=== PATIENT | male | born 1945 | race Caucasian/White ===

== ENCOUNTER 2022-03-22 15:12 | Inpatient (IN) ==
--- NOTE | 2022-03-22 16:50 | XRay Report ---
XR chest 2V PA/lateral CLINICAL HISTORY: Weakness, hypotension COMPARISON STUDY: No previous studies for comparison. FINDINGS: Right sided [id number] is in place. There are median sternotomy. Mild cardiomegaly is no walter. There is no evidence for pulmonary edema. No consolidation to suggest pneumonia. No pneumothorax or pleural effusion. IMPRESSION: No acute cardiopulmonary findings. ACT 112: Negative or not required by law. Electronically signed by: Jason Melendez M.D. 03/22/2022 4:48 PM
[2022-03-22 17:22] LABS: Basophils # (auto) 0.03 K/uL (0-0.2); Basophils % (auto) 0.4 %; Eosinophils # (auto) 0.11 K/uL (0-0.50); Eosinophils % (auto) 1.5 %; Hematocrit (blood only) 32.2 % (42.0-52.0); Hemoglobin 11.2 g/dl (14.0-18.0); Immature Granulocytes # (auto) 0.02 K/uL (0.01-0.20); Immature Granulocytes % (auto) 0.3 %; Lymphocytes # (auto) 0.99 K/uL (1.2-3.4); Lymphocytes % (auto) 13.7 %; Mean Corpuscular Hemoglobin 29.8 pg (25.0-34.0); Mean Corpuscular Hgb Conc 34.8 g/dL (32.0-36.0); Mean Corpuscular Volume 85.6 fL (80.0-100.0); Mean Platelet Volume 11.8 fL (9.4-12.4); Monocytes # (auto) 0.46 K/uL (0.11-0.59); Monocytes % (auto) 6.4 %; Neutrophils # (auto) 5.62 K/uL (1.40-6.50); Neutrophils % (auto) 77.7 %; Platelet Count 118 K/uL (130-400); RDW Coefficient of Variation 13.7 % (11.5-14.5); RDW Standard Deviation 42.7 fL (36.4-46.3); Red Blood Count 3.76 M/uL (4.70-6.10); White Blood Count 7.23 K/ul (4.8-10.8)
[2022-03-22 17:39] LABS: Alanine Aminotransferase 14 U/L (7-52); Albumin Level 4.4 gm/dl (3.4-5.0); Anion Gap 16 (3-11); Aspartate Aminotransferase 22 U/L (13-39); BUN Creatinine Ratio 14.8 (10-20); Bilirubin,Total 0.4 mg/dl (0.2-1.0); Blood Urea Nitrogen 126 mg/dl (6-23); Calcium 7.1 mg/dl (8.5-10.1); Carbon Dioxide 12 mmol/L (21-32); Chloride 108 mmol/L (98-107); Est GFR (African American) 6.3 ml/min; Est GFR (Non-African American) 5.4 ml/min; Glucose 165 mg/dl (70-99(Fasting)); Magnesium 1.6 mg/dl (1.7-2.4); Potassium 3.6 mmol/L (3.5-5.1); Sodium 136 mmol/L (136-145); Total Protein 7.4 gm/dl (6.0-8.3)
[2022-03-22 17:40] LABS: Albumin Globulin Ratio 1.5 (0.9-2); Alkaline Phosphatase 76 U/L (34-104); C Reactive Protein 3.25 mg/dl (0-0.5)
[2022-03-22 17:47] LABS: Prothrombin Time 80.9 Seconds (9.0-12.0)
[2022-03-22 17:49] LABS: INR 8.5 (0.9-1.1)
[2022-03-22 17:52] LABS: Lipase 2988 U/L (11-82)
[2022-03-22] MEDS ORDERED: SODIUM CHLORIDE 0.9% 1000ML 2,000 ML IV ONE (18:20)
--- NOTE | 2022-03-22 18:31 | History & Physical Report ---
Date of Service March 22, 2022 History of Present Illness Primary Care Provider: Doug Franklin MD Messi Londono is a 77 year old male who presents to the ER with Allergies Allergy/AdvReac Type Severity Reaction Status Date / Time ASHLEY Inhibitors AdvReac Intermediate COUGH Verified 02/23/22 14:56 Home Medications Medication Instructions Recorded Confirmed Type simvastatin 20 mg tablet 20 mg PO DAILY #90 tabs 08/11/21 02/23/22 Rx metoprolol tartrate 50 mg tablet 50 mg PO BID #60 tabs 09/08/21 02/23/22 Rx hydrochlorothiazide 12.5 mg tablet 12.5 mg PO .COMPLEX #45 tabs 10/06/21 02/23/22 Rx warfarin 5 mg tablet 5 mg PO .COMPLEX #90 tabs 03/16/22 Rx Past Med/Surg History Medical History Anemia Atrial fibrillation Dyslipidemia Elevated prostate specific antigen (PSA) Hypertension Multiple myeloma Surgical History H/O stem cell transplant S/P AVR (aortic valve replacement) Family History Mother Alzheimer disease Sister Breast cancer Father Myocardial infarction Denies family history of Ovarian cancer Prostate cancer Colorectal cancer Social History Smoking Status: Never smoker Hx Alcohol Use: No Hx Substance Use: No Preferred Language: Welsh Communication Ability: Effective marital status: Current Living Situation: Spouse current occupational status: employed 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 Feels Safe at Home: Yes Childhood Exposure to Second-Hand Smoke: No Dental Care, Regularly: Yes Physical Activity Frequency: 1-2 Times per Week Physical Activity Frequency Comment: walk Seatbelt Use: always Sunscreen Use: Yes Results & Data Results & Data ([facility]) Vital Signs (Past 12 Hours) Vital Signs Temp Pulse Resp BP Pulse Ox 03/22/22 17:10 62 12 122/57 L 100 03/22/22 17:17 36.6 C 03/22/22 15:17 36.5 C 74 14 123/66 100 PG Care Time/CCT Total # of Minutes Spent Total Time Spent with Patient: Total time spent is greater than 50% in coordination of care (as documented) at patient's floor/unit and/or counseling patient: Coding
[2022-03-22] MEDS ORDERED: LACTATED RINGER'S 2,000 ML IV ONE (18:42)
[2022-03-22] MEDS ORDERED: LACTATED RINGER'S 1,000 ML IV SCH (19:00)
[2022-03-22] MEDS ORDERED: MAGNESIUM SULFATE / D5W 1 GM/100 ML BAG IV SCH (19:00)
--- NOTE | 2022-03-22 19:01 | History & Physical Report ---
Date of Service March 22, 2022 Assessment & Plan (1) Diarrhea: Plan: This is a 77-year-old male with a history of atrial fibrillation, mechanical aortic valve replacement, chronic Warfarin use, dyslipidemia, hypertension, multiple myeloma, history of stem cell transplant who presented to [facility] for evaluation of profuse diarrhea, subsequently found to have an appreciable ANDREA on admission labs. [id number] Watery Diarrhea - In context of >6 months of intermittent, non voluminous watery diarrhea -- 2 weeks of worsening high-volume watery diarrhea with associated anorexia - ESR 47, CRP 3.25 on arrival; no leukocytosis; lytes largely stable in setting of profound ANDREA - Check nCT-A/P - Check BioFire and C diff -- if negative, consider fecal calprotectin and (if relevant) possibly fecal fat studies - Ample hydration will be provided as outlined below - Given length of time this has been ongoing, will likely need colonoscopy (last >10 years ago per patient) while here or as outpatient (can consider GI consult once studies return) (2) Acute kidney injury: Plan: ANDREA No reported history of prior CKD; however, per [facility] notes, 10/2021 labs with Cr 1.7 In the history of worsening watery diarrhea x2 weeks, suspect that ANDREA is secondary to intravascular depletion/dehydration with possible ATN component, likely compounded further by ongoing hydrochlorothiazide therapy Obtain urine studies including microscopy, sodium, creatinine Lactated Ringer's at 125 cc an hour following additional boluses No evidence of appreciable electrolyte derangement or findings that would necessitate dialysis at this time Trend labs, gentle electrolyte repletion as necessary Hold on nephrology consult right now -- consider if worsening / signs of dysfunction, impending needs for dialysis (3) Atrial fibrillation: Plan: Paroxysmal AFib In sinus rhythm on arrival, rate controlled with metoprolol Hold warfarin in the setting of supratherapeutic INR INR goal: 2.53.0 (4) Dyslipidemia: Plan: Hyperlipidemia Continue statin (5) Hypertension: Plan: Hypertension Hold hydrochlorothiazide in setting of profound ANDREA as above Pressures have been stable since arrival; will reduce metoprolol dose to 25 mg twice daily for now, increase back to home dose of 50 mg twice daily once acute needs have stabilized (6) S/P AVR (aortic valve replacement): Plan: AoV Replacement - Stable. On Warfarin. (7) H/O stem cell transplant: Plan: MM s/p Stem Cell Transplant in 2014 - Follows with [facility] -- completed chemotherapy in 2016 - Stable and in-remission. (8) Increased anion gap metabolic acidosis: Plan: Anion gap metabolic acidosis -- gap acidemia with AG 16 / HCO3 12 In the context of ongoing diarrhea and findings consistent with dehydration Likely more subacute at this point. Lactate 0.7 on admission but this was taken after several bags of fluid had been administered -- suspect this was a component prior, as is uremia. Continue fluid therapy as above, recheck in AM -- consider secondary work-up for AGMA if no improvement on serial labs over next several days (9) Supratherapeutic INR: Plan: Supratherapeutic INR - INR 8.5 on arrival - Suspect largely d/t poor PO intake over past several weeks - Hold home warfarin - Will defer vitamin K therapy for now -- if increasing/not changing on day-to-day labs, can consider 5-10mg IM (10) Elevated lipase: Plan: Elevated Lipase - at 3000 on admission - Clinically does not appear c/w pancreatitis. Likely contributory from renal insufficiency, ?possibly intestinal inflammation, acidemia - CT-A/P as above, ample hydration Plan Code: Full Diet: regualr Prophylaxis: Warfarin therapy, supratherapeutic INR, hold for now Dispo: MS Admission and Anticipated Discharge Date Admission Date: Mar 22, 2022 History of Present Illness Primary Care Provider: Doug Franklin MD This is a 77-year-old male with a history of atrial fibrillation, mechanical aortic valve replacement, chronic Warfarin use, dyslipidemia, hypertension, multiple myeloma, history of stem cell transplant who presented to [facility] for evaluation of weakness. Over the past 6 months, patient endorses intermittent episodes of diarrhea. He says they were relatively lower volume and did not contain blood/mucus. He says that over the past two weeks, they have increased in volume and frequency. Several times a day, very watery in appearance. No melena or hematochezia. He denies abdominal pain. He says his appetite has been lousy. He is not drinking much water or eating much each day -- really just toast and coffee, per his . No nausea, vomiting. Denies recent CP/palpitations/SOB/cough. Apparently he was notably hypothermic at home to 91.9F in the day prior to admission. He has not been confused, but has been extremely weak, "spending all day in bed, 24/" over the past week or so. His last colonoscopy was >10 years ago. He endorses a long-term history of loose stools. He denies EtOH, tobacco, or drug use. No herbal remedies or supplements. In the ER, patient was found to have normal vital signs. Admission weight at 73.9 kg from 77.6 kg in July 2021. Admission labs reveal WBC 7.2, hemoglobin 11.2, platelet 118, relative lymphopenia, ESR 47, CRP 3.25, supratherapeutic INR 8.5. Metabolic panel revealing BUN 126/creatinine 8.5, gap acidemia with AG 16 / HCO3 12, potassium 3.6, magnesium 1.6, calcium 7.1. Lipase notably elevated at 3000. TSH 1.7. CXR normal. He was given 2 L of normal saline. Allergies Allergy/AdvReac Type Severity Reaction Status Date / Time ASHLEY Inhibitors AdvReac Intermediate COUGH Verified 03/22/22 19:14 Home Medications Medication Instructions Recorded Confirmed Type simvastatin 20 mg tablet 20 mg PO DAILY #90 tabs 08/11/21 03/22/22 Rx metoprolol tartrate 50 mg tablet 50 mg PO BID #60 tabs 09/08/21 03/22/22 Rx hydrochlorothiazide 12.5 mg tablet 12.5 mg PO .COMPLEX #45 tabs 10/06/21 03/22/22 Rx warfarin 5 mg tablet 5 mg PO .COMPLEX #90 tabs 03/16/22 03/22/22 Rx Past Med/Surg History Medical History Anemia Atrial fibrillation Dyslipidemia Elevated prostate specific antigen (PSA) Hypertension Multiple myeloma Surgical History H/O stem cell transplant S/P AVR (aortic valve replacement) Family History Mother Alzheimer disease Sister Breast cancer Father Myocardial infarction Denies family history of Ovarian cancer Prostate cancer Colorectal cancer Social History Smoking Status: Never smoker Hx Alcohol Use: No Hx Substance Use: No Preferred Language: Haitian Communication Ability: Effective Felt Hanger Required: No Beliefs That Will Affect Care: None marital status: Current Living Situation: Spouse current occupational status: employed 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 HEENT: NCAT. - Eyes - Sclera are white, anicteric, and without injection. - Mouth - MMM - Neck - supple, no appreciable JVD Cardiac: Normal rate and regular rhythm; S1 and S2 present with grade 2/6 ESTUARDO at the RUSB radiating toward the apex. Pulmonary: Good respiratory effort with symmetric expansion of the chest. No use of accessory muscles. Lungs were clear to auscultation bilaterally with no crackles or wheezes. Abdominal: Normoactive bowel sounds. Abdomen was soft, nondistended, and non- tender to palpation. Extremities: Upper and lower extremities are warm and well perfused. No peripheral edema in the lower extremities bilaterally Psych: Well-developed, well-nourished, appropriately dressed for occasion. Behavior is cooperative and appropriate. Affect is WNL. Insight is appropriate. Results & Data Results & Data ([facility]) Vital Signs (Past 12 Hours) Vital Signs Temp Pulse Resp BP Pulse Ox 03/22/22 17:10 62 12 122/57 L 100 03/22/22 17:17 36.6 C 03/22/22 15:17 36.5 C 74 14 123/66 100 Laboratory Results Abnormal lab results 03/22/22 03/22/22 03/22/22 Range/Units 16:42 16:42 16:42 RBC 3.76 L (4.70-6.10) M/uL Hgb 11.2 L (14.0-18.0) g/dl Hct 32.2 L (42.0-52.0) % Plt Count 118 L (130-400) K/uL Lymph # (Auto) 0.99 L (1.2-3.4) K/uL ESR 47 H (0-20) mm/hr PT (9.0-12.0) Seconds INR (0.9-1.1) Chloride 108 H (98-107) mmol/L Carbon Dioxide 12 L (21-32) mmol/L Anion Gap 16 H (3-11) BUN 126 H (6-23) mg/dl Creatinine 8.50 H* (0.6-1.4) mg/dl Glucose 165 H (70-99(Fasting)) mg/dl Calcium 7.1 L (8.5-10.1) mg/dl Magnesium 1.6 L (1.7-2.4) mg/dl C-Reactive Protein 3.25 H (0-0.5) mg/dl Lipase 2988 H (11-82) U/L 03/22/22 Range/Units 16:42 RBC (4.70-6.10) M/uL Hgb (14.0-18.0) g/dl Hct (42.0-52.0) % Plt Count (130-400) K/uL Lymph # (Auto) (1.2-3.4) K/uL ESR (0-20) mm/hr PT 80.9 H (9.0-12.0) Seconds INR 8.5 H* (0.9-1.1) Chloride (98-107) mmol/L Carbon Dioxide (21-32) mmol/L Anion Gap (3-11) BUN (6-23) mg/dl Creatinine (0.6-1.4) mg/dl Glucose (70-99(Fasting)) mg/dl Calcium (8.5-10.1) mg/dl Magnesium (1.7-2.4) mg/dl C-Reactive Protein (0-0.5) mg/dl Lipase (11-82) U/L Supervising Physician Co-Signing Physician Notes I personally saw and examined the patient. I verified all taylor points and agree with Resident Physician PGY 3 Dylon Jang, with the following exceptions and/or additions: 77-year-old male presents to the ER with multiple months of diarrhea but acute worsening in the last 2 weeks. Significant renal failure in the emergency room with creatinine 8.5 and BUN 126. O/E A&Ox3, in no acute distress, HS1+2, no murmurs, Chest CTAB, Abdo SNT, no CVA tenderness A/P Acute kidney injury - suspect secondary to diarrhea and fluid loss over a long period of time in the setting of hydrochlorothiazide use. No obstructive cause on CT. No acute need for dialysis with no pulmonary edema, hyperkalemia or significant uremic symptoms. Strict I&Os, daily weights. Mixed Anion gap and non-anion gap metabolic acidosis - we will initially rehydrate with 2L LR bolus, lactate normal following this therefore unclear if this represented the anion gap although most likely due to uremia and no need for further work this up. Will repeat labs following the fluid resuscitation to decide on sodium bicarb drip Pancreatic mass - seen on CT, will need to perform with contrast once renal function improved, will get CA19-9 with AM labs Renal mass - seen on CT, will need to repeat CT with contrast once renal function improved Diarrhea/enteritis - stool PCR and c. diff testing pending. CT with non-specific enteritis ?related to pancreatic lesion. Consider Imodium once infectious etiology ruled out. Elevated INR - no current bleeding from history. Not significantly anemic. We will hold warfarin but given mechanical heart valve will avoid reversal agent at this time. Resident Activity Tracking Resident Involvement: Resident Care Provided Care Provided: Adult Hospital Medicine
[2022-03-22] MEDS: POTASSIUM CHLORIDE / WTR 10 MEQ/100 ML PLCT IV SCH (19:16)
--- NOTE | 2022-03-22 20:57 | CT Scan Report ---
CT SCAN OF THE ABDOMEN AND PELVIS WITHOUT IV CONTRAST CLINICAL HISTORY: Acute renal insufficiency. Diarrhea. COMPARISON STUDY: No priors. TECHNIQUE: CT scan of the abdomen and pelvis is performed from the lung bases to the proximal femora. Images are reviewed in the axial, sagittal, and coronal planes. IV contrast was not administered for this examination due to poor renal function. Note that the examination is suboptimal without oral an d IV contrast. A dose lowering technique was utilized adhering to the principles of ALARA. CT DOSE: 383.50 mGy.cm FINDINGS: Lung bases: The heart is enlarged and without pericardial effusion. There is bibasilar scarring/atele ctasis. Traction bronchiectasis is seen at both lung bases. Visualized upper septal thickening indica olga fluid overload/congestive failure. No airspace consolidation or pleural effusion is identified. T here is a small hiatal hernia. Liver: The unenhanced liver is normal in size, contour, and attenuation. There is no intrahepatic elizabeth iary ductal dilatation. Gallbladder: There are calcified gallstones without CT evidence of acute cholecystitis. Spleen: Normal in size and attenuation. Pancreas: Question a 1.8 cm low-attenuation lesion within the uncinate process of the pancreas. The u nenhanced pancreas is otherwise grossly unremarkable but not well evaluated without IV contrast. Adrenal glands: Unremarkable. Kidneys: The unenhanced kidneys are normal in size and without hydronephrosis. There are no renal derrek culi identified. Simple and complex/hyperdense renal cyst measure up to 2.9 cm. A 1.2 cm lesion arisi ng from the right lower pole on image #168 distended criteria for a cyst. Abdominal vasculature: The abdominal aorta is normal in course and caliber noting advanced atheroscle rotic calcification. Bowel: There is no bowel obstruction. There are fluid-filled loops of small bowel. The appendix is w ell-visualized and normal. Peritoneum: There is no intraperitoneal free air or abdominal ascites. There is a fat-containing umbi lical hernia. Lymphadenopathy: None. Pelvic viscera: The bladder is significantly distended but otherwise normal appearance. The prostate gland is enlarged and heterogeneous. Skeletal structures: The skeletal structures are osteopenic. The skeletal structures are heterogeneou sly osteopenic. There is mild lumbosacral spondylosis. There is a chronic superior endplate compressi on deformity of T12. No lytic or blastic lesions are seen. IMPRESSION: 1. There are nonspecific fluid-filled loops of small bowel. No bowel wall thickening or inflammation is seen. Correlate clinically for evidence of a nonspecific enteritis. 2. There is no bowel obstruction. 3. Question a 1.8 cm low-attenuation lesion within the uncinate process of the pancreas. This is not well assessed without IV contrast and may be artifactual. Correlation with a contrast enhanced pancre as protocol CT scan is recommended for further assessment and to exclude underlying pancreatic lesion . 4. There is a 12 mm indeterminant lesion arising from the right kidney. This can also be further asse ssed on the contrast-enhanced CT scan. 5. Cholelithiasis. 6. Cardiomegaly. 7. Bladder distention. 8. Additional findings as above. ACT 112: Negative or not required by law. Electronically signed by: Cuauhtemoc Fuchs M.D. 03/22/2022 8:55 PM
[2022-03-22 21:18] LABS: Appearance Urine Clear (Clear); Bacteria Urine Automated Negative (Negative); Bilirubin Urine Negative (Negative); Blood Urine Trace (Negative); Color Urine Yellow; Glucose Urine UA Negative (Negative); Ketones Urine Negative (Negative); Leukocyte Esterase Urine Negative (Negative); Nitrite Urine Negative (Negative); Protein Urine 1+ (Negative); RBC Urine Automated 0-4 /hpf (0-4); Urobilinogen Urine Negative (Negative)
[2022-03-22 21:31] LABS: Base Excess VBG -16.7 mEq/L; HCO3 VBG 11 mmol/L; Oxygen Saturation VBG < 60.0 %; PCO2 VBG 30 mmHg (38-50); PO2 VBG 34 mmHg; pH VBG 7.16 (7.36-7.41)
[2022-03-22] MEDS: METOPROLOL TARTRATE 25 MG TAB PO SCH (21:46)
[2022-03-22 22:18] LABS: Anion Gap 16 (3-11); Calcium 6.9 mg/dl (8.5-10.1); Carbon Dioxide 10 mmol/L (21-32); Chloride 113 mmol/L (98-107); Potassium 3.3 mmol/L (3.5-5.1); Sodium 139 mmol/L (136-145)
[2022-03-22 22:29] LABS: Blood Urea Nitrogen 118 mg/dl (6-23); Est GFR (African American) 6.8 ml/min; Est GFR (Non-African American) 5.9 ml/min; Glucose 124 mg/dl (70-99(Fasting))
[2022-03-23] MEDS ORDERED: SODIUM BICARBONATE 8.4% 100 MEQ in DEXTROSE 5% 1,000 ML IV SCH
[2022-03-23] MEDS ORDERED: STAT IV STA ×2 (00:03)
--- NOTE | 2022-03-23 00:22 | Emergency Department Note ---
Impression & Plan Acute renal failure, Supratherapeutic INR, Acute pancreatitis Admit to the [facility] for aggressive crystalloid therapy ED Provider Note NAME: HIRAM BEAL AGE: 77 SEX: M ARRIVES VIA: Walk-In INFORMANT: Patient and his ED PROVIDER(S): Miriam Lucia DO CHIEF COMPLAINT: Diarrhea and weakness PLAN: Disposition: Admit to the [facility] Condition: Guarded MEDICAL DECISION MAKING: This is a 77-year-old male patient who presents to the emergency department with diarrhea and weakness over the last 2 weeks. Laboratory studies reveal acute renal failure with a creatinine of 8.5. The patient's baseline is 1.2. The patient has had severe diarrhea for more than 2 weeks. The source of the diarrhea is unknown at this time. He denies being on antibiotics in the past couple of weeks. He does have routine colonoscopies according to the patient and his . He has had not had weight loss in the past 6 months. Patient is mildly anemic with a hemoglobin of 11.2. He does have a supratherapeutic INR at 8.5. Of note, the patient also has a lipase of 2988. On physical exam, he has no significant appreciable abdominal pain in the epigastrium. He does have some generalized abdominal pain in the right and left lower quadrants of the abdomen. The patient is receiving aggressive IV crystalloid therapy through to IV lines. He appears significantly dehydrated on physical exam. I have discussed the case with the [facility] and they will admit the patient to the hospital for aggressive management of acute renal failure. Triage Nursing notes reviewed and agree with them. Additional history obtained from the patient's is at the bedside Vital Signs: reviewed and remarkable for hypotension Differential diagnosis: Dehydration, renal insufficiency, infectious diarrhea, pancreatitis, UTI ER treatment provided: IV normal saline bolus Diagnostics interpreted by me: ECG: Normal sinus rhythm at a rate of 67 with PACs. There is no ST segment elevation or signs of ischemia. There is no ectopy Cardiac Monitoring: Normal sinus rhythm at 68 Laboratory studies: See below Imaging studies: As per my interpretation Portable chest x-ray: No acute pulmonary infiltrates or consolidation HPI: 77/M arrives for evaluation of diarrhea and weakness. According to the patient's , the patient has had persistent diarrhea and weakness over the past 2 weeks. He has had significant decreased appetite. They became more concerned today when the patient was noted to be hypothermic and hypotensive. Patient has been trying to drink clear liquids but had signs of dehydration. PAST MEDICAL HISTORY:Multiple myeloma, hypertension, [facility] aortic valve replacement 1997 PAST SURGICAL HISTORY:See Below FAMILY HISTORY:See Below SOCIAL HISTORY:Patient lives with his ; he does not drink alcohol or smoke. HOME MEDICATIONS:See ALLERGIES:See list VITALS:See Below PHYSICAL EXAMINATION: HEENT: Head - normocephalic and atraumatic Pupils are equal, round, and reactive to light. Extraocular eye muscles are intact, and sclera are anicteric. Nose -extremely dry nasal mucosa without discharge. Mouth - extremely dry buccal mucosa. Oropharynx is nonerythematous and there is no tonsillar exudate or edema noted. Neck: Supple; no cervical lymphadenopathy Heart: Regular rate and rhythm. There is a normal S1 and S2 with no murmurs, clicks, or gallops appreciated. Lungs: Clear to auscultation bilaterally with no wheezes, rales, or rhonchi. Abdomen: Soft, completely nontender, nondistended, with good bowel sounds. There are no palpable pulsatile masses or hepatosplenomegaly. There is no guarding, rigidity, or rebound noted. Extremities: No evidence of cyanosis, clubbing, or edema. There are easily palpable peripheral pulses. Skin: Extremely dry with poor turgor and no rashes. ED COURSE: Times/Reassessments: 1755 patient was evaluated in room C6. A complete history and physical was performed. A twelve-lead EKG was obtained as described above. An IV lock was initiated and labs were drawn as above. An order was placed for continuous cardiac monitoring. The patient was in a normal sinus rhythm at a rate of 68. Patient was bolused with IV normal saline solution. A second IV lock was initiated and a second liter of IV normal saline was initiated. Portable chest x-ray was performed as described above. I have personally spent greater than 30 minutes of critical care time in the direct management of this patient. This includes bedside care, interpretation of diagnostic studies, and testing, discussion with consultants, patient, and family members, and other required patient management activities. This 30 minutes is in excess of all separately billable procedures. Miriam Lucia DO Past Med/Surg History Medical History Anemia Atrial fibrillation Dyslipidemia Elevated prostate specific antigen (PSA) Hypertension Multiple myeloma Surgical History H/O stem cell transplant S/P AVR (aortic valve replacement) Family History Mother Alzheimer disease Sister Breast cancer Father Myocardial infarction Denies family history of Ovarian cancer Prostate cancer Colorectal cancer Social History Smoking Status: Never smoker Hx Alcohol Use: No Hx Substance Use: No Preferred Language: Moroccan Communication Ability: Effective Sprinkling System Installer Required: No Beliefs That Will Affect Care: None marital status: Current Living Situation: Spouse current occupational status: employed current occupation: [employer] Feels Safe at Home: Yes Childhood Exposure to Second-Hand Smoke: No Dental Care, Regularly: Yes Physical Activity Frequency: 1-2 Times per Week Physical Activity Frequency Comment: walk Seatbelt Use: always Sunscreen Use: Yes Assistive Devices: None Allergies Allergies Allergy/AdvReac Type Severity Reaction Status Date / Time ASHLEY Inhibitors AdvReac Intermediate COUGH Verified 03/22/22 19:14 Home Meds Previous Rx's Medication Instructions Recorded simvastatin 20 mg tablet 20 mg PO DAILY #90 tabs 08/11/21 metoprolol tartrate 50 mg tablet 50 mg PO BID #60 tabs 09/08/21 hydrochlorothiazide 12.5 mg tablet 12.5 mg PO .COMPLEX #45 tabs 10/06/21 warfarin 5 mg tablet 5 mg PO .COMPLEX #90 tabs 03/16/22 Results & Data (ED) Vital Signs Vital Signs - 24 hr 03/22/22 17:17 03/22/22 17:10 03/22/22 17:20 Temperature 36.6 C Temperature Source Oral Pulse Rate 62 62 Pulse Rate from SpO2 Sensor 62 62 Respiratory Rate 12 16 Blood Pressure 122/57 L Blood Pressure Mean 78 Pulse Oximetry 100 100 03/22/22 17:30 03/22/22 17:30 03/22/22 17:40 Temperature Temperature Source Pulse Rate Pulse Rate from SpO2 Sensor 65 62 Respiratory Rate Blood Pressure 111/57 L Blood Pressure Mean 75 Pulse Oximetry 100 100 03/22/22 17:50 03/22/22 18:00 03/22/22 18:00 Temperature Temperature Source Pulse Rate Pulse Rate from SpO2 Sensor 64 66 Respiratory Rate Blood Pressure 125/60 Blood Pressure Mean 81 Pulse Oximetry 100 100 03/22/22 18:10 03/22/22 18:20 03/22/22 18:30 Temperature Temperature Source Pulse Rate Pulse Rate from SpO2 Sensor 67 63 Respiratory Rate Blood Pressure 119/58 L Blood Pressure Mean 78 Pulse Oximetry 100 98 03/22/22 18:30 03/22/22 18:40 03/22/22 18:50 Temperature Temperature Source Pulse Rate 66 Pulse Rate from SpO2 Sensor 64 64 67 Respiratory Rate 17 Blood Pressure Blood Pressure Mean Pulse Oximetry 100 100 100 03/22/22 19:00 03/22/22 19:00 Temperature Temperature Source Pulse Rate 69 Pulse Rate from SpO2 Sensor 68 Respiratory Rate 17 Blood Pressure 119/58 L Blood Pressure Mean 78 Pulse Oximetry 100 Laboratory Data 03/22/22 16:42 03/22/22 21:02 Lab Results 03/22/22 03/22/22 03/22/22 Range/Units 16:42 16:42 16:42 WBC 7.23 (4.8-10.8) K/ul RBC 3.76 L (4.70-6.10) M/uL Hgb 11.2 L (14.0-18.0) g/dl Hct 32.2 L (42.0-52.0) % MCV 85.6 (80.0-100.0) fL MCH 29.8 (25.0-34.0) pg MCHC 34.8 (32.0-36.0) g/dL RDW Std Deviation 42.7 (36.4-46.3) fL RDW Coeff of Berto 13.7 (11.5-14.5) % Plt Count 118 L (130-400) K/uL MPV 11.8 (9.4-12.4) fL Immature Gran % (Auto) 0.3 % Neut % (Auto) 77.7 % Lymph % (Auto) 13.7 % [place] % (Auto) 6.4 % Eos % (Auto) 1.5 % Baso % (Auto) 0.4 % Neut # (Auto) 5.62 (1.40-6.50) K/uL Lymph # (Auto) 0.99 L (1.2-3.4) K/uL [place] # (Auto) 0.46 (0.11-0.59) K/uL Eos # (Auto) 0.11 (0-0.50) K/uL Baso # (Auto) 0.03 (0-0.2) K/uL Immature Gran # (Auto) 0.02 (0.01-0.20) K/uL ESR 47 H (0-20) mm/hr PT (9.0-12.0) Seconds INR (0.9-1.1) Sodium 136 (136-145) mmol/L Potassium 3.6 (3.5-5.1) mmol/L Chloride 108 H (98-107) mmol/L Carbon Dioxide 12 L (21-32) mmol/L Anion Gap 16 H (3-11) BUN 126 H (6-23) mg/dl Creatinine 8.50 H* (0.6-1.4) mg/dl Est Cr Clr Drug Dosing Not Reportable Est GFR ( Amer) 6.3 ml/min Est GFR (Non-Af Amer) 5.4 ml/min BUN/Creatinine Ratio 14.8 (10-20) Glucose 165 H (70-99(Fasting)) mg/dl Calcium 7.1 L (8.5-10.1) mg/dl Magnesium 1.6 L (1.7-2.4) mg/dl Total Bilirubin 0.4 (0.2-1.0) mg/dl AST 22 (13-39) U/L ALT 14 (7-52) U/L Alkaline Phosphatase 76 (34-104) U/L Troponin I High Sens 18.0 (0-20) pg/ml C-Reactive Protein 3.25 H (0-0.5) mg/dl Total Protein 7.4 (6.0-8.3) gm/dl Albumin 4.4 (3.4-5.0) gm/dl Globulin 3.0 (2.5-4.0) gm/dl Albumin/Globulin Ratio 1.5 (0.9-2) Lipase 2988 H (11-82) U/L TSH (0.300-4.500) uIu/ml SARS-CoV-2, RNA, NAAT (NEGATIVE) 03/22/22 03/22/2223 Range/Units 16:42 16:42 18:35 WBC (4.8-10.8) K/ul RBC (4.70-6.10) M/uL Hgb (14.0-18.0) g/dl Hct (42.0-52.0) % MCV (80.0-100.0) fL MCH (25.0-34.0) pg MCHC (32.0-36.0) g/dL RDW Std Deviation (36.4-46.3) fL RDW Coeff of Berto (11.5-14.5) % Plt Count (130-400) K/uL MPV (9.4-12.4) fL Immature Gran % (Auto) % Neut % (Auto) % Lymph % (Auto) % [place] % (Auto) % Eos % (Auto) % Baso % (Auto) % Neut # (Auto) (1.40-6.50) K/uL Lymph # (Auto) (1.2-3.4) K/uL [place] # (Auto) (0.11-0.59) K/uL Eos # (Auto) (0-0.50) K/uL Baso # (Auto) (0-0.2) K/uL Immature Gran # (Auto) (0.01-0.20) K/uL ESR (0-20) mm/hr PT 80.9 H (9.0-12.0) Seconds INR 8.5 H* (0.9-1.1) Sodium (136-145) mmol/L Potassium (3.5-5.1) mmol/L Chloride (98-107) mmol/L Carbon Dioxide (21-32) mmol/L Anion Gap (3-11) BUN (6-23) mg/dl Creatinine (0.6-1.4) mg/dl Est Cr Clr Drug Dosing Est GFR ( Amer) ml/min Est GFR (Non-Af Amer) ml/min BUN/Creatinine Ratio (10-20) Glucose (70-99(Fasting)) mg/dl Calcium (8.5-10.1) mg/dl Magnesium (1.7-2.4) mg/dl Total Bilirubin (0.2-1.0) mg/dl AST (13-39) U/L ALT (7-52) U/L Alkaline Phosphatase (34-104) U/L Troponin I High Sens (0-20) pg/ml C-Reactive Protein (0-0.5) mg/dl Total Protein (6.0-8.3) gm/dl Albumin (3.4-5.0) gm/dl Globulin (2.5-4.0) gm/dl Albumin/Globulin Ratio (0.9-2) Lipase (11-82) U/L TSH 1.734 (0.300-4.500) uIu/ml SARS-CoV-2, RNA, NAAT NEGATIVE (NEGATIVE) Administered Medications Sodium Bicarbonate 150 meq/ (Dextrose) 1,150 mls @ 125 mls/hr IV .Q9H12M SYLVIA Stop: 04/22/22 00:14 Last Admin: 03/23/22 09:18 Dose: 125 mls/hr Documented By: Infusion: 03/23/22 09:18 Dose: 125 mls/hr Documented By: Admin: 03/23/22 00:47 Dose: 125 mls/hr Documented By: JASIEL Metoprolol Tartrate (Metoprolol Tartrate 25 Mg Tab) 25 mg PO BID [facility] Stop: 04/21/22 20:59 Last Admin: 03/23/22 07:46 Dose: 25 mg Documented By: Admin: 03/22/22 21:46 Dose: 25 mg Documented By: JASIEL Simvastatin (Simvastatin 20 Mg Tab) 20 mg PO DAILY SYLVIA Stop: 04/22/22 08:59 Last Admin: 03/23/22 07:46 Dose: 20 mg Documented By: YUE Discontinued Medications Sodium Chloride (Nss 1000ml) 2,000 mls @ 999 mls/hr IV .Q2H1M ONE Stop: 03/22/22 20:20 Last Infusion: 03/22/22 18:51 Dose: 0 mls/hr Documented By: Admin: 03/22/22 18:36 Dose: 999 mls/hr Documented By: GRACIELA Lactated Ringer's (Lr) 2,000 mls @ 999 mls/hr IV .Q2H1M ONE Stop: 03/22/22 20:42 Last Infusion: 03/22/22 21:00 Dose: 0 mls/hr Documented By: Admin: 03/22/22 19:16 Dose: 999 mls/hr Documented By: ENRIQUE Magnesium Sulfate/Dextrose (Magnesium Sulfate / D5w) 1 gm in 100 mls @ 50 mls/hr IV Q2H SYLVIA Stop: 03/22/22 22:59 Last Infusion: 03/22/22 20:58 Dose: 0 mls/hr Documented By: Admin: 03/22/22 19:15 Dose: 50 mls/hr Documented By: ENRIQUE Potassium Chloride (K Fidencio / Wtr) 10 meq in 100 mls @ 100 mls/hr IV Q1H SYLVIA Stop: 03/22/22 20:59 Last Admin: 03/23/22 07:00 Dose: Not Given Documented By: Infusion: 03/22/22 20:17 Dose: 0 mls/hr Documented By: [facility] Admin: 03/22/22 19:16 Dose: 100 mls/hr Documented By: ENRIQUE Lactated Ringer's (Lr) 1,000 mls @ 125 mls/hr IV .Q8H SYLVIA Stop: 03/23/22 10:59 Last Infusion: 03/23/22 07:01 Dose: 0 mls/hr Documented By: Admin: 03/22/22 21:45 Dose: 125 mls/hr Documented By: JASIEL Sodium Bicarbonate 100 meq/ (Dextrose) 1,100 mls @ 125 mls/hr IV .Q8H48M SYLVIA Stop: 04/22/22 00:00 Last Admin: 03/23/22 07:00 Dose: Not Given Documented By: Potassium Chloride (K Fidencio / Wtr) 10 meq in 100 mls @ 100 mls/hr IV Q1H SYLVIA Stop: 03/23/22 10:29 Last Infusion: 03/23/22 10:59 Dose: 0 mls/hr Documented By: Admin: 03/23/22 09:44 Dose: 100 mls/hr Documented By: Infusion: 03/23/22 09:44 Dose: 100 mls/hr Documented By: Admin: 03/23/22 08:46 Dose: 100 mls/hr Documented By: Infusion: 03/23/22 08:46 Dose: 100 mls/hr Documented By: Admin: 03/23/22 07:56 Dose: 100 mls/hr Documented By: Magnesium Sulfate/Dextrose (Magnesium Sulfate / D5w) 1 gm in 100 mls @ 50 mls/hr IV Q2H SYLVIA Stop: 03/23/22 11:29 Last Infusion: 03/23/22 11:41 Dose: 0 mls/hr Documented By: Admin: 03/23/22 09:43 Dose: 50 mls/hr Documented By: Infusion: 03/23/22 09:43 Dose: 50 mls/hr Documented By: Admin: 03/23/22 07:56 Dose: 50 mls/hr Documented By: YUE Phytonadione (Phytonadione 5 Mg Tab) 5 mg PO NOW STA Stop: 03/23/22 07:29 Last Admin: 03/23/22 07:46 Dose: 5 mg Documented By: YUE Imaging Data Radiologist's Impression: Chest X-Ray 03/22/22 15:29 XR chest 2V PA/lateral CLINICAL HISTORY: Weakness, hypotension COMPARISON STUDY: No previous studies for comparison. FINDINGS: Right sided [id number] is in place. There are median sternotomy. Mild cardiomegaly is noted. There is no evidence for pulmonary edema. No consolidation to suggest pneumonia. No pneumothorax or pleural effusion. IMPRESSION: No acute cardiopulmonary findings. ACT 112: Negative or not required by law. Electronically signed by: Jason Melendez M.D. 03/22/2022 4:48 PM Abdomen/Pelvis CT 03/22/22 18:43 CT SCAN OF THE ABDOMEN AND PELVIS WITHOUT IV CONTRAST CLINICAL HISTORY: Acute renal insufficiency. Diarrhea. COMPARISON STUDY: No priors. TECHNIQUE: CT scan of the abdomen and pelvis is performed from the lung bases to the proximal femora. Images are reviewed in the axial, sagittal, and coronal planes. IV contrast was not administered for this examination due to poor renal function. Note that the examination is suboptimal without oral and IV contrast. A dose lowering technique was utilized adhering to the principles of ALARA. CT DOSE: 383.50 mGy.cm FINDINGS: Lung bases: The heart is enlarged and without pericardial effusion. There is bibasilar scarring/atelectasis. Traction bronchiectasis is seen at both lung bases. Visualized upper septal thickening indicates fluid overload/congestive failure. No airspace consolidation or pleural effusion is identified. There is a small hiatal hernia. Liver: The unenhanced liver is normal in size, contour, and attenuation. There is no intrahepatic biliary ductal dilatation. Gallbladder: There are calcified gallstones without CT evidence of acute cholecystitis. Spleen: Normal in size and attenuation. Pancreas: Question a 1.8 cm low-attenuation lesion within the uncinate process of the pancreas. The unenhanced pancreas is otherwise grossly unremarkable but not well evaluated without IV contrast. Adrenal glands: Unremarkable. Kidneys: The unenhanced kidneys are normal in size and without hydronephrosis. There are no renal calculi identified. Simple and complex/hyperdense renal cyst measure up to 2.9 cm. A 1.2 cm lesion arising from the right lower pole on image #168 distended criteria for a cyst. Abdominal vasculature: The abdominal aorta is normal in course and caliber noting advanced atherosclerotic calcification. Bowel: There is no bowel obstruction. There are fluid-filled loops of small bowel. The appendix is well-visualized and normal. Peritoneum: There is no intraperitoneal free air or abdominal ascites. There is a fat-containing umbilical hernia. Lymphadenopathy: None. Pelvic viscera: The bladder is significantly distended but otherwise normal appearance. The prostate gland is enlarged and heterogeneous. Skeletal structures: The skeletal structures are osteopenic. The skeletal structures are heterogeneously osteopenic. There is mild lumbosacral spondylosis. There is a chronic superior endplate compression deformity of T12. No lytic or blastic lesions are seen. IMPRESSION: 1. There are nonspecific fluid-filled loops of small bowel. No bowel wall thickening or inflammation is seen. Correlate clinically for evidence of a nonspecific enteritis. 2. There is no bowel obstruction. 3. Question a 1.8 cm low-attenuation lesion within the uncinate process of the pancreas. This is not well assessed without IV contrast and may be artifactual. Correlation with a contrast enhanced pancreas protocol CT scan is recommended for further assessment and to exclude underlying pancreatic lesion. 4. There is a 12 mm indeterminant lesion arising from the right kidney. This can also be further assessed on the contrast-enhanced CT scan. 5. Cholelithiasis. 6. Cardiomegaly. 7. Bladder distention. 8. Additional findings as above. ACT 112: Negative or not required by law. Electronically signed by: Cuauhtemoc Fuchs M.D. 03/22/2022 8:55 PM Discharge Plan Visit Data Chief Complaint: Lethargic Stated Complaint: DIARRHEA, WEAKNESS, NO APPETITE, LOW BP ED Provider: Miriam Lucia Discharge Problem: Acute renal failure, Supratherapeutic INR, Acute pancreatitis Patient Disposition: Admitted As Inpatient Discharge Instructions Interventions: ED Discharge Assessment Last Done: 03/22/22 20:26 : Acute renal failure Qualifiers: Acute renal failure type: unspecified Qualified Code(s): N17.9 - Acute kidney failure, unspecified Acute pancreatitis Qualifiers: Pancreatitis type: unspecified pancreatitis type
--- NOTE | 2022-03-23 00:25 | Billing Data ---
Date of Service March 22, 2022 Coding Level of Care Code 76864 INT INP/OBS CARE
[2022-03-23] MEDS: SODIUM BICARBONATE 8.4% 150 MEQ in DEXTROSE 5% 1,000 ML IV SCH ×3 (00:47→17:33)
[2022-03-23 02:07] LABS: Adenovirus F 40/41 PCR Not Detected (NotDetected); Astrovirus PCR Not Detected (NotDetected); Campylobacter PCR Not Detected (NotDetected); Cryptosporidium PCR Not Detected (NotDetected); Cyclospora cayetanensis PCR Not Detected (NotDetected); Entamoeba histolytica PCR Not Detected (NotDetected); Enteroaggregative E.coli(EAEC) Not Detected (NotDetected); Enteropathogenic E.coli (EPEC) Not Detected (NotDetected); Enterotoxigenic E.coli (ETEC) Not Detected (NotDetected); Giardia lamblia PCR Not Detected (NotDetected); Norovirus GI/GII PCR Not Detected (NotDetected); Plesiomonas shigelloides PCR Not Detected (NotDetected); Rotavirus A PCR Not Detected (NotDetected); Salmonella PCR Not Detected (NotDetected); Sapovirus PCR Not Detected (NotDetected); Shiga-like Toxin E.coli (STEC) Not Detected (NotDetected); Shigella/Enteroinvasive E.coli Not Detected (NotDetected); Vibrio cholerae PCR Not Detected (NotDetected); Vibrio species PCR Not Detected (NotDetected); Yersinia enterocolitica PCR Not Detected (NotDetected)
--- NOTE | 2022-03-23 06:55 | Hospitalist Progress Note ---
Date of Service March 23, 2022 Assessment & Plan (1) Diarrhea: (2) Acute kidney injury: (3) Atrial fibrillation: (4) Dyslipidemia: (5) Hypertension: (6) S/P AVR (aortic valve replacement): (7) H/O stem cell transplant: (8) Increased anion gap metabolic acidosis: (9) Supratherapeutic INR: (10) Elevated lipase: Plan Messi is a 77 year old male with history of Multiple Myeloma (s/p Stem Cell Transplant), A Fib, mechanical aortic valve, HTN, dyslipidemia, and BPH. Who presented to the hospital with a 6 month history of worsening diarrhea. Patient was admitted to the hospital for acute kidney injury in association with anion gap metabolic acidosis. Pancreatic and renal masses were noted on non-contrast CT scan. Gkhaj-en-Vepcyqz Watery Diarrhea - In context of >6 months of intermittent, high volume, frequent stools - Not associated with meals, no hematochezia or black tarry stools - 2 weeks of worsening high-volume watery diarrhea with associated anorexia - ESR 47, CRP 3.25 on arrival; no leukocytosis; lytes largely stable in setting of profound ANDREA - CT-A/P: Evidence of kidney and pancreatic mass requiring further evaluation w/ contrast - Given length of time this has been ongoing, will likely need colonoscopy (last >10 years ago per patient) while here or as outpatient (can consider GI consult once studies return) - Biofire and C Diff negative --- Continue IV Hydration --- Patient tolerating PO intake well --- Continue to evaluate for functional vs. anatomic vs infectious origins --- Further evaluation of kidney and pancreatic masses warranted pending improvement of ANDREA ANDREA No reported history of prior CKD; however, per [facility] notes, 10/2021 labs with Cr 1.7 In the history of worsening watery diarrhea x2 weeks, suspect that ANDREA is secondary to intravascular depletion/dehydration with possible ATN component, likely compounded further by ongoing hydrochlorothiazide therapy No evidence of appreciable electrolyte derangement or findings that would necessitate dialysis at this time Trend labs, gentle electrolyte repletion as necessary - Urine studies including microscopy, sodium, creatinine --- Nephrology recommending strict I&O, IVF, and repeat metabolic profile in AM, suspected component of ATN and intravascular volume depletion --- Continue LR @ 125 cc/hr Paroxysmal AFib In sinus rhythm on arrival, rate controlled with metoprolol Hold warfarin in the setting of supratherapeutic INR INR goal: 2.53.0 Hyperlipidemia Continue statin Hypertension Hold hydrochlorothiazide in setting of profound ANDREA as above Pressures have been stable since arrival - Reduced metoprolol dose to 25 mg twice daily for now, increase back to home dose of 50 mg twice daily once acute needs have stabilized AoV Replacement - Stable. On Warfarin. --- Warfarin held at this time d/t INR MM s/p Stem Cell Transplant in 2013 - Follows with [facility] -- completed chemotherapy in 2016 - Stable and in-remission. Anion gap metabolic acidosis-- gap acidemia with AG 16 / HCO3 12 In the context of ongoing diarrhea and findings consistent with dehydration Likely more subacute at this point. Lactate 0.7 on admission but this was taken after several bags of fluid had been administered -- suspect this was a component prior, as is uremia. Continue fluid therapy as above, recheck in AM -- consider secondary work-up for AGMA if no improvement on serial labs over next several days Supratherapeutic INR - INR 8.5 on arrival - Hold home warfarin - INR 9.5 Mar 23, administered 5 mg of Vitamin K Oral --- Suspect largely d/t poor PO intake over past several weeks --- Administered 5 mg PO Vitamin K Elevated Lipase-at 3000 on admission - Clinically does not appear c/w pancreatitis. Likely contributory from renal insufficiency, ?possibly intestinal inflammation, acidemia - CT-A/P as above, ample hydration Code: Full Diet: regular Prophylaxis: Warfarin therapy, supratherapeutic INR, hold for now Dispo: [facility] Admission and Anticipated Discharge Date Admission Date: March 22, 2022 Kimberly Swenson is a 77 year old male with history of Multiple Myeloma (s/p Stem Cell Transplant), A Fib, mechanical aortic valve, HTN, dyslipidemia, and BPH. Who presented to the hospital with a 6 month history of worsening diarrhea. Patient was admitted to the hospital for acute kidney injury in association with anion gap metabolic acidosis. Pancreatic and renal masses were noted on non-contrast CT scan. Patient notes that his diarrhea has been worsening more notably over the last 6- 8 weeks, such that his physician recommended cutting out dairy, which provided no benefit. He notes that the last 2 weeks have been so significant that it has caused increasing fatigue, inability to get out of bed, hypotension, and low temperatures. Patient states that he has not had any associated abdominal pain or urinary changes. He has not had any increased or decreased thirst and he has continued to eat a regular diet. Despite lack of dietary changes, he notes that he has lost 10 lbs in the last month. Patient has had no hematochezia or hematemesis. Episodes of diarrhea are not in relation to eating. His last colonoscopy was > 12 years ago, he has never had an EGD. Patient notes that his father passed from an unknown metastatic cancer and his sister of breast cancer and that he has received chemotherapy and stem cell transplantation (2014) for multiple myeloma. Patient denies additional symptoms on top of his diarrhea and was resting comfortably in bed upon arrival after having eaten breakfast. He denies any ongoing chest pain, dyspnea, headaches, abdominal discomfort, or dysuria. Patient requests that we communicate his care with his An[place]ell. Review of Systems Review of Systems: As per HPI Physical Exam Physical Exam: Gen: NAD, alert, interactive, generally pale HEENT: Supple, no JVD, MMM Resp:Non-labored, no wheezing/rhonchi/rales, CTAB CV:RRR, normal S1/S2, no M/R/G, mitral click Abd: Soft, non-distended, no TTP, hyperactive bowels, no masses Extr: 2+ dp bilaterally, no edema Skin: No rashes lesions or erythema, no jaundice or scleral icterus Results & Data Results & Data ([facility]) Vital Signs (Past 12 Hours) Vital Signs Temp Pulse Pulse Pulse Pulse Resp BP 03/22/22 22:03 36.3 C L 68 16 03/22/22 21:58 36.5 C 81 18 03/22/22 19:40 92 H 18 03/22/22 19:30 70 17 03/22/22 19:30 127/63 03/22/22 19:20 73 18 03/22/22 19:10 69 19 03/22/22 19:00 69 17 03/22/22 19:00 119/58 L 03/22/22 19:15 82 20 BP Pulse Ox O2 Del Method 03/22/22 22:03 151/72 H 100 Room Air 03/22/22 21:58 144/73 H 100 Room Air 03/22/22 19:40 94 Room Air 03/22/22 19:30 100 03/22/22 19:30 03/22/22 19:20 100 03/22/22 19:10 100 03/22/22 19:00 100 03/22/22 19:00 03/22/22 19:15 119/58 L 100 Room Air Resident Activity Tracking Resident Involvement: Resident Care Provided Care Provided: Adult Hospital Medicine
[2022-03-23] MEDS: POTASSIUM CHLORIDE / WTR 10 MEQ/100 ML PLCT IV SCH ×4 (07:00→09:44)
[2022-03-23 07:02] LABS: Alanine Aminotransferase 12 U/L (7-52); Albumin Globulin Ratio 1.3 (0.9-2); Albumin Level 3.3 gm/dl (3.4-5.0); Alkaline Phosphatase 54 U/L (34-104); Anion Gap 15 (3-11); Aspartate Aminotransferase 16 U/L (13-39); BUN Creatinine Ratio 15.1 (10-20); Basophils # (auto) 0.03 K/uL (0-0.2); Basophils % (auto) 0.5 %; Bilirubin,Total 0.4 mg/dl (0.2-1.0); Blood Urea Nitrogen 113 mg/dl (6-23); Calcium 6.8 mg/dl (8.5-10.1); Carbon Dioxide 11 mmol/L (21-32); Chloride 114 mmol/L (98-107); Echinocytes 1+; Eosinophils # (auto) 0.12 K/uL (0-0.50); Eosinophils % (auto) 2.2 %; Est GFR (African American) 7.3 ml/min; Est GFR (Non-African American) 6.3 ml/min; Globulin 2.6 gm/dl (2.5-4.0); Glucose 139 mg/dl (70-99(Fasting)); Immature Granulocytes # (auto) 0.02 K/uL (0.01-0.20); Immature Granulocytes % (auto) 0.4 %; Lymphocytes # (auto) 0.83 K/uL (1.2-3.4); Lymphocytes % (auto) 15.1 %; Magnesium 1.6 mg/dl (1.7-2.4); Mean Corpuscular Hemoglobin 30.2 pg (25.0-34.0); Mean Corpuscular Volume 83.9 fL (80.0-100.0); Monocytes % (auto) 9.1 %; Neutrophils % (auto) 72.7 %; Phosphorus 7.3 mg/dl (2.5-4.9); Platelet Count 87 K/uL (130-400); Potassium 3.1 mmol/L (3.5-5.1); RDW Coefficient of Variation 13.6 % (11.5-14.5); Red Blood Count 2.98 M/uL (4.70-6.10); Sodium 140 mmol/L (136-145); Total Protein 5.9 gm/dl (6.0-8.3)
[2022-03-23 07:14] LABS: Prothrombin Time 89.3 Seconds (9.0-12.0)
[2022-03-23 07:21] LABS: INR 9.5 (0.9-1.1)
[2022-03-23] MEDS ORDERED: PHYTONADIONE 5 MG TAB PO STA (07:28)
[2022-03-23] MEDS: METOPROLOL TARTRATE 25 MG TAB PO SCH ×2 (07:46→20:26)
[2022-03-23] MEDS: SIMVASTATIN 20 MG TAB PO SCH (07:46)
[2022-03-23] MEDS: MAGNESIUM SULFATE / D5W 1 GM/100 ML BAG IV SCH ×2 (07:56→09:43)
--- NOTE | 2022-03-23 09:41 | Nephrology Consultation ---
Date of Consultation March 23, 2022 Assessment & Plan (1) Acute kidney injury: Prerenal with suspected component of ATN in the setting of intravascular volume depletion due to dehydration. Tolerating IVF replacement well. Non-oliguric. Electrolytes acceptable. No emergent indication for dialysis. Document strict I/O's. Repeat metabolic profile tomorrow AM. Medications appropriately dosed for kidney dysfunction. (2) Increased anion gap metabolic acidosis: Continue IVF. Combination of renal insufficiency and diarrhea. NaHCO3 replacement IV ordered. (3) Diarrhea: IV KCl 30 mEq and MgSO4 2 gram replacement ordered. Evaluation per hospitalist team. History of Present Illness Reason for Consultation: "ARF" Requesting Physician: Toñito Nguyen Attending Physician: Dylon Contreras DO History of Present Illness Mr. Messi khan is a 77 year-old male with a history of multiple myeloma treated with stem cell transplant in 2014, paroxysmal atrial fibrillation, mechanical aortic valve replacement, hypertension, dyslipidemia, and BPH. He presented to the ER at [facility] yesterday for evaluation of diarrhea and weakness. Messi reported several months of intermittent watery diarrhea and poor appetite. Over the past couple of weeks, diarrhea increased in volume and frequency. Symptoms were associated with increasing profound weakness that promoted him to come to the hospital for evaluation. Messi was admitted with non-oliguric ANDREA and volume depletion. IVF and electrolytes provided. Creatinine at baseline reported to be 1.3-1.7 mg/dL. Creatinine on presentation 8.5 mg/dL. Creatinine this AM 7.46 mg/dL. Laboratory studies notable for a sodium of 140 moml/L, potassium 3.1 mmol/L, HCO3 11 mmol/L. Serum albumin 3.3. PO4 7.3 and magnesium 1.6 mg/dL. CT demonstrates the kidneys to be unobstructed. Urine microscopy is acellular. HCTZ has been held. Allergies Allergy/AdvReac Type Severity Reaction Status Date / Time ASHLEY Inhibitors AdvReac Intermediate COUGH Verified 03/22/22 19:14 Home Medications Medication Instructions Recorded Confirmed Type simvastatin 20 mg tablet 20 mg PO DAILY #90 tabs 08/11/21 03/22/22 Rx metoprolol tartrate 50 mg tablet 50 mg PO BID #60 tabs 09/08/21 03/22/22 Rx hydrochlorothiazide 12.5 mg tablet 12.5 mg PO .COMPLEX #45 tabs 10/06/21 03/22/22 Rx warfarin 5 mg tablet 5 mg PO .COMPLEX #90 tabs 03/16/22 03/22/22 Rx Patient History Medical History Anemia Atrial fibrillation Dyslipidemia Elevated prostate specific antigen (PSA) Hypertension Multiple myeloma Surgical History H/O stem cell transplant S/P AVR (aortic valve replacement) Family History Mother Alzheimer disease Sister Breast cancer Father Myocardial infarction Denies family history of Ovarian cancer Prostate cancer Colorectal cancer Social History Smoking Status: Never smoker Hx Alcohol Use: No Hx Substance Use: No Preferred Language: Egyptian Communication Ability: Effective Flight Mechanic Required: No Beliefs That Will Affect Care: None marital status: Current Living Situation: Spouse current occupational status: employed 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 Feels Safe at Home: Yes Childhood Exposure to Second-Hand Smoke: No Dental Care, Regularly: Yes Physical Activity Frequency: 1-2 Times per Week Physical Activity Frequency Comment: walk Seatbelt Use: always Sunscreen Use: Yes Assistive Devices: None Review of Systems Review of Systems: All systems reviewed & are unremarkable except as noted in HPI & below Physical Exam Constitutional: well developed and + thin; no acute distress Eyes: + anicteric sclerae; no corneal abnormality ENMT: Mouth: + dry oral mucous membranes; no oral mucosal abnormality Neck: normal visual inspection and trachea midline Respiratory: normal respiratory effort Auscultation: lungs clear to auscultation bilaterally Cardiovascular: Rate/Rhythm: regular rate Heart Sounds: normal S1 and normal S2 Extremities: no edema Musculoskeletal: Extremities: no cyanosis and no clubbing Skin: + turgor decreased; no jaundice Neurologic: Motor/Sensory: no tremor and no asterixis Psychiatric: Orientation: alert and oriented x 3 Results & Data ([facility]) Vital Signs (Past 12 Hours) Vital Signs Temp Pulse Pulse Resp BP Pulse Ox O2 Del Method 03/23/22 07:21 36.6 C 73 16 107/54 L 99 Room Air 03/22/22 22:03 36.3 C L 68 16 151/72 H 100 Room Air 03/22/22 21:58 36.5 C 81 18 144/73 H 100 Room Air Laboratory Results Laboratory Results - last 24 hr 03/22/22 03/22/22 03/22/22 16:42 16:42 16:42 WBC 7.23 RBC 3.76 L Hgb 11.2 L Hct 32.2 L MCV 85.6 MCH 29.8 MCHC 34.8 RDW Std Deviation 42.7 RDW Coeff of Berto 13.7 Plt Count 118 L MPV 11.8 Immature Gran % (Auto) 0.3 Neut % (Auto) 77.7 Lymph % (Auto) 13.7 [place] % (Auto) 6.4 Eos % (Auto) 1.5 Baso % (Auto) 0.4 Neut # (Auto) 5.62 Lymph # (Auto) 0.99 L [place] # (Auto) 0.46 Eos # (Auto) 0.11 Baso # (Auto) 0.03 Immature Gran # (Auto) 0.02 Echinocytes ESR 47 H PT INR ABG pH VBG pH VBG pCO2 VBG pO2 VBG HCO3 VBG O2 Saturation VBG Base Excess Sodium 136 Potassium 3.6 Chloride 108 H Carbon Dioxide 12 L Anion Gap 16 H BUN 126 H Creatinine 8.50 H* Est Cr Clr Drug Dosing Not Reportable Est GFR ( Amer) 6.3 Est GFR (Non-Af Amer) 5.4 BUN/Creatinine Ratio 14.8 Glucose 165 H Lactate Calcium 7.1 L Phosphorus Magnesium 1.6 L Total Bilirubin 0.4 AST 22 ALT 14 Alkaline Phosphatase 76 Troponin I High Sens 18.0 C-Reactive Protein 3.25 H Total Protein 7.4 Albumin 4.4 Globulin 3.0 Albumin/Globulin Ratio 1.5 Lipase 2988 H CA 19-9 Antigen TSH Urine Color Urine Appearance Urine pH Ur Specific [place] Urine Protein Urine Glucose (UA) Urine Ketones Urine Blood Urine Nitrite Urine Bilirubin Urine Urobilinogen Ur Leukocyte Esterase Urine WBC (Auto) Urine RBC (Auto) U Hyaline Cast (Auto) U Epithel Cells (Auto) Urine Bacteria (Auto) Urine Yeast Ur Random Creatinine Ur Random Sodium Stl C. cayetanensis PCR Stool Rotavirus A PCR Stl Adenov F 40/41 PCR Stool Astrovirus (PCR) Stool Campylobacter PCR Stl C. diff Tox B Gene Stool Cryptosporidium PCR Stl E.coli Shiga Tox PCR Stl Enterotoxigenic E PCR Stool EPEC (PCR) Stool EAEC (PCR) Stl E. histolytica PCR Stool Giardia Lamblia PCR Stool Salmonella PCR Stool Sapovirus (PCR) Stl P. shigelloides PCR Stl Shigella/EIEC PCR St Y.enterocolitica PCR Stool Vibrio (PCR) Stl Vibrio cholerae PCR Stl Norovirus GI/GII PCR SARS-CoV-2, RNA, NAAT 03/22/22 03/22/22 03/22/22 16:42 16:42 18:35 WBC RBC Hgb Hct MCV MCH MCHC RDW Std Deviation RDW Coeff of Berto Plt Count MPV Immature Gran % (Auto) Neut % (Auto) Lymph % (Auto) [place] % (Auto) Eos % (Auto) Baso % (Auto) Neut # (Auto) Lymph # (Auto) [place] # (Auto) Eos # (Auto) Baso # (Auto) Immature Gran # (Auto) Echinocytes ESR PT 80.9 H INR 8.5 H* ABG pH VBG pH VBG pCO2 VBG pO2 VBG HCO3 VBG O2 Saturation VBG Base Excess Sodium Potassium Chloride Carbon Dioxide Anion Gap BUN Creatinine Est Cr Clr Drug Dosing Est GFR ( Amer) Est GFR (Non-Af Amer) BUN/Creatinine Ratio Glucose Lactate Calcium Phosphorus Magnesium Total Bilirubin AST ALT Alkaline Phosphatase Troponin I High Sens C-Reactive Protein Total Protein Albumin Globulin Albumin/Globulin Ratio Lipase CA 19-9 Antigen TSH 1.734 Urine Color Urine Appearance Urine pH Ur Specific [place] Urine Protein Urine Glucose (UA) Urine Ketones Urine Blood Urine Nitrite Urine Bilirubin Urine Urobilinogen Ur Leukocyte Esterase Urine WBC (Auto) Urine RBC (Auto) U Hyaline Cast (Auto) U Epithel Cells (Auto) Urine Bacteria (Auto) Urine Yeast Ur Random Creatinine Ur Random Sodium Stl C. cayetanensis PCR Stool Rotavirus A PCR Stl Adenov F 40/41 PCR Stool Astrovirus (PCR) Stool Campylobacter PCR Stl C. diff Tox B Gene Stool Cryptosporidium PCR Stl E.coli Shiga Tox PCR Stl Enterotoxigenic E PCR Stool EPEC (PCR) Stool EAEC (PCR) Stl E. histolytica PCR Stool Giardia Lamblia PCR Stool Salmonella PCR Stool Sapovirus (PCR) Stl P. shigelloides PCR Stl Shigella/EIEC PCR St Y.enterocolitica PCR Stool Vibrio (PCR) Stl Vibrio cholerae PCR Stl Norovirus GI/GII PCR SARS-CoV-2, RNA, NAAT NEGATIVE 03/22/22 03/22/22 03/22/22 19:22 20:50 20:50 WBC RBC Hgb Hct MCV MCH MCHC RDW Std Deviation RDW Coeff of Berto Plt Count MPV Immature Gran % (Auto) Neut % (Auto) Lymph % (Auto) [place] % (Auto) Eos % (Auto) Baso % (Auto) Neut # (Auto) Lymph # (Auto) [place] # (Auto) Eos # (Auto) Baso # (Auto) Immature Gran # (Auto) Echinocytes ESR PT INR ABG pH VBG pH VBG pCO2 VBG pO2 VBG HCO3 VBG O2 Saturation VBG Base Excess Sodium Potassium Chloride Carbon Dioxide Anion Gap BUN Creatinine Est Cr Clr Drug Dosing Est GFR ( Amer) Est GFR (Non-Af Amer) BUN/Creatinine Ratio Glucose Lactate 1.0 Calcium Phosphorus Magnesium Total Bilirubin AST ALT Alkaline Phosphatase Troponin I High Sens C-Reactive Protein Total Protein Albumin Globulin Albumin/Globulin Ratio Lipase CA 19-9 Antigen TSH Urine Color Yellow Urine Appearance Clear Urine pH 5.0 Ur Specific [place] 1.010 Urine Protein 1+ H Urine Glucose (UA) Negative Urine Ketones Negative Urine Blood Trace H Urine Nitrite Negative Urine Bilirubin Negative Urine Urobilinogen Negative Ur Leukocyte Esterase Negative Urine WBC (Auto) 1-5 Urine RBC (Auto) 0-4 U Hyaline Cast (Auto) 1-5 U Epithel Cells (Auto) 10-20 H Urine Bacteria (Auto) Negative Urine Yeast Not Reportable Ur Random Creatinine Ur Random Sodium 61 Stl C. cayetanensis PCR Stool Rotavirus A PCR Stl Adenov F 40/ PCR Stool Astrovirus (PCR) Stool Campylobacter PCR Stl C. diff Tox B Gene Stool Cryptosporidium PCR Stl E.coli Shiga Tox PCR Stl Enterotoxigenic E PCR Stool EPEC (PCR) Stool EAEC (PCR) Stl E. histolytica PCR Stool Giardia Lamblia PCR Stool Salmonella PCR Stool Sapovirus (PCR) Stl P. shigelloides PCR Stl Shigella/EIEC PCR St Y.enterocolitica PCR Stool Vibrio (PCR) Stl Vibrio cholerae PCR Stl Norovirus GI/GII PCR SARS-CoV-2, RNA, NAAT 03/22/22 03/22/22 03/22/22 20:50 21:02 21:02 WBC RBC Hgb Hct MCV MCH MCHC RDW Std Deviation RDW Coeff of Berto Plt Count MPV Immature Gran % (Auto) Neut % (Auto) Lymph % (Auto) [place] % (Auto) Eos % (Auto) Baso % (Auto) Neut # (Auto) Lymph # (Auto) [place] # (Auto) Eos # (Auto) Baso # (Auto) Immature Gran # (Auto) Echinocytes ESR PT INR ABG pH VBG pH 7.16 L VBG pCO2 30 L VBG pO2 34 VBG HCO3 11 VBG O2 Saturation < 60.0 VBG Base Excess -16.7 Sodium 139 Potassium 3.3 L Chloride 113 H Carbon Dioxide 10 L Anion Gap 16 H BUN 118 H Creatinine 7.89 H* D Est Cr Clr Drug Dosing Not Reportable Est GFR ( Amer) 6.8 Est GFR (Non-Af Amer) 5.9 BUN/Creatinine Ratio 15.0 Glucose 124 H Lactate Calcium 6.9 L Phosphorus Magnesium Total Bilirubin AST ALT Alkaline Phosphatase Troponin I High Sens C-Reactive Protein Total Protein Albumin Globulin Albumin/Globulin Ratio Lipase CA 19-9 Antigen TSH Urine Color Urine Appearance Urine pH Ur Specific [place] Urine Protein Urine Glucose (UA) Urine Ketones Urine Blood Urine Nitrite Urine Bilirubin Urine Urobilinogen Ur Leukocyte Esterase Urine WBC (Auto) Urine RBC (Auto) U Hyaline Cast (Auto) U Epithel Cells (Auto) Urine Bacteria (Auto) Urine Yeast Ur Random Creatinine 71.4 Ur Random Sodium Stl C. cayetanensis PCR Stool Rotavirus A PCR Stl Adenov F 40/41 PCR Stool Astrovirus (PCR) Stool Campylobacter PCR Stl C. diff Tox B Gene Stool Cryptosporidium PCR Stl E.coli Shiga Tox PCR Stl Enterotoxigenic E PCR Stool EPEC (PCR) Stool EAEC (PCR) Stl E. histolytica PCR Stool Giardia Lamblia PCR Stool Salmonella PCR Stool Sapovirus (PCR) Stl P. shigelloides PCR Stl Shigella/EIEC PCR St Y.enterocolitica PCR Stool Vibrio (PCR) Stl Vibrio cholerae PCR Stl Norovirus GI/GII PCR SARS-CoV-2, RNA, NAAT 03/23/22 03/23/22 03/23/22 00:24 00:24 06:17 WBC RBC Hgb Hct MCV MCH MCHC RDW Std Deviation RDW Coeff of Berto Plt Count MPV Immature Gran % (Auto) Neut % (Auto) Lymph % (Auto) [place] % (Auto) Eos % (Auto) Baso % (Auto) Neut # (Auto) Lymph # (Auto) [place] # (Auto) Eos # (Auto) Baso # (Auto) Immature Gran # (Auto) Echinocytes ESR PT 89.3 H INR 9.5 H* ABG pH VBG pH VBG pCO2 VBG pO2 VBG HCO3 VBG O2 Saturation VBG Base Excess Sodium Potassium Chloride Carbon Dioxide Anion Gap BUN Creatinine Est Cr Clr Drug Dosing Est GFR ( Amer) Est GFR (Non-Af Amer) BUN/Creatinine Ratio Glucose Lactate Calcium Phosphorus Magnesium Total Bilirubin AST ALT Alkaline Phosphatase Troponin I High Sens C-Reactive Protein Total Protein Albumin Globulin Albumin/Globulin Ratio Lipase CA 19-9 Antigen TSH Urine Color Urine Appearance Urine pH Ur Specific [place] Urine Protein Urine Glucose (UA) Urine Ketones Urine Blood Urine Nitrite Urine Bilirubin Urine Urobilinogen Ur Leukocyte Esterase Urine WBC (Auto) Urine RBC (Auto) U Hyaline Cast (Auto) U Epithel Cells (Auto) Urine Bacteria (Auto) Urine Yeast Ur Random Creatinine Ur Random Sodium Stl C. cayetanensis PCR Not Detected Stool Rotavirus A PCR Not Detected Stl Adenov F 40/41 PCR Not Detected Stool Astrovirus (PCR) Not Detected Stool Campylobacter PCR Not Detected Stl C. diff Tox B Gene Negative Cdiff Gene Stool Cryptosporidium PCR Not Detected Stl E.coli Shiga Tox PCR Not Detected Stl Enterotoxigenic E PCR Not Detected Stool EPEC (PCR) Not Detected Stool EAEC (PCR) Not Detected Stl E. histolytica PCR Not Detected Stool Giardia Lamblia PCR Not Detected Stool Salmonella PCR Not Detected Stool Sapovirus (PCR) Not Detected Stl P. shigelloides PCR Not Detected Stl Shigella/EIEC PCR Not Detected St Y.enterocolitica PCR Not Detected Stool Vibrio (PCR) Not Detected Stl Vibrio cholerae PCR Not Detected Stl Norovirus GI/GII PCR Not Detected SARS-CoV-2, RNA, NAAT 03/23/22 03/23/22 03/23/22 06:17 06:17 06:17 WBC 5.50 RBC 2.98 L Hgb 9.0 L Hct 25.0 L MCV 83.9 MCH 30.2 MCHC 36.0 RDW Std Deviation 42.0 RDW Coeff of Berto 13.6 Plt Count 87 L MPV 11.0 Immature Gran % (Auto) 0.4 Neut % (Auto) 72.7 Lymph % (Auto) 15.1 [place] % (Auto) 9.1 Eos % (Auto) 2.2 Baso % (Auto) 0.5 Neut # (Auto) 4.00 Lymph # (Auto) 0.83 L [place] # (Auto) 0.50 Eos # (Auto) 0.12 Baso # (Auto) 0.03 Immature Gran # (Auto) 0.02 Echinocytes 1+ ESR PT INR ABG pH 7.31 L VBG pH VBG pCO2 VBG pO2 VBG HCO3 VBG O2 Saturation VBG Base Excess Sodium 140 Potassium 3.1 L Chloride 114 H Carbon Dioxide 11 L Anion Gap 15 H BUN 113 H Creatinine 7.46 H* D Est Cr Clr Drug Dosing Not Reportable Est GFR ( Amer) 7.3 Est GFR (Non-Af Amer) 6.3 BUN/Creatinine Ratio 15.1 Glucose 139 H Lactate Calcium 6.8 L Phosphorus 7.3 H Magnesium 1.6 L Total Bilirubin 0.4 AST 16 ALT 12 Alkaline Phosphatase 54 Troponin I High Sens C-Reactive Protein Total Protein 5.9 L D Albumin 3.3 L Globulin 2.6 Albumin/Globulin Ratio 1.3 Lipase CA 19-9 Antigen TSH Urine Color Urine Appearance Urine pH Ur Specific [place] Urine Protein Urine Glucose (UA) Urine Ketones Urine Blood Urine Nitrite Urine Bilirubin Urine Urobilinogen Ur Leukocyte Esterase Urine WBC (Auto) Urine RBC (Auto) U Hyaline Cast (Auto) U Epithel Cells (Auto) Urine Bacteria (Auto) Urine Yeast Ur Random Creatinine Ur Random Sodium Stl C. cayetanensis PCR Stool Rotavirus A PCR Stl Adenov F PCR Stool Astrovirus (PCR) Stool Campylobacter PCR Stl C. diff Tox B Gene Stool Cryptosporidium PCR Stl E.coli Shiga Tox PCR Stl Enterotoxigenic E PCR Stool EPEC (PCR) Stool EAEC (PCR) Stl E. histolytica PCR Stool Giardia Lamblia PCR Stool Salmonella PCR Stool Sapovirus (PCR) Stl P. shigelloides PCR Stl Shigella/EIEC PCR St Y.enterocolitica PCR Stool Vibrio (PCR) Stl Vibrio cholerae PCR Stl Norovirus GI/GII PCR SARS-CoV-2, RNA, NAAT 03/23/22 06:17 WBC RBC Hgb Hct MCV MCH MCHC RDW Std Deviation RDW Coeff of Berto Plt Count MPV Immature Gran % (Auto) Neut % (Auto) Lymph % (Auto) [place] % (Auto) Eos % (Auto) Baso % (Auto) Neut # (Auto) Lymph # (Auto) [place] # (Auto) Eos # (Auto) Baso # (Auto) Immature Gran # (Auto) Echinocytes ESR PT INR ABG pH VBG pH VBG pCO2 VBG pO2 VBG HCO3 VBG O2 Saturation VBG Base Excess Sodium Potassium Chloride Carbon Dioxide Anion Gap BUN Creatinine Est Cr Clr Drug Dosing Est GFR ( Amer) Est GFR (Non-Af Amer) BUN/Creatinine Ratio Glucose Lactate Calcium Phosphorus Magnesium Total Bilirubin AST ALT Alkaline Phosphatase Troponin I High Sens C-Reactive Protein Total Protein Albumin Globulin Albumin/Globulin Ratio Lipase CA 19-9 Antigen Pending TSH Urine Color Urine Appearance Urine pH Ur Specific [place] Urine Protein Urine Glucose (UA) Urine Ketones Urine Blood Urine Nitrite Urine Bilirubin Urine Urobilinogen Ur Leukocyte Esterase Urine WBC (Auto) Urine RBC (Auto) U Hyaline Cast (Auto) U Epithel Cells (Auto) Urine Bacteria (Auto) Urine Yeast Ur Random Creatinine Ur Random Sodium Stl C. cayetanensis PCR Stool Rotavirus A PCR Stl Adenov F 40/41 PCR Stool Astrovirus (PCR) Stool Campylobacter PCR Stl C. diff Tox B Gene Stool Cryptosporidium PCR Stl E.coli Shiga Tox PCR Stl Enterotoxigenic E PCR Stool EPEC (PCR) Stool EAEC (PCR) Stl E. histolytica PCR Stool Giardia Lamblia PCR Stool Salmonella PCR Stool Sapovirus (PCR) Stl P. shigelloides PCR Stl Shigella/EIEC PCR St Y.enterocolitica PCR Stool Vibrio (PCR) Stl Vibrio cholerae PCR Stl Norovirus GI/GII PCR SARS-CoV-2, RNA, NAAT Diagnostic Findings CT SCAN OF THE ABDOMEN AND PELVIS WITHOUT IV CONTRAST: Lung bases: The heart is enlarged and without pericardial effusion. There is bibasilar scarring/atelectasis. Traction bronchiectasis is seen at both lung bases. Visualized upper septal thickening indicates fluid overload/congestive failure. No airspace consolidation or pleural effusion is identified. There is a small hiatal hernia. Liver: The unenhanced liver is normal in size, contour, and attenuation. There is no intrahepatic biliary ductal dilatation. Gallbladder: There are calcified gallstones without CT evidence of acute cholecystitis. Spleen: Normal in size and attenuation. Pancreas: Question a 1.8 cm low-attenuation lesion within the uncinate process of the pancreas. The unenhanced pancreas is otherwise grossly unremarkable but not well evaluated without IV contrast. Adrenal glands: Unremarkable. Kidneys: The unenhanced kidneys are normal in size and without hydronephrosis. There are no renal calculi identified. Simple and complex/hyperdense renal cyst measure up to 2.9 cm. A 1.2 cm lesion arising from the right lower pole on image #168 distended criteria for a cyst. Abdominal vasculature: The abdominal aorta is normal in course and caliber noting advanced atherosclerotic calcification. Bowel: There is no bowel obstruction. There are fluid-filled loops of small bowel. The appendix is well-visualized and normal. Peritoneum: There is no intraperitoneal free air or abdominal ascites. There is a fat-containing umbilical hernia. Lymphadenopathy: None. Pelvic viscera: The bladder is significantly distended but otherwise normal appearance. The prostate gland is enlarged and heterogeneous. Skeletal structures: The skeletal structures are osteopenic. The skeletal stru ctures are heterogeneously osteopenic. There is mild lumbosacral spondylosis. There is a chronic superior endplate compression deformity of T12. No lytic or blastic lesions are seen. IMPRESSION: 1. There are nonspecific fluid-filled loops of small bowel. No bowel wall thickening or inflammation is seen. Correlate clinically for evidence of a nonspecific enteritis. 2. There is no bowel obstruction. 3. Question a 1.8 cm low-attenuation lesion within the uncinate process of the pancreas. This is not well assessed without IV contrast and may be artifactual. Correlation with a contrast enhanced pancreas protocol CT scan is recommended for further assessment and to exclude underlying pancreatic lesion. 4. There is a 12 mm indeterminant lesion arising from the right kidney. This can also be further assessed on the contrast-enhanced CT scan. 5. Cholelithiasis. 6. Cardiomegaly. 7. Bladder distention. PG Care Time/CCT Total # of Minutes Spent Total Time Spent with Patient: Total time spent is greater than 50% in coordination of care (as documented) at patient's floor/unit and/or counseling patient: Coding Level of Care Code INP/OBS CONSULT LVL 4, 60 MIN Diagnoses Acute kidney injury N17.9 Increased anion gap metabolic acidosis E87.29 Diarrhea R19.7
--- NOTE | 2022-03-23 15:18 | Electrocardiogram Report ---
Test Reason : Blood Pressure : / mmHG Vent. Rate : 067 BPM Atrial Rate : 067 BPM P-R Int : 152 ms QRS Dur : 106 ms QT Int : 470 ms P-R-T Axes : -23 -31 046 degrees QTc Int : 496 ms Poor data quality, interpretation may be adversely affected Sinus rhythm with Premature atrial complexes Left axis deviation Incomplete left bundle block Nonspecific ST and T wave abnormality Abnormal ECG No previous ECGs available Confirmed by Doug Butler ([id number]) on 03/23/2022 3:18:37 PM Referred By: Doug Franklin Confirmed By:Doug Butler
[2022-03-23] MEDS: PANCREAZE (LIPASE 10,500U) CAP PO SCH (16:57)
--- NOTE | 2022-03-23 18:43 | Billing Data ---
Date of Service March 23, 2022 Coding Level of Care Code 37823 SUB INP/OBS CARE
--- NOTE | 2022-03-23 18:44 | Billing Data ---
Date of Service March 23, 2022 Coding Level of Care Code 18732 SUB INP/OBS CARE
[2022-03-23 20:15] LABS: Albumin Level 3.6 gm/dl (3.4-5.0); BUN Creatinine Ratio 14.9 (10-20); Calcium 7.1 mg/dl (8.5-10.1); Creatinine Clr Calc Pharmacy 8.3 ml/min; Est GFR (African American) 7.4 ml/min; Est GFR (Non-African American) 6.4 ml/min; Phosphorus 5.1 mg/dl (2.5-4.9); Potassium 2.8 mmol/L (3.5-5.1)
[2022-03-24] MEDS: ACETAMINOPHEN 325 MG TAB PO PRN ×2 (01:27→05:53)
[2022-03-24] MEDS: SODIUM BICARBONATE 8.4% 150 MEQ in DEXTROSE 5% 1,000 ML IV SCH (02:32)
[2022-03-24 07:03] LABS: Hematocrit (blood only) 22.5 % (42.0-52.0); Hemoglobin 8.4 g/dl (14.0-18.0); Mean Corpuscular Hemoglobin 30.3 pg (25.0-34.0); Mean Corpuscular Hgb Conc 37.3 g/dL (32.0-36.0); Mean Corpuscular Volume 81.2 fL (80.0-100.0); Mean Platelet Volume 11.6 fL (9.4-12.4); Platelet Count 86 K/uL (130-400); RDW Coefficient of Variation 13.3 % (11.5-14.5); RDW Standard Deviation 39.5 fL (36.4-46.3); Red Blood Count 2.77 M/uL (4.70-6.10); White Blood Count 6.08 K/ul (4.8-10.8)
[2022-03-24 07:17] LABS: INR 2.1 (0.9-1.1); Prothrombin Time 21.6 Seconds (9.0-12.0)
[2022-03-24 07:35] LABS: Albumin Globulin Ratio 1.3 (0.9-2); Albumin Level 3.3 gm/dl (3.4-5.0); BUN Creatinine Ratio 14.3 (10-20); Bilirubin,Total 0.8 mg/dl (0.2-1.0); Calcium 6.9 mg/dl (8.5-10.1); Creatinine Clr Calc Pharmacy 8.4 ml/min; Est GFR (African American) 7.5 ml/min; Est GFR (Non-African American) 6.5 ml/min; Globulin 2.5 gm/dl (2.5-4.0); Phosphorus 4.8 mg/dl (2.5-4.9); Potassium 2.5 mmol/L (3.5-5.1); Total Protein 5.8 gm/dl (6.0-8.3)
[2022-03-24] MEDS: METOPROLOL TARTRATE 25 MG TAB PO SCH ×2 (07:35→20:11)
[2022-03-24] MEDS: PANCREAZE (LIPASE 10,500U) CAP PO SCH ×3 (07:35→16:39)
[2022-03-24] MEDS: SIMVASTATIN 20 MG TAB PO SCH (07:35)
[2022-03-24] MEDS: LACTATED RINGER'S 1,000 ML IV SCH ×2 (08:19→16:05)
[2022-03-24] MEDS: POTASSIUM CHLORIDE / WTR 10 MEQ/100 ML PLCT IV SCH ×8 (08:20→19:57)
[2022-03-24] MEDS ORDERED: POTASSIUM CHLORIDE CRTAB 20 MEQ TABCR PO STA (09:09)
--- NOTE | 2022-03-24 09:14 | Hospitalist Progress Note ---
Date of Service March 24, 2022 Assessment & Plan (1) Diarrhea: (2) Acute kidney injury: (3) Atrial fibrillation: (4) Dyslipidemia: (5) Hypertension: (6) S/P AVR (aortic valve replacement): (7) H/O stem cell transplant: (8) Increased anion gap metabolic acidosis: (9) Supratherapeutic INR: (10) Elevated lipase: (11) Knee pain: Plan Messi is a 77 year old male with history of Multiple Myeloma (s/p Stem Cell Transplant), A Fib, mechanical aortic valve, HTN, dyslipidemia, and BPH. Who presented to the hospital with a 6 month history of worsening diarrhea. Patient was admitted to the hospital for acute kidney injury in association with anion gap metabolic acidosis. Pancreatic and renal masses were noted on non-contrast CT scan. [id number] Watery Diarrhea - In context of >6 months of intermittent, non voluminous watery diarrhea - 2 weeks of worsening high-volume watery diarrhea with associated anorexia - ESR 47, CRP 3.25 on arrival; no leukocytosis; lytes largely stable in setting of profound ANDREA - CT-A/P: Evidence of kidney and pancreatic mass requiring further evaluation w/ contrast - Ample hydration will be provided as outlined below, continue Pancreatic Enzymes after meals - Given length of time this has been ongoing, will likely need colonoscopy (last >10 years ago per patient) while here or as outpatient (can consider GI consult once studies return) - Biofire and C Diff negative, symptoms not improved on pancreatic enzymes and unrelated to food, less likely malabsorption - Ordered: Stool calproectin, Fecal Fat, FOBT, Gastrin, IgG, A, and M, Tissue transglutaminase, 24 Urinary 5-HIAA, VIP level ANDREA No reported history of prior CKD; however, per [facility] notes, 10/2021 labs with Cr 1.7 In the history of worsening watery diarrhea x2 weeks, suspect that ANDREA is secondary to intravascular depletion/dehydration with possible ATN component, likely compounded further by ongoing hydrochlorothiazide therapy No evidence of appreciable electrolyte derangement or findings that would necessitate dialysis at this time Trend labs, gentle electrolyte repletion as necessary --- Continue LR @ 125 cc/hr Paroxysmal AFib In sinus rhythm on arrival, rate controlled with metoprolol Hold warfarin in the setting of supratherapeutic INR INR goal: 2.53.0 Hyperlipidemia Continue statin Hypertension Hold hydrochlorothiazide in setting of profound ANDREA as above Pressures have been stable since arrival; will reduce metoprolol dose to 25 mg twice daily for now, increase back to home dose of 50 mg twice daily once acute needs have stabilized AoV Replacement - Stable. On Warfarin. MM s/p Stem Cell Transplant in 2013 - Follows with [facility] -- completed chemotherapy in 2016 - Stable and in-remission. Anion gap metabolic acidosis-- gap acidemia with AG 16 / HCO3 12 In the context of ongoing diarrhea and findings consistent with dehydration Likely more subacute at this point. Lactate 0.7 on admission but this was taken after several bags of fluid had been administered -- suspect this was a component prior, as is uremia. Continue fluid therapy as above, recheck in AM -- consider secondary work-up for AGMA if no improvement on serial labs over next several days Supratherapeutic INR - INR 8.5 on arrival - Suspect largely d/t poor PO intake over past several weeks - Hold home warfarin - INR 9.5 Mar 23, administered 5 mg of Vitamin K Oral - Mar 24, INR 2.1, Warfarin 5mg Elevated Lipase-at 3000 on admission - Clinically does not appear c/w pancreatitis. Likely contributory from renal insufficiency, ?possibly intestinal inflammation, acidemia - CT-A/P as above, ample hydration Knee pain ddx - patellar tenosynovitis eDandre Code: Full Diet: regular Prophylaxis: Warfarin therapy, supratherapeutic INR, hold for now Dispo: MS Admission and Anticipated Discharge Date Admission Date: March 22, 2022 Supervising Physician Co-Signing Physician Notes I personally examined the patient and verified all taylor points of history and exam, discussed case, and agree with decision making with Garry Borrero MS4 and Dr Lao Has had some large-volume diarrhea again today. No abdominal pain or nausea, but having hard time eating just from poor appetite. Vitals noted, in general he is awake and alert pleasant no distress. HEENT normocephalic atraumatic mucous membranes moist. Breathing unlabored no accessory muscle use good effort. Skin shows no rashes no pallor or icterus. Acute renal failure in the context of acute on what sounds to be chronic diarrheathe most obvious course of events would be diarrhea leading to dehydration leading to ATN. At the same time, his diarrhea history does not make this a completely obvious answer. Continue to follow for any other diagnostic clues. As far as the root cause of his diarrheaalso not entirely clear. Does not sound to be infectious or inflammatory, no postprandial component to make it easy to define as a malabsorption. Continue to follow closely. Broad work-up underway. No need for urgent dialysis. Appreciate GI and nephrology input. Risk overall high given his severe acute renal failure, and diarrhea that persists with large volume of fairly elusive etiology. otherwise as above Subjective Messi is a 77 year old male with history of Multiple Myeloma (s/p Stem Cell Transplant), A Fib, mechanical aortic valve, HTN, dyslipidemia, and BPH. Who presented to the hospital with a 6 month history of worsening diarrhea. Patient was admitted to the hospital for acute kidney injury in association with anion gap metabolic acidosis. Pancreatic and renal masses were noted on non-contrast CT scan. Patient notes that he has had 2-3 loose stools for most of his life, but his diarrhea has been worsening more notably over the last 6-8 weeks, such that his physician recommended cutting out dairy, which provided no benefit. He notes that the last 2 weeks have been so significant that it has caused increasing fatigue, inability to get out of bed, hypotension, and low temperatures. Patient states that he has not had any associated abdominal pain or urinary changes. He has not had any increased or decreased thirst and he has continued to eat a regular diet. Despite lack of dietary changes, he notes that he has lost 10 lbs in the last month. He drinks 1 cup of water and 1 cup of coffee a day, but has had poor PO intake over the past 2 weeks. Patient has had no hematochezia or hematemesis. Episodes of diarrhea are not in relation to eating. His last colonoscopy was > 12 years ago, he has never had an EGD. Patient notes that his father passed from an unknown metastatic cancer and his sister of breast cancer and that he has received chemotherapy and stem cell transplantation (2014) for multiple myeloma. He had two episodes of diarrhea yesterday evening following dinner and pancreatic enzymes. He also had one episode of diarrhea this morning. He also desai s knee pain today. He notes his knee began bothering him about 2-2.5 weeks ago due to laying with it twisted in bed for a prolonged period of time. The pain is constant, but worse when putting weight on it and getting in and out of bed. He took Tylenol last night which provided significant relief. Review of Systems Review of Systems: See HPI Physical Exam Constitutional: well developed and + thin; no acute distress Eyes: + anicteric sclerae; no corneal abnormality ENMT: Mouth: + dry oral mucous membranes; no oral mucosal abnormality Neck: normal visual inspection and trachea midline Respiratory: normal respiratory effort Auscultation: lungs clear to auscultation bilaterally Cardiovascular: Rate/Rhythm: regular rate Heart Sounds: normal S1 and normal S2 Extremities: no edema Click noted Musculoskeletal: Extremities: no cyanosis (Small effusion of the left anterior knee, tender to palpation superior) and no clubbing Skin: + turgor decreased; no jaundice Neurologic: Motor/Sensory: no tremor and no asterixis Psychiatric: Orientation: alert and oriented x 3 Results & Data Results & Data ([facility]) Vital Signs (Past 12 Hours) Vital Signs Temp Pulse Resp BP Pulse Ox O2 Del Method 03/24/22 07:43 36.6 C 77 17 126/59 L 96 Room Air
[2022-03-24] MEDS ORDERED: WARFARIN SOD 5 MG TAB PO ONE (09:15)
[2022-03-24 09:23] LABS: C Reactive Protein 4.66 mg/dl (0-0.5); Magnesium 1.7 mg/dl (1.7-2.4)
[2022-03-24 10:04] LABS: Cortisol AM 18.06 mcg/dl (6.2-22.6)
[2022-03-24] MEDS ORDERED: STAT IV STA (10:05)
[2022-03-24] MEDS ORDERED: CALCIUM GLUCONATE 10% 1,000 MG in DEXTROSE 5% 50 ML IV ONE (10:30)
[2022-03-24] MEDS ORDERED: ERGOCALCIFEROL 50,000 UNITS 1250 MCG CAP PO STA (10:32)
--- NOTE | 2022-03-24 10:46 | Nephrology Progress Note ---
Date of Service March 24, 2022 Assessment & Plan (1) Acute kidney injury: Plan: Prerenal with suspected component of ATN in the setting of intravascular volume depletion due to dehydration. Tolerating IVF replacement well. Non-oliguric. Electrolytes notable for hypokalemia. No emergent indication for dialysis. sPTH and anemia concerning for more advanced CKD. Messi and I discussed this briefly this AM. No additional evaluation at this time. Will monitor. Document strict I/O's. Repeat metabolic profile this afternoon. Medications appropriately dosed for kidney dysfunction. (2) Increased anion gap metabolic acidosis: Plan: Continue IVF. Combination of renal insufficiency and diarrhea. NaHCO3 replacement PO ordered. (3) Secondary hyperparathyroidism: Plan: With 25OH D insufficiency. Start ergocalciferol 56703 units weekly today. Calcitriol 0.25 mcg QMWF. (4) Anemia: Plan: Tsat 33. No signs of bleeding. (5) Hypokalemia: Plan: GI losses. Metabolic acidosis improving. Additional IV replacement ordered. Monitor magnesium daily. (6) Diarrhea: Plan: Evaluation per hospitalist team. Admission and Anticipated Discharge Date Admission Date: March 22, 2022 Subjective No acute events overnight. Messi reports persistent watery diarrhea. 3 bowel movements this AM. Did not sleep well last night. Increased anxiety. Appetite remains poor. No nausea or vomiting. Denies abdominal pain. No chest pain or palpitations. Weakness persists. Dry mouth. Review of Systems Review of Systems: All systems reviewed & are unremarkable except as noted in HPI & below Physical Exam Constitutional: well developed and + thin; no acute distress Eyes: + anicteric sclerae; no corneal abnormality ENMT: Mouth: + dry oral mucous membranes; no oral mucosal abnormality Neck: normal visual inspection and trachea midline Respiratory: normal respiratory effort Auscultation: lungs clear to auscultation bilaterally Cardiovascular: Rate/Rhythm: regular rate Heart Sounds: normal S1, normal S2 and + murmur Extremities: no edema Musculoskeletal: Extremities: no cyanosis and no clubbing Skin: + turgor decreased; no jaundice Neurologic: Motor/Sensory: no tremor and no asterixis Psychiatric: Orientation: alert and oriented x 3 Results & Data ([facility]) Vital Signs (Past 12 Hours) Vital Signs Temp Pulse Resp BP Pulse Ox O2 Del Method 03/24/22 07:43 36.6 C 77 17 126/59 L 96 Room Air Laboratory Results Laboratory Results - last 24 hr 03/23/22 03/23/22 03/24/22 06:17 18:53 06:26 WBC RBC Hgb Hct MCV MCH MCHC RDW Std Deviation RDW Coeff of Berto Plt Count MPV PT 21.6 H INR 2.1 H ABG pH Sodium 139 Potassium 2.8 L Chloride 108 H Carbon Dioxide 16 L Anion Gap 15 H BUN 110 H Creatinine 7.36 H* Est Cr Clr Drug Dosing 8.3 Est GFR ( Amer) 7.4 Est GFR (Non-Af Amer) 6.4 BUN/Creatinine Ratio 14.9 Glucose 193 H Calcium 7.1 L Ionized Calcium Phosphorus 5.1 H Magnesium Iron TIBC Unsaturated IBC Transferrin % Sat Ferritin Total Bilirubin AST ALT Alkaline Phosphatase C-Reactive Protein Total Protein Albumin 3.6 Globulin Albumin/Globulin Ratio CA 19-9 Antigen 62 H 25-OH Vitamin D Total PTH Intact Cortisol AM Sample 03/24/22 03/24/22 03/24/22 06:26 06:26 06:26 WBC 6.08 RBC 2.77 L Hgb 8.4 L Hct 22.5 L MCV 81.2 MCH 30.3 MCHC 37.3 H RDW Std Deviation 39.5 RDW Coeff of Berto 13.3 Plt Count 86 L MPV 11.6 PT INR ABG pH 7.49 H Sodium 141 Potassium 2.5 L* Chloride 104 Carbon Dioxide 21 Anion Gap 16 H BUN 104 H Creatinine 7.29 H* Est Cr Clr Drug Dosing 8.4 Est GFR ( Amer) 7.5 Est GFR (Non-Af Amer) 6.5 BUN/Creatinine Ratio 14.3 Glucose 165 H Calcium 6.9 L Ionized Calcium Phosphorus 4.8 Magnesium 1.7 Iron TIBC Unsaturated IBC Transferrin % Sat Ferritin Total Bilirubin 0.8 AST 16 ALT 10 Alkaline Phosphatase 57 C-Reactive Protein 4.66 H Total Protein 5.8 L Albumin 3.3 L Globulin 2.5 Albumin/Globulin Ratio 1.3 CA 19-9 Antigen 25-OH Vitamin D Total PTH Intact Cortisol AM Sample 03/24/22 03/24/22 03/24/22 09:10 09:10 09:10 WBC RBC Hgb Hct MCV MCH MCHC RDW Std Deviation RDW Coeff of Berto Plt Count MPV PT INR ABG pH Sodium Potassium Chloride Carbon Dioxide Anion Gap BUN Creatinine Est Cr Clr Drug Dosing Est GFR ( Amer) Est GFR (Non-Af Amer) BUN/Creatinine Ratio Glucose Calcium Ionized Calcium 0.80 L Phosphorus Magnesium Cancelled Iron 60 TIBC 181 L Unsaturated IBC 121 L Transferrin % Sat 33 Ferritin Pending Total Bilirubin AST ALT Alkaline Phosphatase C-Reactive Protein Cancelled Total Protein Albumin Globulin Albumin/Globulin Ratio CA 19-9 Antigen 25-OH Vitamin D Total 10.0 L PTH Intact Cortisol AM Sample 18.06 03/24/22 03/24/22 09:10 09:10 WBC RBC Hgb Hct MCV MCH MCHC RDW Std Deviation RDW Coeff of Berto Plt Count MPV PT INR ABG pH Sodium Potassium Chloride Carbon Dioxide Anion Gap BUN Creatinine Est Cr Clr Drug Dosing Est GFR ( Amer) Est GFR (Non-Af Amer) BUN/Creatinine Ratio Glucose Calcium Ionized Calcium Phosphorus Magnesium Iron TIBC Unsaturated IBC Transferrin % Sat Ferritin Cancelled Total Bilirubin AST ALT Alkaline Phosphatase C-Reactive Protein Total Protein Albumin Globulin Albumin/Globulin Ratio CA 19-9 Antigen 25-OH Vitamin D Total PTH Intact 894.6 H Cortisol AM Sample PG Care Time/CCT Total # of Minutes Spent Total Time Spent with Patient: Total time spent is greater than 50% in coordination of care (as documented) at patient's floor/unit and/or counseling patient: Coding Level of Care Code 77884 SUB INP/OBS CARE 3/50MIN Diagnoses Acute kidney injury N17.9 Increased anion gap metabolic acidosis E87.29 Secondary hyperparathyroidism N25.81 Anemia D64.9 Hypokalemia E87.6 Diarrhea R19.7
[2022-03-24] MEDS ORDERED: ERGOCALCIFEROL 50,000 UNITS 1250 MCG CAP PO ONE (11:00)
[2022-03-24] MEDS: SODIUM BICARBONATE 650 MG TAB PO SCH ×3 (11:17→20:19)
[2022-03-24] MEDS: CALCITRIOL 0.25 MCG CAPSULE PO SCH (11:17)
--- NOTE | 2022-03-24 12:08 | Gastrointestinal Consultation ---
Date of Consultation March 24, 2022 Assessment & Plan (1) Diarrhea: 1. Await Celiac panel, fecal elastase and calprotectin. 2. Continue digestive enzymes prior to meals as prescribed. 3. Replete lytes. 4. Consider adding Imodium. 5. Outpatient colonoscopy to be scheduled. (2) Pancreatic lesion: 1. Recommend outpt follow up with pancreatic MRI +/-EUS. Plan Thank you for allowing us to participate in the care of this patient. If you have any questions or concerns, please do not hesitate to contact us. History of Present Illness Reason for Consultation: Acute on chronic diarrhea Requesting Physician: Dr. Nguyen Attending Physician: Dylon Contreras DO History of Present Illness Patient is a very pleasant 77 y.o. male with a history of atrial fibrillation, multiple myeloma, AVR, stem cell transplant, and ANDREA being evaluated for diarrhea which he reports began approximately 4 weeks ago. At the onset, he was having 6-7 bms per day, at times nocturnal, with urgency. No FI. There was associated mild lower abdominal cramping which was alleviated by the bm. No fevers or chills, melena, or hematochezia. +weight loss. No new medications or diet change. No family history of IBS or IBD. Last colonoscopy was performed by Dr. Colindres in 2009. Has a history of polyps and acute pancreatitis. Pancreatic lesion noted on CT measuring 1.8 cm. Stool Biofire was negative. Fecal fat, fecal calprotectin, Celiac panel have been ordered and are pending. Has been started on digestive enzymes. Allergies Allergy/AdvReac Type Severity Reaction Status Date / Time ASHLEY Inhibitors AdvReac Intermediate COUGH Verified 03/22/22 19:14 Home Medications Medication Instructions Recorded Confirmed Type simvastatin 20 mg tablet 20 mg PO DAILY #90 tabs 08/11/21 03/22/22 Rx metoprolol tartrate 50 mg tablet 50 mg PO BID #60 tabs 09/08/21 03/22/22 Rx hydrochlorothiazide 12.5 mg tablet 12.5 mg PO .COMPLEX #45 tabs 10/06/21 03/22/22 Rx warfarin 5 mg tablet 5 mg PO .COMPLEX #90 tabs 03/16/22 03/22/22 Rx Patient History Medical History Anemia Atrial fibrillation Dyslipidemia Elevated prostate specific antigen (PSA) Hypertension Multiple myeloma Surgical History H/O stem cell transplant S/P AVR (aortic valve replacement) Family History Mother Alzheimer disease Sister Breast cancer Father Myocardial infarction Denies family history of Ovarian cancer Prostate cancer Colorectal cancer Social History Smoking Status: Never smoker Hx Alcohol Use: No Hx Substance Use: No Preferred Language: [place] Communication Ability: Effective Telecommunicator Required: No Beliefs That Will Affect Care: None marital status: Current Living Situation: Spouse current occupational status: employed 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 Feels Safe at Home: Yes Childhood Exposure to Second-Hand Smoke: No Dental Care, Regularly: Yes Physical Activity Frequency: 1-2 Times per Week Physical Activity Frequency Comment: walk Seatbelt Use: always Sunscreen Use: Yes Assistive Devices: None Review of Systems Constitutional: as per Subjective / HPI Respiratory: no problem reported Cardiovascular: no problem reported Gastrointestinal: as per Subjective / HPI Musculoskeletal: + swelling (left knee) Physical Exam Constitutional: WD/WN, vitals as above Respiratory: normal respiratory effort, lungs clear to auscultation Cardiovascular: Rate/Rhythm: regular rate and regular rhythm Gastrointestinal (Abdomen): normal bowel sounds, soft, nontender, no hepatosplenomegaly Psychiatric: A+Ox3, euthymic affect Results & Data ([facility]) Vital Signs (Past 12 Hours) Vital Signs Temp Pulse Resp BP Pulse Ox O2 Del Method 03/24/22 07:43 36.6 C 77 17 126/59 L 96 Room Air Diagnostic Findings Laboratory Results WBC 6.08 K/ul (4.8-10.8) 03/24/22 06:26 RBC 2.77 M/uL (4.70-6.10) L 03/24/22 06:26 Hgb 8.4 g/dl (14.0-18.0) L 03/24/22 06:26 Hct 22.5 % (42.0-52.0) L 03/24/22 06:26 MCV 81.2 fL (80.0-100.0) 03/24/22 06:26 MCH 30.3 pg (25.0-34.0) 03/24/22 06:26 MCHC 37.3 g/dL (32.0-36.0) H 03/24/22 06:26 RDW Std Deviation 39.5 fL (36.4-46.3) 03/24/22 06:26 RDW Coeff of Berto 13.3 % (11.5-14.5) 03/24/22 06:26 Plt Count 86 K/uL (130-400) L 03/24/22 06:26 MPV 11.6 fL (9.4-12.4) 03/24/22 06:26 Immature Gran % (Auto) 0.4 % 03/23/22 06:17 Neut % (Auto) 72.7 % 03/23/22 06:17 Lymph % (Auto) 15.1 % 03/23/22 06:17 [place] % (Auto) 9.1 % 03/23/22 06:17 Eos % (Auto) 2.2 % 03/23/22 06:17 Baso % (Auto) 0.5 % 03/23/22 06:17 Neut # (Auto) 4.00 K/uL (1.40-6.50) 03/23/22 06:17 Lymph # (Auto) 0.83 K/uL (1.2-3.4) L 03/23/22 06:17 [place] # (Auto) 0.50 K/uL (0.11-0.59) 03/23/22 06:17 Eos # (Auto) 0.12 K/uL (0-0.50) 03/23/22 06:17 Baso # (Auto) 0.03 K/uL (0-0.2) 03/23/22 06:17 Immature Gran # (Auto) 0.02 K/uL (0.01-0.20) 03/23/22 06:17 Echinocytes 1+ 03/23/22 06:17 ESR 47 mm/hr (0-20) H 03/22/22 16:42 PT 21.6 Seconds (9.0-12.0) H 03/24/22 06:26 INR 2.1 (0.9-1.1) H 03/24/22 06:26 ABG pH 7.49 (7.35-7.45) H 03/24/22 06:26 VBG pH 7.16 (7.36-7.41) L 03/22/22 21:02 VBG pCO2 30 mmHg (38-50) L 03/22/22 21:02 VBG pO2 34 mmHg 03/22/22 21:02 VBG HCO3 11 mmol/L 03/22/22 21:02 VBG O2 Saturation < 60.0 % 03/22/22 21:02 VBG Base Excess -16.7 mEq/L 03/22/22 21:02 Sodium 141 mmol/L (136-145) 03/24/22 06:26 Potassium 2.5 mmol/L (3.5-5.1) L* 03/24/22 06:26 Chloride 104 mmol/L (98-107) 03/24/22 06:26 Carbon Dioxide 21 mmol/L (21-32) 03/24/22 06:26 Anion Gap 16 (3-11) H 03/24/22 06:26 BUN 104 mg/dl (6-23) H 03/24/22 06:26 Creatinine 7.29 mg/dl (0.6-1.4) H* 03/24/22 06:26 Est Cr Clr Drug Dosing 8.4 ml/min 03/24/22 06:26 Est GFR ( Amer) 7.5 ml/min 03/24/22 06:26 Est GFR (Non-Af Amer) 6.5 ml/min 03/24/22 06:26 BUN/Creatinine Ratio 14.3 (10-20) 03/24/22 06:26 Glucose 165 mg/dl (70-99(Fasting)) H 03/24/22 06:26 Lactate 1.0 mmol/L (0.4-2.0) 03/22/22 19:22 Calcium 6.9 mg/dl (8.5-10.1) L 03/24/22 06:26 Ionized Calcium 0.80 mmol/L (1.12-1.32) L 03/24/22 09:10 Phosphorus 4.8 mg/dl (2.5-4.9) 03/24/22 06:26 Magnesium Cancelled 03/24/22 09:10 Iron 60 mcg/dl (35-175) 03/24/22 09:10 TIBC 181 mcg/dl (250-450) L 03/24/22 09:10 Unsaturated IBC 121 mcg/dl (155-355) L 03/24/22 09:10 Transferrin % Sat 33 % (20-50) 03/24/22 09:10 Ferritin Cancelled 03/24/22 09:10 Total Bilirubin 0.8 mg/dl (0.2-1.0) 03/24/22 06:26 AST 16 U/L (13-39) 03/24/22 06:26 ALT 10 U/L (7-52) 03/24/22 06:26 Alkaline Phosphatase 57 U/L (34-104) 03/24/22 06:26 Troponin I High Sens 18.0 pg/ml (0-20) 03/22/22 16:42 C-Reactive Protein Cancelled 03/24/22 09:10 Total Protein 5.8 gm/dl (6.0-8.3) L 03/24/22 06:26 Albumin 3.3 gm/dl (3.4-5.0) L 03/24/22 06:26 Globulin 2.5 gm/dl (2.5-4.0) 03/24/22 06:26 Albumin/Globulin Ratio 1.3 (0.9-2) 03/24/22 06:26 Lipase 2988 U/L (11-82) H 03/22/22 16:42 CA 19-9 Antigen 62 U/mL (<34) H 03/23/22 06:17 25-OH Vitamin D Total 10.0 ng/ml (30-100) L 03/24/22 09:10 TSH 1.734 uIu/ml (0.300-4.500) 03/22/22 16:42 PTH Intact 894.6 pg/ml (12.0-88.0) H 03/24/22 09:10 Cortisol AM Sample 18.06 mcg/dl (6.2-22.6) 03/24/22 09:10 Urine Color Yellow 03/22/22 20:50 Urine Appearance Clear (Clear) 03/22/22 20:50 Urine pH 5.0 (4.5-7.5) 03/22/22 20:50 Ur Specific [place] 1.010 (1.000-1.030) 03/22/22 20:50 Urine Protein 1+ (Negative) H 03/22/22 20:50 Urine Glucose (UA) Negative (Negative) 03/22/22 20:50 Urine Ketones Negative (Negative) 03/22/22 20:50 Urine Blood Trace (Negative) H 03/22/22 20:50 Urine Nitrite Negative (Negative) 03/22/22 20:50 Urine Bilirubin Negative (Negative) 03/22/22 20:50 Urine Urobilinogen Negative (Negative) 03/22/22 20:50 Ur Leukocyte Esterase Negative (Negative) 03/22/22 20:50 Urine WBC (Auto) 1-5 /hpf (0-5) 03/22/22 20:50 Urine RBC (Auto) 0-4 /hpf (0-4) 03/22/22 20:50 U Hyaline Cast (Auto) 1-5 /lpf (0-5) 03/22/22 20:50 U Epithel Cells (Auto) 10-20 /lpf (0-5) H 03/22/22 20:50 Urine Bacteria (Auto) Negative (Negative) 03/22/22 20:50 Urine Yeast Not Reportable 03/22/22 20:50 Ur Random Creatinine 71.4 mg/dl 03/22/22 20:50 Ur Random Sodium 61 mmol/L 03/22/22 20:50 Stl C. cayetanensis PCR Not Detected (NotDetected) 03/23/22 00:24 Stool Rotavirus A PCR Not Detected (NotDetected) 03/23/22 00:24 Stl Adenov F 40/41 PCR Not Detected (NotDetected) 03/23/22 00:24 Stool Astrovirus (PCR) Not Detected (NotDetected) 03/23/22 00:24 Stool Campylobacter PCR Not Detected (NotDetected) 03/23/22 00:24 Stl C. diff Tox B Gene Negative Cdiff Gene (Neg) 03/23/22 00:24 Stool Cryptosporidium PCR Not Detected (NotDetected) 03/23/22 00:24 Stl E.coli Shiga Tox PCR Not Detected (NotDetected) 03/23/22 00:24 Stl Enterotoxigenic E PCR Not Detected (NotDetected) 03/23/22 00:24 Stool EPEC (PCR) Not Detected (NotDetected) 03/23/22 00:24 Stool EAEC (PCR) Not Detected (NotDetected) 03/23/22 00:24 Stl E. histolytica PCR Not Detected (NotDetected) 03/23/22 00:24 Stool Giardia Lamblia PCR Not Detected (NotDetected) 03/23/22 00:24 Stool Salmonella PCR Not Detected (NotDetected) 03/23/22 00:24 Stool Sapovirus (PCR) Not Detected (NotDetected) 03/23/22 00:24 Stl P. shigelloides PCR Not Detected (NotDetected) 03/23/22 00:24 Stl Shigella/EIEC PCR Not Detected (NotDetected) 03/23/22 00:24 St Y.enterocolitica PCR Not Detected (NotDetected) 03/23/22 00:24 Stool Vibrio (PCR) Not Detected (NotDetected) 03/23/22 00:24 Stl Vibrio cholerae PCR Not Detected (NotDetected) 03/23/22 00:24 Stl Norovirus GI/GII PCR Not Detected (NotDetected) 03/23/22 00:24 SARS-CoV-2, RNA, NAAT NEGATIVE (NEGATIVE) 03/22/22 18:35 Impressions Chest X-Ray 03/22/22 15:29 XR chest 2V PA/lateral CLINICAL HISTORY: Weakness, hypotension COMPARISON STUDY: No previous studies for comparison. FINDINGS: Right sided [id number] is in place. There are median sternotomy. Mild cardiomegaly is noted. There is no evidence for pulmonary edema. No consolidation to suggest pneumonia. No pneumothorax or pleural effusion. IMPRESSION: No acute cardiopulmonary findings. ACT 112: Negative or not required by law. Electronically signed by: Jason Melendez M.D. 03/22/2022 4:48 PM Abdomen/Pelvis CT 03/22/22 18:43 CT SCAN OF THE ABDOMEN AND PELVIS WITHOUT IV CONTRAST CLINICAL HISTORY: Acute renal insufficiency. Diarrhea. COMPARISON STUDY: No priors. TECHNIQUE: CT scan of the abdomen and pelvis is performed from the lung bases to the proximal femora. Images are reviewed in the axial, sagittal, and coronal planes. IV contrast was not administered for this examination due to poor renal function. Note that the examination is suboptimal without oral and IV contrast. A dose lowering technique was utilized adhering to the principles of ALARA. CT DOSE: 383.50 mGy.cm FINDINGS: Lung bases: The heart is enlarged and without pericardial effusion. There is bibasilar scarring/atelectasis. Traction bronchiectasis is seen at both lung bases. Visualized upper septal thickening indicates fluid overload/congestive failure. No airspace consolidation or pleural effusion is identified. There is a small hiatal hernia. Liver: The unenhanced liver is normal in size, contour, and attenuation. There is no intrahepatic biliary ductal dilatation. Gallbladder: There are calcified gallstones without CT evidence of acute cholecystitis. Spleen: Normal in size and attenuation. Pancreas: Question a 1.8 cm low-attenuation lesion within the uncinate process of the pancreas. The unenhanced pancreas is otherwise grossly unremarkable but not well evaluated without IV contrast. Adrenal glands: Unremarkable. Kidneys: The unenhanced kidneys are normal in size and without hydronephrosis. There are no renal calculi identified. Simple and complex/hyperdense renal cyst measure up to 2.9 cm. A 1.2 cm lesion arising from the right lower pole on image #168 distended criteria for a cyst. Abdominal vasculature: The abdominal aorta is normal in course and caliber noting advanced atherosclerotic calcification. Bowel: There is no bowel obstruction. There are fluid-filled loops of small bowel. The appendix is well-visualized and normal. Peritoneum: There is no intraperitoneal free air or abdominal ascites. There is a fat-containing umbilical hernia. Lymphadenopathy: None. Pelvic viscera: The bladder is significantly distended but otherwise normal appearance. The prostate gland is enlarged and heterogeneous. Skeletal structures: The skeletal structures are osteopenic. The skeletal structures are heterogeneously osteopenic. There is mild lumbosacral spondylosis. There is a chronic superior endplate compression deformity of T12. No lytic or blastic lesions are seen. IMPRESSION: 1. There are nonspecific fluid-filled loops of small bowel. No bowel wall thickening or inflammation is seen. Correlate clinically for evidence of a nonspecific enteritis. 2. There is no bowel obstruction. 3. Question a 1.8 cm low-attenuation lesion within the uncinate process of the pancreas. This is not well assessed without IV contrast and may be artifactual. Correlation with a contrast enhanced pancreas protocol CT scan is recommended for further assessment and to exclude underlying pancreatic lesion. 4. There is a 12 mm indeterminant lesion arising from the right kidney. This can also be further assessed on the contrast-enhanced CT scan. 5. Cholelithiasis. 6. Cardiomegaly. 7. Bladder distention. 8. Additional findings as above. ACT 112: Negative or not required by law. Electronically signed by: Cuauhtemoc Fuchs M.D. 03/22/2022 8:55 PM PG Care Time/CCT Total # of Minutes Spent Total Time Spent with Patient: Total time spent is greater than 50% in coordination of care (as documented) at patient's floor/unit and/or counseling patient: Coding Level of Care Code 40417 INT INP/OBS CARE 75MIN Diagnoses Diarrhea R19.7 Pancreatic lesion K86.9
[2022-03-24 12:49] LABS: Ferritin 525.6 ng/ml (8-388)
[2022-03-24] MEDS: MAGNESIUM SULFATE / D5W 1 GM/100 ML BAG IV SCH ×2 (14:24→16:39)
[2022-03-24 15:20] LABS: BUN Creatinine Ratio 14.4 (10-20); Calcium 7.4 mg/dl (8.5-10.1); Creatinine Clr Calc Pharmacy 8.3 ml/min; Est GFR (African American) 7.4 ml/min; Est GFR (Non-African American) 6.4 ml/min; Immunoglobulin A 217.4 mg/dl (70-400); Immunoglobulin G 942.1 mg/dl (635-1741); Immunoglobulin M 24.4 mg/dl (45-281); Potassium 2.9 mmol/L (3.5-5.1)
--- NOTE | 2022-03-24 15:38 | Electrocardiogram Report ---
Test Reason : Blood Pressure : / mmHG Vent. Rate : 068 BPM Atrial Rate : 068 BPM P-R Int : 148 ms QRS Dur : 106 ms QT Int : 472 ms P-R-T Axes : 000 -31 017 degrees QTc Int : 501 ms Poor data quality, interpretation may be adversely affected Sinus rhythm with Premature supraventricular complexes Left axis deviation Nonspecific ST and T wave abnormality Prolonged QT Abnormal ECG When compared with ECG of 22-MAR-2022 16:39, No significant change Confirmed by Doug Butler ([id number]) on 03/24/2022 3:38:01 PM Referred By: Doug Franklin Confirmed By:Doug Butler
--- NOTE | 2022-03-24 18:46 | Billing Data ---
Date of Service March 24, 2022 Coding Level of Care Code 00497 SUB INP/OBS CARE MIN
[2022-03-24] MEDS ORDERED: MELATONIN 3 MG TAB PO PRN (19:07)
[2022-03-25] MEDS: LACTATED RINGER'S 1,000 ML IV SCH ×3 (00:05→16:29)
[2022-03-25 06:24] LABS: Basophils # (auto) 0.04 K/uL (0-0.2); Basophils % (auto) 0.5 %; Eosinophils # (auto) 0.09 K/uL (0-0.50); Eosinophils % (auto) 1.1 %; Hematocrit (blood only) 28.9 % (42.0-52.0); Hemoglobin 10.1 g/dl (14.0-18.0); Immature Granulocytes # (auto) 0.07 K/uL (0.01-0.20); Immature Granulocytes % (auto) 0.8 %; Lymphocytes # (auto) 0.91 K/uL (1.2-3.4); Lymphocytes % (auto) 10.9 %; Mean Corpuscular Hemoglobin 29.5 pg (25.0-34.0); Mean Corpuscular Hgb Conc 34.9 g/dL (32.0-36.0); Mean Corpuscular Volume 84.5 fL (80.0-100.0); Mean Platelet Volume 12.1 fL (9.4-12.4); Monocytes # (auto) 0.61 K/uL (0.11-0.59); Monocytes % (auto) 7.3 %; Neutrophils % (auto) 79.4 %; Platelet Count 102 K/uL (130-400); RDW Coefficient of Variation 13.8 % (11.5-14.5); RDW Standard Deviation 42.6 fL (36.4-46.3); Red Blood Count 3.42 M/uL (4.70-6.10); White Blood Count 8.32 K/ul (4.8-10.8)
[2022-03-25 06:43] LABS: Albumin Globulin Ratio 1.3 (0.9-2); Albumin Level 3.8 gm/dl (3.4-5.0); BUN Creatinine Ratio 14.7 (10-20); Bilirubin,Total 0.8 mg/dl (0.2-1.0); Creatinine Clr Calc Pharmacy 8.8 ml/min; Est GFR (Non-African American) 6.9 ml/min; Potassium 3.2 mmol/L (3.5-5.1); Total Protein 6.8 gm/dl (6.0-8.3)
[2022-03-25 06:46] LABS: INR 1.7 (0.9-1.1); Prothrombin Time 17.6 Seconds (9.0-12.0)
[2022-03-25] MEDS: PANCREAZE (LIPASE 10,500U) CAP PO SCH ×2 (08:36→11:24)
[2022-03-25] MEDS: METOPROLOL TARTRATE 25 MG TAB PO SCH ×2 (08:36→20:27)
[2022-03-25] MEDS: POTASSIUM CHLORIDE / WTR 10 MEQ/100 ML PLCT IV SCH ×3 (08:36→11:10)
[2022-03-25] MEDS: SIMVASTATIN 20 MG TAB PO SCH (08:36)
[2022-03-25] MEDS: SODIUM BICARBONATE 650 MG TAB PO SCH ×2 (08:37→20:26)
[2022-03-25] MEDS ORDERED: POTASSIUM CHLORIDE CRTAB 20 MEQ TABCR PO SCH (09:00)
--- NOTE | 2022-03-25 10:25 | Nephrology Progress Note ---
Date of Service March 25, 2022 Assessment & Plan (1) Acute kidney injury: Plan: Prerenal with suspected component of ATN in the setting of intravascular volume depletion due to dehydration. Tolerating IVF replacement well. Non-oliguric. Electrolytes notable for hypokalemia. No emergent indication for dialysis. sPTH and anemia concerning for more advanced CKD. Messi and I discussed this yesterday. Thankfully, creatinine slightly improved overnight and no indication for [employer] currently. Will require close prospective monitoring. Document strict I/O's. Repeat metabolic profile this afternoon. Medications appropriately dosed for kidney dysfunction. (2) Increased anion gap metabolic acidosis: Plan: Continue IVF. Combination of renal insufficiency and diarrhea. NaHCO3 replacement PO ordered. (3) Secondary hyperparathyroidism: Plan: With 25OH D insufficiency. Start ergocalciferol 62830 units weekly yesterday. Calcitriol 0.25 mcg QMWF. (4) Anemia: Plan: Tsat 33. Stable. CHRISTIANA therapy held. GI consultation appreciated. (5) Hypokalemia: Plan: GI losses. Additional IV replacement ordered. Monitor magnesium daily. (6) Diarrhea: Plan: Evaluation per hospitalist team and GI. Admission and Anticipated Discharge Date Admission Date: March 22, 2022 Subjective No acute events overnight. Continues to describe large volume of frequent watery diarrhea. Messi states that he moved his bowels a few times this AM. No fevers or chills. No abdominal pain. Review of Systems Review of Systems: All systems reviewed & are unremarkable except as noted in HPI & below Physical Exam Constitutional: well developed and + thin; no acute distress Eyes: + anicteric sclerae; no corneal abnormality ENMT: Mouth: + dry oral mucous membranes; no oral mucosal abnormality Neck: normal visual inspection and trachea midline Respiratory: normal respiratory effort Auscultation: lungs clear to auscultation bilaterally Cardiovascular: Rate/Rhythm: regular rate Heart Sounds: normal S1, normal S2 and + murmur Extremities: no edema Musculoskeletal: Extremities: no cyanosis and no clubbing Skin: + turgor decreased; no jaundice Neurologic: Motor/Sensory: no tremor and no asterixis Psychiatric: Orientation: alert and oriented x 3 Results & Data ([facility]) Vital Signs (Past 12 Hours) Vital Signs Temp Pulse Pulse Pulse Resp BP Pulse Ox 03/25/22 10:00 83 03/25/22 08:02 36.7 C 74 18 141/56 H 100 03/25/22 03:17 36.5 C 80 20 137/56 L 99 03/25/22 00:10 36.6 C 73 19 154/69 H 100 O2 Del Method 03/25/22 10:00 03/25/22 08:02 Room Air 03/25/22 03:17 Room Air 03/25/22 00:10 Room Air Laboratory Results Laboratory Results - last 24 hr 03/24/22 03/24/22 03/24/22 09:10 09:10 14:18 WBC RBC Hgb Hct MCV MCH MCHC RDW Std Deviation RDW Coeff of Berto Plt Count MPV Immature Gran % (Auto) Neut % (Auto) Lymph % (Auto) [place] % (Auto) Eos % (Auto) Baso % (Auto) Neut # (Auto) Lymph # (Auto) [place] # (Auto) Eos # (Auto) Baso # (Auto) Immature Gran # (Auto) PT INR Sodium 141 Potassium 2.9 L Chloride 105 Carbon Dioxide 21 Anion Gap 15 H BUN 106 H Creatinine 7.37 H* Est Cr Clr Drug Dosing 8.3 Est GFR ( Amer) 7.4 Est GFR (Non-Af Amer) 6.4 BUN/Creatinine Ratio 14.4 Glucose 125 H Calcium 7.4 L Magnesium Cancelled Iron 60 TIBC 181 L Unsaturated IBC 121 L Transferrin % Sat 33 Ferritin 525.6 H Cancelled Total Bilirubin AST ALT Alkaline Phosphatase C-Reactive Protein Cancelled Total Protein Albumin Globulin Albumin/Globulin Ratio Gastrin Stool Fat Screen Stool Occult Bld Scrn Stool Calprotectin IgG 942.1 IgA 217.4 IgM 24.4 L Tiss Transglutamin IgA Miscellaneous Test Miscellaneous Test 2 03/24/22 03/24/22 03/24/22 14:18 15:20 15:20 WBC RBC Hgb Hct MCV MCH MCHC RDW Std Deviation RDW Coeff of Berto Plt Count MPV Immature Gran % (Auto) Neut % (Auto) Lymph % (Auto) [place] % (Auto) Eos % (Auto) Baso % (Auto) Neut # (Auto) Lymph # (Auto) [place] # (Auto) Eos # (Auto) Baso # (Auto) Immature Gran # (Auto) PT INR Sodium Potassium Chloride Carbon Dioxide Anion Gap BUN Creatinine Est Cr Clr Drug Dosing Est GFR ( Amer) Est GFR (Non-Af Amer) BUN/Creatinine Ratio Glucose Calcium Magnesium Iron TIBC Unsaturated IBC Transferrin % Sat Ferritin Total Bilirubin AST ALT Alkaline Phosphatase C-Reactive Protein Total Protein Albumin Globulin Albumin/Globulin Ratio Gastrin Cancelled Stool Fat Screen Pending Stool Occult Bld Scrn Stool Calprotectin Pending IgG IgA IgM Tiss Transglutamin IgA Pending Miscellaneous Test Miscellaneous Test 2 03/24/22 03/25/22 03/25/22 22:25 05:57 05:57 WBC RBC Hgb Hct MCV MCH MCHC RDW Std Deviation RDW Coeff of Berto Plt Count MPV Immature Gran % (Auto) Neut % (Auto) Lymph % (Auto) [place] % (Auto) Eos % (Auto) Baso % (Auto) Neut # (Auto) Lymph # (Auto) [place] # (Auto) Eos # (Auto) Baso # (Auto) Immature Gran # (Auto) PT 17.6 H INR 1.7 H Sodium Potassium Chloride Carbon Dioxide Anion Gap BUN Creatinine Est Cr Clr Drug Dosing Est GFR ( Amer) Est GFR (Non-Af Amer) BUN/Creatinine Ratio Glucose Calcium Magnesium Iron TIBC Unsaturated IBC Transferrin % Sat Ferritin Total Bilirubin AST ALT Alkaline Phosphatase C-Reactive Protein Total Protein Albumin Globulin Albumin/Globulin Ratio Gastrin Stool Fat Screen Stool Occult Bld Scrn Positive A Stool Calprotectin IgG IgA IgM Tiss Transglutamin IgA Miscellaneous Test Cancelled Miscellaneous Test 2 Pending 03/25/22 03/25/22 03/25/22 05:57 05:57 05:57 WBC 8.32 RBC 3.42 L Hgb 10.1 L Hct 28.9 L MCV 84.5 MCH 29.5 MCHC 34.9 RDW Std Deviation 42.6 RDW Coeff of Berto 13.8 Plt Count 102 L MPV 12.1 Immature Gran % (Auto) 0.8 Neut % (Auto) 79.4 Lymph % (Auto) 10.9 [place] % (Auto) 7.3 Eos % (Auto) 1.1 Baso % (Auto) 0.5 Neut # (Auto) 6.60 H Lymph # (Auto) 0.91 L [place] # (Auto) 0.61 H Eos # (Auto) 0.09 Baso # (Auto) 0.04 Immature Gran # (Auto) 0.07 PT INR Sodium 141 Potassium 3.2 L Chloride 105 Carbon Dioxide 21 Anion Gap 15 H BUN 102 H Creatinine 6.92 H* D Est Cr Clr Drug Dosing 8.8 Est GFR ( Amer) 8.0 Est GFR (Non-Af Amer) 6.9 BUN/Creatinine Ratio 14.7 Glucose 118 H Calcium 8.0 L Magnesium Iron TIBC Unsaturated IBC Transferrin % Sat Ferritin Total Bilirubin 0.8 AST 29 ALT 14 Alkaline Phosphatase 66 C-Reactive Protein Total Protein 6.8 Albumin 3.8 Globulin 3.0 Albumin/Globulin Ratio 1.3 Gastrin Pending Stool Fat Screen Stool Occult Bld Scrn Stool Calprotectin IgG IgA IgM Tiss Transglutamin IgA Miscellaneous Test Miscellaneous Test 2 PG Care Time/CCT Total # of Minutes Spent Total Time Spent with Patient: Total time spent is greater than 50% in coordination of care (as documented) at patient's floor/unit and/or counseling patient: Coding Level of Care Code 11465 SUB INP/OBS CARE 3/50MIN Diagnoses Acute kidney injury N17.9 Increased anion gap metabolic acidosis E87.29 Secondary hyperparathyroidism N25.81 Anemia D64.9 Hypokalemia E87.6 Diarrhea R19.7
--- NOTE | 2022-03-25 10:38 | Hospitalist Progress Note ---
Date of Service March 25, 2022 Assessment & Plan (1) Diarrhea: (2) Acute kidney injury: (3) Atrial fibrillation: (4) Dyslipidemia: (5) Hypertension: (6) S/P AVR (aortic valve replacement): (7) H/O stem cell transplant: (8) Increased anion gap metabolic acidosis: (9) Supratherapeutic INR: (10) Elevated lipase: (11) Knee pain: Plan Messi is a 77 year old male with history of Multiple Myeloma (s/p Stem Cell Transplant), A Fib, mechanical aortic valve, HTN, dyslipidemia, and BPH. Who presented to the hospital with a 6 month history of worsening diarrhea. Patient was admitted to the hospital for acute kidney injury in association with anion gap metabolic acidosis. Pancreatic and renal masses were noted on non-contrast CT scan. [id number] Watery Diarrhea - In context of >6 months of intermittent, non voluminous watery diarrhea - 2 weeks of worsening high-volume watery diarrhea with associated anorexia - ESR 47, CRP 3.25 on arrival; no leukocytosis; lytes largely stable in setting of profound ANDREA - CT-A/P: Evidence of kidney and pancreatic mass requiring further evaluation w/ contrast - Ample hydration will be provided as outlined below - Discontinue Pancreatic Enzymes after meals - Started cholestyramine 4mg - Given length of time this has been ongoing, will likely need colonoscopy (last >10 years ago per patient) while here or as outpatient (can consider GI consult once studies return) - Biofire and C Diff negative, symptoms not improved on pancreatic enzymes and unrelated to food, less likely malabsorption - Pending: Stool calproectin, Fecal Fat, Gastrin, Tissue transglutaminase, 24 Urinary 5-HIAA, VIP level - Positive Fecal Occult, we appreciate GI's expertise ANDREA - 2/2 Creatinine 6.99 No reported history of prior CKD; however, [place] [facility] [place] labs with Cr 1.7 In the history of worsening watery diarrhea x2 weeks, suspect that ANDREA is secondary to intravascular depletion/dehydration with possible ATN component, likely compounded further by ongoing hydrochlorothiazide therapy No evidence of appreciable electrolyte derangement or findings that would necessitate dialysis at this time Trend labs, gentle electrolyte repletion as necessary --- Continue LR @ 125 cc/hr Paroxysmal AFib In sinus rhythm on arrival, rate controlled with metoprolol - 03/24, INR stable at 2.1 Restarted Warfarin 5mg INR goal: 2.53.0 Hyperlipidemia Continue statin Hypertension Hold hydrochlorothiazide in setting of profound ANDREA as above Pressures have been stable since arrival;reduced metoprolol dose to 25 mg twice daily for now, increase back to home dose of 50 mg twice daily once acute needs have stabilized AoV Replacement - Stable. On Warfarin. MM s/p Stem Cell Transplant in 2013 - Follows with [facility] -- completed chemotherapy in 2016 - Stable and in-remission. Anion gap metabolic acidosis-- gap acidemia with AG 16 / HCO3 12 In the context of ongoing diarrhea and findings consistent with dehydration Likely more subacute at this point. Lactate 0.7 on admission but this was taken after several bags of fluid had been administered -- suspect this was a component prior, as is uremia. Continue fluid therapy as above, recheck in AM -- consider secondary work-up for AGMA if no improvement on serial labs over next several days Supratherapeutic INR - INR 8.5 on arrival - Suspect largely d/t poor PO intake over past several weeks - Hold home warfarin - INR 9.5 Mar 23, administered 5 mg of Vitamin K Oral - Mar 24, INR 2.1, Warfarin 5mg restarted Elevated Lipase-at 3000 on admission - Clinically does not appear c/w pancreatitis. Likely contributory from renal insufficiency, ?possibly intestinal inflammation, acidemia - CT-A/P as above, ample hydration Knee pain ddx - patellar tenosynovitis RICE and brace, pain improved Insomnia - Mirtazapine 15 mg at bedtime for sleep, with the goal of a side benefit of improved appetite Code: Full Diet: regular Prophylaxis: Warfarin therapy, supratherapeutic INR, hold for now Dispo: MS Admission and Anticipated Discharge Date Admission Date: March 22, 2022 Supervising Physician Co-Signing Physician Notes I personally examined the patient and verified all taylor points of history and exam, discussed case, and agree with decision making with Garry Borrero MS4 and Dr Lao feeling about the same. Still about the same diarrhea. Still about the same poor appetite. Reviewed plan. Vitals noted, in general he is awake and alert pleasant no distress. HEENT normocephalic atraumatic mucous membranes moist. Breathing unlabored no accessory muscle use good effort. Skin shows no rashes no pallor or icterus. CBC, basic metabolic panel reviewed. Acute renal failure in the context of acute on what sounds to be chronic diarrheathe most obvious course of events would be diarrhea leading to dehydration leading to ATN. Continue extensive work-up for the etiology of diarrhea. In the meantime, try to slow bowel throughput some with cholestyramine. Continue to follow closely. Broad work-up underway. No need for urgent dialysis. Appreciate GI and nephrology input. Risk overall high given his severe acute renal failure, and diarrhea that persists with large volume of fairly elusive etiology. Add Remeron at bedtime both for insomnia, and to try to help stimulate his appetite. High risk due to dense slow to improve renal failure driven by ongoing refractory diarrhea and ongoing need for IV management otherwise as above Kimberly Londono is a 77 year old male with a PMH of multiple myeloma (s/p chemotherapy 2015), aortic valve replacement 1997, HTN, dyslipidemia admitted for prerenal ANDREA/ATN following a 6-8 history of diarrhea that worsened in severity and frequency over the last 2 weeks with decreased PO intake. He had 2 episodes of diarrhea last night and 3 episodes this morning. Knee pain is significantly improved. Review of Systems Review of Systems: See HPI Physical Exam Constitutional: well developed and + thin; no acute distress Eyes: + anicteric sclerae; no corneal abnormality ENMT: Mouth: + dry oral mucous membranes; no oral mucosal abnormality Neck: normal visual inspection and trachea midline Respiratory: normal respiratory effort Auscultation: lungs clear to auscultation bilaterally Cardiovascular: Rate/Rhythm: regular rate Heart Sounds: normal S1 and normal S2 Extremities: no edema Musculoskeletal: Extremities: no cyanosis (Small effusion of the left anterior knee, tender to palpation superior) and no clubbing Skin: + turgor decreased; no jaundice Neurologic: Motor/Sensory: no tremor and no asterixis Psychiatric: Orientation: alert and oriented x 3 Results & Data Results & Data ([facility]) Vital Signs (Past 12 Hours) Vital Signs Temp Pulse Pulse Pulse Resp BP Pulse Ox 03/25/22 10:00 83 03/25/22 08:02 36.7 C 74 18 141/56 H 100 03/25/22 03:17 36.5 C 80 20 137/56 L 99 03/25/22 00:10 36.6 C 73 19 154/69 H 100 O2 Del Method 03/25/22 10:00 03/25/22 08:02 Room Air 03/25/22 03:17 Room Air 03/25/22 00:10 Room Air
[2022-03-25] MEDS: CHOLECALCIFEROL 1,000 UNITS 25 MCG TAB PO SCH (12:03)
[2022-03-25 16:16] LABS: BUN Creatinine Ratio 13.9 (10-20); Calcium 7.6 mg/dl (8.5-10.1); Creatinine Clr Calc Pharmacy 8.7 ml/min; Est GFR (African American) 7.9 ml/min; Est GFR (Non-African American) 6.8 ml/min; Potassium 3.2 mmol/L (3.5-5.1)
[2022-03-25] MEDS: WARFARIN SOD 5 MG TAB PO SCH (16:36)
--- NOTE | 2022-03-25 18:41 | Billing Data ---
Date of Service March 25, 2022 Coding Level of Care Code 18278 SUB INP/OBS CARE MIN
[2022-03-25 20:15] LABS: Albumin Level 3.5 gm/dl (3.4-5.0); Phosphorus 4.8 mg/dl (2.5-4.9)
[2022-03-25] MEDS: MIRTAZAPINE TAB 15 MG TAB PO SCH (20:27)
[2022-03-25] MEDS: CHOLESTYRAMINE LIGHT 4 GM PKT PO SCH (20:27)
[2022-03-26] MEDS: LACTATED RINGER'S 1,000 ML IV SCH ×3 (01:20→18:22)
[2022-03-26 06:31] LABS: INR 2.3 (0.9-1.1); Prothrombin Time 23.6 Seconds (9.0-12.0)
[2022-03-26 06:53] LABS: Albumin Globulin Ratio 1.2 (0.9-2); Albumin Level 3.6 gm/dl (3.4-5.0); BUN Creatinine Ratio 13.6 (10-20); Bilirubin,Total 0.6 mg/dl (0.2-1.0); Calcium 8.3 mg/dl (8.5-10.1); Creatinine Clr Calc Pharmacy 8.8 ml/min; Est GFR (African American) 8.1 ml/min; Magnesium 1.8 mg/dl (1.7-2.4); Potassium 3.3 mmol/L (3.5-5.1); Total Protein 6.6 gm/dl (6.0-8.3)
[2022-03-26] MEDS: CHOLESTYRAMINE LIGHT 4 GM PKT PO SCH ×2 (09:17→20:39)
[2022-03-26] MEDS: SODIUM BICARBONATE 650 MG TAB PO SCH ×2 (09:17→20:39)
[2022-03-26] MEDS: POTASSIUM CHLORIDE / WTR 10 MEQ/100 ML PLCT IV SCH ×3 (09:22→12:12)
--- NOTE | 2022-03-26 09:46 | Hospitalist Progress Note ---
Date of Service March 26, 2022 Assessment & Plan (1) Diarrhea: (2) Acute kidney injury: (3) Atrial fibrillation: (4) Dyslipidemia: (5) Hypertension: (6) S/P AVR (aortic valve replacement): (7) H/O stem cell transplant: (8) Increased anion gap metabolic acidosis: (9) Supratherapeutic INR: (10) Elevated lipase: (11) Knee pain: Plan Messi is a 77 year old male with history of Multiple Myeloma (s/p Stem Cell Transplant), A Fib, mechanical aortic valve, HTN, dyslipidemia, and BPH. Who presented to the hospital with a 6 month history of worsening diarrhea. Patient was admitted to the hospital for acute kidney injury in association with anion gap metabolic acidosis. Pancreatic and renal masses were noted on non-contrast CT scan. [id number] Watery Diarrhea - In context of >6 months of intermittent, non voluminous watery diarrhea - 2 weeks of worsening high-volume watery diarrhea with associated anorexia - ESR 47, CRP 3.25 on arrival; no leukocytosis; lytes largely stable in setting of profound ANDREA - CT-A/P: Evidence of kidney and pancreatic mass requiring further evaluation w/ contrast - Ample hydration will be provided as outlined below - Discontinue Pancreatic Enzymes after meals - Continue cholestyramine 4mg, addition of Imodium 2/3 - Given length of time this has been ongoing, will likely need colonoscopy (last >10 years ago per patient) while here or as outpatient (can consider GI consult once studies return) - Biofire and C Diff negative, symptoms not improved on pancreatic enzymes and unrelated to food, less likely malabsorption - Pending: Stool calproectin, Fecal Fat, Gastrin, Tissue transglutaminase, 24 Urinary 5-HIAA, VIP level - Positive Fecal Occult, we appreciate GI's expertise ANDREA - 2/2 Creatinine 6.99 No reported history of prior CKD; however, [place] [facility] [place] labs with Cr 1.7 In the history of worsening watery diarrhea x2 weeks, suspect that ANDREA is secondary to intravascular depletion/dehydration with possible ATN component, likely compounded further by ongoing hydrochlorothiazide therapy No evidence of appreciable electrolyte derangement or findings that would necessitate dialysis at this time Trend labs, gentle electrolyte repletion as necessary --- Continue LR @ 125 cc/hr Paroxysmal AFib In sinus rhythm on arrival, rate controlled with metoprolol - 2/1, INR stable at 2.1 Restarted Warfarin 5mg INR goal: 2.53.0 Hyperlipidemia Continue statin Hypertension Hold hydrochlorothiazide in setting of profound ANDREA as above Pressures have been stable since arrival;reduced metoprolol dose to 25 mg twice daily for now, increase back to home dose of 50 mg twice daily once acute needs have stabilized AoV Replacement - Stable. On Warfarin. MM s/p Stem Cell Transplant in 2013 - Follows with [facility] -- completed chemotherapy in 2016 - Stable and in-remission. Anion gap metabolic acidosis-- gap acidemia with AG 16 / HCO3 12 In the context of ongoing diarrhea and findings consistent with dehydration Likely more subacute at this point. Lactate 0.7 on admission but this was taken after several bags of fluid had been administered -- suspect this was a component prior, as is uremia. Continue fluid therapy as above, recheck in AM -- consider secondary work-up for AGMA if no improvement on serial labs over next several days Supratherapeutic INR - INR 8.5 on arrival - Suspect largely d/t poor PO intake over past several weeks - Hold home warfarin - INR 9.5 Mar 23, administered 5 mg of Vitamin K Oral - Mar 24, INR 2.1, Warfarin 5mg restarted - Mar 26 INR 2.3 Elevated Lipase-at 3000 on admission - Clinically does not appear c/w pancreatitis. Likely contributory from renal insufficiency, ?possibly intestinal inflammation, acidemia - CT-A/P as above, ample hydration Knee pain ddx - patellar tenosynovitis RICE and brace, pain improved Insomnia - Mirtazapine 15 mg at bedtime for sleep, with the goal of a side benefit of improved appetite - addition of 5mg Melatonin 2/3 Code: Full Diet: renal Prophylaxis: Warfarin therapy Dispo: MS Consults: Nephro, GI Admission and Anticipated Discharge Date Admission Date: March 22, 2022 Supervising Physician Co-Signing Physician Notes I personally examined the patient and verified all taylor points of history and exam, discussed case, and agree with decision making with Garry Borrero MS4 and Dr Lao Trying to get out of bed more. Appetite may be a little bit better. Does note some degree of less diarrhea now that he is on cholestyramine and Imodiumis aware that this is really mostly masking diarrhea and making things more tolerable, not necessarily changing the underlying physiology. Discussed with GI who at this point is largely awaiting the pending studies. Appreciate ne phrology input. Vitals noted, in general he is awake and alert pleasant no distress. HEENT normocephalic atraumatic mucous membranes moist. Breathing unlabored no accessory muscle use good effort. Skin shows no rashes no pallor or icterus. CBC, basic metabolic panel reviewed. Acute renal failure in the context of acute on what sounds to be chronic diarrheathe most obvious course of events would be diarrhea leading to dehydration leading to ATN. Continue extensive work-up for the etiology of diarrhea. In the meantime, try to slow bowel throughput some with cholestyramine. Continue to follow closely. Broad work-up underway. No need for urgent dialysis. Appreciate GI and nephrology input. Risk overall high given his severe acute renal failure, and diarrhea that persists with large volume of fairly elusive etiology. Continue trial of cholestyramine and Imodium. Continue trial of Remeron at bedtime both for insomnia, and to try to help stimulate his appetite. High risk due to dense slow to improve renal failure driven by ongoing refractory diarrhea and ongoing need for IV management otherwise as above Kimberly Londono is a 77 year old male with a PMH of multiple myeloma (s/p chemotherapy 2015), aortic valve replacement 1997, HTN, dyslipidemia admitted for prerenal ANDREA/ATN following a 6-8 history of diarrhea that worsened in severity and frequency over the last 2 weeks with decreased PO intake. He had 7 episodes of diarrhea last night. He did not sleep last night. Knee pain is significantly improved. Has a moderate appetite. Prefers IV medication if PO meds are larger pills. Otherwise can swallow smaller pills. Review of Systems Review of Systems: See HPI Physical Exam Constitutional: well developed and + thin; no acute distress Eyes: + anicteric sclerae; no corneal abnormality ENMT: Mouth: + dry oral mucous membranes; no oral mucosal abnormality Neck: normal visual inspection and trachea midline Respiratory: normal respiratory effort Auscultation: lungs clear to auscultation bilaterally Cardiovascular: Rate/Rhythm: regular rate Heart Sounds: normal S1 and normal S2 Extremities: no edema Musculoskeletal: Extremities: no cyanosis (Left knee wrapped) and no clubbing Skin: + turgor decreased; no jaundice Neurologic: Motor/Sensory: no tremor and no asterixis Psychiatric: Orientation: alert and oriented x 3 Results & Data Results & Data ([facility]) Vital Signs (Past 12 Hours) Vital Signs Temp Pulse Pulse Pulse Resp BP Pulse Ox 03/26/22 07:00 76 03/26/22 07:48 37.2 C 78 18 137/55 L 99 03/26/22 03:16 37.1 C 77 18 160/80 H 100 03/25/22 23:00 37.1 C 72 18 161/84 H 99 03/25/22 23:28 86 O2 Del Method 03/26/22 07:00 03/26/22 07:48 Room Air 03/26/22 03:16 Room Air 03/25/22 23:00 Room Air 03/25/22 23:28
[2022-03-26] MEDS: SIMVASTATIN 20 MG TAB PO SCH (10:21)
[2022-03-26] MEDS: CALCITRIOL 0.25 MCG CAPSULE PO SCH (10:21)
[2022-03-26] MEDS: METOPROLOL TARTRATE 25 MG TAB PO SCH ×2 (10:22→20:32)
[2022-03-26] MEDS: CHOLECALCIFEROL 1,000 UNITS 25 MCG TAB PO SCH (10:22)
[2022-03-26] MEDS ORDERED: LOPERAMIDE HCL 2 MG CAP PO STA (10:47)
--- NOTE | 2022-03-26 14:37 | Nephrology Progress Note ---
Date of Service March 26, 2022 Assessment & Plan (1) Acute kidney injury: Plan: Prerenal with suspected component of ATN in the setting of intravascular volume depletion due to dehydration. Tolerating IVF replacement well. Non-oliguric. Electrolytes notable for hypokalemia. No emergent indication for dialysis. sPTH and anemia concerning for more advanced CKD. Messi and I discussed this. Thankfully, creatinine slightly improved overnight and no immediate indication for [employer] currently. Will require close prospective monitoring. Document strict I/O's. Repeat metabolic profile this afternoon. Medications appropriately dosed for kidney dysfunction. (2) Increased anion gap metabolic acidosis: Plan: Continue IVF. Combination of renal insufficiency and diarrhea. NaHCO3 replacement PO ordered. (3) Secondary hyperparathyroidism: Plan: With 25OH D insufficiency. Start ergocalciferol 76034 units weekly. Calcitriol 0.25 mcg QMWF. (4) Anemia: Plan: Tsat 33. Stable. CHRISTIANA therapy held. GI planning outpatient colonoscopy. (5) Hypokalemia: Plan: GI losses. Additional IV replacement ordered. Monitor magnesium daily. (6) Diarrhea: Plan: Evaluation per hospitalist team and GI. Admission and Anticipated Discharge Date Admission Date: March 22, 2022 Subjective Persistent watery diarrhea and poor appetite persist. Messi reports 7 loose/watery bowel movements yesterday evening and 5 this morning. He denies abdominal pain. He he urgency to move his bowel each time he drinks or eats. No nausea or vomiting. No fluid retention or edema. Review of Systems Review of Systems: All systems reviewed & are unremarkable except as noted in HPI & below Physical Exam Constitutional: well developed and + thin; no acute distress Eyes: + anicteric sclerae; no corneal abnormality ENMT: Mouth: + dry oral mucous membranes; no oral mucosal abnormality Neck: normal visual inspection and trachea midline Respiratory: normal respiratory effort Auscultation: lungs clear to auscultation bilaterally Cardiovascular: Rate/Rhythm: regular rate Heart Sounds: normal S1, normal S2 and + murmur Extremities: no edema Musculoskeletal: Extremities: no cyanosis and no clubbing Skin: + turgor decreased; no jaundice Neurologic: Motor/Sensory: no tremor and no asterixis Psychiatric: Orientation: alert and oriented x 3 Results & Data ([facility]) Vital Signs (Past 12 Hours) Vital Signs Temp Pulse Pulse Pulse Resp BP Pulse Ox 03/26/22 11:30 36.9 C 98 H 17 160/71 H 99 03/26/22 07:00 76 03/26/22 07:48 37.2 C 78 18 137/55 L 99 03/26/22 03:16 37.1 C 77 18 160/80 H 100 O2 Del Method 03/26/22 11:30 Room Air 03/26/22 07:00 03/26/22 07:48 Room Air 03/26/22 03:16 Room Air Laboratory Results Laboratory Results - last 24 hr 03/24/22 03/25/22 03/26/22 15:20 14:12 05:39 PT 23.6 H INR 2.3 H Sodium 141 Potassium 3.2 L Chloride 108 H Carbon Dioxide 21 Anion Gap 12 H BUN 97 H Creatinine 6.99 H* Est Cr Clr Drug Dosing 8.7 Est GFR ( Amer) 7.9 Est GFR (Non-Af Amer) 6.8 BUN/Creatinine Ratio 13.9 Glucose 153 H Calcium 7.6 L Phosphorus 4.8 Magnesium Total Bilirubin AST ALT Alkaline Phosphatase Total Protein Albumin 3.5 Globulin Albumin/Globulin Ratio Stool Fat Screen SEE NOTE 03/26/22 05:39 PT INR Sodium 143 Potassium 3.3 L Chloride 108 H Carbon Dioxide 20 L Anion Gap 15 H BUN 94 H Creatinine 6.89 H* Est Cr Clr Drug Dosing 8.8 Est GFR ( Amer) 8.1 Est GFR (Non-Af Amer) 7.0 BUN/Creatinine Ratio 13.6 Glucose 100 H Calcium 8.3 L Phosphorus Magnesium 1.8 Total Bilirubin 0.6 AST 27 ALT 14 Alkaline Phosphatase 62 Total Protein 6.6 Albumin 3.6 Globulin 3.0 Albumin/Globulin Ratio 1.2 Stool Fat Screen PG Care Time/CCT Total # of Minutes Spent Total Time Spent with Patient: Total time spent is greater than 50% in coordination of care (as documented) at patient's floor/unit and/or counseling patient: Coding Level of Care Code 10675 SUB INP/OBS CARE 3/50MIN Diagnoses Acute kidney injury N17.9 Increased anion gap metabolic acidosis E87.29 Secondary hyperparathyroidism N25.81 Anemia D64.9 Hypokalemia E87.6 Diarrhea R19.7
[2022-03-26] MEDS: LOPERAMIDE HCL 2 MG CAP PO PRN ×2 (15:02→23:37)
[2022-03-26 15:22] LABS: BUN Creatinine Ratio 13.7 (10-20); Calcium 8.2 mg/dl (8.5-10.1); Est GFR (African American) 8.2 ml/min; Est GFR (Non-African American) 7.1 ml/min; Potassium 3.4 mmol/L (3.5-5.1)
[2022-03-26] MEDS: WARFARIN SOD 5 MG TAB PO SCH (15:30)
--- NOTE | 2022-03-26 18:38 | Billing Data ---
Date of Service March 26, 2022 Coding Level of Care Code 73663 SUB INP/OBS CARE
[2022-03-26] MEDS: MIRTAZAPINE TAB 15 MG TAB PO SCH (20:33)
[2022-03-26] MEDS: MELATONIN 3 MG TAB PO SCH (23:37)
[2022-03-27] MEDS: LACTATED RINGER'S 1,000 ML IV SCH ×3 (01:35→17:59)
[2022-03-27 06:38] LABS: Hematocrit (blood only) 23.8 % (42.0-52.0); Hemoglobin 8.3 g/dl (14.0-18.0); Mean Corpuscular Hemoglobin 30.1 pg (25.0-34.0); Mean Corpuscular Hgb Conc 34.9 g/dL (32.0-36.0); Mean Corpuscular Volume 86.2 fL (80.0-100.0); Mean Platelet Volume 11.4 fL (9.4-12.4); Platelet Count 104 K/uL (130-400); RDW Standard Deviation 43.8 fL (36.4-46.3); Red Blood Count 2.76 M/uL (4.70-6.10); White Blood Count 6.62 K/ul (4.8-10.8)
[2022-03-27 06:56] LABS: Albumin Level 3.4 gm/dl (3.4-5.0); Bilirubin,Total 0.5 mg/dl (0.2-1.0); Calcium 8.6 mg/dl (8.5-10.1); Potassium 3.3 mmol/L (3.5-5.1)
[2022-03-27 07:04] LABS: Albumin Globulin Ratio 1.3 (0.9-2); BUN Creatinine Ratio 13.1 (10-20); Creatinine Clr Calc Pharmacy 8.8 ml/min; Est GFR (Non-African American) 6.9 ml/min; Globulin 2.7 gm/dl (2.5-4.0); Total Protein 6.1 gm/dl (6.0-8.3)
--- NOTE | 2022-03-27 07:22 | Hospitalist Progress Note ---
Date of Service March 27, 2022 Assessment & Plan (1) Diarrhea: (2) Acute kidney injury: (3) Atrial fibrillation: (4) Dyslipidemia: (5) Hypertension: (6) S/P AVR (aortic valve replacement): (7) H/O stem cell transplant: (8) Increased anion gap metabolic acidosis: (9) Supratherapeutic INR: (10) Elevated lipase: (11) Knee pain: Plan Messi is a 77 year old male with history of Multiple Myeloma (s/p Stem Cell Transplant), A Fib, mechanical aortic valve, HTN, dyslipidemia, and BPH. Who presented to the hospital with a 6 month history of worsening diarrhea. Patient was admitted to the hospital for acute kidney injury in association with anion gap metabolic acidosis. Pancreatic and renal masses were noted on non-contrast CT scan. Lrsjf-le-[id number] Watery Diarrhea - In context of >6 months of intermittent, non voluminous watery diarrhea - 2 weeks of worsening high-volume watery diarrhea with associated anorexia - ESR 47, CRP 3.25 on arrival; no leukocytosis; lytes largely stable in setting of profound ANDREA - CT-A/P: Evidence of kidney and pancreatic mass requiring further evaluation w/ contrast - Ample hydration will be provided as outlined below - Discontinue Pancreatic Enzymes after meals - Positive Fecal Occult on 03/24. No significant change in hemoglobin. - Continue cholestyramine 4mg, addition of Imodium 2/3 - Given length of time this has been ongoing, will likely need colonoscopy (last >10 years ago per patient) while here or as outpatient (can consider GI consult once studies return) - Biofire and C Diff negative, symptoms not improved on pancreatic enzymes and unrelated to food, less likely malabsorption - Tissue transglutaminase negative - Pending: Stool calproectin, Fecal Fat, Gastrin, 24 Urinary 5-HIAA, VIP level -Diarrhea has improved since yesterday. Reports only 2 episodes of diarrhea over the past 24 hours. ANDREA / Creatinine 6.99. 6.93 on 03/27. No reported history of prior CKD; however, per [facility] notes, 10/2021 labs with Cr 1.7 In the history of worsening watery diarrhea x2 weeks, suspect that ANDREA is secondary to intravascular depletion/dehydration with possible ATN component, likely compounded further by ongoing hydrochlorothiazide therapy No evidence of appreciable electrolyte derangement or findings that would necessitate dialysis at this time Trend labs, gentle electrolyte repletion as necessary Continue LR @ 125 cc/hr Paroxysmal AFib In sinus rhythm on arrival, rate controlled with metoprolol - 03/24, INR stable at 2.1 We will hold warfarin 5 mg given positive fecal occult. INR goal: 2.53.0 Hyperlipidemia Continue statin Hypertension Hold hydrochlorothiazide in setting of profound ANDREA as above Pressures have been stable since arrival;reduced metoprolol dose to 25 mg twice daily for now, increase back to home dose of 50 mg twice daily once acute needs have stabilized AoV Replacement - Stable. On Warfarin. MM s/p Stem Cell Transplant in 2013 - Follows with [facility] -- completed chemotherapy in 2016 - Stable and in-remission. Anion gap metabolic acidosis-- gap acidemia with AG 16 / HCO3 12 In the context of ongoing diarrhea and findings consistent with dehydration Likely more subacute at this point. Lactate 0.7 on admission but this was taken after several bags of fluid had been administered -- suspect this was a component prior, as is uremia. Continue fluid therapy as above, recheck in AM - consider secondary work-up for AGMA if no improvement on serial labs over next several days Supratherapeutic INR - INR 8.5 on arrival - Suspect largely d/t poor PO intake over past several weeks - Hold home warfarin - INR 9.5 Mar 23, administered 5 mg of Vitamin K Oral - Mar 24, INR 2.1, Warfarin 5mg restarted - Mar 26 INR 2.3 Elevated Lipase-at 3000 on admission - Clinically does not appear c/w pancreatitis. Likely contributory from renal insufficiency, ?possibly intestinal inflammation, acidemia - CT-A/P as above, ample hydration Knee pain ddx - patellar tenosynovitis RICE and brace, pain improved Insomnia - Mirtazapine 15 mg at bedtime for sleep, with the goal of a side benefit of improved appetite - addition of 5mg Melatonin 2/3 Code: Full Diet: renal Prophylaxis: Holding warfarin Dispo: MS Consults: Nephro, GI Admission and Anticipated Discharge Date Admission Date: March 22, 2022 Supervising Physician Co-Signing Physician Notes I personally examined the patient and verified all taylor points of history and exam, discussed case, and agree with decision making with Dr Obrien d/w nephro and GI. diarrhea has slowed some. Vitals noted, in general he is awake and alert pleasant no distress. HEENT normocephalic atraumatic mucous membranes moist. Breathing unlabored no accessory muscle use good effort. Skin shows no rashes no pallor or icterus. CBC, basic metabolic panel reviewed. Acute renal failure in the context of acute on what sounds to be chronic diarrheathe most obvious course of events would be diarrhea leading to dehydration leading to ATN. Continue extensive work-up for the etiology of diarrhea. In the meantime, imodium and cholestyramine helping slow bowel throughput some. continue mirtazipine for insomnia and appetite. high risk due to dense slow to improve renal failure driven by ongoing refractory diarrhea and ongoing need for IV management otherwise as above Subjective Patient states that he has doing well today. States that he had 1 bout of di arrhea this morning. He denies any diarrhea overnight. States his last episode of diarrhea was sometime yesterday afternoon. He notes no blood in the stool, says that it is brown and watery. He states that his appetite is good at this time and has no other issues. Review of Systems Review of Systems: All systems reviewed & are unremarkable except as noted in HPI & below Physical Exam Physical Exam: Constitutional: well-appearing, no acute distress HEENT: NCAT, no conjunctival injection CV: regular rhythm, no murmur appreciated, extremities well-perfused, no LE edema Resp: CTABL, no wheezes/rales/rhonchi appreciated, no increased work of breathing GI: soft, nondistended, nontender, BS normoactive MSK: no gross deformities appreciated Skin: warm, dry, no rash appreciated Neuro: alert, oriented, no focal neurologic deficit appreciated Results & Data Results & Data ([facility]) Vital Signs (Past 12 Hours) Vital Signs Temp Pulse Pulse Resp BP Pulse Ox O2 Del Method 03/27/22 07:08 36.7 C 65 18 153/70 H 97 Room Air 03/27/22 03:34 36.6 C 81 17 169/66 H 99 Room Air 03/26/22 23:57 36.5 C 83 16 165/69 H 96 Room Air 03/26/22 22:51 70 03/26/22 20:01 36.6 C 82 17 158/67 H 100 Room Air Resident Activity Tracking Resident Involvement: Resident Care Provided Care Provided: Adult [facility]
[2022-03-27 07:56] LABS: INR 4.6 (0.9-1.1); Prothrombin Time 45.1 Seconds (9.0-12.0)
[2022-03-27] MEDS: METOPROLOL TARTRATE 25 MG TAB PO SCH ×2 (07:59→21:43)
[2022-03-27] MEDS: CHOLECALCIFEROL 1,000 UNITS 25 MCG TAB PO SCH (07:59)
[2022-03-27] MEDS: SIMVASTATIN 20 MG TAB PO SCH (08:00)
[2022-03-27] MEDS: SODIUM BICARBONATE 650 MG TAB PO SCH ×2 (08:57→21:42)
--- NOTE | 2022-03-27 09:15 | Nephrology Progress Note ---
Date of Service March 27, 2022 Assessment & Plan (1) Acute kidney injury: Plan: * Nonoliguric ANDREA due to dehydration/ATN * Remains clinically volume contracted * Continue IV hydration * Monitor PRP * No acute indication for HD today (2) Chronic kidney disease: Plan: * Baseline Cr 1.7 (11/12 [facility] records) (3) Secondary hyperparathyroidism: Plan: * Vitamin D 10, PTH > 800 * Calcitriol 0.25 mcg QMWF has been started (4) Anemia: Plan: * Tsat 33. CHRISTIANA therapy held (5) Diarrhea: Plan: * GI planning outpatient colonoscopy Admission and Anticipated Discharge Date Admission Date: March 22, 2022 Subjective Mr. Londono was evaluated in his hospital room this morning. He reports that his diarrhea is mildly improved. He denies fever, abdominal pain or uremic symptoms Review of Systems Constitutional: no fever Eyes: no problem reported Ear, Nose, Mouth, Throat: no problem reported Respiratory: no dyspnea Cardiovascular: no chest pain Gastrointestinal: + diarrhea/loose stools; no abdominal pain Genitourinary: no dysuria or no difficulty urinating Neurologic: no confusion Physical Exam Constitutional: not in distress Eyes: PERRL, conjunctivae normal, anicteric sclerae ENMT: external ear and nose normal, oropharynx normal Neck: trachea midline, no thyromegaly Respiratory: normal respiratory effort, lungs clear to auscultation Cardiovascular: RRR, no murmur, no edema Gastrointestinal (Abdomen): normal bowel sounds, soft, nontender, no hepatosplenomegaly Neurologic: Speech / Cognition: normal speech and normal cognition Results & Data ([facility]) Vital Signs (Past 12 Hours) Vital Signs Temp Pulse Pulse Resp BP Pulse Ox O2 Del Method 03/27/22 07:08 36.7 C 65 18 153/70 H 97 Room Air 03/27/22 03:34 36.6 C 81 17 169/66 H 99 Room Air 03/26/22 23:57 36.5 C 83 16 165/69 H 96 Room Air 03/26/22 22:51 70 Laboratory Results Laboratory Tests 03/27/22 03/27/22 05:21 05:21 WBC 6.62 Hgb 8.3 L Hct 23.8 L Plt Count 104 L Sodium 143 Potassium 3.3 L Chloride 111 H Carbon Dioxide 21 BUN 91 H Creatinine 6.93 H* Glucose 115 H Total Bilirubin 0.5 AST 25 ALT 13 Alkaline Phosphatase 56 Albumin 3.4 Laboratory Tests 03/22/22 03/22/22 03/22/22 20:50 20:50 20:50 Ur Specific [place] 1.010 Urine Protein 1+ H Urine Glucose (UA) Negative Urine Ketones Negative Urine Blood Trace H Urine Nitrite Negative Ur Leukocyte Esterase Negative Urine RBC (Auto) 0-4 Ur Random Creatinine 71.4 Ur Random Sodium 61 Diagnostic Findings 03/22/[address]: Kidneys: The unenhanced kidneys are normal in size and without hydronephrosis. There are no renal calculi identified. Simple and complex/hyperdense renal cyst measure up to 2.9 cm. A 1.2 cm lesion arising from the right lower pole on image #168 distended criteria for a cyst. PG Care Time/CCT Total # of Minutes Spent Total Time Spent with Patient: Total time spent is greater than 50% in coordination of care (as documented) at patient's floor/unit and/or counseling patient: Coding Level of Care Code 07624 SUB INP/OBS CARE 3/50MIN Diagnoses Acute kidney injury N17.9 Chronic kidney disease N18.9 Secondary hyperparathyroidism N25.81 Anemia D64.9 Diarrhea R19.7
[2022-03-27] MEDS: CHOLESTYRAMINE LIGHT 4 GM PKT PO SCH ×2 (09:50→21:41)
--- NOTE | 2022-03-27 17:10 | Billing Data ---
Date of Service March 27, 2022 Coding Level of Care Code 92377 SUB INP/OBS CARE MIN
--- NOTE | 2022-03-27 20:19 | Ultrasound Report ---
RENAL ULTRASOUND HISTORY: Acute kidney injury ANDREA COMPARISON: CT 03/22/2019 FINDINGS: Right kidney: 9.9 No hydronephrosis. Increased echogenicity of the parenchyma. Right renal cysts miguel ure up to 3.2 cm. Normal corticomedullary differentiation and cortical thickness. Left kidney: 10.4 No hydronephrosis. Increased echogenicity of the parenchyma. Left renal cysts measu re up to 1.4 cm. Normal corticomedullary differentiation and cortical thickness. Bladder: No bladder wall thickening. The bilateral ureteral jets were identified. Prostamegaly. IMPRESSION: 1. No renal calculi or hydronephrosis. 2. Chronic medical renal disease. 3. Simple renal cysts. 4. Prostamegaly. ACT 112: Negative or not required by law. Electronically signed by: Archie Moore M.D. 03/27/2022 8:18 PM
[2022-03-27] MEDS: MELATONIN 3 MG TAB PO SCH (21:41)
[2022-03-27] MEDS: MIRTAZAPINE TAB 15 MG TAB PO SCH (21:42)
[2022-03-28] MEDS: LACTATED RINGER'S 1,000 ML IV SCH ×4 (02:07→22:48)
[2022-03-28 06:53] LABS: Hematocrit (blood only) 26.2 % (42.0-52.0); Hemoglobin 8.9 g/dl (14.0-18.0); Mean Corpuscular Hemoglobin 30.2 pg (25.0-34.0); Mean Corpuscular Volume 88.8 fL (80.0-100.0); Mean Platelet Volume 11.4 fL (9.4-12.4); Platelet Count 127 K/uL (130-400); RDW Standard Deviation 45.2 fL (36.4-46.3); Red Blood Count 2.95 M/uL (4.70-6.10); White Blood Count 6.98 K/ul (4.8-10.8)
--- NOTE | 2022-03-28 06:55 | Hospitalist Progress Note ---
Date of Service March 28, 2022 Assessment & Plan (1) Diarrhea: (2) Acute kidney injury: (3) Atrial fibrillation: (4) Dyslipidemia: (5) Hypertension: (6) S/P AVR (aortic valve replacement): (7) H/O stem cell transplant: (8) Increased anion gap metabolic acidosis: (9) Supratherapeutic INR: (10) Elevated lipase: (11) Knee pain: Plan Messi is a 77 year old male with history of Multiple Myeloma (s/p Stem Cell Transplant), A Fib, mechanical aortic valve, HTN, dyslipidemia, and BPH. Who presented to the hospital with a 6 month history of worsening diarrhea. Patient was admitted to the hospital for acute kidney injury in association with anion gap metabolic acidosis. Pancreatic and renal masses were noted on non-contrast CT scan. [id number]-Yqdyijb Watery Diarrhea - In context of >6 months of intermittent, non voluminous watery diarrhea - 2 weeks of worsening high-volume watery diarrhea with associated anorexia - ESR 47, CRP 3.25 on arrival; no leukocytosis; lytes largely stable in setting of profound ANDREA - CT-A/P: Evidence of kidney and pancreatic mass requiring further evaluation w/ contrast - Ample hydration will be provided as outlined below - Discontinue Pancreatic Enzymes after meals - Positive Fecal Occult on 03/24. No significant change in hemoglobin. - Continue cholestyramine 4mg, addition of Imodium 2/3 - Given length of time this has been ongoing, will likely need colonoscopy (last >10 years ago per patient) while here or as outpatient (can consider GI consult once studies return) - Biofire and C Diff negative, symptoms not improved on pancreatic enzymes and unrelated to food, less likely malabsorption - Tissue transglutaminase negative - Pending: Stool calproectin, Fecal Fat, Gastrin, 24 Urinary 5-HIAA, VIP level -Diarrhea has improved since yesterday. Reports only 2 episodes of diarrhea over the past 24 hours. Anemia Epogen 10,000 units given once on 03/28. ANDREA 03/25 Creatinine 6.99. 6.93 on 03/27. No reported history of prior CKD; however, per [facility] [place], 10/20[place] labs with Cr 1.7 In the history of worsening watery diarrhea x2 weeks, suspect that ANDREA is secondary to intravascular depletion/dehydration with possible ATN component, likely compounded further by ongoing hydrochlorothiazide therapy No evidence of appreciable electrolyte derangement or findings that would necessitate dialysis at this time Trend labs, gentle electrolyte repletion as necessary Continue LR @ 125 cc/hr Paroxysmal AFib In sinus rhythm on arrival, rate controlled with metoprolol - 03/24, INR stable at 2.1 Patient was restarted on warfarin 5 mg once a day on 03/25. And received 2 days of warfarin. INR was 6.8 on 03/28. We will hold warfarin at this time. Of note looked at patient's meds. And special instructions states that he takes 5 mg on Tuesday, Tuesday, Tuesday, and Tuesday. He takes 2.5 mg on Tuesday, , and Tuesday. Takes nightly. Patient's increase in INR on 03/28 most likely due to restarting warfarin and patient having poor p.o. intake of vitamin K. Patient is able to tolerate eating at this time though was having poor p.o. intake for a while due to having diarrhea for a month time. INR goal: 2.53.0 Hyperlipidemia Continue statin Hypertension Hold hydrochlorothiazide in setting of profound ANDRAE as above Pressures have been stable since arrival;reduced metoprolol dose to 25 mg twice daily for now, increase back to home dose of 50 mg twice daily once acute needs have stabilized AoV Replacement - Stable. Holding warfarin due to elevated INR on 03/28. MM s/p Stem Cell Transplant in 2013 - Follows with [facility] -- completed chemotherapy in 2015 - Stable and in-remission. Anion gap metabolic acidosis-- gap acidemia with AG 16 / HCO3 12 In the context of ongoing diarrhea and findings consistent with dehydration Likely more subacute at this point. Lactate 0.7 on admission but this was taken after several bags of fluid had been administered -- suspect this was a component prior, as is uremia. Continue fluid therapy as above, recheck in AM - consider secondary work-up for AGMA if no improvement on serial labs over next several days Supratherapeutic INR - INR 8.5 on arrival - Suspect largely d/t poor PO intake over past several weeks - Hold home warfarin - INR 9.5 Mar 23, administered 5 mg of Vitamin K Oral - Mar 24, INR 2.1, Warfarin 5mg restarted - Mar 26 INR 2.3 March 28 INR of 6.8. See above. Holding warfarin at this time. Elevated Lipase-at 3000 on admission - Clinically does not appear c/w pancreatitis. Likely contributory from renal insufficiency, ?possibly intestinal inflammation, acidemia - CT-A/P as above, ample hydration Knee pain ddx - patellar tenosynovitis RICE and brace, pain improved Insomnia - Mirtazapine 15 mg at bedtime for sleep, with the goal of a side benefit of improved appetite - addition of 5mg Melatonin 2/3 Code: Full Diet: renal Prophylaxis: Holding warfarin Dispo: MS Consults: Nephro, GI Admission and Anticipated Discharge Date Admission Date: March 22, 2022 Supervising Physician Co-Signing Physician Notes I personally examined the patient and verified all taylor points of history and exam, discussed case, and agree with decision making with Dr Obrien diarrhea slowed some. eating better. Vitals noted, in general he is awake and alert pleasant no distress. HEENT normocephalic atraumatic mucous membranes moist. Breathing unlabored no accessory muscle use good effort. Skin shows no rashes no pallor or icterus. CBC, basic metabolic panel reviewed. Acute renal failure in the context of acute on what sounds to be chronic diarrheathe most obvious course of events would be diarrhea leading to dehydration leading to ATN. Continue extensive work-up for the etiology of diarrhea. GI input appreciated. In the meantime, imodium and cholestyramine helping slow bowel throughput some. continue mirtazipine for insomnia and appetite. high risk due to dense slow to improve renal failure driven by ongoing refractory diarrhea and ongoing need for IV management, fortunately showing some renal improvement otherwise as above Subjective Patient was seen bedside this AM. States that he had 1-2 episodes of diarrhea this morning and about 3-4 episodes of diarrhea over the past 24 hours. He denies any fever, chills, abdominal pain. Does state that he is urinating a lot. Overall he states that he is feeling better than yesterday and feeling well. He is able to tolerate food well and has been eating more. Review of Systems Review of Systems: All systems reviewed & are unremarkable except as noted in HPI & below Physical Exam Physical Exam: Constitutional: well-appearing, no acute distress HEENT: NCAT, no conjunctival injection CV: regular rhythm, no murmur appreciated, extremities well-perfused, no LE edema Resp: CTABL, no wheezes/rales/rhonchi appreciated, no increased work of breathing GI: soft, nondistended, nontender, BS normoactive MSK: no gross deformities appreciated Skin: warm, dry, no rash appreciated Neuro: alert, oriented, no focal neurologic deficit appreciated Results & Data Results & Data ([facility]) Vital Signs (Past 12 Hours) Vital Signs Temp Pulse Resp BP Pulse Ox O2 Del Method 03/27/22 21:34 36.5 C 83 16 168/78 H 97 Room Air Resident Activity Tracking Resident Involvement: Resident Care Provided Care Provided: Adult Hospital Medicine
[2022-03-28 07:20] LABS: Prothrombin Time 65.1 Seconds (9.0-12.0)
[2022-03-28 07:26] LABS: Albumin Globulin Ratio 1.2 (0.9-2); Albumin Level 3.6 gm/dl (3.4-5.0); BUN Creatinine Ratio 12.8 (10-20); Bilirubin,Total 0.5 mg/dl (0.2-1.0); Calcium 9.1 mg/dl (8.5-10.1); Creatinine Clr Calc Pharmacy 9.5 ml/min; Est GFR (African American) 8.8 ml/min; Est GFR (Non-African American) 7.6 ml/min; Globulin 3.1 gm/dl (2.5-4.0); Potassium 3.6 mmol/L (3.5-5.1); Total Protein 6.7 gm/dl (6.0-8.3)
[2022-03-28 07:42] LABS: INR 6.8 (0.9-1.1)
[2022-03-28] MEDS: METOPROLOL TARTRATE 25 MG TAB PO SCH ×2 (08:12→20:37)
[2022-03-28] MEDS: SIMVASTATIN 20 MG TAB PO SCH (08:12)
[2022-03-28] MEDS: CHOLECALCIFEROL 1,000 UNITS 25 MCG TAB PO SCH (08:12)
[2022-03-28] MEDS: SODIUM BICARBONATE 650 MG TAB PO SCH ×2 (08:13→20:37)
--- NOTE | 2022-03-28 09:01 | Nephrology Progress Note ---
Date of Service March 28, 2022 Assessment & Plan (1) Acute kidney injury: Plan: * Nonoliguric ANDREA due to dehydration/ATN * Cr has improved from 6.9-->6.3 * Volume status and electrolyte balance remain acceptable. No acute indication for HD today * Continue IV hydration * Monitor PRP, UO (2) Chronic kidney disease: Plan: * Baseline Cr 1.7 (11/12 [facility] records) (3) Secondary hyperparathyroidism: Plan: * Vitamin D 10, PTH > 800 * Calcitriol 0.25 mcg QMWF has been started (4) Anemia: Plan: * Tsat 33 * Will provide Epogen 10,000 units SQ x 1 today (5) Diarrhea: Plan: * GI planning outpatient colonoscopy Admission and Anticipated Discharge Date Admission Date: March 22, 2022 Subjective Mr. Londono was evaluated in his hospital room this morning. He reports one episode of watery diarrhea this morning. He denied fever, abdominal pain or uremic symptoms. Mr. Londono reports that he is tolerating IV hydration without dyspnea or leg swelling Review of Systems Constitutional: no fever Eyes: no problem reported Ear, Nose, Mouth, Throat: no problem reported Respiratory: no dyspnea Cardiovascular: no chest pain Gastrointestinal: + diarrhea/loose stools; no abdominal pain Genitourinary: no dysuria or no difficulty urinating Neurologic: no confusion Physical Exam Constitutional: not in distress Eyes: PERRL, conjunctivae normal, anicteric sclerae ENMT: external ear and nose normal, oropharynx normal Neck: trachea midline, no thyromegaly Respiratory: normal respiratory effort, lungs clear to auscultation Cardiovascular: RRR, no murmur, no edema Gastrointestinal (Abdomen): normal bowel sounds, soft, nontender, no hepatosplenomegaly Neurologic: Speech / Cognition: normal speech and normal cognition Results & Data ([facility]) Vital Signs (Past 12 Hours) Vital Signs Temp Pulse Resp BP Pulse Ox O2 Del Method 03/28/22 07:11 36.6 C 76 16 167/77 H 99 Room Air 03/27/22 21:34 36.5 C 83 16 168/78 H 97 Room Air Laboratory Results Laboratory Tests 03/28/22 03/28/22 05:36 05:36 WBC 6.98 Hgb 8.9 L Hct 26.2 L Plt Count 127 L Sodium 145 Potassium 3.6 Chloride 112 H Carbon Dioxide 22 BUN 82 H Creatinine 6.39 H* D Glucose 126 H PG Care Time/CCT Total # of Minutes Spent Total Time Spent with Patient: Total time spent is greater than 50% in coordination of care (as documented) at patient's floor/unit and/or counseling patient: Coding Level of Care Code 36036 SUB INP/OBS CARE 3/50MIN Diagnoses Acute kidney injury N17.9 Chronic kidney disease N18.9 Secondary hyperparathyroidism N25.81 Anemia D64.9 Diarrhea R19.7
[2022-03-28] MEDS: CHOLESTYRAMINE LIGHT 4 GM PKT PO SCH ×2 (10:17→22:47)
[2022-03-28] MEDS: ACETAMINOPHEN 325 MG TAB PO PRN (10:18)
[2022-03-28] MEDS ORDERED: EPOETIN ALFA 10,000 UNITS/ML VIAL SQ ONE (12:00)
--- NOTE | 2022-03-28 12:51 | Communication Note ---
Date of Service: March 28, 2022 GI brief note TTG igA negative, await fecal calprotectin, CRP was elevated but most stool testing has been normal as well as TSH, gastrin. His diarrhea has improved with cholestyramine, only 2-3 episodes yesterday was 5 before, none today. enteritis on previous CT recs: continue current tx including cholestyramine BID should symptoms worsen or persist consider CT enterography if possible Buddy Wilde MD Gastroenterology
--- NOTE | 2022-03-28 14:42 | Billing Data ---
Date of Service March 28, 2022 Coding Level of Care Code 79906 SUB INP/OBS CARE MIN
[2022-03-28] MEDS: MELATONIN 3 MG TAB PO SCH (20:37)
[2022-03-28] MEDS: MIRTAZAPINE TAB 15 MG TAB PO SCH (20:38)
[2022-03-28] MEDS ORDERED: COUGH DROP (SUGAR FREE) LOZ 24 LOZ/1 BOX BUCCAL PRN (22:52)
[2022-03-29] MEDS: LACTATED RINGER'S 1,000 ML IV SCH ×3 (05:47→22:49)
--- NOTE | 2022-03-29 07:21 | Hospitalist Progress Note ---
Date of Service March 29, 2022 Assessment & Plan (1) Diarrhea: (2) Acute kidney injury: (3) Atrial fibrillation: (4) Dyslipidemia: (5) Hypertension: (6) S/P AVR (aortic valve replacement): (7) H/O stem cell transplant: (8) Increased anion gap metabolic acidosis: (9) Supratherapeutic INR: (10) Elevated lipase: (11) Knee pain: Plan Messi is a 77 year old male with history of Multiple Myeloma (s/p Stem Cell Transplant), A Fib, mechanical aortic valve, HTN, dyslipidemia, and BPH. Who presented to the hospital with a 6 month history of worsening diarrhea. Patient was admitted to the hospital for acute kidney injury in association with anion gap metabolic acidosis. Pancreatic and renal masses were noted on non-contrast CT scan. [id number] Watery Diarrhea - In context of >6 months of intermittent, non voluminous watery diarrhea - 2 weeks of worsening high-volume watery diarrhea with associated anorexia - ESR 47, CRP 3.25 on arrival; no leukocytosis; lytes largely stable in setting of profound ANDREA - CT-A/P: Evidence of kidney and pancreatic mass requiring further evaluation w/ contrast - Ample hydration will be provided as outlined below - Discontinue Pancreatic Enzymes after meals - Positive Fecal Occult on 03/24. No significant change in hemoglobin. - Continue cholestyramine 4mg, addition of Imodium 2/3 - Given length of time this has been ongoing, will likely need colonoscopy (last >10 years ago per patient) while here or as outpatient (can consider GI consult once studies return) - Biofire and C Diff negative, symptoms not improved on pancreatic enzymes and unrelated to food, less likely malabsorption - Tissue transglutaminase negative - Pending: Stool calproectin, Fecal Fat, Gastrin, 24 Urinary 5-HIAA, VIP level -Diarrhea has improved since yesterday. Reports only 2 episodes of diarrhea over the past 24 hours. Anemia Epogen 10,000 units given once on 03/28. ANDREA 03/25 Creatinine 6.99. 6.93 on 03/27. No reported history of prior CKD; however, [place] [facility] [place] labs with Cr 1.7 In the history of worsening watery diarrhea x2 weeks, suspect that ANDREA is secondary to intravascular depletion/dehydration with possible ATN component, likely compounded further by ongoing hydrochlorothiazide therapy No evidence of appreciable electrolyte derangement or findings that would necessitate dialysis at this time Trend labs, gentle electrolyte repletion as necessary Continue LR @ 125 cc/hr Paroxysmal AFib In sinus rhythm on arrival, rate controlled with metoprolol - 03/24, INR stable at 2.1 Patient was restarted on warfarin 5 mg once a day on 03/25. And received 2 days of warfarin. INR was 6.8 on 03/28. We will hold warfarin at this time. Of note looked at patient's meds. And special instructions states that he takes 5 mg on Tuesday, Tuesday, Tuesday, and Tuesday. He takes 2.5 mg on Tuesday, , and Tuesday. Takes nightly. Patient's increase in INR on 03/28 most likely due to restarting warfarin and patient having poor p.o. intake of vitamin K. Patient is able to tolerate eating at this time though was having poor p.o. intake for a while due to having diarrhea for a month time. INR goal: 2.53.0 Hyperlipidemia Continue statin Hypertension Hold hydrochlorothiazide in setting of profound ANDREA as above Pressures have been stable since arrival;reduced metoprolol dose to 25 mg twice daily for now, increase back to home dose of 50 mg twice daily once acute needs have stabilized AoV Replacement - Stable. Holding warfarin due to elevated INR on 03/28. MM s/p Stem Cell Transplant in 2013 - Follows with [facility] -- completed chemotherapy in 2015 - Stable and in-remission. Anion gap metabolic acidosis-- gap acidemia with AG 16 / HCO3 12 In the context of ongoing diarrhea and findings consistent with dehydration Likely more subacute at this point. Lactate 0.7 on admission but this was taken after several bags of fluid had been administered -- suspect this was a component prior, as is uremia. Continue fluid therapy as above, recheck in AM - consider secondary work-up for AGMA if no improvement on serial labs over next several days Supratherapeutic INR - INR 8.5 on arrival - Suspect largely d/t poor PO intake over past several weeks - Hold home warfarin - INR 9.5 Mar 23, administered 5 mg of Vitamin K Oral - Mar 24, INR 2.1, Warfarin 5mg restarted - Mar 26 INR 2.3 March 28 INR of 6.8. See above. Holding warfarin at this time. Elevated Lipase-at 3000 on admission - Clinically does not appear c/w pancreatitis. Likely contributory from renal insufficiency, ?possibly intestinal inflammation, acidemia - CT-A/P as above, ample hydration Knee pain ddx - patellar tenosynovitis RICE and brace, pain improved Insomnia - Mirtazapine 15 mg at bedtime for sleep, with the goal of a side benefit of improved appetite - addition of 5mg Melatonin 2/3 Code: Full Diet: renal Prophylaxis: Holding warfarin Dispo: MS Consults: Nephro, GI Admission and Anticipated Discharge Date Admission Date: March 22, 2022 Results & Data Results & [facility] ([facility]) Vital Signs (Past 12 Hours) Vital Signs Temp Pulse Pulse Resp BP Pulse Ox O2 Del Method 03/28/22 21:28 36.5 C 71 18 163/67 H 97 Room Air 03/28/22 20:36 82 179/88 H
[2022-03-29] MEDS: CHOLECALCIFEROL 1,000 UNITS 25 MCG TAB PO SCH (08:04)
[2022-03-29] MEDS: METOPROLOL TARTRATE 25 MG TAB PO SCH ×2 (08:04→20:02)
[2022-03-29] MEDS: SIMVASTATIN 20 MG TAB PO SCH (08:04)
[2022-03-29] MEDS: SODIUM BICARBONATE 650 MG TAB PO SCH ×2 (08:07→20:02)
[2022-03-29 08:49] LABS: Hematocrit (blood only) 24.5 % (42.0-52.0); Hemoglobin 8.3 g/dl (14.0-18.0); Mean Corpuscular Hgb Conc 33.9 g/dL (32.0-36.0); Mean Corpuscular Volume 88.4 fL (80.0-100.0); Mean Platelet Volume 11.2 fL (9.4-12.4); Platelet Count 116 K/uL (130-400); RDW Coefficient of Variation 13.8 % (11.5-14.5); RDW Standard Deviation 45.1 fL (36.4-46.3); Red Blood Count 2.77 M/uL (4.70-6.10); White Blood Count 6.06 K/ul (4.8-10.8)
--- NOTE | 2022-03-29 09:02 | Nephrology Progress Note ---
Date of Service March 29, 2022 Assessment & Plan (1) Acute kidney injury: Plan: * Presented w/ 2 week h/o diarrhea (5-6 liquid BM/day), ANDREA (Cr 8.5), elevated lipase and supratherapeutic INR. Has h/o multiple myeloma s/p autologous SCT. 03/23/22 enteric biofire was negative, C. Difficile testing was negative. 03/27/22 renal US was negative for hydronephrosis * Nonoliguric ANDREA due to dehydration/ATN. Was on HCTZ at the time of admission * Kidney function has worsened overnight * Although I&O record shows net + 21 L, patient continues to have voluminous diarrhea and free water loss. Volume status and electrolyte balance remain acceptable. No acute indication for HD today * Continue IV hydration * Supplementation of Mg, KCl as per primary service * Monitor PRP, UO (2) Chronic kidney disease: Plan: * Baseline Cr 1.7 (11/12 [facility] [place] (3) Secondary hyperparathyroidism: Plan: * Vitamin D 10, PTH > 800 * Calcitriol 0.25 mcg QMWF has been started (4) Anemia: Plan: * Tsat 33 * Epogen 10,000 units SQ administered 03/28/22 (5) Diarrhea: Plan: * On Cholestyramine. Await further GI evaluation. May need CT enterography Admission and Anticipated Discharge Date Admission Date: March 22, 2022 Subjective Mr. Londono was evaluated in his hospital room this morning. He reports continued watery diarrhea with two bowel movements daily. He denied fever, abdominal pain or uremic symptoms. Mr. Londono reports that he is tolerating IV hydration without dyspnea or leg swelling Review of Systems Constitutional: no fever Eyes: no problem reported Ear, Nose, Mouth, Throat: no problem reported Respiratory: no dyspnea Cardiovascular: no chest pain Gastrointestinal: + diarrhea/loose stools; no abdominal pain Genitourinary: no dysuria or no difficulty urinating Neurologic: no confusion Physical Exam Constitutional: not in distress Eyes: PERRL, conjunctivae normal, anicteric sclerae ENMT: external ear and nose normal, oropharynx normal Neck: trachea midline, no thyromegaly Respiratory: normal respiratory effort, lungs clear to auscultation Cardiovascular: RRR, no murmur, no edema Gastrointestinal (Abdomen): normal bowel sounds, soft, nontender, no hepatosplenomegaly Neurologic: Speech / Cognition: normal speech and normal cognition Results & Data ([facility]) Vital Signs (Past 12 Hours) Vital Signs Temp Pulse Pulse Resp BP BP Pulse Ox 03/29/22 08:02 36.7 C 75 16 165/65 H 97 03/28/22 21:28 36.5 C 71 18 163/67 H 97 O2 Del Method 03/29/22 08:02 Room Air 03/28/22 21:28 Room Air Laboratory Results Laboratory Tests 03/29/22 03/29/22 03/29/22 08:15 08:15 08:15 WBC 6.06 Hgb 8.3 L Hct 24.5 L Plt Count 116 L Sodium 146 H Potassium 3.3 L Chloride 113 H Carbon Dioxide 21 BUN 83 H Creatinine 6.90 H* D Glucose 108 H Magnesium 1.4 L PG Care Time/CCT Total # of Minutes Spent Total Time Spent with Patient: Total time spent is greater than 50% in coordination of care (as documented) at patient's floor/unit and/or counseling patient: Coding Level of Care Code 30419 SUB INP/OBS CARE 3/50MIN Diagnoses Acute kidney injury N17.9 Chronic kidney disease N18.9 Secondary hyperparathyroidism N25.81 Anemia D64.9 Diarrhea R19.7
--- NOTE | 2022-03-29 09:48 | Hospitalist Progress Note ---
Date of Service March 29, 2022 Assessment & Plan (1) Diarrhea: (2) Acute kidney injury: (3) Atrial fibrillation: (4) Dyslipidemia: (5) Hypertension: (6) S/P AVR (aortic valve replacement): (7) H/O stem cell transplant: (8) Increased anion gap metabolic acidosis: (9) Supratherapeutic INR: (10) Elevated lipase: (11) Knee pain: Plan Messi is a 77 year old male with history of Multiple Myeloma (s/p Stem Cell Transplant), A Fib, mechanical aortic valve, HTN, dyslipidemia, and BPH. Who presented to the hospital with a 6 month history of worsening diarrhea. Patient was admitted to the hospital for acute kidney injury in association with anion gap metabolic acidosis. Pancreatic and renal masses were noted on non-contrast CT scan. [id number] Watery Diarrhea - Diarrhea improving off of anti-diarrheals. Etiology still unknown. Outpatient colonoscopy anticipated. - In context of >6 months of intermittent, non voluminous watery diarrhea - 2 weeks of worsening high-volume watery diarrhea with associated anorexia - ESR 47, CRP 3.25 on arrival; no leukocytosis; lytes largely stable in setting of profound ANDREA - CT-A/P: Evidence of kidney and pancreatic mass requiring further evaluation w/ contrast - Ample hydration will be provided as outlined below - Discontinue Pancreatic Enzymes after meals - Continue cholestyramine 4mg, addition of Imodium 2/3 - Given length of time this has been ongoing, will likely need colonoscopy (last >10 years ago per patient) while here or as outpatient (can consider GI consult once studies return) - Biofire and C Diff negative, symptoms not improved on pancreatic enzymes and unrelated to food, less likely malabsorption - Pending: Stool calproectin, Fecal Fat, Gastrin, Tissue transglutaminase, 24 Urinary 5-HIAA, VIP level - Positive Fecal Occult, we appreciate GI's expertise ANDREA - Etiology includes poor oral fluid intake exacerbated by acute on chronic diarrhea. - 2/6 Creatinine 6.90, sodium elevated at 146 No reported history of prior CKD; however, per [facility] [place], 10/2021 labs with Cr 1.7 In the history of worsening watery diarrhea x2 weeks, suspect that ANDREA is secondary to intravascular depletion/dehydration with possible ATN component, likely compounded further by ongoing hydrochlorothiazide therapy No evidence of appreciable electrolyte derangement or findings that would necessitate dialysis at this time Trend labs, gentle electrolyte repletion as necessary --- Continue LR @ 125 cc/hr Paroxysmal AFib In sinus rhythm on arrival, rate controlled with metoprolol - 03/24, INR stable at 2.1 Restarted Warfarin 5mg INR goal: 2.53.0 Hyperlipidemia Continue statin Hypertension Hold hydrochlorothiazide in setting of profound ANDREA as above Pressures have been stable since arrival;reduced metoprolol dose to 25 mg twice daily for now, increase back to home dose of 50 mg twice daily once acute needs have stabilized AoV Replacement - Stable. On Warfarin. MM s/p Stem Cell Transplant in 2013 - Follows with [facility] -- completed chemotherapy in 2016 - Stable and in-remission. Anion gap metabolic acidosis-- gap acidemia with AG 16 / HCO3 12 In the context of ongoing diarrhea and findings consistent with dehydration Likely more subacute at this point. Lactate 0.7 on admission but this was taken after several bags of fluid had been administered -- suspect this was a component prior, as is uremia. Continue fluid therapy as above, recheck in AM -- consider secondary work-up for AGMA if no improvement on serial labs over next several days Supratherapeutic INR - INR 8.5 on arrival - Suspect largely d/t poor PO intake over past several weeks - Hold home warfarin - INR 9.5 Mar 23, administered 5 mg of Vitamin K Oral - Mar 24, INR 2.1, Warfarin 5mg restarted - Mar 26 INR 2.3 - Mar 29 INR 6.9, Warfarin held Elevated Lipase-at 3000 on admission - Clinically does not appear c/w pancreatitis. Likely contributory from renal insufficiency, ?possibly intestinal inflammation, acidemia - CT-A/P as above, ample hydration Knee pain ddx - patellar tenosynovitis Deandre, pain improved Insomnia - Mirtazapine 15 mg at bedtime for sleep, with the goal of a side benefit of improved appetite - addition of 5mg Melatonin 03/26 Anemia - Epogen 10,000 units SQ x 1 on 03/28 - 03/29: Hgb 8.3, HCT 24.5 Code: Full Diet: renal Prophylaxis: Warfarin therapy Dispo: MS Consults: Nephro, GI Admission and Anticipated Discharge Date Admission Date: March 22, 2022 Supervising Physician Co-Signing Physician Notes Medical Student Supervision Note: I was personally present during medical student patient encounter and independently interviewed and examined the patient and verified the taylor history and physical, reviewed labs and image studies, discussed the case with Nadia Borrero and agree with the findings and care plan. continues to have diarrhea but also at times has the urge with no BM today. o/e - comfortable. abd - soft, NT/ND ANDREA - secondary to profuse watery diarrhea. continue IV fluid repletion. nephro following Profuse diarrhea - negative work up so far. more lab tests pending. cholestyramine and imodium. plan for outpatient colonoscopy supratherapeutic INR - hold warfarin. follow. Kimberly Bry is a 77 year old male with a PMH of multiple myeloma (s/p chemotherapy 2015), aortic valve replacement 1997, HTN, dyslipidemia admitted for prerenal ANDREA/ATN following a 6-8 history of diarrhea that worsened in severity and frequency over the last 2 weeks with decreased PO intake. He had 2 episodes of diarrhea yesterday and one this morning but feels stools are beginning to solidify without medications. Frequency has decreased since starting Choles tyramine + Immodium. He has been eating more, and we discussed introducing some outside foods his can bring. He did not sleep well last night. Knee pain is significantly improved. Has a moderate appetite. In the afternoon he had concerns of urinary retention and increased episodes of diarrhea. Review of Systems Review of Systems: See HPI Physical Exam Constitutional: well developed and + thin; no acute distress Eyes: + anicteric sclerae; no corneal abnormality ENMT: Mouth: + dry oral mucous membranes; no oral mucosal abnormality Neck: normal visual inspection and trachea midline Respiratory: normal respiratory effort Auscultation: lungs clear to auscultation bilaterally Cardiovascular: Rate/Rhythm: regular rate Heart Sounds: normal S1 and normal S2 Extremities: no edema Gastrointestinal (Abdomen): normal bowel sounds, soft, nontender, no hepatosplenomegaly Musculoskeletal: Extremities: no cyanosis (Left knee wrapped) and no clubbing Skin: + turgor decreased; no jaundice Neurologic: Motor/Sensory: no tremor and no asterixis Psychiatric: Orientation: alert and oriented x 3 Results & Data Results & Data ([facility]) Vital Signs (Past 12 Hours) Vital Signs Temp Pulse Resp BP Pulse Ox O2 Del Method 03/29/22 08:02 36.7 C 75 16 165/65 H 97 Room Air
[2022-03-29 09:58] LABS: Calcium 8.9 mg/dl (8.5-10.1); Creatinine Clr Calc Pharmacy 8.8 ml/min; Est GFR (African American) 8.1 ml/min; Est GFR (Non-African American) 6.9 ml/min; Potassium 3.3 mmol/L (3.5-5.1)
[2022-03-29] MEDS ORDERED: POTASSIUM CHLORIDE CRTAB 20 MEQ TABCR PO STA (10:09)
[2022-03-29 10:10] LABS: INR 6.8 (0.9-1.1)
[2022-03-29] MEDS: CALCITRIOL 0.25 MCG CAPSULE PO SCH (11:10)
[2022-03-29] MEDS: MAGNESIUM SULFATE / D5W 1 GM/100 ML BAG IV SCH ×4 (11:12→18:35)
[2022-03-29] MEDS: CHOLESTYRAMINE LIGHT 4 GM PKT PO SCH ×2 (11:16→21:57)
[2022-03-29] MEDS: LOPERAMIDE HCL 2 MG CAP PO PRN (15:02)
[2022-03-29 19:44] LABS: Appearance Urine Clear (Clear); Bacteria Urine Automated Negative (Negative); Bilirubin Urine Negative (Negative); Blood Urine 3+ (Negative); Cast Urine Automated 0 /lpf (0-5); Color Urine Yellow; Epithelial Cell Urine Auto 0-5 /lpf (0-5); Glucose Urine UA Trace (Negative); Ketones Urine Negative (Negative); Leukocyte Esterase Urine Negative (Negative); Nitrite Urine Negative (Negative); Protein Urine 1+ (Negative); Urobilinogen Urine Negative (Negative); pH Urine 5.5 (4.5-7.5)
[2022-03-29] MEDS: MIRTAZAPINE TAB 15 MG TAB PO SCH (20:02)
[2022-03-29] MEDS: MELATONIN 3 MG TAB PO SCH (20:02)
[2022-03-29] MEDS: ACETAMINOPHEN 325 MG TAB PO PRN (20:20)
[2022-03-30] MEDS: LACTATED RINGER'S 1,000 ML IV SCH (05:54)
[2022-03-30 08:48] LABS: Hematocrit (blood only) 24.3 % (42.0-52.0); Hemoglobin 8.1 g/dl (14.0-18.0); Mean Corpuscular Hemoglobin 30.1 pg (25.0-34.0); Mean Corpuscular Hgb Conc 33.3 g/dL (32.0-36.0); Mean Corpuscular Volume 90.3 fL (80.0-100.0); Mean Platelet Volume 11.4 fL (9.4-12.4); Platelet Count 119 K/uL (130-400); RDW Standard Deviation 45.3 fL (36.4-46.3); Red Blood Count 2.69 M/uL (4.70-6.10); White Blood Count 6.98 K/ul (4.8-10.8)
--- NOTE | 2022-03-30 08:59 | Nephrology Progress Note ---
Date of Service March 30, 2022 Assessment & Plan (1) Acute kidney injury: Plan: * Presented w/ 2 week h/o diarrhea (5-6 liquid BM/day), ANDREA (Cr 8.5), elevated lipase and supratherapeutic INR. Has h/o multiple myeloma s/p autologous SCT. 03/23/22 enteric biofire was negative, C. Difficile testing was negative. 03/27/22 renal US was negative for hydronephrosis * Nonoliguric ANDREA due to dehydration/ATN. Was on HCTZ at the time of admission * Renal recovery stalled. However, patient has had difficulty voiding and underwent Chandler catheter insertion * Volume status remains acceptable. No acute indication for HD today * Will change IVF to 0.45 NS to help correct mild hypernatremia * Monitor PRP, UO (2) Chronic kidney disease: Plan: * Baseline Cr 1.7 (11/12 [facility] [place] (3) Secondary hyperparathyroidism: Plan: * Vitamin D 10, PTH > 800 * Calcitriol 0.25 mcg QMWF has been started (4) Anemia: Plan: * Tsat 33 * Epogen 10,000 units SQ administered 03/28/22 (5) Diarrhea: Plan: * On Cholestyramine. Await further GI evaluation. May need CT enterography Admission and Anticipated Discharge Date Admission Date: March 22, 2022 Subjective Mr. Londono was evaluated in his hospital room this morning. He reports that his diarrhea has improved but he developed difficulty voiding last night. He then underwent Chandler catheter insertion and is now subjectively improved Review of Systems Constitutional: no fever Eyes: no problem reported Ear, Nose, Mouth, Throat: no problem reported Respiratory: no dyspnea Cardiovascular: no chest pain Gastrointestinal: + diarrhea/loose stools; no abdominal pain Genitourinary: no dysuria or no difficulty urinating Neurologic: no confusion Physical Exam Constitutional: not in distress Eyes: PERRL, conjunctivae normal, anicteric sclerae ENMT: external ear and nose normal, oropharynx normal Neck: trachea midline, no thyromegaly Respiratory: normal respiratory effort, lungs clear to auscultation Cardiovascular: RRR, no murmur, no edema Gastrointestinal (Abdomen): normal bowel sounds, soft, nontender, no hepatosplenomegaly Neurologic: Speech / Cognition: normal speech and normal cognition Results & Data ([facility]) Vital Signs (Past 12 Hours) Vital Signs Temp Pulse Pulse Resp BP Pulse Ox O2 Del Method 03/30/22 08:04 37.3 C 85 18 147/61 H 96 Room Air 03/29/22 21:16 36.4 C L 82 18 156/63 H 98 Room Air Laboratory Results Laboratory Tests 03/30/22 03/30/22 08:11 08:11 WBC 6.98 Hgb 8.1 L Hct 24.3 L Plt Count 119 L Sodium 148 H Potassium 3.5 Chloride 115 H Carbon Dioxide 23 BUN 73 H Creatinine 6.63 H* Glucose 120 H PG Care Time/CCT Total # of Minutes Spent Total Time Spent with Patient: Total time spent is greater than 50% in coordination of care (as documented) at patient's floor/unit and/or counseling patient: Coding Level of Care Code 04262 SUB INP/OBS CARE 3/50MIN Diagnoses Acute kidney injury N17.9 Chronic kidney disease N18.9 Secondary hyperparathyroidism N25.81 Anemia D64.9 Diarrhea R19.7
[2022-03-30] MEDS: CHOLESTYRAMINE LIGHT 4 GM PKT PO SCH ×2 (09:04→22:56)
[2022-03-30] MEDS: CHOLECALCIFEROL 1,000 UNITS 25 MCG TAB PO SCH (09:05)
[2022-03-30] MEDS: SIMVASTATIN 20 MG TAB PO SCH (09:05)
[2022-03-30] MEDS: METOPROLOL TARTRATE 25 MG TAB PO SCH ×2 (09:06→21:20)
[2022-03-30] MEDS: SODIUM BICARBONATE 650 MG TAB PO SCH ×2 (09:07→21:16)
--- NOTE | 2022-03-30 09:10 | Hospitalist Progress Note ---
Date of Service March 30, 2022 Assessment & Plan (1) Diarrhea: (2) Acute kidney injury: (3) Atrial fibrillation: (4) Dyslipidemia: (5) Hypertension: (6) S/P AVR (aortic valve replacement): (7) H/O stem cell transplant: (8) Increased anion gap metabolic acidosis: (9) Supratherapeutic INR: (10) Elevated lipase: (11) Knee pain: (12) Urinary retention: Plan Messi is a 77 year old male with history of Multiple Myeloma (s/p Stem Cell Transplant), A Fib, mechanical aortic valve, HTN, dyslipidemia, and BPH. Who presented to the hospital with a 6 month history of worsening diarrhea. Patient was admitted to the hospital for acute kidney injury in association with anion gap metabolic acidosis. Pancreatic and renal masses were noted on non-contrast CT scan. [id number] Watery Diarrhea - Diarrhea improving. Etiology still unknown. Outpatient colonoscopy anticipated. - In context of >6 months of intermittent, non voluminous watery diarrhea - 2 weeks of worsening high-volume watery diarrhea with associated anorexia - ESR 47, CRP 3.25 on arrival; no leukocytosis; lytes largely stable in setting of profound ANDREA - CT-A/P: Evidence of kidney and pancreatic mass requiring further evaluation w/ contrast - Ample hydration will be provided as outlined below - Discontinue Pancreatic Enzymes after meals - Continue cholestyramine 4mg, addition of Imodium PRN - Given length of time this has been ongoing, will likely need colonoscopy (last >10 years ago per patient) while here or as outpatient (can consider GI consult once studies return) - Biofire and C Diff negative, symptoms not improved on pancreatic enzymes and unrelated to food, less likely malabsorption - Pending: Stool calproectin, Fecal Fat, Gastrin, Tissue transglutaminase, 24 Urinary 5-HIAA, VIP level - Positive Fecal Occult, we appreciate GI's expertise ANDREA - Etiology includes poor oral fluid intake exacerbated by acute on chronic diarrhea. - 2/6 Creatinine 6.90, sodium elevated at 146 - 2/7 Cr 6.63 BUN 73 sodium 148 No reported history of prior CKD; however, per [facility] [place], 10/2021 labs with Cr 1.7 In the history of worsening watery diarrhea x2 weeks, suspect that ANDREA is secondary to intravascular depletion/dehydration with possible ATN component, likely compounded further by ongoing hydrochlorothiazide therapy No evidence of appreciable electrolyte derangement or findings that would necessitate dialysis at this time Trend labs, gentle electrolyte repletion as necessary --- LR @ 125 cc/hr changed to 0.45 NS 80 ml/hr to account for mild hypernatremia Urinary Retention - 03/29, bladder scanning showing 800 ml urine, cordero placed - no previous history Paroxysmal AFib In sinus rhythm on arrival, rate controlled with metoprolol - 03/30, INR supratherapeutic at 5.4 Hold Warfarin 5mg INR goal: 2.53.0 Hyperlipidemia Continue statin Hypertension Hold hydrochlorothiazide in setting of profound ANDREA as above Pressures have been stable since arrival;reduced metoprolol dose to 25 mg twice daily for now, increase back to home dose of 50 mg twice daily once acute needs have stabilized AoV Replacement - Stable. On Warfarin. MM s/p Stem Cell Transplant in 2013 - Follows with [facility] -- completed chemotherapy in 2015 - Stable and in-remission. Anion gap metabolic acidosis-- gap acidemia with AG 16 / HCO3 12 In the context of ongoing diarrhea and findings consistent with dehydration Likely more subacute at this point. Lactate 0.7 on admission but this was taken after several bags of fluid had been administered -- suspect this was a component prior, as is uremia. Continue fluid therapy as above - following serial labs, acidosis resolved Supratherapeutic INR - INR 8.5 on arrival - Suspect largely d/t poor PO intake over past several weeks - Hold home warfarin - INR 9.5 Mar 23, administered 5 mg of Vitamin K Oral - Mar 24, INR 2.1, Warfarin 5mg restarted - Mar 26 INR 2.3 - Mar 29 INR 6.9, Warfarin held - Mar 30 INR 5.4 Elevated Lipase-at 3000 on admission - Clinically does not appear c/w pancreatitis. Likely contributory from renal insufficiency, ?possibly intestinal inflammation, acidemia - CT-A/P as above, ample hydration Knee pain ddx - patellar tenosynovitis DURAN and [place], pain improved Insomnia - Mirtazapine 15 mg at bedtime for sleep, with the goal of a side benefit of improved appetite - addition of 5mg Melatonin 03/26 Anemia - Epogen 10,000 units SQ x 1 on 03/28 - 03/29: Hgb 8.3, HCT 24.5 - 03/30 Hgb 8.1 HCT 24.5 - monitor serial CBCs Code: Full Diet: renal Prophylaxis: Warfarin therapy, held in the setting of supratherapeutic INR Dispo: MS Consults: Nephro, GI Admission and Anticipated Discharge Date Admission Date: March 22, 2022 Supervising Physician Co-Signing Physician Notes Medical Student Supervision Note: I was personally present during medical student patient encounter and independently interviewed and examined the patient and verified the taylor history and physical, reviewed labs and image studies, discussed the case with Nadia Borrero and agree with the findings and care plan. No BM today so far. for difficulty urinating - had cordero placed. o/e - comfortable. abd - soft, NT/ND ANDREA - secondary to profuse watery diarrhea. continue IV fluid repletion. nephro following Profuse diarrhea - negative work up so far. more lab tests pending. Diarrhea improving with cholestyramine and imodium. plan for outpatient colonoscopy supratherapeutic INR - holding warfarin. follow. Sec Hyperparathyroid - replacing vitamin d3. calcitriol per nephro Kimberly Bry is a 77 year old male on hospital day 7 with a PMH of multiple myeloma (s/p chemotherapy 2015), aortic valve replacement 1997, HTN, dyslipidemia admitted for prerenal ANDREA/ATN following a 6-8 history of diarrhea that worsened in severity and frequency over the last 2 weeks with decreased PO intake. He has had reduced frequency of diarrhea, currently being managed with Cholestyramine + Immodium. He has been eating more, and we discussed introducing some outside foods and increase PO fluid intake. Currently has a catheter in place. He slept well last night. Has a moderate appetite. Review of Systems Review of Systems: See HPI Physical Exam Constitutional: well developed and + thin; no acute distress Eyes: + anicteric sclerae; no corneal abnormality ENMT: Mouth: + dry oral mucous membranes; no oral mucosal abnormality Neck: normal visual inspection and trachea midline Respiratory: normal respiratory effort Auscultation: lungs clear to auscu ltation bilaterally Cardiovascular: Rate/Rhythm: regular rate Heart Sounds: normal S1 and normal S2 Extremities: no edema Gastrointestinal (Abdomen): normal bowel sounds, soft, nontender, no hepatosplenomegaly Musculoskeletal: Extremities: no cyanosis (Left knee wrapped) and no clubbing Skin: + turgor decreased; no jaundice Neurologic: Motor/Sensory: no tremor and no asterixis Psychiatric: Orientation: alert and oriented x 3 Results & Data Results & Data ([facility]) Vital Signs (Past 12 Hours) Vital Signs Temp Pulse Pulse Resp BP Pulse Ox O2 Del Method 03/30/22 08:04 37.3 C 85 18 147/61 H 96 Room Air 03/29/22 21:16 36.4 C L 82 18 156/63 H 98 Room Air
[2022-03-30 09:18] LABS: INR 5.4 (0.9-1.1); Prothrombin Time 52.3 Seconds (9.0-12.0)
[2022-03-30 09:33] LABS: Calcium 8.9 mg/dl (8.5-10.1); Creatinine Clr Calc Pharmacy 9.2 ml/min; Est GFR (African American) 8.4 ml/min; Est GFR (Non-African American) 7.3 ml/min; Potassium 3.5 mmol/L (3.5-5.1)
[2022-03-30] MEDS: SODIUM CHLORIDE 0.45 % 1,000 ML IV SCH (12:26)
[2022-03-30] MEDS: MELATONIN 3 MG TAB PO SCH (21:15)
[2022-03-30] MEDS: MIRTAZAPINE TAB 15 MG TAB PO SCH (21:16)
[2022-03-31] MEDS: SODIUM CHLORIDE 0.45 % 1,000 ML IV SCH (01:03)
[2022-03-31 08:09] LABS: Hematocrit (blood only) 23.2 % (42.0-52.0); Hemoglobin 7.8 g/dl (14.0-18.0); Mean Corpuscular Hemoglobin 30.1 pg (25.0-34.0); Mean Corpuscular Hgb Conc 33.6 g/dL (32.0-36.0); Mean Corpuscular Volume 89.6 fL (80.0-100.0); Mean Platelet Volume 11.2 fL (9.4-12.4); Platelet Count 118 K/uL (130-400); RDW Coefficient of Variation 13.9 % (11.5-14.5); RDW Standard Deviation 45.4 fL (36.4-46.3); Red Blood Count 2.59 M/uL (4.70-6.10); White Blood Count 5.71 K/ul (4.8-10.8)
[2022-03-31 08:27] LABS: BUN Creatinine Ratio 10.4 (10-20); Creatinine Clr Calc Pharmacy 10.3 ml/min; Est GFR (African American) 9.7 ml/min; Est GFR (Non-African American) 8.4 ml/min; Potassium 3.2 mmol/L (3.5-5.1)
[2022-03-31] MEDS ORDERED: POTASSIUM CHLORIDE CRTAB 20 MEQ TABCR PO STA (08:42)
--- NOTE | 2022-03-31 08:46 | Nephrology Progress Note ---
Date of Service March 31, 2022 Assessment & Plan (1) Acute kidney injury: Plan: * Presented w/ 2 week h/o diarrhea (5-6 liquid BM/day), ANDREA (Cr 8.5), elevated lipase and supratherapeutic INR. Has h/o multiple myeloma s/p autologous SCT. 03/23/22 enteric biofire was negative, C. Difficile testing was negative. 03/27/22 renal US was negative for hydronephrosis * Nonoliguric ANDREA due to dehydration/ATN. Was on HCTZ at the time of admission * Cr improving following IV hydration and Chandler catheter insertion * Will stop IVF and encourage oral hydration * Monitor PRP, UO (2) Chronic kidney disease: Plan: * Baseline Cr 1.7 (11/12 [facility] [place] records) (3) Secondary hyperparathyroidism: Plan: * Vitamin D 10, PTH > 800 * Calcitriol 0.25 mcg QMWF has been started (4) Anemia: Plan: * Tsat 33 * Epogen 10,000 units SQ administered 03/28/22 (5) Diarrhea: Plan: * On Cholestyramine. Await further GI evaluation. May need CT enterography Admission and Anticipated Discharge Date Admission Date: March 22, 2022 Subjective Mr. Londono was evaluated in his hospital room this morning. He reports that his diarrhea has resolved. He has had brisk UO since Chandler catheter was placed yesterday Review of Systems Constitutional: no fever Eyes: no problem reported Ear, Nose, Mouth, Throat: no problem reported Respiratory: no dyspnea Cardiovascular: no chest pain Gastrointestinal: no abdominal pain Genitourinary: no dysuria or no difficulty urinating Neurologic: no confusion Physical Exam Constitutional: not in distress Eyes: PERRL, conjunctivae normal, anicteric sclerae ENMT: external ear and nose normal, oropharynx normal Neck: trachea midline, no thyromegaly Respiratory: normal respiratory effort, lungs clear to auscultation Cardiovascular: RRR, no murmur, no edema Gastrointestinal (Abdomen): normal bowel sounds, soft, nontender, no hepatosplenomegaly Neurologic: Speech / Cognition: normal speech and normal cognition Results & Data ([facility]) Vital Signs (Past 12 Hours) Vital Signs Temp Pulse Resp BP BP Pulse Ox O2 Del Method 03/31/22 07:16 37.0 C 74 18 151/69 H 96 Room Air 03/30/22 21:21 36.7 C 80 18 137/62 95 Room Air Laboratory Results Laboratory Tests 03/31/22 03/31/22 07:45 07:45 WBC 5.71 Hgb 7.8 L Hct 23.2 L Plt Count 118 L Sodium 143 Potassium 3.2 L Chloride 112 H Carbon Dioxide 22 BUN 61 H Creatinine 5.89 H* D Glucose 103 H PG Care Time/CCT Total # of Minutes Spent Total Time Spent with Patient: Total time spent is greater than 50% in coordination of care (as documented) at patient's floor/unit and/or counseling patient: Coding Level of Care Code 84019 SUB INP/OBS CARE 3/50MIN Diagnoses Acute kidney injury N17.9 Chronic kidney disease N18.9 Secondary hyperparathyroidism N25.81 Anemia D64.9 Diarrhea R19.7
[2022-03-31 08:51] LABS: INR 5.8 (0.9-1.1)
[2022-03-31] MEDS ORDERED: ERGOCALCIFEROL 50,000 UNITS 1250 MCG CAP PO SCH (09:00)
[2022-03-31] MEDS: CHOLECALCIFEROL 1,000 UNITS 25 MCG TAB PO SCH (09:38)
[2022-03-31] MEDS: METOPROLOL TARTRATE 25 MG TAB PO SCH ×2 (09:38→20:55)
[2022-03-31] MEDS: ERGOCALCIFEROL 50,000 UNITS 1250 MCG CAP PO SCH (09:38)
[2022-03-31] MEDS: SODIUM BICARBONATE 650 MG TAB PO SCH ×3 (09:39→20:55)
[2022-03-31] MEDS: SIMVASTATIN 20 MG TAB PO SCH (09:40)
[2022-03-31] MEDS: CHOLESTYRAMINE LIGHT 4 GM PKT PO SCH ×2 (10:14→20:51)
--- NOTE | 2022-03-31 10:44 | Hospitalist Progress Note ---
Date of Service March 31, 2022 Assessment & Plan (1) Diarrhea: (2) Acute kidney injury: (3) Atrial fibrillation: (4) Dyslipidemia: (5) Hypertension: (6) S/P AVR (aortic valve replacement): (7) H/O stem cell transplant: (8) Increased anion gap metabolic acidosis: (9) Supratherapeutic INR: (10) Elevated lipase: (11) Knee pain: (12) Urinary retention: Plan Messi is a 77 year old male with history of Multiple Myeloma (s/p Stem Cell Transplant), A Fib, mechanical aortic valve, HTN, dyslipidemia, and BPH. Who presented to the hospital with a 6 month history of worsening diarrhea. Patient was admitted to the hospital for acute kidney injury in association with anion gap metabolic acidosis. Pancreatic and renal masses were noted on non-contrast CT scan. [id number] Watery Diarrhea - Diarrhea improving. Etiology still unknown. Outpatient colonoscopy anticipated. - In context of >6 months of intermittent, non voluminous watery diarrhea - 2 weeks of worsening high-volume watery diarrhea with associated anorexia - ESR 47, CRP 3.25 on arrival; no leukocytosis; lytes largely stable in setting of profound ANDREA - CT-A/P: Evidence of kidney and pancreatic mass requiring further evaluation w/ contrast - Ample hydration will be provided as outlined below - Discontinue Pancreatic Enzymes after meals - Continue cholestyramine 4mg, addition of Imodium PRN - Given length of time this has been ongoing, will likely need colonoscopy (last >10 years ago per patient) while here or as outpatient (can consider GI consult once studies return) - Biofire and C Diff negative, symptoms not improved on pancreatic enzymes and unrelated to food, less likely malabsorption - Pending: Stool calproectin, Fecal Fat, Gastrin, Tissue transglutaminase, 24 Urinary 5-HIAA, VIP level - Positive Fecal Occult, we appreciate GI's expertise ANDREA - Etiology includes poor oral fluid intake exacerbated by acute on chronic diarrhea. - 2/6 Creatinine 6.90, sodium elevated at 146 - 2/7 Cr 6.63 BUN 73 sodium 148 No reported history of prior CKD; however, per [facility] [place] notes, 10/2021 labs with Cr 1.7 In the history of worsening watery diarrhea x2 weeks, suspect that ANDREA is secondary to intravascular depletion/dehydration with possible ATN component, likely compounded further by ongoing hydrochlorothiazide therapy No evidence of appreciable electrolyte derangement or findings that would necessitate dialysis at this time Trend labs, gentle electrolyte repletion as necessary --- LR @ 125 cc/hr changed to 0.45 NS 80 ml/hr to account for mild hypernatremia - 03/31 Holding IV fluids in the setting of improved creatinine 5.8, continue to monitor serial labs with encouraged PO intake Urinary Retention - 03/29, bladder scanning showing 800 ml urine, cordero placed - no previous history, enlarge prostate on CT without hydronephrosis Paroxysmal AFib In sinus rhythm on arrival, rate controlled with metoprolol - 03/31, INR supratherapeutic at 5.8 Hold Warfarin 5mg INR goal: 2.53.0 Hyperlipidemia Continue statin Hypertension Hold hydrochlorothiazide in setting of profound ANDREA as above Pressures have been stable since arrival;reduced metoprolol dose to 25 mg twice daily for now, increase back to home dose of 50 mg twice daily once acute needs have stabilized AoV Replacement - Stable. On Warfarin. MM s/p Stem Cell Transplant in 2013 - Follows with [facility] -- completed chemotherapy in 2015 - Stable and in-remission. Anion gap metabolic acidosis-- gap acidemia with AG 16 / HCO3 12 In the context of ongoing diarrhea and findings consistent with dehydration Likely more subacute at this point. Lactate 0.7 on admission but this was taken after several bags of fluid had been administered -- suspect this was a component prior, as is uremia. Continue fluid therapy as above - following serial labs, acidosis resolved Supratherapeutic INR - INR 8.5 on arrival - Suspect largely d/t poor PO intake over past several weeks - Hold home warfarin - INR 9.5 Mar 23, administered 5 mg of Vitamin K Oral - Mar 1, INR 2.1, Warfarin 5mg restarted - Mar 26 INR 2.3 - Mar 6 INR 6.9, Warfarin held - Mar 30 INR 5.4 - Mar 8 INR 5.8 Elevated Lipase-at 3000 on admission - Clinically does not appear c/w pancreatitis. Likely contributory from renal insufficiency, ?possibly intestinal inflammation, acidemia - CT-A/P as above, ample hydration Knee pain ddx - patellar tenosynovitis RICE and brace, pain improved Insomnia - Mirtazapine 15 mg at bedtime for sleep, with the goal of a side benefit of improved appetite - addition of 5mg Melatonin 03/26 Anemia - Epogen 10,000 units SQ x 1 on 03/28 - 03/29: Hgb 8.3, HCT 24.5 - 03/30 Hgb 8.1 HCT 24.5 - monitor serial CBCs Code: Full Diet: renal Prophylaxis: Warfarin therapy, held in the setting of supratherapeutic INR Dispo: MS Consults: Nephro, GI Admission and Anticipated Discharge Date Admission Date: March 22, 2022 Supervising Physician Co-Signing Physician Notes Medical Student Supervision Note: I was personally present during medical student patient encounter and independently interviewed and examined the patient and verified the taylor history and physical, reviewed labs and image studies, discussed the case with Nadia Borrero and agree with the findings and care plan. No diarrhea since yesterday. eating well. tolerating cordero cath. o/e - comfortable. no respiratory distress. heart - regular rate/rhythm. ANDREA - secondary to profuse watery diarrhea. diarrhea improved. IVF stopped. nephro following Urinary retention - cordero in place. Improvement in Creatinine since then. will add flomax Profuse diarrhea - negative work up so far. more lab tests pending. Diarrhea improvedwith cholestyramine and imodium. plan for outpatient colonoscopy supratherapeutic INR - holding warfarin. follow. HTN - continue metoprolol. hctz on hold. Sec Hyperparathyroid - replacing vitamin d3. calcitriol per nephro Kimberly Bry is a 77 yo male on hospital day 8 for acute on chronic diarrhea with an ANDREA. Today he feels well. He has not had a bowel movement since 03/29. He is taking cholestyramine and Imodium. Urinary catheter still in place. Encouraged oral fluid intake. Review of Systems Review of Systems: See HPI Physical Exam Constitutional: not in distress Eyes: PERRL, conjunctivae normal, anicteric sclerae ENMT: external ear and nose normal, oropharynx normal Neck: trachea midline, no thyromegaly Respiratory: normal respiratory effort, lungs clear to auscultation Cardiovascular: RRR, no murmur, no edema Gastrointestinal (Abdomen): normal bowel sounds, soft, nontender, no hepatosplenomegaly Neurologic: Speech / Cognition: normal speech and normal cognition Results & Data Results & Data ([facility]) Vital Signs (Past 12 Hours) Vital Signs Temp Pulse Resp BP Pulse Ox O2 Del Method 03/31/22 07:16 37.0 C 74 18 151/69 H 96 Room Air
[2022-03-31] MEDS: CALCITRIOL 0.25 MCG CAPSULE PO SCH (11:23)
[2022-03-31] MEDS: MIRTAZAPINE TAB 15 MG TAB PO SCH (20:54)
[2022-03-31] MEDS: TAMSULOSIN HCL 0.4 MG CAP PO SCH (20:54)
[2022-03-31] MEDS: MELATONIN 3 MG TAB PO SCH (20:55)
[2022-04-01] MEDS: ACETAMINOPHEN 325 MG TAB PO PRN ×3 (07:59→23:29)
[2022-04-01 08:41] LABS: Hematocrit (blood only) 23.2 % (42.0-52.0); Mean Corpuscular Hemoglobin 30.4 pg (25.0-34.0); Mean Corpuscular Hgb Conc 34.5 g/dL (32.0-36.0); Mean Corpuscular Volume 88.2 fL (80.0-100.0); Mean Platelet Volume 11.4 fL (9.4-12.4); Platelet Count 126 K/uL (130-400); RDW Coefficient of Variation 13.6 % (11.5-14.5); RDW Standard Deviation 43.8 fL (36.4-46.3); Red Blood Count 2.63 M/uL (4.70-6.10); White Blood Count 6.94 K/ul (4.8-10.8)
--- NOTE | 2022-04-01 08:47 | Nephrology Progress Note ---
Date of Service April 01, 2022 Assessment & Plan (1) Acute kidney injury: Plan: * Presented w/ 2 week h/o diarrhea (5-6 liquid BM/day), ANDREA (Cr 8.5), elevated lipase and supratherapeutic INR. Has h/o multiple myeloma s/p autologous SCT. 03/23/22 enteric biofire was negative, C. Difficile testing was negative. 03/27/22 renal US was negative for hydronephrosis * Nonoliguric ANDREA due to dehydration/ATN. Was on HCTZ at the time of admission * Renal recovery has stalled. Patient appears euvolemic. Will provide 1 L NS IV * Monitor PRP, UO (2) Chronic kidney disease: Plan: * Baseline Cr 1.7 (11/12 [facility] [place] records) (3) Secondary hyperparathyroidism: Plan: * Vitamin D 10, PTH > 800 * Calcitriol 0.25 mcg QMWF has been started (4) Anemia: Plan: * Tsat 33 * Epogen 10,000 units SQ administered 03/28/22 (5) Diarrhea: Plan: * On Cholestyramine. Await further GI evaluation. May need CT enterography Admission and Anticipated Discharge Date Admission Date: March 22, 2022 Subjective Mr. Londono was evaluated in his hospital room this morning. He denies any further diarrhea. Chandler catheter remains in place draining clear, yellow urine. Mr. Londono voices no new concerns Review of Systems Constitutional: no fever Eyes: no problem reported Ear, Nose, Mouth, Throat: no problem reported Respiratory: no dyspnea Cardiovascular: no chest pain Gastrointestinal: no abdominal pain Genitourinary: no dysuria or no difficulty urinating Neurologic: no confusion Physical Exam Constitutional: not in distress Eyes: PERRL, conjunctivae normal, anicteric sclerae ENMT: external ear and nose normal, oropharynx normal Neck: trachea midline, no thyromegaly Respiratory: normal respiratory effort, lungs clear to auscultation Cardiovascular: RRR, no murmur, no edema Gastrointestinal (Abdomen): normal bowel sounds, soft, nontender, no hepatosplenomegaly Neurologic: Speech / Cognition: normal speech and normal cognition Results & Data ([facility]) Vital Signs (Past 12 Hours) Vital Signs Temp Pulse Pulse Resp BP BP Pulse Ox 04/01/22 07:19 36.8 C 88 18 159/73 H 97 03/31/22 22:28 36.5 C 79 18 156/69 H 95 03/31/22 20:53 83 156/70 H O2 Del Method 04/01/22 07:19 Room Air 03/31/22 22:28 Room Air 03/31/22 20:53 Laboratory Results Laboratory Tests 04/01/22 04/01/22 07:35 07:35 WBC 6.94 Hgb 8.0 L Hct 23.2 L Plt Count 126 L Sodium 143 Potassium 3.3 L Chloride 111 H BUN 63 H Creatinine 6.14 H* Glucose 127 H PG Care Time/CCT Total # of Minutes Spent Total Time Spent with Patient: Total time spent is greater than 50% in coordination of care (as documented) at patient's floor/unit and/or counseling patient: Coding Level of Care Code 86088 SUB INP/OBS CARE 3/50MIN Diagnoses Acute kidney injury N17.9 Chronic kidney disease N18.9 Secondary hyperparathyroidism N25.81 Anemia D64.9 Diarrhea R19.7
[2022-04-01 08:55] LABS: BUN Creatinine Ratio 10.3 (10-20); Calcium 8.1 mg/dl (8.5-10.1); Creatinine Clr Calc Pharmacy 9.9 ml/min; Est GFR (African American) 9.3 ml/min; Potassium 3.3 mmol/L (3.5-5.1)
[2022-04-01] MEDS: CHOLECALCIFEROL 1,000 UNITS 25 MCG TAB PO SCH (09:05)
[2022-04-01] MEDS: METOPROLOL TARTRATE 25 MG TAB PO SCH ×2 (09:05→20:34)
[2022-04-01] MEDS: SIMVASTATIN 20 MG TAB PO SCH (09:05)
[2022-04-01] MEDS: CHOLESTYRAMINE LIGHT 4 GM PKT PO SCH ×2 (09:06→22:42)
[2022-04-01] MEDS: SODIUM BICARBONATE 650 MG TAB PO SCH ×3 (09:06→20:45)
[2022-04-01 09:11] LABS: INR 4.1 (0.9-1.1); Prothrombin Time 40.5 Seconds (9.0-12.0)
--- NOTE | 2022-04-01 09:28 | Hospitalist Progress Note ---
Date of Service April 01, 2022 Assessment & Plan (1) Diarrhea: (2) Acute kidney injury: (3) Atrial fibrillation: (4) Dyslipidemia: (5) Hypertension: (6) S/P AVR (aortic valve replacement): (7) H/O stem cell transplant: (8) Increased anion gap metabolic acidosis: (9) Supratherapeutic INR: (10) Elevated lipase: (11) Knee pain: (12) Urinary retention: Plan Messi is a 77 year old male with history of Multiple Myeloma (s/p Stem Cell Transplant), A Fib, mechanical aortic valve, HTN, dyslipidemia, and BPH. Who presented to the hospital with a 6 month history of worsening diarrhea. Patient was admitted to the hospital for acute kidney injury in association with anion gap metabolic acidosis. Pancreatic and renal masses were noted on non-contrast CT scan. [id number] Watery Diarrhea - Diarrhea improving. Etiology still unknown. Outpatient colonoscopy anticipated. - In context of >6 months of intermittent, non voluminous watery diarrhea - 2 weeks of worsening high-volume watery diarrhea with associated anorexia - ESR 47, CRP 3.25 on arrival; no leukocytosis; lytes largely stable in setting of profound ANDREA - CT-A/P: Evidence of kidney and pancreatic mass requiring further evaluation w/ contrast - Ample hydration will be provided as outlined below - Discontinue Pancreatic Enzymes after meals - Continue cholestyramine 4mg, addition of Imodium PRN - Given length of time this has been ongoing, will likely need colonoscopy (last >10 years ago per patient) while here or as outpatient (can consider GI consult once studies return) - Biofire and C Diff negative, symptoms not improved on pancreatic enzymes and unrelated to food, less likely malabsorption - Pending: Stool calproectin, Fecal Fat, Gastrin, Tissue transglutaminase, 24 Urinary 5-HIAA, VIP level - Positive Fecal Occult, we appreciate GI's expertise ANDREA - Etiology includes poor oral fluid intake exacerbated by acute on chronic diarrhea. - 2/6 Creatinine 6.90, sodium elevated at 146 - 2/7 Cr 6.63 BUN 73 sodium 148 No reported history of prior CKD; however, per [facility] notes, 10/2021 labs with Cr 1.7 In the history of worsening watery diarrhea x2 weeks, suspect that ANDREA is secondary to intravascular depletion/dehydration with possible ATN component, likely compounded further by ongoing hydrochlorothiazide therapy No evidence of appreciable electrolyte derangement or findings that would necessitate dialysis at this time Trend labs, gentle electrolyte repletion as necessary --- LR @ 125 cc/hr changed to 0.45 NS 80 ml/hr to account for mild hypernatremia - 03/31 Holding IV fluids in the setting of improved creatinine 5.8, continue to monitor serial labs with encouraged PO intake - 04/01 Restarted NSS 1L 80 ml/hr in the setting of worsened creatine at 6.1, continue to monitor Urinary Retention - 03/29, bladder scanning showing 800 ml urine, cordero placed - no previous history, enlarge prostate on CT without hydronephrosis - 04/01: Flomax 0.4 mg Paroxysmal AFib In sinus rhythm on arrival, rate controlled with metoprolol - 04/01, INR supratherapeutic at 4.1 Hold Warfarin 5mg INR goal: 2.53.0 Hyperlipidemia Continue statin Hypertension Hold hydrochlorothiazide in setting of profound ANDREA as above Pressures have been stable since arrival;reduced metoprolol dose to 25 mg twice daily for now, increase back to home dose of 50 mg twice daily once acute needs have stabilized AoV Replacement - Stable. On Warfarin. MM s/p Stem Cell Transplant in 2013 - Follows with [facility] -- completed chemotherapy in 2016 - Stable and in-remission. Anion gap metabolic acidosis-- gap acidemia with AG 16 / HCO3 12 In the context of ongoing diarrhea and findings consistent with dehydration Likely more subacute at this point. Lactate 0.7 on admission but this was taken after several bags of fluid had been administered -- suspect this was a component prior, as is uremia. Continue fluid therapy as above - following serial labs, acidosis resolved Supratherapeutic INR - INR 8.5 on arrival - Suspect largely d/t poor PO intake over past several weeks - Hold home warfarin - INR 9.5 Mar 23, administered 5 mg of Vitamin K Oral - Mar 1, INR 2.1, Warfarin 5mg restarted - Mar 26 INR 2.3 - Mar 6 INR 6.9, Warfarin held - Mar 30 INR 5.4 - Mar 31 INR 5.8 - Apr 01 INR 4.1 Elevated Lipase-at 3000 on admission - Clinically does not appear c/w pancreatitis. Likely contributory from renal insufficiency, ?possibly intestinal inflammation, acidemia - CT-A/P as above, ample hydration Knee pain ddx - patellar tenosynovitis DURAN and [place], pain improved Insomnia - Mirtazapine 15 mg at bedtime for sleep, with the goal of a side benefit of improved appetite - addition of 5mg Melatonin / Anemia - Epogen 10,000 units SQ x 1 on 03/28 - 03/29: Hgb 8.3, HCT 24.5 - /7 Hgb 8.1 HCT 24.5 - 04/01 Hgb 8.0 HCT 23.2 - monitor serial CBCs Left dorsal foot blister - wrapped - Pain managed with Tylenol PO - recommended elevation to reduce swelling Code: Full Diet: renal Prophylaxis: Warfarin therapy, held in the setting of supratherapeutic INR Dispo: MS Consults: Nephro, GI Admission and Anticipated Discharge Date Admission Date: March 22, 2022 Supervising Physician Co-Signing Physician Notes Medical Student Supervision Note: I was personally present during medical student patient encounter and independently interviewed and examined the patient and verified the taylor history and physical, reviewed labs and image studies, discussed the case with Nadia Borrero and agree with the findings and care plan. Continuing to have no diarrhea. eating well. tolerating cordero cath. o/e - comfortable. no respiratory distress. heart - regular rate/rhythm. ANDREA - secondary to profuse watery diarrhea. diarrhea resolved. Creatinine still elevated 6.1. IVF resumed. nephro following Urinary retention - cordero in place. Added flomax - tolerating well Profuse diarrhea - negative work up so far. more lab tests pending. Diarrhea improved with cholestyramine and imodium. plan for outpatient colonoscopy supratherapeutic INR - holding warfarin. follow. HTN - continue metoprolol. hctz on hold. Sec Hyperparathyroid - replacing vitamin d3. calcitriol per nephro Kimberly Bry is a 77 yo male with a PMH multiple myeloma (s/p chemo 2019 in remission), aortic valve replacement (1997 om chronic warfarin therapy), HTN, atrial fibrillation. On hospital day 8 for acute on chronic diarrhea for the past 6-8 weeks worsening in severity 2 weeks prior to admission. Today he feels about the same. Noticed blister on left foot that has been draining. Pain controlled with Tylenol. No bowel movement since 03/29. Did not take imodium or cholestyramine on 03/31. No abd pain, n/v, REYES, dizziness. Catheter still in place. Encouraging PO intake. Review of Systems Review of Systems: See HPI Physical Exam Constitutional: well developed and + thin; no acute distress and not in distress Eyes: PERRL, conjunctivae normal, anicteric sclerae + anicteric sclerae; no corneal abnormality ENMT: external ear and nose normal, oropharynx normal Mouth: + dry oral mucous membranes; no oral mucosal abnormality Neck: trachea midline, no thyromegaly normal visual inspection and trachea midline Respiratory: normal respiratory effort, lungs clear to auscultation normal respiratory effort Auscultation: lungs clear to auscultation bilaterally Cardiovascular: RRR, no murmur, no edema Rate/Rhythm: regular rate Heart Sounds: normal S1 and normal S2 Extremities: no edema Gastrointestinal (Abdomen): normal bowel sounds, soft, nontender, no hepatosplenomegaly Musculoskeletal: Extremities: no cyanosis (Left knee wrapped) and no clubbing Skin: normal turgor, + lesion (left dorsal foot) and + erythema; no jaundice Neurologic: Speech / Cognition: normal speech and normal cognition Motor/Sensory: no tremor and no asterixis Psychiatric: Orientation: alert and oriented x 3 Results & Data Results & Data ([facility]) Vital Signs (Past 12 Hours) Vital Signs Temp Pulse Pulse Resp BP Pulse Ox O2 Del Method 04/01/22 07:19 36.8 C 88 18 159/73 H 97 Room Air 03/31/22 22:28 36.5 C 79 18 156/69 H 95 Room Air
[2022-04-01] MEDS ORDERED: SODIUM CHLORIDE 0.9% 1000ML 1,000 ML IV SCH (10:45)
[2022-04-01] MEDS: TAMSULOSIN HCL 0.4 MG CAP PO SCH (20:34)
[2022-04-01] MEDS: MIRTAZAPINE TAB 15 MG TAB PO SCH (20:35)
[2022-04-01] MEDS: MELATONIN 3 MG TAB PO SCH (20:37)
[2022-04-02] MEDS: ACETAMINOPHEN 325 MG TAB PO PRN (08:25)
[2022-04-02] MEDS: SIMVASTATIN 20 MG TAB PO SCH (08:26)
[2022-04-02] MEDS: METOPROLOL TARTRATE 25 MG TAB PO SCH ×2 (08:26→20:31)
[2022-04-02] MEDS: SODIUM BICARBONATE 650 MG TAB PO SCH ×2 (08:26→20:31)
[2022-04-02] MEDS: CHOLECALCIFEROL 1,000 UNITS 25 MCG TAB PO SCH (08:27)
[2022-04-02] MEDS: CHOLESTYRAMINE LIGHT 4 GM PKT PO SCH ×2 (08:29→22:37)
[2022-04-02 08:30] LABS: Calcium 7.6 mg/dl (8.5-10.1); Creatinine Clr Calc Pharmacy 10.5 ml/min; Est GFR (Non-African American) 8.6 ml/min; Potassium 3.2 mmol/L (3.5-5.1)
[2022-04-02 08:48] LABS: Hematocrit (blood only) 21.3 % (42.0-52.0); Hemoglobin 7.2 g/dl (14.0-18.0); Mean Corpuscular Hemoglobin 29.8 pg (25.0-34.0); Mean Corpuscular Hgb Conc 33.8 g/dL (32.0-36.0); Mean Platelet Volume 11.3 fL (9.4-12.4); Platelet Count 125 K/uL (130-400); RDW Coefficient of Variation 13.5 % (11.5-14.5); RDW Standard Deviation 43.4 fL (36.4-46.3); Red Blood Count 2.42 M/uL (4.70-6.10); White Blood Count 5.97 K/ul (4.8-10.8)
[2022-04-02 08:50] LABS: INR 2.3 (0.9-1.1); Prothrombin Time 23.9 Seconds (9.0-12.0)
--- NOTE | 2022-04-02 09:13 | Nephrology Progress Note ---
Date of Service April 02, 2022 Assessment & Plan (1) Acute kidney injury: Plan: * Presented w/ 2 week h/o diarrhea (5-6 liquid BM/day), ANDREA (Cr 8.5), elevated lipase and supratherapeutic INR. Has h/o multiple myeloma s/p autologous SCT. 03/23/22 enteric biofire was negative, C. Difficile testing was negative. 03/27/22 renal US was negative for hydronephrosis * Nonoliguric ANDREA due to dehydration/ATN. Was on HCTZ at the time of admission * Hold diuretics * Encourage oral hydration * Monitor PRP, UO (2) Chronic kidney disease: Plan: * Baseline Cr 1.7 (11/12 [facility] records) (3) Secondary hyperparathyroidism: Plan: * Vitamin D 10, PTH > 800 * Calcitriol 0.25 mcg QMWF has been started (4) Anemia: Plan: * Tsat 33 * Will administer Epogen 10,000 units SQ today (5) Diarrhea: Plan: * On Cholestyramine. Await further GI evaluation. May need CT enterography Admission and Anticipated Discharge Date Admission Date: March 22, 2022 Subjective Mr. Londono was evaluated in his hospital room this morning. Diarrhea has resolved. Chandler catheter remains in place draining clear, yellow urine. Mr. Londono voices no new concerns Review of Systems Constitutional: no fever Eyes: no problem reported Ear, Nose, Mouth, Throat: no problem reported Respiratory: no dyspnea Cardiovascular: no chest pain Gastrointestinal: no abdominal pain Genitourinary: no dysuria or no difficulty urinating Neurologic: no confusion Physical Exam Constitutional: not in distress Eyes: PERRL, conjunctivae normal, anicteric sclerae ENMT: external ear and nose normal, oropharynx normal Neck: trachea midline, no thyromegaly Respiratory: normal respiratory effort, lungs clear to auscultation Cardiovascular: RRR, no murmur, no edema Gastrointestinal (Abdomen): normal bowel sounds, soft, nontender, no hepatosplenomegaly Neurologic: Speech / Cognition: normal speech and normal cognition Results & Data ([facility]) Vital Signs (Past 12 Hours) Vital Signs Temp Pulse Resp BP Pulse Ox O2 Del Method 04/02/22 07:58 36.9 C 93 H 18 146/63 H 96 Room Air Laboratory Results Laboratory Tests 03/24/22 04/02/22 04/02/22 09:10 07:21 07:21 WBC 5.97 Hgb 7.2 L Hct 21.3 L Sodium 139 Potassium 3.2 L Chloride 109 H Carbon Dioxide 21 BUN 58 H Creatinine 5.78 H* D Glucose 113 H Calcium 7.6 L Transferrin % Sat 33 Ferritin 525.6 H PG Care Time/CCT Total # of Minutes Spent Total Time Spent with Patient: Total time spent is greater than 50% in coordination of care (as documented) at patient's floor/unit and/or counseling patient: Coding Level of Care Code 75185 SUB INP/OBS CARE 3/50MIN Diagnoses Acute kidney injury N17.9 Chronic kidney disease N18.9 Secondary hyperparathyroidism N25.81 Anemia D64.9 Diarrhea R19.7
[2022-04-02] MEDS ORDERED: EPOETIN ALFA 10,000 UNITS/ML VIAL SQ ONE (10:15)
[2022-04-02] MEDS: POTASSIUM CHLORIDE / WTR 10 MEQ/100 ML PLCT IV SCH ×6 (10:24→17:41)
[2022-04-02] MEDS: CALCITRIOL 0.25 MCG CAPSULE PO SCH (10:31)
--- NOTE | 2022-04-02 10:43 | Hospitalist Progress Note ---
Date of Service April 02, 2022 Assessment & Plan (1) Diarrhea: (2) Acute kidney injury: (3) Atrial fibrillation: (4) Dyslipidemia: (5) Hypertension: (6) S/P AVR (aortic valve replacement): (7) H/O stem cell transplant: (8) Increased anion gap metabolic acidosis: (9) Supratherapeutic INR: (10) Elevated lipase: (11) Knee pain: (12) Urinary retention: Plan Messi is a 77 year old male with history of Multiple Myeloma (s/p Stem Cell Transplant), A Fib, mechanical aortic valve, HTN, dyslipidemia, and BPH. Who presented to the hospital with a 6 month history of worsening diarrhea. Patient was admitted to the hospital for acute kidney injury in association with anion gap metabolic acidosis. Pancreatic and renal masses were noted on non-contrast CT scan. [id number] Watery Diarrhea - Diarrhea improving. Etiology still unknown. Outpatient colonoscopy anticipated. - In context of >6 months of intermittent, non voluminous watery diarrhea - 2 weeks of worsening high-volume watery diarrhea with associated anorexia - ESR 47, CRP 3.25 on arrival; no leukocytosis; lytes largely stable in setting of profound ANDREA - CT-A/P: Evidence of kidney and pancreatic mass requiring further evaluation w/ contrast - Ample hydration will be provided as outlined below - Discontinue Pancreatic Enzymes after meals - Continue cholestyramine 4mg, addition of Imodium PRN - Given length of time this has been ongoing, will likely need colonoscopy (last >10 years ago per patient) while here or as outpatient (can consider GI consult once studies return) - Biofire and C Diff negative, symptoms not improved on pancreatic enzymes and unrelated to food, less likely malabsorption - Pending: Stool calproectin, Fecal Fat, Gastrin, Tissue transglutaminase, 24 Urinary 5-HIAA, VIP level - Positive Fecal Occult, we appreciate GI's expertise ANDREA - Etiology includes poor oral fluid intake exacerbated by acute on chronic diarrhea. - 2/6 Creatinine 6.90, sodium elevated at 146 - 2/7 Cr 6.63 BUN 73 sodium 148 No reported history of prior CKD; however, per [facility] notes, 10/2021 labs with Cr 1.7 In the history of worsening watery diarrhea x2 weeks, suspect that ANDREA is secondary to intravascular depletion/dehydration with possible ATN component, likely compounded further by ongoing hydrochlorothiazide therapy No evidence of appreciable electrolyte derangement or findings that would necessitate dialysis at this time Trend labs, gentle electrolyte repletion as necessary --- LR @ 125 cc/hr changed to 0.45 NS 80 ml/hr to account for mild hypernatremia - 03/31 Holding IV fluids in the setting of improved creatinine 5.8, continue to monitor serial labs with encouraged PO intake - 04/01 Restarted NSS 1L 80 ml/hr in the setting of worsened creatine at 6.1, continue to monitor - 04/02 Holding IV fluids and encouraging PO intake, Incentive spirometry to address any degree of lower lobe atelectasis Urinary Retention - 03/29, bladder scanning showing 800 ml urine, cordero placed - no previous history, enlarge prostate on CT without hydronephrosis - 04/01: Flomax 0.4 mg Paroxysmal AFib In sinus rhythm on arrival, rate controlled with metoprolol - 04/01, INR supratherapeutic at 4.1 - 04/02: INR 2/3, restart Warfarin 5mg INR goal: 2.53.0 Hyperlipidemia Continue statin Hypertension Hold hydrochlorothiazide in setting of profound ANDREA as above Pressures have been stable since arrival;reduced metoprolol dose to 25 mg twice daily for now, increase back to home dose of 50 mg twice daily once acute needs have stabilized AoV Replacement - Stable. On Warfarin. MM s/p Stem Cell Transplant in 2013 - Follows with [facility] -- completed chemotherapy in 2015 - Stable and in-remission. Anion gap metabolic acidosis-- gap acidemia with AG 16 / HCO3 12 In the context of ongoing diarrhea and findings consistent with dehydration Likely more subacute at this point. Lactate 0.7 on admission but this was taken after several bags of fluid had been administered -- suspect this was a component prior, as is uremia. Continue fluid therapy as above - following serial labs, acidosis resolved Supratherapeutic INR - INR 8.5 on arrival - Suspect largely d/t poor PO intake over past several weeks - Hold home warfarin - INR 9.5 Mar 23, administered 5 mg of Vitamin K Oral - Mar 1, INR 2.1, Warfarin 5mg restarted - Mar 3 INR 2.3 - Mar 6 INR 6.9, Warfarin held - Mar 30 INR 5.4 - Mar 8 INR 5.8 - Mar 9 INR 4.1 - Feb 10 INR 2.3, restart Warfarin Elevated Lipase-at 3000 on admission - Clinically does not appear c/w pancreatitis. Likely contributory from renal insufficiency, ?possibly intestinal inflammation, acidemia - CT-A/P as above, ample hydration Knee pain ddx - patellar tenosynovitis RICE and brace, pain improved Insomnia - Mirtazapine 15 mg at bedtime for sleep, with the goal of a side benefit of improved appetite - addition of 5mg Melatonin 03/26 Anemia - Epogen 10,000 units SQ x 1 on 03/28 - 03/29: Hgb 8.3, HCT 24.5 - 03/30 Hgb 8.1 HCT 24.5 - 04/01 Hgb 8.0 HCT 23.2 - 04/02 Hgb 7.2 HCT 21.3, Epogen 10,000 units SQ x 1 administered - monitor serial CBCs Left dorsal foot blister - wrapped - Pain managed with Tylenol PO - recommended elevation to reduce swelling Code: Full Diet: renal Prophylaxis: Warfarin 5 mg Dispo: MS Consults: Nephro, GI Admission and Anticipated Discharge Date Admission Date: March 22, 2022 Supervising Physician Co-Signing Physician Notes Medical Student Supervision Note: I was personally present during medical student patient encounter and independently interviewed and examined the patient and verified the taylor history and physical, reviewed labs and image studies, discussed the case with Nadia Borrero and agree with the findings and care plan. Continuing to have no diarrhea. eating well. no chest pain, shortness of breath o/e - comfortable. no respiratory distress, lungs - CTA heart - regular rate/rhythm. Feet - with edema bilaterally. left anterior foot with clear blister ANDREA - secondary to profuse watery diarrhea. diarrhea resolved. Creatinine still elevated. No improvement. Monitor per nephro Urinary retention - cordero in place. Added flomax - tolerating well. voiding trial in am. Profuse diarrhea - negative work up so far. more lab tests pending. Diarrhea improved with cholestyramine and imodium. plan for outpatient colonoscopy HTN - continue metoprolol. hctz on hold. Sec Hyperparathyroid - replacing vitamin d3. calcitriol per nephro Foot blister- likely from edema. dressing, keep legs propped. follow. Subjective Messi Londono is a 77 year old male with a PMH of Multiple myeloma (remission since 2015, in remission), aortic valve replacement (1997), HTN, atrial fibrillation, and dyslipidemia. On hospital day 9 for acute on chronic diarrhea, ANDREA and supratherapeutic INR. Today Mr. Londono feels well with no concerns. He has had no episodes of diarrhea since 03/29. Cordero in place for urinary retention. Blister on foot is improving with elevation and acetaminophen for pain control. Encouraged PO hydration. Review of Systems Review of Systems: See HPI Physical Exam Constitutional: well developed and + thin; no acute distress and not in distress Eyes: PERRL, conjunctivae normal, anicteric sclerae + anicteric sclerae; no corneal abnormality ENMT: external ear and nose normal, oropharynx normal Mouth: + dry oral mucous membranes; no oral mucosal abnormality Neck: trachea midline, no thyromegaly normal visual inspection and trachea midline Respiratory: normal respiratory effort Auscultation: + crackles Cardiovascular: RRR, no murmur, no edema Rate/Rhythm: regular rate Heart Sounds: normal S1 and normal S2 Extremities: no edema Gastrointestinal (Abdomen): normal bowel sounds, soft, nontender, no hepatosplenomegaly Musculoskeletal: Extremities: no cyanosis (Left knee wrapped) and no clubbing Skin: normal turgor, + turgor decreased, + lesion (left dorsal foot) and + erythema; no jaundice Neurologic: Speech / Cognition: normal speech and normal cognition Motor/Sensory: no tremor and no asterixis Psychiatric: Orientation: alert and oriented x 3 Results & Data Results & Data ([facility]) Vital Signs (Past 12 Hours) Vital Signs Temp Pulse Resp BP Pulse Ox O2 Del Method 04/02/22 07:58 36.9 C 93 H 18 146/63 H 96 Room Air
[2022-04-02] MEDS: WARFARIN SOD 5 MG TAB PO SCH (16:10)
[2022-04-02] MEDS: MIRTAZAPINE TAB 15 MG TAB PO SCH (20:30)
[2022-04-02] MEDS: TAMSULOSIN HCL 0.4 MG CAP PO SCH (20:30)
[2022-04-02] MEDS: MELATONIN 3 MG TAB PO SCH (20:31)
[2022-04-03] MEDS: SIMVASTATIN 20 MG TAB PO SCH (09:31)
[2022-04-03] MEDS: METOPROLOL TARTRATE 25 MG TAB PO SCH ×2 (09:31→20:02)
[2022-04-03] MEDS: CHOLECALCIFEROL 1,000 UNITS 25 MCG TAB PO SCH (09:31)
[2022-04-03] MEDS: SODIUM BICARBONATE 650 MG TAB PO SCH ×3 (09:31→19:40)
[2022-04-03] MEDS: ACETAMINOPHEN 325 MG TAB PO PRN (09:37)
[2022-04-03 09:43] LABS: BUN Creatinine Ratio 10.7 (10-20); Calcium 7.8 mg/dl (8.5-10.1); Creatinine Clr Calc Pharmacy 10.9 ml/min; Est GFR (African American) 10.4 ml/min; Potassium 3.9 mmol/L (3.5-5.1)
[2022-04-03 09:46] LABS: Hematocrit (blood only) 20.9 % (42.0-52.0); Hemoglobin 7.1 g/dl (14.0-18.0); Mean Corpuscular Hemoglobin 29.7 pg (25.0-34.0); Mean Corpuscular Volume 87.4 fL (80.0-100.0); Platelet Count 133 K/uL (130-400); RDW Coefficient of Variation 13.2 % (11.5-14.5); RDW Standard Deviation 42.4 fL (36.4-46.3); Red Blood Count 2.39 M/uL (4.70-6.10); White Blood Count 6.17 K/ul (4.8-10.8)
[2022-04-03 10:08] LABS: INR 1.8 (0.9-1.1); Prothrombin Time 18.1 Seconds (9.0-12.0)
--- NOTE | 2022-04-03 10:44 | Hospitalist Progress Note ---
Date of Service April 03, 2022 Assessment & Plan (1) Diarrhea: (2) Acute kidney injury: (3) Atrial fibrillation: (4) Dyslipidemia: (5) Hypertension: (6) S/P AVR (aortic valve replacement): (7) H/O stem cell transplant: (8) Increased anion gap metabolic acidosis: (9) Supratherapeutic INR: (10) Elevated lipase: (11) Knee pain: (12) Urinary retention: Plan Pt is a 77 yo male with PMH of multiple myeloma (s/p stem cell transplant), afib, mechanical aortic valve, HTN, dyslipidemia, and BPH who presented to the hospital with a 6 month history of worsening diarrhea. Patient was admitted to the hospital for acute kidney injury in association with anion gap metabolic aci dosis. Acute on chronic watery diarrhea- resolved - etiology unknown; plan for outpatient colonoscopy - ESR 47, CRP 3.25 on arrival; no leukocytosis; lytes largely stable in setting of profound ANDREA - CTAP showed evidence of kidney and pancreatic mass requiring further evaluation w/ contrast scans - GI biofire neg, c diff neg, stool calprotectin neg, stool fat neg, VIP WNL, anti TTG neg, gastrin neg - FOBT pos - 24 Urinary 5-HIAA pending - trial of pancreatic enzymes discontinued d/t lack of improvement - continue cholestyramine 4mg, imodium PRN - recommend outpatient colonoscopy (last one >10 yrs ago) - diarrhea now improved and stable ANDREA d/t poor oral fluid intake and diarrhea - Cr upon admission 8.50 - no hx of CKD; however, [place] [facility] [facility] [place] labs with Cr 1.7 - ANDREA sec to intravascular depletion/dehydration with possible ATN component, likely compounded further by ongoing hydrochlorothiazide therapy in the setting of GI losses - Cr improved w/ IVF; continuing to encourage adequate oral intake - per nephro, continue sodium bicarb Urinary retention - 03/29, bladder scanning showing 800 ml urine- cordero placed - no previous history; enlarged prostate on CT without hydronephrosis - began flomax 0.4 mg 04/01 Chronic anticoagulation - On admission Mar 22 INR 8.5, suspect largely d/t poor PO intake - Apr 02 INR 2.3, restarted warfarin - Apr 03 INR 1.8, give additional 5 mg dose today for total 7.5mgs Paroxysmal afib In sinus rhythm on arrival, rate controlled with metoprolol INR goal: 2.53.0 due to mechanical valve - warfarin/INR management as above Anemia - Hgb stable, mostly 7-9 this admission - epogen given 03/28, 04/02 - continue to monitor Undifferentiated pancreatic and kidney masses - GI recommended pancreatic MRI w/ or w/o EUS - further differentiation necessary by CT w/ contrast Hyperlipidemia Continue statin Hypertension Hold hydrochlorothiazide in setting of profound ANDREA as above Pressures have been stable since arrival; reduced metoprolol dose to 25 mg twice daily for now, increase back to home dose of 50 mg twice daily once acute needs have stabilized Mechanical aortic valve replacement - warfarin management as above MM s/p stem cell transplant in 2013 - follows with [facility]; completed chemotherapy in 2016 - stable and in remission Anion gap metabolic acidosis- resolved In the context of ongoing diarrhea and findings consistent with dehydration lactate 0.7 on admission but this was taken after several bags of fluid had been administered - suspect lactate was a component prior in addition to uremia Elevated Lipase-at 3000 on admission - Clinically does not appear c/w pancreatitis. Likely contributory from renal insufficiency, ?possibly intestinal inflammation, acidemia - CT-A/P as above, ample hydration Knee pain - ddx - patellar tenosynovitis - DURAN and jann; pain improved Insomnia - Mirtazapine 15 mg at bedtime for sleep, with the goal of a side benefit of improved appetite - addition of 5mg Melatonin 03/26 Left dorsal foot blister - wrapped - Pain managed with Tylenol PO - recommended elevation to reduce swelling Code: Full Diet: renal Prophylaxis: warfarin as prescribed Dispo: med/surg Admission and Anticipated Discharge Date Admission Date: March 22, 2022 Supervising Physician Co-Signing Physician Notes Resident Physician Supervision Note: I independently interviewed and examined the patient and verified the taylor history and physical, reviewed labs and image studies and agree with resident findings and care plan. Subjective Pt is a 77 yo male with PMH of multiple myeloma (s/p stem cell transplant), afib, mechanical aortic valve, HTN, dyslipidemia, and BPH who presented to the hospital with a 6 month history of worsening diarrhea. Patient was admitted to the hospital for acute kidney injury in association with anion gap metabolic acidosis. Pt seen at bedside this AM. He does not want his catheter removed until it is sure that he can be discharged because he doesn't want to be going to the bathroom "every 10 minutes." He is no longer having issues with diarrhea. Overall, he is feeling well. He denies chest pain, SOB, abdominal pains, or leg pains. Review of Systems Review of Systems: All systems reviewed & are unremarkable except as noted in HPI & below Physical Exam Constitutional: NAD. Vitals WNL. Eyes: Anicteric sclerae. Respiratory: CTA bilaterally. No rhonchi, wheezing, or crackles. Non labored breathing. Cardiovascular: Mechanical valve heard. No murmur. RRR. No LE edema. Psychiatric: Alert. Mood and affect congruent. Results & Data Results & Data ([facility]) Vital Signs (Past 12 Hours) Vital Signs Temp Pulse Resp BP Pulse Ox O2 Del Method 04/03/22 07:54 37 C 98 H 18 147/70 H 97 Room Air Resident Activity Tracking Resident Involvement: Resident Care Provided Care Provided: Adult Hospital Medicine
[2022-04-03] MEDS: CHOLESTYRAMINE LIGHT 4 GM PKT PO SCH ×2 (11:44→21:47)
--- NOTE | 2022-04-03 12:32 | Nephrology Progress Note ---
Date of Service April 03, 2022 Assessment & Plan (1) Acute kidney injury: (2) Hypertension: (3) Hypokalemia: (4) Anemia: (5) Metabolic acidosis: Plan 77 yo male with PMH Significant for multiple myeloma status post stem cell transplant, hypertension, BPH admitted to the hospital with ANDREA in the setting of 6 months history of diarrhea which worsen for 2 weeks prior to admission. On admission creatinine was 8.5 with multiple electrolyte abnormality including metabolic acidosis and hypokalemia. Renal function has been slowly improving with improvement in electrolyte. Has Chandler catheter and has been having decent urine output with overall net negative. -- Continue to monitor for recovery of renal function, encouraged to increase p.o. intake and aim for net even. -- continue the sodium bicarb current dose for now -- dose medications for EGFR less than 10 Admission and Anticipated Discharge Date Admission Date: March 22, 2022 Kimberly Swenson was seen and evaluated this morning. Overall he has been feeling well, denies shortness of breath, nausea or vomiting. Diarrhea has improved. Renal function continues to improve slowly, creatinine down to 5.6, electrolyte acceptable. Decent urine output with net negative more than 1 L over last 24 hours. Review of Systems Review of Systems: Detailed review of system was otherwise unremarkable except mentioned above. Physical Exam Constitutional: WD/WN, vitals as above no acute distress Neck: normal visual inspection Respiratory: Auscultation: lungs clear to auscultation bilaterally Cardiovascular: RRR, no murmur, no edema Skin: no rashes Neurologic: no focal motor deficits Psychiatric: Orientation: alert and oriented x 3 Results & Data ([facility]) Vital Signs (Past 12 Hours) Vital Signs Temp Pulse Resp BP Pulse Ox O2 Del Method 04/03/22 07:54 37 C 98 H 18 147/70 H 97 Room Air PG Care Time/CCT Total # of Minutes Spent Total Time Spent with Patient: Total time spent is greater than 50% in coordination of care (as documented) at patient's floor/unit and/or counseling patient: Coding Level of Care Code 92228 SUB INP/OBS CARE 3/50MIN Diagnoses Acute kidney injury N17.9 Hypertension I10 Hypokalemia E87.6 Anemia D64.9 Metabolic acidosis E87.20
[2022-04-03] MEDS ORDERED: WARFARIN SOD 2.5 MG TAB PO SCH (16:00)
[2022-04-03] MEDS ORDERED: WARFARIN SOD 5 MG TAB PO ONE (16:00)
[2022-04-03] MEDS ORDERED: WARFARIN SOD 2.5 MG TAB PO ONE (16:00)
[2022-04-03] MEDS: MELATONIN 3 MG TAB PO SCH (19:40)
[2022-04-03] MEDS: TAMSULOSIN HCL 0.4 MG CAP PO SCH (20:02)
[2022-04-03] MEDS: MIRTAZAPINE TAB 15 MG TAB PO SCH (20:02)
--- NOTE | 2022-04-04 07:42 | Hospitalist Progress Note ---
Date of Service April 04, 2022 Assessment & Plan (1) Diarrhea: (2) Acute kidney injury: (3) Atrial fibrillation: (4) Dyslipidemia: (5) Hypertension: (6) S/P AVR (aortic valve replacement): (7) H/O stem cell transplant: (8) Increased anion gap metabolic acidosis: (9) Supratherapeutic INR: (10) Elevated lipase: (11) Knee pain: (12) Urinary retention: Plan Pt is a 77 yo male with PMH of multiple myeloma (s/p stem cell transplant), afib, mechanical aortic valve, HTN, dyslipidemia, and BPH who presented to the hospital with a 6 month history of worsening diarrhea. Patient was admitted to the hospital for acute kidney injury in association with anion gap metabolic aci dosis. Acute on chronic watery diarrhea- resolved - etiology unknown; plan for outpatient colonoscopy - ESR 47, CRP 3.25 on arrival; no leukocytosis; lytes largely stable in setting of profound ANDREA - CTAP showed evidence of kidney and pancreatic mass requiring further evaluation w/ contrast scans - GI biofire neg, c diff neg, stool calprotectin neg, stool fat neg, VIP WNL, anti TTG neg, gastrin neg - FOBT pos - 24 Urinary 5-HIAA pending - recommend outpatient colonoscopy (last one >10 yrs ago) - Diarrhea improved with cholestyramine 4mg, imodium PRN. could consider weaning cholestyramine if continues to have no bowel movement ANDREA d/t poor oral fluid intake and diarrhea - Cr upon admission 8.50 - no hx of CKD; however, per [facility] [place], 10/2021 labs with Cr 1.7 - ANDREA secondary to intravascular depletion/dehydration with possible ATN component, likely compounded further by ongoing hydrochlorothiazide therapy in the setting of GI losses - Cr slowly improving; continuing to encourage adequate oral intake - per nephro, continue sodium bicarb (although pt refusing) Urinary retention - 03/29, bladder scanning showing 800 ml urine- cordero placed - no previous history; enlarged prostate on CT without hydronephrosis - began flomax 0.4 mg 04/01 Chronic anticoagulation on warfarin - On admission Mar 22 INR 8.5, suspect largely d/t poor PO intake - Apr 02 INR 2.3, restarted warfarin - Apr 03 INR 1.8, give additional 5 mg dose today for total 7.5 mg - Apr 04 INR 2.0, give additional 2.5 mg dose today for total 7.5 mg Paroxysmal afib - In sinus rhythm on arrival, rate controlled with metoprolol - INR goal: 2.53.0 due to mechanical valve - warfarin/INR management as above Anemia - Hgb stable, mostly 7-9 this admission - epogen given 03/28, 04/02 - continue to monitor Undifferentiated pancreatic and kidney masses - GI recommended pancreatic MRI w/ or w/o EUS - further differentiation necessary by CT w/ contrast Hyperlipidemia Continue statin Hypertension - Hold hydrochlorothiazide in setting of profound ANDREA as above - Pressures have been stable since arrival; reduced metoprolol dose to 25 mg twice daily for now, increase back to home dose of 50 mg twice daily once acute needs have stabilized Mechanical aortic valve replacement - warfarin management as above MM s/p stem cell transplant in 2013 - follows with [facility]; completed chemotherapy in 2015 - stable and in remission Anion gap metabolic acidosis- resolved In the context of ongoing diarrhea and findings consistent with dehydration lactate 0.7 on admission but this was taken after several bags of fluid had been administered - suspect lactate was a component prior in addition to uremia Elevated Lipase-at 3000 on admission - Clinically does not appear c/w pancreatitis. Likely contributory from renal insufficiency, ?possibly intestinal inflammation, acidemia - CTAP as above, ample hydration Knee pain - ddx - patellar tenosynovitis - DURAN and brace; pain improved Insomnia - Mirtazapine 15 mg at bedtime for sleep, with the goal of a side benefit of improved appetite - addition of 5mg Melatonin 03/26 Left dorsal foot blister - wrapped - pain managed with Tylenol PO - recommended elevation to reduce swelling Code: Full Diet: renal Prophylaxis: warfarin as prescribed Dispo: med/surg Admission and Anticipated Discharge Date Admission Date: March 22, 2022 Supervising Physician Co-Signing Physician Notes Resident Physician Supervision Note: I independently interviewed and examined the patient and verified the taylor history and physical, reviewed labs and image studies and agree with resident findings and care plan. Subjective Pt is a 77 yo male with PMH of multiple myeloma (s/p stem cell transplant), afib, mechanical aortic valve, HTN, dyslipidemia, and BPH who presented to the hospital with a 6 month history of worsening diarrhea. Patient was admitted to the hospital for acute kidney injury in association with anion gap metabolic acidosis. Pt was seen at bedside this AM. Feeling the same as previous days. No recurrence of diarrhea. Appetite is good. He denies chest pain, SOB, abdominal pains, and leg pains. Review of Systems Review of Systems: All systems reviewed & are unremarkable except as noted in HPI & below Physical Exam Constitutional: NAD. Vitals WNL. Eyes: no conjunctival abnormality Respiratory: CTA bilaterally. No rhonchi, wheezing, or crackles. Non labored breathing. Cardiovascular: Mechanical valve present. RRR. No murmur noted. No LL edema. Gastrointestinal (Abdomen): Nontender, +BS. No masses noted. Skin: Left foot dorsal blister wrapped. Dry w/o blister or pus on bandage. Psychiatric: Alert. Mood and affect congruent. Results & Data Results & Data ([facility]) Vital Signs (Past 12 Hours) Vital Signs Temp Pulse Resp BP Pulse Ox O2 Del Method 04/03/22 20:01 36.3 C L 83 17 165/72 H 100 Room Air Resident Activity Tracking Resident Involvement: Resident Care Provided Care Provided: Adult Hospital Medicine
[2022-04-04 08:13] LABS: Hematocrit (blood only) 21.7 % (42.0-52.0); Hemoglobin 7.3 g/dl (14.0-18.0); Mean Corpuscular Hemoglobin 29.9 pg (25.0-34.0); Mean Corpuscular Hgb Conc 33.6 g/dL (32.0-36.0); Mean Corpuscular Volume 88.9 fL (80.0-100.0); Mean Platelet Volume 11.3 fL (9.4-12.4); Platelet Count 146 K/uL (130-400); RDW Coefficient of Variation 13.2 % (11.5-14.5); RDW Standard Deviation 42.4 fL (36.4-46.3); Red Blood Count 2.44 M/uL (4.70-6.10); White Blood Count 5.64 K/ul (4.8-10.8)
[2022-04-04 08:37] LABS: Prothrombin Time 20.5 Seconds (9.0-12.0)
[2022-04-04 08:46] LABS: BUN Creatinine Ratio 11.9 (10-20); Calcium 7.6 mg/dl (8.5-10.1); Creatinine Clr Calc Pharmacy 11.3 ml/min; Est GFR (African American) 10.9 ml/min; Est GFR (Non-African American) 9.4 ml/min; Potassium 3.9 mmol/L (3.5-5.1)
[2022-04-04] MEDS: CHOLECALCIFEROL 1,000 UNITS 25 MCG TAB PO SCH (09:31)
[2022-04-04] MEDS: METOPROLOL TARTRATE 25 MG TAB PO SCH ×2 (09:31→21:45)
[2022-04-04] MEDS: SIMVASTATIN 20 MG TAB PO SCH (09:31)
[2022-04-04] MEDS: SODIUM BICARBONATE 650 MG TAB PO SCH ×3 (09:53→21:54)
[2022-04-04] MEDS: CHOLESTYRAMINE LIGHT 4 GM PKT PO SCH ×2 (09:53→21:46)
--- NOTE | 2022-04-04 10:43 | Nephrology Progress Note ---
Date of Service April 04, 2022 Assessment & Plan (1) Acute kidney injury: (2) Hypertension: (3) Hypokalemia: (4) Anemia: (5) Metabolic acidosis: Plan 77 yo male with PMH Significant for multiple myeloma status post stem cell transplant, hypertension, BPH admitted to the hospital with ANDREA in the setting of 6 months history of diarrhea which worsen for 2 weeks prior to admission. On admission creatinine was 8.5 with multiple electrolyte abnormality including metabolic acidosis and hypokalemia. Renal function has been slowly improving with improvement in electrolyte. Has Chandler catheter and has been having decent urine output with overall net negative. -- slow recovery of renal function, encouraged to increase p.o. intake and aim for net even. -- continue the sodium bicarb current dose for now -- dose medications for EGFR less than 10 Admission and Anticipated Discharge Date Admission Date: March 22, 2022 Kimberly Swenson was seen and evaluated this morning. Overall he has been feeling well, denies shortness of breath, nausea or vomiting. Diarrhea resolved. Renal function continues to improve slowly, creatinine down to 5.4, electrolyte acceptable. Decent urine output. BP acceptable. Review of Systems Review of Systems: Detailed review of system was otherwise unremarkable except mentioned above. Physical Exam Constitutional: WD/WN, vitals as above no acute distress Neck: normal visual inspection Respiratory: Auscultation: lungs clear to auscultation bilaterally Cardiovascular: RRR, no murmur, no edema Skin: no rashes Neurologic: no focal motor deficits Psychiatric: Orientation: alert and oriented x 3 Results & Data ([facility]) Vital Signs (Past 12 Hours) Vital Signs Temp Pulse Resp BP Pulse Ox O2 Del Method 04/04/22 08:08 37.0 C 96 H 18 158/69 H 98 Room Air PG Care Time/CCT Total # of Minutes Spent Total Time Spent with Patient: Total time spent is greater than 50% in coordination of care (as documented) at patient's floor/unit and/or counseling patient: Coding Level of Care Code 38588 SUB INP/OBS CARE 2/35MIN Diagnoses Acute kidney injury N17.9 Hypertension I10 Hypokalemia E87.6 Anemia D64.9 Metabolic acidosis E87.20
[2022-04-04] MEDS: CALCITRIOL 0.25 MCG CAPSULE PO SCH (11:44)
[2022-04-04] MEDS ORDERED: WARFARIN SOD 2.5 MG TAB PO ONE (16:00)
[2022-04-04] MEDS: WARFARIN SOD 5 MG TAB PO SCH (17:01)
[2022-04-04] MEDS: MIRTAZAPINE TAB 15 MG TAB PO SCH (21:44)
[2022-04-04] MEDS: TAMSULOSIN HCL 0.4 MG CAP PO SCH (21:44)
[2022-04-04] MEDS: MELATONIN 3 MG TAB PO SCH ×2 (21:47→21:54)
--- NOTE | 2022-04-05 08:26 | Hospitalist Progress Note ---
Date of Service April 05, 2022 Assessment & Plan (1) Diarrhea: (2) Acute kidney injury: (3) Atrial fibrillation: (4) Dyslipidemia: (5) Hypertension: (6) S/P AVR (aortic valve replacement): (7) H/O stem cell transplant: (8) Increased anion gap metabolic acidosis: (9) Supratherapeutic INR: (10) Elevated lipase: (11) Knee pain: (12) Urinary retention: Plan Pt is a 77 yo male with PMH of multiple myeloma (s/p stem cell transplant), afib, mechanical aortic valve, HTN, dyslipidemia, and BPH who presented to the hospital with a 6 month history of worsening diarrhea. Patient was admitted to the hospital for acute kidney injury in association with anion gap metabolic aci dosis. Acute on chronic watery diarrhea- resolved - etiology unknown; plan for outpatient colonoscopy - ESR 47, CRP 3.25 on arrival; no leukocytosis; lytes largely stable in setting of profound ANDREA - CTAP showed evidence of kidney and pancreatic mass requiring further evaluation w/ contrast scans - GI biofire neg, c diff neg, stool calprotectin neg, stool fat neg, VIP WNL, anti TTG neg, gastrin neg - FOBT pos - 24 Urinary 5-HIAA pending - recommend outpatient colonoscopy (last one >10 yrs ago) - Diarrhea improved with cholestyramine 4mg, imodium PRN. Held cholestyramine 04/05 no bowel movement ANDREA d/t poor oral fluid intake and diarrhea - Cr upon admission 8.50 - no hx of CKD; however, per [facility] [place] notes, 10/2021 labs with Cr 1.7 - ANDREA secondary to intravascular depletion/dehydration with possible ATN component, likely compounded further by ongoing hydrochlorothiazide therapy in the setting of GI losses - Cr slowly improving; continuing to encourage adequate oral intake - per nephro, continue sodium bicarb (although pt refusing) - 04/05 Cr 5.28 Urinary retention - 03/29, bladder scanning showing 800 ml urine- cordero placed - no previous history; enlarged prostate on CT without hydronephrosis - began flomax 0.4 mg 04/01, consider voiding trial Chronic anticoagulation on warfarin - On admission Mar 22 INR 8.5, suspect largely d/t poor PO intake - Apr 02 INR 2.3, restarted warfarin - Apr 03 INR 1.8, give additional 5 mg dose today for total 7.5 mg - Mar 12 INR 2.0, give additional 2.5 mg dose today for total 7.5 mg - Apr 05 INR 3.6 Hold warfarin Paroxysmal afib - In sinus rhythm on arrival, rate controlled with metoprolol - INR goal: 2.53.0 due to mechanical valve - warfarin/INR management as above Anemia - Hgb stable, mostly 7-9 this admission - epogen given 03/28, 04/02, 04/05 - Hgb 6.8, 1u pRBC 04/05 - continue to monitor Undifferentiated pancreatic and kidney masses - GI recommended pancreatic MRI w/ or w/o EUS - further differentiation necessary by CT w/ contrast Hyperlipidemia Continue statin Hypertension - Hold hydrochlorothiazide in setting of profound ANDREA as above - Pressures have been stable since arrival; reduced metoprolol dose to 25 mg twice daily for now, increase back to home dose of 50 mg twice daily once acute needs have stabilized Mechanical aortic valve replacement - warfarin management as above MM s/p stem cell transplant in 2013 - follows with [facility]; completed chemotherapy in 2015 - stable and in remission Anion gap metabolic acidosis- resolved In the context of ongoing diarrhea and findings consistent with dehydration lactate 0.7 on admission but this was taken after several bags of fluid had been administered - suspect lactate was a component prior in addition to uremia Elevated Lipase-at 3000 on admission - Clinically does not appear c/w pancreatitis. Likely contributory from renal insufficiency, ?possibly intestinal inflammation, acidemia - CTAP as above, ample hydration Knee pain - ddx - patellar tenosynovitis - RICE and brace; pain improved Insomnia - Mirtazapine 15 mg at bedtime for sleep, with the goal of a side benefit of improved appetite - addition of 5mg Melatonin 03/26 Left dorsal foot blister - wrapped - pain managed with Tylenol PO - recommended elevation to reduce swelling Code: Full Diet: renal Prophylaxis: warfarin as prescribed Dispo: med/surg Admission and Anticipated Discharge Date Admission Date: March 22, 2022 Supervising Physician Co-Signing Physician Notes I personally examined the patient and verified all taylor points of history and exam, discussed case, and agree with decision making with Garry Borrero MS4 no BM for a week, some bloating and abdominal distention vitals noted nad heent nc at mmm breathing unlabored no accessory muscles good effort skin no rashes no pallor or icterus neuro no focal deficits ARF - due most likely to prolonged prerenal insult from dehydration from diarrhea. no indications for acute HD. continue to follow - showing slow improvement diarrhea - w/u still underway, but diarrhea not only resolved - faded to constipation. otherwise as above Subjective Pt is a 77 yo male on hospital day 14 with PMH of multiple myeloma (s/p stem cell transplant), afib, mechanical aortic valve, HTN, dyslipidemia, and BPH who presented to the hospital with a 6 month history of worsening diarrhea. Patient was admitted to the hospital for acute kidney injury in association with anion gap metabolic acidosis. Pt was seen at bedside this AM. Feeling the same as previous days. No recurrence of diarrhea since 03/29. Passing gas. Appetite is good. He denies chest pain, SOB, abdominal pains, and leg pains. Review of Systems Review of Systems: See HPI Physical Exam Constitutional: well developed and + thin; no acute distress and not in distress Eyes: PERRL, conjunctivae normal, anicteric sclerae + anicteric sclerae; no corneal abnormality ENMT: external ear and nose normal, oropharynx normal Mouth: + dry oral mucous membranes; no oral mucosal abnormality Neck: trachea midline, no thyromegaly normal visual inspection and trachea midline Respiratory: normal respiratory effort, lungs clear to auscultation normal respiratory effort Auscultation: lungs clear to auscultation bilaterally and + crackles Cardiovascular: RRR, no murmur, no edema Rate/Rhythm: regular rate Heart Sounds: normal S1 and normal S2 Extremities: no edema Gastrointestinal (Abdomen): normal bowel sounds, soft, nontender, no hepatosplenomegaly Musculoskeletal: Extremities: no cyanosis (Left knee wrapped) and no clubbing Skin: normal turgor, + turgor decreased, + lesion (left dorsal foot) and + erythema; no jaundice Neurologic: Speech / Cognition: normal speech and normal cognition Motor /Sensory: no tremor and no asterixis Psychiatric: Orientation: alert and oriented x 3 Results & Data Results & Data ([facility]) Vital Signs (Past 12 Hours) Vital Signs Temp Pulse Resp BP Pulse Ox O2 Del Method 04/05/22 07:27 36.9 C 90 18 152/70 H 97 Room Air 04/04/22 20:30 Room Air 04/04/22 21:56 36.6 C 85 18 142/69 H 97 Room Air
[2022-04-05 08:43] LABS: Hematocrit (blood only) 20.5 % (42.0-52.0); Hemoglobin 6.8 g/dl (14.0-18.0); Mean Corpuscular Hemoglobin 29.7 pg (25.0-34.0); Mean Corpuscular Hgb Conc 33.2 g/dL (32.0-36.0); Mean Corpuscular Volume 89.5 fL (80.0-100.0); Mean Platelet Volume 11.1 fL (9.4-12.4); Platelet Count 149 K/uL (130-400); RDW Coefficient of Variation 13.5 % (11.5-14.5); RDW Standard Deviation 44.1 fL (36.4-46.3); Red Blood Count 2.29 M/uL (4.70-6.10); White Blood Count 4.97 K/ul (4.8-10.8)
[2022-04-05 08:47] LABS: BUN Creatinine Ratio 12.7 (10-20); Calcium 7.5 mg/dl (8.5-10.1); Creatinine Clr Calc Pharmacy 11.5 ml/min; Est GFR (African American) 11.1 ml/min; Est GFR (Non-African American) 9.6 ml/min; Potassium 3.7 mmol/L (3.5-5.1)
[2022-04-05 09:07] LABS: INR 3.6 (0.9-1.1); Prothrombin Time 35.4 Seconds (9.0-12.0)
[2022-04-05] MEDS: CALCITRIOL 0.25 MCG CAPSULE PO SCH (09:39)
[2022-04-05] MEDS: SODIUM BICARBONATE 650 MG TAB PO SCH ×2 (09:39→20:56)
[2022-04-05] MEDS: METOPROLOL TARTRATE 25 MG TAB PO SCH ×2 (09:39→20:55)
[2022-04-05] MEDS: CHOLECALCIFEROL 1,000 UNITS 25 MCG TAB PO SCH (09:40)
[2022-04-05] MEDS: SIMVASTATIN 20 MG TAB PO SCH (09:40)
[2022-04-05] MEDS ORDERED: SODIUM CHLORIDE 0.9% 250 ML IV PRN ×2 (09:58→10:54)
--- NOTE | 2022-04-05 10:26 | Nephrology Progress Note ---
Date of Service April 05, 2022 Assessment & Plan (1) Acute kidney injury: (2) Hypertension: (3) Hypokalemia: (4) Anemia: (5) Metabolic acidosis: Plan 77 yo male with PMH significant for multiple myeloma status post stem cell transplant, hypertension, BPH admitted to the hospital with ANDREA in the setting of 6 months history of diarrhea which worsen for 2 weeks prior to admission. On admission creatinine was 8.5 with multiple electrolyte abnormality including metabolic acidosis and hypokalemia. Renal function has been slowly improving with improvement in electrolyte. Has Chandler catheter and has been having decent urine output with overall net negative. Renal function continues to recover but very slowly, hb dropped to 6.8, adequate iron store, getting CHRISTIANA. -- encouraged to increase p.o. intake and aim for net even. -- continue the sodium bicarb current dose for now --CHRISTIANA 94630 units today, may need PRBC --dose medications for eGFR less than 10 Admission and Anticipated Discharge Date Admission Date: March 22, 2022 Kimberly Swenson was seen and evaluated this morning. Overall he has been feeling well except discomfort with constipation, denies shortness of breath, nausea or vomiting. Renal function continues to improve slowly, creatinine down to 5.3, electrolyte acceptable. Hb dropped to 6.8. Decent urine output. BP acceptable. Review of Systems Review of Systems: Detailed review of system was otherwise unremarkable except mentioned above. Physical Exam Constitutional: WD/WN, vitals as above no acute distress Neck: normal visual inspection Respiratory: Auscultation: lungs clear to auscultation bilaterally Cardiovascular: RRR, no murmur, no edema Skin: no rashes Neurologic: no focal motor deficits Psychiatric: Orientation: alert and oriented x 3 Results & Data ([facility]) Vital Signs (Past 12 Hours) Vital Signs Temp Pulse Resp BP Pulse Ox O2 Del Method 04/05/22 09:37 99 H 132/62 04/05/22 07:27 36.9 C 90 18 152/70 H 97 Room Air PG Care Time/CCT Total # of Minutes Spent Total Time Spent with Patient: Total time spent is greater than 50% in coordination of care (as documented) at patient's floor/unit and/or counseling patient: Coding Level of Care Code 26473 SUB INP/OBS CARE 2/35MIN Diagnoses Acute kidney injury N17.9 Hypertension I10 Hypokalemia E87.6 Anemia D64.9 Metabolic acidosis E87.20
[2022-04-05] MEDS ORDERED: EPOETIN ALFA 20,000 UNITS/ML VIAL SQ STA (10:34)
[2022-04-05] MEDS ORDERED: POLYETHYLENE (MIRALAX) 17 GM PACK PO PRN (12:15)
[2022-04-05] MEDS ORDERED: DOCUSATE SODIUM/SENNA 50/8.6MG TAB PO ONE (12:16)
--- NOTE | 2022-04-05 18:37 | Billing Data ---
Date of Service April 05, 2022 Coding Level of Care Code 08671 SUB INP/OBS CARE
[2022-04-05] MEDS: ACETAMINOPHEN 325 MG TAB PO PRN (19:00)
[2022-04-05] MEDS: TAMSULOSIN HCL 0.4 MG CAP PO SCH (20:55)
[2022-04-05] MEDS: MIRTAZAPINE TAB 15 MG TAB PO SCH (20:56)
[2022-04-05] MEDS: MELATONIN 3 MG TAB PO SCH (20:56)
[2022-04-06 08:14] LABS: Hematocrit (blood only) 25.5 % (42.0-52.0); Hemoglobin 8.6 g/dl (14.0-18.0); Mean Corpuscular Hemoglobin 30.1 pg (25.0-34.0); Mean Corpuscular Hgb Conc 33.7 g/dL (32.0-36.0); Mean Corpuscular Volume 89.2 fL (80.0-100.0); Platelet Count 166 K/uL (130-400); RDW Coefficient of Variation 13.6 % (11.5-14.5); RDW Standard Deviation 44.4 fL (36.4-46.3); Red Blood Count 2.86 M/uL (4.70-6.10); White Blood Count 5.51 K/ul (4.8-10.8)
[2022-04-06] MEDS: CALCITRIOL 0.25 MCG CAPSULE PO SCH (08:38)
[2022-04-06] MEDS: CHOLECALCIFEROL 1,000 UNITS 25 MCG TAB PO SCH (08:38)
[2022-04-06] MEDS: SODIUM BICARBONATE 650 MG TAB PO SCH ×2 (08:39→20:43)
[2022-04-06 08:40] LABS: Albumin Level 2.9 gm/dl (3.4-5.0); BUN Creatinine Ratio 11.9 (10-20); Calcium 7.9 mg/dl (8.5-10.1); Creatinine Clr Calc Pharmacy 11.6 ml/min; Est GFR (African American) 11.3 ml/min; Est GFR (Non-African American) 9.7 ml/min; Phosphorus 5.1 mg/dl (2.5-4.9)
[2022-04-06] MEDS: SIMVASTATIN 20 MG TAB PO SCH (08:40)
[2022-04-06] MEDS: METOPROLOL TARTRATE 25 MG TAB PO SCH ×2 (08:40→20:43)
[2022-04-06 08:49] LABS: INR 5.1 (0.9-1.1)
[2022-04-06] MEDS: ACETAMINOPHEN 325 MG TAB PO PRN ×2 (08:53→20:41)
[2022-04-06] MEDS ORDERED: SODIUM CHLORIDE 0.9% 500 ML IV SCH (09:45)
--- NOTE | 2022-04-06 10:16 | Nephrology Progress Note ---
Date of Service April 06, 2022 Assessment & Plan (1) Acute kidney injury: (2) Hypertension: (3) Hypokalemia: (4) Anemia: (5) Metabolic acidosis: Plan 77 yo male with PMH significant for multiple myeloma status post stem cell transplant, hypertension, BPH admitted to the hospital with ANDREA in the setting of 6 months history of diarrhea which worsen for 2 weeks prior to admission. On admission creatinine was 8.5 with multiple electrolyte abnormality including metabolic acidosis and hypokalemia. Renal function has been slowly improving with improvement in electrolyte. Has Chandler catheter and has been having decent urine output with overall net negative. Renal function recover somewhat stalled, creatinine staying around 5.2-5.3, electrolyte acceptable. Clinically looks volume depleted. --start on normal saline at 80 mL/hour, encouraged to increase p.o. intake and aim for net even. -- continue the sodium bicarb current dose for now --CHRISTIANA 95794 units today, may need PRBC --dose medications for eGFR less than 10 Admission and Anticipated Discharge Date Admission Date: March 22, 2022 Kimberly Swenson was seen and evaluated this morning. Overall he has been feeling about the same but has discomfort with constipation, no shortness of breath, nausea or vomiting. Renal function staying somewhat stable over last few days, creatin ine staying around 5.3-5.4, has metabolic acidosis. Potassium normal. creatinine down to 5.3, electrolyte acceptable. Decent urine output, net negative more than 1.5 L. BP acceptable. Review of Systems Review of Systems: Detailed review of system was otherwise unremarkable except mentioned above. Physical Exam Constitutional: WD/WN, vitals as above no acute distress Neck: normal visual inspection Respiratory: Auscultation: lungs clear to auscultation bilaterally Cardiovascular: RRR, no murmur, no edema Skin: no rashes Neurologic: no focal motor deficits Psychiatric: Orientation: alert and oriented x 3 Results & Data ([facility]) Vital Signs (Past 12 Hours) Vital Signs Temp Pulse Resp BP Pulse Ox O2 Del Method 04/06/22 07:40 36.7 C 89 16 132/69 98 Room Air PG Care Time/CCT Total # of Minutes Spent Total Time Spent with Patient: Total time spent is greater than 50% in coordination of care (as documented) at patient's floor/unit and/or counseling patient: Coding Level of Care Code 62964 SUB INP/OBS CARE 350MIN Diagnoses Acute kidney injury N17.9 Hypertension I10 Hypokalemia E87.6 Anemia D64.9 Metabolic acidosis E87.20
[2022-04-06] MEDS: SODIUM CHLORIDE 0.9% 1000ML 1,000 ML IV SCH (12:23)
--- NOTE | 2022-04-06 12:42 | Hospitalist Progress Note ---
Date of Service April 06, 2022 Assessment & Plan (1) Diarrhea: (2) Acute kidney injury: (3) Atrial fibrillation: (4) Dyslipidemia: (5) Hypertension: (6) S/P AVR (aortic valve replacement): (7) H/O stem cell transplant: (8) Increased anion gap metabolic acidosis: (9) Supratherapeutic INR: (10) Elevated lipase: (11) Knee pain: (12) Urinary retention: Plan Pt is a 77 yo male with PMH of multiple myeloma (s/p stem cell transplant), afib, mechanical aortic valve, HTN, dyslipidemia, and BPH who presented to the hospital with a 6 month history of worsening diarrhea. Patient was admitted to the hospital for acute kidney injury in association with anion gap metabolic a cidosis. Constipation - In the setting of resolved diarrhea, last bowel movement 03/29 - Scheduled Senna, Miralax PRN Acute on chronic watery diarrhea- resolved - etiology unknown; plan for outpatient colonoscopy - ESR 47, CRP 3.25 on arrival; no leukocytosis; lytes largely stable in setting of profound ANDREA - CTAP showed evidence of kidney and pancreatic mass requiring further evaluation w/ contrast scans - GI biofire neg, c diff neg, stool calprotectin neg, stool fat neg, VIP WNL, anti TTG neg, gastrin neg - FOBT pos - 24 Urinary 5-HIAA pending - recommend outpatient colonoscopy (last one >10 yrs ago) - Diarrhea improved with cholestyramine 4mg, imodium PRN. Held cholestyramine 04/05 ANDREA d/t poor oral fluid intake and diarrhea - Cr upon admission 8.50 - no hx of CKD; however, per [facility] notes, 10/2021 labs with Cr 1.7 - ANDREA secondary to intravascular depletion/dehydration with possible ATN component, likely compounded further by ongoing hydrochlorothiazide therapy in the setting of GI losses - Cr slowly improving; continuing to encourage adequate oral intake - per nephro, continue sodium bicarb (although pt refusing) - 04/05 Cr 5.23, fluids restarted NS 80 mL/hr 1L Urinary retention - 03/29, bladder scanning showing 800 ml urine- cordero placed - no previous history; enlarged prostate on CT without hydronephrosis - began flomax 0.4 mg 04/01, consider voiding, patient prefers to keep cordero until constipation resolves Chronic anticoagulation on warfarin - On admission Mar 22 INR 8.5, suspect largely d/t poor PO intake - Apr 02 INR 2.3, restarted warfarin - Apr 03 INR 1.8, give additional 5 mg dose today for total 7.5 mg - Mar 12 INR 2.0, give additional 2.5 mg dose today for total 7.5 mg - Mar 13 INR 3.6 Hold warfarin - Mar 14 INR 5.1 Hold warfarin Paroxysmal afib - In sinus rhythm on arrival, rate controlled with metoprolol - INR goal: 2.53.0 due to mechanical valve - warfarin/INR management as above Anemia - Hgb stable, mostly 7-9 this admission - epogen given 03/28, 04/02, 04/05, 04/06 - Hgb 6.8, 1u pRBC 04/05 - Hgb 8.6 - continue to monitor Undifferentiated pancreatic and kidney masses - GI recommended pancreatic MRI w/ or w/o EUS - further differentiation necessary by CT w/ contrast Hyperlipidemia Continue statin Hypertension - Hold hydrochlorothiazide in setting of profound ANDREA as above - Pressures have been stable since arrival; reduced metoprolol dose to 25 mg twice daily for now, increase back to home dose of 50 mg twice daily once acute needs have stabilized Mechanical aortic valve replacement - warfarin management as above MM s/p stem cell transplant in 2013 - follows with [facility]; completed chemotherapy in 2016 - stable and in remission Anion gap metabolic acidosis- resolved In the context of ongoing diarrhea and findings consistent with dehydration lactate 0.7 on admission but this was taken after several bags of fluid had been administered - suspect lactate was a component prior in addition to uremia Elevated Lipase-at 3000 on admission - Clinically does not appear c/w pancreatitis. Likely contributory from renal insufficiency, ?possibly intestinal inflammation, acidemia - CTAP as above, ample hydration Knee pain - ddx - patellar tenosynovitis - RICE and brace; pain improved at rest Insomnia - Mirtazapine 15 mg at bedtime for sleep, with the goal of a side benefit of improved appetite - addition of 5mg Melatonin 03/26, patient refusing Left dorsal foot, Right martinez blister - wrapped - pain managed with Tylenol PO - recommended elevation to reduce swelling Code: Full Diet: renal Prophylaxis: INR supratherapeutic, Warfarin held Dispo: med/surg Admission and Anticipated Discharge Date Admission Date: March 22, 2022 Supervising Physician Co-Signing Physician Notes I personally examined the patient and verified all taylor points of history and exam, discussed case, and agree with decision making with S Gissell MS4 Still no bowel movement. Had been refusing MiraLAX because he thought it was the same thing as cholestyramine. Discussed the difference. present. Answered all questions the best my ability. vitals noted nad heent nc at mmm breathing unlabored no accessory muscles good effort skin no rashes no pallor or icterus neuro no focal deficits ARF - due most likely to prolonged prerenal insult from dehydration from diarrhea. no indications for acute HD. continue to follow -plateaued once again, but no acute indications for dialysis at this time. diarrhea - w/u still underway, but diarrhea not only resolved - faded to constipation. Given that it essentially has abated in spite of it being fairly severe and chronic at [place] enough that it was almost certainly the nidus leading to the dehydration that led to his renal failureI discussed with patient and that it is possible he could have had some sort of exposure and life outside the hospital leading to the diarrhea. At this point, extensive/broad work-up negative, colonoscopy pending as outpatient in the near future, but will also want to pay close attention to his home and work environments after discharge as well as bowel habits once he is no longer in the hospital. otherwise as above Subjective 77 yo male hospital day 15 for chronic diarrhea and prerenal ANDREA. Feels well. No diarrhea since 03/29 but now has constipation. 2 tabs Senna on 04/05. Miralax PRN available. Patient preference keep cordero until constipation resolves and diarrhea does not return. New blister on right martinez. Left knee pain improved. Left foot blister wrapped, not painful or draining. No nausea/vomiting, abdominal pain, dizziness, or shortness of breath. Review of Systems Review of Systems: See HPI Physical Exam Constitutional: well developed and + thin; no acute distress and not in distre ss Eyes: PERRL, conjunctivae normal, anicteric sclerae + anicteric sclerae; no corneal abnormality ENMT: external ear and nose normal, oropharynx normal Mouth: + dry oral mucous membranes; no oral mucosal abnormality Neck: trachea midline, no thyromegaly normal visual inspection and trachea midline Respiratory: normal respiratory effort, lungs clear to auscultation normal respiratory effort Auscultation: lungs clear to auscultation bilaterally Cardiovascular: RRR, no murmur, no edema Rate/Rhythm: regular rate Heart Sounds: normal S1 and normal S2 Extremities: no edema Gastrointestinal (Abdomen): normal bowel sounds, soft, nontender, no hepatosplenomegaly Musculoskeletal: Extremities: no cyanosis (Left knee wrapped) and no clubbing Skin: normal turgor, + turgor decreased, + lesion (left dorsal foot) and + erythema; no jaundice Neurologic: Speech / Cognition: normal speech and normal cognition Motor/Sensory: no tremor and no asterixis Psychiatric: Orientation: alert and oriented x 3 Results & Data Results & Data ([facility]) Vital Signs (Past 12 Hours) Vital Signs Temp Pulse Resp BP Pulse Ox O2 Del Method 04/06/22 07:40 36.7 C 89 16 132/69 98 Room Air Laboratory Results 04/06/22 07:57 04/06/22 07:57
--- NOTE | 2022-04-06 19:52 | Billing Data ---
Date of Service April 06, 2022 Coding Level of Care Code 25447 SUB INP/OBS CARE 3MIN
[2022-04-06] MEDS: TAMSULOSIN HCL 0.4 MG CAP PO SCH (20:43)
[2022-04-06] MEDS: MIRTAZAPINE TAB 15 MG TAB PO SCH (20:43)
[2022-04-06] MEDS: MELATONIN 3 MG TAB PO SCH (20:43)
[2022-04-07] MEDS: SODIUM CHLORIDE 0.9% 1000ML 1,000 ML IV SCH ×3 (04:28→22:41)
--- NOTE | 2022-04-07 08:11 | Hospitalist Progress Note ---
Date of Service April 07, 2022 Assessment & Plan (1) Diarrhea: (2) Acute kidney injury: (3) Atrial fibrillation: (4) Dyslipidemia: (5) Hypertension: (6) S/P AVR (aortic valve replacement): (7) H/O stem cell transplant: (8) Increased anion gap metabolic acidosis: (9) Supratherapeutic INR: (10) Elevated lipase: (11) Knee pain: (12) Urinary retention: Plan Pt is a 77 yo male with PMH of multiple myeloma (s/p stem cell transplant), afib, mechanical aortic valve, HTN, dyslipidemia, and BPH who presented to the hospital with a 6 month history of worsening diarrhea. Patient was admitted to the hospital for acute kidney injury in association with anion gap metabolic a cidosis. Constipation - In the setting of resolved diarrhea, last bowel movement 03/29 - Scheduled Senna, Miralax PRN Acute on chronic watery diarrhea- resolved - etiology unknown; plan for outpatient colonoscopy - ESR 47, CRP 3.25 on arrival; no leukocytosis; lytes largely stable in setting of profound ANDREA - CTAP showed evidence of kidney and pancreatic mass requiring further evaluation w/ contrast scans - GI biofire neg, c diff neg, stool calprotectin neg, stool fat neg, VIP WNL, anti TTG neg, gastrin neg - FOBT pos - 24 Urinary 5-HIAA pending - recommend outpatient colonoscopy (last one >10 yrs ago) - Diarrhea improved with cholestyramine 4mg, imodium PRN. Held cholestyramine 04/05 ANDREA d/t poor oral fluid intake and diarrhea - Cr upon admission 8.50 - no hx of CKD; however, per [facility] notes, 10/2021 labs with Cr 1.7 - ANDREA secondary to intravascular depletion/dehydration with possible ATN component, likely compounded further by ongoing hydrochlorothiazide therapy in the setting of GI losses - Cr slowly improving; continuing to encourage adequate oral intake - per nephro, continue sodium bicarb (although pt refusing) - 04/05 Cr 5.23, fluids restarted NS 80 mL/hr 1L - 04/06 Cr 5.02 Urinary retention - 03/29, bladder scanning showing 800 ml urine- cordero placed - no previous history; enlarged prostate on CT without hydronephrosis - began flomax 0.4 mg 04/01, consider voiding, patient prefers to keep cordero until constipation resolves Chronic anticoagulation on warfarin - On admission Mar 22 INR 8.5, suspect largely d/t poor PO intake - Apr 02 INR 2.3, restarted warfarin - Apr 03 INR 1.8, give additional 5 mg dose today for total 7.5 mg - Mar 12 INR 2.0, give additional 2.5 mg dose today for total 7.5 mg - Apr 05 INR 3.6 Hold warfarin - b 14 INR 5.1 Hold warfarin - Mar 15 INR 5.5 Hold warfarin Paroxysmal afib - In sinus rhythm on arrival, rate controlled with metoprolol - INR goal: 2.53.0 due to mechanical valve - warfarin/INR management as above Anemia - Hgb stable, mostly 7-9 this admission - epogen given 03/28, 04/02, 04/05, 04/06, - Hgb 6.8, 1u pRBC 04/05 - Hgb 8.2 today 04/07 - continue to monitor Undifferentiated pancreatic and kidney masses - GI recommended pancreatic MRI w/ or w/o EUS - further differentiation necessary by CT w/ contrast Hyperlipidemia Continue statin Hypertension - Hold hydrochlorothiazide in setting of profound ANDREA as above - Pressures have been stable since arrival; reduced metoprolol dose to 25 mg twice daily for now, increase back to home dose of 50 mg twice daily once acute needs have stabilized Mechanical aortic valve replacement - warfarin management as above MM s/p stem cell transplant in 2013 - follows with [facility]; completed chemotherapy in 2016 - stable and in remission Anion gap metabolic acidosis- resolved In the context of ongoing diarrhea and findings consistent with dehydration lactate 0.7 on admission but this was taken after several bags of fluid had been administered - suspect lactate was a component prior in addition to uremia Elevated Lipase-at 3000 on admission - Clinically does not appear c/w pancreatitis. Likely contributory from renal insufficiency, ?possibly intestinal inflammation, acidemia - CTAP as above, ample hydration Knee pain - ddx - patellar tenosynovitis - RICE and brace; pain improved at rest Insomnia - Mirtazapine 15 mg at bedtime for sleep, with the goal of a side benefit of improved appetite - addition of 5mg Melatonin 03/26, patient refusing Left dorsal foot, Right martinez blister - wrapped - pain managed with Tylenol PO - recommended elevation to reduce swelling Code: Full Diet: renal Prophylaxis: INR supratherapeutic, Warfarin held Dispo: med/surg Admission and Anticipated Discharge Date Admission Date: March 22, 2022 Supervising Physician Co-Signing Physician Notes I personally examined the patient and verified all taylor points of history and exam, discussed case, and agree with decision making with S Gissell MS4 only small BM at most belly feels about the same but also only has taken one dose of miralax vitals noted nad heent nc at mmm breathing unlabored no accessory muscles good effort skin no rashes no pallor or icterus neuro no focal deficits ARF - due most likely to prolonged prerenal insult from dehydration from diarrhea. no indications for acute HD. continue to follow -plateaued once again, but no acute indications for dialysis at this time. diarrhea - w/u still underway, but diarrhea not only resolved - faded to c onstipation. Given that it essentially has abated in spite of it being fairly severe and chronic at [place] enough that it was almost certainly the nidus leading to the dehydration that led to his renal failure on 04/06, I discussed with patient and that it is possible he could have had some sort of exposure and life outside the hospital leading to the diarrhea. At this point, extensive/broad work-up negative, colonoscopy pending as outpatient in the near future, but will also want to pay close attention to his home and work environments after discharge as well as bowel habits once he is no longer in the hospital. miralax for constipation otherwise as above Subjective 77 yo male hospital day 15 for chronic diarrhea and prerenal ANDREA. Feels well. No diarrhea since 03/29 but now has constipation. 2 tabs Senna on 04/05. Miralax PRN available, will try today as belly feels full/uncomfortable. Patient preference keep cordero until constipation resolves and diarrhea does not return. New blister on right martinez. Left knee pain improved. Left foot blister wrapped, not painful or draining. No nausea/vomiting, abdominal pain, dizziness, or shortness of breath. Received IV fluids yesterday. Review of Systems Review of Systems: See HPI Physical Exam Constitutional: well developed and + thin; no acute distress and not in distress Eyes: PERRL, conjunctivae normal, anicteric sclerae + anicteric sclerae; no corneal abnormality ENMT: external ear and nose normal, oropharynx normal Mouth: + dry oral mucous membranes; no oral mucosal abnormality Neck: trachea midline, no thyromegaly normal visual inspection and trachea midline Respiratory: normal respiratory effort, lungs clear to auscultation normal respiratory effort Auscultation: lungs clear to auscultation bilaterally and + crackles Cardiovascular: RRR, no murmur, no edema Rate/Rhythm: regular rate Heart Sounds: normal S1 and normal S2 Extremities: no edema Gastrointestinal (Abdomen): normal bowel sounds, soft, nontender, no hepatosplenomegaly Musculoskeletal: Extremities: no cyanosis (Left knee wrapped) and no clubbing Skin: normal turgor, + turgor decreased, + lesion (left dorsal foot) and + erythema; no jaundice Neurologic: Speech / Cognition: normal speech and normal cognition Motor/Sensory: no tremor and no asterixis Psychiatric: Orientation: alert and oriented x 3 Results & Data Results & Data ([facility]) Vital Signs (Past 12 Hours) Vital Signs Temp Pulse Resp BP Pulse Ox O2 Del Method 04/06/22 20:30 Room Air 04/06/22 20:44 36.6 C 83 18 157/71 H 94 Room Air Laboratory Results 04/07/22 07:53 04/07/22 07:53
[2022-04-07 08:17] LABS: Hematocrit (blood only) 24.9 % (42.0-52.0); Hemoglobin 8.2 g/dl (14.0-18.0); Mean Corpuscular Hemoglobin 29.6 pg (25.0-34.0); Mean Corpuscular Hgb Conc 32.9 g/dL (32.0-36.0); Mean Corpuscular Volume 89.9 fL (80.0-100.0); Mean Platelet Volume 10.4 fL (9.4-12.4); Platelet Count 173 K/uL (130-400); RDW Coefficient of Variation 13.8 % (11.5-14.5); Red Blood Count 2.77 M/uL (4.70-6.10); White Blood Count 5.75 K/ul (4.8-10.8)
[2022-04-07 08:49] LABS: Albumin Level 3.2 gm/dl (3.4-5.0); Calcium 7.7 mg/dl (8.5-10.1); Creatinine Clr Calc Pharmacy 12.1 ml/min; Est GFR (African American) 11.8 ml/min; Est GFR (Non-African American) 10.2 ml/min; Phosphorus 4.6 mg/dl (2.5-4.9); Potassium 3.8 mmol/L (3.5-5.1); Prothrombin Time 53.5 Seconds (9.0-12.0)
[2022-04-07] MEDS: METOPROLOL TARTRATE 25 MG TAB PO SCH ×2 (08:49→21:39)
[2022-04-07] MEDS: CALCITRIOL 0.25 MCG CAPSULE PO SCH (08:49)
[2022-04-07 08:50] LABS: INR 5.5 (0.9-1.1)
[2022-04-07] MEDS: CHOLECALCIFEROL 1,000 UNITS 25 MCG TAB PO SCH (08:50)
[2022-04-07] MEDS: ERGOCALCIFEROL 50,000 UNITS 1250 MCG CAP PO SCH (08:50)
[2022-04-07] MEDS: SODIUM BICARBONATE 650 MG TAB PO SCH ×3 (08:50→21:43)
[2022-04-07] MEDS: SIMVASTATIN 20 MG TAB PO SCH (08:50)
[2022-04-07] MEDS: ACETAMINOPHEN 325 MG TAB PO PRN (08:55)
[2022-04-07] MEDS ORDERED: SODIUM CHLORIDE 0.9% 500 ML IV SCH (09:30)
--- NOTE | 2022-04-07 09:48 | Nephrology Progress Note ---
Date of Service April 07, 2022 Assessment & Plan (1) Acute kidney injury: (2) Hypertension: (3) Hypokalemia: (4) Anemia: (5) Metabolic acidosis: Plan 77 yo male with PMH significant for multiple myeloma status post stem cell transplant, hypertension, BPH admitted to the hospital with ANDREA in the setting of 6 months history of diarrhea which worsen for 2 weeks prior to admission. On admission creatinine was 8.5 with multiple electrolyte abnormality including metabolic acidosis and hypokalemia. Renal function has been slowly improving with improvement in electrolyte. Has Chandler catheter and has been having decent urine output with overall net negative. Renal function recovering slowly, creatinine down to 5.0, electrolyte acceptable. Clinically looks volume depleted. --resume normal saline at 80 mL/hour, encouraged to increase p.o. intake and aim for net even. -- continue the sodium bicarb current dose for now --CHRISTIANA 77553 units given on 04/05/22 --dose medications for eGFR less than 10 Admission and Anticipated Discharge Date Admission Date: March 22, 2022 Kimberly Swenson was seen and evaluated this morning. Overall he has been feeling about the same but continues to have discomfort with constipation, no shortness of breath, nausea or vomiting. Renal function slightly improved creatinine down to 5.0, potassium normal. Decent urine output. BP variable. Review of Systems Review of Systems: Detailed review of system was otherwise unremarkable except mentioned above. Physical Exam Constitutional: WD/WN, vitals as above no acute distress Neck: normal visual inspection Respiratory: Auscultation: lungs clear to auscultation bilaterally Cardiovascular: RRR, no murmur, no edema Skin: + wound (left foot opened blister) Neurologic: no focal motor deficits Psychiatric: Orientation: alert and oriented x 3 Results & Data ([facility]) Vital Signs (Past 12 Hours) Vital Signs Temp Pulse Resp BP Pulse Ox O2 Del Method 04/07/22 09:26 36.8 C 92 H 17 161/79 H 95 Room Air PG Care Time/CCT Total # of Minutes Spent Total Time Spent with Patient: Total time spent is greater than 50% in coordination of care (as documented) at patient's floor/unit and/or counseling patient: Coding Level of Care Code 35828 SUB INP/OBS CARE 3/50MIN Diagnoses Acute kidney injury N17.9 Hypertension I10 Hypokalemia E87.6 Anemia D64.9 Metabolic acidosis E87.20
[2022-04-07] MEDS ORDERED: POLYETHYLENE (MIRALAX) 17 GM PACK PO PRN (18:11)
--- NOTE | 2022-04-07 18:16 | Billing Data ---
Date of Service April 07, 2022 Coding Level of Care Code 43881 SUB INP/OBS CARE
[2022-04-07] MEDS: MIRTAZAPINE TAB 15 MG TAB PO SCH (21:39)
[2022-04-07] MEDS: TAMSULOSIN HCL 0.4 MG CAP PO SCH (21:39)
[2022-04-07] MEDS: MELATONIN 3 MG TAB PO SCH (21:41)
[2022-04-08 06:21] LABS: Hematocrit (blood only) 25.4 % (42.0-52.0); Hemoglobin 8.3 g/dl (14.0-18.0); Mean Corpuscular Hemoglobin 29.7 pg (25.0-34.0); Mean Corpuscular Hgb Conc 32.7 g/dL (32.0-36.0); Mean Platelet Volume 10.9 fL (9.4-12.4); Platelet Count 177 K/uL (130-400); RDW Coefficient of Variation 13.8 % (11.5-14.5); RDW Standard Deviation 45.3 fL (36.4-46.3); Red Blood Count 2.79 M/uL (4.70-6.10); White Blood Count 5.03 K/ul (4.8-10.8)
[2022-04-08 06:40] LABS: Albumin Level 2.9 gm/dl (3.4-5.0); BUN Creatinine Ratio 12.2 (10-20); Calcium 7.7 mg/dl (8.5-10.1); Creatinine Clr Calc Pharmacy 12.1 ml/min; Est GFR (African American) 11.8 ml/min; Est GFR (Non-African American) 10.2 ml/min; Phosphorus 5.3 mg/dl (2.5-4.9); Potassium 4.2 mmol/L (3.5-5.1)
[2022-04-08 06:50] LABS: Prothrombin Time 57.6 Seconds (9.0-12.0)
[2022-04-08] MEDS ORDERED: POLYETHYLENE (MIRALAX) 17 GM PACK PO PRN (07:10)
[2022-04-08] MEDS: CALCITRIOL 0.25 MCG CAPSULE PO SCH (08:48)
[2022-04-08] MEDS: METOPROLOL TARTRATE 25 MG TAB PO SCH ×2 (08:48→20:57)
[2022-04-08] MEDS: CHOLECALCIFEROL 1,000 UNITS 25 MCG TAB PO SCH (08:48)
[2022-04-08] MEDS: SODIUM BICARBONATE 650 MG TAB PO SCH ×2 (08:48→20:57)
[2022-04-08] MEDS: SIMVASTATIN 20 MG TAB PO SCH (08:48)
[2022-04-08] MEDS: SODIUM CHLORIDE 0.9% 1000ML 1,000 ML IV SCH ×2 (11:43→23:20)
--- NOTE | 2022-04-08 11:43 | Nephrology Progress Note ---
Date of Service April 08, 2022 Assessment & Plan (1) Acute kidney injury: (2) Hypertension: (3) Hypokalemia: (4) Anemia: (5) Metabolic acidosis: Plan 77 yo male with PMH significant for multiple myeloma status post stem cell transplant, hypertension, BPH admitted to the hospital with ANDREA in the setting of 6 months history of diarrhea which worsen for 2 weeks prior to admission. On admission creatinine was 8.5 with multiple electrolyte abnormality including metabolic acidosis and hypokalemia. Renal function has been slowly improving with improvement in electrolyte. Has Chandler catheter and has been having decent urine output with overall net negative. No significant improvement in renal function after getting IV fluid for 2 days, creatinine continued to stay stable around 5 for last few days, electrolyte acceptable. Decent urine output, stable volume status and respiratory status. -- Continue to monitor renal function for recovery as it is taking time and recovery has been pretty slow and in fact staying relatively stable over last few days despite getting IV fluid. Electrolyte acceptable. No uremic symptoms. Will plan to discharge home with close outpatient lab monitoring, advised to increase fluid intake and keep well hydrated, limit high potassium food and avoid all NSAIDs. If discharged this afternoon, recommend having lab tomorrow and then Tuesday. Will set up a outpatient follow-up with Dr. Zhang in 1-2 weeks. -- continue the sodium bicarb current dose for now --dose medications for eGFR less than 10 Admission and Anticipated Discharge Date Admission Date: March 22, 2022 Kimberly Swenson was seen and evaluated this morning. He has been feeling better after he had multiple bowel movements since yesterday. Denies shortness of breath, nausea or vomiting. appetite decent. Renal function staying relatively stable with creatinine around 5.0, potassium normal. Decent urine output. BP variable. Review of Systems Review of Systems: Detailed review of system was otherwise unremarkable except mentioned above. Physical Exam Constitutional: WD/WN, vitals as above no acute distress Neck: normal visual inspection Respiratory: Auscultation: lungs clear to auscultation bilaterally Cardiovascular: RRR, no murmur, no edema Skin: + wound (left foot opened blister); no rashes Neurologic: no focal motor deficits Psychiatric: Orientation: alert and oriented x 3 Results & Data ([facility]) Vital Signs (Past 12 Hours) Vital Signs Temp Pulse Resp BP Pulse Ox O2 Del Method 04/08/22 07:50 36.8 C 84 18 156/70 H 96 Room Air PG Care Time/CCT Total # of Minutes Spent Total Time Spent with Patient: Total time spent is greater than 50% in coordination of care (as documented) at patient's floor/unit and/or counseling patient: Coding Level of Care Code 53672 SUB INP/OBS CARE 3/50MIN Diagnoses Acute kidney injury N17.9 Hypertension I10 Hypokalemia E87.6 Anemia D64.9 Metabolic acidosis E87.20
--- NOTE | 2022-04-08 13:17 | Discharge Summary ---
Date of Service April 08, 2022 Admission HPI Per Admitting Provider This is a 77-year-old male with a history of atrial fibrillation, mechanical aortic valve replacement, chronic Warfarin use, dyslipidemia, hypertension, multiple myeloma, history of stem cell transplant who presented to [facility] for evaluation of weakness. Over the past 6 months, patient endorses intermittent episodes of diarrhea. He says they were relatively lower volume and did not contain blood/mucus. He says that over the past two weeks, they have increased in volume and frequency. Several times a day, very watery in appearance. No melena or hematochezia. He denies abdominal pain. He says his appetite has been lousy. He is not drinking much water or eating much each day -- really just toast and coffee, per his . No nausea, vomiting. Denies recent CP/palpitations/SOB/cough. Apparently he was notably hypothermic at home to 91.9F in the day prior to admission. He has not been confused, but has been extremely weak, "spending all day in bed, 24/" over the past week or so. His last colonoscopy was >10 years ago. He endorses a long-term history of loose stools. He denies EtOH, tobacco, or drug use. No herbal remedies or supplements. In the ER, patient was found to have normal vital signs. Admission weight at 73.9 kg from 77.6 kg in July 2021. Admission labs reveal WBC 7.2, hemoglobin 11.2, platelet 118, relative lymphopenia, ESR 47, CRP 3.25, supratherapeutic INR 8.5. Metabolic panel revealing BUN 126/creatinine 8.5, gap acidemia with AG 16 / HCO3 12, potassium 3.6, magnesium 1.6, calcium 7.1. Lipase notably elevated at 3000. TSH 1.7. CXR normal. He was given 2 L of normal saline. Admission Exam Per Admitting Provider General: tired appearing 77-year old male who is alert, oriented, and appears in no acute distress. HEENT: NCAT. - Eyes - Sclera are white, anicteric, and without injection. - Mouth - MMM - Neck - supple, no appreciable JVD Cardiac: Normal rate and regular rhythm; S1 and S2 present with grade 2/6 ESTUARDO at the RUSB radiating toward the apex. Pulmonary: Good respiratory effort with symmetric expansion of the chest. No use of accessory muscles. Lungs were clear to auscultation bilaterally with no crackles or wheezes. Abdominal: Normoactive bowel sounds. Abdomen was soft, nondistended, and non- tender to palpation. Extremities: Upper and lower extremities are warm and well perfused. No peripheral edema in the lower extremities bilaterally Psych: Well-developed, well-nourished, appropriately dressed for occasion. Behavior is cooperative and appropriate. Affect is WNL. Insight is appropriate. Principal Diagnosis acute on chronic diarrhea of unknown cause, profound ANDREA Discharge Exam Constitutional NAD. Vitals WNL. Eyes no conjunctival abnormalities Neck Trachea midline Respiratory CTA bilaterally. No rhonchi, wheezing, or crackles. Non labored breathing. Cardiovascular Mechnical valve noted. RRR. No murmur noted. Trace pitting edema of left lower extremity. Gastrointestinal (Abdomen) +BS, soft. Nontender, nondistended. No masses noted. Psychiatric Alert. Mood and affect congruent. Discharge Data Allergies Allergy/AdvReac Type Severity Reaction Status Date / Time ASHLEY Inhibitors AdvReac Intermediate COUGH Verified 03/22/22 19:14 acetic acid AdvReac Intermediate Swelling Verified 03/30/22 18:17 of Lip/Tongue/Throat Consultations 03/22/22 18:44 ED Decision to Admit Stat 03/23/22 07:16 Consult Nephrology Routine 03/24/22 11:10 Consult Gastroenterology Routine Ordered Studies 03/22/22 18:43 CT Abd and Pelvis [CT abd pelvis wo con] Stat 03/27/22 13:33 US renal/blad retro comp Routine Chest X-Ray 03/22/22 15:29 XR chest 2V PA/lateral CLINICAL HISTORY: Weakness, hypotension COMPARISON STUDY: No previous studies for comparison. FINDINGS: Right sided Frprri-n-Golc is in place. There are median sternotomy. Mild cardiomegaly is noted. There is no evidence for pulmonary edema. No consolidation to suggest pneumonia. No pneumothorax or pleural effusion. IMPRESSION: No acute cardiopulmonary findings. ACT 112: Negative or not required by law. Electronically signed by: Jason Melendez M.D. 03/22/2022 4:48 PM Abdomen/Pelvis CT 03/22/22 18:43 CT SCAN OF THE ABDOMEN AND PELVIS WITHOUT IV CONTRAST CLINICAL HISTORY: Acute renal insufficiency. Diarrhea. COMPARISON STUDY: No priors. TECHNIQUE: CT scan of the abdomen and pelvis is performed from the lung bases to the proximal femora. Images are reviewed in the axial, sagittal, and coronal planes. IV contrast was not administered for this examination due to poor renal function. Note that the examination is suboptimal without oral and IV contrast. A dose lowering technique was utilized adhering to the principles of ALARA. CT DOSE: 383.50 mGy.cm FINDINGS: Lung bases: The heart is enlarged and without pericardial effusion. There is bibasilar scarring/atelectasis. Traction bronchiectasis is seen at both lung bases. Visualized upper septal thickening indicates fluid overload/congestive failure. No airspace consolidation or pleural effusion is identified. There is a small hiatal hernia. Liver: The unenhanced liver is normal in size, contour, and attenuation. There is no intrahepatic biliary ductal dilatation. Gallbladder: There are calcified gallstones without CT evidence of acute cholecystitis. Spleen: Normal in size and attenuation. Pancreas: Question a 1.8 cm low-attenuation lesion within the uncinate process of the pancreas. The unenhanced pancreas is otherwise grossly unremarkable but not well evaluated without IV contrast. Adrenal glands: Unremarkable. Kidneys: The unenhanced kidneys are normal in size and without hydronephrosis. There are no renal calculi identified. Simple and complex/hyperdense renal cyst measure up to 2.9 cm. A 1.2 cm lesion arising from the right lower pole on image #168 distended criteria for a cyst. Abdominal vasculature: The abdominal aorta is normal in course and caliber noting advanced atherosclerotic calcification. Bowel: There is no bowel obstruction. There are fluid-filled loops of small bowel. The appendix is well-visualized and normal. Peritoneum: There is no intraperitoneal free air or abdominal ascites. There is a fat-containing umbilical hernia. Lymphadenopathy: None. Pelvic viscera: The bladder is significantly distended but otherwise normal appearance. The prostate gland is enlarged and heterogeneous. Skeletal structures: The skeletal structures are osteopenic. The skeletal structures are heterogeneously osteopenic. There is mild lumbosacral spondylosis. There is a chronic superior endplate compression deformity of T12. No lytic or blastic lesions are seen. IMPRESSION: 1. There are nonspecific fluid-filled loops of small bowel. No bowel wall thickening or inflammation is seen. Correlate clinically for evidence of a nonspecific enteritis. 2. There is no bowel obstruction. 3. Question a 1.8 cm low-attenuation lesion within the uncinate process of the pancreas. This is not well assessed without IV contrast and may be artifactual. Correlation with a contrast enhanced pancreas protocol CT scan is recommended for further assessment and to exclude underlying pancreatic lesion. 4. There is a 12 mm indeterminant lesion arising from the right kidney. This can also be further assessed on the contrast-enhanced CT scan. 5. Cholelithiasis. 6. Cardiomegaly. 7. Bladder distention. 8. Additional findings as above. ACT 112: Negative or not required by law. Electronically signed by: Cuauhtemoc Fuchs M.D. 03/22/2022 8:55 PM Renal Ultrasound 03/27/22 13:33 RENAL ULTRASOUND HISTORY: Acute kidney injury ANDREA COMPARISON: CT 03/22/2019 FINDINGS: Right kidney: 9.9 No hydronephrosis. Increased echogenicity of the parenchyma. Right renal cysts measure up to 3.2 cm. Normal corticomedullary differentiation and cortical thickness. Left kidney: 10.4 No hydronephrosis. Increased echogenicity of the parenchyma. Left renal cysts measure up to 1.4 cm. Normal corticomedullary differentiation and cortical thickness. Bladder: No bladder wall thickening. The bilateral ureteral jets were identified. Prostamegaly. IMPRESSION: 1. No renal calculi or hydronephrosis. 2. Chronic medical renal disease. 3. Simple renal cysts. 4. Prostamegaly. ACT 112: Negative or not required by law. Electronically signed by: Archie Moore M.D. 03/27/2022 8:18 PM Hospital Course (1) Diarrhea: (2) Acute renal failure: (3) Chronic kidney disease: (4) Hypertension: (5) Elevated prostate specific antigen (PSA): (6) Dyslipidemia: (7) Atrial fibrillation: (8) Anemia: (9) Supratherapeutic INR: (10) Pancreatic lesion: (11) Urinary retention: Plan Pt is a 77 yo male with PMH of multiple myeloma (s/p stem cell transplant), afib, mechanical aortic valve, HTN, dyslipidemia, and BPH who presented to the hospital with a 6 month history of worsening diarrhea. Patient was admitted to the hospital for profound acute kidney injury. Acute on chronic watery diarrhea - ESR 47, CRP 3.25 on arrival; no leukocytosis; lytes largely stable in setting of profound ANDREA - CTAP showed evidence of kidney and pancreatic mass requiring further evaluation w/ contrast scans - GI biofire neg, c diff neg, stool calprotectin neg, stool fat neg, VIP WNL, anti TTG neg, gastrin neg - FOBT pos - 24 Urinary 5-HIAA pending - Diarrhea resolved with cholestyramine 4mg and imodium PRN and he actually became constipated (requiring a stool softeners and a dose of miralax) - recommend outpatient colonoscopy (last one >10 yrs ago) - etiology still largely unknown- suspect possibly due to an unknown environmental factor - encouraged pt to observe home bowel patterns in associated with places he goes, things he eats, etc - pt to use imodium, miralax PRN depending upon bowel movements ANDREA d/t poor oral fluid intake and diarrhea - Cr upon admission 8.50 - no hx of CKD; however, per [facility] notes, 10/2021 labs with Cr 1.7 - ANDREA secondary to intravascular depletion/dehydration with possible ATN component, likely compounded further by ongoing hydrochlorothiazide therapy in the setting of GI losses - Cr slowly improved throughout admission to 5.02 upon discharge - encouraged adequate oral intake (>60 oz fluid daily) - continue vitamin D3, calcitriol, and sodium bicarb supplementation - pt will receive close f/u with lab work 3x per week starting 04/09 Urinary retention - 03/29, bladder scanning showing 800 ml urine- cordero placed and kept until d/c d/t pt preference - no previous history; enlarged prostate on CT without hydronephrosis - began flomax 0.4 mg 04/01, will continue upon d/c - pt to f/u with urology Chronic anticoagulation on warfarin - On admission Mar 22 INR 8.5, suspect largely d/t poor PO intake - Mar 10 INR 2.3, restarted warfarin - Mar 11 INR 1.8, give additional 5 mg dose today for total 7.5 mg - b 12 INR 2.0, give additional 2.5 mg dose today for total 7.5 mg - b 13 INR 3.6 Hold warfarin - b 14 INR 5.1 Hold warfarin - b 15 INR 5.5 Hold warfarin - b 16 INR 6.0 Hold warfarin upon d/c Paroxysmal afib - In sinus rhythm on arrival, rate controlled with metoprolol - INR goal: 2.53.5 due to mechanical valve - warfarin/INR management as above Anemia - Hgb stable, mostly 7-9 this admission - epogen given 03/28, 04/02, 04/05, 04/06 - received 1u pRBC 04/05 Undifferentiated pancreatic and kidney masses - GI recommended pancreatic MRI w/ or w/o EUS - further differentiation necessary by CT w/ contrast; however, this is not possible at this time d/t his kidneys Insomnia - mirtazapine 15 mg at bedtime for sleep, with the goal of a side benefit of improved appetite - continue upon discharge Hyperlipidemia Continue statin Hypertension - Continue to hold hydrochlorothiazide upon d/c in setting of unresolved ANDREA/new baseline CKD - continue metoprolol 50 mg BID Mechanical aortic valve replacement - warfarin management as above MM s/p stem cell transplant in 2013 - follows with [facility]; completed chemotherapy in 2015 - stable and in remission Left dorsal foot, right martinez blister - wrapped - pain managed with Tylenol PO - recommended elevation to reduce swelling Code: Full Diet: renal, increase fluids and limit K upon discharge Prophylaxis: INR supratherapeutic, Warfarin held Dispo: home w/ close f/u Total Time Total Time Spent Total Time Spent (In Minutes): as per attending attestation Discharge Plan Discharge Items Patient Disposition: Home - Self-Care Reason For Visit: PROFUSE DIARRHEA, PRFOUND ANDREA Discharge Diagnosis: ANDREA Activity: Per Instructions section Non-emergency contact: Primary Care Provider Call non-emergency contact if: you have any medication questions and your symptoms worsen Follow-up/Referrals: Brett Zhang MD [Physician] - (f/u 1-2 weeks after discharge) Doug Franklin MD [Primary Care Provider] - Buddy Wilde MD [Physician] - (f/u outpatient colonoscopy) Artis Osullivan MD [Physician] - (f/u after discharge; urinary retention, hx of elevated PSA) Diet: Regular Ambulatory Orders: Basic Metabolic Panel (Routine) Timeframe: 20220421 Location: Determined by Patient Ordered By: Juanita Draper Basic Metabolic Panel (Routine) Timeframe: 20220430 Location: Determined by Patient Ordered By: Juanita Draper Basic Metabolic Panel (Routine) Timeframe: 20220409 Location: Determined by Patient Ordered By: Juanita Draper Basic Metabolic Panel (Routine) Timeframe: 20220412 Location: Determined by Patient Ordered By: Juanita Draper Basic Metabolic Panel (Routine) Timeframe: 20220414 Location: Determined by Patient Ordered By: Juanita Draper Basic Metabolic Panel (Routine) Timeframe: 20220419 Location: Determined by Patient Ordered By: Juanita Draper Basic Metabolic Panel (Routine) Timeframe: 20220416 Location: Determined by Patient Ordered By: Juanita Draper Basic Metabolic Panel (Routine) Timeframe: 20220423 Location: Determined by Patient Ordered By: Juanita Draper Basic Metabolic Panel (Routine) Timeframe: 20220426 Location: Determined by Patient Ordered By: Juanita Draepr Basic Metabolic Panel (Routine) Timeframe: 20220428 Location: Determined by Patient Ordered By: Juanita Draper Addtl Attending Provider Instructions: You were admitted to the hospital for an acute worsening of diarrhea that had been ongoing for at least 6 months. Upon admission to the hospital, it was also found that your kidneys showed signs of significant injury. This was thought to be mostly related to your diarrhea and subsequent dehydration. Your stool was tested for bacteria and infectious causes but these tests were all negative. Other testing for a number of GI related illness (including Crohn's, parasitic infections, and celiac's) were all negative as well. A CT of your abdomen showed a pancreatic mass of undetermined significance. Your stool did test positive for occult blood (meaning blood that you don't notice by looking at your stool). Your diarrhea was eventually controlled with imodium and cholestyramine resin. You should undergo a colonoscopy. In terms of your kidneys, you were treated with judicious IV fluids and encouraged to drink plenty of fluids. Your home hydrochlorothiazide was not given to you in the hospital because that medication can harm your kidneys in the setting of injury like this. A kidney ultrasound was performed and there wer e no signs of blockage or fluids backing up into/around your kidneys. Your kidneys slowly showed improvement. Upon discharge, you should continue to drink at least 60 oz of fluids per day. You were also started on a supplement of sodium bicarbonate due to the imbalance of your electrolytes caused by the kidney injury. You should continue this upon discharge as well. During your hospitalization, you also experienced issues with urinary retention. A cordero catheter was placed for this reason and you were started on a medication to help called flomax. You should continue this medication at home. A discharge summary will be sent to your primary care physician to ensure continuity of care. Please bring this discharge summary with you to your next office appointment so that your provider can review it at that time. Medications: Your medication list has been reviewed and reconciled upon discharge to ensure accuracy and continuity of care. An updated list of all your medications is included with your hospital discharge paperwork. Please review this list closely and make note of any changes to your medications. - You may use imodium over the counter as you need it to help with diarrhea. On the opposite side of things, you may use miralax as needed for constipation. - Flomax (to help prevent urinary retention) has been sent to your pharmacy. You should take this each night. - You should also continue to take over the counter sodium bicarbonate that was started in the hospital. This should be 1300 mg twice per day. - Continue taking an over the counter Vitamin D supplement (2000 IU per day). Calcitriol is another form of Vitamin D that was started due to your kidney function. This was sent to your pharmacy and should be taken daily. - Mirtazapine was added to your medication list to help with appetite. This is once per day at night. - You should stop taking your hydrochlorothiazide due to its effects on your kidneys. - You should continue to monitor your INR for your coumadin. Today, your INR was 6.0. Follow up appointments: - Make a follow up appointment with your PCP within the next week. It is very important that you follow up with them shortly after discharge from the hospital. You should make sure to ask about the abnormality found within your pancreas and the next steps to evaluate this. - You should follow up with your urologist to discuss urinary retention. - You should continue to follow closely with nephrology to monitor your kidney function. You should get labs three times per week (Tuesday, Tuesday, Tuesday), starting tomorrow 04/09/2022. - Keep all of your follow up appointments as already scheduled. If you cannot make an appointment, notify your provider. CONTACT YOUR PRIMARY CARE PROVIDER if you experience any of the following: - Decreased urine stream or a sensation that you are not able to empty your bladder - Recurrence of diarrhea - Difficulty following your treatment plan - Difficulty taking any of your medications CALL 911 OR GO TO THE EMERGENCY DEPARTMENT if you experience any of the following: - Severe, intractable diarrhea - An increase in shortness of breath with activity - Inability to lie flat without feeling short of breath - Sudden, severe abdominal pain or nausea/vomiting - Severe chest pain or chest pain that radiates to your jaw or arm - Sudden, severe shortness of breath or difficulty breathing Pending Studies at Discharge: Yes Stand-Alone Forms: My [facility] [employer], Smoking Cessation Medications and DC Order Prescriptions: New tamsulosin 0.4 mg Capsule 0.4 mg PO HS Qty: 30 1RF calcitriol 0.25 mcg Capsule 0.25 mcg PO DAILY Qty: 30 1RF mirtazapine 15 mg Tablet 15 mg PO HS Qty: 30 1RF sodium bicarbonate 650 mg Tablet 1,300 mg PO BID Qty: 60 0RF loperamide 2 mg Capsule 2 mg PO Q3H PRN (Reason: loose stool) Qty: 30 0RF cholecalciferol (vitamin D3) 25 mcg (1,000 unit) Capsule 2,000 unit PO QAM Qty: 30 0RF Continued simvastatin 20 mg tablet 20 mg PO DAILY Qty: 90 3RF Rx Instructions: PER PT'S FAMILY "NOT SURE WHEN HE LAST TOOK MEDS". metoprolol tartrate 50 mg tablet 50 mg PO BID Qty: 60 5RF Rx Instructions: PER PT'S FAMILY "NOT SURE WHEN HE LAST TOOK MEDS". warfarin 5 mg tablet 5 mg PO .COMPLEX Qty: 90 1RF Rx Instructions: TAKES 5 MG ON SUN, MON, WED, & FRI., THEN TAKES 2.5 MG ON , , & SAT. TAKES QPM. PER PT "TAKES EVERY DAY". Discontinued hydrochlorothiazide 12.5 mg tablet 12.5 mg PO .COMPLEX Qty: 45 5RF Rx Instructions: PER PT'S FAMILY "NOT SURE WHEN HE LAST TOOK MEDS". 12.5 mg PO TAKE 1 TABLET BY MOUTH ALTERNATIN WITH 2 TABS EVERY OTHER DAY; Admission Data Admit Date/Time: 03/22/22 19:01 Attending Provider: Dylon Contreras Admit Provider: Henry Colindres Primary Care Provider: Doug Franklin Other Providers: Henry Colindres ; Kory Macias ; Buddy Wilde ; Dylon Contreras ; Eve Arndt Resident Activity Tracking Resident Involvement: Resident Care Provided Care Provided: Adult [facility]
--- NOTE | 2022-04-08 17:47 | Hospitalist Progress Note ---
Date of Service April 08, 2022 Assessment & Plan (1) Diarrhea: (2) Acute renal failure: (3) Chronic kidney disease: (4) Hypertension: (5) Elevated prostate specific antigen (PSA): (6) Dyslipidemia: (7) Atrial fibrillation: (8) Anemia: (9) Supratherapeutic INR: (10) Pancreatic lesion: (11) Urinary retention: Plan Pt is a 77 yo male with PMH of multiple myeloma (s/p stem cell transplant), afib, mechanical aortic valve, HTN, dyslipidemia, and BPH who presented to the hospital with a 6 month history of worsening diarrhea. Patient was admitted to the hospital for acute kidney injury. Constipation - pt w/ large volume loose stool; most likely overflow - pt's with concerns concerning BM- will continue to observe over next day or two Acute on chronic watery diarrhea- resolved - etiology unknown; plan for outpatient colonoscopy - ESR 47, CRP 3.25 on arrival; no leukocytosis; lytes largely stable in setting of profound ANDREA - CTAP showed evidence of kidney and pancreatic mass requiring further evaluation w/ contrast scans - GI biofire neg, c diff neg, stool calprotectin neg, stool fat neg, VIP WNL, anti TTG neg, gastrin neg - FOBT pos - 24 Urinary 5-HIAA pending - recommend outpatient colonoscopy (last one >10 yrs ago) - Diarrhea improved with cholestyramine 4mg, imodium PRN- which had then turned to constipation as explained above ANDREA d/t poor oral fluid intake and diarrhea - Cr upon admission 8.50 - no hx of CKD; however, per [facility] [place] notes, 10/2021 labs with Cr 1.7 - ANDREA secondary to intravascular depletion/dehydration with possible ATN component, likely compounded further by ongoing hydrochlorothiazide therapy in the setting of GI losses - Cr slowly improving; continuing to encourage adequate oral intake - per nephro, continue sodium bicarb (although pt refusing) - 04/05 Cr 5.23, fluids restarted NS 80 mL/hr - Cr 5.02 today Urinary retention - 03/29, bladder scanning showing 800 ml urine- cordero placed - no previous history; enlarged prostate on CT without hydronephrosis - began flomax 0.4 mg 04/01 - remove cordero prior to discharge Chronic anticoagulation on warfarin - On admission Mar 22 INR 8.5, suspect largely d/t poor PO intake - Feb 10 INR 2.3, restarted warfarin - b 11 INR 1.8, give additional 5 mg dose today for total 7.5 mg - b 12 INR 2.0, give additional 2.5 mg dose today for total 7.5 mg - b 13 INR 3.6 Hold warfarin - Feb 14 INR 5.1 Hold warfarin - Feb 15 INR 5.5 Hold warfarin - b 16 INR 6.0 Hold warfarin Paroxysmal afib - In sinus rhythm on arrival, rate controlled with metoprolol - INR goal: 2.53.5 due to mechanical valve - warfarin/INR management as above Anemia - Hgb stable, mostly 7-9 this admission - epogen given 03/28, 04/02, 04/05, 04/06, - Hgb 6.8, 1u pRBC 04/05 - Hgb stable since transfusion Undifferentiated pancreatic and kidney masses - GI recommended pancreatic MRI w/ or w/o EUS - further differentiation necessary by CT w/ contrast Hyperlipidemia continue statin Hypertension - Hold hydrochlorothiazide in setting of profound ANDREA as above - Pressures have been stable since arrival; reduced metoprolol dose to 25 mg twice daily for now, increase back to home dose of 50 mg twice daily once acute needs have stabilized Mechanical aortic valve replacement - warfarin management as above MM s/p stem cell transplant in 2013 - follows with [facility]; completed chemotherapy in 2016 - stable and in remission Knee pain - ddx - patellar tenosynovitis - DURAN and braelliot; pain improved at rest Insomnia - Mirtazapine 15 mg at bedtime for sleep, with the goal of a side benefit of improved appetite Left dorsal foot, right martinez blister - wrapped - pain managed with Tylenol PO - recommended elevation to reduce swelling Code: Full Diet: renal Prophylaxis: INR supratherapeutic, warfarin held Dispo: med/surg Admission and Anticipated Discharge Date Admission Date: March 22, 2022 Supervising Physician Co-Signing Physician Notes I personally examined the patient and verified all taylor points of history and exam, discussed case, and agree with decision making with Dr Draper Having some loose and watery bowel movements. After discussion with nephrology, we were in agreement that at this point with no persistent or refractory hyperkalemia, no evidence of pulmonary edema, but also no other reasons to start dialysis, it would be reasonable to discharge him home with close outpatient labs/follow-up, red flags to watch for, and close nephrology/PCP office follow- up. Patient himself was okay with this plan. 34-minute discussion with the , whose concerns were about his ability to take enough p.o. fluids, whether or not he would be willing to seek emergency care again if warranted, and whether or not the diarrhea he is having today was a return of the diarrhea he had prior to admission. After extensive discussions, we agreed to watch him a little further in the hospital to ensure which direction things go with the diarrheaalthough I discussed openly that to me this appears quite consistent with overflow diarrhea with a man who had been constipated for a week taking a few doses of MiraLAX. vitals noted nad heent nc at mmm breathing unlabored no accessory muscles good effort skin no rashes no pallor or icterus neuro no focal deficits ARF - due most likely to prolonged prerenal insult from dehydration from diarrhea. no indications for acute HD. continue to follow -plateaued once again, but no acute indications for dialysis at this time. Would be safe for outpatient follow-up, frequent labs, 60 ounces of fluid p.o. daily (discussed with patient extensively and the dire need to do this and tracking, discussed this with his as well, given her concern about his ability to actually do this, and after discussion, we agreed that he really would have to try, given that otherwise he would be committed to requiring IVs for a near indefinite future). diarrhea - w/u still underway, but diarrhea not only resolved - faded to constipation. I really do suspect current diarrhea is overflow diarrhea from fairly profound constipation now treated with MiraLAX, and starting to open up. Discussed with patient and that I would expect some degree of erratic/irregularity of his bowels over the next few days, and while I do understand his 's concerns, I do feel that he would be safe at home as long as he followed up with "red flag" type warnings. At the same time to help allay fears, will continue to follow in the hospital to ensure that the bowels "declare themselves" in 1 direction or another. otherwise as above Subjective Pt is a 77 yo male with PMH of multiple myeloma (s/p stem cell transplant), afib, mechanical aortic valve, HTN, dyslipidemia, and BPH who presented to the hospital with a 6 month history of worsening diarrhea. Patient was admitted to the hospital for acute kidney injury. Pt feeling better this AM after having a few bowel movements (some diarrhea). Otherwise, he feels similar to previous. No new complaints. Denies chest pain and SOB. Review of Systems Review of Systems: All systems reviewed & are unremarkable except as noted in HPI & below Physical Exam Constitutional: NAD. Vitals WNL. Eyes: no conjunctival abnormality Respiratory: CTA bilaterally. No rhonchi, wheezing, or crackles. Non labored breathing. Cardiovascular: RRR. No murmur noted. Trace left LE edema. Gastrointestinal (Abdomen): Nontender, nondistended, +BS. No masses noted. Skin: no rashes, warm and dry Psychiatric: Alert. Mood and affect congruent. Results & Data Results & Data ([facility]) Vital Signs (Past 12 Hours) Vital Signs Temp Pulse Resp BP Pulse Ox O2 Del Method 04/08/22 15:47 36.5 C 84 18 146/72 H 94 Room Air 04/08/22 07:50 36.8 C 84 18 156/70 H 96 Room Air Resident Activity Tracking Resident Involvement: Resident Care Provided Care Provided: Adult Hospital Medicine (2) Acute renal failure Acute renal failure type: unspecified Qualified Code(s): N17.9 - Acute kidney failure, unspecified
--- NOTE | 2022-04-08 20:41 | Billing Data ---
Date of Service April 08, 2022 Coding Level of Care Code 97551 SUB INP/OBS CARE 3MIN
[2022-04-08] MEDS: MIRTAZAPINE TAB 15 MG TAB PO SCH (20:57)
[2022-04-08] MEDS: TAMSULOSIN HCL 0.4 MG CAP PO SCH (20:57)
[2022-04-08] MEDS: MELATONIN 3 MG TAB PO SCH (20:57)
[2022-04-09 07:45] LABS: Hematocrit (blood only) 26.6 % (42.0-52.0); Hemoglobin 8.5 g/dl (14.0-18.0); Mean Corpuscular Hemoglobin 29.4 pg (25.0-34.0); Platelet Count 176 K/uL (130-400); RDW Coefficient of Variation 13.8 % (11.5-14.5); RDW Standard Deviation 46.2 fL (36.4-46.3); Red Blood Count 2.89 M/uL (4.70-6.10); White Blood Count 5.31 K/ul (4.8-10.8)
[2022-04-09 08:18] LABS: Prothrombin Time 54.5 Seconds (9.0-12.0)
[2022-04-09 08:22] LABS: Albumin Level 3.1 gm/dl (3.4-5.0); BUN Creatinine Ratio 12.5 (10-20); Calcium 7.5 mg/dl (8.5-10.1); Creatinine Clr Calc Pharmacy 13.4 ml/min; Est GFR (African American) 13.3 ml/min; Est GFR (Non-African American) 11.5 ml/min; Phosphorus 4.4 mg/dl (2.5-4.9); Potassium 3.9 mmol/L (3.5-5.1)
[2022-04-09 08:30] LABS: INR 5.6 (0.9-1.1)
[2022-04-09] MEDS: METOPROLOL TARTRATE 25 MG TAB PO SCH ×2 (08:45→21:05)
[2022-04-09] MEDS: SODIUM BICARBONATE 650 MG TAB PO SCH ×2 (08:45→21:05)
[2022-04-09] MEDS: CALCITRIOL 0.25 MCG CAPSULE PO SCH (08:45)
[2022-04-09] MEDS: CHOLECALCIFEROL 1,000 UNITS 25 MCG TAB PO SCH (08:45)
[2022-04-09] MEDS: SIMVASTATIN 20 MG TAB PO SCH (08:45)
[2022-04-09] MEDS: ACETAMINOPHEN 325 MG TAB PO PRN (08:49)
--- NOTE | 2022-04-09 09:57 | Hospitalist Progress Note ---
Date of Service April 09, 2022 Assessment & Plan (1) Diarrhea: (2) Acute renal failure: (3) Chronic kidney disease: (4) Hypertension: (5) Elevated prostate specific antigen (PSA): (6) Dyslipidemia: (7) Atrial fibrillation: (8) Anemia: (9) Supratherapeutic INR: (10) Pancreatic lesion: (11) Urinary retention: Plan Pt is a 77 yo male with PMH of multiple myeloma (s/p stem cell transplant), afib, mechanical aortic valve, HTN, dyslipidemia, and BPH who presented to the hospital with a 6 month history of worsening diarrhea. Patient was admitted to the hospital for acute kidney injury. Constipation - pt w/ large volume loose stool; most likely overflow from 1 week w/o a BM - recommend continuation of miralax Acute on chronic watery diarrhea- resolved - etiology unknown; plan for outpatient colonoscopy - ESR 47, CRP 3.25 on arrival; no leukocytosis; lytes largely stable in setting of profound ANDREA - CTAP showed evidence of kidney and pancreatic mass requiring further evaluation w/ contrast scans - GI biofire neg, c diff neg, stool calprotectin neg, stool fat neg, VIP WNL, anti TTG neg, gastrin neg - FOBT pos- no visible BRBPR or dark stools - 24 Urinary 5-HIAA pending - recommend outpatient colonoscopy (last one >10 yrs ago) - Diarrhea improved with cholestyramine 4mg, imodium PRN- which had then turned to constipation as explained above ANDREA d/t poor oral fluid intake and diarrhea - Cr upon admission 8.50 - no hx of CKD; however, per [facility] notes, 10/2021 labs with Cr 1.7 - ANDREA secondary to intravascular depletion/dehydration with possible ATN component, likely compounded further by ongoing hydrochlorothiazide therapy in the setting of GI losses - Cr slowly improving; continuing to encourage adequate oral intake - per nephro, continue sodium bicarb (although pt refusing) - 04/05 Cr 5.23, fluids restarted NS 80 mL/hr - Cr 4.56 today Urinary retention - 03/29, bladder scanning showing 800 ml urine- cordero placed - no previous history; enlarged prostate on CT without hydronephrosis - began flomax 0.4 mg 04/01 - cordero removed 04/08 - required straight cath x1 overnight d/t bladder scan 525 - continue straight cath PRN to allow bladder time to recover - increased flomax to 0.4 mg BID Chronic anticoagulation on warfarin - On admission Mar 22 INR 8.5, suspect largely d/t poor PO intake - Apr 02 INR 2.3, restarted warfarin - Mar 11 INR 1.8, give additional 5 mg dose today for total 7.5 mg - Mar 12 INR 2.0, give additional 2.5 mg dose today for total 7.5 mg - Mar 13 INR 3.6 Hold warfarin - b 14 INR 5.1 Hold warfarin - b 15 INR 5.5 Hold warfarin - b 16 INR 6.0 Hold warfarin - b 17 INR 5.6 Hold warfarin Paroxysmal afib - In sinus rhythm on arrival, rate controlled with metoprolol - INR goal: 2.53.5 due to mechanical valve - warfarin/INR management as above Anemia - Hgb stable, mostly 7-9 this admission - epogen given 03/28, 04/02, 04/05, 04/06, - Hgb 6.8, 1u pRBC 04/05 - Hgb stable since transfusion Undifferentiated pancreatic and kidney masses - GI recommended pancreatic MRI w/ or w/o EUS - further differentiation necessary by CT w/ contrast Hyperlipidemia continue statin Hypertension - Hold hydrochlorothiazide in setting of profound ANDREA as above - Pressures have been stable since arrival; reduced metoprolol dose to 25 mg twice daily for now, increase back to home dose of 50 mg twice daily once acute needs have stabilized Mechanical aortic valve replacement - warfarin management as above MM s/p stem cell transplant in 2013 - follows with [facility]; completed chemotherapy in 2015 - stable and in remission Knee pain - ddx - patellar tenosynovitis - Deandre; pain improved at rest Insomnia - Mirtazapine 15 mg at bedtime for sleep, with the goal of a side benefit of improved appetite Left dorsal foot, right martinez blister - wrapped - pain managed with Tylenol PO - recommended elevation to reduce swelling Code: Full Diet: renal Prophylaxis: INR supratherapeutic, warfarin held Dispo: med/surg Admission and Anticipated Discharge Date Admission Date: March 22, 2022 Supervising Physician Co-Signing Physician Notes I personally examined the patient and verified all taylor points of history and exam, discussed case, and agree with decision making with Dr Draper ~4 loose mostly watery BMs today - moderate volume. starting to void independantly now vitals noted nad heent nc at mmm breathing unlabored no accessory muscles good effort skin no rashes no pallor or icterus neuro no focal deficits ARF - due most likely to prolonged prerenal insult from dehydration from diarrhea. no indications for acute HD. continue to follow -improved some. Urinary retention - doing better. continue straight cath prn but no clear need to re-insert cordero diarrhea - most likely overflow from having been constipated, follow progression though - re-eval if worsens/persists. otherwise as above Subjective Pt is a 77 yo male with PMH of multiple myeloma (s/p stem cell transplant), afib, mechanical aortic valve, HTN, dyslipidemia, and BPH who presented to the hospital with a 6 month history of worsening diarrhea. Patient was admitted to the hospital for acute kidney injury. Pt feeling so-so this morning. He is unhappy with the increase in diarrhea and his inability to urinate. He feels that he is now incontinent of stool as his BM seem to "seep out." He has not been out of bed much. He denies chest pain, SOB, abdominal pain, or leg pains. Review of Systems Review of Systems: All systems reviewed & are unremarkable except as noted in HPI & below Physical Exam Constitutional: NAD. Vitals WNL. Eyes: no conjunctival abnormality Respiratory: CTA bilaterally. No rhonchi, wheezing, or crackles. Non labored breathing. Cardiovascular: Mechanical valve heard. RRR. No murmur noted. 1+ pitting edema in left lower extremity. Gastrointestinal (Abdomen): Soft, distended, nontender, +BS. No masses noted. Skin: no rashes, warm and dry Psychiatric: Alert. Mood and affect congruent. Results & Data Results & Data ([facility]) Vital Signs (Past 12 Hours) Vital Signs Temp Pulse Resp BP Pulse Ox O2 Del Method 04/09/22 07:08 36.5 C 81 18 161/73 H 98 Room Air Resident Activity Tracking Resident Involvement: Resident Care Provided Care Provided: Adult Hospital Medicine (2) Acute renal failure Acute renal failure type: unspecified Qualified Code(s): N17.9 - Acute kidney failure, unspecified
--- NOTE | 2022-04-09 10:21 | Nephrology Progress Note ---
Date of Service April 09, 2022 Assessment & Plan (1) Acute kidney injury: (2) Hypertension: (3) Hypokalemia: (4) Anemia: (5) Metabolic acidosis: Plan 77 yo male with PMH significant for multiple myeloma status post stem cell transplant, hypertension, BPH admitted to the hospital with ANDREA in the setting of 6 months history of diarrhea which worsen for 2 weeks prior to admission. On admission creatinine was 8.5 with multiple electrolyte abnormality including metabolic acidosis and hypokalemia. Renal function has been slowly improving with improvement in electrolyte. Has Chandler catheter and has been having decent urine output with overall net negative. Renal function started to improve, creatinine down to 4.6, electrolyte acceptable. Plan was to discharge him yesterday with close outpatient lab monitoring however his was not comfortable with ongoing diarrhea. --continue IV fluid as p.o. intake seems to be relatively poor specially with some diarrhea, monitor renal function for recovery. --continue the sodium bicarb current dose for now --dose medications for eGFR less than 10 Admission and Anticipated Discharge Date Admission Date: March 22, 2022 Kimberly Swenson was seen and evaluated this morning. He has been feeling poorly and getting more and more frustrated with prolonged hospitalization and feels like is not doing any better than when he came in. had Chandler catheter removed yesterday but was not able to void spontaneously. had 2-3 bowel movement overnight and this morning. Creatinine actually improved and down to 4.6, electrolyte acceptable. Review of Systems Review of Systems: Detailed review of system was otherwise unremarkable except mentioned above. Physical Exam Constitutional: WD/WN, vitals as above + ill appearing; no acute distress Neck: normal visual inspection Respiratory: Auscultation: lungs clear to auscultation bilaterally Cardiovascular: RRR, no murmur, no edema Skin: + wound (left foot opened blister); no rashes Neurologic: no focal motor deficits Psychiatric: Orientation: alert and oriented x 3 Results & Data ([facility]) Vital Signs (Past 12 Hours) Vital Signs Temp Pulse Resp BP Pulse Ox O2 Del Method 04/09/22 07:08 36.5 C 81 18 161/73 H 98 Room Air PG Care Time/CCT Total # of Minutes Spent Total Time Spent with Patient: Total time spent is greater than 50% in coordination of care (as documented) at patient's floor/unit and/or counseling patient: Coding Level of Care Code 23676 SUB INP/OBS CARE 50MIN Diagnoses Acute kidney injury N17.9 Hypertension I10 Hypokalemia E87.6 Anemia D64.9 Metabolic acidosis E87.20
[2022-04-09] MEDS: TAMSULOSIN HCL 0.4 MG CAP PO SCH ×2 (10:37→21:05)
[2022-04-09] MEDS: SODIUM CHLORIDE 0.9% 1000ML 1,000 ML IV SCH (14:27)
--- NOTE | 2022-04-09 16:48 | Billing Data ---
Date of Service April 09, 2022 Coding Level of Care Code 87413 SUB INP/OBS CARE MIN
[2022-04-09] MEDS ORDERED: ANUSOL SUPP 1 EA PR PRN (17:43)
[2022-04-09] MEDS: MIRTAZAPINE TAB 15 MG TAB PO SCH (21:05)
[2022-04-09] MEDS: MELATONIN 3 MG TAB PO SCH (21:05)
[2022-04-10] MEDS: SODIUM CHLORIDE 0.9% 1000ML 1,000 ML IV SCH (03:00)
[2022-04-10] MEDS ORDERED: Nursing to Pharmacy Communication SCH (03:15)
[2022-04-10 06:33] LABS: Hematocrit (blood only) 24.8 % (42.0-52.0); Hemoglobin 8.2 g/dl (14.0-18.0); Mean Corpuscular Hemoglobin 29.8 pg (25.0-34.0); Mean Corpuscular Hgb Conc 33.1 g/dL (32.0-36.0); Mean Corpuscular Volume 90.2 fL (80.0-100.0); Mean Platelet Volume 11.2 fL (9.4-12.4); Platelet Count 192 K/uL (130-400); RDW Standard Deviation 45.1 fL (36.4-46.3); Red Blood Count 2.75 M/uL (4.70-6.10); White Blood Count 5.31 K/ul (4.8-10.8)
[2022-04-10 06:57] LABS: Albumin Level 3.1 gm/dl (3.4-5.0); BUN Creatinine Ratio 11.6 (10-20); Calcium 7.6 mg/dl (8.5-10.1); Creatinine Clr Calc Pharmacy 13.6 ml/min; Est GFR (African American) 13.5 ml/min; Est GFR (Non-African American) 11.7 ml/min; Phosphorus 4.3 mg/dl (2.5-4.9); Potassium 3.4 mmol/L (3.5-5.1)
[2022-04-10 07:17] LABS: INR 5.5 (0.9-1.1); Prothrombin Time 53.4 Seconds (9.0-12.0)
[2022-04-10] MEDS: CALCITRIOL 0.25 MCG CAPSULE PO SCH (09:18)
[2022-04-10] MEDS: TAMSULOSIN HCL 0.4 MG CAP PO SCH ×2 (09:18→20:23)
[2022-04-10] MEDS: CHOLECALCIFEROL 1,000 UNITS 25 MCG TAB PO SCH (09:18)
[2022-04-10] MEDS: METOPROLOL TARTRATE 25 MG TAB PO SCH ×2 (09:19→20:23)
[2022-04-10] MEDS: SODIUM BICARBONATE 650 MG TAB PO SCH ×2 (09:19→20:23)
[2022-04-10] MEDS: SIMVASTATIN 20 MG TAB PO SCH (09:19)
--- NOTE | 2022-04-10 11:22 | Nephrology Progress Note ---
Date of Service April 10, 2022 Assessment & Plan (1) Acute kidney injury: (2) Hypertension: Plan: Stop IVF (3) Hypokalemia: (4) Anemia: Plan: s/p 1u PRBC 04/05 for Hgb 6.8. Hgb stable since. Tsat 33 on Mar 24. (5) Metabolic acidosis: Plan: Attributed to GI losses. UAG checked earlier during admission suggestive of GI loss associated NAGMA. Plan Mr. Messi Londono is a 77 year-old male with a history of multiple myeloma status post stem cell transplant, hypertension, and BPH. He was admitted to the hospital with ANDREA in the setting of chronic diarrhea. On admission, serum creatinine was 8.5 with multiple electrolyte abnormality including metabolic acidosis and hypokalemia. Evaluation also notable for stigma of advanced CKD, including hyperphosphatemia, sPTH, and anemia. Renal function has been slowly improving with improvement in electrolyte. He did have some urinary retention after removal of Chandler catheter which appears to have improved. Thankfully, Messi has not required dialysis. Volume status appears acceptable today. Messi describes adequate PO intake. IVF w ill be stopped. Given stability in kidney function, I do think discharge with close outpatient follow up would be reasonable from a nephrology perspective. Continue oral NaHCO3, an oral KCl supplement, and calcitriol. Continue oral NaCl 1300 mg BID. Oral KCl supplement provided today. Continue calcitriol as Rx for sPTH. Tolerating tamsulosin 0.4 mg BID well. Improvement in LUTS reported. Straight cath PRN. Check PSA with next labs. Medications are appropriately dosed for kidney function. Admission and Anticipated Discharge Date Admission Date: March 22, 2022 Subjective No acute events overnight. Messi states that diarrhea has been moderate. He would really like to go home. He states that he is eating well. Appetite is good. Diarrhea is not particularly bothersome. He feels that he is voiding without difficulty at this point. He denies any fluid retention or swelling. Review of Systems Review of Systems: All systems reviewed & are unremarkable except as noted in HPI & below Gastrointestinal: + diarrhea/loose stools Physical Exam Constitutional: well developed and + thin; no acute distress Eyes: + anicteric sclerae; no corneal abnormality ENMT: Mouth: + dry oral mucous membranes; no oral mucosal abnormality Neck: normal visual inspection and trachea midline Respiratory: normal respiratory effort Auscultation: lungs clear to auscultation bilaterally Cardiovascular: Rate/Rhythm: regular rate Heart Sounds: normal S1, normal S2 and + murmur Extremities: no edema Musculoskeletal: Extremities: no cyanosis and no clubbing Skin: + turgor decreased; no jaundice Neurologic: Motor/Sensory: no tremor and no asterixis Psychiatric: Orientation: alert and oriented x 3 Results & Data ([facility]) Vital Signs (Past 12 Hours) Vital Signs Temp Pulse Resp BP Pulse Ox O2 Del Method 04/10/22 08:11 37.1 C 81 16 164/80 H 98 Room Air Laboratory Results Laboratory Results - last 24 hr 04/10/22 04/10/22 04/10/22 05:44 05:44 05:44 WBC 5.31 RBC 2.75 L Hgb 8.2 L Hct 24.8 L MCV 90.2 MCH 29.8 MCHC 33.1 RDW Std Deviation 45.1 RDW Coeff of Berto 14.0 Plt Count 192 MPV 11.2 PT 53.4 H INR 5.5 H Sodium 141 Potassium 3.4 L Chloride 112 H Carbon Dioxide 20 L Anion Gap 9 BUN 52 H Creatinine 4.49 H Est Cr Clr Drug Dosing 13.6 Est GFR ( Amer) 13.5 Est GFR (Non-Af Amer) 11.7 BUN/Creatinine Ratio 11.6 Glucose 116 H Calcium 7.6 L Phosphorus 4.3 Albumin 3.1 L PG Care Time/CCT Total # of Minutes Spent Total Time Spent with Patient: Total time spent is greater than 50% in coordination of care (as documented) at patient's floor/unit and/or counseling patient: Coding Level of Care Code 76510 SUB INP/OBS CARE 3/50MIN Diagnoses Acute kidney injury N17.9 Hypertension I10 Hypokalemia E87.6 Anemia D64.9 Metabolic acidosis E87.20
[2022-04-10] MEDS ORDERED: POTASSIUM CHLORIDE CRTAB 20 MEQ TABCR PO STA (11:31)
--- NOTE | 2022-04-10 16:01 | Discharge Summary ---
Date of Service April 10, 2022 Admission HPI Per Admitting Provider This is a 77-year-old male with a history of atrial fibrillation, mechanical aortic valve replacement, chronic Warfarin use, dyslipidemia, hypertension, multiple myeloma, history of stem cell transplant who presented to [facility] for evaluation of weakness. Over the past 6 months, patient endorses intermittent episodes of diarrhea. He says they were relatively lower volume and did not contain blood/mucus. He says that over the past two weeks, they have increased in volume and frequency. Several times a day, very watery in appearance. No melena or hematochezia. He denies abdominal pain. He says his appetite has been lousy. He is not drinking much water or eating much each day -- really just toast and coffee, per his . No nausea, vomiting. Denies recent CP/palpitations/SOB/cough. Apparently he was notably hypothermic at home to 91.9F in the day prior to admission. He has not been confused, but has been extremely weak, "spending all day in bed, 24/" over the past week or so. His last colonoscopy was >10 years ago. He endorses a long-term history of loose stools. He denies EtOH, tobacco, or drug use. No herbal remedies or supplements. In the ER, patient was found to have normal vital signs. Admission weight at 73.9 kg from 77.6 kg in July 2021. Admission labs reveal WBC 7.2, hemoglobin 11.2, platelet 118, relative lymphopenia, ESR 47, CRP 3.25, supratherapeutic INR 8.5. Metabolic panel revealing BUN 126/creatinine 8.5, gap acidemia with AG 16 / HCO3 12, potassium 3.6, magnesium 1.6, calcium 7.1. Lipase notably elevated at 3000. TSH 1.7. CXR normal. He was given 2 L of normal saline. Admission Exam Per Admitting Provider General: tired appearing 77-year old male who is alert, oriented, and appears in no acute distress. HEENT: NCAT. - Eyes - Sclera are white, anicteric, and without injection. - Mouth - MMM - Neck - supple, no appreciable JVD Cardiac: Normal rate and regular rhythm; S1 and S2 present with grade 2/6 ESTUARDO at the RUSB radiating toward the apex. Pulmonary: Good respiratory effort with symmetric expansion of the chest. No use of accessory muscles. Lungs were clear to auscultation bilaterally with no crackles or wheezes. Abdominal: Normoactive bowel sounds. Abdomen was soft, nondistended, and non- tender to palpation. Extremities: Upper and lower extremities are warm and well perfused. No peripheral edema in the lower extremities bilaterally Psych: Well-developed, well-nourished, appropriately dressed for occasion. Behavior is cooperative and appropriate. Affect is WNL. Insight is appropriate. Principal Diagnosis ANDREA, Profuse Diarrhea Discharge Exam Constitutional WD/WN, vitals as above Eyes Anicteric sclera Neck trachea midline, no thyromegaly Respiratory normal respiratory effort, lungs clear to auscultation Cardiovascular Regular rate and rhythm, mechanical valve. No murmur or gallop. +1 LE edema Gastrointestinal (Abdomen) Abdomen soft with slight distension, no guarding. +Bowel sounds. No masses palpated. Musculoskeletal Able to move all limbs independently. Skin no rashes, warm and dry Psychiatric A+Ox3, euthymic affect Discharge Data Allergies Allergy/AdvReac Type Severity Reaction Status Date / Time ASHLEY Inhibitors AdvReac Intermediate COUGH Verified 03/22/22 19:14 acetic acid AdvReac Intermediate Swelling Verified 03/30/22 18:17 of Lip/Tongue/Throat Consultations 03/22/22 18:44 ED Decision to Admit Stat 03/23/22 07:16 Consult Nephrology Routine 03/24/22 11:10 Consult Gastroenterology Routine Ordered Studies 03/22/22 18:43 CT Abd and Pelvis [CT abd pelvis wo con] Stat 03/27/22 13:33 US renal/blad retro comp Routine Hospital Course (1) Diarrhea: (2) Acute renal failure: (3) Chronic kidney disease: (4) Hypertension: (5) Elevated prostate specific antigen (PSA): (6) Dyslipidemia: (7) Atrial fibrillation: (8) Anemia: (9) Supratherapeutic INR: (10) Pancreatic lesion: (11) Urinary retention: Harley Swenson is a 77 yo male with PMH of multiple myeloma (s/p stem cell transplant), afib, mechanical aortic valve, HTN, dyslipidemia, and BPH who presented to the hospital with a 6 month history of worsening diarrhea. Patient was admitted to the hospital for acute kidney injury with a Cr: 8.50. A CTAP showed evidence of kidney and pancreatic mass requiring further evaluation w/ contrast scans, however unable to complete during admission due to significant elevation in Cr. Extensive stool work up completed including GI biofire neg, c diff neg, stool calprotectin neg, stool fat neg, VIP WNL, anti TTG neg, gastrin neg, FOBT positive but no BRBPR or dark stools. His diarrhea improved with cholestyramine and imodium, however did switch to constipation for several days before returning to diarrhea (although significantly less than on admission). Suspect that he has chronic constipation leading to overflow diarrhea, recommend outpatient colonoscopy. For the possible pancreatic mass, GI recommends outpatient follow up with pancreatic MRI +/-EUS. Nephrology was consulted. His ANDREA is likely secondary to intravascular depletion/dehydration with possible ATN component, likely compounded further by ongoing hydrochlorothiazide therapy in the setting of GI losses Cr slowly improved, continuing to encourage adequate oral intake. Cr 4.49 on day of discharge. He did have issues with urinary retention requiring cordero placement and started Flomax, was able to remove cordero and discharged home on Flomax nightly. His required epogen and 1 unit of PRBCs on 04/05 due to anemia (hgb 6.8), hemoglobin has been stable in low 8s since. Patient was discharged with instructions to follow up in office with nephrology in 1-2 weeks as well as avoid NSAIDs, and complete labs three times per week (Tuesday, Tuesday, Tuesday), starting Tuesday04/12/2022 which have already been ordered. Total Time Total Time Spent Total Time Spent (In Minutes): <30 Discharge Plan Discharge Items Patient Disposition: Home - Self-Care Reason For Visit: PROFUSE DIARRHEA, PRFOUND ANDREA Discharge Diagnosis: ANDREA (in the setting of CKD) Activity: Per Instructions section Non-emergency contact: Primary Care Provider Call non-emergency contact if: you have any medication questions and your symptoms worsen Follow-up/Referrals: Brett Zhang MD [Physician] - (f/u 1-2 weeks after discharge) Doug Franklin MD [Primary Care Provider] - 04/22/22 10:30 am (APPOINTMENT WITH Virginia WOODY PA-C) Buddy Wilde MD [Physician] - (f/u outpatient colonoscopy) Artis Osullivan MD [Physician] - (f/u after discharge; urinary retention, hx of elevated PSA) Diet: Low Potassium (2gm) Ambulatory Orders: Basic Metabolic Panel (Routine) Timeframe: 20220421 Location: Determined by Patient Ordered By: Juanita Draper Basic Metabolic Panel (Routine) Timeframe: 20220430 Location: Determined by Patient Ordered By: Juanita Draper Basic Metabolic Panel (Routine) Timeframe: 20220412 Location: Determined by Patient Ordered By: Juanita Draper Basic Metabolic Panel (Routine) Timeframe: 20220414 Location: Determined by Patient Ordered By: Juanita Draper Basic Metabolic Panel (Routine) Timeframe: 20220419 Location: Determined by Patient Ordered By: Juanita Draper Basic Metabolic Panel (Routine) Timeframe: 20220416 Location: Determined by Patient Ordered By: Juanita Draper Basic Metabolic Panel (Routine) Timeframe: 20220423 Location: Determined by Patient Ordered By: Juanita Draper Basic Metabolic Panel (Routine) Timeframe: 20220426 Location: Determined by Patient Ordered By: Juanita Draper Basic Metabolic Panel (Routine) Timeframe: 20220428 Location: Determined by Patient Ordered By: Juanita Draper Addtl Attending Provider Instructions: You were admitted to the hospital for an acute worsening of diarrhea that had been ongoing for at least 6 months. Upon admission to the hospital, it was also found that your kidneys showed signs of significant injury. This was thought to be mostly related to your diarrhea and subsequent dehydration. Your stool was tested for bacteria and infectious causes but these tests were all negative. Other testing for a number of GI related illness (including Crohn's, parasitic infections, and celiac's) were all negative as well. A CT of your abdomen showed a pancreatic mass of undetermined significance. Your stool did test positive for occult blood (meaning blood that you don't notice by looking at your stool). Your diarrhea was eventually controlled with Imodium and cholestyramine resin. You should undergo a colonoscopy. In terms of your kidneys, you were treated with judicious IV fluids and encouraged to drink plenty of fluids. Your home hydrochlorothiazide was not given to you in the hospital because that medication can harm your kidneys in the setting of injury like this. A kidney ultrasound was performed and there were no signs of blockage or fluids backing up into/around your kidneys. Your kidneys slowly showed improvement. Upon discharge, you should continue to drink at least 60 oz of fluids per day. You were also started on a supplement of sodium bicarbonate due to the imbalance of your electrolytes caused by the kidney injury. You should continue this upon discharge as well. During your hospitalization, you also experienced issues with urinary retention. A cordero catheter was placed for this reason and you were started on a medication to help called flomax. You should continue this medication at home. A discharge summary will be sent to your primary care physician to ensure continuity of care. Please bring this discharge summary with you to your next office appointment so that your provider can review it at that time. Medications: Your medication list has been reviewed and reconciled upon discharge to ensure accuracy and continuity of care. An updated list of all your medications is in cluded with your hospital discharge paperwork. Please review this list closely and make note of any changes to your medications. - You may use imodium over the counter as you need it to help with diarrhea. On the opposite side of things, you may use miralax as needed for constipation. - Flomax (to help prevent urinary retention) has been sent to your pharmacy. You should take this each night. - You should also continue to take over the counter sodium bicarbonate that was started in the hospital. This should be 1300 mg twice per day. - Continue taking an over the counter Vitamin D supplement (2000 IU per day). Calcitriol is another form of Vitamin D that was started due to your kidney function. This was sent to your pharmacy and should be taken daily. - Mirtazapine was added to your medication list to help with sleep and your appetite. This is once per day at night. - You should stop taking your hydrochlorothiazide due to its effects on your kidneys. - You should continue to monitor your INR for your coumadin. Today, your INR was 5.5 so the coumadin is still being held. Your goal INR is between 2.5-3.5, since it is still above that goal, we are holding the coumadin. Please continue to check the INR daily and discuss this further with your PCP. Although I have the coumadin as "discontinued" on your medication list, this is only because you should not take it on days like today when your INR is above 3.5. Follow up appointments: - Make a follow up appointment with your PCP within the next week. It is very important that you follow up with them shortly after discharge from the hospital. You should make sure to ask about the abnormality found within your pancreas and the next steps to evaluate this. - You should follow up with your urologist to discuss urinary retention. - You should continue to follow closely with nephrology to monitor your kidney function. You should get labs three times per week (Tuesday, Tuesday, Tuesday), starting Tuesday04/12/2022. - Keep all of your follow up appointments as already scheduled. If you cannot make an appointment, notify your provider. CONTACT YOUR PRIMARY CARE PROVIDER if you experience any of the following: - Decreased urine stream or a sensation that you are not able to empty your bladder - Recurrence of diarrhea - Difficulty following your treatment plan - Difficulty taking any of your medications CALL 911 OR GO TO THE EMERGENCY DEPARTMENT if you experience any of the following: - Severe, intractable diarrhea - An increase in shortness of breath with activity - Inability to lie flat without feeling short of breath - Sudden, severe abdominal pain or nausea/vomiting - Severe chest pain or chest pain that radiates to your jaw or arm - Sudden, severe shortness of breath or difficulty breathing Pending Studies at Discharge: Yes Stand-Alone Forms: My [facility] [employer], Smoking Cessation Medications and DC Order Prescriptions: New tamsulosin 0.4 mg Capsule 0.4 mg PO HS Qty: 30 1RF calcitriol 0.25 mcg Capsule 0.25 mcg PO DAILY Qty: 30 1RF loperamide 2 mg Capsule 2 mg PO Q3H PRN (Reason: loose stool) Qty: 30 0RF mirtazapine 15 mg Tablet 15 mg PO HS Qty: 30 1RF cholecalciferol (vitamin D3) 25 mcg (1,000 unit) Capsule 2,000 unit PO QAM Qty: 30 0RF sodium bicarbonate 650 mg Tablet 1,300 mg PO BID Qty: 60 0RF Continued simvastatin 20 mg tablet 20 mg PO DAILY Qty: 90 3RF Rx Instructions: PER PT'S FAMILY "NOT SURE WHEN HE LAST TOOK MEDS". metoprolol tartrate 50 mg tablet 50 mg PO BID Qty: 60 5RF Rx Instructions: PER PT'S FAMILY "NOT SURE WHEN HE LAST TOOK MEDS". Discontinued hydrochlorothiazide 12.5 mg tablet 12.5 mg PO .COMPLEX Qty: 45 5RF Rx Instructions: PER PT'S FAMILY "NOT SURE WHEN HE LAST TOOK MEDS". 12.5 mg PO TAKE 1 TABLET BY MOUTH ALTERNATIN WITH 2 TABS EVERY OTHER DAY; warfarin 5 mg tablet 5 mg PO .COMPLEX Qty: 90 1RF Rx Instructions: TAKES 5 MG ON SUN, MON, WED, & FRI., THEN TAKES 2.5 MG ON TU, THURS, & SAT. TAKES QPM. PER PT "TAKES EVERY DAY". Discharge Orders: Discharge Order (Routine); Ordered 04/10/22 Ordered By: Chioma Yuan Admission Data Admit Date/Time: 03/22/22 19:01 Attending Provider: Dylon Contreras Admit Provider: Henry Colindres Primary Care Provider: Doug Franklin Other Providers: Henry Colindres ; Kory Macias ; Buddy Wilde ; Dylon Contreras ; Eve Arndt Other Interventions: Discharge Summary Assessment (RN) Last Done: 04/10/22 16:27 Supervising Physician Co-Signing Physician Notes I personally examined the patient and verified all taylor points of history and exam, discussed case, and agree with decision making with Dr Yuan Less diarrhea, notes that it is far less volume than prior to admission, and seems different overall. He feels pretty comfortable it is likely overflow and would very much like to go home. vitals noted nad heent nc at mmm breathing unlabored no accessory muscles good effort skin no rashes no pallor or icterus neuro no focal deficits ARF - due most likely to prolonged prerenal insult from dehydration from diarrhea. no indications for acute HD. Close outpatient follow-uplabs Tuesday, continue sodium bicarbonate. Urinary retention - doing better. continue straight cath prn but no clear need to re-insert cordero diarrhea - most likely overflow from having been constipated, follow progression though - re-eval if worsens/persists. Right now seems to be playing out consistent with overflow. Neck step in terms of his chronic diarrhea (given extensive negative work-up) is colonoscopy which GI planned on doing as an outpatient Elevated INRhold Coumadin for now, next INR Tuesday, follow-up based on Coumadin clinic recommendations otherwise as above, stable for home. Will need close PCP, GI, nephrology follow-up, labs Tuesday/Tuesday/Tuesday, has outlined "red flags" as far as any shortness of breath needing to be evaluated right away, and that he might show a need for urgent dialysis based on his lab work. Discussed the need to stay well-hydratedoutlined a goal of at least 60 ounces of p.o. fluid intake daily. Discussed the possible need for more urgent follow-up if the diarrhea worsens. He expresses understanding (we have had this discussion now on a few separate days and he is expressed good understanding each timestable/safe for home under those parameters.
--- NOTE | 2022-04-10 18:34 | Hospitalist Progress Note ---
Date of Service April 10, 2022 Assessment & Plan (1) Diarrhea: (2) Acute renal failure: (3) Chronic kidney disease: (4) Hypertension: (5) Elevated prostate specific antigen (PSA): (6) Dyslipidemia: (7) Atrial fibrillation: (8) Anemia: (9) Supratherapeutic INR: (10) Pancreatic lesion: (11) Urinary retention: Plan Pt is a 77 yo male with PMH of multiple myeloma (s/p stem cell transplant), afib, mechanical aortic valve, HTN, dyslipidemia, and BPH who presented to the hospital with a 6 month history of worsening diarrhea. Patient was admitted to the hospital for acute kidney injury. +Anticipate discharge tomorrow, patient was set to be discharged today but unable to leave as he did not have a walker at home. Constipation - pt w/ large volume loose stool; most likely overflow from 1 week w/o a BM - recommend continuation of miralax Acute on chronic watery diarrhea- resolved - etiology unknown; plan for outpatient colonoscopy - ESR 47, CRP 3.25 on arrival; no leukocytosis; lytes largely stable in setting of profound ANDREA - CTAP showed evidence of kidney and pancreatic mass requiring further evaluation w/ contrast scans - GI biofire neg, c diff neg, stool calprotectin neg, stool fat neg, VIP WNL, anti TTG neg, gastrin neg - FOBT pos- no visible BRBPR or dark stools - 24 Urinary 5-HIAA pending - recommend outpatient colonoscopy (last one >10 yrs ago) - Diarrhea improved with cholestyramine 4mg, imodium PRN- which had then turned to constipation as explained above ANDREA d/t poor oral fluid intake and diarrhea - Cr upon admission 8.50 - no hx of CKD; however, [place] [facility] [place] labs with Cr 1.7 - ANDREA secondary to intravascular depletion/dehydration with possible ATN component, likely compounded further by ongoing hydrochlorothiazide therapy in the setting of GI losses - Cr slowly improving; continuing to encourage adequate oral intake - per nephro, continue sodium bicarb (although pt refusing) - 04/05 Cr 5.23, fluids restarted NS 80 mL/hr - Cr 4.49 today Urinary retention - 03/29, bladder scanning showing 800 ml urine- cordero placed - no previous history; enlarged prostate on CT without hydronephrosis - began flomax 0.4 mg 04/01 - cordero removed 04/08 - required straight cath x1 on 04/08 d/t bladder scan 525 - continue straight cath PRN to allow bladder time to recover, has been urinating without issue today - increased flomax to 0.4 mg BID Chronic anticoagulation on warfarin - On admission Mar 22 INR 8.5, suspect largely d/t poor PO intake - Apr 02 INR 2.3, restarted warfarin - Mar 11 INR 1.8, give additional 5 mg dose today for total 7.5 mg - b 12 INR 2.0, give additional 2.5 mg dose today for total 7.5 mg - b 13 INR 3.6 Hold warfarin - b 14 INR 5.1 Hold warfarin - Feb 15 INR 5.5 Hold warfarin - b 16 INR 6.0 Hold warfarin - b 17 INR 5.6 Hold warfarin - b 18 INR 5.5 Hold warfarin Paroxysmal afib - In sinus rhythm on arrival, rate controlled with metoprolol - INR goal: 2.53.5 due to mechanical valve - warfarin/INR management as above Anemia - Hgb stable, mostly 7-9 this admission - epogen given 03/28, 04/02, 04/05, 04/06, - Hgb 6.8, 1u pRBC 04/05 - Hgb stable since transfusion Undifferentiated pancreatic and kidney masses - GI recommended pancreatic MRI w/ or w/o EUS - further differentiation necessary by CT w/ contrast Hyperlipidemia continue statin Hypertension - Hold hydrochlorothiazide in setting of profound ANDREA as above - Pressures have been stable since arrival; reduced metoprolol dose to 25 mg twice daily for now, increase back to home dose of 50 mg twice daily once acute needs have stabilized Mechanical aortic valve replacement - warfarin management as above MM s/p stem cell transplant in 2013 - follows with [facility]; completed chemotherapy in 2016 - stable and in remission Knee pain - ddx - patellar tenosynovitis - DURAN and braelliot; pain improved at rest Insomnia - Mirtazapine 15 mg at bedtime for sleep, with the goal of a side benefit of improved appetite Left dorsal foot, right martinez blister - wrapped - pain managed with Tylenol PO - recommended elevation to reduce swelling Code: Full Diet: renal Prophylaxis: INR supratherapeutic, warfarin held Dispo: med/surg Admission and Anticipated Discharge Date Admission Date: March 22, 2022 Supervising Physician Co-Signing Physician Notes I personally examined the patient and verified all taylor points of history and exam, discussed case, and agree with decision making with Dr Yuan Less diarrhea, notes that it is far less volume than prior to admission, and seems different overall. He feels pretty comfortable it is likely overflow and would very much like to go home. vitals noted nad heent nc at mmm breathing unlabored no accessory muscles good effort skin no rashes no pallor or icterus neuro no focal deficits ARF - due most likely to prolonged prerenal insult from dehydration from diarrhea. no indications for acute HD. Close outpatient follow-uplabs Tuesday, continue sodium bicarbonate. Urinary retention - doing better. continue straight cath prn but no clear need to re-insert cordero diarrhea - most likely overflow from having been constipated, follow progression though - re-eval if worsens/persists. Right now seems to be playing out consistent with overflow. Neck step in terms of his chronic diarrhea (given extensive negative work-up) is colonoscopy which GI planned on doing as an outpatient Elevated INRhold Coumadin for now, next INR Tuesday, follow-up based on Coumadin clinic recommendations otherwise as above, stable for home. Will need close PCP, GI, nephrology follow-up, labs Tuesday/Tuesday/Tuesday, has outlined "red flags" as far as any shortness of breath needing to be evaluated right away, and that he might show a need for urgent dialysis based on his lab work. Discussed the need to stay well-hydratedoutlined a goal of at least 60 ounces of p.o. fluid intake daily. Discussed the possible need for more urgent follow-up if the diarrhea worsens. He expresses understanding (we have had this discussion now on a few separate days and he is expressed good understanding each timestable/safe for home under those parameters. discharge held up due to not being able to get a walker Subjective Patient seen and examined at bedside. Messi was seated in recliner at time of encounter, he states he still has some loose stool today but it is still overall improved from time of admission. He notes that he is ready to go home, he feels that staying longer in the hospital will worsen his mental health and he will heal better once he is home. Denies shortness of breath, headache, nausea/vomiting, fever, body aches. Note: patient was set to be discharged when his notified the team that they do not have a walker at home. Care management had previously been told that there was a walker at home so no arrangements had been made for delivery of a walker. Discharge was cancelled and will coordinate with CM tomorrow AM to acquire a walker for the patient. Review of Systems Review of Systems: As per above Physical Exam Constitutional: WD/WN, vitals as above Eyes: No conjunctival abnormalities Neck: trachea midline, no thyromegaly Respiratory: normal respiratory effort, lungs clear to auscultation Cardiovascular: Regular rate and rhythm, mechanical valve. No murmur or gallop. +1 edema of bilateral LE Gastrointestinal (Abdomen): Abdomen soft, minimal distention. +Bowel sounds. Musculoskeletal: Able to move all limbs independently Skin: no rashes, warm and dry Psychiatric: A+Ox3, euthymic affect Results & Data Results & Data ([facility]) Vital Signs (Past 12 Hours) Vital Signs Temp Pulse Pulse Pulse Pulse Resp BP 04/10/22 16:27 36.7 C 91 H 81 80 92 H 16 161/78 H 04/10/22 15:14 36.7 C 91 H 16 04/10/22 08:11 37.1 C 81 16 BP Pulse Ox O2 Del Method 04/10/22 16:27 155/73 H 98 04/10/22 15:14 155/73 H 98 Room Air 04/10/22 08:11 164/80 H 98 Room Air Resident Activity Tracking Resident Involvement: Resident Care Provided Care Provided: Adult Hospital Medicine (2) Acute renal failure Acute renal failure type: unspecified Qualified Code(s): N17.9 - Acute kidney failure, unspecified
[2022-04-10] MEDS: ACETAMINOPHEN 325 MG TAB PO PRN (19:23)
[2022-04-10] MEDS: MELATONIN 3 MG TAB PO SCH (20:23)
[2022-04-10] MEDS: MIRTAZAPINE TAB 15 MG TAB PO SCH (20:23)
[2022-04-11 06:35] LABS: Hematocrit (blood only) 24.2 % (42.0-52.0); Mean Corpuscular Hemoglobin 30.1 pg (25.0-34.0); Mean Corpuscular Hgb Conc 33.1 g/dL (32.0-36.0); Mean Platelet Volume 11.1 fL (9.4-12.4); Platelet Count 187 K/uL (130-400); RDW Coefficient of Variation 14.2 % (11.5-14.5); RDW Standard Deviation 46.6 fL (36.4-46.3); Red Blood Count 2.66 M/uL (4.70-6.10); White Blood Count 4.71 K/ul (4.8-10.8)
[2022-04-11 06:55] LABS: BUN Creatinine Ratio 10.6 (10-20); Calcium 7.8 mg/dl (8.5-10.1); Creatinine Clr Calc Pharmacy 13.5 ml/min; Est GFR (African American) 13.5 ml/min; Est GFR (Non-African American) 11.6 ml/min; Potassium 3.3 mmol/L (3.5-5.1)
[2022-04-11 07:26] LABS: INR 4.6 (0.9-1.1); Prothrombin Time 45.1 Seconds (9.0-12.0)
[2022-04-11] MEDS: SODIUM BICARBONATE 650 MG TAB PO SCH (08:33)
[2022-04-11] MEDS: SIMVASTATIN 20 MG TAB PO SCH (08:35)
[2022-04-11] MEDS: CALCITRIOL 0.25 MCG CAPSULE PO SCH (08:35)
[2022-04-11] MEDS: CHOLECALCIFEROL 1,000 UNITS 25 MCG TAB PO SCH (08:36)
[2022-04-11] MEDS: METOPROLOL TARTRATE 25 MG TAB PO SCH (08:36)
[2022-04-11] MEDS: TAMSULOSIN HCL 0.4 MG CAP PO SCH (08:36)
--- NOTE | 2022-04-11 13:58 | Discharge Summary ---
Date of Service April 11, 2022 Admission HPI Per Admitting Provider This is a 77-year-old male with a history of atrial fibrillation, mechanical aortic valve replacement, chronic Warfarin use, dyslipidemia, hypertension, multiple myeloma, history of stem cell transplant who presented to [facility] for evaluation of weakness. Over the past 6 months, patient endorses intermittent episodes of diarrhea. He says they were relatively lower volume and did not contain blood/mucus. He says that over the past two weeks, they have increased in volume and frequency. Several times a day, very watery in appearance. No melena or hematochezia. He denies abdominal pain. He says his appetite has been lousy. He is not drinking much water or eating much each day -- really just toast and coffee, per his . No nausea, vomiting. Denies recent CP/palpitations/SOB/cough. Apparently he was notably hypothermic at home to 91.9F in the day prior to admission. He has not been confused, but has been extremely weak, "spending all day in bed, 24/" over the past week or so. His last colonoscopy was >10 years ago. He endorses a long-term history of loose stools. He denies EtOH, tobacco, or drug use. No herbal remedies or supplements. In the ER, patient was found to have normal vital signs. Admission weight at 73.9 kg from 77.6 kg in July 2021. Admission labs reveal WBC 7.2, hemoglobin 11.2, platelet 118, relative lymphopenia, ESR 47, CRP 3.25, supratherapeutic INR 8.5. Metabolic panel revealing BUN 126/creatinine 8.5, gap acidemia with AG 16 / HCO3 12, potassium 3.6, magnesium 1.6, calcium 7.1. Lipase notably elevated at 3000. TSH 1.7. CXR normal. He was given 2 L of normal saline. Admission Exam Per Admitting Provider General: tired appearing 77-year old male who is alert, oriented, and appears in no acute distress. HEENT: NCAT. - Eyes - Sclera are white, anicteric, and without injection. - Mouth - MMM - Neck - supple, no appreciable JVD Cardiac: Normal rate and regular rhythm; S1 and S2 present with grade 2/6 ESTUARDO at the RUSB radiating toward the apex. Pulmonary: Good respiratory effort with symmetric expansion of the chest. No use of accessory muscles. Lungs were clear to auscultation bilaterally with no crackles or wheezes. Abdominal: Normoactive bowel sounds. Abdomen was soft, nondistended, and non- tender to palpation. Extremities: Upper and lower extremities are warm and well perfused. No peripheral edema in the lower extremities bilaterally Psych: Well-developed, well-nourished, appropriately dressed for occasion. Behavior is cooperative and appropriate. Affect is WNL. Insight is appropriate. Principal Diagnosis ANDREA, Profuse Diarrhea Discharge Exam Constitutional WD/WN, vitals as above Eyes No conjunctival abnormalities Neck trachea midline, no thyromegaly Respiratory normal respiratory effort, lungs clear to auscultation Cardiovascular regular rate and rhythm, mechanical valve. +1 lower extremity edema Gastrointestinal (Abdomen) Soft, nontender. +Bowel sounds. No masses palpated. Skin no rashes, warm and dry Psychiatric A+Ox3, euthymic affect Discharge Data Allergies Allergy/AdvReac Type Severity Reaction Status Date / Time ASHLEY Inhibitors AdvReac Intermediate COUGH Verified 03/22/22 19:14 acetic acid AdvReac Intermediate Swelling Verified 03/30/22 18:17 of Lip/Tongue/Throat Consultations 03/22/22 18:44 ED Decision to Admit Stat 03/23/22 07:16 Consult Nephrology Routine 03/24/22 11:10 Consult Gastroenterology Routine Ordered Studies 03/22/22 18:43 CT Abd and Pelvis [CT abd pelvis wo con] Stat 03/27/22 13:33 US renal/blad retro comp Routine Hospital Course (1) Diarrhea: (2) Acute renal failure: (3) Chronic kidney disease: (4) Hypertension: (5) Elevated prostate specific antigen (PSA): (6) Dyslipidemia: (7) Atrial fibrillation: (8) Anemia: (9) Supratherapeutic INR: (10) Pancreatic lesion: (11) Urinary retention: Harley Swenson is a 77 yo male with PMH of multiple myeloma (s/p stem cell transplant), afib, mechanical aortic valve, HTN, dyslipidemia, and BPH who presented to the hospital with a 6 month history of worsening diarrhea. Patient was admitted to the hospital for acute kidney injury with a Cr: 8.50. A CTAP showed evidence of kidney and pancreatic mass requiring further evaluation w/ contrast scans, however unable to complete during admission due to significant elevation in Cr. Extensive stool work up completed including GI biofire neg, c diff neg, stool calprotectin neg, stool fat neg, VIP WNL, anti TTG neg, gastrin neg, FOBT positive but no BRBPR or dark stools. His diarrhea improved with cholestyramine and imodium, however did switch to constipation for several days before returning to diarrhea (although significantly less than on admission). Suspect that he has chronic constipation leading to overflow diarrhea, recommend outpatient colonoscopy. For the possible pancreatic mass, GI recommends outpatient follow up with pancreatic MRI +/-EUS. Nephrology was consulted. His ANDREA is likely secondary to intravascular depletion/dehydration with possible ATN component, likely compounded further by ongoing hydrochlorothiazide therapy in the setting of GI losses Cr slowly improved, continuing to encourage adequate oral intake. Cr 4.49 on day of discharge. He did have issues with urinary retention requiring cordero placement and started Flomax, was able to remove cordero and discharged home on Flomax nightly. His required epogen and 1 unit of PRBCs on 04/05 due to anemia (hgb 6.8), hemoglobin has been stable in low 8s since. Patient was discharged with instructions to follow up in office with nephrology in 1-2 weeks as well as avoid NSAIDs, and complete labs three times per week (Tuesday, Tuesday, Tuesday), starting Tuesday04/12/2022 which have already been ordered. Messi was scheduled to be discharged yesterday (04/10) but was cancelled after it was discovered that he did not have a walker at home. Walker was delivered to his room this morning prior to discharge. Total Time Total Time Spent Total Time Spent (In Minutes): <30 Discharge Plan Discharge Items Patient Disposition: Home - Self-Care Reason For Visit: PROFUSE DIARRHEA, PRFOUND ANDREA Discharge Diagnosis: ANDREA (in the setting of CKD) Activity: Per Instructions section Non-emergency contact: Primary Care Provider Call non-emergency contact if: you have any medication questions and your symptoms worsen Follow-up/Referrals: Brett Zhang MD [Physician] - (f/u 1-2 weeks after discharge) Doug Franklin MD [Primary Care Provider] - 04/22/22 10:30 am (APPOINTMENT WITH Virginia WOODY PA-C) Buddy Wilde MD [Physician] - (f/u outpatient colonoscopy) Artis Osullivan MD [Physician] - (f/u after discharge; urinary retention, hx of elevated PSA) Diet: Low Potassium (2gm) Ambulatory Orders: Basic Metabolic Panel (Routine) Timeframe: 20220421 Location: Determined by Patient Ordered By: Juanita Draper Basic Metabolic Panel (Routine) Timeframe: 20220430 Location: Determined by Patient Ordered By: Juanita Draper Basic Metabolic Panel (Routine) Timeframe: 20220412 Location: Determined by Patient Ordered By: Juanita Draper Basic Metabolic Panel (Routine) Timeframe: 20220414 Location: Determined by Patient Ordered By: Juanita Draper Basic Metabolic Panel (Routine) Timeframe: 20220419 Location: Determined by Patient Ordered By: Juanita Draper Basic Metabolic Panel (Routine) Timeframe: 20220416 Location: Determined by Patient Ordered By: Juanita Draper Basic Metabolic Panel (Routine) Timeframe: 20220423 Location: Determined by Patient Ordered By: Juanita Draper Basic Metabolic Panel (Routine) Timeframe: 20220426 Location: Determined by Patient Ordered By: Juanita Draper Basic Metabolic Panel (Routine) Timeframe: 20220428 Location: Determined by Patient Ordered By: Juanita Draper Addtl Attending Provider Instructions: You were admitted to the hospital for an acute worsening of diarrhea that had been ongoing for at least 6 months. Upon admission to the hospital, it was also found that your kidneys showed signs of significant injury. This was thought to be mostly related to your diarrhea and subsequent dehydration. Your stool was tested for bacteria and infectious causes but these tests were all negative. Other testing for a number of GI related illness (including Crohn's, parasitic infections, and celiac's) were all negative as well. A CT of your abdomen showed a pancreatic mass of undetermined significance. Your stool did test positive for occult blood (meaning blood that you don't notice by looking at your stool). Your diarrhea was eventually controlled with Imodium and cholestyramine resin. You should undergo a colonoscopy. In terms of your kidneys, you were treated with judicious IV fluids and encouraged to drink plenty of fluids. Your home hydrochlorothiazide was not given to you in the hospital because that medication can harm your kidneys in the setting of injury like this. A kidney ultrasound was performed and there were no signs of blockage or fluids backing up into/around your kidneys. Your kidneys slowly showed improvement. Upon discharge, you should continue to drink at least 60 oz of fluids per day. You were also started on a supplement of sodium bicarbonate due to the imbalance of your electrolytes caused by the kidney injury. You should continue this upon discharge as well. During your hospitalization, you also experienced issues with urinary retention. A cordero catheter was placed for this reason and you were started on a medication to help called flomax. You should continue this medication at home. A discharge summary will be sent to your primary care physician to ensure continuity of care. Please bring this discharge summary with you to your next office appointment so that your provider can review it at that time. Medications: Your medication list has been reviewed and reconciled upon discharge to ensure accuracy and continuity of care. An updated list of all your medications is included with your hospital discharge paperwork. Please review this list closely and make note of any changes to your medications. - You may use imodium over the counter as you need it to help with diarrhea. On the opposite side of things, you may use miralax as needed for constipation. - Flomax (to help prevent urinary retention) has been sent to your pharmacy. You should take this each night. - You should also continue to take over the counter sodium bicarbonate that was started in the hospital. This should be 1300 mg twice per day. - Continue taking an over the counter Vitamin D supplement (2000 IU per day). Calcitriol is another form of Vitamin D that was started due to your kidney function. This was sent to your pharmacy and should be taken daily. - Mirtazapine was added to your medication list to help with sleep and your appetite. This is once per day at night. - You should stop taking your hydrochlorothiazide due to its effects on your kidneys. - You should continue to monitor your INR for your coumadin. Today, your INR was 4.6 so the coumadin is still being held. Your goal INR is between 2.5-3.5, since it is still above that goal, we are holding the coumadin. Please continue to check the INR daily and discuss this further with your PCP. Although I have the coumadin as "discontinued" on your medication list, this is only because you should not take it on days like today when your INR is above 3.5. Follow up appointments: - Make a follow up appointment with your PCP within the next week. It is very important that you follow up with them shortly after discharge from the hospital. You should make sure to ask about the abnormality found within your pancreas and the next steps to evaluate this. - You should follow up with your urologist to discuss urinary retention. - You should continue to follow closely with nephrology to monitor your kidney function. You should get labs three times per week (Tuesday, Tuesday, Tuesday), starting Tuesday04/12/2022. - Keep all of your follow up appointments as already scheduled. If you cannot make an appointment, notify your provider. CONTACT YOUR PRIMARY CARE PROVIDER if you experience any of the following: - Decreased urine stream or a sensation that you are not able to empty your bladder - Recurrence of diarrhea - Difficulty following your treatment plan - Difficulty taking any of your medications CALL 911 OR GO TO THE EMERGENCY DEPARTMENT if you experience any of the follow ing: - Severe, intractable diarrhea - An increase in shortness of breath with activity - Inability to lie flat without feeling short of breath - Sudden, severe abdominal pain or nausea/vomiting - Severe chest pain or chest pain that radiates to your jaw or arm - Sudden, severe shortness of breath or difficulty breathing Pending Studies at Discharge: Yes Stand-Alone Forms: My [facility] [employer], Smoking Cessation Medications and DC Order Prescriptions: New tamsulosin 0.4 mg Capsule 0.4 mg PO HS Qty: 30 1RF calcitriol 0.25 mcg Capsule 0.25 mcg PO DAILY Qty: 30 1RF loperamide 2 mg Capsule 2 mg PO Q3H PRN (Reason: loose stool) Qty: 30 0RF mirtazapine 15 mg Tablet 15 mg PO HS Qty: 30 1RF cholecalciferol (vitamin D3) 25 mcg (1,000 unit) Capsule 2,000 unit PO QAM Qty: 30 0RF sodium bicarbonate 650 mg Tablet 1,300 mg PO BID Qty: 60 0RF Continued simvastatin 20 mg tablet 20 mg PO DAILY Qty: 90 3RF Rx Instructions: PER PT'S FAMILY "NOT SURE WHEN HE LAST TOOK MEDS". metoprolol tartrate 50 mg tablet 50 mg PO BID Qty: 60 5RF Rx Instructions: PER PT'S FAMILY "NOT SURE WHEN HE LAST TOOK MEDS". Discontinued hydrochlorothiazide 12.5 mg tablet 12.5 mg PO .COMPLEX Qty: 45 5RF Rx Instructions: PER PT'S FAMILY "NOT SURE WHEN HE LAST TOOK MEDS". 12.5 mg PO TAKE 1 TABLET BY MOUTH ALTERNATIN WITH 2 TABS EVERY OTHER DAY; warfarin 5 mg tablet 5 mg PO .COMPLEX Qty: 90 1RF Rx Instructions: TAKES 5 MG ON SUN, MON, WED, & TUE., THEN TAKES 2.5 MG ON , , & SAT. TAKES QPM. PER PT "TAKES EVERY DAY". Discharge Orders: Discharge Order (Routine); Ordered 04/11/22 Ordered By: Chioma Yuan Admission Data Admit Date/Time: 03/22/22 19:01 Attending Provider: Dylon Contreras Admit Provider: Henry Colindres Primary Care Provider: Doug Franklin Other Providers: Henry Colindres ; Kory Macias ; Buddy Wilde ; Dylon Contreras ; Eve Arndt Other Interventions: Discharge Summary Assessment (RN) Last Done: 04/11/22 11:57 Supervising Physician Co-Signing Physician Notes I personally examined the patient and verified all taylor points of history and exam, discussed case, and agree with decision making with Dr Yuan Less diarrhea, notes that it is far less volume than prior to admission, and seems different overall. He feels pretty comfortable it is likely overflow and would very much like to go home. vitals noted nad heent nc at mmm breathing unlabored no accessory muscles good effort skin no rashes no pallor or icterus neuro no focal deficits ARF - due most likely to prolonged prerenal insult from dehydration from diarrhea. no indications for acute HD. Close outpatient follow-uplabs Tuesday, continue sodium bicarbonate. Urinary retention - doing better. continue straight cath prn but no clear need to re-insert cordero diarrhea - most likely overflow from having been constipated, follow progression though - re-eval if worsens/persists. Right now seems to be playing out consistent with overflow. Neck step in terms of his chronic diarrhea (given extensive negative work-up) is colonoscopy which GI planned on doing as an outpatient Elevated INRhold Coumadin for now, next INR Tuesday, follow-up based on Coumadin clinic recommendations otherwise as above, stable for home. Will need close PCP, GI, nephrology follow-up, labs Tuesday/Tuesday/Tuesday, has outlined "red flags" as far as any shortness of breath needing to be evaluated right away, and that he might show a need for urgent dialysis based on his lab work. Discussed the need to stay well-hydratedoutlined a goal of at least 60 ounces of p.o. fluid intake daily. Discussed the possible need for more urgent follow-up if the diarrhea worsens. He expresses understanding (we have had this discussion now on a few separate days and he is expressed good understanding each timestable/safe for home under those parameters.
--- NOTE | 2022-04-11 14:26 | Billing Data ---
Date of Service April 10, 2022 Coding Level of Care Code 62721 SUB INP/OBS CARE 2/35MIN Comment disregard 04/10 <30mins d/c code - 232 instead, thanks!
--- NOTE | 2022-04-11 14:26 | Billing Data ---
Date of Service April 11, 2022 Coding Level of Care Code HOSP INP/OBS DISCH 30 MIN/LESS
[2022-04-15 15:43] LABS: 5-HIAA 3.1 mg/24 h (< OR = 6.0)
== END 2022-04-11 13:18 | disposition home or self-care (01) | DRG 391 ==
LOC: ED 15:12 → 3E 19:01 → SUATTDRO 19:01 → 3E 20:26 → 2S 03-24 12:00 → 3N 03-27 15:02

== ENCOUNTER 2022-04-22 12:39 | Inpatient (IN) ==
[2022-04-22 15:03] LABS: Hemoglobin 7.6 g/dl (14.0-18.0); Mean Corpuscular Hemoglobin 29.1 pg (25.0-34.0); Mean Corpuscular Volume 88.1 fL (80.0-100.0); Mean Platelet Volume 11.8 fL (9.4-12.4); Platelet Count 169 K/uL (130-400); RDW Coefficient of Variation 14.8 % (11.5-14.5); RDW Standard Deviation 47.8 fL (36.4-46.3); Red Blood Count 2.61 M/uL (4.70-6.10); White Blood Count 6.31 K/ul (4.8-10.8)
[2022-04-22 15:33] LABS: INR 5.5 (0.9-1.1); Partial Thromboplastin Ratio 2.8; Prothrombin Time 53.5 Seconds (9.0-12.0)
[2022-04-22 15:45] LABS: Partial Thromboplastin Time 76.6 Seconds (21.0-31.0)
[2022-04-22 15:48] LABS: Albumin Level 3.4 gm/dl (3.4-5.0); BUN Creatinine Ratio 10.4 (10-20); Bilirubin,Total 0.4 mg/dl (0.2-1.0); Calcium 6.5 mg/dl (8.5-10.1); Creatinine Clr Calc Pharmacy 7.1 ml/min; Est GFR (African American) 6.2 ml/min; Est GFR (Non-African American) 5.4 ml/min; Globulin 3.5 gm/dl (2.5-4.0); Potassium 3.2 mmol/L (3.5-5.1); Total Protein 6.9 gm/dl (6.0-8.3)
--- NOTE | 2022-04-22 15:51 | Emergency Department Note ---
History of Present Illness General Chief complaint: Abnormal Labs/Diagnostic Testing Stated complaint: GO TO TRIAGE Time Seen by Provider: 04/22/22 15:02 Source: patient and family ( at bedside) History of Present Illness Provider complaint: Abnormal labs 77-year-old male presents emergency department for abnormal labs. Patient reports that he was recently in the hospital for diarrhea and they were never able to discover the cause of his diarrhea. Patient states he went to get outpatient lab work done yesterday at [facility]. He states his doctor called him today and told him to go to the emergency department because his lab work was off. Patient reports he continues to have diarrhea despite the extensive work-up. He reports some weakness. Denies any abdominal pain chest pain difficulty breathing or fever. Patient reports he is on Coumadin however has held it for the last 2 days Home Medications Medication Instructions Recorded Confirmed Type simvastatin 20 mg tablet 20 mg PO DAILY #90 tabs 08/11/21 04/22/22 Rx calcitriol 0.25 mcg capsule 0.25 mcg PO DAILY #30 caps 04/08/22 04/22/22 Rx cholecalciferol (vitamin D3) 25 2,000 unit PO QAM #30 caps 04/08/22 04/22/22 Rx mcg (1,000 unit) capsule loperamide 2 mg capsule 2 mg PO Q3H PRN loose stool #30 04/08/22 04/22/22 Rx caps mirtazapine 15 mg tablet 15 mg PO HS #30 tabs 04/08/22 04/22/22 Rx sodium bicarbonate 650 mg tablet 1,300 mg PO BID #60 tabs 04/08/22 04/22/22 Rx tamsulosin 0.4 mg capsule 0.4 mg PO HS #30 caps 04/08/22 04/22/22 Rx metoprolol tartrate 50 mg tablet 50 mg PO BID #60 tabs 04/19/22 04/22/22 Rx peg 3350-electrolytes 236 240 ml PO Q10M #4,000 mL 04/21/22 04/22/22 Rx gram-22.74 gram-6.74 gram-5.86 gram solution (Golytely) warfarin 5 mg tablet 5 mg PO .COMPLEX 04/21/22 04/22/22 History heparin (porcine) 5,000 unit/mL 5,000 unit UD 04/22/22 04/22/22 History injection solution Allergies Allergy/AdvReac Type Severity Reaction Status Date / Time ASHLEY Inhibitors AdvReac Intermediate COUGH Verified 04/22/22 16:42 acetic acid AdvReac Intermediate Swelling Verified 04/22/22 16:42 of Lip/Tongue/Throat Past Med/Surg History Medical History Anemia Atrial fibrillation Dyslipidemia Elevated prostate specific antigen (PSA) Hypertension Metabolic acidosis Multiple myeloma Surgical History H/O stem cell transplant S/P AVR (aortic valve replacement) Family History Mother Alzheimer disease Sister Breast cancer Father Myocardial infarction Denies family history of Ovarian cancer Prostate cancer Colorectal cancer Social History Smoking Status: Never smoker Hx Alcohol Use: No Hx Substance Use: No Preferred Language: Hebrew Communication Ability: Effective Business Planning Manager Required: No Beliefs That Will Affect Care: None marital status: Current Living Situation: Spouse current occupational status: employed 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 Feels Safe at Home: Yes Childhood Exposure to Second-Hand Smoke: No Dental Care, Regularly: Yes Physical Activity Frequency: 1-2 Times per Week Physical Activity Frequency Comment: walk Seatbelt Use: always Sunscreen Use: Yes Assistive Devices: None Physical Exam Vital Signs Vital Signs - 24 hr 04/22/22 12:49 04/22/22 15:18 04/22/22 15:18 Temperature 36.5 C Temperature Source Temporal Artery Scan Pulse Rate 66 71 Pulse Rate [Right Radial] 71 Pulse Rhythm Regular Regular Pulse Rhythm [Right Radial] Regular Pulse Strength Normal Pulse Strength [Right Radial] Normal Respiratory Rate 16 20 20 Respiratory Effort / Characteristics Non-Labored Spontaneous Non-Labored Respiratory Depth Normal Normal Respiratory Pattern Regular Blood Pressure 129/61 Blood Pressure [Right Arm] 127/66 Blood Pressure Mean 83 Blood Pressure Mean [Right Arm] 86 Blood Pressure Position Sitting Blood Pressure Position [Right Arm] Sitting Pulse Oximetry 100 99 100 Oxygen Delivery Method Room Air Room Air Room Air Sepsis Recent Fever Within 48 Hours No Sepsis New/Unexplained Change in Mental Status No Sepsis Action Taken by Nursing No Action Required 04/22/22 16:00 Temperature Temperature Source Pulse Rate Pulse Rate [Right Radial] 71 Pulse Rhythm Pulse Rhythm [Right Radial] Regular Pulse Strength Pulse Strength [Right Radial] Normal Respiratory Rate 18 Respiratory Effort / Characteristics Non-Labored Spontaneous Respiratory Depth Normal Respiratory Pattern Regular Blood Pressure Blood Pressure [Right Arm] 118/60 Blood Pressure Mean Blood Pressure Mean [Right Arm] 79 Blood Pressure Position Blood Pressure Position [Right Arm] Sitting Pulse Oximetry 99 Oxygen Delivery Method Room Air Sepsis Recent Fever Within 48 Hours Sepsis New/Unexplained Change in Mental Status Sepsis Action Taken by Nursing Physical Exam GENERAL: oriented to person, place, and time. appears well-developed and well- nourished. HENT: Exam performed. - Head: Normocephalic and atraumatic. EYES: Conjunctivae and EOM are normal. Right eye exhibits no discharge. Left eye exhibits no discharge. No scleral icterus. NECK: Normal range of motion. Neck supple. No JVD present. CV: Normal rate, regular rhythm, normal heart sounds and intact distal pulses. There is no peripheral edema. Palpable radial pulses bue. PULM/CHEST: Effort normal and breath sounds normal. No respiratory distress. No stridor. no wheezes. no rales. ABD: The abdomen is soft. There is no tenderness. Rectal: Hemorrhoids present that are soft and flesh-colored. No evidence of t hrombosis or strangulation. No bright red blood per rectum Hemoccult negative. NEURO: Motor and sensation grossly intact. SKIN: Skin is warm and dry. He is not diaphoretic. PSYCH: normal mood and affect. Behavior is normal. Judgment and thought content normal. Course Course 1502: The patient was evaluated in room C2. A complete history and physical exam was performed Cardiac monitoring: An order was placed for continuous cardiac monitoring. The monitor shows a rate of 70 with atrial fibrilation rhythm interpreted by me External medical records reviewed. The patient was admitted to this facility from March 22, 2022 to April 11, 2022. Patient has a history of stem cell transplant. Per the discharge summary the patient has been having diarrhea for the past 6 months. Patient had an extensive work-up including a negative GI bio fire negative C. difficile negative stool calprotectin negative stool fat. D uring the hospital admission the patient has CT of the abdomen pelvis done on March 22, 2022 which showed nonspecific anterior otitis no bowel obstruction and a 1.8 cm process on the pancreas and an indeterminate lesion on the right kidney. Patient had a renal ultrasound done on March 27, 2022 Which was negative. The last labs in our system were from April 15, 2022 which showed a potassium of 3.2 a creatinine of 5.8 calcium was 7.2. External medical records from the [facility] system were obtained by Jennifer patient manager via [employer]. Patient had blood work done in the [facility] system yesterday April 21, 2022 which showed an INR of 4.1. Albumin 2.93. Hemoglobin 8.1 Gypsum free light chains 100.82 lambda free light chains 55.02 and kappa lambda free light chains 1.83. BUN 80 creatinine 8.2 potassium 2.8 calcium 6.6. 1612: Vital signs stable. Hemoglobin today 7 6. INR today 5.5. Patient reports that he is not been taking his Coumadin. Vitamin K 5 mg p.o. given for the patient's increasing INR as his INR was 4.1 yesterday. Patient's creatinine today is 8.56. Patient's calcium today 6.5. Calcium gluconate IV ordered for the patient. [facility] will be contacted. Administered Medications Lactated Ringer's (Lr) 1,000 mls @ 125 mls/hr IV .Q8H SYLVIA Stop: 04/23/22 04:35 Last Admin: 04/22/22 20:59 Dose: 125 mls/hr Documented By: HENNA Magnesium Sulfate/Dextrose (Magnesium Sulfate / D5w) 1 gm in 100 mls @ 50 ml s/hr IV Q2H SYLVIA Stop: 04/23/22 02:59 Last Admin: 04/22/22 21:00 Dose: 50 mls/hr Documented By: HENNA Discontinued Medications Calcium Gluconate () 1,000 mg in 60 mls @ 240 mls/hr IV NOW STA Stop: 04/22/22 16:08 Last Infusion: 04/22/22 16:39 Dose: 0 mls/hr Documented By: Admin: 04/22/22 16:18 Dose: 240 mls/hr Documented By: HENNA Phytonadione (Phytonadione 5 Mg Tab) 5 mg PO NOW STA Stop: 04/22/22 15:55 Last Admin: 04/22/22 16:14 Dose: 5 mg Documented By: HENNA Medical Decision Making Medical Records Attestation: I reviewed the patient's medical records. External medical records reviewed. The patient was admitted to this facility from March 22, 2022 to April 11, 2022. Patient has a history of stem cell transplant. Per the discharge summary the patient has been having diarrhea for the past 6 months. Patient had an extensive work-up including a negative GI bio fire negative C. difficile negative stool calprotectin negative stool fat. During the hospital admission the patient has CT of the abdomen pelvis done on March 22, 2022 which showed nonspecific anterior otitis no bowel obstruction and a 1.8 cm process on the pancreas and an indeterminate lesion on the right kidney. Patient had a renal ultrasound done on March 27, 2022 Which was negative. The last labs in our system were from April 15, 2022 which showed a potassium of 3.2 a creatinine of 5.8 calcium was 7.2. External medical records from the [facility] system were obtained by Jennifer patient manager via [employer]. Patient had blood work done in the [facility] system yesterday April 21, 2022 which showed an INR of 4.1. Albumin 2.93. Hemoglobin 8.1 Gypsum free light chains 100.82 lambda free light chains 55.02 and kappa lambda free light chains 1.83. Laboratory Data 04/22/22 14:44 04/22/22 14:44 Lab Results 04/22/22 04/22/22 04/22/22 Range/Units 14:44 14:44 14:44 WBC 6.31 (4.8-10.8) K/ul RBC 2.61 L (4.70-6.10) M/uL Hgb 7.6 L (14.0-18.0) g/dl Hct 23.0 L (42.0-52.0) % MCV 88.1 (80.0-100.0) fL MCH 29.1 (25.0-34.0) pg MCHC 33.0 (32.0-36.0) g/dL RDW Std Deviation 47.8 H (36.4-46.3) fL RDW Coeff of Berto 14.8 H (11.5-14.5) % Plt Count 169 (130-400) K/uL MPV 11.8 (9.4-12.4) fL PT 53.5 H (9.0-12.0) Seconds INR 5.5 H (0.9-1.1) APTT 76.6 H* (21.0-31.0) Seconds PTT Ratio 2.8 Sodium (136-145) mmol/L Potassium (3.5-5.1) mmol/L Chloride (98-107) mmol/L Carbon Dioxide (21-32) mmol/L Anion Gap (3-11) BUN (6-23) mg/dl Creatinine (0.6-1.4) mg/dl Est Cr Clr Drug Dosing ml/min Est GFR ( Amer) ml/min Est GFR (Non-Af Amer) ml/min BUN/Creatinine Ratio (10-20) Glucose (70-99(Fasting)) mg/dl Calcium (8.5-10.1) mg/dl Magnesium (1.7-2.4) mg/dl Total Bilirubin (0.2-1.0) mg/dl AST (13-39) U/L ALT (7-52) U/L Alkaline Phosphatase (34-104) U/L Total Protein (6.0-8.3) gm/dl Albumin (3.4-5.0) gm/dl Globulin (2.5-4.0) gm/dl Albumin/Globulin Ratio (0.9-2) SARS-CoV-2 (PCR) (Negative) Influenza Type A (PCR) (Neg) Influenza Type B (PCR) (Neg) RSV (RT-PCR) (Neg) Blood Type O Positive Antibody Screen NEGATIVE 04/22/22 04/22/22 04/22/22 Range/Units 14:44 14:44 15:48 WBC (4.8-10.8) K/ul RBC (4.70-6.10) M/uL Hgb (14.0-18.0) g/dl Hct (42.0-52.0) % MCV (80.0-100.0) fL MCH (25.0-34.0) pg MCHC (32.0-36.0) g/dL RDW Std Deviation (36.4-46.3) fL RDW Coeff of Berto (11.5-14.5) % Plt Count (130-400) K/uL MPV (9.4-12.4) fL PT (9.0-12.0) Seconds INR (0.9-1.1) APTT (21.0-31.0) Seconds PTT Ratio Sodium 140 (136-145) mmol/L Potassium 3.2 L (3.5-5.1) mmol/L Chloride 111 H (98-107) mmol/L Carbon Dioxide 12 L (21-32) mmol/L Anion Gap 17 H (3-11) BUN 89 H (6-23) mg/dl Creatinine 8.56 H* (0.6-1.4) mg/dl Est Cr Clr Drug Dosing 7.1 ml/min Est GFR ( Amer) 6.2 ml/min Est GFR (Non-Af Amer) 5.4 ml/min BUN/Creatinine Ratio 10.4 (10-20) Glucose 112 H (70-99(Fasting)) mg/dl Calcium 6.5 L (8.5-10.1) mg/dl Magnesium 1.0 L Cancelled (1.7-2.4) mg/dl Total Bilirubin 0.4 (0.2-1.0) mg/dl AST 11 L (13-39) U/L ALT 9 (7-52) U/L Alkaline Phosphatase 63 (34-104) U/L Total Protein 6.9 (6.0-8.3) gm/dl Albumin 3.4 (3.4-5.0) gm/dl Globulin 3.5 (2.5-4.0) gm/dl Albumin/Globulin Ratio 1.0 (0.9-2) SARS-CoV-2 (PCR) NEGATIVE (Negative) Influenza Type A (PCR) Negative (Neg) Influenza Type B (PCR) Negative (Neg) RSV (RT-PCR) Negative (Neg) Blood Type Antibody Screen [facility] Narrative 1502: The patient was evaluated in room C2. A complete history and physical exam was performed Cardiac monitoring: An order was placed for continuous cardiac monitoring. The monitor shows a rate of 70 with atrial fibrilation rhythm interpreted by al External medical records reviewed. The patient was admitted to this facility from March 22, 2022 to April 11, 2022. Patient has a history of stem cell transplant. Per the discharge summary the patient has been having diarrhea for the past 6 months. Patient had an extensive work-up including a negative GI bio fire negative C. difficile negative stool calprotectin negative stool fat. During the hospital admission the patient has CT of the abdomen pelvis done on March 22, 2022 which showed nonspecific anterior otitis no bowel obstruction and a 1.8 cm process on the pancreas and an indeterminate lesion on the right kidney. Patient had a renal ultrasound done on March 27, 2022 Which was negative. The last labs in our system were from April 15, 2022 which showed a potassium of 3.2 a creatinine of 5.8 calcium was 7.2. External medical records from the [facility] system were obtained by Jennifer patient manager via [employer]. Patient had blood work done in the [facility] system yesterday April 21, 2022 which showed an INR of 4.1. Albumin 2.93. Hemoglobin 8.1 Gypsum free light chains 100.82 lambda free light chains 55.02 and kappa lambda free light chains 1.83. BUN 80 creatinine 8.2 potassium 2.8 calcium 6.6. 1612: Vital signs stable. Hemoglobin today 7 6. INR today 5.5. Patient reports that he is not been taking his Coumadin. Vitamin K 5 mg p.o. given for the patient's increasing INR as his INR was 4.1 yesterday. Patient's creatinine today is 8.56. Patient's calcium today 6.5. Calcium gluconate IV ordered for the patient. [facility] team will be contacted. Impression & Plan Hypocalcemia, Supratherapeutic INR, Acute renal failure, Chronic kidney disease Discharge Plan Visit Data Chief Complaint: Abnormal Labs/Diagnostic Testing Stated Complaint: GO TO TRIAGE ED Provider: Cory Cardenas Discharge Problem: Hypocalcemia, Supratherapeutic INR, Acute renal failure, Chronic kidney disease Patient Disposition: Admitted As Inpatient Discharge Instructions Interventions: ED Discharge Assessment Last Done: 04/22/22 20:37
[2022-04-22] MEDS ORDERED: CALCIUM GLUCONATE 1,000 MG/60 ML BAG IV STA (15:54)
[2022-04-22] MEDS ORDERED: PHYTONADIONE 5 MG TAB PO STA (15:54)
[2022-04-22 16:53] LABS: Influenza A virus by PCR Negative (Neg); Influenza B virus by PCR Negative (Neg); RSV by PCR Negative (Neg); SARS CoV2 RNA(COVID-19) Ceph NEGATIVE (Negative)
--- NOTE | 2022-04-22 17:13 | History & Physical Report ---
Date of Service April 22, 2022 Assessment & Plan (1) Hypokalemia: Plan: ARF on CKD Creatinine again uptrending to 8 Previously thought to be worsened in the setting of hypovolemia, patient has had continued diarrhea and volume contraction Does have a history of LUTS, DDx includes obstructive. No repeat imaging obtained in ER, ultrasound ordered. - Non-anuric. Volume repletion ordered. Is w/ metabolic acidodis. Renal consulted. ?bicarb. - Bladder scan for retention Renally dose medications BMP daily 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 difficile negative Continue symptomatic treatmentWith Imodium Potassium repletion as needed Coagulopathy INR elevated from 2.6 on prior discharge up to 5.5, no anticoagulant use. Hypokalemia 3.2 No known liver disease, no transaminitis, total bili is normal - Vitamin K x1 given - Prior CT 03/22/2022 reviewed. Unenhanced liver at that time was normal with no ductal dilation or abnormalities noted No leukocytosis, no fever. Does not appear to have a septic coagulopathy at this time DVT prophylaxis: SCDs/heparin, Lovenox contraindicated due to ARF Diet: Renal Code: Full Dispo: Telemetry (2) Acute renal failure: (3) Chronic kidney disease: (4) S/P AVR (aortic valve replacement): (5) Secondary hyperparathyroidism: (6) Acute kidney injury: History of Present Illness Primary Care Provider: Doug Franklin MD Messi is a 77-year-old male with a history of recurrent and persistent watery diarrhea, progressive kidney injury, paroxysmal A-fib, hyperlipidemia recently admitted and discharged on 04/11/2022 after being admitted for acute renal failure and worsening diarrhea. He represents with continued diarrhea, worsening renal function, and multiple lab abnormalities. Prior work-up BioFire's, C. difficile, stool calprotectin, stool fat, VIP, anti- tTG, gastrin were all normal Patient was seen by nephrology 04/19/2022, creatinine has been gradually improving and was noted for baseline of around 1.7. His creatinine was 8.5 at peak at prior admission, 4.5 at discharge. Has history of multiple myeloma, ANDREA was suspected to be due to volume depletion Clinically of diarrhea was related to pancreatic insufficiency Diarrhea gradually improving with immodium. NO abdominal pain. No blood/melena. Has not trialed any pancreatic enzyme. Warfarin: Has been off it, was held pending colonoscopy prep. Last dose was 3 days ago. Takes as indicated per coumadin clinic, normally takes 5mg 3x per week thinks MWF other days half tablets. feels 80% of normal + pitting edema of the legs denies heart problems no tobacco. Medical History: Reviewed Medications: Reviewed Surgical History: Reviewed Allergies: Reviewed Social History: REviewed Code Status:Full Allergies Allergy/AdvReac Type Severity Reaction Status Date / Time ASHLEY Inhibitors AdvReac Intermediate COUGH Verified 04/22/22 16:42 acetic acid AdvReac Intermediate Swelling Verified 04/22/22 16:42 of Lip/Tongue/Throat Home Medications Medication Instructions Recorded Confirmed Type simvastatin 20 mg tablet 20 mg PO DAILY #90 tabs 08/11/21 04/22/22 Rx calcitriol 0.25 mcg capsule 0.25 mcg PO DAILY #30 caps 04/08/22 04/22/22 Rx cholecalciferol (vitamin D3) 25 2,000 unit PO QAM #30 caps 04/08/22 04/22/22 Rx mcg (1,000 unit) capsule loperamide 2 mg capsule 2 mg PO Q3H PRN loose stool #30 04/08/22 04/22/22 Rx caps mirtazapine 15 mg tablet 15 mg PO HS #30 tabs 04/08/22 04/22/22 Rx sodium bicarbonate 650 mg tablet 1,300 mg PO BID #60 tabs 04/08/22 04/22/22 Rx tamsulosin 0.4 mg capsule 0.4 mg PO HS #30 caps 04/08/22 04/22/22 Rx metoprolol tartrate 50 mg tablet 50 mg PO BID #60 tabs 04/19/22 04/22/22 Rx peg 3350-electrolytes 236 240 ml PO Q10M #4,000 mL 04/21/22 04/22/22 Rx gram-22.74 gram-6.74 gram-5.86 gram solution (Golytely) warfarin 5 mg tablet 5 mg PO .COMPLEX 04/21/22 04/22/22 History heparin (porcine) 5,000 unit/mL 5,000 unit UD 04/22/22 04/22/22 History injection solution Past Med/Surg History Medical History Anemia Atrial fibrillation Dyslipidemia Elevated prostate specific antigen (PSA) Hypertension Metabolic acidosis Multiple myeloma Surgical History H/O stem cell transplant S/P AVR (aortic valve replacement) Family History Mother Alzheimer disease Sister Breast cancer Father Myocardial infarction Denies family history of Ovarian cancer Prostate cancer Colorectal cancer Social History Smoking Status: Never smoker Second Hand Exposure: No; Hx Alcohol Use: No Hx Substance Use: No Preferred Language: Omani Communication Ability: Effective Associate Software Application Engineer Required: No Beliefs That Will Affect Care: None marital status: Current Living Situation: Spouse current occupational status: employed 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 NAD. Cooperative. HEENT: Atraumatic, normocephalic. Pulm: CTAB A&P. -wheezes, -rales, -rhonchi. Symmetrical chest rise. No increased work of breathing. No respiratory distress. Cardiac: RRR, -mrg. Radial pulses intact and symmetrical. Abdominal: Nontender, nondistended, soft. BS present. Bowel sounds diminished Skin: Warm, dry. Moves extremities equally. Cap refill is intact. Results & Data Results & Data ([facility]) Vital Signs (Past 12 Hours) Vital Signs Temp Pulse Pulse Resp BP BP Pulse Ox 04/22/22 16:00 71 18 118/60 99 04/22/22 15:18 71 20 100 04/22/22 15:18 71 20 127/66 99 04/22/22 12:49 36.5 C 66 16 129/61 100 O2 Del Method 04/22/22 16:00 Room Air 04/22/22 15:18 Room Air 04/22/22 15:18 Room Air 04/22/22 12:49 Room Air PG Care Time/CCT Total # of Minutes Spent Total Time Spent with Patient: Total time spent is greater than 50% in coordination of care (as documented) at patient's floor/unit and/or counseling patient: Coding Level of Care Code 88860 INT INP/OBS CARE 3/75MIN Diagnoses Hypokalemia E87.6 Acute renal failure N17.9 Chronic kidney disease N18.9 S/P AVR (aortic valve replacement) Z95.2 Secondary hyperparathyroidism N25.81 Acute kidney injury N17.9
[2022-04-22] MEDS ORDERED: LACTATED RINGER'S 1,000 ML IV SCH (20:36)
[2022-04-22] MEDS ORDERED: LOPERAMIDE HCL 2 MG CAP PO PRN (20:36)
[2022-04-22] MEDS ORDERED: ACETAMINOPHEN 325 MG TAB PO PRN (20:36)
[2022-04-22] MEDS ORDERED: POTASSIUM CHLORIDE CRTAB 20 MEQ TABCR PO SCH (21:00)
[2022-04-22] MEDS: MAGNESIUM SULFATE / D5W 1 GM/100 ML BAG IV SCH ×2 (21:00→22:57)
[2022-04-22] MEDS: SODIUM BICARBONATE 650 MG TAB PO SCH (22:55)
[2022-04-22] MEDS: CALCIUM CARBONATE 1,250 MG/5 ML UDC PO SCH (22:55)
[2022-04-22] MEDS: METOPROLOL TARTRATE 50 MG TAB PO SCH (22:55)
[2022-04-22] MEDS: MIRTAZAPINE TAB 15 MG TAB PO SCH (22:56)
[2022-04-22] MEDS: TAMSULOSIN HCL 0.4 MG CAP PO SCH (22:57)
[2022-04-23] MEDS: POTASSIUM CHLORIDE PWD 20 MEQ PACK PO SCH ×2 (00:44→08:50)
[2022-04-23 00:50] LABS: Total Protein Urine Random 146.7 mg/dl (0-11.9)
[2022-04-23 00:55] LABS: Creatinine Urine Random 74.7 mg/dl
[2022-04-23] MEDS: MAGNESIUM SULFATE / D5W 1 GM/100 ML BAG IV SCH (03:31)
[2022-04-23] MEDS: PANCREAZE (LIPASE 10,500U) CAP PO SCH ×3 (07:42→16:51)
[2022-04-23 07:56] LABS: Calcium 6.5 mg/dl (8.5-10.1); Creatinine Clr Calc Pharmacy 7.1 ml/min; Est GFR (African American) 5.9 ml/min; Est GFR (Non-African American) 5.1 ml/min; Potassium 3.2 mmol/L (3.5-5.1)
[2022-04-23] MEDS: METOPROLOL TARTRATE 50 MG TAB PO SCH ×2 (08:50→19:49)
[2022-04-23] MEDS: CALCIUM CARBONATE 1,250 MG/5 ML UDC PO SCH ×2 (08:50→19:49)
[2022-04-23] MEDS: SODIUM BICARBONATE 650 MG TAB PO SCH (08:51)
[2022-04-23] MEDS: SIMVASTATIN 20 MG TAB PO SCH (08:51)
[2022-04-23] MEDS ORDERED: CALCITRIOL 0.25 MCG CAPSULE PO SCH (09:00)
[2022-04-23] MEDS ORDERED: CHOLECALCIFEROL 1,000 UNITS 25 MCG TAB PO SCH (09:00)
--- NOTE | 2022-04-23 09:58 | Nephrology Consultation ---
Date of Consultation April 23, 2022 Assessment & Plan (1) Acute kidney injury: * Recurrent ANDREA/CKD - possibly related to dehydration, urinary obstruction * Will provide IV hydration * Will place Chandler catheter * Renal US has been ordered * Monitor PRP, I&O * Discussed potential need for vascular access placement & HD if kidney function fails to respond to the above measures (2) Chronic kidney disease: * Baseline Cr 1.4-1.7 (11/15/19) (3) Hypokalemia: * Will order 20 mEq KCl IV this am * Repeat PRP in am (4) Metabolic acidosis: * Will order 1L sterile water w/ 150 mEq NaHCO3 IV at 125 cc/hr today (5) Secondary hyperparathyroidism: * Low Ca and vitamin D. PTH > 800 * Will increase Calcitriol to 0.5 mcg po daily (6) Urinary retention: * h/o BPH and elevated PSA * Will order Chandler catheter, strict I&O's (7) Diarrhea: * Consult Gastroenterology. Consider colonoscopy this hospitalization * Will order KUB x-ray due to abdominal distention, hypoactive bowel sounds and tympani to percussion History of Present Illness Reason for Consultation: ANDREA/CKD Attending Physician: Russel Tang MD History of Present Illness Mr. Londono is a 77 year old male who is seen at the request of the hospitalist service for evaluation of recurrent ANDREA/CKD. Information for the HPI is obtained from patient interview and review of medical records and is summarized as follows: Mr. Londono has CKD w/ baseline Cr 1.4-1.7. Prior evaluation revealed mild renal asymmetry and BPH but no hydronephrosis. Urine microscopy has been negative for significant hematuria or cellular casts. UPCR has been 2.0. Mr. Londono's medical history is significant for multiple myeloma s/p autologous stem cell transplant 2014, paroxysmal atrial fibrillation, mechanical aortic valve replacement, hypertension, dyslipidemia, and BPH. He was last hospitalized at [facility] 03/23 - 04/11/22 due to diarrhea, dehydration and ANDREA. Cr peaked at 8.5 and improved to 4.5 following IV hydration. Renal recovery was slowed during his l ast hospitalization due to BPH and difficulty voiding. He did improve following Chandler catheter insertion. Mr. Londono reported diarrhea for 6 months that rapidly worsened at the time of his last hospitalization. Stool biofire and C. Difficile testing were negative. Gastroenterology recommended outpatient colonoscopy which was scheduled for 05/05/22. He was treated symptomatically w/ cholestyramine. Mr. Londono was seen in the Nephrology office 04/19/22. His clothes were soiled w/ stool. He reported ongoing diarrhea. Cr was noted to have risen to 5.8 and readmission was advised. Mr. Londono declined hospitalization noting that he had just returned home after 3 weeks in the hospital. Yesterday Mr. Londono was seen in his PCP's office. He again noted persistent diarrhea. Cr was noted to be 8.56. I spoke w/ Mr. Londono's PCP by telephone and again advised hospitalization for treatment of diarrhea and ANDREA/CKD. Note that 03/22/[address] revealed questionable 1.8 cm lesion in the uncinate process of the pancreas and a 1.2 cm lesion arising from the R kidney. These will require follow up evaluation in 3-6 months. Allergies Allergy/AdvReac Type Severity Reaction Status Date / Time ASHLEY Inhibitors AdvReac Intermediate COUGH Verified 04/22/22 16:42 acetic acid AdvReac Intermediate Swelling Verified 04/22/22 16:42 of Lip/Tongue/Throat Home Medications Medication Instructions Recorded Confirmed Type simvastatin 20 mg tablet 20 mg PO DAILY #90 tabs 08/11/21 04/22/22 Rx calcitriol 0.25 mcg capsule 0.25 mcg PO DAILY #30 caps 04/08/22 04/22/22 Rx cholecalciferol (vitamin D3) 25 2,000 unit PO QAM #30 caps 04/08/22 04/22/22 Rx mcg (1,000 unit) capsule loperamide 2 mg capsule 2 mg PO Q3H PRN loose stool #30 04/08/22 04/22/22 Rx caps mirtazapine 15 mg tablet 15 mg PO HS #30 tabs 04/08/22 04/22/22 Rx sodium bicarbonate 650 mg tablet 1,300 mg PO BID #60 tabs 04/08/22 04/22/22 Rx tamsulosin 0.4 mg capsule 0.4 mg PO HS #30 caps 04/08/22 04/22/22 Rx metoprolol tartrate 50 mg tablet 50 mg PO BID #60 tabs 04/19/22 04/22/22 Rx peg 3350-electrolytes 236 240 ml PO Q10M #4,000 mL 04/21/22 04/22/22 Rx gram-22.74 gram-6.74 gram-5.86 gram solution (Golytely) warfarin 5 mg tablet 5 mg PO .COMPLEX 04/21/22 04/22/22 History heparin (porcine) 5,000 unit/mL 5,000 unit UD 04/22/22 04/22/22 History injection solution Patient History Medical History Anemia Atrial fibrillation Dyslipidemia Elevated prostate specific antigen (PSA) Hypertension Metabolic acidosis Multiple myeloma Surgical History H/O stem cell transplant S/P AVR (aortic valve replacement) Family History Mother Alzheimer disease Sister Breast cancer Father Myocardial infarction Denies family history of Ovarian cancer Prostate cancer Colorectal cancer Social History Smoking Status: Never smoker Second Hand Exposure: No; Do You Dip or Chew Tobacco: No; Tobacco Cessation Education Requested by Patient: No Hx Alcohol Use: No Hx Substance Use: No Preferred Language: Pakistani Communication Ability: Effective Seal Skinner Required: No Beliefs That Will Affect Care: None marital status: Current Living Situation: Spouse current occupational status: employed 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 Other Information That Helps Us Care for You: No Feels Safe at Home: Yes Safety Concerns: Feels Safe At This Time Childhood Exposure to Second-Hand Smoke: No Dental Care, Regularly: Yes Physical Activity Frequency: 1-2 Times per Week Physical Activity Frequency Comment: walk Seatbelt Use: always Sunscreen Use: Yes Assistive Devices: None Review of Systems Constitutional: no fever Eyes: no problem reported Ear, Nose, Mouth, Throat: no problem reported Respiratory: no cough and no dyspnea Cardiovascular: no chest pain Gastrointestinal: + bloating and + diarrhea/loose stools Genitourinary: no urinary hesitancy Neurologic: no localized weakness Physical Exam Constitutional: + frail appearing Eyes: PERRL, conjunctivae normal, anicteric sclerae ENMT: external ear and nose normal, oropharynx normal Neck: trachea midline, no thyromegaly Respiratory: normal respiratory effort, lungs clear to auscultation Cardiovascular: Rate/Rhythm: + irregularly irregular Heart Sounds: + click (prosthetic S2) Vessels: no JVD Extremities: + edema (trace pretibial and ankle edema) Gastrointestinal (Abdomen): Inspection/Auscultation: + abdomen distended and + hypoactive bowel sounds Percussion/Palpation: + tympanic to percussion; abdomen nontender and no guarding Neurologic: Speech / Cognition: normal speech and normal cognition Results & Data ([facility]) Vital Signs (Past 12 Hours) Vital Signs Temp Pulse Pulse Resp BP Pulse Ox O2 Del Method 04/23/22 08:19 67 04/23/22 07:52 36.4 C L 77 18 150/67 H 96 Room Air 04/23/22 03:13 36.5 C 67 16 125/62 98 Room Air 04/22/22 22:15 36.5 C 84 14 138/69 99 Room Air 04/22/22 21:56 73 18 128/65 100 Room Air Laboratory Results Laboratory Tests 04/15/22 04/15/22 04/15/22 00:00 00:00 00:00 WBC Hgb Hct Plt Count Sodium Potassium Chloride Carbon Dioxide BUN Creatinine Calcium Albumin 3.4 L Prostate Specific Ag 56.19 H 25-OH Vitamin D Total 18 L 04/22/22 04/23/22 14:44 06:25 WBC 6.31 Hgb 7.6 L Hct 23.0 L Plt Count 169 Sodium 140 Potassium 3.2 L Chloride 112 H Carbon Dioxide 12 L BUN 89 H Creatinine 8.90 H* D Calcium 6.5 L Albumin Prostate Specific Ag 25-OH Vitamin D Total PG Care Time/CCT Total # of Minutes Spent Total Time Spent with Patient: Total time spent is greater than 50% in coordination of care (as documented) at patient's floor/unit and/or counseling patient: Coding Level of Care Code 25555 IN/OBS CONSULT LVL 5,80M Diagnoses Acute kidney injury N17.9 Chronic kidney disease N18.9 Hypokalemia E87.6 Metabolic acidosis E87.20 Secondary hyperparathyroidism N25.81 Urinary retention R33.9 Diarrhea R19.7
[2022-04-23] MEDS: SODIUM BICARBONATE 8.4% 150 MEQ in WATER, STERILE 1,000 ML IV SCH ×2 (10:19→19:50)
[2022-04-23] MEDS: POTASSIUM CHLORIDE / WTR 10 MEQ/100 ML PLCT IV SCH ×2 (10:19→11:48)
[2022-04-23] MEDS: CALCITRIOL 0.25 MCG CAPSULE PO SCH (10:24)
--- NOTE | 2022-04-23 11:14 | Ultrasound Report ---
US renal/blad retro comp CLINICAL HISTORY: ANDREA/CKD TECHNIQUE: Multiple sonographic real-time images of the kidneys and bladder were obtained. COMPARISON: Comparison is made to renal ultrasound 03/27/2022 FINDINGS: The right kidney measures 10.1 cm in length, and the left kidney measures 10.8 cm in length. The right renal cortex is diffusely echogenic in appearance. No hydronephrosis is identified. No augustus l lesion is identified. No perinephric fluid collection is seen. The left renal cortex is diffusely echogenic in appearance. Pelviectasis is seen without hydronephros is. A few cysts are seen. No perinephric fluid collection is seen. Bladder status post catheterization, empty. No large intraluminal mass is seen. IMPRESSION: Kidneys appear echogenic compatible with medical renal disease, more conspicuous than in prior exam. No hydronephrosis or acute abnormalities are seen. ACT 112: Negative or not required by law. Electronically signed by: Jacob Moreira M.D. 04/23/2022 11:13 AM
[2022-04-23 11:27] LABS: Appearance Urine Turbid (Clear); Bacteria Urine Automated Negative (Negative); Bilirubin Urine Negative (Negative); Blood Urine 3+ (Negative); Color Urine Yellow; Glucose Urine UA Negative (Negative); Ketones Urine Negative (Negative); Leukocyte Esterase Urine 3+ (Negative); Nitrite Urine Negative (Negative); Protein Urine 2+ (Negative); RBC Urine Automated >30 /hpf (0-4); Specific Gravity Urine 1.009 (1.000-1.030); Urobilinogen Urine Negative (Negative); WBC Urine Automated >30 /hpf (0-5)
--- NOTE | 2022-04-23 11:29 | Gastrointestinal Consultation ---
Date of Consultation April 23, 2022 Assessment & Plan (1) Diarrhea: Patient tells me that diarrhea has been improved with imodium. He was planned for outpatient colonoscopy for next week however given his current renal issues will likely need to hold off on this until after he has stabilized from a renal standpoint. past stool studies have been unremarkable. 04/22/22 he was heme negative. he denies any other gi concerns. - continue with imodium 2mg q 3 hours prn diarrhea. max 8 in 24 hour period. Supervising Physician Co-Signing Physician Notes Agree with CAIO Manning as above Abd: Soft, NT, ND, +BS Continue current therapy and supportive care Outpatient colonoscopy if symptoms persist History of Present Illness Reason for Consultation: chronic diarrhea/ assess for colonoscopy Requesting Physician: Brett Zhang MD Attending Physician: uRssel Tang MD History of Present Illness Nicko is a 77 year old male with a history of progressive kidney injury, paroxysmal A-fib on coumadin (last dose 3 days ago), hyperlipidemia recently admitted and discharged on 04/11/2022 after being admitted for acute renal failure and diarrhea who presented back the ED yesterday after having labs done with his primary care provider showing worsening renal function. Admitted for worsening renal function. Our office had recently just saw this patient this past week for the diarrhea where he reported that diarrhea had been improved with imodium. previously had stool studies done that were unremarkable. He was set up for an outpatient colonoscopy that was scheduled to be done next week. Patient tells me that diarrhea has significantly improved with the use of imodium. He has had no bowel movements since admission per patient. His had told me his diarrhea had been ongoing since the beginning of this year. no blood in the stools. no melena. denies nausea, vomiting, abdominal pain, heartburn, dysphagia. 04/22/22 hgb 7.6, hct 23, wbc 6.31, inr 5.5, sodium 140, potassium 3.2, bun 89, creatinine 8.9. LFTs unremarkable. stools were heme negative 04/22/22. Allergies Allergy/AdvReac Type Severity Reaction Status Date / Time ASHLEY Inhibitors AdvReac Intermediate COUGH Verified 04/22/22 16:42 acetic acid AdvReac Intermediate Swelling Verified 04/22/22 16:42 of Lip/Tongue/Throat Home Medications Medication Instructions Recorded Confirmed Type simvastatin 20 mg tablet 20 mg PO DAILY #90 tabs 08/11/21 04/22/22 Rx calcitriol 0.25 mcg capsule 0.25 mcg PO DAILY #30 caps 04/08/22 04/22/22 Rx cholecalciferol (vitamin D3) 25 2,000 unit PO QAM #30 caps 04/08/22 04/22/22 Rx mcg (1,000 unit) capsule loperamide 2 mg capsule 2 mg PO Q3H PRN loose stool #30 04/08/22 04/22/22 Rx caps mirtazapine 15 mg tablet 15 mg PO HS #30 tabs 04/08/22 04/22/22 Rx sodium bicarbonate 650 mg tablet 1,300 mg PO BID #60 tabs 04/08/22 04/22/22 Rx tamsulosin 0.4 mg capsule 0.4 mg PO HS #30 caps 04/08/22 04/22/22 Rx metoprolol tartrate 50 mg tablet 50 mg PO BID #60 tabs 04/19/22 04/22/22 Rx peg 3350-electrolytes 236 240 ml PO Q10M #4,000 mL 04/21/22 04/22/22 Rx gram-22.74 gram-6.74 gram-5.86 gram solution (Golytely) warfarin 5 mg tablet 5 mg PO .COMPLEX 04/21/22 04/22/22 History heparin (porcine) 5,000 unit/mL 5,000 unit UD 04/22/22 04/22/22 History injection solution Patient History Medical History Anemia Atrial fibrillation Dyslipidemia Elevated prostate specific antigen (PSA) Hypertension Metabolic acidosis Multiple myeloma Surgical History H/O stem cell transplant S/P AVR (aortic valve replacement) Family History Mother Alzheimer disease Sister Breast cancer Father Myocardial infarction Denies family history of Ovarian cancer Prostate cancer Colorectal cancer Social History Smoking Status: Never smoker Second Hand Exposure: No; Hx Alcohol Use: No Hx Substance Use: No Preferred Language: Slovenian Communication Ability: Effective Carbon Cleaner Required: No Beliefs That Will Affect Care: None marital status: Current Living Situation: Spouse current occupational status: employed 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 Feels Safe at Home: Yes Childhood Exposure to Second-Hand Smoke: No Dental Care, Regularly: Yes Physical Activity Frequency: 1-2 Times per Week Physical Activity Frequency Comment: walk Seatbelt Use: always Sunscreen Use: Yes Assistive Devices: Cane and Walker Review of Systems Review of Systems: All systems reviewed & are unremarkable except as noted in HPI & below Physical Exam Constitutional: WD/WN, vitals as above Respiratory: normal respiratory effort, lungs clear to auscultation Cardiovascular: RRR, no murmur, no edema Gastrointestinal (Abdomen): normal bowel sounds, soft, nontender, no hepatosplenomegaly Skin: no rashes, warm and dry Psychiatric: Orientation: alert and oriented x 3 Affect: euthymic affect Results & Data ([facility]) Vital Signs (Past 12 Hours) Vital Signs Temp Pulse Pulse Resp BP Pulse Ox O2 Del Method 04/23/22 08:19 67 04/23/22 07:52 36.4 C L 77 18 150/67 H 96 Room Air 04/23/22 03:13 36.5 C 67 16 125/62 98 Room Air PG Care Time/CCT Total # of Minutes Spent Total Time Spent with Patient: Total time spent is greater than 50% in coordination of care (as documented) at patient's floor/unit and/or counseling patient: Coding Level of Care Code 51709 INT INP/OBS CARE 1/40MIN Diagnoses Diarrhea R19.7 Time Spent (min) 45
--- NOTE | 2022-04-23 12:29 | XRay Report ---
XR KUB/Abdomen 1 view CLINICAL HISTORY: evaluate for ileus TECHNIQUE: 1 view of the abdomen was obtained. Comparison: Comparison is made to CT abdomen pelvis 03/22/2022 FINDINGS: Lung bases are unremarkable. Degenerative changes are seen in the visualized skeleton. The bowel gas pattern is nonobstructive. There is a small stool burden and prominent large bowel gas. IMPRESSION: Nonobstructive bowel gas pattern. ACT 112: Negative or not required by law. Electronically signed by: Jacob Moreira M.D. 04/23/2022 12:27 PM
[2022-04-23] MEDS: IRON SUCROSE 300 MG in SODIUM CHLORIDE 0.9% 250 ML IV SCH (12:42)
--- NOTE | 2022-04-23 17:29 | Hospitalist Progress Note ---
Date of Service April 23, 2022 Assessment & Plan (1) Hypokalemia: Plan: ARF on CKD Creatinine again uptrending to 8 Previously thought to be worsened in the setting of hypovolemia, patient has had continued diarrhea and volume contraction Does have a history of LUTS, DDx includes obstructive. No repeat imaging obtained in ER, ultrasound ordered. - Non-anuric. Volume repletion ordered. Is w/ metabolic acidodis. Renal consulted. ?bicarb. - Bladder scan for retention Renally dose medications BMP daily 04/23/22-creatinine 8.9 today Ongoing GI losses decreased Continue to monitor I's and O's closely 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 difficile negative Continue symptomatic treatmentWith Imodium Potassium repletion as needed Coagulopathy INR elevated from 2.6 on prior discharge up to 5.5, no anticoagulant use. Hypokalemia 3.2 No known liver disease, no transaminitis, total bili is normal - Vitamin K x1 given - Prior CT 03/22/2022 reviewed. Unenhanced liver at that time was normal with no ductal dilation or abnormalities noted No leukocytosis, no fever. Does not appear to have a septic coagulopathy at this time DVT prophylaxis: SCDs/heparin, Lovenox contraindicated due to ARF Diet: Renal Code: Full Dispo: Telemetry (2) Acute renal failure: (3) Chronic kidney disease: (4) S/P AVR (aortic valve replacement): (5) Secondary hyperparathyroidism: (6) Acute kidney injury: Admission and Anticipated Discharge Date Admission Date: April 22, 2022 Subjective Patient seen and examined Patient reports that his frequency of loose stools is decreased Physical Exam Physical Exam: Head and ENT no thyroid enlargement trachea midline Cardiovascular S1-S2 are normal no S3 Lungs bilateral air entry fair no wheezing Abdomen soft nondistended positive bowel sounds no rebound tenderness Extremity shows trace edema Neurologically no focal deficits Skin shows no rash no cyanosis Results & Data Results & Data ([facility]) Vital Signs (Past 12 Hours) Vital Signs Temp Pulse Pulse Pulse Resp BP Pulse Ox 04/23/22 17:19 64 04/23/22 15:26 37.3 C 66 19 129/57 L 99 04/23/22 11:58 36.4 C L 72 18 133/61 100 04/23/22 08:19 67 04/23/22 07:52 36.4 C L 77 18 150/67 H 96 O2 Del Method 04/23/22 17:19 04/23/22 15:26 Room Air 04/23/22 11:58 Room Air 04/23/22 08:19 04/23/22 07:52 Room Air Laboratory Results BMP 04/23/22 06:25 Sodium 140 Potassium 3.2 L Chloride 112 H Carbon Dioxide 12 L BUN 89 H Creatinine 8.90 H* D Glucose 91 Calcium 6.5 L Urine 04/23/22 Range/Units 10:01 Urine Color Yellow Urine Appearance Turbid A (Clear) Urine pH 6.0 (4.5-7.5) Ur Specific Balm 1.009 (1.000-1.030) Urine Protein 2+ H (Negative) Urine Glucose (UA) Negative (Negative) PG Care Time/CCT Total # of Minutes Spent Total Time Spent with Patient: Total time spent is greater than 50% in coordination of care (as documented) at patient's floor/unit and/or counseling patient: Coding Level of Care Code 37887 SUB INP/OBS CARE 2/35MIN Diagnoses Hypokalemia E87.6 Acute renal failure N17.9 Chronic kidney disease N18.9 S/P AVR (aortic valve replacement) Z95.2 Secondary hyperparathyroidism N25.81 Acute kidney injury N17.9
[2022-04-23] MEDS: TAMSULOSIN HCL 0.4 MG CAP PO SCH (19:49)
[2022-04-23] MEDS: MIRTAZAPINE TAB 15 MG TAB PO SCH (19:49)
[2022-04-24] MEDS: SODIUM BICARBONATE 8.4% 150 MEQ in WATER, STERILE 1,000 ML IV SCH ×2 (05:14→14:02)
[2022-04-24 07:43] LABS: Hematocrit (blood only) 18.5 % (42.0-52.0); Hemoglobin 6.3 g/dl (14.0-18.0); Mean Corpuscular Hgb Conc 34.1 g/dL (32.0-36.0); Mean Corpuscular Volume 85.3 fL (80.0-100.0); Mean Platelet Volume 12.2 fL (9.4-12.4); Platelet Count 130 K/uL (130-400); RDW Coefficient of Variation 14.6 % (11.5-14.5); RDW Standard Deviation 44.9 fL (36.4-46.3); Red Blood Count 2.17 M/uL (4.70-6.10); White Blood Count 5.41 K/ul (4.8-10.8)
[2022-04-24 07:56] LABS: INR 2.7 (0.9-1.1); Prothrombin Time 27.4 Seconds (9.0-12.0)
[2022-04-24] MEDS: METOPROLOL TARTRATE 50 MG TAB PO SCH ×2 (07:57→19:44)
[2022-04-24] MEDS: PANCREAZE (LIPASE 10,500U) CAP PO SCH ×3 (07:57→16:50)
[2022-04-24] MEDS: IRON SUCROSE 300 MG in SODIUM CHLORIDE 0.9% 250 ML IV SCH (07:57)
[2022-04-24] MEDS: SIMVASTATIN 20 MG TAB PO SCH (07:58)
[2022-04-24] MEDS: CALCITRIOL 0.25 MCG CAPSULE PO SCH (07:58)
[2022-04-24] MEDS: CALCIUM CARBONATE 1,250 MG/5 ML UDC PO SCH ×2 (07:58→19:45)
[2022-04-24 09:33] LABS: BUN Creatinine Ratio 10.7 (10-20); Calcium 6.3 mg/dl (8.5-10.1); Creatinine Clr Calc Pharmacy 9.1 ml/min; Est GFR (African American) 8.1 ml/min; Potassium 2.9 mmol/L (3.5-5.1)
[2022-04-24] MEDS: POTASSIUM CHLORIDE CRTAB 20 MEQ TABCR PO SCH (10:22)
--- NOTE | 2022-04-24 10:25 | Nephrology Progress Note ---
Date of Service April 24, 2022 Assessment & Plan (1) Acute kidney injury: (2) Hypertension: (3) Hypokalemia: (4) Anemia: (5) Metabolic acidosis: Plan 77 yo male with PMH significant for multiple myeloma status post stem cell transplant, hypertension, BPH admitted to the hospital with OMARI With dehydration and repeated episodes of diarrhea. Recently was hospitalized with similar clinical scenario, was discharged home as creatinine was close to 4 and electrolyte was acceptable. But again developed diarrhea and outpatient lab showed Omari with creatinine above 8 with metabolic acidosis and was admitted for further management. Has been on bicarb drip since admission. Renal function has been slowly improving with improvement in electrolyte. Has Chandler catheter and has been having decent urine output with overall net negative. Renal function started to improve, Acidosis improving. --continue Bicarb drip, add KCl 40 mEq with each L. Give extra 40 mEq of potassium chloride now. --Getting blood transfusion now. --dose medications for eGFR less than 10 Will follow Admission and Anticipated Discharge Date Admission Date: April 22, 2022 Kimberly Swenson was seen and examined in his room this morning. Overall he feels poorly but denies shortness of breath, fever or chills. Has Chandler catheter with blood- tinged small amount of urine. Renal function started to improve bicarbonate improving but potassium low at 2.9. Blood pressure acceptable. Review of Systems Review of Systems: Detailed review of system was otherwise unremarkable except mentioned above. Physical Exam Constitutional: WD/WN, vitals as above + ill appearing; no acute distress Neck: normal visual inspection Respiratory: Auscultation: lungs clear to auscultation bilaterally Cardiovascular: RRR, no murmur, no edema Skin: no rashes Neurologic: no focal motor deficits Psychiatric: Orientation: alert and oriented x 3 Results & Data ([facility]) Vital Signs (Past 12 Hours) Vital Signs Temp Pulse Pulse Resp BP Pulse Ox O2 Del Method 04/24/22 08:00 72 04/24/22 08:00 Room Air 04/24/22 07:22 36.6 C 77 17 122/51 L 98 Room Air 04/24/22 03:04 36.9 C 76 18 122/52 L 93 Room Air 04/23/22 23:04 36.9 C 74 16 124/60 96 Room Air PG Care Time/CCT Total # of Minutes Spent Total Time Spent with Patient: Total time spent is greater than 50% in coordination of care (as documented) at patient's floor/unit and/or counseling patient: Coding Level of Care Code 36192 SUB INP/OBS CARE 350MIN Diagnoses Acute kidney injury N17.9 Hypertension I10 Hypokalemia E87.6 Anemia D64.9 Metabolic acidosis E87.20
[2022-04-24] MEDS ORDERED: SODIUM CHLORIDE 0.9% 250 ML IV PRN ×2 (16:35→16:38)
[2022-04-24] MEDS ORDERED: FUROSEMIDE INJ 20 MG/2 ML VIAL IV ONE (16:39)
--- NOTE | 2022-04-24 19:30 | Hospitalist Progress Note ---
Date of Service April 24, 2022 Assessment & Plan (1) Hypokalemia: Plan: ARF on CKD Creatinine again uptrending to 8 Previously thought to be worsened in the setting of hypovolemia, patient has had continued diarrhea and volume contraction Does have a history of LUTS, DDx includes obstructive. No repeat imaging obtained in ER, ultrasound ordered. - Non-anuric. Volume repletion ordered. Is w/ metabolic acidodis. Renal consulted. ?bicarb. - Bladder scan for retention Renally dose medications BMP daily 04/23/22-creatinine 8.9 today Ongoing GI losses decreased Continue to monitor I's and O's closely 04/24-patient continues have hypokalemia of 2.9 which is repleted Patient reports that his diarrhea has improved Hemoglobin has dropped by 1 g to 6.5 Discussed with patient and his along with nephrology input patient will receive packed RBC transfusion this irradiated as he had a prior Stem cell transplant for his myeloma Repeat labs closely and monitor volume status with close monitoring of his I's and O's St. 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 difficile negative Continue symptomatic treatmentWith Imodium Potassium repletion as needed Coagulopathy INR elevated from 2.6 on prior discharge up to 5.5, no anticoagulant use. Hypokalemia 3.2 No known liver disease, no transaminitis, total bili is normal - Vitamin K x1 given - Prior CT 03/22/2022 reviewed. Unenhanced liver at that time was normal with no ductal dilation or abnormalities noted No leukocytosis, no fever. Does not appear to have a septic coagulopathy at this time DVT prophylaxis: SCDs/heparin, Lovenox contraindicated due to ARF Diet: Renal Code: Full Dispo: Telemetry (2) Acute renal failure: (3) Chronic kidney disease: (4) S/P AVR (aortic valve replacement): (5) Secondary hyperparathyroidism: (6) Acute kidney injury: Admission and Anticipated Discharge Date Admission Date: April 22, 2022 Subjective Patient reports his diarrhea has improved Slight improvement in his appetite and his hemoglobin is dropped today and patient received packed RBC irradiated Physical Exam Physical Exam: Head and ENT no thyroid enlargement trachea midline Cardiovascular S1-S2 are normal no S3 Lungs bilateral air entry fair no wheezing Abdomen soft nondistended positive bowel sounds no rebound tenderness Extremity shows trace edema Neurologically no focal deficits Skin shows no rash no cyanosis Results & Data Results & Data ([facility]) Vital Signs (Past 12 Hours) Vital Signs Temp Pulse Pulse Resp BP BP Pulse Ox 04/24/22 18:44 36.7 C 95 H 20 114/61 95 04/24/22 18:42 36.7 C 95 H 18 124/60 96 04/24/22 18:24 36.5 C 102 H 20 128/72 98 04/24/22 15:39 68 04/24/22 15:21 36.6 C 69 16 136/54 L 96 04/24/22 11:10 36.7 C 62 16 125/60 95 04/24/22 08:00 72 04/24/22 08:00 O2 Del Method 04/24/22 18:44 04/24/22 18:42 04/24/22 18:24 04/24/22 15:39 04/24/22 15:21 Room Air 04/24/22 11:10 Room Air 04/24/22 08:00 04/24/22 08:00 Room Air Laboratory Results Short CBC 04/24/22 Range/Units 06:38 WBC 5.41 (4.8-10.8) K/ul Hgb 6.3 L* (14.0-18.0) g/dl Hct 18.5 L* (42.0-52.0) % Plt Count 130 (130-400) K/uL BMP 04/24/22 06:38 Sodium 141 Potassium 2.9 L Chloride 108 H Carbon Dioxide 20 L BUN 74 H Creatinine 6.89 H* D Glucose 102 H Calcium 6.3 L PG Care Time/CCT Total # of Minutes Spent Total Time Spent with Patient: Total time spent is greater than 50% in coordination of care (as documented) at patient's floor/unit and/or counseling patient: Coding Level of Care Code 09416 SUB INP/OBS CARE 2/35MIN Diagnoses Hypokalemia E87.6 Acute renal failure N17.9 Chronic kidney disease N18.9 S/P AVR (aortic valve replacement) Z95.2 Secondary hyperparathyroidism N25.81 Acute kidney injury N17.9
[2022-04-24] MEDS: TAMSULOSIN HCL 0.4 MG CAP PO SCH (19:44)
[2022-04-24] MEDS: MIRTAZAPINE TAB 15 MG TAB PO SCH (19:44)
[2022-04-25] MEDS: SODIUM BICARBONATE 8.4% 150 MEQ in WATER, STERILE 1,000 ML IV SCH ×2 (03:03→08:10)
[2022-04-25] MEDS ORDERED: FUROSEMIDE INJ 20 MG/2 ML VIAL IV ONE (03:05)
[2022-04-25 06:35] LABS: Hematocrit (blood only) 26.1 % (42.0-52.0); Hemoglobin 8.9 g/dl (14.0-18.0); Mean Corpuscular Hemoglobin 30.1 pg (25.0-34.0); Mean Corpuscular Hgb Conc 34.1 g/dL (32.0-36.0); Mean Corpuscular Volume 88.2 fL (80.0-100.0); Platelet Count 117 K/uL (130-400); RDW Coefficient of Variation 14.6 % (11.5-14.5); RDW Standard Deviation 46.7 fL (36.4-46.3); Red Blood Count 2.96 M/uL (4.70-6.10); White Blood Count 6.48 K/ul (4.8-10.8)
[2022-04-25 06:55] LABS: Albumin Level 2.9 gm/dl (3.4-5.0); BUN Creatinine Ratio 11.1 (10-20); Est GFR (African American) 10.2 ml/min; Est GFR (Non-African American) 8.8 ml/min; Phosphorus 5.4 mg/dl (2.5-4.9); Potassium 3.1 mmol/L (3.5-5.1)
[2022-04-25 07:14] LABS: INR 2.4 (0.9-1.1); Prothrombin Time 24.2 Seconds (9.0-12.0)
[2022-04-25] MEDS: IRON SUCROSE 300 MG in SODIUM CHLORIDE 0.9% 250 ML IV SCH (08:10)
[2022-04-25] MEDS: CALCITRIOL 0.25 MCG CAPSULE PO SCH (08:15)
[2022-04-25] MEDS: SIMVASTATIN 20 MG TAB PO SCH (08:15)
[2022-04-25] MEDS: POTASSIUM CHLORIDE CRTAB 20 MEQ TABCR PO SCH (08:15)
[2022-04-25] MEDS: PANCREAZE (LIPASE 10,500U) CAP PO SCH ×3 (08:16→16:46)
[2022-04-25] MEDS: METOPROLOL TARTRATE 50 MG TAB PO SCH ×2 (08:16→21:45)
[2022-04-25] MEDS: CALCIUM CARBONATE 1,250 MG/5 ML UDC PO SCH ×2 (08:16→21:45)
[2022-04-25] MEDS: POTASSIUM CHLORIDE 40 MEQ in SODIUM CHLORIDE 0.9% 1000ML 1,000 ML IV SCH ×2 (09:35→21:17)
--- NOTE | 2022-04-25 10:26 | Nephrology Progress Note ---
Date of Service April 25, 2022 Assessment & Plan (1) Acute kidney injury: (2) Hypertension: (3) Hypokalemia: (4) Anemia: (5) Metabolic acidosis: Plan 77 yo male with PMH significant for multiple myeloma status post stem cell transplant, hypertension, BPH admitted to the hospital with OMARI With dehydration and repeated episodes of diarrhea. Recently was hospitalized with similar clinical scenario, was discharged home as creatinine was close to 4 and electrolyte was acceptable. But again developed diarrhea and outpatient lab showed Omari with creatinine above 8 with metabolic acidosis and was admitted for further management. Has been on bicarb drip since admission. Renal function has been slowly improving with improvement in electrolyte. Has Chandler catheter and has been having decent urine output with overall net negative. Renal function continues to improve, Acidosis resolved. K still low. Hb 8.1 --change IV fluid to NS with KCl @80ml/h --monitor renal function for continued recovery --dose medications for eGFR less than 10 Will follow Admission and Anticipated Discharge Date Admission Date: April 22, 2022 Kimberly Swenson was seen and examined in his room this morning. No overnight events, denies shortness of breath, fever or chills. Has Chandler catheter, urine much clearer, decent volume. Renal function continues to improve. Blood pressure acceptable. Review of Systems Review of Systems: Detailed review of system was otherwise unremarkable except mentioned above. Physical Exam Constitutional: WD/WN, vitals as above + ill appearing; no acute distress Neck: normal visual inspection Respiratory: Auscultation: lungs clear to auscultation bilaterally Cardiovascular: RRR, no murmur, no edema Skin: no rashes Neurologic: no focal motor deficits Psychiatric: Orientation: alert and oriented x 3 Results & Data ([facility]) Vital Signs (Past 12 Hours) Vital Signs Temp Pulse Pulse Resp BP BP Pulse Ox 04/25/22 08:00 75 04/25/22 07:24 36.7 C 76 19 130/61 92 04/25/22 02:00 36.7 C 101 H 14 135/63 96 04/25/22 03:50 36.6 C 81 12 129/68 97 04/25/22 00:55 36.8 C 89 15 124/78 95 04/24/22 23:30 36.7 C 92 H 12 124/71 95 04/25/22 00:00 36.6 C 86 16 127/67 94 04/24/22 22:45 36.7 C 96 H 12 119/68 97 04/24/22 23:00 36.6 C 94 H 20 128/71 95 04/24/22 22:31 36.7 C 94 H 18 133/57 L 96 O2 Del Method 04/25/22 08:00 04/25/22 07:24 Room Air 04/25/22 02:00 Room Air 04/25/22 03:50 Room Air 04/25/22 00:55 04/24/22 23:30 04/25/22 00:00 04/24/22 22:45 04/24/22 23:00 04/24/22 22:31 PG Care Time/CCT Total # of Minutes Spent Total Time Spent with Patient: Total time spent is greater than 50% in coordination of care (as documented) at patient's floor/unit and/or counseling patient: Coding Level of Care Code 03579 SUB INP/OBS CARE 3/50MIN Diagnoses Acute kidney injury N17.9 Hypertension I10 Hypokalemia E87.6 Anemia D64.9 Metabolic acidosis E87.20
[2022-04-25] MEDS ORDERED: Nursing to Pharmacy Communication SCH (14:30)
--- NOTE | 2022-04-25 17:38 | Hospitalist Progress Note ---
Date of Service April 25, 2022 Assessment & Plan (1) Hypokalemia: Plan: ARF on CKD Creatinine again uptrending to 8 Previously thought to be worsened in the setting of hypovolemia, patient has had continued diarrhea and volume contraction Does have a history of LUTS, DDx includes obstructive. No repeat imaging obtained in ER, ultrasound ordered. - Non-anuric. Volume repletion ordered. Is w/ metabolic acidodis. Renal consulted. ?bicarb. - Bladder scan for retention Renally dose medications BMP daily 04/23/22-creatinine 8.9 today Ongoing GI losses decreased Continue to monitor I's and O's closely 04/24-patient continues have hypokalemia of 2.9 which is repleted Patient reports that his diarrhea has improved Hemoglobin has dropped by 1 g to 6.5 Discussed with patient and his along with nephrology input patient will receive packed RBC transfusion this irradiated as he had a prior Stem cell transplant for his myeloma Repeat labs closely and monitor volume status with close monitoring of his I's and O's 04/25- Potassium stores being repleted, Creatinine 5.6 today showing progressive improvement at the peak of 8.9 Patient received 2 units of packed RBC yesterday Hemodynamics stable and improved Patient received IV fluids with K supplementation Monitor I's and O's closely, acidosis improved St. 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 difficile negative Continue symptomatic treatmentWith Imodium Potassium repletion as needed Coagulopathy INR elevated from 2.6 on prior discharge up to 5.5, no anticoagulant use. Hypokalemia 3.2 No known liver disease, no transaminitis, total bili is normal - Vitamin K x1 given - Prior CT 03/22/2022 reviewed. Unenhanced liver at that time was normal with no ductal dilation or abnormalities noted No leukocytosis, no fever. Does not appear to have a septic coagulopathy at this time DVT prophylaxis: SCDs/heparin, Lovenox contraindicated due to ARF Diet: Renal Code: Full Dispo: Telemetry (2) Acute renal failure: (3) Chronic kidney disease: (4) S/P AVR (aortic valve replacement): (5) Secondary hyperparathyroidism: (6) Acute kidney injury: Admission and Anticipated Discharge Date Admission Date: April 22, 2022 Subjective Patient reports decreased diarrhea P.o. intake is improved, Chandler catheter indicates increased urine output less concentrated . Physical Exam Physical Exam: Head and ENT no thyroid enlargement trachea midline Cardiovascular S1-S2 are normal no S3 Lungs bilateral air entry fair no wheezing Abdomen soft nondistended positive bowel sounds no rebound tenderness Extremity shows trace edema Neurologically no focal deficits Skin shows no rash no cyanosis Results & Data Results & Data ([facility]) Vital Signs (Past 12 Hours) Vital Signs Temp Pulse Pulse Resp BP Pulse Ox O2 Del Method 04/25/22 15:17 36.6 C 67 16 159/69 H 93 Room Air 04/25/22 15:05 70 04/25/22 11:14 36.8 C 63 17 143/52 H 93 Room Air 04/25/22 08:00 75 04/25/22 07:24 36.7 C 76 19 130/61 92 Room Air Laboratory Results Short CBC 04/25/22 Range/Units 06:05 WBC 6.48 (4.8-10.8) K/ul Hgb 8.9 L (14.0-18.0) g/dl Hct 26.1 L (42.0-52.0) % Plt Count 117 L (130-400) K/uL BMP 04/25/22 06:05 Sodium 142 Potassium 3.1 L Chloride 106 Carbon Dioxide 27 BUN 63 H Creatinine 5.69 H* D Glucose 171 H Calcium 7.0 L Liver Function 04/25/22 Range/Units 06:05 Albumin 2.9 L (3.4-5.0) gm/dl PG Care Time/CCT Total # of Minutes Spent Total Time Spent with Patient: Total time spent is greater than 50% in coordination of care (as documented) at patient's floor/unit and/or counseling patient: Coding Level of Care Code 53564 SUB INP/OBS CARE 2/35MIN Diagnoses Hypokalemia E87.6 Acute renal failure N17.9 Chronic kidney disease N18.9 S/P AVR (aortic valve replacement) Z95.2 Secondary hyperparathyroidism N25.81 Acute kidney injury N17.9
[2022-04-25] MEDS: TAMSULOSIN HCL 0.4 MG CAP PO SCH (21:45)
[2022-04-25] MEDS: MIRTAZAPINE TAB 15 MG TAB PO SCH (21:45)
[2022-04-26 07:17] LABS: Hematocrit (blood only) 29.1 % (42.0-52.0); Hemoglobin 9.5 g/dl (14.0-18.0); Mean Corpuscular Hemoglobin 29.5 pg (25.0-34.0); Mean Corpuscular Hgb Conc 32.6 g/dL (32.0-36.0); Mean Corpuscular Volume 90.4 fL (80.0-100.0); Mean Platelet Volume 11.7 fL (9.4-12.4); Platelet Count 132 K/uL (130-400); RDW Coefficient of Variation 14.6 % (11.5-14.5); Red Blood Count 3.22 M/uL (4.70-6.10); White Blood Count 7.03 K/ul (4.8-10.8)
[2022-04-26 07:43] LABS: BUN Creatinine Ratio 11.3 (10-20); Calcium 7.8 mg/dl (8.5-10.1); Creatinine Clr Calc Pharmacy 12.4 ml/min; Est GFR (African American) 11.7 ml/min; Est GFR (Non-African American) 10.1 ml/min; Phosphorus 4.2 mg/dl (2.5-4.9); Potassium 4.1 mmol/L (3.5-5.1)
[2022-04-26 07:46] LABS: INR 1.8 (0.9-1.1); Prothrombin Time 18.1 Seconds (9.0-12.0)
[2022-04-26] MEDS: IRON SUCROSE 300 MG in SODIUM CHLORIDE 0.9% 250 ML IV SCH (08:42)
[2022-04-26] MEDS: POTASSIUM CHLORIDE 40 MEQ in SODIUM CHLORIDE 0.9% 1000ML 1,000 ML IV SCH (08:42)
[2022-04-26] MEDS: SIMVASTATIN 20 MG TAB PO SCH (08:43)
[2022-04-26] MEDS: METOPROLOL TARTRATE 50 MG TAB PO SCH ×2 (08:43→21:00)
[2022-04-26] MEDS: CALCIUM CARBONATE 1,250 MG/5 ML UDC PO SCH (08:43)
[2022-04-26] MEDS: PANCREAZE (LIPASE 10,500U) CAP PO SCH ×3 (08:43→16:41)
[2022-04-26] MEDS: CALCITRIOL 0.25 MCG CAPSULE PO SCH (08:43)
[2022-04-26] MEDS: POTASSIUM CHLORIDE PWD 20 MEQ PACK PO SCH (09:30)
--- NOTE | 2022-04-26 10:41 | Nephrology Progress Note ---
Date of Service April 26, 2022 Assessment & Plan (1) Acute kidney injury: (2) Hypertension: (3) Hypokalemia: (4) Anemia: (5) Metabolic acidosis: Plan 77 yo male with PMH significant for multiple myeloma status post stem cell transplant, hypertension, BPH admitted to the hospital with OMARI With dehydration and repeated episodes of diarrhea. Recently was hospitalized with similar clinical scenario, was discharged home as creatinine was close to 4 and electrolyte was acceptable. But again developed diarrhea and outpatient lab showed Omari with creatinine above 8 with metabolic acidosis and was admitted for further management. Has been on bicarb drip since admission. Renal function has been slowly improving with improvement in electrolyte. Has Chandler catheter and has been having decent urine output with overall net negative. Renal function continues to improve, Acidosis resolved. --discontinue IV fluid , encouraged to maintain po intake --monitor renal function for continued recovery --dose medications for eGFR less than 10 Will follow Admission and Anticipated Discharge Date Admission Date: April 22, 2022 Kimberly Swenson was seen and examined in his room this morning. No overnight events, denies shortness of breath, fever or chills. Diarrhea improving. Renal function continues to improve. Blood pressure acceptable. Review of Systems Review of Systems: Detailed review of system was otherwise unremarkable except mentioned above. Physical Exam Constitutional: WD/WN, vitals as above + ill appearing; no acute distress Neck: normal visual inspection Respiratory: Auscultation: lungs clear to auscultation bilaterally Cardiovascular: RRR, no murmur, no edema Skin: no rashes Neurologic: no focal motor deficits Psychiatric: Orientation: alert and oriented x 3 Results & Data ([facility]) Vital Signs (Past 12 Hours) Vital Signs Temp Pulse Pulse Resp BP Pulse Ox O2 Del Method 04/26/22 07:27 73 04/26/22 07:21 36.9 C 76 15 159/54 H 91 Room Air 04/26/22 04:02 36.8 C 76 18 159/69 H 93 Room Air 04/26/22 00:24 36.9 C 79 16 160/79 H 91 Room Air 04/25/22 22:51 82 PG Care Time/CCT Total # of Minutes Spent Total Time Spent with Patient: Total time spent is greater than 50% in coordination of care (as documented) at patient's floor/unit and/or counseling patient: Coding Level of Care Code 69747 SUB INP/OBS CARE 350MIN Diagnoses Acute kidney injury N17.9 Hypertension I10 Hypokalemia E87.6 Anemia D64.9 Metabolic acidosis E87.20
[2022-04-26] MEDS ORDERED: WARFARIN SOD 3 MG TAB PO SCH (16:00)
--- NOTE | 2022-04-26 16:08 | Hospitalist Progress Note ---
Date of Service April 26, 2022 Assessment & Plan (1) Hypokalemia: Plan: Potassium corrected to 4.1. Will monitor serial lab studies. (2) Acute renal failure: Plan: Creatinine 8.9 on admission. Now down to 5.0 with IV fluids. He is now off the IV fluids. Will monitor intake and output. Serial labs. Appreciate nephrology consultation and recommendations. (3) Chronic kidney disease: Plan: Acute exacerbation. Monitor intake and output. Serial labs (4) S/P AVR (aortic valve replacement): Plan: INR is down to 1.8. Coumadin has been restarted at a lower than usual dose. We will monitor serial INR levels (5) Secondary hyperparathyroidism: Plan: Stable. Continue current medical management (6) Acute kidney injury: Plan: Creatinine improved from 8.9 on admission down to 5.0. Will monitor intake and output. Serial labs. Appreciate nephrology consultation and recommendations. Plan Anticipate eventual discharge to home later this week Admission and Anticipated Discharge Date Admission Date: April 22, 2022 Subjective Alert and oriented. No acute distress. Bicarbonate drip was discontinued yesterday, April 25. Creatinine continues to improve down to 5.0. Hemoglobin stable at 9.5. Potassium corrected to 4.1. Anion gap has normalized. INR is down to 1.8. Warfarin has been restarted at a lower dose. We will recheck a stool [employer] and C. difficile toxin assay. OT and PT assessments requested Review of Systems Review of Systems: Constitutional-no fever or chills ENT-no blurred vision, no double vision, no epistaxis, no sore throat Respiratory-no cough, no wheezing, no shortness of breath Cardiac-no palpitations, no chest pain, no syncope GI-no nausea, vomiting, melena, hematochezia. Intermittent watery diarrhea -no urinary retention, no urinary incontinence, no dysuria, no hematuria Musculoskeletal-no joint pain, no muscle tenderness Skin-no bruising, no rashes, no pruritus Neuro-no isolated weakness, no paresthesia, no weakness Psych-no depression, no anxiety Physical Exam Physical Exam: General-alert and oriented x3, no fevers, no chills HEENT-head atraumatic and normocephalic, pupils equal and reactive to light, extraocular muscles intact Neck-no lymphadenopathy or thyromegaly, trachea midline Chest-clear to auscultation percussion. No rales wheezing or rhonchi Cardiac-regular rate and rhythm, normal S1 and S2 Abdomen-normal bowel sounds, nontender, no hepatosplenomegaly Extremities-no cyanosis, clubbing, or edema Neuro-cranial nerves II through XII intact, motor and sensory function within normal limits, strength symmetrical, no focal deficits Psych-normal affect, normal mood Results & Data Results & Data ([facility]) Vital Signs (Past 12 Hours) Vital Signs Temp Pulse Pulse Resp BP Pulse Ox O2 Del Method 04/26/22 15:53 37.2 C 86 17 171/84 H 90 Room Air 04/26/22 15:42 85 04/26/22 11:23 36.8 C 75 25 H 146/74 H 90 Room Air 04/26/22 07:27 73 04/26/22 07:21 36.9 C 76 15 159/54 H 91 Room Air Laboratory Results 04/26/22 06:49 04/26/22 06:49 PG Care Time/CCT Total # of Minutes Spent Total Time Spent with Patient: Total time spent is greater than 50% in coordination of care (as documented) at patient's floor/unit and/or counseling patient: Coding Level of Care Code 51797 SUB INP/OBS CARE 3/50MIN Diagnoses Hypokalemia E87.6 Acute renal failure N17.9 Chronic kidney disease N18.9 S/P AVR (aortic valve replacement) Z95.2 Secondary hyperparathyroidism N25.81 Acute kidney injury N17.9
[2022-04-26] MEDS: MIRTAZAPINE TAB 15 MG TAB PO SCH (21:00)
[2022-04-26] MEDS: TAMSULOSIN HCL 0.4 MG CAP PO SCH (21:00)
[2022-04-27 06:45] LABS: Hematocrit (blood only) 28.8 % (42.0-52.0); Hemoglobin 9.3 g/dl (14.0-18.0); Mean Corpuscular Hemoglobin 29.5 pg (25.0-34.0); Mean Corpuscular Hgb Conc 32.3 g/dL (32.0-36.0); Mean Corpuscular Volume 91.4 fL (80.0-100.0); Mean Platelet Volume 11.9 fL (9.4-12.4); Platelet Count 134 K/uL (130-400); RDW Coefficient of Variation 14.7 % (11.5-14.5); RDW Standard Deviation 48.6 fL (36.4-46.3); Red Blood Count 3.15 M/uL (4.70-6.10); White Blood Count 7.27 K/ul (4.8-10.8)
[2022-04-27 07:04] LABS: Albumin Level 2.9 gm/dl (3.4-5.0); BUN Creatinine Ratio 11.1 (10-20); Creatinine Clr Calc Pharmacy 13.5 ml/min; Est GFR (African American) 12.9 ml/min; Est GFR (Non-African American) 11.1 ml/min; Phosphorus 3.7 mg/dl (2.5-4.9); Potassium 4.5 mmol/L (3.5-5.1)
[2022-04-27 07:22] LABS: Prothrombin Time 20.7 Seconds (9.0-12.0)
[2022-04-27] MEDS: METOPROLOL TARTRATE 50 MG TAB PO SCH ×2 (08:09→21:14)
[2022-04-27] MEDS: SIMVASTATIN 20 MG TAB PO SCH (08:09)
[2022-04-27] MEDS: PANCREAZE (LIPASE 10,500U) CAP PO SCH ×3 (08:09→17:06)
[2022-04-27] MEDS: CALCITRIOL 0.25 MCG CAPSULE PO SCH (08:09)
[2022-04-27] MEDS: HEPARIN 100 UNIT/ML 5ML FLUSH FLUSH PRN (08:10)
[2022-04-27] MEDS: POTASSIUM CHLORIDE PWD 20 MEQ PACK PO SCH (08:10)
--- NOTE | 2022-04-27 10:01 | Nephrology Progress Note ---
Date of Service April 27, 2022 Assessment & Plan (1) Acute kidney injury: (2) Hypertension: (3) Hypokalemia: (4) Anemia: (5) Metabolic acidosis: Plan 77 yo male with PMH significant for multiple myeloma status post stem cell transplant, hypertension, BPH admitted to the hospital with OMARI With dehydration and repeated episodes of diarrhea. Recently was hospitalized with similar clinical scenario, was discharged home as creatinine was close to 4 and electrolyte was acceptable. But again developed diarrhea and outpatient lab showed Omari with creatinine above 8 with metabolic acidosis and was admitted for further management. Has been on bicarb drip since admission. Renal function has been slowly improving with improvement in electrolyte. Has Chandler catheter and has been having decent urine output with overall net negative. Renal function continues to improve, Acidosis resolved. --encouraged to maintain po intake and try to keep in positive balance with ongoing diarrhea. --monitor renal function for continued recovery --dose medications for eGFR less than 10 Will follow Admission and Anticipated Discharge Date Admission Date: April 22, 2022 Kimberly Swenson was seen and examined in his room this morning. No overnight events, denies shortness of breath, fever or chills. Diarrhea the ongoing with 2-3 loose bowel movement daily but there has been slow improvement. Renal function continues to improve. Blood pressure acceptable. Review of Systems Review of Systems: Detailed review of system was otherwise unremarkable except mentioned above. Physical Exam Constitutional: WD/WN, vitals as above + ill appearing; no acute distress Neck: normal visual inspection Respiratory: Auscultation: lungs clear to auscultation bilaterally Cardiovascular: RRR, no murmur, no edema Skin: no rashes Neurologic: no focal motor deficits Psychiatric: Orientation: alert and oriented x 3 Results & Data ([facility]) Vital Signs (Past 12 Hours) Vital Signs Temp Pulse Pulse Resp BP Pulse Ox O2 Del Method 04/27/22 09:18 78 04/27/22 07:56 36.6 C 75 19 155/69 H 90 Room Air 04/27/22 07:44 79 04/27/22 03:00 36.7 C 78 18 147/72 H 90 Room Air 04/26/22 23:35 87 04/26/22 23:12 36.8 C 81 20 159/77 H 90 Room Air PG Care Time/CCT Total # of Minutes Spent Total Time Spent with Patient: Total time spent is greater than 50% in coordination of care (as documented) at patient's floor/unit and/or counseling patient: Coding Level of Care Code 94925 SUB INP/OBS CARE 350MIN Diagnoses Acute kidney injury N17.9 Hypertension I10 Hypokalemia E87.6 Anemia D64.9 Metabolic acidosis E87.20
--- NOTE | 2022-04-27 15:27 | Hospitalist Progress Note ---
Date of Service April 27, 2022 Assessment & Plan (1) Hypokalemia: Plan: Potassium corrected. Continue supplementation. Serial labs. (2) Acute renal failure: Plan: Creatinine 8.9 on admission. Now trending downward. Appreciate nephrology consultation and recommendations. IV fluids have been discontinued. Will monitor intake and output. Serial labs. (3) Chronic kidney disease: Plan: Acute exacerbation. Multiple myeloma is probably contributing. Monitor intake and output. Serial labs (4) S/P AVR (aortic valve replacement): Plan: INR is 2.0 today, April 27. Coumadin has been restarted. Serial INR levels (5) Secondary hyperparathyroidism: Plan: Stable. Continue current medical management (6) Acute kidney injury: Plan: Creatinine improved from 8.9 on admission down to 4.6 now. Unsure of baseline considering underlying diagnosis of multiple myeloma. Monitor intake and output. Serial labs. Appreciate nephrology consultation and recommendations. (7) Shortness of breath: (8) Coumadin toxicity: Plan: Now corrected. INR is 2.0 today, April 27. Coumadin has been restarted. Will monitor daily INR Plan To be determined. OT and PT assessments requested. Admission and Anticipated Discharge Date Admission Date: April 22, 2022 Subjective Alert and oriented. No complaints. Lengthy discussion by phone with his . His and son have noticed some shortness of breath while talking. He may be fluid overloaded. He is not hypoxic at rest however. Portable chest x-ray is pending. He has seen gastroenterology in the past due to the protracted watery diarrhea. GI consultation pending. C. difficile toxin assay is negative. INR is 2.0 today. Coumadin has been restarted. Creatinine continues to improve down to 4.6. Some of the renal dysfunction is probably related to the multiple myeloma. Hemoglobin remains stable at 9.3. Review of Systems Review of Systems: Constitutional-no fever or chills ENT-no blurred vision, no double vision, no epistaxis, no sore throat Respiratory-no cough, no wheezing, no shortness of breath at rest Cardiac-no palpitations, no chest pain, no syncope GI-no nausea, vomiting, melena, hematochezia. Persistent watery diarrhea is chronic according to his -no urinary retention, no urinary incontinence, no dysuria, no hematuria Musculoskeletal-no joint pain, no muscle tenderness Skin-no bruising, no rashes, no pruritus Neuro-no isolated weakness, no paresthesia, no weakness Psych-no depression, no anxiety Physical Exam Physical Exam: General-alert and oriented x3, no fevers, no chills HEENT-head atraumatic and normocephalic, pupils equal and reactive to light, extraocular muscles intact Neck-no lymphadenopathy or thyromegaly, trachea midline Chest-clear to auscultation percussion. No rales wheezing or rhonchi Cardiac-regular rate and rhythm, normal S1 and S2 Abdomen-normal bowel sounds, nontender, no hepatosplenomegaly Extremities-no cyanosis, clubbing, or edema Neuro-cranial nerves II through XII intact, motor and sensory function within normal limits, strength symmetrical, no focal deficits Psych-normal affect, normal mood Results & Data Results & Data ([facility]) Vital Signs (Past 12 Hours) Vital Signs Temp Pulse Pulse Resp BP Pulse Ox O2 Del Method 04/27/22 10:51 36.7 C 75 19 151/78 H 95 Room Air 04/27/22 09:18 78 04/27/22 07:56 36.6 C 75 19 155/69 H 90 Room Air 04/27/22 07:44 79 Laboratory Results 04/27/22 06:14 04/27/22 06:14 PG Care Time/CCT Total # of Minutes Spent Total Time Spent with Patient: Total time spent is greater than 50% in coordination of care (as documented) at patient's floor/unit and/or counseling patient: Coding Level of Care Code 72994 SUB INP/OBS CARE 3/50MIN Diagnoses Hypokalemia E87.6 Acute renal failure N17.9 Chronic kidney disease N18.9 S/P AVR (aortic valve replacement) Z95.2 Secondary hyperparathyroidism N25.81 Acute kidney injury N17.9 Shortness of breath R06.02 Coumadin toxicity T45.511A
[2022-04-27] MEDS: WARFARIN SOD 2.5 MG TAB PO SCH (15:33)
--- NOTE | 2022-04-27 15:34 | XRay Report ---
XR chest 1V portable HISTORY: 77 years-old Male SOB acute shortness of breath COMPARISON: 03/22/2022 TECHNIQUE: Upright AP view of the chest FINDINGS: Cardiac silhouette is enlarged. Prior median sternotomy. Right IJ Nvezwd-f-Awlx catheter is noted wit h distal tip in the expected location of the superior cavoatrial junction. No pneumothorax. Small ple ural effusions with mild bibasilar consolidation. Pulmonary vascular congestion with mild interstitia l coarsening. Degenerative changes of the shoulders and spine. IMPRESSION: 1. Cardiomegaly with mild pulmonary edema. 2. Small pleural effusions with bibasilar consolidation suggestive of pneumonia versus atelectasis. ACT 112: Negative or not required by law. The above report was generated using voice recognition software. It may contain grammatical, syntax o r spelling errors. Electronically signed by: Archie Moore M.D. 04/27/2022 3:32 PM
[2022-04-27] MEDS ORDERED: WARFARIN SOD 5 MG TAB PO SCH (16:00)
[2022-04-27] MEDS ORDERED: FUROSEMIDE 40 MG/4 ML VIAL IV STA (16:30)
[2022-04-27] MEDS: MIRTAZAPINE TAB 15 MG TAB PO SCH (21:14)
[2022-04-27] MEDS: TAMSULOSIN HCL 0.4 MG CAP PO SCH (21:14)
[2022-04-28 06:37] LABS: Hematocrit (blood only) 29.5 % (42.0-52.0); Hemoglobin 9.6 g/dl (14.0-18.0); Mean Corpuscular Hemoglobin 29.7 pg (25.0-34.0); Mean Corpuscular Hgb Conc 32.5 g/dL (32.0-36.0); Mean Corpuscular Volume 91.3 fL (80.0-100.0); Mean Platelet Volume 11.4 fL (9.4-12.4); Platelet Count 136 K/uL (130-400); RDW Coefficient of Variation 14.6 % (11.5-14.5); RDW Standard Deviation 47.8 fL (36.4-46.3); Red Blood Count 3.23 M/uL (4.70-6.10); White Blood Count 6.09 K/ul (4.8-10.8)
[2022-04-28 06:58] LABS: Albumin Level 2.9 gm/dl (3.4-5.0); BUN Creatinine Ratio 11.8 (10-20); Calcium 8.2 mg/dl (8.5-10.1); Creatinine Clr Calc Pharmacy 13.8 ml/min; Est GFR (African American) 13.3 ml/min; Est GFR (Non-African American) 11.5 ml/min; Phosphorus 3.8 mg/dl (2.5-4.9)
[2022-04-28 07:20] LABS: INR 2.7 (0.9-1.1)
[2022-04-28] MEDS: CALCITRIOL 0.25 MCG CAPSULE PO SCH (08:56)
[2022-04-28] MEDS: SIMVASTATIN 20 MG TAB PO SCH (08:56)
[2022-04-28] MEDS: POTASSIUM CHLORIDE PWD 20 MEQ PACK PO SCH ×2 (08:57→11:28)
[2022-04-28] MEDS: METOPROLOL TARTRATE 50 MG TAB PO SCH ×2 (08:57→19:36)
--- NOTE | 2022-04-28 09:24 | Gastroenterology Progress Note ---
Date of Service April 28, 2022 Assessment & Plan (1) Diarrhea: Plan: I discussed case with Dr. Wilde who helped advise on plan. - I discussed with the patient about a colonoscopy to further evaluate the diarrhea and the patient refuses any endoscopic evaluation. He feels he is too high risk to proceed. we did discuss that by not performing testing that causes for diarrhea such as a microscopic colitis or other abnormalities can be missed. he voiced understanding of this but still does not wish to have a colonoscopy. - He has not been getting imodium since he has been inpatient. He tells me he was using it once daily at home and it was controlling the diarrhea. He would like to start with a retrial of this. I will change from PRN to a scheduled dose of 2mg once daily since this was helpful as an outpatient. Admission and Anticipated Discharge Date Admission Date: April 22, 2022 Subjective GI were called back to see patient. He has had continued diarrhea of 2-3 bowel movements daily that are loose. no bleeding or melena. He tells me that at home imodium was working to control this but he has not been getting this as inpatient. he denies any nausea, vomiting, heartburn, dysphagia, abdominal pain. I also spoke with nephrology (Dr. Wheeler) and she had said from a nephrology standpoint he would be okay to tolerate colonoscopy prep with golytely since his renal function has improved. She feels he may benefit from colonoscopy or treatment for diarrhea. Physical Exam Constitutional: WD/WN, vitals as above Respiratory: normal respiratory effort, lungs clear to auscultation Cardiovascular: RRR, no murmur, no edema Gastrointestinal (Abdomen): normal bowel sounds, soft, nontender, no hepatosplenomegaly Skin: no rashes, warm and dry Psychiatric: Orientation: alert and oriented x 3 Affect: euthymic affect Results & Data Results & Data ([facility]) Vital Signs (Past 12 Hours) Vital Signs Temp Pulse Resp BP Pulse Ox O2 Del Method 04/28/22 08:14 36.8 C 101 H 18 133/76 94 Room Air 04/28/22 02:44 36.8 C 104 H 18 128/84 93 Room Air 04/27/22 22:19 36.5 C 106 H 18 137/89 93 Room Air PG Care Time/CCT Total # of Minutes Spent Total Time Spent with Patient: Total time spent is greater than 50% in coordination of care (as documented) at patient's floor/unit and/or counseling patient: Coding Level of Care Code 38068 SUB INP/OBS CARE 2/35MIN Diagnoses Diarrhea R19.7 Time Spent (min) 35
[2022-04-28] MEDS: LOPERAMIDE HCL 2 MG CAP PO SCH (09:35)
[2022-04-28] MEDS: PANCREAZE (LIPASE 10,500U) CAP PO SCH ×3 (09:59→16:02)
--- NOTE | 2022-04-28 10:18 | Nephrology Progress Note ---
Date of Service April 28, 2022 Assessment & Plan (1) Acute kidney injury: (2) Hypertension: (3) Hypokalemia: (4) Anemia: (5) Metabolic acidosis: Plan 77 yo male with PMH significant for multiple myeloma status post stem cell transplant, hypertension, BPH admitted to the hospital with OMARI With dehydration and repeated episodes of diarrhea. Recently was hospitalized with similar clinical scenario, was discharged home as creatinine was close to 4 and electrolyte was acceptable. But again developed diarrhea and outpatient lab showed Omari with creatinine above 8 with metabolic acidosis and was admitted for further management. Has been on bicarb drip since admission. Renal function has been slowly improving with improvement in electrolyte. Has Chandler catheter and has been having decent urine output with overall net negative. Renal function has been relatively stable last 2 days. --encouraged to maintain po intake and try to keep in positive balance with ongoing diarrhea. Unclear whether there will be any further improvement in renal function with repeated dense ATN. --if colonoscopy is considered, suggest starting on NS, other option would be to treat empirically for on going diarrhea if there is high suspicion of colitis. --monitor renal function for continued recovery --dose medications for eGFR less than 10 Will follow Admission and Anticipated Discharge Date Admission Date: April 22, 2022 Kimberly Swenson was seen and examined in his room this morning. No overnight events, denies shortness of breath, fever or chills. Diarrhea ongoing with 2-3 loose bowel movement daily. Renal function has improved but seems to have plateaued over last 2 days. Decent po intake, no SOB but I's and O's shows >2 L negative , may be inaccurate. Blood pressure acceptable. He wss noted to be SOB yesterday and had 1 dose of Lasix. Review of Systems Review of Systems: Detailed review of system was otherwise unremarkable except mentioned above. Physical Exam Constitutional: WD/WN, vitals as above no acute distress Neck: normal visual inspection Respiratory: Auscultation: lungs clear to auscultation bilaterally Cardiovascular: Rate/Rhythm: regular rate and regular rhythm Extremities: + edema (trace b/l LE edema) Skin: no rashes Neurologic: no focal motor deficits Psychiatric: Orientation: alert and oriented x 3 Results & Data ([facility]) Vital Signs (Past 12 Hours) Vital Signs Temp Pulse Resp BP Pulse Ox O2 Del Method 04/28/22 08:14 36.8 C 101 H 18 133/76 94 Room Air 04/28/22 02:44 36.8 C 104 H 18 128/84 93 Room Air 04/27/22 22:19 36.5 C 106 H 18 137/89 93 Room Air PG Care Time/CCT Total # of Minutes Spent Total Time Spent with Patient: Total time spent is greater than 50% in coordination of care (as documented) at patient's floor/unit and/or counseling patient: Coding Level of Care Code 98613 SUB INP/OBS CARE 3/50MIN Diagnoses Acute kidney injury N17.9 Hypertension I10 Hypokalemia E87.6 Anemia D64.9 Metabolic acidosis E87.20
[2022-04-28] MEDS: HEPARIN 100 UNIT/ML 5ML FLUSH FLUSH PRN (11:46)
[2022-04-28] MEDS ORDERED: FUROSEMIDE 40 MG/4 ML VIAL IV ONE (11:56)
--- NOTE | 2022-04-28 13:58 | XCELERA ---
[id number]
--- NOTE | 2022-04-28 15:46 | Hospitalist Progress Note ---
Date of Service April 28, 2022 Assessment & Plan (1) Hypokalemia: Plan: Potassium corrected. Continue supplementation. Serial labs. (2) Acute renal failure: Plan: Creatinine 8.9 on admission. Improved and stable. He has tolerated Lasix diuresis well. Continue to monitor intake and output and serial labs. Appreciate nephrology consultation and recommendations. IV fluids have been discontinued. (3) Chronic kidney disease: Plan: Acute exacerbation. Multiple myeloma is probably contributing. Monitor intake and output. Serial labs (4) S/P AVR (aortic valve replacement): Plan: INR is 2.7 todayApril 28. Continue Coumadin therapy. Daily INR (5) Secondary hyperparathyroidism: Plan: Stable. Continue current medical management (6) Acute kidney injury: Plan: Acute on chronic kidney disease, stage V. Creatinine improved from 8.9 on admission down to 4.5 now. Unsure of baseline considering underlying diagnosis of multiple myeloma. Monitor intake and output. Serial labs. Appreciate nephrology consultation and recommendations. (7) Shortness of breath: Plan: Due to congestive heart failure. Improving with diuresis. (8) Coumadin toxicity: Plan: Now corrected. INR is 2.7 todayApril 28. Coumadin has been restarted. Will monitor daily INR Plan Hopeful discharge to home tomorrow, April 29 . He refuses to consider SNF placement Admission and Anticipated Discharge Date Admission Date: April 22, 2022 Subjective Alert and oriented. He looks better today. Brisk diuresis with IV Lasix. Fo rtunately, the creatinine has remained stable. Cardiac echo reveals severe left ventricular systolic dysfunction. He is now on room air. We will repeat chest x-ray tomorrow. Intravenous Lasix again today, April 28. He is not sure if he would want to pursue hemodialysis if it reached that point. He is ambulating fairly well. Hopefully he can go home tomorrow, April 29. I tried to call his today by phone but there was no answer. INR today is 2.7, April 28. Gastroenterology consultation noted. The patient has refused colonoscopy evaluation. Review of Systems Review of Systems: Constitutional-no fever or chills ENT-no blurred vision, no double vision, no epistaxis, no sore throat Respiratory-no cough, no wheezing, no shortness of breath at rest Cardiac-no palpitations, no chest pain, no syncope GI-no nausea, vomiting, melena, hematochezia. Persistent watery diarrhea is chronic according to his -no urinary retention, no urinary incontinence, no dysuria, no hematuria Musculoskeletal-no joint pain, no muscle tenderness Skin-no bruising, no rashes, no pruritus Neuro-no isolated weakness, no paresthesia, no weakness Psych-no depression, no anxiety Physical Exam Physical Exam: General-alert and oriented x3, no fevers, no chills HEENT-head atraumatic and normocephalic, pupils equal and reactive to light, extraocular muscles intact Neck-no lymphadenopathy or thyromegaly, trachea midline Chest-clear to auscultation percussion. No rales wheezing or rhonchi Cardiac-regular rate and rhythm, normal S1 and S2 Abdomen-normal bowel sounds, nontender, no hepatosplenomegaly Extremities-no cyanosis, clubbing, or edema Neuro-cranial nerves II through XII intact, motor and sensory function within normal limits, strength symmetrical, no focal deficits Psych-normal affect, normal mood Results & Data Results & Data ([facility]) Vital Signs (Past 12 Hours) Vital Signs Temp Pulse Resp BP Pulse Ox O2 Del Method 04/28/22 15:13 36.5 C 78 18 164/76 H 96 Room Air 04/28/22 12:37 36.6 C 72 18 151/86 H 97 Room Air 04/28/22 08:14 36.8 C 101 H 18 133/76 94 Room Air Laboratory Results 04/28/22 06:08 04/28/22 06:08 PG Care Time/CCT Total # of Minutes Spent Total Time Spent with Patient: Total time spent is greater than 50% in coordination of care (as documented) at patient's floor/unit and/or counseling patient: Coding Level of Care Code 36445 SUB INP/OBS CARE 3/50MIN Diagnoses Hypokalemia E87.6 Acute renal failure N17.9 Chronic kidney disease N18.9 S/P AVR (aortic valve replacement) Z95.2 Secondary hyperparathyroidism N25.81 Acute kidney injury N17.9 Shortness of breath R06.02 Coumadin toxicity T45.511A
[2022-04-28] MEDS: WARFARIN SOD 2.5 MG TAB PO SCH (16:02)
[2022-04-28] MEDS: MIRTAZAPINE TAB 15 MG TAB PO SCH (19:37)
[2022-04-28] MEDS: TAMSULOSIN HCL 0.4 MG CAP PO SCH (19:37)
--- NOTE | 2022-04-29 05:55 | Electrocardiogram Report ---
Test Reason : Blood Pressure : / mmHG Vent. Rate : 110 BPM Atrial Rate : 322 BPM P-R Int : 000 ms QRS Dur : 094 ms QT Int : 392 ms P-R-T Axes : 000 -06 055 degrees QTc Int : 530 ms Atrial flutter with variable A-V block Nonspecific ST and T wave abnormality Abnormal ECG When compared with ECG of 24-MAR-2022 10:15, Atrial flutter has replaced Sinus rhythm Vent. rate has increased BY 42 BPM T wave inversion now evident in Anterior leads Confirmed by Juan R Medeiros ([id number]) on 04/29/2022 5:54:58 AM Referred By: Doug Franklin Confirmed By:Juan R Medeiros
[2022-04-29 06:42] LABS: Hematocrit (blood only) 29.6 % (42.0-52.0); Hemoglobin 9.6 g/dl (14.0-18.0); Mean Corpuscular Hemoglobin 29.3 pg (25.0-34.0); Mean Corpuscular Hgb Conc 32.4 g/dL (32.0-36.0); Mean Corpuscular Volume 90.2 fL (80.0-100.0); Mean Platelet Volume 10.8 fL (9.4-12.4); Platelet Count 130 K/uL (130-400); RDW Coefficient of Variation 14.4 % (11.5-14.5); RDW Standard Deviation 46.6 fL (36.4-46.3); Red Blood Count 3.28 M/uL (4.70-6.10); White Blood Count 5.35 K/ul (4.8-10.8)
[2022-04-29 07:11] LABS: INR 2.4 (0.9-1.1); Prothrombin Time 24.4 Seconds (9.0-12.0)
[2022-04-29 07:12] LABS: BUN Creatinine Ratio 12.3 (10-20); Calcium 8.4 mg/dl (8.5-10.1); Creatinine Clr Calc Pharmacy 13.8 ml/min; Est GFR (African American) 13.4 ml/min; Est GFR (Non-African American) 11.5 ml/min; Potassium 3.4 mmol/L (3.5-5.1)
--- NOTE | 2022-04-29 08:16 | XRay Report ---
XR chest 1V portable HISTORY: 77 years-old Male CHF ( AM ) acute shortness of breath COMPARISON: 04/27/2022 TECHNIQUE: AP view of the chest FINDINGS: Cardiac silhouette is enlarged. Prior median sternotomy. Right IJ Qyfugt-x-Ansv catheter distal tip p rojects over the superior cavoatrial junction. No pneumothorax. Trace pleural effusions with mild bib asilar densities, improved from prior. Pulmonary vascular congestion with mild persistent interstitia l coarsening. Chronic left-sided rib fractures. Degenerative changes of the shoulders and spine. IMPRESSION: 1. Cardiomegaly with pulmonary vascular congestion. 2. Trace pleural effusions have decreased in size from prior. 3. Mild bibasilar opacities have also slightly improved. ACT 112: Negative or not required by law. The above report was generated using voice recognition software. It may contain grammatical, syntax o r spelling errors. Electronically signed by: Archie Moore M.D. 04/29/2022 8:15 AM
[2022-04-29] MEDS ORDERED: PSYLLIUM or GUAR GUM FIBER POWDER PACKET PO SCH (09:15)
[2022-04-29] MEDS: METOPROLOL TARTRATE 50 MG TAB PO SCH (10:09)
[2022-04-29] MEDS: POTASSIUM CHLORIDE PWD 20 MEQ PACK PO SCH (10:10)
[2022-04-29] MEDS: LOPERAMIDE HCL 2 MG CAP PO SCH (10:10)
[2022-04-29] MEDS: SIMVASTATIN 20 MG TAB PO SCH (10:11)
[2022-04-29] MEDS: PANCREAZE (LIPASE 10,500U) CAP PO SCH ×2 (10:11→12:05)
[2022-04-29] MEDS: CALCITRIOL 0.25 MCG CAPSULE PO SCH (10:11)
--- NOTE | 2022-04-29 10:11 | Communication Note ---
Date of Service: April 29, 2022 Patient has had one day of imodium. He tells me he had 3 bowel movements yesterday. he tells me he would like to give this more time to see how this works since it was working at home and he only had one dose yesterday. we discussed increasing the dose but he wants to hold off for now. Discussed case with Dr. Wilde and would hold off on colonoscopy at this time - imodium was working at home and would like to see how he does with this. could also consider trial of questran if imodium is not beneficial.
--- NOTE | 2022-04-29 11:41 | Nephrology Progress Note ---
Date of Service April 29, 2022 Assessment & Plan (1) Acute kidney injury: (2) Hypertension: (3) Hypokalemia: (4) Anemia: (5) Metabolic acidosis: Plan 77 yo male with PMH significant for multiple myeloma status post stem cell transplant, hypertension, BPH admitted to the hospital with OMARI with dehydration and repeated episodes of diarrhea. Recently was hospitalized with similar clinical scenario, was discharged home as creatinine was close to 4 and electrolyte was acceptable. But again developed diarrhea and outpatient lab showed Omari with creatinine above 8 with metabolic acidosis and was admitted for further management. Has been on bicarb drip since admission. diarrhea improved with Imodium. He refused colonoscopy. Renal function has been relatively stable last 4 days. --encouraged to maintain po intake and try to keep in positive balance with ongoing diarrhea. Unclear whether there will be any further improvement in renal function with repeated dense ATN. We briefly discussed potential need for renal replacement therapy in near future if no improvement in renal function. Explained in detail that with his multiple significant comorbidities dialysis will not provide meaningful quality of life and encouraged him to think about it and make some decision. --monitor renal function for continued recovery --dose medications for eGFR less than 10 Will follow Admission and Anticipated Discharge Date Admission Date: April 22, 2022 Kimberly Swenson was seen and examined in his room this morning. No overnight events, denies shortness of breath, fever or chills. Diarrhea improved after started on Imodium, did not have any bowel movement today. Renal function staying relatively stable and creatinine seems to have plateaued over last 4 days. Decent po intake, no SOB but I's and O's shows >3 L negative. Blood pressure acceptable. Review of Systems Review of Systems: Detailed review of system was otherwise unremarkable except mentioned above. Physical Exam Constitutional: WD/WN, vitals as above no acute distress Neck: normal visual inspection Respiratory: Auscultation: lungs clear to auscultation bilaterally Cardiovascular: Rate/Rhythm: regular rate and regular rhythm Extremities: + edema (trace b/l LE edema) Skin: no rashes Neurologic: no focal motor deficits Psychiatric: Orientation: alert and oriented x 3 Results & Data ([facility]) Vital Signs (Past 12 Hours) Vital Signs Temp Pulse Pulse Resp BP Pulse Ox O2 Del Method 04/29/22 10:00 66 04/29/22 07:06 36.5 C 67 17 151/66 H 95 Room Air 04/29/22 04:34 36.4 C L 67 18 151/68 H 96 Room Air PG Care Time/CCT Total # of Minutes Spent Total Time Spent with Patient: Total time spent is greater than 50% in coordination of care (as documented) at patient's floor/unit and/or counseling patient: Coding Level of Care Code 21566 SUB INP/OBS CARE 3/50MIN Diagnoses Acute kidney injury N17.9 Hypertension I10 Hypokalemia E87.6 Anemia D64.9 Metabolic acidosis E87.20
--- NOTE | 2022-04-29 12:35 | Discharge Summary ---
Date of Service April 29, 2022 Principal Diagnosis Acute on chronic kidney disease stage V, acute systolic congestive heart failure, symptomatic chronic anemia, chronic protracted diarrhea Discharge Exam General-alert and oriented x3, no fevers, no chills HEENT-head atraumatic and normocephalic, pupils equal and reactive to light, extraocular muscles intact Neck-no lymphadenopathy or thyromegaly, trachea midline Chest-clear to auscultation percussion. No rales wheezing or rhonchi Cardiac-regular rate and rhythm, normal S1 and S2 Abdomen-normal bowel sounds, nontender, no hepatosplenomegaly Extremities-no cyanosis, clubbing, or edema Neuro-cranial nerves II through XII intact, motor and sensory function within normal limits, strength symmetrical , no focal deficits Psych-normal affect, normal mood Discharge Data Allergies Allergy/AdvReac Type Severity Reaction Status Date / Time ASHLEY Inhibitors AdvReac Intermediate COUGH Verified 04/22/22 16:42 acetic acid AdvReac Intermediate Swelling Verified 04/22/22 16:42 of Lip/Tongue/Throat Consultations 04/22/22 16:14 ED Decision to Admit Stat 04/22/22 20:36 Consult Nephrology Routine 04/23/22 09:23 Consult Gastroenterology Routine 04/27/22 14:10 Consult Gastroenterology Routine 04/27/22 16:38 Consult Oncology Routine Ordered Studies 04/23/22 09:23 US renal/blad retro comp Routine Hospital Course (1) Hypokalemia: Now corrected. Continue potassium replacement as an outpatients since he will be taking Lasix (2) Acute renal failure: Improved to creatinine 4.5 from 8.9 on admission. This appears to be his new baseline consistent with chronic kidney disease stage V. Appreciate nephrology consultation and recommendations (3) Chronic kidney disease: Stage V. Monitor intake and output. Serial labs (4) S/P AVR (aortic valve replacement): See cardiac echo report. Continue Coumadin therapy (5) Secondary hyperparathyroidism: No intervention necessary at this time. (6) Coumadin toxicity: Treated and resolved. INR is now 2.4 Plan Discharge to home today, April 29, with home health services. He will follow-up with gastroenterology as an outpatient. Continue Imodium at discharge. Continue Lasix and oral potassium at discharge Total Time Total Time Spent Total Time Spent (In Minutes): 40 minutes Discharge Plan Discharge Items Patient Disposition: Home - Home Health Services Reason For Visit: DIARRHEA, ANDREA ON CKD Discharge Diagnosis: Acute on chronic kidney disease stage V, chronic protracted diarrhea, acute systolic congestive heart failure, symptomatic anemia Activity: Resume your previous activity Non-emergency contact: Primary Care Provider Call non-emergency contact if: you have any medication questions Follow-up/Referrals: Doug Franklin MD [Primary Care Provider] - Diet: Heart Healthy Addtl Attending Provider Instructions: Take Lasix and potassium as directed. Take Imodium for chronic diarrhea. Add Metamucil if needed Pending Studies at Discharge: No Stand-Alone Forms: My [facility], Smoking Cessation Medications and DC Order Prescriptions: [place] 36,000-114,000- 180,000 unit Capsule,Delayed Release(Dr/Ec) 1 cap PO TIDM Qty: 90 0RF loperamide 2 mg Capsule 2 mg PO DAILY Qty: 30 0RF furosemide [Lasix] 80 mg tablet 80 mg PO DAILY Qty: 30 0RF potassium chloride 20 mEq packet 20 meq PO DAILY Qty: 30 0RF Continued simvastatin 20 mg tablet 20 mg PO DAILY Qty: 90 3RF Rx Instructions: PER PT'S FAMILY "NOT SURE WHEN HE LAST TOOK MEDS". metoprolol tartrate 50 mg tablet 50 mg PO BID Qty: 60 5RF warfarin 5 mg tablet 5 mg PO .COMPLEX Rx Instructions: 5 mg orally as directed by [facility] clinic peg 3350-electrolytes [Golytely] 236-22.74-6.74 -5.86 gram recon soln 240 ml PO Q10M Qty: 4000 0RF Rx Instructions: Take per split dose instructions tamsulosin 0.4 mg Capsule 0.4 mg PO HS Qty: 30 1RF calcitriol 0.25 mcg Capsule 0.25 mcg PO DAILY Qty: 30 1RF loperamide 2 mg Capsule 2 mg PO Q3H PRN (Reason: loose stool) Qty: 30 0RF mirtazapine 15 mg Tablet 15 mg PO HS Qty: 30 1RF cholecalciferol (vitamin D3) 25 mcg (1,000 unit) Capsule 2,000 unit PO QAM Qty: 30 0RF sodium bicarbonate 650 mg Tablet 1,300 mg PO BID Qty: 60 0RF heparin (porcine) 5,000 unit/mL solution 5,000 unit UD Discharge Orders: Discharge Order- CHF (Routine); Ordered 04/29/22 Ordered By: Asad Farah Admission Data Admit Date/Time: 04/22/22 17:28 Attending Provider: Asad Farah Admit Provider: Arturo Quigley Primary Care Provider: Doug Franklin Other Providers: Arturo Quigley ; Brett Zhang ; Gloria Samuel ; Raulito Wood ; Catherine Daley ; Justina Live ; Akanksha Reza ; Cyndi Loving ; Buddy Wilde ; Sha Villalta ; Sang Floyd ; Brittanie Johnson ; Christos Luna ; Shivani Haskins ; Krystle Lovett ; Mariel Lawson ; Nicolasa Majano ; Alo Nunez ; Johnnie Root ; Santy Patton ; Bernadine Eli ; Tono Rodriges Jr ; [place] ; Benedicto Frey ; Jono Brown Coding Level of Care Code 51402 INP/OBS DISCH >30 MIN Diagnoses Hypokalemia E87.6 Acute renal failure N17.9 Chronic kidney disease N18.9 S/P AVR (aortic valve replacement) Z95.2 Secondary hyperparathyroidism N25.81 Coumadin toxicity T45.511A
== END 2022-04-29 16:07 | disposition home health service (06) | DRG 682 ==
LOC: ED 12:39 → EDINP 17:28 → SUATTDRO 17:28 → EDINP 20:37 → 2S 22:12

== ENCOUNTER 2022-08-12 14:04 | Inpatient (IN) ==
[2022-08-12] MEDS ORDERED: VANCOMYCIN CONSULT ACTIVE PRN (14:19)
[2022-08-12] MEDS ORDERED: VANCOMYCIN HCL 1,250 MG in SODIUM CHLORIDE 0.9% 500 ML IV STA (14:19)
[2022-08-12] MEDS ORDERED: CEFEPIME 2,000 MG/20 ML VIAL IV STA (14:19)
[2022-08-12] MEDS ORDERED: SODIUM CHLORIDE 0.9% 1000ML 1,000 ML IV SCH (14:30)
[2022-08-12] MEDS ORDERED: SODIUM CHLORIDE 0.9% 1000ML 500 ML IV SCH (14:30)
--- NOTE | 2022-08-12 14:43 | XRay Report ---
XR chest 1V portable HISTORY: 77 years-old Male Sepsis COMPARISON: 04/29/2022 TECHNIQUE: AP view of the chest FINDINGS: Cardiac silhouette is enlarged. Prior median sternotomy. Right IJ Kachna-s-Vzse catheter is unchanged . Chronic biapical pleural-parenchymal scarring. No pneumothorax, pleural effusion or overt pulmonary edema. Mild chronic interstitial coarsening of the lung bases. Possible emphysema. Healed chronic fr acture of the posterolateral left fourth rib. IMPRESSION: 1. Cardiomegaly without acute process. 2. Mild chronic interstitial coarsening of the lung bases. ACT 112: Negative or not required by law. The above report was generated using voice recognition software. It may contain grammatical, syntax o r spelling errors. Electronically signed by: Archie Moore M.D. 08/12/2022 2:42 PM
[2022-08-12 15:04] LABS: Basophils # (auto) 0.03 K/uL (0-0.2); Basophils % (auto) 0.3 %; Eosinophils # (auto) 0.11 K/uL (0-0.50); Eosinophils % (auto) 1.3 %; Hematocrit (blood only) 22.7 % (42.0-52.0); Hemoglobin 7.9 g/dl (14.0-18.0); Immature Granulocytes # (auto) 0.09 K/uL (0.01-0.20); Lymphocytes # (auto) 0.32 K/uL (1.2-3.4); Lymphocytes % (auto) 3.7 %; Mean Corpuscular Hemoglobin 30.7 pg (25.0-34.0); Mean Corpuscular Hgb Conc 34.8 g/dL (32.0-36.0); Mean Corpuscular Volume 88.3 fL (80.0-100.0); Mean Platelet Volume 10.4 fL (9.4-12.4); Monocytes # (auto) 0.58 K/uL (0.11-0.59); Monocytes % (auto) 6.7 %; Neutrophils # (auto) 7.51 K/uL (1.40-6.50); Platelet Count 127 K/uL (130-400); RDW Coefficient of Variation 14.8 % (11.5-14.5); RDW Standard Deviation 48.4 fL (36.4-46.3); Red Blood Count 2.57 M/uL (4.70-6.10); White Blood Count 8.64 K/ul (4.8-10.8)
[2022-08-12 15:21] LABS: Acanthocytes 1+
--- NOTE | 2022-08-12 15:25 | Electrocardiogram Report ---
Test Reason : Blood Pressure : / mmHG Vent. Rate : 078 BPM Atrial Rate : 078 BPM P-R Int : 188 ms QRS Dur : 100 ms QT Int : 450 ms P-R-T Axes : 082 -30 076 degrees QTc Int : 513 ms Sinus rhythm with Premature atrial complexes Left axis deviation Prolonged QT Abnormal ECG When compared with ECG of 27-APR-2022 18:18, Sinus rhythm has replaced Atrial flutter Nonspecific T wave abnormality no longer evident in Inferior leads T wave inversion no longer evident in Anterior leads Confirmed by Doug Butler ([id number]) on 08/12/2022 3:24:37 PM Referred By: Confirmed By:Doug Butler
[2022-08-12] MEDS: SODIUM CHLORIDE 0.9% 1000ML 1,000 ML IV SCH ×2 (15:32→21:52)
[2022-08-12 16:11] LABS: Appearance Urine Turbid (Clear); Bilirubin Urine Negative (Negative); Blood Urine 3+ (Negative); Color Urine Yellow; Epithelial Cell Urine Auto >30 /lpf (0-5); Glucose Urine UA Trace (Negative); Ketones Urine Negative (Negative); Leukocyte Esterase Urine 3+ (Negative); Nitrite Urine Negative (Negative); Protein Urine 2+ (Negative); RBC Urine Automated >30 /hpf (0-4); Specific Gravity Urine 1.011 (1.000-1.030); Urobilinogen Urine Negative (Negative); WBC Urine Automated >30 /hpf (0-5)
--- NOTE | 2022-08-12 16:11 | Emergency Department Note ---
Impression & Plan ANDREA (acute kidney injury), Acute dehydration, Acute uremia ED Provider Note INFORMANT: Patient ED PROVIDER(S): Kory Yi DO CHIEF COMPLAINT: Generalized weakness, achiness, joint pain, decreased p.o. intake PLAN: Disposition: Admission Outpatient prescription management: [none] Discussion with: I spoke with the hospitalist, who will see the patient for admission/observation and further evaluation and consultation. MEDICAL DECISION MAKING: This is a 77-year-old male who presents to the ED with a chief complaint of feeling tired and achy. States that especially his knee joints seem to be bothering him. He also reports worse back pain and neck pain than usual. His states that he has had decreased p.o. intake primarily secondary to things not tasting well. Initial blood pressure was low at 86/42. Other vital signs were unremarkable. Physical exam reveals a dry tongue. No fevers. No nausea vomiting or diarrhea. Does have history of kidney failure in the past. The patient's hemoglobin is 7.9. Last time it was checked here was 10.1. Proc alcitonin is mildly elevated 0.72. Lactic acid is negative. Anion gap was 24. Bicarb is low. This is likely related to uremia with a BUN of 158. Creatinine is elevated 12.5. This is higher than baseline. Leukosis 164. Troponin was mildly elevated. Procalcitonin was mildly elevated. Urine appears contaminated. No clear infection. The patient was treated with IV fluids 30 cc/kg. He was given some empiric IV antibiotics with IV cefepime. An IV dose of vancomycin was also provided. The patient will be seen by the hospitalist for further evaluation and care. Triage Nursing notes reviewed. Vital Signs: reviewed Prior /Outside records reviewed: [none] Differential diagnosis: Differential includes acute coronary syndrome, myocardial infarction, CVA, TIA, anemia, infection, pneumonia, UTI, pyelonephritis, poor nutrition, dehydration, electrolyte disturbance,hypoglycemia. Diagnostics, as interpreted by me: 12 lead ECG: Sinus rhythm rate of [address] elevation. Normal QTc no PVCs Cardiac Monitoring ordered: Sinus rhythm in the 70s Medical decision rules: [none] Imaging studies: Chest x-ray: No acute disease. No pneumonia or pneumothorax Procedures: none. Critical care: none. HPI: See MDM above. PAST MEDICAL HISTORY: See Below PAST SURGICAL HISTORY: See Below SOCIAL HISTORY: See Below HOME MEDICATIONS:See Below ALLERGIES: See Below VITALS: See Below PHYSICAL EXAMINATION: See MDM for positive findings otherwise unremarkable. CONSTITUTIONAL/VITAL SIGNS: Reviewed GENERAL:done as appropriate INTEGUMENTARY: done as appropriate HEAD: done as appropriate EYES: done as appropriate RESPIRATORY: done as appropriate CARDIOVASCULAR:done as appropriate GI/ABDOMEN:done as appropriate EXTREMITIES: done as appropriate NEUROLOGICAL: done as appropriate PSYCHIATRIC:done as appropriate MUSCULOSKELETAL:done as appropriate TRIAGE NURSING DOCUMENTATION REVIEWED. Past Med/Surg History Medical History Anemia Atrial fibrillation Diarrhea Dyslipidemia Elevated prostate specific antigen (PSA) Hypertension Hypokalemia Metabolic acidosis Multiple myeloma Supratherapeutic INR Surgical History H/O stem cell transplant S/P AVR (aortic valve replacement) Family History Mother Alzheimer disease Sister Breast cancer Father Myocardial infarction Denies family history of Ovarian cancer Prostate cancer Colorectal cancer Social History Smoking Status: Never smoker Second Hand Exposure: No; Do You Dip or Chew Tobacco: No; Hx Alcohol Use: No Hx Substance Use: No Preferred Language: Hebrew Communication Ability: Effective Director [employer] Required: No Beliefs That Will Affect Care: None marital status: Current Living Situation: Spouse current occupational status: employed 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 Feels Safe at Home: Yes Childhood Exposure to Second-Hand Smoke: No Diet: low salt Dental Care, Regularly: Yes Physical Activity Frequency: 1-2 Times per Week Physical Activity Frequency Comment: walk Seatbelt Use: always Sunscreen Use: Yes Assistive Devices: Cane and Walker Allergies Allergies Allergy/AdvReac Type Severity Reaction Status Date / Time ASHLEY Inhibitors AdvReac Intermediate COUGH Verified 08/12/22 16:47 acetic acid AdvReac Intermediate Swelling Verified 08/12/22 16:47 of Lip/Tongue/Throat Home Meds Home Medications Medication Instructions Recorded Confirmed furosemide 80 mg tablet 80 mg PO BID 08/12/22 08/12/22 Previous Rx's Medication Instructions Recorded simvastatin 20 mg tablet 20 mg PO DAILY #90 tabs 08/11/21 cholecalciferol (vitamin D3) 25 2,000 unit PO QAM #30 caps 04/08/22 mcg (1,000 unit) capsule sodium bicarbonate 650 mg tablet 1,300 mg PO BID #60 tabs 04/08/22 metoprolol tartrate 50 mg tablet 50 mg PO BID #60 tabs 04/19/22 [id number] 1 cap PO TIDM #90 caps 05/14/22 36,000-114,000-180,000 unit capsule,delay rel (Creon) loperamide 2 mg capsule 2 mg PO Q3H PRN loose stool #30 07/01/22 caps calcitriol 0.25 mcg capsule 0.25 mcg PO DAILY #30 caps 07/07/22 tamsulosin 0.4 mg capsule 0.4 mg PO HS #30 caps 07/07/22 potassium chloride 20 mEq oral 20 meq PO DAILY #30 ea 07/28/22 packet warfarin 5 mg tablet 5 mg PO .COMPLEX #30 tabs 08/02/22 Results & Data (ED) Vital Signs Vital Signs - 24 hr 08/12/22 14:09 08/12/22 14:39 08/12/22 14:30 Temperature 36.3 C L Temperature Source Oral Pulse Rate 88 87 82 Pulse Rate from SpO2 Sensor 82 Respiratory Rate 18 22 Blood Pressure 86/42 L 115/60 Blood Pressure Mean 56 78 Pulse Oximetry 100 100 Oxygen Delivery Method Room Air Sepsis Recent Fever Within 48 Hours No Sepsis New/Unexplained Change in Mental Status No Sepsis Action Taken by Nursing No Action Required 08/12/22 15:20 08/12/22 15:30 08/12/22 15:45 Temperature Temperature Source Pulse Rate 81 84 85 Pulse Rate from SpO2 Sensor 86 Respiratory Rate 18 22 30 H Blood Pressure 110/58 L 107/62 93/64 L Blood Pressure Mean 75 77 73 Pulse Oximetry 98 Oxygen Delivery Method Sepsis Recent Fever Within 48 Hours Sepsis New/Unexplained Change in Mental Status Sepsis Action Taken by Nursing Laboratory Data 08/12/22 14:48 08/12/22 14:48 Lab Results 08/12/22 08/12/22 08/12/22 Range/Units 14:48 14:48 14:48 WBC 8.64 (4.8-10.8) K/ul RBC 2.57 L (4.70-6.10) M/uL Hgb 7.9 L (14.0-18.0) g/dl Hct 22.7 L (42.0-52.0) % MCV 88.3 (80.0-100.0) fL MCH 30.7 (25.0-34.0) pg MCHC 34.8 (32.0-36.0) g/dL RDW Std Deviation 48.4 H (36.4-46.3) fL RDW Coeff of [place] 14.8 H (11.5-14.5) % Plt Count 127 L (130-400) K/uL MPV 10.4 (9.4-12.4) fL Immature Gran % (Auto) 1.0 % Neut % (Auto) 87.0 % Lymph % (Auto) 3.7 % [place] % (Auto) 6.7 % Eos % (Auto) 1.3 % Baso % (Auto) 0.3 % Neut # (Auto) 7.51 H (1.40-6.50) K/uL Lymph # (Auto) 0.32 L (1.2-3.4) K/uL [place] # (Auto) 0.58 (0.11-0.59) K/uL Eos # (Auto) 0.11 (0-0.50) K/uL Baso # (Auto) 0.03 (0-0.2) K/uL Immature Gran # (Auto) 0.09 (0.01-0.20) K/uL Acanthocytes (Spur) 1+ PT INR APTT PTT Ratio Sodium 135 L (136-145) mmol/L Potassium 4.8 (3.5-5.1) mmol/L Chloride 103 (98-107) mmol/L Carbon Dioxide 8 L* (21-32) mmol/L Anion Gap 24 H (3-11) BUN 158 H (6-23) mg/dl Creatinine 12.52 H* (0.6-1.4) mg/dl Est Cr Clr Drug Dosing 4.7 ml/min Est GFR ( Amer) 3.9 ml/min Est GFR (Non-Af Amer) 3.4 ml/min BUN/Creatinine Ratio 12.6 (10-20) Glucose 164 H (70-99(Fasting)) mg/dl Lactate 0.8 (0.4-2.0) mmol/L Calcium 6.3 L (8.6-10.3) mg/dl Magnesium 1.0 L (1.7-2.4) mg/dl Total Bilirubin 0.3 (0.2-1.0) mg/dl Direct Bilirubin 0.0 (0-0.2) mg/dl AST 8 L (13-39) U/L ALT 7 (7-52) U/L Alkaline Phosphatase 57 (34-104) U/L Troponin I High Sens 21.9 H (0-20) pg/ml Total Protein 7.7 (6.0-8.3) gm/dl Albumin 3.6 (3.4-5.0) gm/dl Procalcitonin (0-0.5) ng/ml Urine Color Urine Appearance (Clear) Urine pH (4.5-7.5) Ur Specific [place] (1.000-1.030) Urine Protein (Negative) Urine Glucose (UA) (Negative) Urine Ketones (Negative) Urine Blood (Negative) Urine Nitrite (Negative) Urine Bilirubin (Negative) Urine Urobilinogen (Negative) Ur Leukocyte Esterase (Negative) Urine WBC (Auto) (0-5) /hpf Urine RBC (Auto) (0-4) /hpf U Hyaline Cast (Auto) (0-5) /lpf U Epithel Cells (Auto) (0-5) /lpf Urine Bacteria (Auto) (Negative) Urine Yeast 08/12/22 08/12/22 08/12/22 Range/Units 14:48 14:48 15:40 WBC (4.8-10.8) K/ul RBC (4.70-6.10) M/uL Hgb (14.0-18.0) g/dl Hct (42.0-52.0) % MCV (80.0-100.0) fL MCH (25.0-34.0) pg MCHC (32.0-36.0) g/dL RDW Std Deviation (36.4-46.3) fL RDW Coeff of [place] (11.5-14.5) % Plt Count (130-400) K/uL MPV (9.4-12.4) fL Immature Gran % (Auto) % Neut % (Auto) % Lymph % (Auto) % [place] % (Auto) % Eos % (Auto) % Baso % (Auto) % Neut # (Auto) (1.40-6.50) K/uL Lymph # (Auto) (1.2-3.4) K/uL [place] # (Auto) (0.11-0.59) K/uL Eos # (Auto) (0-0.50) K/uL Baso # (Auto) (0-0.2) K/uL Immature Gran # (Auto) (0.01-0.20) K/uL Acanthocytes (Spur) PT Cancelled INR Cancelled APTT Cancelled PTT Ratio Cancelled Sodium (136-145) mmol/L Potassium (3.5-5.1) mmol/L Chloride (98-107) mmol/L Carbon Dioxide (21-32) mmol/L Anion Gap (3-11) BUN (6-23) mg/dl Creatinine (0.6-1.4) mg/dl Est Cr Clr Drug Dosing ml/min Est GFR ( Amer) ml/min Est GFR (Non-Af Amer) ml/min BUN/Creatinine Ratio (10-20) Glucose (70-99(Fasting)) mg/dl Lactate (0.4-2.0) mmol/L Calcium (8.6-10.3) mg/dl Magnesium (1.7-2.4) mg/dl Total Bilirubin (0.2-1.0) mg/dl Direct Bilirubin (0-0.2) mg/dl AST (13-39) U/L ALT (7-52) U/L Alkaline Phosphatase (34-104) U/L Troponin I High Sens (0-20) pg/ml Total Protein (6.0-8.3) gm/dl Albumin (3.4-5.0) gm/dl Procalcitonin 0.72 H (0-0.5) ng/ml Urine Color Yellow Urine Appearance Turbid A (Clear) Urine pH 5.0 (4.5-7.5) Ur Specific [place] 1.011 (1.000-1.030) Urine Protein 2+ H (Negative) Urine Glucose (UA) Trace H (Negative) Urine Ketones Negative (Negative) Urine Blood 3+ H (Negative) Urine Nitrite Negative (Negative) Urine Bilirubin Negative (Negative) Urine Urobilinogen Negative (Negative) Ur Leukocyte Esterase 3+ H (Negative) Urine WBC (Auto) >30 H (0-5) /hpf Urine RBC (Auto) >30 H (0-4) /hpf U Hyaline Cast (Auto) 1-5 (0-5) /lpf U Epithel Cells (Auto) >30 H (0-5) /lpf Urine Bacteria (Auto) 2+ H (Negative) Urine Yeast Not Reportable Administered Medications Discontinued Medications Cefepime HCl (Maxipime) 2,000 mg in 20 mls @ 5 mls/min IV NOW STA; Protocol Stop: 08/12/22 14:22 Last Admin: 08/12/22 15:32 Dose: 5 mls/min Documented By: LAKESHIA Vancomycin HCl 1,250 mg/ (Sodium Chloride) 525 mls @ 200 mls/hr IV NOW STA Stop: 08/12/22 16:56 Last Admin: 08/12/22 15:33 Dose: 200 mls/hr Documented By: LAKESHIA Sodium Chloride (Nss 1000ml) 1,000 mls @ 999 mls/hr IV .Q1H1M SYLVIA Stop: 08/12/22 16:30 Last Admin: 08/12/22 15:32 Dose: 999 mls/hr Documented By: LAKESHIA Sodium Chloride (Nss 1000ml) 1,000 mls @ 999 mls/hr IV .Q1H1M SYLVIA Stop: 08/12/22 15:30 Last Admin: 08/12/22 16:23 Dose: 999 mls/hr Documented By: LAKESHIA Imaging Data Radiologist's Impression: Chest X-Ray 08/12/22 14:19 XR chest 1V portable HISTORY: 77 years-old Male Sepsis COMPARISON: 04/29/2022 TECHNIQUE: AP view of the chest FINDINGS: Cardiac silhouette is enlarged. Prior median sternotomy. Right IJ [id number] catheter is unchanged. Chronic biapical pleural-parenchymal scarring. No pneumothorax, pleural effusion or overt pulmonary edema. Mild chronic interstitial coarsening of the lung bases. Possible emphysema. Healed chronic fracture of the posterolateral left fourth rib. IMPRESSION: 1. Cardiomegaly without acute process. 2. Mild chronic interstitial coarsening of the lung bases. ACT 112: Negative or not required by law. The above report was generated using voice recognition software. It may contain grammatical, syntax or spelling errors. Electronically signed by: Archie Moore M.D. 08/12/2022 2:42 PM Discharge Plan Visit Data Chief Complaint: Illness Stated Complaint: LOW GRADE FEVER ED Provider: Kory Yi Discharge Problem: ANDREA (acute kidney injury), Acute dehydration, Acute uremia Patient Disposition: Being Evaluated by Hospitalist Forms Stand Alone Forms: My [facility], Virtual Emergency Department, Important Visit Information Prescriptions Prescriptions: No Action simvastatin 20 mg tablet 20 mg PO DAILY Qty: 90 3RF metoprolol tartrate 50 mg tablet 50 mg PO BID Qty: 60 5RF loperamide 2 mg capsule 2 mg PO Q3H PRN (Reason: loose stool) Qty: 30 0RF tamsulosin 0.4 mg capsule 0.4 mg PO HS Qty: 30 1RF calcitriol 0.25 mcg capsule 0.25 mcg PO DAILY Qty: 30 5RF potassium chloride 20 mEq packet 20 meq PO DAILY Qty: 30 5RF warfarin 5 mg tablet 5 mg PO .COMPLEX Qty: 30 1RF Rx Instructions: TAKES 5 MG ON MONDAYS ONLY, THEN 2.5 MG ALL OTHER DAYS. Creon 36,000-114,000- 180,000 unit capsule,delayed release(DR/EC) 1 cap PO TIDM Qty: 90 3RF cholecalciferol (vitamin D3) 25 mcg (1,000 unit) Capsule 2,000 unit PO QAM Qty: 30 0RF Rx Instructions: PER PT'S FAMILY "WAS ONLY GIVING HIM 1 TAB DAILY". sodium bicarbonate 650 mg Tablet 1,300 mg PO BID Qty: 60 0RF furosemide 80 mg tablet 80 mg PO BID Rx Instructions: PER PT'S FAMILY Referrals Referrals: Pro,Doug Fowler MD [Primary Care Provider] -
[2022-08-12 16:33] LABS: Albumin Level 3.6 gm/dl (3.4-5.0); BUN Creatinine Ratio 12.6 (10-20); Bilirubin,Total 0.3 mg/dl (0.2-1.0); Calcium 6.3 mg/dl (8.6-10.3); Creatinine Clr Calc Pharmacy 4.7 ml/min; Est GFR (African American) 3.9 ml/min; Est GFR (Non-African American) 3.4 ml/min; Potassium 4.8 mmol/L (3.5-5.1); Total Protein 7.7 gm/dl (6.0-8.3); Troponin I High Sensitivity 21.9 pg/ml (0-20)
[2022-08-12 16:48] LABS: Bacteria Urine Automated 2+ (Negative)
[2022-08-12 17:44] LABS: Partial Thromboplastin Ratio > 4.9
[2022-08-12 17:47] LABS: Prothrombin Time > 90.0 Seconds (9.0-12.0)
[2022-08-12 17:48] LABS: INR > 9.5 (0.9-1.1); Partial Thromboplastin Time > 139.0 Seconds (21.0-31.0)
[2022-08-12 17:59] LABS: Albumin Level 3.2 gm/dl (3.4-5.0); BUN Creatinine Ratio 12.7 (10-20); Bilirubin,Total 0.3 mg/dl (0.2-1.0); Calcium 5.7 mg/dl (8.6-10.3); Est GFR (African American) 4.2 ml/min; Est GFR (Non-African American) 3.7 ml/min; Potassium 4.8 mmol/L (3.5-5.1); Total Protein 6.7 gm/dl (6.0-8.3); Troponin I High Sensitivity 18.8 pg/ml (0-20)
--- NOTE | 2022-08-12 18:00 | History & Physical Report ---
Date of Service August 12, 2022 Assessment & Plan (1) Acute uremia: Plan: Acute and unstable Admission to [facility] tele Monitor labs closely replace magnesium check renal U/S consult nephrology exchange Chandler check CK, urine sodium, urine urea (2) Acute dehydration: Plan: Acute and unstable see above Held Lasix and Potassium (3) Hematuria, microscopic: Plan: Acute and unstable await urine C&S continue Cefepime and vanco replace Chandler to consider urology eval this admission (4) Urinary retention: Plan: chronic see above continue tamsulosin (5) Chronic kidney disease: Plan: see above (6) Pancreatic lesion: Plan: chronic, stable follow with GI had recent EGD/EUS Continue Creon Held Loperamide (per patient takes 1-2 times per week) (7) Secondary hyperparathyroidism: Plan: chronic, stable Last PTH 373 was 894 in Mar (8) S/P AVR (aortic valve replacement): Plan: chronic [facility] Jud[facility] Valve - Continue Coumadin - Check PT/INR Last echo April EF 35-40% severe LAD territory wall motion abnormality (9) Hypertension: Plan: chronic stable on metoprolol (10) Elevated prostate specific antigen (PSA): Plan: chronic follows with urology (11) Paroxysmal A-fib: Plan: Chronic on coumadin (12) Anemia: Plan: Chronic Likely mixed anemia of chronic disease and iron deficiency Had iron studies in April will add B12 and Folate (13) Multiple myeloma: Plan: Chronic S/P autologous transplant (not on immunosuppressants) History of Present Illness Chief Complaint: weakness, fatigue, weight loss, no appetite and myalgias x 2 weeks Primary Care Provider: Doug Franklin MD Messi Londono is a 77 year old with an extensive past medical history of chronic kidney disease with a hx of renal failure, paroxysmal A Fib on coumadin, hx of AVR, HTN, HLD, secondary hyperparathyroidism, h/o multiple myeloma, asymptomatic cholelithiasis, and hx of pancreatic cysts s/p EUS in June who presented to the ER today complaining of extreme fatigue and weakness. He has had progressive fatigue, weakness and myalgias in neck and back for the past 2 weeks. He denies any chest pain, SOB, Cough, fever, chills, congestion, abdominal pain, nausea, vomiting, hematochezia, melena, BRB NH. He went to the nephrology office today to have his Chandler exchanged but states he was unable to get it exchanged due to the doctor not in the office. Patient was evaluated and found to have worsening renal functions, BUN 158, Cr 12.5, Bicarb is low at 8, Hgb 7.9 (baseline 8-10) procal slightly elevated at 0.7, urine possibly contaminated vs UTI, await C&S, lactate normal, troponin mildly elevated. Magnesium low at 1. Patient had iron studies in April with iron low a 30, TIBC 150, ferritin 457, % saturation 20. Patient had EGD and EUS in June with a FN aspiration of the pancreatic cyst in the uncinate process with no malignancy. He had a hx of chronic diarrhea but this resolved with Creon and 1-2 x per week of taking Imodium. Patient refused a colonoscopy in the past. He also has a hx of an elevated PSA of 11.99 in June. PTH in June was 373 (894 in Mar) Patient had a CXR, EKG in ER and was given Cefepime and Vancomycin Allergies Allergy/AdvReac Type Severity Reaction Status Date / Time ASHLEY Inhibitors AdvReac Intermediate COUGH Verified 08/12/22 16:47 acetic acid AdvReac Intermediate Swelling Verified 08/12/22 16:47 of Lip/Tongue/Throat Home Medications Medication Instructions Recorded Confirmed Type simvastatin 20 mg tablet 20 mg PO DAILY #90 tabs 08/11/21 08/12/22 Rx cholecalciferol (vitamin D3) 25 2,000 unit PO QAM #30 caps 04/08/22 08/12/22 Rx mcg (1,000 unit) capsule sodium bicarbonate 650 mg tablet 1,300 mg PO BID #60 tabs 04/08/22 08/12/22 Rx metoprolol tartrate 50 mg tablet 50 mg PO BID #60 tabs 04/19/22 08/12/22 Rx gjwhgr-aojkrkga-rvirknt 1 cap PO TIDM #90 caps 05/14/22 08/12/22 Rx 36,000-114,000-180,000 unit capsule,delay rel (Creon) loperamide 2 mg capsule 2 mg PO Q3H PRN loose stool #30 07/01/22 08/12/22 Rx caps calcitriol 0.25 mcg capsule 0.25 mcg PO DAILY #30 caps 07/07/22 08/12/22 Rx tamsulosin 0.4 mg capsule 0.4 mg PO HS #30 caps 07/07/22 08/12/22 Rx potassium chloride 20 mEq oral 20 meq PO DAILY #30 ea 07/28/22 08/12/22 Rx packet warfarin 5 mg tablet 5 mg PO .COMPLEX #30 tabs 08/02/22 08/12/22 Rx furosemide 80 mg tablet 80 mg PO BID 08/12/22 08/12/22 History Past Med/Surg History Medical History Anemia Atrial fibrillation Diarrhea Dyslipidemia Elevated prostate specific antigen (PSA) Hypertension Hypokalemia Metabolic acidosis Multiple myeloma Supratherapeutic INR Surgical History H/O stem cell transplant S/P AVR (aortic valve replacement) Family History Mother Alzheimer disease Sister Breast cancer Father Myocardial infarction Denies family history of Ovarian cancer Prostate cancer Colorectal cancer Social History Smoking Status: Never smoker Second Hand Exposure: No; Do You Dip or Chew Tobacco: No; Hx Alcohol Use: No Hx Substance Use: No Preferred Language: British Communication Ability: Effective Kiln Operator Helper Required: No Beliefs That Will Affect Care: None marital status: Current Living Situation: Spouse current occupational status: employed 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 Feels Safe at Home: Yes Childhood Exposure to Second-Hand Smoke: No Diet: low salt Dental Care, Regularly: Yes Physical Activity Frequency: 1-2 Times per Week Physical Activity Frequency Comment: walk Seatbelt Use: always Sunscreen Use: Yes Assistive Devices: Cane and Walker Review of Systems Constitutional: + body aches, + fatigue, + malaise, + weakness, + anorexia and + weight loss; no fever and no chills Respiratory: + cough; no chest congestion, no dyspnea, no hemoptysis and no sputum production Cardiovascular: no chest pain, no dyspnea, no orthopnea, no lightheadedness, no syncope, no edema and no calf pain Gastrointestinal: no abdominal pain, no nausea, no vomiting, no coffee ground emesis, no dysphagia, no change in bowel habits, no diarrhea/loose stools and no blood in stools Genitourinary: no flank pain (With Chandler - due for exchange) Musculoskeletal: Pain in neck and back general myalgias with no injury or trauma Endocrine: no polydipsia, no polyphagia and no polyuria Physical Exam Constitutional: + ill appearing, + cachectic and + frail appearing Neck: trachea midline, no thyromegaly Respiratory: able to speak in complete sentences; no respiratory distress and no labored breathing Auscultation: + diminished lung sounds; no crackles, no rales and no rhonchi Cardiovascular: Rate/Rhythm: regular rate and regular rhythm artificial valve click on auscultation Chest (Breasts): Additional Comments: port right chest Gastrointestinal (Abdomen): normal bowel sounds, soft, nontender, no hepatosplenomegaly Psychiatric: A+Ox3, euthymic affect Results & Data Results & Data Vital Signs (Past 12 Hours) Vital Signs Temp Pulse Resp BP Pulse Ox O2 Del Method 08/12/22 17:14 81 22 113/67 99 08/12/22 17:00 82 23 108/59 L 99 08/12/22 16:45 84 21 98/60 L 98 08/12/22 16:15 85 19 123/56 L 97 08/12/22 16:00 83 22 105/59 L 97 08/12/22 15:45 85 30 H 93/64 L 98 08/12/22 15:30 84 22 107/62 08/12/22 15:20 81 18 110/58 L 08/12/22 14:30 82 22 115/60 100 08/12/22 14:39 87 08/12/22 14:09 36.3 C L 88 18 86/42 L 100 Room Air Laboratory Results Abnormal lab results 08/12/22 08/12/22 08/12/22 Range/Units 14:48 14:48 14:48 RBC 2.57 L (4.70-6.10) M/uL Hgb 7.9 L (14.0-18.0) g/dl Hct 22.7 L (42.0-52.0) % RDW Std Deviation 48.4 H (36.4-46.3) fL RDW Coeff of Berto 14.8 H (11.5-14.5) % Plt Count 127 L (130-400) K/uL Neut # (Auto) 7.51 H (1.40-6.50) K/uL Lymph # (Auto) 0.32 L (1.2-3.4) K/uL PT (9.0-12.0) Seconds INR (0.9-1.1) APTT (21.0-31.0) Seconds Sodium 135 L (136-145) mmol/L Chloride (98-107) mmol/L Carbon Dioxide 8 L* (21-32) mmol/L Anion Gap 24 H (3-11) BUN 158 H (6-23) mg/dl Creatinine 12.52 H* (0.6-1.4) mg/dl Glucose 164 H (70-99(Fasting)) mg/dl Calcium 6.3 L (8.6-10.3) mg/dl Magnesium 1.0 L (1.7-2.4) mg/dl AST 8 L (13-39) U/L ALT (7-52) U/L Troponin I High Sens 21.9 H (0-20) pg/ml Albumin (3.4-5.0) gm/dl Procalcitonin 0.72 H (0-0.5) ng/ml Urine Appearance (Clear) Urine Protein (Negative) Urine Glucose (UA) (Negative) Urine Blood (Negative) Ur Leukocyte Esterase (Negative) Urine WBC (Auto) (0-5) /hpf Urine RBC (Auto) (0-4) /hpf U Epithel Cells (Auto) (0-5) /lpf Urine Bacteria (Auto) (Negative) 08/12/22 08/12/22 08/12/22 Range/Units 15:40 16:31 16:31 RBC (4.70-6.10) M/uL Hgb (14.0-18.0) g/dl Hct (42.0-52.0) % RDW Std Deviation (36.4-46.3) fL RDW Coeff of Berto (11.5-14.5) % Plt Count (130-400) K/uL Neut # (Auto) (1.40-6.50) K/uL Lymph # (Auto) (1.2-3.4) K/uL PT > 90.0 H (9.0-12.0) Seconds INR > 9.5 H* (0.9-1.1) APTT > 139.0 H* (21.0-31.0) Seconds Sodium (136-145) mmol/L Chloride 108 H (98-107) mmol/L Carbon Dioxide 6 L* (21-32) mmol/L Anion Gap 22 H (3-11) BUN 149 H (6-23) mg/dl Creatinine 11.71 H* D (0.6-1.4) mg/dl Glucose 133 H (70-99(Fasting)) mg/dl Calcium 5.7 L* (8.6-10.3) mg/dl Magnesium (1.7-2.4) mg/dl AST 7 L (13-39) U/L ALT 6 L (7-52) U/L Troponin I High Sens (0-20) pg/ml Albumin 3.2 L (3.4-5.0) gm/dl Procalcitonin (0-0.5) ng/ml Urine Appearance Turbid A (Clear) Urine Protein 2+ H (Negative) Urine Glucose (UA) Trace H (Negative) Urine Blood 3+ H (Negative) Ur Leukocyte Esterase 3+ H (Negative) Urine WBC (Auto) >30 H (0-5) /hpf Urine RBC (Auto) >30 H (0-4) /hpf U Epithel Cells (Auto) >30 H (0-5) /lpf Urine Bacteria (Auto) 2+ H (Negative) Diagnostic Findings Chest X-Ray 08/12/22 14:19 XR chest 1V portable HISTORY: 77 years-old Male Sepsis COMPARISON: 04/29/2022 TECHNIQUE: AP view of the chest FINDINGS: Cardiac silhouette is enlarged. Prior median sternotomy. Right IJ Woaudy-z-Vjnm catheter is unchanged. Chronic biapical pleural-parenchymal scarring. No pneumothorax, pleural effusion or overt pulmonary edema. Mild chronic interstitial coarsening of the lung bases. Possible emphysema. Healed chronic fracture of the posterolateral left fourth rib. IMPRESSION: 1. Cardiomegaly without acute process. 2. Mild chronic interstitial coarsening of the lung bases. ACT 112: Negative or not required by law. The above report was generated using voice recognition software. It may contain grammatical, syntax or spelling errors. Electronically signed by: Archie Moore M.D. 08/12/2022 2:42 PM Supervising Physician Co-Signing Physician Notes Patient seen and examined, chart reviewed, case discussed with SON beatty I agree with the assessment and plan as documented above. In bref, patient is a 77yo male with history of atrial fibrillation, mechanical aortic valve on Coumadin, HLP, HTN and CKD presenting with several days of fatigue and weakness, decreased oral intake due to food not tasting well. Patient denies melena or hematochezia, no gross hematuria noted in Chandler. He reports adequate and unchanged urinary output in his Chandler. On exam patient appears tired and chronically ill, oriented x 4 Skin - mild pallor, no icterus or jaundice HEENT- NC/AT, PERRL, dry mucus membranes Heart - +S1/S2, regular, mid-systolic click Lungs - CTA Abd - +BS, soft, NT/ND Chandler in place with cloudy urine in bag Ext - warm, well perfused, trace edema bilateral LE Neuro - Grossly normal Labs and images reviewed Significant for normochromic, normocytic anemia with Hgb=7.9, Hct=22.7, Okb=734 Anion gap metabolic acidosis - Gap=22, HCO3=6 Lact=0.8 PXJ=713, Cr=11.7 Coags with INR>9.5, PT>90, PTT>139 Assessment/Plan 77yo male with multiple medical comorbidities presenting with worsening renal function and anemia. Patent with labs as above. K is normal at 4.8. He has a Chandler catheter in place and is making urine -Admit to medical with telemetry -Repeat BMP and PT/INR now -Check VBG -Check renal ultrasound to assess for obstruction or mass - Chandler in place with UOP -Check urine Na/Urea and CK -Peripheral blood smear - ?hemolysis, TTP - anemia/thrombocytopenia/worsening renal function? -IVF given x 2L - consider Bicarbonate drip if additional fluid needed -Continue Vancomycin and Cefepime -Remainder of plan as above PG Care Time/CCT Total # of Minutes Spent Total Time Spent with Patient: Total time spent is greater than 50% in coordination of care (as documented) at patient's floor/unit and/or counseling patient: Coding Level of Care Code 40113 INT INP/OBS CARE 2/55MIN Diagnoses Acute uremia N19 Acute dehydration E86.0 Hematuria, microscopic R31.29 Urinary retention R33.9 Chronic kidney disease N18.9 Pancreatic lesion K86.9 Secondary hyperparathyroidism N25.81 S/P AVR (aortic valve replacement) Z95.2 Hypertension I10 Elevated prostate specific antigen (PSA) R97.20 Paroxysmal A-fib I48.0 Anemia D64.9 Multiple myeloma C90.00
[2022-08-12] MEDS ORDERED: METOPROLOL TARTRATE 50 MG TAB PO SCH (21:00)
[2022-08-12 22:04] LABS: Base Excess VBG -20.5 mEq/L; HCO3 VBG 7 mmol/L; Oxygen Saturation VBG 65.7 %; PCO2 VBG 23 mmHg (38-50); PO2 VBG 43 mmHg; pH VBG 7.11 (7.36-7.41)
[2022-08-12] MEDS: MAGNESIUM SULFATE / D5W 1 GM/100 ML BAG IV SCH ×2 (22:08→23:38)
[2022-08-12] MEDS: SODIUM BICARBONATE 650 MG TAB PO SCH (22:09)
[2022-08-12] MEDS: TAMSULOSIN HCL 0.4 MG CAP PO SCH (22:09)
[2022-08-12 22:41] LABS: Prothrombin Time > 90.0 Seconds (9.0-12.0)
[2022-08-12 22:49] LABS: INR > 9.5 (0.9-1.1)
[2022-08-12 23:04] LABS: BUN Creatinine Ratio 13.4 (10-20); Calcium 5.4 mg/dl (8.6-10.3); Creatinine Clr Calc Pharmacy 5.1 ml/min; Est GFR (African American) 4.3 ml/min; Est GFR (Non-African American) 3.7 ml/min; Potassium 4.6 mmol/L (3.5-5.1)
[2022-08-12] MEDS: ACETAMINOPHEN 325 MG TAB PO PRN (23:15)
[2022-08-12] MEDS ORDERED: PHYTONADIONE 10 MG in DEXTROSE 5% 50 ML IV ONE (23:30)
[2022-08-12] MEDS ORDERED: STAT IV STA (23:53)
[2022-08-13 00:10] LABS: iSTAT Allen Test Pass; iSTAT Art Bld Gas pCO2 Correct 15 mmHg (35-46); iSTAT Arterial Blood Gas HCO3 7 meg/L (19-24); iSTAT Arterial Blood Gas pCO2 15 mmHg (35-46); iSTAT Arterial Blood Gas pH 7.24 (7.35-7.45); iSTAT Arterial Blood Gas pO2 122 mmHg (80-95); iSTAT Arterial Blood Gas pO2 C 116; iSTAT Carbon Dioxide 7 mmol/L (24-31); iSTAT Hematocrit 19 % (42-52); iSTAT Hemoglobin 6.5 g/dl (14.0-18.0); iSTAT Potassium 4.9 mmol/L (3.3-5.0); iSTAT Site R Brachial; iSTAT Sodium 139 mmol/L (135-144)
[2022-08-13] MEDS ORDERED: LINEZOLID 600 MG/300 ML D5W IV SCH (00:15)
[2022-08-13] MEDS: LINEZOLID 600 MG/300 ML BAG IV SCH ×2 (00:17→12:49)
[2022-08-13] MEDS: SODIUM BICARBONATE 8.4% 150 MEQ in DEXTROSE 5% 1,000 ML IV SCH ×2 (00:17→08:53)
[2022-08-13] MEDS: MAGNESIUM SULFATE / D5W 1 GM/100 ML BAG IV SCH (02:17)
[2022-08-13 02:23] LABS: Hematocrit (blood only) 20.2 % (42.0-52.0); Hemoglobin 6.9 g/dl (14.0-18.0); Mean Corpuscular Hemoglobin 30.5 pg (25.0-34.0); Mean Corpuscular Hgb Conc 34.2 g/dL (32.0-36.0); Mean Corpuscular Volume 89.4 fL (80.0-100.0); Mean Platelet Volume 10.7 fL (9.4-12.4); Platelet Count 106 K/uL (130-400); RDW Coefficient of Variation 15.1 % (11.5-14.5); RDW Standard Deviation 49.1 fL (36.4-46.3); Red Blood Count 2.26 M/uL (4.70-6.10); White Blood Count 7.37 K/ul (4.8-10.8)
[2022-08-13 02:25] LABS: Basophils # (auto) 0.03 K/uL (0-0.2); Basophils % (auto) 0.4 %; Echinocytes 1+; Eosinophils # (auto) 0.26 K/uL (0-0.50); Eosinophils % (auto) 3.5 %; Immature Granulocytes # (auto) 0.09 K/uL (0.01-0.20); Immature Granulocytes % (auto) 1.2 %; Lymphocytes # (auto) 0.56 K/uL (1.2-3.4); Lymphocytes % (auto) 7.6 %; Monocytes # (auto) 0.72 K/uL (0.11-0.59); Monocytes % (auto) 9.8 %; Neutrophils # (auto) 5.71 K/uL (1.40-6.50); Neutrophils % (auto) 77.5 %
[2022-08-13 02:26] LABS: Albumin Globulin Ratio 0.9 (0.9-2); Albumin Level 3.1 gm/dl (3.4-5.0); Bilirubin,Total 0.3 mg/dl (0.2-1.0); Calcium 5.5 mg/dl (8.6-10.3); Creatinine Clr Calc Pharmacy 5.2 ml/min; Est GFR (African American) 4.4 ml/min; Est GFR (Non-African American) 3.8 ml/min; Globulin 3.3 gm/dl (2.5-4.0); Magnesium 1.5 mg/dl (1.7-2.4); Potassium 4.4 mmol/L (3.5-5.1); Total Protein 6.4 gm/dl (6.0-8.3)
[2022-08-13] MEDS ORDERED: SODIUM CHLORIDE 0.9% 250 ML IV PRN ×4 (02:32→18:00)
[2022-08-13 02:44] LABS: BUN Creatinine Ratio 13.4 (10-20)
[2022-08-13 02:51] LABS: INR 5.3 (0.9-1.1); Partial Thromboplastin Ratio 3.1; Prothrombin Time 52.6 Seconds (9.0-12.0)
[2022-08-13 02:57] LABS: Partial Thromboplastin Time 87.8 Seconds (21.0-31.0)
--- NOTE | 2022-08-13 02:57 | Communication Note ---
Date of Service: August 13, 2022 Overnight Hgb 6.9. Blood consent obtained. 1unit given. Resident Activity Tracking Resident Involvement: Resident Care Provided Care Provided: Adult Hospital Medicine
--- NOTE | 2022-08-13 07:46 | Ultrasound Report ---
RENAL ULTRASOUND CLINICAL HISTORY: Severe uremia. COMPARISON STUDY: Renal ultrasound April 23, 2022 and MRI of the abdomen May 11, 2022. TECHNIQUE: Sonography of the kidneys and the urinary bladder was performed. FINDINGS: The right kidney measures 10.9 x 4.5 x 3.9 cm and the left kidney measures 10.8 x 4.4 cm. A s before, the kidneys are echogenic. Renal size is normal. There is mild renal cortical thinning bila terally. There is no hydronephrosis. A few cysts within the kidneys are noted. The largest is a 3.2 c m cyst within the upper pole of the right kidney. No renal calculi or masses are identified. Bladder contains a Chandler balloon. IMPRESSION: 1. No hydronephrosis. 2. Increased renal echogenicity, similar to ultrasound of April 23, 2022. ACT 112: Negative or not required by law. Electronically signed by: Jason Melendez M.D. 08/13/2022 7:45 AM
[2022-08-13] MEDS: SODIUM BICARBONATE 650 MG TAB PO SCH ×2 (08:21→19:42)
[2022-08-13] MEDS: CHOLECALCIFEROL 1,000 UNITS 25 MCG TAB PO SCH (08:22)
[2022-08-13] MEDS: PANCREAZE (LIPASE 10,500U) CAP PO SCH ×3 (08:23→19:27)
[2022-08-13 08:40] LABS: Base Excess VBG -14.3 mEq/L; HCO3 VBG 10 mmol/L; Oxygen Saturation VBG 96.3 %; PCO2 VBG 20 mmHg (38-50); PO2 VBG 66 mmHg
[2022-08-13] MEDS ORDERED: CALCIUM GLUCONATE 10% 2,000 MG in DEXTROSE 5% 50 ML IV ONE (08:40)
[2022-08-13] MEDS ORDERED: STAT IV STA ×2 (08:40→16:17)
[2022-08-13 09:00] LABS: Basophils # (auto) 0.03 K/uL (0-0.2); Basophils % (auto) 0.5 %; Eosinophils # (auto) 0.45 K/uL (0-0.50); Hematocrit (blood only) 21.8 % (42.0-52.0); Hemoglobin 7.5 g/dl (14.0-18.0); Immature Granulocytes # (auto) 0.06 K/uL (0.01-0.20); Immature Granulocytes % (auto) 0.9 %; Lymphocytes # (auto) 0.65 K/uL (1.2-3.4); Mean Corpuscular Hemoglobin 30.2 pg (25.0-34.0); Mean Corpuscular Hgb Conc 34.4 g/dL (32.0-36.0); Mean Corpuscular Volume 87.9 fL (80.0-100.0); Monocytes # (auto) 0.49 K/uL (0.11-0.59); Monocytes % (auto) 7.6 %; Neutrophils # (auto) 4.79 K/uL (1.40-6.50); Platelet Count 108 K/uL (130-400); RDW Coefficient of Variation 14.6 % (11.5-14.5); RDW Standard Deviation 47.4 fL (36.4-46.3); Red Blood Count 2.48 M/uL (4.70-6.10); White Blood Count 6.47 K/ul (4.8-10.8)
[2022-08-13] MEDS ORDERED: CALCITRIOL 0.25 MCG CAPSULE PO SCH (09:00)
[2022-08-13 09:22] LABS: RBC Morphology Unremarkable
[2022-08-13 09:26] LABS: INR 2.3 (0.9-1.1); Partial Thromboplastin Ratio 2.2; Prothrombin Time 23.5 Seconds (9.0-12.0)
[2022-08-13 09:27] LABS: Partial Thromboplastin Time 63.1 Seconds (21.0-31.0)
[2022-08-13 09:42] LABS: Albumin Globulin Ratio 0.9 (0.9-2); Bilirubin,Total 0.5 mg/dl (0.2-1.0); Calcium 5.5 mg/dl (8.6-10.3); Creatinine Clr Calc Pharmacy 5.7 ml/min; Est GFR (African American) 4.8 ml/min; Est GFR (Non-African American) 4.2 ml/min; Globulin 3.3 gm/dl (2.5-4.0); Magnesium 1.7 mg/dl (1.7-2.4); Potassium 3.7 mmol/L (3.5-5.1); Total Protein 6.3 gm/dl (6.0-8.3)
[2022-08-13 09:43] LABS: Carcinoembryonic Antigen 3.6 ng/ml (0-2.5)
[2022-08-13] MEDS ORDERED: ERGOCALCIFEROL 50,000 UNITS 1250 MCG CAP PO ONE (13:45)
[2022-08-13 14:27] LABS: Base Excess VBG -11.5 mEq/L; HCO3 VBG 13 mmol/L; Oxygen Saturation VBG 80.7 %; PCO2 VBG 23 mmHg (38-50); PO2 VBG 44 mmHg; pH VBG 7.35 (7.36-7.41)
[2022-08-13 14:34] LABS: Basophils # (auto) 0.03 K/uL (0-0.2); Basophils % (auto) 0.4 %; Eosinophils # (auto) 0.41 K/uL (0-0.50); Eosinophils % (auto) 5.8 %; Hemoglobin 7.2 g/dl (14.0-18.0); Immature Granulocytes # (auto) 0.05 K/uL (0.01-0.20); Immature Granulocytes % (auto) 0.7 %; Lymphocytes # (auto) 0.42 K/uL (1.2-3.4); Lymphocytes % (auto) 5.9 %; Mean Corpuscular Hemoglobin 30.3 pg (25.0-34.0); Mean Platelet Volume 11.5 fL (9.4-12.4); Monocytes # (auto) 0.53 K/uL (0.11-0.59); Monocytes % (auto) 7.5 %; Neutrophils # (auto) 5.64 K/uL (1.40-6.50); Neutrophils % (auto) 79.7 %; Platelet Count 109 K/uL (130-400); RDW Coefficient of Variation 14.9 % (11.5-14.5); RDW Standard Deviation 45.8 fL (36.4-46.3); Red Blood Count 2.38 M/uL (4.70-6.10); White Blood Count 7.08 K/ul (4.8-10.8)
--- NOTE | 2022-08-13 14:42 | Nephrology Consultation ---
Date of Consultation August 13, 2022 Assessment & Plan (1) ANDREA (acute kidney injury): (2) Acute uremia: (3) Acute dehydration: (4) Anemia: (5) Hypocalcemia: (6) Metabolic acidosis: Plan Critically ill 77 yo male with PMH significant for stage IV CKD baseline creatinine lately around 4.0 with repeated history of ANDREA in the setting of refractory diarrhea and volume depletion requiring hospitalization in February and April 2022. admitted with generalized weakness, p.o. intake and found to have ANDREA, metabolic acidosis hypocalcemia and anemia. Has been on bicarb drip and empiric antibiotic since admission. Has been on bicarb drip since yesterday however creatinine still above 10, BUN above 140 but electrolyte remained critically abnormal including high anion gap metabolic acidosis, hypocalcemia, hyperphosphatemia and anemia. --Will get a temporary dialysis catheter and plan for 3 hours if possible otherwise at least 2 hours dialysis mainly to improve the electrolyte abnormality. Will give 1 unit of blood transfusion during dialysis. --monitor renal function and electrolyte closely. --dose medications for eGFR less than 10, Left arm nephrology precaution. -- Start on Renvela 1 tab t.i.d. with meal. -- iron study, Epogen 91274 units x 1 dose Thank you for allowing me to participate in your patient's care. It was a pleasure to see Messi. History of Present Illness Reason for Consultation: ANDREA, metabolic acidosis, hypocalcemia, anemia. Attending Physician: Dylon Contreras DO History of Present Illness Mr. Messi Carreon a 77-year-old male With past medical history significant for stage IV CKD with repeated episodes of ANDREA with volume depletion, admitted with acute kidney injury and multiple electrolyte abnormality. nephrology consult was requested for management of above. EMR records reviewed in detail during patient's visit. Messi who presents to ER Yesterday with complain of tiredness and generalized weakness and feeling poorly for several days. He has been having poor p.o. intake as things has not been tasting well. Did not have any nausea, vomiting or diarrhea at home however he reports having several episodes of diarrhea just this morning. Did not have fever or chills. He reports voiding normally at home. Has not been taking NSAID at home. In ER, Initial blood pressure was low at 86/42.His hemoglobin was 6.9. creatinine was 11.4, BUN 152, sodium 136, potassium 4.4, chloride was 107, bicarbonate 8 anion gap of 14, calcium was 6, magnesium 1.5. Urinalysis with 2+ bacteria. chest x-ray was otherwise unremarkable. Renal ultrasound was negative for postrenal obstruction. he was also noted to have leukocytosis.. Troponin was mildly elevated. He was started on sodium bicarb drip, cefepime and linezolid empirically. He had 2 prolonged hospitalization 1 in February and then again in April of 2022 for ANDREA secondary to volume depletion with recurrent episodes of diarrhea related to [id number] disease. Kidney function eventually Improve slightly and baseline creatinine lately around 4.0 His diarrhea improved sig nificantly with Creon and Imodium. He declined colonoscopy. At home he was on Lasix for chronic lower extremity edema with mild CHF. Abdominal MRI on 05/11/2022 showed bilateral moderate hydroureteronephrosis and a Chandler catheter was placed on 06/01/2022, since then he has been following with Urology and continue to have the Chandler catheter in place. Past medical history also significant for hypertension, history of AFib, mitral valve replacement, BPH, history of multiple myeloma status post bone marrow transplant complicated by [id number]-lrsl disease. Overall he has been feeling poorly with generalized fatigue. Has Chandler catheter with clear urine. Allergies Allergy/AdvReac Type Severity Reaction Status Date / Time ASHLEY Inhibitors AdvReac Intermediate COUGH Verified 08/12/22 16:47 acetic acid AdvReac Intermediate Swelling Verified 08/12/22 16:47 of Lip/Tongue/Throat Home Medications Medication Instructions Recorded Confirmed Type simvastatin 20 mg tablet 20 mg PO DAILY #90 tabs 08/11/21 08/12/22 Rx cholecalciferol (vitamin D3) 25 2,000 unit PO QAM #30 caps 04/08/22 08/12/22 Rx mcg (1,000 unit) capsule sodium bicarbonate 650 mg tablet 1,300 mg PO BID #60 tabs 04/08/22 08/12/22 Rx metoprolol tartrate 50 mg tablet 50 mg PO BID #60 tabs 04/19/22 08/12/22 Rx lvquov-vzkawedq-jbsbima 1 cap PO TIDM #90 caps 05/14/22 08/12/22 Rx 36,000-114,000-180,000 unit capsule,delay rel (Creon) loperamide 2 mg capsule 2 mg PO Q3H PRN loose stool #30 07/01/22 08/12/22 Rx caps calcitriol 0.25 mcg capsule 0.25 mcg PO DAILY #30 caps 07/07/22 08/12/22 Rx tamsulosin 0.4 mg capsule 0.4 mg PO HS #30 caps 07/07/22 08/12/22 Rx potassium chloride 20 mEq oral 20 meq PO DAILY #30 ea 07/28/22 08/12/22 Rx packet warfarin 5 mg tablet 5 mg PO .COMPLEX #30 tabs 08/02/22 08/12/22 Rx furosemide 80 mg tablet 80 mg PO BID 08/12/22 08/12/22 History Patient History Medical History (Updated 08/13/22 @ 14:44 by Mary Jane Wheeler MD) Anemia Atrial fibrillation Diarrhea Dyslipidemia Elevated prostate specific antigen (PSA) Hypertension Hypokalemia Metabolic acidosis Multiple myeloma Supratherapeutic INR Surgical History H/O stem cell transplant S/P AVR (aortic valve replacement) Family History Mother Alzheimer disease Sister Breast cancer Father Myocardial infarction Denies family history of Ovarian cancer Prostate cancer Colorectal cancer Social History Smoking Status: Never smoker Second Hand Exposure: No; Do You Dip or Chew Tobacco: No; Tobacco Cessation Education Requested by Patient: No Hx Alcohol Use: No Hx Substance Use: No Preferred Language: Brazilian Communication Ability: Effective Viscosity Worker Required: No Beliefs That Will Affect Care: None marital status: Current Living Situation: Spouse Current Living Situation Comment: with current occupational status: employed 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 Physical Exam Constitutional: WD/WN, vitals as above + ill appearing; no acute distress Eyes: + anicteric sclerae Neck: normal visual inspection Thyroid: no thyromegaly Respiratory: no respiratory distress Auscultation: lungs clear to auscultation bilaterally Cardiovascular: Rate/Rhythm: regular rate and + irregularly irregular Extremities: no edema Gastrointestinal (Abdomen): Inspection/Auscultation: abdomen normal to inspection and normal bowel sounds Percussion/Palpation: abdomen soft; abdomen nontender Musculoskeletal: Extremities: extremities normal to inspection Skin: no rashes, warm and dry Neurologic: no focal motor deficits and not confused Motor/Sensory: + isaias mor Psychiatric: Orientation: alert and oriented x 3 Affect: euthymic affect Results & Data Vital Signs (Past 12 Hours) Vital Signs Temp Pulse Pulse Resp BP BP Pulse Ox 08/13/22 13:22 36.2 C L 72 18 114/57 L 98 08/13/22 11:41 36.2 C L 70 16 125/61 99 08/13/22 11:12 62 08/13/22 07:36 35 C L 61 18 113/59 L 98 08/13/22 08:03 35 C L 61 18 113/59 L 98 08/13/22 06:59 64 16 115/63 100 08/13/22 03:15 36.4 C L 65 16 114/57 L 100 08/13/22 05:59 36.4 C L 60 16 101/51 L 100 08/13/22 04:59 60 16 116/67 100 08/13/22 04:29 60 18 114/51 L 100 08/13/22 04:14 36.4 C L 62 18 110/60 100 08/13/22 03:59 36.4 C L 65 18 121/54 L 100 08/13/22 03:38 36.4 C L 63 18 121/54 L 100 O2 Del Method 08/13/22 13:22 Room Air 08/13/22 11:41 Room Air 08/13/22 11:12 08/13/22 07:36 08/13/22 08:03 Room Air 08/13/22 06:59 08/13/22 03:15 Room Air 08/13/22 05:59 08/13/22 04:59 08/13/22 04:29 08/13/22 04:14 08/13/22 03:59 08/13/22 03:38 PG Care Time/CCT Total # of Minutes Spent Total Time Spent with Patient: Total time spent is greater than 50% in coordination of care (as documented) at patient's floor/unit and/or counseling patient: Coding Level of Care Code 09055 IN/OBS CONSULT LVL 5,80M Diagnoses ANDREA (acute kidney injury) N17.9 Acute uremia N19 Acute dehydration E86.0 Anemia D64.9 Hypocalcemia E83.51 Metabolic acidosis E87.20
[2022-08-13 14:46] LABS: INR 1.9 (0.9-1.1); Partial Thromboplastin Ratio 1.9; Prothrombin Time 19.6 Seconds (9.0-12.0)
[2022-08-13] MEDS: CALCIUM CARBONATE 500 MG CHEWABLE TAB PO SCH ×2 (14:48→19:42)
[2022-08-13 14:51] LABS: Albumin Level 2.9 gm/dl (3.4-5.0); BUN Creatinine Ratio 13.6 (10-20); Calcium 5.8 mg/dl (8.6-10.3); Creatinine Clr Calc Pharmacy 5.7 ml/min; Est GFR (African American) 4.8 ml/min; Est GFR (Non-African American) 4.1 ml/min; Magnesium 1.5 mg/dl (1.7-2.4); Phosphorus 11.4 mg/dl (2.5-4.9); Potassium 3.4 mmol/L (3.5-5.1)
[2022-08-13 15:32] LABS: Partial Thromboplastin Time 52.4 Seconds (21.0-31.0)
[2022-08-13] MEDS ORDERED: CEFEPIME 1,000 MG in SYRINGE 0 ML IV SCH (16:00)
[2022-08-13] MEDS ORDERED: VECURONIUM BROMIDE 10 MG VIAL IV STA (16:17)
[2022-08-13] MEDS ORDERED: fentaNYL BOLUS from BAG IV PRN (16:17)
[2022-08-13] MEDS ORDERED: PROPOFOL BOLUS FROM BAG IV PRN (16:17)
[2022-08-13] MEDS ORDERED: STAT IV Infusion **Titration per Protocol STA ×2 (16:17)
--- NOTE | 2022-08-13 16:25 | Hospitalist Progress Note ---
Date of Service August 13, 2022 Assessment & Plan (1) Acute uremia: Plan: Acute unstable, not improving with conservative careagree with nephrology that acute hemodialysis appears to be indicated, particularly given his very severe and fairly refractory acidosis. Discussed with market editor to assist with gaining access for hemodialysishe asked for 2 units of FFPthese have been ordered, nephrology asked for a unit of packed red cells to be given during dialysisthis has been ordered as well. Fortunately no hyperkalemia or pulmonary edema, unfortunately has very severe electrolyte disturbances particularly a severe metabolic acidosis raising alarm. Nephrology had discussed with him earlierat which point he noted that he was willing to do acute dialysis if needed, whenever the moment came that unfortunately was declared, he was much more reticent. We discussed multiple times over about a 45-minute. And he was able to weigh risk and benefit and consent to proceed. We discussed that right now this is only thinking about acute dialysisthat its not clear that he will need it chronically or not, but that would really be a decision that is not to be weighed right now, but rather to be weighed when that moment arises if it does. (2) Acute dehydration: Plan: IV fluids Held Lasix and Potassium (3) Hematuria, microscopic: Plan: Chandler irritation versus infectiongiven that he does have a little bit of discharge and the hematuria, and describing the Chandler is being uncomfortablefor now we will leave him on the antibiotics until sensitivities are back, i.e. we will treat this as mild but symptomatic complicated cystitis associated with chronic indwelling Chandler catheter. (4) Urinary retention: Plan: This is the reason for his chronic Chandler (5) Chronic kidney disease: Plan: see above (6) Pancreatic lesion: Plan: Fortunately biopsied and was consistent with a cyst (7) Secondary hyperparathyroidism: Plan: Significant hypocalcemia nowreplacing calcium, replacing vitamin D, appreciate nephrology assistance on this as well. Last PTH 373 was 894 in Mar (8) S/P AVR (aortic valve replacement): Plan: chronic [facility] Valve - Continue Coumadin chronically -Currently INR is highdaily follow-up and active management, but Coumadin on hold Last echo April EF 35-40% severe LAD territory wall motion abnormality (9) Hypertension: Plan: chronic stable on metoprolol (10) Elevated prostate specific antigen (PSA): Plan: chronic follows with urology (11) Paroxysmal A-fib: Plan: Chronic, rate controlled, anticoagulated on coumadin (12) Anemia: Plan: Chronic Likely mixed anemia of chronic disease and iron deficiency Folate 6, will need to check B12 Nephrology planning to give a unit of packed red cells during dialysis (13) Multiple myeloma: Plan: Chronic S/P autologous transplant (not on immunosuppressants)nephrology noted suspicion that diarrhea relates to [id number] Plan Transfer to ICU, acute dialysis today As far as updating his wifeinitially was going to call her care [id number], then he declined having me call her, then whenever I return for revisit he was talking to her on the phone, and while he did not handmade the phone or have me talk to her directly, it is clear that she was apprised of what was going on Admission and Anticipated Discharge Date Admission Date: August 12, 2022 Subjective feels a little weak otherwise no significant acute complaints - but serious electrolyte disturbances discussed. Case discussed throughout the day with nephrology and then market editor. Discussed with patient multiple times throughout the day as well. Initially he was asked to update his , and then whenever things turned more serious and he was looking at acute hemodialysis, as I was talking to him he declined having me call his whenever I directly asked if I should or if we should get his on the phone for us to all talk together. Later on revisit his was essentially screaming in his ear to do acute dialysis. Some diarrhea todaythe first in quite a while as far as he recalls. Review of Systems Review of Systems: All systems reviewed & are unremarkable except as noted in HPI & below Physical Exam Physical Exam: Fatigue awake and alert no distress. HEENT normocephalic atraumatic mucous membranes moist. Cardio regular with click. Lungs clear to auscultation bilaterally no rales rhonchi or wheezes good effort. Abdomen is soft nondistended nontender no masses organomegaly. Extremities without cyanosis or clubbing trace bilateral lower extremity edema and trace minimal equal calf tenderness no cords no erythema. Results & Data Results & Data Vital Signs (Past 12 Hours) Vital Signs Temp Pulse Pulse Resp BP BP Pulse Ox 08/13/22 13:22 97.2 F L 72 18 114/57 L 98 08/13/22 11:41 97.2 F L 70 16 125/61 99 08/13/22 11:12 62 08/13/22 07:36 95 F L 61 18 113/59 L 98 08/13/22 08:03 95 F L 61 18 113/59 L 98 08/13/22 06:59 64 16 115/63 100 08/13/22 05:59 97.5 F L 60 16 101/51 L 100 08/13/22 04:59 60 16 116/67 100 08/13/22 04:29 60 18 114/51 L 100 O2 Del Method 08/13/22 13:22 Room Air 08/13/22 11:41 Room Air 08/13/22 11:12 08/13/22 07:36 08/13/22 08:03 Room Air 08/13/22 06:59 08/13/22 05:59 08/13/22 04:59 08/13/22 04:29 PG Care Time/CCT Total # of Minutes Spent Total Time Spent with Patient: Total time spent is greater than 50% in coordination of care (as documented) at patient's floor/unit and/or counseling patient: Coding Level of Care Code 26958 SUB INP/OBS CARE 3/50MIN Diagnoses Acute uremia N19 Acute dehydration E86.0 Hematuria, microscopic R31.29 Urinary retention R33.9 Chronic kidney disease N18.9 Pancreatic lesion K86.9 Secondary hyperparathyroidism N25.81 S/P AVR (aortic valve replacement) Z95.2 Hypertension I10 Elevated prostate specific antigen (PSA) R97.20 Paroxysmal A-fib I48.0 Anemia D64.9 Multiple myeloma C90.00
[2022-08-13] MEDS ORDERED: ARTIFICIAL TEARS OP OINT 3.5 GM TUBE OP SCH (16:30)
[2022-08-13] MEDS ORDERED: fentaNYL citrate 2,500 MCG/250 ML BAG IV SCH (16:30)
[2022-08-13] MEDS ORDERED: propofoL 1,000 MG/100 ML VIAL IV SCH (16:30)
[2022-08-13] MEDS ORDERED: CISATRACURIUM BESYLATE 40 MG in DEXTROSE 5% 80 ML IV SCH (16:30)
[2022-08-13] MEDS ORDERED: EPOETIN ALFA 40,000 UNITS/ML VIAL IV ONE (17:00)
--- NOTE | 2022-08-13 18:00 | Procedure Note ---
Procedure Note Date of Service August 13, 2022 Note Left FEMORAL 12 SPANISH, 20 CM HEMODIALYSIS LINE PROCEDURE NOTE: Procedure: Left hemodialysis catheter Indication: Central Drug Administration, Poor Venous Access, Multiple Lab Draws Necessary, etc. Anesthesia: 5 mL lidocaine 1% Consent was signed and placed on the chart prior to procedure. Indication, risks, and benefits were explained at length. A time-out was completed verifying correct patient, procedure, site, positioning, and implants(s) or special equipment if applicable. Patients left groin was cleansed and draped in the typical sterile fashion using Chloraprep. The Femoral Vein and Femoral Artery were identified using ultrasound. The superficial tissue was anesthetized using 5 mL of 1% lidocaine without epinephrine under direct visualization with the ultrasound. After adequate anesthetization was achieved, the Femoral Vein was cannulated under direct ultrasound guidance using an introducer needle on a syringe. Good venous blood return was maintained prior to removal of syringe from introducer needle. Using Seldinger Technique, a guide wire was advanced through the introducer needle without resistance. The introducer needle was removed and ultrasound images were obtained of the guide wire within the Femoral Vein and saved to the patients medical record. A small incision was made in penetrating fashion at the guide wire insertion site utilizing an 11 blade scalpel. The dilator was advanced to the vessel without resistance. The dilator was exchanged for the double lumen catheter which was advanced into the vessel without resistance. The guide wire was removed intact from the catheter without issue. Claves were placed on each catheter tip with confirmation of good blood flow from each lumen. Each port was easily flushed with sterile saline. The catheter was placed at the hub and s utured in place. BioPatch was applied to the catheter and a sterile Tegaderm dressing was applied over the catheter with careful attention to sterility. Patient tolerated procedure well. No immediate complications were met. Images obtained are saved for permanent record Procedural Ultrasound Guidance utilized. Coding CPT Codes Tubes, Drains, and Vasc Access - Tubes, Drains, and Vasc Access: [id number] Insertion of cannula for hemodialysis ([id number]) Tubes, Drains, and Vasc Access - Tubes, Drains, and Vasc Access: [id number] Ultrasound Guidance For Vascular ([id number]) [facility] [place] Codes (Charges) Tubes, Drains, and Vasc Access Procedure 1: Tubes, Drains, and Vasc Access: [id number] Insertion of cannula for hemodialysis Procedure 2: Tubes, Drains, and Vasc Access: [id number] Ultrasound Guidance For Vascular
[2022-08-13 18:12] LABS: Base Excess VBG -9.5 mEq/L; HCO3 VBG 14 mmol/L; PCO2 VBG 26 mmHg (38-50); PO2 VBG 41 mmHg; pH VBG 7.35 (7.36-7.41)
--- NOTE | 2022-08-13 18:19 | Critical Care Consultation ---
Date of Consultation August 13, 2022 Assessment & Plan (1) Metabolic acidosis: (2) Acute renal failure: (3) Complicated urinary tract infection: Plan I placed a left femoral hemodialysis catheter and the patient will be urgently started on hemodialysis. Hemodialysis nurse was at bedside. Continue broad- spectrum antibiotics were urosepsis. Continue to trend hemoglobin closely. Patient with evidence of pancytopenia possibly due to recurrence of myeloma, renal failure and sepsis. Unfortunately, the patient needs to be maintained on anticoagulation due to mechanical aortic valve. We will consult medical oncology to assist with his pancytopenia. We will obtain an echo to evaluate the valves integrity. Transfuse to maintain hemoglobin above 7 and platelet count above 50,000. Check peripheral smear for tickborne illnesses. Check Lyme antibodies given pancytopenia. Start doxycycline. Check ferritin and triglyceride level to screen for HLH. PTT elevated. Sepsis coagulopathy, atypical HUS and TTP on the differential as well. Peripheral smear checked yesterday did not reveal clear signs of hemolysis. Pathology felt that this was secondary to chronic iron deficiency anemia. CRITICAL CARE TIME - I have personally spent 48 minutes of critical care time in the direct management of this patient. This is a life/limb threatening event. This includes time spent evaluating patient, direct bedside care, chart review, placing orders, interpretation of diagnostic studies, discussion with consultants, patient, and family members, as well as other required patient management activities. This time is exclusive of all separately billable procedures, and teaching time and separate from and in addition to any other critical care service time. History of Present Illness Reason for Consultation: Need for hemodialysis and severe acidosis Attending Physician: Dylon Contreras DO History of Present Illness 77-year-old male with history of paroxysmal atrial fibrillation, cardiomyopathy, multiple myeloma, CKD stage V and pancreatic cyst who presented to the hospital yesterday due to loss of appetite and weakness. He was found to be severely acidotic. ICU transfer today was requested due to need for urgent hemodialysis. Patient endorses weakness and fatigue. 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 He lives with his in [place] and is also fairly independent otherwise. He denies any chest pain, fevers or chills at this time. Patient was started on linezolid and cefepime by the hospitalist service. Urine cultures are growing gram-positive cocci and gram-negative bacilli. Allergies Allergy/AdvReac Type Severity Reaction Status Date / Time ASHLEY Inhibitors AdvReac Intermediate COUGH Verified 08/12/22 16:47 acetic acid AdvReac Intermediate Swelling Verified 08/12/22 16:47 of Lip/Tongue/Throat Home Medications Medication Instructions Recorded Confirmed Type simvastatin 20 mg tablet 20 mg PO DAILY #90 tabs 08/11/21 08/12/22 Rx cholecalciferol (vitamin D3) 25 2,000 unit PO QAM #30 caps 04/08/22 08/12/22 Rx mcg (1,000 unit) capsule sodium bicarbonate 650 mg tablet 1,300 mg PO BID #60 tabs 04/08/22 08/12/22 Rx metoprolol tartrate 50 mg tablet 50 mg PO BID #60 tabs 04/19/22 08/12/22 Rx fvizap-duxjuswz-sgxahbv 1 cap PO TIDM #90 caps 05/14/22 08/12/22 Rx 36,000-114,000-180,000 unit capsule,delay rel (Creon) loperamide 2 mg capsule 2 mg PO Q3H PRN loose stool #30 07/01/22 08/12/22 Rx caps calcitriol 0.25 mcg capsule 0.25 mcg PO DAILY #30 caps 07/07/22 08/12/22 Rx tamsulosin 0.4 mg capsule 0.4 mg PO HS #30 caps 07/07/22 08/12/22 Rx potassium chloride 20 mEq oral 20 meq PO DAILY #30 ea 07/28/22 08/12/22 Rx packet warfarin 5 mg tablet 5 mg PO .COMPLEX #30 tabs 08/02/22 08/12/22 Rx furosemide 80 mg tablet 80 mg PO BID 08/12/22 08/12/22 History Patient History Medical History (Updated 08/13/22 @ 18:08 by Abebe Johns MD) Anemia Atrial fibrillation Complicated urinary tract infection Diarrhea Dyslipidemia Elevated prostate specific antigen (PSA) Hypertension Hypokalemia Metabolic acidosis Multiple myeloma Supratherapeutic INR Surgical History H/O stem cell transplant S/P AVR (aortic valve replacement) Family History Mother Alzheimer disease Sister Breast cancer Father Myocardial infarction Denies family history of Ovarian cancer Prostate cancer Colorectal cancer Social History Smoking Status: Never smoker Second Hand Exposure: No; Do You Dip or Chew Tobacco: No; Tobacco Cessation Education Requested by Patient: No Hx Alcohol Use: No Hx Substance Use: No Preferred Language: Thai Communication Ability: Effective Mineralogy Professor Required: No Beliefs That Will Affect Care: None marital status: Current Living Situation: Spouse Current Living Situation Comment: with current occupational status: employed 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 Patient is in no apparent distress. Patient is well-developed. Eyes: Pupils are equal round and reactive to light. Conjunctivae are normal. Anicteric sclera. Ears nose, mouth and throat: Mallampati class 2. Normal posterior oropharynx. Uvula is midline. Neck: Trachea is midline. Visual inspection is normal. Respiratory: Clear to auscultation bilaterally. No use of accessory muscles. No significant clubbing noted. Cardiovascular: Regular rate and rhythm. No murmurs. No edema. Gastrointestinal: Normal bowel sounds, soft, nontender and nondistended. No hepatosplenomegaly noted. Musculoskeletal: No cyanosis. Patient is able to move all extremities. Strength is 5 out of 5 in the upper and lower extremities. Skin: No rashes, warm dry and intact. Neurologic: No obvious focal neurological deficits seen. Psychiatric: Alert and oriented x3 with a euthymic affect. Results & Data Results & Data Vital Signs (Past 12 Hours) Vital Signs Temp Pulse Pulse Resp BP BP Pulse Ox 08/13/22 16:40 36.4 C L 71 18 133/61 99 08/13/22 13:22 36.2 C L 72 18 114/57 L 98 08/13/22 11:41 36.2 C L 70 16 125/61 99 08/13/22 11:12 62 08/13/22 07:36 35 C L 61 18 113/59 L 98 08/13/22 08:03 35 C L 61 18 113/59 L 98 08/13/22 06:59 64 16 115/63 100 O2 Del Method 08/13/22 16:40 Room Air 08/13/22 13:22 Room Air 08/13/22 11:41 Room Air 08/13/22 11:12 08/13/22 07:36 08/13/22 08:03 Room Air 08/13/22 06:59 Coding Level of Care Code 60034 CRITICAL CARE 1ST 30-74M Diagnoses Metabolic acidosis E87.20 Acute renal failure N17.9 Complicated urinary tract infection N39.0
[2022-08-13] MEDS: SEVELAMER HCL 800 MG TABLET PO SCH (19:27)
[2022-08-13] MEDS: DOXYCYCLINE HYCLATE 100 MG in DEXTROSE 5% 100 ML IV SCH (19:42)
[2022-08-13] MEDS: TAMSULOSIN HCL 0.4 MG CAP PO SCH (19:42)
[2022-08-13] MEDS: ACETAMINOPHEN 325 MG TAB PO PRN (20:42)
[2022-08-13 21:19] LABS: Base Excess VBG 4.9 mEq/L; HCO3 VBG 28 mmol/L; Oxygen Saturation VBG 61.6 %; PCO2 VBG 35 mmHg (38-50); PO2 VBG 30 mmHg; pH VBG 7.51 (7.36-7.41)
[2022-08-13] MEDS: ONDANSETRON INJ 2 MG/ML 2 ML VIAL IV PRN (21:36)
[2022-08-13 22:12] LABS: Ferritin 1186.3 ng/ml (8-388)
[2022-08-13 22:19] LABS: Lyme Ab IgG w/WB Rflx Negative (Negative); Lyme Ab IgM w/WB Rflx Negative (Negative)
[2022-08-14] MEDS ORDERED: LOPERAMIDE HCL 2 MG CAP PO STA ×2 (00:33→23:42)
[2022-08-14] MEDS: LINEZOLID 600 MG/300 ML BAG IV SCH ×2 (00:38→12:13)
[2022-08-14] MEDS: ONDANSETRON INJ 2 MG/ML 2 ML VIAL IV PRN ×2 (04:08→16:10)
[2022-08-14 04:48] LABS: Hematocrit (blood only) 23.5 % (42.0-52.0); Hemoglobin 8.4 g/dl (14.0-18.0); Mean Corpuscular Hemoglobin 29.6 pg (25.0-34.0); Mean Corpuscular Hgb Conc 35.7 g/dL (32.0-36.0); Mean Corpuscular Volume 82.7 fL (80.0-100.0); Mean Platelet Volume 10.8 fL (9.4-12.4); Platelet Count 111 K/uL (130-400); RDW Coefficient of Variation 15.3 % (11.5-14.5); RDW Standard Deviation 46.5 fL (36.4-46.3); Red Blood Count 2.84 M/uL (4.70-6.10)
[2022-08-14 04:50] LABS: Albumin Level 2.9 gm/dl (3.4-5.0); Anion Gap 15 (3-11); BUN Creatinine Ratio 12.1 (10-20); Blood Urea Nitrogen 75 mg/dl (6-23); Calcium 6.8 mg/dl (8.6-10.3); Carbon Dioxide 24 mmol/L (21-32); Chloride 101 mmol/L (98-107); Creatinine Clr Calc Pharmacy 9.7 ml/min; Est GFR (African American) 9.2 ml/min; Est GFR (Non-African American) 7.9 ml/min; Glucose 149 mg/dl (70-99(Fasting)); Iron 97 mcg/dl (35-175); Phosphorus 5.8 mg/dl (2.5-4.9); Sodium 140 mmol/L (136-145); Unsaturated Iron Binding Cap < 55 mcg/dl (155-355)
[2022-08-14 05:13] LABS: Ferritin 1308.4 ng/ml (8-388)
[2022-08-14] MEDS: DOXYCYCLINE HYCLATE 100 MG in DEXTROSE 5% 100 ML IV SCH ×2 (06:05→16:10)
--- NOTE | 2022-08-14 07:32 | Hospitalist Progress Note ---
Date of Service August 14, 2022 Assessment & Plan (1) ANDREA (acute kidney injury): Plan: Urosepsis -Patient with evidence of pancytopenia possibly due to recurrence of myeloma, renal failure and sepsis. Patient requires maintenance on anticoagulation due to mechanical aortic valve. We will consult medical oncology to assist with his pancytopenia. We will obtain an echo to evaluate the valve's integrity. Transfuse to maintain hemoglobin above 7 and platelet count above 50,000. Hemoglobin and platelets stable at this time. Continue warfarin. -Antibiotic regimen now linezolid, Rocephin and doxycycline. Urine cultures growing pansensitive E. coli and gram-positive cocci. -Anaplasma screen was negative. Lyme antibodies negative. Babesia screen negative. Confirmatory PCR pending. Continue doxycycline. Ferritin level is elevated and triglyceride levels unremarkable. Unlikely to be HLH given lack of fever, lack of altered mental status and stable anemia. PTT elevated. Sepsis coagulopathy, iron deficiency anemia, atypical HUS and TTP on the differential as well. * Now downgraded to med telemetry. ANDREA -Presented with advanced kidney dysfunction associated with diarrhea. Notable metabolic acidosis. Started on hemodialysis on 08/13 via R femoral HD catheter, which he tolerated well. * Nephrology consulted and managing. Electrolyte repletion per nephrology. * Renvela with meals for hyperphosphatemia Acute uremia -S/p emergent HD. * Nephrology on board. Appreciate recommendations. Anemia -Elevated ferritin. No signs of hemolysis on peripheral smear. Considered secondary to chronic iron deficiency anemia. S/p Epogen 40,000 units, PRBC x2 units with HD on 08/13. * Trend hemoglobin Hypocalcemia * Calcitriol increased to 0.5 mcg daily. * Continue calcium carbonate * Trend on morning labs Code: Full code Dispo: Med-Surg telemetry FEN/GI: Renal dialysis DVT Prophylaxis: Warfarin 5 mg q. Tuesday; 2.5 mg q. Tuesday-Tuesday PT/OT: Yes Consults: Nephrology Case Management: Yes (2) Acute uremia: (3) Acute dehydration: (4) Hematuria, microscopic: (5) Urinary retention: (6) Chronic kidney disease: (7) Pancreatic lesion: (8) Secondary hyperparathyroidism: (9) S/P AVR (aortic valve replacement): (10) Elevated prostate specific antigen (PSA): (11) Paroxysmal A-fib: (12) Anemia: (13) Multiple myeloma: (14) Metabolic acidosis: (15) Acute renal failure: (16) Complicated urinary tract infection: Admission and Anticipated Discharge Date Admission Date: August 12, 2022 Supervising Physician Co-Signing Physician Notes I personally examined the patient and verified all taylor points of history and exam, discussed case, and agree with decision making with Dr Ford Feeling a little bit weak and nauseatedbetter than before, did throw up somereally does not like vomiting. No other new complaints. Discussed current situation with patient in depth. 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 Vitals noted, in general he is awake and alert pleasant no distress. HEENT normocephalic atraumatic mucous membranes moist. Breathing unlabored no accessory muscle use good effort. Skin shows no rashes no pallor or icterus. Neuro without focal deficits. Acute renal failurestill continue dialysis acutely. Tolerating reasonably. Continue to follow closely. Otherwise as above. Subjective No acute events overnight. Tolerated HD well yesterday tolerating HD currently now. Patient is aware of downgrade to med telemetry. He has no acute complaints. Review of Systems Review of Systems: All systems reviewed & are unremarkable except as noted in HPI & below Physical Exam Physical Exam: General: No acute distress HEENT: PERRLA. Normal conjunctiva, anicteric sclera. Oropharynx normal. Respiratory: Normal respiratory effort, CTABL. Cardiovascular: RRR without murmurs, gallops, or rubs. No pedal edema. GI: Soft abdomen with normal bowel sounds heard on auscultation. Nontender x4 quadrants Neuro: Alert and oriented x3. Results & Data Results & Data Vital Signs (Past 12 Hours) Vital Signs Temp Pulse Pulse Resp BP BP Pulse Ox 08/14/22 05:30 81 18 98 08/14/22 05:20 78 19 99 08/14/22 05:10 72 18 94 08/14/22 05:00 75 13 98 08/14/22 05:00 120/61 08/14/22 04:50 66 8 L 97 08/14/22 04:40 72 18 92 08/14/22 04:30 69 17 97 08/14/22 04:20 65 12 94 08/14/22 04:10 71 24 120/61 95 08/14/22 04:01 127/56 L 08/14/22 04:01 77 21 98 08/14/22 04:00 68 18 92 08/14/22 03:00 70 12 96 08/14/22 03:00 123/82 08/14/22 04:26 36.7 C 08/14/22 02:01 84 18 99 08/14/22 02:01 134/64 08/14/22 02:00 79 18 96 08/14/22 01:30 79 23 98 08/14/22 01:00 80 20 08/14/22 01:00 117/76 08/14/22 00:41 82 17 94 08/14/22 00:41 126/65 08/14/22 00:30 94 H 26 H 98 08/14/22 00:00 86 16 97 08/14/22 00:00 129/81 08/13/22 23:30 80 17 93 08/13/22 23:10 131/60 08/13/22 23:10 90 25 H 97 08/13/22 23:00 89 19 96 08/13/22 23:00 127/69 08/13/22 22:50 96 H 15 97 08/13/22 22:50 145/57 H 08/13/22 22:41 148/53 H 08/13/22 22:41 86 20 97 08/13/22 22:30 90 22 84 L 08/13/22 22:30 112/50 L 08/13/22 22:20 121/50 L 08/13/22 22:20 84 19 91 08/13/22 22:10 93 H 24 97 08/13/22 22:10 140/62 08/13/22 22:01 90 19 93 08/13/22 21:50 95 H 15 97 08/13/22 21:50 134/59 L 08/14/22 00:42 36.7 C 85 19 126/65 97 08/14/22 00:41 36.7 C 85 19 126/65 97 08/13/22 23:42 36.7 C 83 18 129/81 96 08/13/22 23:30 93 H 08/13/22 23:22 36.6 C 87 18 135/63 96 08/13/22 22:42 36.6 C 85 18 131/60 97 08/13/22 22:12 36.8 C 96 H 18 145/57 H 96 08/13/22 21:50 36.6 C 91 H 17 134/59 L 97 08/13/22 21:35 122/71 08/13/22 21:35 93 H 20 94 08/13/22 21:30 84 17 98 08/13/22 21:15 93 H 25 H 99 08/13/22 21:01 102 H 18 98 08/13/22 21:01 123/54 L 08/13/22 21:00 106 H 22 93 08/13/22 20:50 98 H 18 97 08/13/22 20:50 142/66 H 08/13/22 20:46 129/65 08/13/22 20:46 100 H 18 97 08/13/22 20:45 86 14 90 08/13/22 20:30 87 21 93 08/13/22 20:30 105/60 08/13/22 20:22 115/47 L 08/13/22 20:22 83 20 96 08/13/22 20:15 89 29 H 95 08/13/22 20:00 94 H 19 98 08/13/22 20:00 132/68 08/13/22 19:46 121/64 08/13/22 19:46 87 21 99 08/13/22 19:45 89 21 97 08/13/22 21:45 08/13/22 21:40 36.7 C 95 H 18 122/71 94 08/13/22 20:55 36.6 C 104 H 142/66 H 08/13/22 20:30 87 105/40 L 08/13/22 20:00 80 115/47 L Pulse Ox O2 Del Method O2 Del Method O2 Flow Rate 08/14/22 05:30 08/14/22 05:20 08/14/22 05:10 08/14/22 05:00 08/14/22 05:00 08/14/22 04:50 08/14/22 04:40 08/14/22 04:30 08/14/22 04:20 08/14/22 04:10 08/14/22 04:01 08/14/22 04:01 08/14/22 04:00 08/14/22 03:00 08/14/22 03:00 08/14/22 04:26 08/14/22 02:01 08/14/22 02:01 08/14/22 02:00 08/14/22 01:30 08/14/22 01:00 08/14/22 01:00 08/14/22 00:41 08/14/22 00:41 08/14/22 00:30 08/14/22 00:00 08/14/22 00:00 08/13/22 23:30 08/13/22 23:10 08/13/22 23:10 08/13/22 23:00 08/13/22 23:00 08/13/22 22:50 08/13/22 22:50 08/13/22 22:41 08/13/22 22:41 Nasal Cannula 2 08/13/22 22:30 08/13/22 22:30 08/13/22 22:20 08/13/22 22:20 08/13/22 22:10 08/13/22 22:10 08/13/22 22:01 08/13/22 21:50 08/13/22 21:50 08/14/22 00:42 0 08/14/22 00:41 08/13/22 23:42 0 08/13/22 23:30 08/13/22 23:22 0 08/13/22 22:42 08/13/22 22:12 08/13/22 21:50 0 08/13/22 21:35 08/13/22 21:35 08/13/22 21:30 08/13/22 21:15 08/13/22 21:01 08/13/22 21:01 08/13/22 21:00 08/13/22 20:50 08/13/22 20:50 08/13/22 20:46 08/13/22 20:46 08/13/22 20:45 08/13/22 20:30 08/13/22 20:30 08/13/22 20:22 08/13/22 20:22 08/13/22 20:15 08/13/22 20:00 08/13/22 20:00 08/13/22 19:46 08/13/22 19:46 08/13/22 19:45 08/13/22 21:45 98 Room Air 08/13/22 21:40 08/13/22 20:55 08/13/22 20:08/13/22 20:00 Resident Activity Tracking Resident Involvement: Resident Care Provided Care Provided: Adult Hospital Medicine
[2022-08-14] MEDS ORDERED: POTASSIUM CHLORIDE CRTAB 20 MEQ TABCR PO STA (08:38)
[2022-08-14] MEDS: CALCIUM CARBONATE 500 MG CHEWABLE TAB PO SCH ×3 (09:02→21:42)
[2022-08-14] MEDS: SEVELAMER HCL 800 MG TABLET PO SCH ×3 (09:02→16:10)
[2022-08-14] MEDS: PANCREAZE (LIPASE 10,500U) CAP PO SCH ×3 (09:02→16:10)
[2022-08-14] MEDS: CHOLECALCIFEROL 1,000 UNITS 25 MCG TAB PO SCH (09:03)
[2022-08-14] MEDS: CALCITRIOL 0.25 MCG CAPSULE PO SCH (09:03)
[2022-08-14] MEDS: MAGNESIUM SULFATE / D5W 1 GM/100 ML BAG IV SCH ×2 (09:07→11:09)
--- NOTE | 2022-08-14 09:44 | Nephrology Progress Note ---
Date of Service August 14, 2022 Assessment & Plan (1) ANDREA (acute kidney injury): Plan: Baseline CKD IV (creatinine ~4 mg/dL). Presented with advanced kidney dysfunction associated with diarrhea. Notable metabolic acidosis. Started on HD emergently 08/13 via a R femoral HD catheter. Tolerated treatment well. Adequate clearance. Qb acceptable. Orders for 2nd treatment entered into the EHR today and reviewed with dialysis nurse. Qb 250. Minimal UF. Supplement potassium for hypokalemia. Oral NaHCO3 supplement discontinued this AM. For hypomagnesemia and hypokalemia - MgSO4 and PO KCl have been provided. Monitor electrolytes closely. Repeat metabolic profile tomorrow AM. Medications are appropriately dosed for IHD. Avoid dietary restrictions. For hyperphosphatemia, Renvela will be provided with meals. (2) Acute uremia: Plan: Started on emergent HD. Discussed role of dialysis in symptom management. Discussed acute versus chronic kidney dysfunction. Messi is hopeful to see renal recovery but he expressed understanding that findings are suggestive of potential ESKD. (3) Anemia: Plan: Due to elevated ferritin additional iron replacement held. Epogen 65313 units provided yesterday. 2 unit PRBC support provided with HD yesterday. (4) Hypocalcemia: Plan: Increase calcitriol to 0.5 mcg daily. Continue calcium carbonate as Rx. Recheck tomorrow AM. (5) Metabolic acidosis: Plan: Improved with replacement and HD. HCO3 gtt and PO supplement have been discontinued. Admission and Anticipated Discharge Date Admission Date: August 12, 2022 Subjective Messi was seen and evaluated during hemodialysis this morning. He tolerated treatment yesterday without complications. Some nausea and retching early during treatment. A few loose bowel movements overnight. Joint pains and myalgias persist. Messi notes that his left knee in particular has been bothersome. He experiences some dull aching pain along the lateral aspect of the knee but notes that he has not injured it. It has been sore to walk on for several days. He has been feeling generally weak. Appetite remains very poor. Messi has lost his sense of taste and has no desire to eat. He has been feeling so poorly that he was reluctant to consider dialysis. He has not had issues with treatment yesterday or today. He remains very hopeful that kidney function will improve. Messi is unsure that he would want to live on dialysis given how poorly he has been feeling recently. 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 His goal is to return home so he can return to work. Review of Systems Review of Systems: All systems reviewed & are unremarkable except as noted in HPI & below Constitutional: + fatigue Gastrointestinal: + nausea, + vomiting and + diarrhea/loose stools; no abdominal pain, no blood in stools and no melena Musculoskeletal: + joint pain, + myalgia and + body aches; no back pain Physical Exam Constitutional: + frail appearing Eyes: sclerae not anicteric and no corneal abnormality ENMT: Mouth: + dry oral mucous membranes; no oral mucosal abnormality Neck: trachea midline, no thyromegaly Respiratory: normal respiratory effort, lungs clear to auscultation Cardiovascular: Rate/Rhythm: + irregularly irregular Heart Sounds: + click (prosthetic S2) Vessels: no JVD Extremities: no edema Gastrointestinal (Abdomen): Percussion/Palpation: abdomen nontender and no guarding Musculoskeletal: Extremities: no cyanosis and no clubbing normal inspection of both knees Skin: normal turgor; no jaundice Neurologic: Speech / Cognition: normal speech and normal cognition Results & Data Vital Signs (Past 12 Hours) Vital Signs Temp Pulse Pulse Resp BP Pulse Ox Pulse Ox 08/14/22 09:00 62 127/52 L 08/14/22 08:30 59 L 129/70 08/14/22 08:05 63 140/54 L 08/14/22 07:55 36.8 C 66 08/14/22 05:30 81 18 98 08/14/22 05:20 78 19 99 08/14/22 05:10 72 18 94 08/14/22 05:00 75 13 98 08/14/22 05:00 120/61 08/14/22 04:50 66 8 L 97 08/14/22 04:40 72 18 92 08/14/22 04:30 69 17 97 08/14/22 04:20 65 12 94 08/14/22 04:10 71 24 120/61 95 08/14/22 04:01 127/56 L 08/14/22 04:01 77 21 98 08/14/22 04:00 68 18 92 08/14/22 03:00 70 12 96 08/14/22 03:00 123/82 08/14/22 04:26 36.7 C 06/24/23 02:01 84 18 99 08/14/22 02:01 134/64 08/14/22 02:00 79 18 96 08/14/22 01:30 79 23 98 08/14/22 01:00 80 20 08/14/22 01:00 117/76 08/14/22 00:41 82 17 94 08/14/22 00:41 126/65 08/14/22 00:30 94 H 26 H 98 08/14/22 00:00 86 16 97 08/14/22 00:00 129/81 08/13/22 23:30 80 17 93 08/13/22 23:10 131/60 08/13/22 23:10 90 25 H 97 08/13/22 23:00 89 19 96 08/13/22 23:00 127/69 08/13/22 22:50 96 H 15 97 08/13/22 22:50 145/57 H 08/13/22 22:41 148/53 H 08/13/22 22:41 86 20 97 08/13/22 22:30 90 22 84 L 08/13/22 22:30 112/50 L 08/13/22 22:20 121/50 L 08/13/22 22:20 84 19 91 08/13/22 22:10 93 H 24 97 08/13/22 22:10 140/62 08/13/22 22:01 90 19 93 08/13/22 21:50 95 H 15 97 08/13/22 21:50 134/59 L 08/14/22 00:42 36.7 C 85 19 126/65 97 08/14/22 00:41 36.7 C 85 19 126/65 97 08/13/22 23:42 36.7 C 83 18 129/81 96 08/13/22 23:30 93 H 08/13/22 23:22 36.6 C 87 18 135/63 96 08/13/22 22:42 36.6 C 85 18 131/60 97 08/13/22 22:12 36.8 C 96 H 18 145/57 H 96 08/13/22 21:50 36.6 C 91 H 17 134/59 L 97 08/13/22 21:35 122/71 08/13/22 21:35 93 H 20 94 08/13/22 21:45 98 08/13/22 21:40 36.7 C 95 H 18 122/71 94 O2 Del Method O2 Del Method O2 Flow Rate 08/14/22 09:00 08/14/22 08:30 08/14/22 08:05 08/14/22 07:55 08/14/22 05:30 08/14/22 05:20 08/14/22 05:10 08/14/22 05:00 08/14/22 05:00 08/14/22 04:50 08/14/22 04:40 08/14/22 04:30 08/14/22 04:20 08/14/22 04:10 08/14/22 04:01 08/14/22 04:01 08/14/22 04:00 08/14/22 03:00 08/14/22 03:00 08/14/22 04:26 08/14/22 02:01 08/14/22 02:01 08/14/22 02:00 08/14/22 01:30 08/14/22 01:00 08/14/22 01:00 08/14/22 00:41 08/14/22 00:41 08/14/22 00:30 08/14/22 00:00 08/14/22 00:00 08/13/22 23:30 08/13/22 23:10 08/13/22 23:10 08/13/22 23:00 08/13/22 23:00 08/13/22 22:50 08/13/22 22:50 08/13/22 22:41 08/13/22 22:41 Nasal Cannula 2 08/13/22 22:30 08/13/22 22:30 08/13/22 22:20 08/13/22 22:20 08/13/22 22:10 08/13/22 22:10 08/13/22 22:01 08/13/22 21:50 08/13/22 21:50 08/14/22 00:42 0 08/14/22 00:41 08/13/22 23:42 0 08/13/22 23:30 08/13/22 23:22 0 08/13/22 22:42 08/13/22 22:12 08/13/22 21:50 0 08/13/22 21:35 08/13/22 21:35 08/13/22 21:45 Room Air 08/13/22 21:40 Laboratory Results Laboratory Results - last 24 hr 08/12/22 08/13/22 08/13/22 16:32 08:25 13:48 WBC RBC Hgb Hct MCV MCH MCHC RDW Std Deviation RDW Coeff of Berto Plt Count MPV Immature Gran % (Auto) Neut % (Auto) Lymph % (Auto) [place] % (Auto) Eos % (Auto) Baso % (Auto) Neut # (Auto) Lymph # (Auto) [place] # (Auto) Eos # (Auto) Baso # (Auto) Immature Gran # (Auto) PT 19.6 H INR 1.9 H APTT 52.4 H* PTT Ratio 1.9 VBG pH VBG pCO2 VBG pO2 VBG HCO3 VBG O2 Saturation VBG Base Excess Sodium Potassium Chloride Carbon Dioxide Anion Gap BUN Creatinine Est Cr Clr Drug Dosing Est GFR ( Amer) Est GFR (Non-Af Amer) BUN/Creatinine Ratio Glucose Calcium Phosphorus Magnesium Iron TIBC Unsaturated IBC Transferrin % Sat Ferritin Albumin Triglycerides 25-OH Vitamin D Total 18.0 L Anaplasma Smear A. phagocytophilum DNA Babesia Smear Babesia microti DNA PCR Lyme Disease IgG Ab Lyme Disease IgM Ab Hep Bs Antigen Hep Bs Ag Confirmation Hep Bs Antibody, Quant Hep B Core IgM Ab Blood Type O Positive Antibody Screen NEGATIVE Crossmatch See Detail 08/13/22 08/13/22 08/13/22 13:48 13:48 13:48 WBC 7.08 RBC 2.38 L Hgb 7.2 L Hct 20.0 L* MCV 84.0 MCH 30.3 MCHC 36.0 RDW Std Deviation 45.8 RDW Coeff of Berto 14.9 H Plt Count 109 L MPV 11.5 Immature Gran % (Auto) 0.7 Neut % (Auto) 79.7 Lymph % (Auto) 5.9 [place] % (Auto) 7.5 Eos % (Auto) 5.8 Baso % (Auto) 0.4 Neut # (Auto) 5.64 Lymph # (Auto) 0.42 L [place] # (Auto) 0.53 Eos # (Auto) 0.41 Baso # (Auto) 0.03 Immature Gran # (Auto) 0.05 PT INR APTT PTT Ratio VBG pH 7.35 L VBG pCO2 23 L VBG pO2 44 VBG HCO3 13 VBG O2 Saturation 80.7 VBG Base Excess -11.5 Sodium 136 Potassium 3.4 L Chloride 103 Carbon Dioxide 12 L Anion Gap 21 H BUN 144 H Creatinine 10.62 H* Est Cr Clr Drug Dosing 5.7 Est GFR ( Amer) 4.8 Est GFR (Non-Af Amer) 4.1 BUN/Creatinine Ratio 13.6 Glucose 208 H Calcium 5.8 L* Phosphorus 11.4 H Magnesium 1.5 L Iron TIBC Unsaturated IBC Transferrin % Sat Ferritin Albumin 2.9 L Triglycerides 25-OH Vitamin D Total Anaplasma Smear A. phagocytophilum DNA Babesia Smear Babesia microti DNA PCR Lyme Disease IgG Ab Lyme Disease IgM Ab Hep Bs Antigen Hep Bs Ag Confirmation Hep Bs Antibody, Quant Hep B Core IgM Ab Blood Type Antibody Screen Crossmatch 08/13/22 08/13/22 08/13/22 17:50 17:50 20:51 WBC RBC Hgb Hct MCV MCH MCHC RDW Std Deviation RDW Coeff of Berto Plt Count MPV Immature Gran % (Auto) Neut % (Auto) Lymph % (Auto) [place] % (Auto) Eos % (Auto) Baso % (Auto) Neut # (Auto) Lymph # (Auto) [place] # (Auto) Eos # (Auto) Baso # (Auto) Immature Gran # (Auto) PT INR APTT PTT Ratio VBG pH 7.35 L 7.51 H VBG pCO2 26 L 35 L VBG pO2 41 30 VBG HCO3 14 28 VBG O2 Saturation 69.0 61.6 VBG Base Excess -9.5 4.9 Sodium Potassium Chloride Carbon Dioxide Anion Gap BUN Creatinine Est Cr Clr Drug Dosing Est GFR ( Amer) Est GFR (Non-Af Amer) BUN/Creatinine Ratio Glucose Calcium Phosphorus Magnesium Iron TIBC Unsaturated IBC Transferrin % Sat Ferritin Albumin Triglycerides 25-OH Vitamin D Total Anaplasma Smear A. phagocytophilum DNA Babesia Smear Babesia microti DNA PCR Lyme Disease IgG Ab Lyme Disease IgM Ab Hep Bs Antigen Pending Hep Bs Ag Confirmation Pending Hep Bs Antibody, Quant Pending Hep B Core IgM Ab Pending Blood Type Antibody Screen Crossmatch 08/13/22 08/13/22 08/13/22 20:51 20:51 20:51 WBC RBC Hgb Hct MCV MCH MCHC RDW Std Deviation RDW Coeff of Berto Plt Count MPV Immature Gran % (Auto) Neut % (Auto) Lymph % (Auto) [place] % (Auto) Eos % (Auto) Baso % (Auto) Neut # (Auto) Lymph # (Auto) [place] # (Auto) Eos # (Auto) Baso # (Auto) Immature Gran # (Auto) PT INR APTT PTT Ratio VBG pH VBG pCO2 VBG pO2 VBG HCO3 VBG O2 Saturation VBG Base Excess Sodium Potassium Chloride Carbon Dioxide Anion Gap BUN Creatinine Est Cr Clr Drug Dosing Est GFR ( Amer) Est GFR (Non-Af Amer) BUN/Creatinine Ratio Glucose Calcium Phosphorus Magnesium Iron TIBC Unsaturated IBC Transferrin % Sat Ferritin Albumin Triglycerides 25-OH Vitamin D Total Anaplasma Smear See Comment A. phagocytophilum DNA Pending Babesia Smear See Comment Babesia microti DNA PCR Lyme Disease IgG Ab Negative Lyme Disease IgM Ab Negative Hep Bs Antigen Hep Bs Ag Confirmation Hep Bs Antibody, Quant Hep B Core IgM Ab Blood Type Antibody Screen Crossmatch 08/13/22 08/13/22 08/14/22 20:51 20:51 04:09 WBC RBC Hgb Hct MCV MCH MCHC RDW Std Deviation RDW Coeff of Berto Plt Count MPV Immature Gran % (Auto) Neut % (Auto) Lymph % (Auto) [place] % (Auto) Eos % (Auto) Baso % (Auto) Neut # (Auto) Lymph # (Auto) [place] # (Auto) Eos # (Auto) Baso # (Auto) Immature Gran # (Auto) PT INR APTT PTT Ratio VBG pH VBG pCO2 VBG pO2 VBG HCO3 VBG O2 Saturation VBG Base Excess Sodium 140 Potassium 3.0 L Chloride 101 Carbon Dioxide 24 Anion Gap 15 H BUN 75 H D Creatinine 6.20 H* D Est Cr Clr Drug Dosing 9.7 Est GFR ( Amer) 9.2 Est GFR (Non-Af Amer) 7.9 BUN/Creatinine Ratio 12.1 Glucose 149 H Calcium 6.8 L Phosphorus 5.8 H Magnesium Iron 97 TIBC TNP Unsaturated IBC < 55 L Transferrin % Sat TNP Ferritin 1186.3 H 1308.4 H Albumin 2.9 L Triglycerides 107 25-OH Vitamin D Total Anaplasma Smear A. phagocytophilum DNA Babesia Smear Babesia microti DNA PCR Pending Lyme Disease IgG Ab Lyme Disease IgM Ab Hep Bs Antigen Hep Bs Ag Confirmation Hep Bs Antibody, Quant Hep B Core IgM Ab Blood Type Antibody Screen Crossmatch 08/14/22 04:09 WBC 7.30 RBC 2.84 L Hgb 8.4 L Hct 23.5 L MCV 82.7 MCH 29.6 MCHC 35.7 RDW Std Deviation 46.5 H RDW Coeff of Berto 15.3 H Plt Count 111 L MPV 10.8 Immature Gran % (Auto) Neut % (Auto) Lymph % (Auto) [place] % (Auto) Eos % (Auto) Baso % (Auto) Neut # (Auto) Lymph # (Auto) [place] # (Auto) Eos # (Auto) Baso # (Auto) Immature Gran # (Auto) PT INR APTT PTT Ratio VBG pH VBG pCO2 VBG pO2 VBG HCO3 VBG O2 Saturation VBG Base Excess Sodium Potassium Chloride Carbon Dioxide Anion Gap BUN Creatinine Est Cr Clr Drug Dosing Est GFR ( Amer) Est GFR (Non-Af Amer) BUN/Creatinine Ratio Glucose Calcium Phosphorus Magnesium Iron TIBC Unsaturated IBC Transferrin % Sat Ferritin Albumin Triglycerides 25-OH Vitamin D Total Anaplasma Smear A. phagocytophilum DNA Babesia Smear Babesia microti DNA PCR Lyme Disease IgG Ab Lyme Disease IgM Ab Hep Bs Antigen Hep Bs Ag Confirmation Hep Bs Antibody, Quant Hep B Core IgM Ab Blood Type Antibody Screen Crossmatch PG Care Time/CCT Total # of Minutes Spent Total Time Spent with Patient: Total time spent is greater than 50% in coordination of care (as documented) at patient's floor/unit and/or counseling patient: Coding Level of Care Code 27091 SUB INP/OBS CARE 3/50MIN Diagnoses ANDREA (acute kidney injury) N17.9 Acute uremia N19 Anemia D64.9 Hypocalcemia E83.51 Metabolic acidosis E87.20
--- NOTE | 2022-08-14 09:56 | Hospitalist Progress Note ---
Date of Service August 14, 2022 Assessment & Plan (1) Anemia: Plan: See below Plan Moderate to severe anemia with stable white blood cell count and modest thrombocytopenia. Platelet counts are numerically adequate for full dose anticoagulation though there may be functional platelet defects related to his uremia. Peripheral smear review by pathology was unremarkable, patient is frankly iron overloaded in part reflecting previous transfusions but certainly does not show laboratory signs of iron depletion. Folate levels were adequate though empiric folic acid supplementation would not hurt. Patient does have a history of B12 deficiency and that laboratory is being rechecked. Reticulocyte count is pending to assess any issues of hemolysis. 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 Repeat serum protein electrophoresis, kappa/lambda light chain and immunoglobulin assessments are pending. Full consult will follow Admission and Anticipated Discharge Date Admission Date: August 12, 2022 Subjective Chart briefly reviewed, full hematology consult to follow Results & Data Results & Data Vital Signs (Past 12 Hours) Vital Signs Temp Pulse Pulse Resp BP Pulse Ox O2 Del Method 08/14/22 09:30 70 131/64 08/14/22 09:00 62 127/52 L 08/14/22 08:30 59 L 129/70 08/14/22 08:05 63 140/54 L 08/14/22 07:55 36.8 C 66 08/14/22 05:30 81 18 98 08/14/22 05:20 78 19 99 08/14/22 05:10 72 18 94 08/14/22 05:00 75 13 98 08/14/22 05:00 120/61 08/14/22 04:50 66 8 L 97 08/14/22 04:40 72 18 92 08/14/22 04:30 69 17 97 08/14/22 04:20 65 12 94 08/14/22 04:10 71 24 120/61 95 08/14/22 04:01 127/56 L 08/14/22 04:01 77 21 98 08/14/22 04:00 68 18 92 08/14/22 03:00 70 12 96 08/14/22 03:00 123/82 08/14/22 04:26 36.7 C 08/14/22 02:01 84 18 99 08/14/22 02:01 134/64 08/14/22 02:00 79 18 96 08/14/22 01:30 79 23 98 08/14/22 01:00 80 20 08/14/22 01:00 117/76 08/14/22 00:41 82 17 94 08/14/22 00:41 126/65 08/14/22 00:30 94 H 26 H 98 08/14/22 00:00 86 16 97 08/14/22 00:00 129/81 08/13/22 23:30 80 17 93 08/13/22 23:10 131/60 08/13/22 23:10 90 25 H 97 08/13/22 23:00 89 19 96 08/13/22 23:00 127/69 08/13/22 22:50 96 H 15 97 08/13/22 22:50 145/57 H 08/13/22 22:41 148/53 H 08/13/22 22:41 86 20 97 Nasal Cannula 08/13/22 22:30 90 22 84 L 08/13/22 22:30 112/50 L 08/13/22 22:20 121/50 L 08/13/22 22:20 84 19 91 08/13/22 22:10 93 H 24 97 08/13/22 22:10 140/62 08/13/22 22:01 90 19 93 08/14/22 00:42 36.7 C 85 19 126/65 97 08/14/22 00:41 36.7 C 85 19 126/65 97 08/13/22 23:42 36.7 C 83 18 129/81 96 08/13/22 23:30 93 H 08/13/22 23:22 36.6 C 87 18 135/63 96 08/13/22 22:42 36.6 C 85 18 131/60 97 08/13/22 22:12 36.8 C 96 H 18 145/57 H 96 O2 Flow Rate 08/14/22 09:30 08/14/22 09:00 08/14/22 08:30 08/14/22 08:05 08/14/22 07:55 08/14/22 05:30 08/14/22 05:20 08/14/22 05:10 08/14/22 05:00 08/14/22 05:00 08/14/22 04:50 08/14/22 04:40 08/14/22 04:30 08/14/22 04:20 08/14/22 04:10 08/14/22 04:01 08/14/22 04:01 08/14/22 04:00 08/14/22 03:00 08/14/22 03:00 08/14/22 04:26 08/14/22 02:01 08/14/22 02:01 08/14/22 02:00 08/14/22 01:30 08/14/22 01:00 08/14/22 01:00 08/14/22 00:41 08/14/22 00:41 08/14/22 00:30 08/14/22 00:00 08/14/22 00:00 08/13/22 23:30 08/13/22 23:10 08/13/22 23:10 08/13/22 23:00 08/13/22 23:00 08/13/22 22:50 08/13/22 22:50 08/13/22 22:41 08/13/22 22:41 2 08/13/22 22:30 08/13/22 22:30 08/13/22 22:20 08/13/22 22:20 08/13/22 22:10 08/13/22 22:10 08/13/22 22:01 08/14/22 00:42 0 08/14/22 00:41 08/13/22 23:42 0 08/13/22 23:30 08/13/22 23:22 0 08/13/22 22:42 08/13/22 22:12 PG Care Time/CCT Total # of Minutes Spent Total Time Spent with Patient: Total time spent is greater than 50% in coordination of care (as documented) at patient's floor/unit and/or counseling patient: Coding Level of Care Code None Diagnoses Anemia D64.9
--- NOTE | 2022-08-14 10:23 | Critical Care Progress Note ---
Date of Service August 14, 2022 Assessment & Plan (1) Metabolic acidosis: (2) Acute renal failure: (3) Complicated urinary tract infection: Plan Right femoral temporary hemodialysis catheter placed 08/13/2022. Continue broad- spectrum antibiotics for urosepsis. Continue to trend hemoglobin closely. Patient with evidence of pancytopenia possibly due to recurrence of myeloma, renal failure and sepsis. Unfortunately, the patient needs to be maintained on anticoagulation due to mechanical aortic valve. We will consult medical oncology to assist with his pancytopenia. We will obtain an echo to evaluate the valve's integrity. Transfuse to maintain hemoglobin above 7 and platelet count above 50,000. Hemoglobin and platelets stable at this time. Continue warfarin. Antibiotic regimen now linezolid, Rocephin and doxycycline. Urine cultures growing pansensitive E. coli and gram-positive cocci. Anaplasma screen was negative. Lyme antibodies negative. Babesia screen negative. Confirmatory PCR pending. Continue doxycycline. Ferritin level is elevated and triglyceride levels unremarkable. Unlikely to be HLH given lack of fever, lack of altered mental status and stable anemia. PTT elevated. Sepsis coagulopathy, iron deficiency anemia, atypical HUS and TTP on the differential as well. Peripheral smear checked yesterday did not reveal clear signs of hemolysis. Pathology felt that this was secondary to chronic iron deficiency anemia. Stable for downgrade to PCU. Communicated with the resident service. Admission and Anticipated Discharge Date Admission Date: August 12, 2022 Subjective No acute events overnight. Tolerated HD well yesterday tolerating HD currently now. Getting potassium and magnesium replacement per nephrology. Denies any complaints. Review of Systems Review of Systems: All systems reviewed & are unremarkable except as noted in HPI & below Physical Exam Physical Exam: Constitutional: Patient appears to be of their stated age. Patient is in no apparent distress. Patient is well-developed. Eyes: Pupils are equal round and reactive to light. Conjunctivae are normal. Anicteric sclera. Ears nose, mouth and throat: Mallampati class 2. Normal posterior oropharynx. Uvula is midline. Neck: Trachea is midline. Visual inspection is normal. Respiratory: Clear to auscultation bilaterally. No use of accessory muscles. No significant clubbing noted. Cardiovascular: Regular rate and rhythm. Aortic click noted. Minimal edema. Right femoral dialysis catheter. Gastrointestinal: Normal bowel sounds, soft, nontender and nondistended. No hepatosplenomegaly noted. Musculoskeletal: No cyanosis. Patient is able to move all extremities. Strength is 5 out of 5 in the upper and lower extremities. Skin: No rashes, warm dry and intact. Neurologic: No obvious focal neurological deficits seen. Psychiatric: Alert and oriented x3 with a euthymic affect. Results & Data Results & Data Vital Signs (Past 12 Hours) Vital Signs Temp Pulse Pulse Resp BP Pulse Ox O2 Del Method 08/14/22 10:00 66 122/67 08/14/22 09:30 70 131/64 08/14/22 09:00 62 127/52 L 08/14/22 08:30 59 L 129/70 08/14/22 08:05 63 140/54 L 08/14/22 07:55 36.8 C 66 08/14/22 05:30 81 18 98 08/14/22 05:20 78 19 99 08/14/22 05:10 72 18 94 08/14/22 05:00 75 13 98 08/14/22 05:00 120/61 08/14/22 04:50 66 8 L 97 08/14/22 04:40 72 18 92 08/14/22 04:30 69 17 97 08/14/22 04:20 65 12 94 08/14/22 04:10 71 24 120/61 95 08/14/22 04:01 127/56 L 08/14/22 04:01 77 21 98 08/14/22 04:00 68 18 92 08/14/22 03:00 70 12 96 08/14/22 03:00 123/82 08/14/22 04:26 36.7 C 08/14/22 02:01 84 18 99 08/14/22 02:01 134/64 08/14/22 02:00 79 18 96 08/14/22 01:30 79 23 98 08/14/22 01:00 80 20 08/14/22 01:00 117/76 08/14/22 00:41 82 17 94 08/14/22 00:41 126/65 08/14/22 00:30 94 H 26 H 98 08/14/22 00:00 86 16 97 08/14/22 00:00 129/81 08/13/22 23:30 80 17 93 08/13/22 23:10 131/60 08/13/22 23:10 90 25 H 97 08/13/22 23:00 89 19 96 08/13/22 23:00 127/69 08/13/22 22:50 96 H 15 97 08/13/22 22:50 145/57 H 08/13/22 22:41 148/53 H 08/13/22 22:41 86 20 97 Nasal Cannula 08/13/22 22:30 90 22 84 L 08/13/22 22:30 112/50 L 08/13/22 22:20 121/50 L 08/13/22 22:20 84 19 91 08/14/22 00:42 36.7 C 85 19 126/65 97 08/14/22 00:41 36.7 C 85 19 126/65 97 08/13/22 23:42 36.7 C 83 18 129/81 96 08/13/22 23:30 93 H 08/13/22 23:22 36.6 C 87 18 135/63 96 08/13/22 22:42 36.6 C 85 18 131/60 97 O2 Flow Rate 08/14/22 10:00 08/14/22 09:30 08/14/22 09:00 08/14/22 08:30 08/14/22 08:05 08/14/22 07:55 08/14/22 05:30 08/14/22 05:20 08/14/22 05:10 08/14/22 05:00 08/14/22 05:00 08/14/22 04:50 08/14/22 04:40 08/14/22 04:30 08/14/22 04:20 08/14/22 04:10 08/14/22 04:01 08/14/22 04:01 08/14/22 04:00 08/14/22 03:00 08/14/22 03:00 08/14/22 04:26 08/14/22 02:01 08/14/22 02:01 08/14/22 02:00 08/14/22 01:30 08/14/22 01:00 08/14/22 01:00 08/14/22 00:41 08/14/22 00:41 08/14/22 00:30 08/14/22 00:00 08/14/22 00:00 08/13/22 23:30 08/13/22 23:10 08/13/22 23:10 08/13/22 23:00 08/13/22 23:00 08/13/22 22:50 08/13/22 22:50 08/13/22 22:41 08/13/22 22:41 2 08/13/22 22:30 08/13/22 22:30 08/13/22 22:20 08/13/22 22:20 08/14/22 00:42 0 08/14/22 00:41 08/13/22 23:42 0 08/13/22 23:30 08/13/22 23:22 0 08/13/22 22:42 Coding Level of Care Code 25271 SUB INP/OBS CARE 2/35MIN Diagnoses Metabolic acidosis E87.20 Acute renal failure N17.9 Complicated urinary tract infection N39.0
[2022-08-14 10:29] LABS: Reticulocyte % 1.2 % (0.5-2.0); Reticulocytes # 0.03 10^6/uL (0.02-0.10)
[2022-08-14 10:34] LABS: Immunoglobulin A 253.4 mg/dl (70-400); Immunoglobulin G 1181.5 mg/dl (635-1741); Immunoglobulin M 29.2 mg/dl (45-281)
[2022-08-14 11:46] LABS: Urea Nitrogen, Random Urine 314 mg/dL
[2022-08-14 15:58] LABS: Adenovirus F 40/41 PCR Not Detected (NotDetected); Astrovirus PCR Not Detected (NotDetected); Campylobacter PCR Not Detected (NotDetected); Cryptosporidium PCR Not Detected (NotDetected); Cyclospora cayetanensis PCR Not Detected (NotDetected); Entamoeba histolytica PCR Not Detected (NotDetected); Enteroaggregative E.coli(EAEC) Not Detected (NotDetected); Enteropathogenic E.coli (EPEC) Not Detected (NotDetected); Enterotoxigenic E.coli (ETEC) Not Detected (NotDetected); Giardia lamblia PCR Not Detected (NotDetected); Norovirus GI/GII PCR Not Detected (NotDetected); Plesiomonas shigelloides PCR Not Detected (NotDetected); Rotavirus A PCR Not Detected (NotDetected); Salmonella PCR Not Detected (NotDetected); Sapovirus PCR Not Detected (NotDetected); Shiga-like Toxin E.coli (STEC) Not Detected (NotDetected); Shigella/Enteroinvasive E.coli Not Detected (NotDetected); Vibrio cholerae PCR Not Detected (NotDetected); Vibrio species PCR Not Detected (NotDetected); Yersinia enterocolitica PCR Not Detected (NotDetected)
[2022-08-14] MEDS: WARFARIN SOD 2.5 MG TAB PO SCH (16:10)
--- NOTE | 2022-08-14 17:16 | XCELERA ---
[id number] \\[id number]
--- NOTE | 2022-08-14 17:52 | Billing Data ---
Date of Service August 14, 2022 Coding Level of Care Code 70068 SUB INP/OBS CARE
[2022-08-14] MEDS: TAMSULOSIN HCL 0.4 MG CAP PO SCH (21:42)
[2022-08-14] MEDS: cefTRIAXone SODIUM 2,000 MG in DEXTROSE 5% 50 ML IV SCH (21:46)
[2022-08-14] MEDS: SODIUM BICARBONATE 8.4% 150 MEQ in DEXTROSE 5% 1,000 ML IV SCH (23:27)
[2022-08-15 03:27] LABS: HBSAG NON-REACTIVE (NON-REACTIVE); Hepatitis B Core Antibody IgM NON-REACTIVE (NON-REACTIVE); Hepatitis B Surface Ab, Quant <5 mIU/mL (> OR = 10)
[2022-08-15] MEDS: DOXYCYCLINE HYCLATE 100 MG in DEXTROSE 5% 100 ML IV SCH ×2 (06:10→18:57)
--- NOTE | 2022-08-15 07:51 | Consultation ---
Date of Consultation August 15, 2022 Assessment & Plan (1) Anemia: Anemia is almost certainly multifactorial. We note that the reticulocyte # value of 0.03 indicates that this is a hypoproductive process and thus red cell destruction either through immune hemolytic anemia or significant MAHA seems unlikely to be contributing to his current picture. Peripheral smear review by pathology does not indicate spherocytes or schistocytes nor are there any pathologic forms to suggest a primary hematologic malignancy or disorder. 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 B12 levels are easily adequate, folate levels are stable but folic acid supplementation could not hurt. Primary elements of anemia are combination of the relative erythropoietin deficiency induced by renal dysfunction with inflammatory suppression of erythropoiesis and iron delivery (ACD). Management will be supportive with folic acid supplementation and a conservative transfusion strategy. CHRISTIANA's will be a consideration as his situation stabilizes but may be better avoided for now as there is a concern over induction of thrombosis with their use though that is probably more in the context of excessive elevation of red cell mass. Noting the significantly elevated PSA, there might be some small possibility of marrow involvement with prostate cancer affecting hematopoiesis and contributing to both the anemia and the thrombocytopenia though in the absence of more typical bone lesions on imaging or signs of pelvic adenopathy to suggest higher stage disease, that seems quite unlikely. Nevertheless, if thrombocytopenia and anemia persist marrow aspiration and biopsy might be a consideration and with that cytokeratin/PSA stains. Smoldering persistence of his myeloma is also unlikely though a post transplant MDS is a consideration (2) ANDREA (acute kidney injury): Nephrology certainly has the best perspective on renal issues. Although light chains are pending, stable IgA levels and the long-term remission documented in October suggest that we are not dealing with any light chain or other myeloma related acute kidney injury though there may have been a background of a historic modest renal insult from the myeloma that has made him more susceptible to current issues. (3) Pancreatic lesion: Sampled and felt to be more consistent with an IPMN, Dr. Floyd's note is scanned to [facility] with his perspectives (4) Multiple myeloma: As per the anemia discussion, appears to be in a complete remission though we await updated SPEP and kappa/lambda assessments. No additional intervention indicated unless those values are unexpectedly abnormal (do anticipate that both kappa and lambda light chains will be significantly elevated in the context of renal dysfunction but so long as the FLC ratio remains normal that does not represent a pathological protein but simply excretion dynamics.) (5) Elevated prostate specific antigen (PSA): Even though the PSA significantly improved from earlier in the year, most recent value does remain abnormal. There is heterogeneity of the prostate gland on imaging though no clear indication of pathological pelvic adenopathy and no sign of sclerotic bone lesions. Beyond any implications for urological obstruction which certainly does not seem to be present on the current renal ultrasound, not clear that the presence of a prostate malignancy would impact upon his immediate management other than the unlikely potential for more diffuse marrow involvement that might contribute to the anemia/thrombocytopenia. Would focus on other is sues for now but if he stabilizes sufficiently, marrow and/or prostate biopsy may be worthwhile (6) Thrombocytopathia: Platelets remain in triple digit range which is numerically more than adequate to support ongoing anticoagulation with the caveat that no platelet count will prevent all bleeding and especially in the context of his renal dysfunction, there may be some uremic impairment of platelet function. No transfusion is indicated. As per discussion of anemia and elevated PSA, there is some very small chance of prostate cancer involvement in the marrow though that seems highly unlikely and is probably not worth pursuing immediately. As the situation stabilizes, if he continues with combination of anemia/thrombocytopenia marrow aspiration and biopsy might be part of a thorough work-up to exclude an element of subtle myelodysplasia and as well the unlikely element of prostate cancer marrow involvement. However, even if MDS were established that would not lead to intervention beyond supportive management and alternative approach will be to simply consider long-term CHRISTIANA's once his acute situation stabilized. Persistent myeloma seems extremely unlikely but marrow involvement could exclude that as well. He is at some potential increased risk for MDS based on his previous transplant. (7) Complicated urinary tract infection: IgG levels are currently adequate and it does not seem likely that he has a major immunoglobulin deficiency in the wake of his treatment for myeloma. IgG subsets could be checked to be sure there is not some more subtle subset deficiency but that seems in line Plan 1. Management should focus on his urinary tract infection and renal dysfunction as per hospitalist/critical care/nephrology teams 2. Prudent transfusion support as needed for anemia, consider CHRISTIANA's in time 3. Platelets are numerically adequate and do not need transfusion support. Their numbers are sufficient for ongoing anticoagulation but he is at some increased bleeding risk in the context of uremia induced platelet dysfunction 4. Consider further work-up for his elevated PSA once his situation stabilizes. 5. While marrow involvement with prostate cancer seems extremely unlikely as above, particularly if thrombocytopenia persists as well, marrow aspiration and biopsy to assess for a more complete understanding of his hematologic process particularly to rule out marrow involvement with another malignancy, any smoldering persistence of the myeloma which is nonsecretory, and a possible treatment related MDS. Marrow biopsy is extremely unlikely to affect immediate management, however, and can be deferred to outpatient consideration 6. Consider empiric folic acid supplementation History of Present Illness Reason for Consultation: Pancytopenia and acute kidney injury in a patient with a history of IgA myeloma Attending Physician: Dylon Contreras, DO History of Present Illness Please note that this is a consultation constructed purely from review of the electronic database. I am working remotely and unable to speak directly with the patient or examine him. I reviewed the [facility] records which seem to be an accurate source of relevant information but I am completely reliant on that for my conclusions and perspectives. If there are urgent concerns regarding the need for more direct jzxa-uy-abvl review, you should consider transferring the patient to another institution. I or one of my colleagues will follow up with the patient in a [id number]-[id number] meeting at a later date to augment our assessment and recommendations if desired. The evaluation is consultative in nature and all patient care and treatment decisions can either be accepted or rejected by the patient's primary hospital- based treating physician using their own independent medical judgment for the patient. Mr. Herrera is a 77-year-old usually followed by the [facility] hematology/oncology team. Focusing on his oncologic history, he was diagnosed in 2013 with an IgA kappa multiple myeloma. He achieved good remission after 4 cycles of CyBorD which was consolidated with autologous stem cell transplant on 12/06/2013. He then received 2 years of lenalidomide maintenance therapy but has been off myeloma therapy altogether for the past 6+ years. Most recent available documentation from the [facility] hematology/oncology team was from 11/13/2021. At that time he had stable blood counts, creatinine of 1.7. IgA levels were normal, his kappa and lambda light chains were both elevated consistent with decreased excretion and mild renal insufficiency but the FLC ratio was normal. There was no monoclonal protein on serum protein electrophoresis and immunofixation was negative. He was felt to be in a complete remission. We do note that during the course of his care this year an IgA level on 03/24/2022 was normal at 217.4 mg/dL and his IgA levels are currently normal on this admission. We also note that imaging in the last 6 months which has included both CT and MRI imaging of his abdomen as well as chest x-ray shows osteopenia but no sign of lytic bone lesions. Throughout this year he has had challenges with recurring and worsening overall renal function. This has been in the context of a longstanding history of diarrhea which has been variable in frequency and acute episodes were attributed to dehydration indeed responding to fluid resuscitation though his overall creatinine levels have remained elevated. He is refused colonoscopy but the diarrhea has resolved with institution of Creon. On this admission his symptoms were more nonspecific with fatigue and myalgias and there is a presumptive diagnosis of urosepsis In conjunction with dehydration contributing to his renal insufficiency, he has also noted to have an enlarged prostate with some element of urinary retention. PSA has been as high as 56.19 on 04/15/2022, was most recently 11.99 on 07/20/2022. Patient has seen urology who have focused on the obstructive issues but that did not include a cystoscopy in May that felt that the prostate was "normal," I can find no documentation of a prostate biopsy. There was a question of a pancreatic mass on abdominal imaging but GI work-up was unremarkable including sampling of that pancreatic lesion in conjunction with an EGD/EUS on July 06, 2022. Apparently cytology was unremarkable and overall this appears to be a large pancreatic IPMN. Additional relevant medical history includes notation of an aortic valve replacement on long-term warfarin for apparent rheumatic fever induced valvular abnormalities, status post AAA repair, history of atrial fibrillation, hypertension/hyperlipidemia, and a notation of a possible history of B12 deficiency. Allergies Allergy/AdvReac Type Severity Reaction Status Date / Time ASHLEY Inhibitors AdvReac Intermediate COUGH Verified 08/12/22 16:47 acetic acid AdvReac Intermediate Swelling Verified 08/12/22 16:47 of Lip/Tongue/Throat Home Medications Medication Instructions Recorded Confirmed Type simvastatin 20 mg tablet 20 mg PO DAILY #90 tabs 08/11/21 08/12/22 Rx cholecalciferol (vitamin D3) 25 2,000 unit PO QAM #30 caps 04/08/22 08/12/22 Rx mcg (1,000 unit) capsule sodium bicarbonate 650 mg tablet 1,300 mg PO BID #60 tabs 04/08/22 08/12/22 Rx metoprolol tartrate 50 mg tablet 50 mg PO BID #60 tabs 04/19/22 08/12/22 Rx ypruxw-jhhgiryp-ysnggrk 1 cap PO TIDM #90 caps 05/14/22 08/12/22 Rx 36,000-114,000-180,000 unit capsule,delay rel (Creon) loperamide 2 mg capsule 2 mg PO Q3H PRN loose stool #30 07/01/22 08/12/22 Rx caps calcitriol 0.25 mcg capsule 0.25 mcg PO DAILY #30 caps 07/07/22 08/12/22 Rx tamsulosin 0.4 mg capsule 0.4 mg PO HS #30 caps 07/07/22 08/12/22 Rx potassium chloride 20 mEq oral 20 meq PO DAILY #30 ea 07/28/22 08/12/22 Rx packet warfarin 5 mg tablet 5 mg PO .COMPLEX #30 tabs 08/02/22 08/12/22 Rx furosemide 80 mg tablet 80 mg PO BID 08/12/22 08/12/22 History Patient History Medical History (Updated 08/15/22 @ 07:59 by Armando Kraus MD) Anemia Atrial fibrillation Complicated urinary tract infection Diarrhea Dyslipidemia Elevated prostate specific antigen (PSA) Hypertension Hypokalemia Metabolic acidosis Multiple myeloma Supratherapeutic INR Surgical History H/O stem cell transplant S/P AVR (aortic valve replacement) Family History Mother Alzheimer disease Sister Breast cancer Father Myocardial infarction Denies family history of Ovarian cancer Prostate cancer Colorectal cancer Social History Smoking Status: Never smoker Second Hand Exposure: No; Do You Dip or Chew Tobacco: No; Tobacco Cessation Education Requested by Patient: No Hx Alcohol Use: No Hx Substance Use: No Preferred Language: Frisian Communication Ability: Effective Resource Teacher Required: No Beliefs That Will Affect Care: None marital status: Current Living Situation: Spouse Current Living Situation Comment: with current occupational status: employed 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 Patient has apparently been stable enough to transfer from the ICU to a regular hospital bed Results & Data Vital Signs (Past 12 Hours) Vital Signs Temp Pulse Pulse Resp BP Pulse Ox O2 Del Method 08/15/22 07:26 37.1 C 67 18 128/56 L 95 Room Air 08/15/22 03:47 37.3 C 75 18 125/63 96 Room Air 08/14/22 22:01 64 08/14/22 23:30 Nasal Cannula 08/14/22 23:07 37.2 C 58 L 18 137/61 97 Room Air O2 Flow Rate 08/15/22 07:26 08/15/22 03:47 08/14/22 22:01 08/14/22 23:30 2 08/14/22 23:07 Laboratory Results Laboratory Results - last 24 hr 08/12/22 08/12/22 08/13/22 15:40 16:32 13:48 WBC 7.08 RBC 2.38 L Hgb 7.2 L Hct 20.0 L* MCV 84.0 MCH 30.3 MCHC 36.0 RDW Std Deviation 45.8 RDW Coeff of Berto 14.9 H Plt Count 109 L MPV 11.5 Immature Gran % (Auto) 0.7 Neut % (Auto) 79.7 Lymph % (Auto) 5.9 [place] % (Auto) 7.5 Eos % (Auto) 5.8 Baso % (Auto) 0.4 Reticulocyte % (Auto) Neut # (Auto) 5.64 Lymph # (Auto) 0.42 L [place] # (Auto) 0.53 Eos # (Auto) 0.41 Baso # (Auto) 0.03 Reticulocyte # Immature Gran # (Auto) 0.05 Total Protein (PEP) Albumin (PEP) Ylmuq-2-Taxlfnssq Cgdhr-1-Covyqgmgx Zwhx-1-Zqsjbzqt Polg-6-Ktqsgnsn Gamma Globulins Monoclonal Peak 3 Ser Monoclonl Protein Ser Monoclonal Prot 2 PEP Interpretation Vitamin B12 Ur Random Urea Nitrogn 314 Stl C. cayetanensis PCR Stool Rotavirus A PCR Stl Adenov F PCR Stool Astrovirus (PCR) Stool Campylobacter PCR Stl C. diff Tox B Gene Stool Cryptosporidium PCR Stl E.coli Shiga Tox PCR Stl Enterotoxigenic E PCR Stool EPEC (PCR) Stool EAEC (PCR) Stl E. histolytica PCR Stool Giardia Lamblia PCR Stool Salmonella PCR Stool Sapovirus (PCR) Stl P. shigelloides PCR Stl Shigella/EIEC PCR St Y.enterocolitica PCR Stool Vibrio (PCR) Stl Vibrio cholerae PCR Stl Norovirus GI/GII PCR IgG IgA IgM Free [place] LC, Quant Free Lambda LC, Quant Free [place]/Lambda Ratio Hep Bs Antigen Hep Bs Ag Confirmation Hep Bs Antibody, Quant Hep B Core IgM Ab Blood Type O Positive Antibody Screen NEGATIVE Crossmatch See Detail 08/13/22 08/14/22 08/14/22 17:50 09:59 09:59 WBC RBC Hgb Hct MCV MCH MCHC RDW Std Deviation RDW Coeff of Berto Plt Count MPV Immature Gran % (Auto) Neut % (Auto) Lymph % (Auto) [place] % (Auto) Eos % (Auto) Baso % (Auto) Reticulocyte % (Auto) Neut # (Auto) Lymph # (Auto) [place] # (Auto) Eos # (Auto) Baso # (Auto) Reticulocyte # Immature Gran # (Auto) Total Protein (PEP) Albumin (PEP) Lhctn-9-Hextdsjlj Gutvo-8-Vudduguhy Jvpb-7-Bnbkejmu Hgsp-2-Pwiepufr Gamma Globulins Monoclonal Peak 3 Ser Monoclonl Protein Ser Monoclonal Prot 2 PEP Interpretation Vitamin B12 Ur Random Urea Nitrogn Stl C. cayetanensis PCR Stool Rotavirus A PCR Stl Adenov PCR Stool Astrovirus (PCR) Stool Campylobacter PCR Stl C. diff Tox B Gene Stool Cryptosporidium PCR Stl E.coli Shiga Tox PCR Stl Enterotoxigenic E PCR Stool EPEC (PCR) Stool EAEC (PCR) Stl E. histolytica PCR Stool Giardia Lamblia PCR Stool Salmonella PCR Stool Sapovirus (PCR) Stl P. shigelloides PCR Stl Shigella/EIEC PCR St Y.enterocolitica PCR Stool Vibrio (PCR) Stl Vibrio cholerae PCR Stl Norovirus GI/GII PCR IgG 1181.5 IgA 253.4 IgM 29.2 L Free [place] LC, Quant Pending Free Lambda LC, Quant Pending Free [place]/Lambda Ratio Pending Hep Bs Antigen NON-REACTIVE Hep Bs Ag Confirmation TNP Hep Bs Antibody, Quant <5 L Hep B Core IgM Ab NON-REACTIVE Blood Type Antibody Screen Crossmatch 08/14/22 08/14/22 08/14/22 09:59 09:59 12:12 WBC RBC Hgb Hct MCV MCH MCHC RDW Std Deviation RDW Coeff of Berto Plt Count MPV Immature Gran % (Auto) Neut % (Auto) Lymph % (Auto) [place] % (Auto) Eos % (Auto) Baso % (Auto) Reticulocyte % (Auto) 1.2 Neut # (Auto) Lymph # (Auto) [place] # (Auto) Eos # (Auto) Baso # (Auto) Reticulocyte # 0.03 Immature Gran # (Auto) Total Protein (PEP) Albumin (PEP) Lubmo-8-Vyynzdhoo Hvtje-2-Irlxpwlmz Mdub-8-Iifvzvhf Jprg-1-Dagkfybw Gamma Globulins Monoclonal Peak 3 Ser Monoclonl Protein Ser Monoclonal Prot 2 PEP Interpretation Vitamin B12 > 1500 H Ur Random Urea Nitrogn Stl C. cayetanensis PCR Stool Rotavirus A PCR Stl Adenov F 40/41 PCR Stool Astrovirus (PCR) Stool Campylobacter PCR Stl C. diff Tox B Gene Negative Cdiff Gene Stool Cryptosporidium PCR Stl E.coli Shiga Tox PCR Stl Enterotoxigenic E PCR Stool EPEC (PCR) Stool EAEC (PCR) Stl E. histolytica PCR Stool Giardia Lamblia PCR Stool Salmonella PCR Stool Sapovirus (PCR) Stl P. shigelloides PCR Stl Shigella/EIEC PCR St Y.enterocolitica PCR Stool Vibrio (PCR) Stl Vibrio cholerae PCR Stl Norovirus GI/GII PCR IgG IgA IgM Free [place] LC, Quant Free Lambda LC, Quant Free [place]/Lambda Ratio Hep Bs Antigen Hep Bs Ag Confirmation Hep Bs Antibody, Quant Hep B Core IgM Ab Blood Type Antibody Screen Crossmatch 08/14/22 08/15/22 12:12 06:11 WBC RBC Hgb Hct MCV MCH MCHC RDW Std Deviation RDW Coeff of Berto Plt Count MPV Immature Gran % (Auto) Neut % (Auto) Lymph % (Auto) [place] % (Auto) Eos % (Auto) Baso % (Auto) Reticulocyte % (Auto) Neut # (Auto) Lymph # (Auto) [place] # (Auto) Eos # (Auto) Baso # (Auto) Reticulocyte # Immature Gran # (Auto) Total Protein (PEP) Pending Albumin (PEP) Pending Fvcqn-9-Eczoinqen Pending Mqagh-8-Obbbgtgmk Pending Zllq-4-Aaqypflm Pending Comb-9-Wryghvej Pending Gamma Globulins Pending Monoclonal Peak 3 Pending Ser Monoclonl Protein Pending Ser Monoclonal Prot 2 Pending PEP Interpretation Pending Vitamin B12 Ur Random Urea Nitrogn Stl C. cayetanensis PCR Not Detected Stool Rotavirus A PCR Not Detected Stl Adenov F 40/41 PCR Not Detected Stool Astrovirus (PCR) Not Detected Stool Campylobacter PCR Not Detected Stl C. diff Tox B Gene Stool Cryptosporidium PCR Not Detected Stl E.coli Shiga Tox PCR Not Detected Stl Enterotoxigenic E PCR Not Detected Stool EPEC (PCR) Not Detected Stool EAEC (PCR) Not Detected Stl E. histolytica PCR Not Detected Stool Giardia Lamblia PCR Not Detected Stool Salmonella PCR Not Detected Stool Sapovirus (PCR) Not Detected Stl P. shigelloides PCR Not Detected Stl Shigella/EIEC PCR Not Detected St Y.enterocolitica PCR Not Detected Stool Vibrio (PCR) Not Detected Stl Vibrio cholerae PCR Not Detected Stl Norovirus GI/GII PCR Not Detected IgG IgA IgM Free [place] LC, Quant Free Lambda LC, Quant Free [place]/Lambda Ratio Hep Bs Antigen Hep Bs Ag Confirmation Hep Bs Antibody, Quant Hep B Core IgM Ab Blood Type Antibody Screen Crossmatch Diagnostic Findings Chest X-Ray 08/12/22 14:19 XR chest 1V portable HISTORY: 77 years-old Male Sepsis COMPARISON: 04/29/2022 TECHNIQUE: AP view of the chest FINDINGS: Cardiac silhouette is enlarged. Prior median sternotomy. Right IJ Kbmgnm-r-Blsy catheter is unchanged. Chronic biapical pleural-parenchymal scarring. No pneumothorax, pleural effusion or overt pulmonary edema. Mild chronic interstitial coarsening of the lung bases. Possible emphysema. Healed chronic fracture of the posterolateral left fourth rib. IMPRESSION: 1. Cardiomegaly without acute process. 2. Mild chronic interstitial coarsening of the lung bases. ACT 112: Negative or not required by law. The above report was generated using voice recognition software. It may contain grammatical, syntax or spelling errors. Electronically signed by: Archie Moore M.D. 08/12/2022 2:42 PM Renal Ultrasound 08/12/22 20:25 RENAL ULTRASOUND CLINICAL HISTORY: Severe uremia. COMPARISON STUDY: Renal ultrasound April 23, 2022 and MRI of the abdomen May 11, 2022. TECHNIQUE: Sonography of the kidneys and the urinary bladder was performed. FINDINGS: The right kidney measures 10.9 x 4.5 x 3.9 cm and the left kidney measures 10.8 x 4.4 cm. As before, the kidneys are echogenic. Renal size is normal. There is mild renal cortical thinning bilaterally. There is no hydronephrosis. A few cysts within the kidneys are noted. The largest is a 3.2 cm cyst within the upper pole of the right kidney. No renal calculi or masses are identified. Bladder contains a Chandler balloon. IMPRESSION: 1. No hydronephrosis. 2. Increased renal echogenicity, similar to ultrasound of April 23, 2022. ACT 112: Negative or not required by law. Electronically signed by: Jason Melendez M.D. 08/13/2022 7:45 AM PG Care Time/CCT Total # of Minutes Spent Total Time Spent with Patient: Total time spent is greater than 50% in coordination of care (as documented) at patient's floor/unit and/or counseling patient: [place] [address] IN/OBS CONSULT LVL 3,45M Patient Type New History Expanded Problem Focused Medical Decision Making High Complexity Diagnoses Anemia D64.9 ANDREA (acute kidney injury) N17.9 Pancreatic lesion K86.9 Multiple myeloma C90.00 Elevated prostate specific antigen (PSA) R97.20 Thrombocytopathia D69.1 Complicated urinary tract infection N39.0
[2022-08-15] MEDS: CALCITRIOL 0.25 MCG CAPSULE PO SCH (08:32)
[2022-08-15] MEDS: PANCREAZE (LIPASE 10,500U) CAP PO SCH ×3 (08:33→16:47)
[2022-08-15] MEDS: CHOLECALCIFEROL 1,000 UNITS 25 MCG TAB PO SCH (08:33)
[2022-08-15] MEDS: SEVELAMER HCL 800 MG TABLET PO SCH ×3 (08:33→16:47)
[2022-08-15] MEDS: CALCIUM CARBONATE 500 MG CHEWABLE TAB PO SCH (08:35)
[2022-08-15 10:51] LABS: Hematocrit (blood only) 24.8 % (42.0-52.0); Hemoglobin 8.5 g/dl (14.0-18.0); Mean Corpuscular Hemoglobin 29.9 pg (25.0-34.0); Mean Corpuscular Hgb Conc 34.3 g/dL (32.0-36.0); Mean Corpuscular Volume 87.3 fL (80.0-100.0); Mean Platelet Volume 11.8 fL (9.4-12.4); Platelet Count 115 K/uL (130-400); RDW Coefficient of Variation 16.4 % (11.5-14.5); RDW Standard Deviation 52.5 fL (36.4-46.3); Red Blood Count 2.84 M/uL (4.70-6.10); White Blood Count 7.75 K/ul (4.8-10.8)
[2022-08-15 11:04] LABS: Albumin Level 2.9 gm/dl (3.4-5.0); BUN Creatinine Ratio 8.2 (10-20); Calcium 7.6 mg/dl (8.6-10.3); Creatinine Clr Calc Pharmacy 12.2 ml/min; Est GFR (Non-African American) 10.3 ml/min; Phosphorus 4.9 mg/dl (2.5-4.9)
--- NOTE | 2022-08-15 11:58 | Nephrology Progress Note ---
Date of Service August 15, 2022 Assessment & Plan (1) ANDREA (acute kidney injury): Plan: Baseline CKD IV (creatinine ~4 mg/dL). Presented with advanced kidney dysfunction associated with diarrhea. Notable metabolic acidosis. Started on HD emergently 08/13 via a R femoral HD catheter. 2nd treatment completed yesterday. Will evaluate tomorrow AM -- next treatment tomorrow versus Tuesday. For hypokalemia, KCl 40 mEq PO provided this AM. Medications are appropriately dosed for IHD. Avoid dietary restrictions. For hyperphosphatemia, Renvela will be provided with meals. (2) Acute uremia: Plan: Improved with HD x 2. Monitoring for renal recovery but Messi is advised that findings are suggestive of more chronic kidney dysfunction and prognosis for recovery of kidney function is poor. (3) Anemia: Plan: Epogen 01011 units provided 08/13. 2 unit PRBC support provided with HD 08/14. Appreciate hematology consultation. (4) Hypocalcemia: Plan: Continue calcitriol to 0.5 mcg daily. Calcium carbonate reduced from TID to daily. Recheck tomorrow AM. (5) Metabolic acidosis: Plan: Improved with replacement and HD. HCO3 gtt and PO supplement have been discontinued. Admission and Anticipated Discharge Date Admission Date: August 12, 2022 Subjective No acute events overnight. Reports feeling weak and tired this morning. Sleeping when I entered the room. Reports some persistent discomfort in his stomach but nausea improved. No additional retching or vomiting. Tolerated HD well yesterday without complications. Review of Systems Review of Systems: All systems reviewed & are unremarkable except as noted in HPI & below Physical Exam Constitutional: + frail appearing Eyes: sclerae not anicteric and no corneal abnormality ENMT: Mouth: + dry oral mucous membranes; no oral mucosal abnormality Neck: trachea midline, no thyromegaly Respiratory: normal respiratory effort, lungs clear to auscultation Cardiovascular: Rate/Rhythm: + irregularly irregular Heart Sounds: + click (prosthetic S2) Vessels: no JVD Extremities: no edema Gastrointestinal (Abdomen): Percussion/Palpation: abdomen nontender and no guarding Musculoskeletal: Extremities: no cyanosis and no clubbing Skin: normal turgor; no jaundice Neurologic: Speech / Cognition: normal speech and normal cognition Results & Data Vital Signs (Past 12 Hours) Vital Signs Temp Pulse Pulse Resp BP Pulse Ox O2 Del Method 08/15/22 10:49 36.6 C 63 16 138/65 97 Room Air 08/15/22 08:00 69 08/15/22 07:26 37.1 C 67 18 128/56 L 95 Room Air 08/15/22 03:47 37.3 C 75 18 125/63 96 Room Air Laboratory Results Laboratory Results - last 24 hr 08/12/22 08/13/22 08/14/22 16:32 17:50 12:12 WBC RBC Hgb Hct MCV MCH MCHC RDW Std Deviation RDW Coeff of Berto Plt Count MPV Sodium Potassium Chloride Carbon Dioxide Anion Gap BUN Creatinine Est Cr Clr Drug Dosing Est GFR ( Amer) Est GFR (Non-Af Amer) BUN/Creatinine Ratio Glucose Calcium Phosphorus Total Protein (PEP) Albumin Albumin (PEP) Mfdfy-2-Jzlajjggt Iymoj-7-Bpzrmfusv Csgt-7-Gtbkhfog Gxxx-3-Iqahbcel Gamma Globulins Monoclonal Peak 3 Ser Monoclonl Protein Ser Monoclonal Prot 2 PEP Interpretation Stl C. cayetanensis PCR Stool Rotavirus A PCR Stl Adenov F 40/41 PCR Stool Astrovirus (PCR) Stool Campylobacter PCR Stl C. diff Tox B Gene Negative Cdiff Gene Stool Cryptosporidium PCR Stl E.coli Shiga Tox PCR Stl Enterotoxigenic E PCR Stool EPEC (PCR) Stool EAEC (PCR) Stl E. histolytica PCR Stool Giardia Lamblia PCR Stool Salmonella PCR Stool Sapovirus (PCR) Stl P. shigelloides PCR Stl Shigella/EIEC PCR St Y.enterocolitica PCR Stool Vibrio (PCR) Stl Vibrio cholerae PCR Stl Norovirus GI/GII PCR Hep Bs Antigen NON-REACTIVE Hep Bs Ag Confirmation TNP Hep Bs Antibody, Quant <5 L Hep B Core IgM Ab NON-REACTIVE Blood Type O Positive Antibody Screen NEGATIVE Crossmatch See Detail 08/14/22 08/15/22 08/15/22 12:12 06:11 06:14 WBC RBC Hgb Hct MCV MCH MCHC RDW Std Deviation RDW Coeff of Berto Plt Count MPV Sodium 140 Potassium 3.0 L Chloride 100 Carbon Dioxide 29 Anion Gap 11 BUN 41 H D Creatinine 4.97 H* D Est Cr Clr Drug Dosing 12.2 Est GFR ( Amer) 12.0 Est GFR (Non-Af Amer) 10.3 BUN/Creatinine Ratio 8.2 L Glucose 108 H Calcium 7.6 L Phosphorus 4.9 Total Protein (PEP) Pending Albumin 2.9 L Albumin (PEP) Pending Uhjib-2-Wzoclbpod Pending Tdtta-2-Tpgvmdcog Pending Ajcq-0-Qwbspwph Pending Lahd-1-Kztukdrb Pending Gamma Globulins Pending Monoclonal Peak 3 Pending Ser Monoclonl Protein Pending Ser Monoclonal Prot 2 Pending PEP Interpretation Pending Stl C. cayetanensis PCR Not Detected Stool Rotavirus A PCR Not Detected Stl Adenov F 40 PCR Not Detected Stool Astrovirus (PCR) Not Detected Stool Campylobacter PCR Not Detected Stl C. diff Tox B Gene Stool Cryptosporidium PCR Not Detected Stl E.coli Shiga Tox PCR Not Detected Stl Enterotoxigenic E PCR Not Detected Stool EPEC (PCR) Not Detected Stool EAEC (PCR) Not Detected Stl E. histolytica PCR Not Detected Stool Giardia Lamblia PCR Not Detected Stool Salmonella PCR Not Detected Stool Sapovirus (PCR) Not Detected Stl P. shigelloides PCR Not Detected Stl Shigella/EIEC PCR Not Detected St Y.enterocolitica PCR Not Detected Stool Vibrio (PCR) Not Detected Stl Vibrio cholerae PCR Not Detected Stl Norovirus GI/GII PCR Not Detected Hep Bs Antigen Hep Bs Ag Confirmation Hep Bs Antibody, Quant Hep B Core IgM Ab Blood Type Antibody Screen Crossmatch 08/15/22 06:14 WBC 7.75 RBC 2.84 L Hgb 8.5 L Hct 24.8 L MCV 87.3 D MCH 29.9 MCHC 34.3 RDW Std Deviation 52.5 H RDW Coeff of Berto 16.4 H Plt Count 115 L MPV 11.8 Sodium Potassium Chloride Carbon Dioxide Anion Gap BUN Creatinine Est Cr Clr Drug Dosing Est GFR ( Amer) Est GFR (Non-Af Amer) BUN/Creatinine Ratio Glucose Calcium Phosphorus Total Protein (PEP) Albumin Albumin (PEP) Ajrzx-6-Fcjaubzxu Dyywa-7-Pvgtvfrse Whwu-1-Zeydnbdu Linr-1-Zfmrmcxb Gamma Globulins Monoclonal Peak 3 Ser Monoclonl Protein Ser Monoclonal Prot 2 PEP Interpretation Stl C. cayetanensis PCR Stool Rotavirus A PCR Stl Adenov F 40/ PCR Stool Astrovirus (PCR) Stool Campylobacter PCR Stl C. diff Tox B Gene Stool Cryptosporidium PCR Stl E.coli Shiga Tox PCR Stl Enterotoxigenic E PCR Stool EPEC (PCR) Stool EAEC (PCR) Stl E. histolytica PCR Stool Giardia Lamblia PCR Stool Salmonella PCR Stool Sapovirus (PCR) Stl P. shigelloides PCR Stl Shigella/EIEC PCR St Y.enterocolitica PCR Stool Vibrio (PCR) Stl Vibrio cholerae PCR Stl Norovirus GI/GII PCR Hep Bs Antigen Hep Bs Ag Confirmation Hep Bs Antibody, Quant Hep B Core IgM Ab Blood Type Antibody Screen Crossmatch PG Care Time/CCT Total # of Minutes Spent Total Time Spent with Patient: Total time spent is greater than 50% in coordination of care (as documented) at patient's floor/unit and/or counseling patient: Coding Level of Care Code 91841 SUB INP/OBS CARE 3/50MIN Diagnoses ANDREA (acute kidney injury) N17.9 Acute uremia N19 Anemia D64.9 Hypocalcemia E83.51 Metabolic acidosis E87.20
[2022-08-15] MEDS ORDERED: POTASSIUM CHLORIDE CRTAB 20 MEQ TABCR PO STA (11:59)
--- NOTE | 2022-08-15 15:34 | Hospitalist Progress Note ---
Date of Service August 15, 2022 Assessment & Plan (1) ANDREA (acute kidney injury): Plan: Urosepsis -Patient with evidence of pancytopenia possibly due to recurrence of myeloma, renal failure and sepsis. Patient requires maintenance on anticoagulation due to mechanical aortic valve. We will consult medical oncology to assist with his pancytopenia. We will obtain an echo to evaluate the valve's integrity. Transfuse to maintain hemoglobin above 7 and platelet count above 50,000. Hemoglobin and platelets stable at this time. Continue warfarin. -Antibiotic regimen now linezolid, Rocephin and doxycycline. Urine cultures growing pansensitive E. coli and gram-positive cocci. -Anaplasma screen was negative. Lyme antibodies negative. Babesia screen negative. Confirmatory PCR pending. Continue doxycycline. Ferritin level is elevated and triglyceride levels unremarkable. Unlikely to be HLH given lack of fever, lack of altered mental status and stable anemia. PTT elevated. Sepsis coagulopathy, iron deficiency anemia, atypical HUS and TTP on the differential as well. * Trend daily CBC ANDREA -Presented with advanced kidney dysfunction associated with diarrhea. Notable metabolic acidosis. Started on hemodialysis on 08/13 via R femoral HD catheter, which he tolerated well. * Nephrology consulted and managing. Electrolyte repletion per nephrology. * Renvela with meals for hyperphosphatemia Acute uremia -S/p emergent HD. * Management per nephrology. Appreciate recommendations. Anemia -Elevated ferritin. No signs of hemolysis on peripheral smear. Considered secondary to chronic iron deficiency anemia. S/p Epogen 40,000 units, PRBC x2 units with HD on 08/13. 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 * Trend hemoglobin. Transfuse as needed * Initiate work-up for elevated PSA once stable Hypocalcemia-improving * Calcitriol increased to 0.5 mcg daily. * Continue daily calcium carbonate 500 mg * Trend with morning labs Code: Full code Dispo: Med-Surg telemetry FEN/GI: Renal dialysis DVT Prophylaxis: Warfarin 5 mg q. Tuesday; 2.5 mg q. Tuesday-Tuesday PT/OT: Yes Consults: Nephrology Case Management: Yes (2) Acute uremia: (3) Acute dehydration: (4) Hematuria, microscopic: (5) Urinary retention: (6) Chronic kidney disease: (7) Pancreatic lesion: (8) Secondary hyperparathyroidism: (9) S/P AVR (aortic valve replacement): (10) Elevated prostate specific antigen (PSA): (11) Paroxysmal A-fib: (12) Anemia: (13) Multiple myeloma: (14) Metabolic acidosis: (15) Acute renal failure: (16) Complicated urinary tract infection: Admission and Anticipated Discharge Date Admission Date: August 12, 2022 Supervising Physician Co-Signing Physician Notes I personally examined the patient and verified all taylor points of history and exam, discussed case, and agree with decision making with Dr Ford feeling a little better. Vitals noted, in general he is awake and alert pleasant no distress. HEENT normocephalic atraumatic mucous membranes moist. Breathing unlabored no accessory muscle use good effort. Skin shows no rashes no pallor or icterus. Neuro without focal deficits. Acute renal failurestill continue dialysis acutely. Tolerating reasonably. Nausea improving. Continue to follow closely. Otherwise as above. Subjective Patient is OOB in chair on arrival. He reports mild neck discomfort that feels muscular. He reports some brief positional dizziness when standing. Otherwise, he has no acute complaints or concerns at this time. Review of Systems Review of Systems: All systems reviewed & are unremarkable except as noted in HPI & below Physical Exam Physical Exam: General: No acute distress HEENT: PERRLA. Normal conjunctiva, anicteric sclera. Oropharynx normal. Respiratory: Normal respiratory effort, CTABL. Cardiovascular: RRR without murmurs, gallops, or rubs. No pedal edema. GI: Soft abdomen with normal bowel sounds heard on auscultation. Nontender x4 quadrants Neuro: Alert and oriented x3. Results & Data Results & Data Vital Signs (Past 12 Hours) Vital Signs Temp Pulse Pulse Resp BP Pulse Ox O2 Del Method 08/15/22 10:49 36.6 C 63 16 138/65 97 Room Air 08/15/22 08:00 69 08/15/22 07:26 37.1 C 67 18 128/56 L 95 Room Air 08/15/22 03:47 37.3 C 75 18 125/63 96 Room Air Resident Activity Tracking Resident Involvement: Resident Care Provided Care Provided: Adult Hospital Medicine
[2022-08-15] MEDS: WARFARIN SOD 2.5 MG TAB PO SCH (16:47)
--- NOTE | 2022-08-15 17:59 | Billing Data ---
Date of Service August 15, 2022 Coding Level of Care Code 27361 SUB INP/OBS CARE
[2022-08-15] MEDS ORDERED: ZOLPIDEM TARTRATE 5 MG TAB PO PRN (19:14)
[2022-08-15 19:26] LABS: INR 1.1 (0.9-1.1); Prothrombin Time 12.2 Seconds (9.0-12.0)
[2022-08-15] MEDS: TAMSULOSIN HCL 0.4 MG CAP PO SCH (20:08)
[2022-08-15] MEDS: cefTRIAXone SODIUM 2,000 MG in DEXTROSE 5% 50 ML IV SCH (20:08)
[2022-08-16] MEDS: DOXYCYCLINE HYCLATE 100 MG in DEXTROSE 5% 100 ML IV SCH (06:15)
[2022-08-16 07:22] LABS: Hematocrit (blood only) 25.4 % (42.0-52.0); Hemoglobin 8.6 g/dl (14.0-18.0); Mean Corpuscular Hemoglobin 30.1 pg (25.0-34.0); Mean Corpuscular Hgb Conc 33.9 g/dL (32.0-36.0); Mean Corpuscular Volume 88.8 fL (80.0-100.0); Mean Platelet Volume 11.4 fL (9.4-12.4); Platelet Count 111 K/uL (130-400); RDW Coefficient of Variation 15.9 % (11.5-14.5); RDW Standard Deviation 52.4 fL (36.4-46.3); Red Blood Count 2.86 M/uL (4.70-6.10); White Blood Count 8.45 K/ul (4.8-10.8)
[2022-08-16 07:44] LABS: BUN Creatinine Ratio 7.9 (10-20); Calcium 8.2 mg/dl (8.6-10.3); Est GFR (African American) 9.4 ml/min; Est GFR (Non-African American) 8.1 ml/min; Magnesium 1.9 mg/dl (1.7-2.4); Phosphorus 4.9 mg/dl (2.5-4.9); Potassium 3.2 mmol/L (3.5-5.1)
[2022-08-16 07:47] LABS: INR 1.1 (0.9-1.1); Prothrombin Time 12.2 Seconds (9.0-12.0)
[2022-08-16] MEDS: PANCREAZE (LIPASE 10,500U) CAP PO SCH ×3 (08:52→17:26)
[2022-08-16] MEDS: CALCIUM CARBONATE 500 MG CHEWABLE TAB PO SCH (08:53)
[2022-08-16] MEDS: CALCITRIOL 0.25 MCG CAPSULE PO SCH (08:53)
[2022-08-16] MEDS: SEVELAMER HCL 800 MG TABLET PO SCH ×3 (08:53→17:26)
[2022-08-16] MEDS: CHOLECALCIFEROL 1,000 UNITS 25 MCG TAB PO SCH (08:54)
--- NOTE | 2022-08-16 09:42 | Hospitalist Progress Note ---
Date of Service August 16, 2022 Assessment & Plan (1) ANDREA (acute kidney injury): Plan: Acute renal failure on ckd 4 -Presented with advanced kidney dysfunction associated with diarrhea. Notable metabolic acidosis. Started on hemodialysis emergently on 08/13 via R femoral HD catheter, which he tolerated well * Nephrology consulted and managing- dialysis schedule. Electrolyte repletion per nephrology. 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 Has femoral cath for HD currently - no vascular surgery service currently. Will need HD permcath * Renvela with meals for hyperphosphatemia UTI with sepsis -BCx negative -UCx growing E Coli + enterococcus. Will transition ceftriaxone to Augmentin for dual organism coverage Concern of tick born illness -Tickborne illness panel confirmatory PCR pending. Continue doxycycline in interim- IV converted to PO -Clinically improving, afebrile, symptom resolution Atrial fibrillation s/p AVR - mechanical valve -Rate-controlled Anticoagulation -Continue home warfarin regimen -INR 1.1, subtherapeutic, goal of 2.5-3.5 -Initiated heparin infusion today for anticoagulation, warfarin load given 10 mg -Trend PT/INR Pancytopenia, setting of multiple myeloma Chronic normocytic anemia -Baseline appears Hgb 8-9 -Elevated ferritin, no signs of hemolysis on peripheral smear. -S/p Epogen 40,000 units, PRBC x2 units with HD on 08/13. 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 * Trend hemoglobin. Transfuse Hgb < 7 -Currently at baseline, monitor CBC Thrombocytopenia -Chronic, at baseline -No acute bleeding suspected at present -Monitor CBC Hypocalcemia- improving * Calcitriol 0.5 mcg daily. * Continue daily calcium carbonate 500 mg daily * Trend with morning labs Code: Full code Dispo: Medical-surgical with telemetry FEN/GI: Renal dialysis DVT Prophylaxis: Warfarin 5 mg q. Tuesday; 2.5 mg q. Tuesday-Tuesday. Heparin IV initiated today PT/OT: Yes Consults: Nephrology Case Management: Yes (2) Acute uremia: (3) Acute dehydration: (4) Hematuria, microscopic: (5) Urinary retention: (6) Chronic kidney disease: (7) Pancreatic lesion: (8) Secondary hyperparathyroidism: (9) S/P AVR (aortic valve replacement): (10) Elevated prostate specific antigen (PSA): (11) Paroxysmal A-fib: (12) Anemia: (13) Multiple myeloma: (14) Metabolic acidosis: (15) Acute renal failure: (16) Complicated urinary tract infection: Admission and Anticipated Discharge Date Admission Date: August 12, 2022 Supervising Physician Co-Signing Physician Notes Resident Physician Supervision Note: I independently interviewed and examined the patient and verified the taylor history and physical, reviewed labs and image studies and agree with resident findings and care plan. Subjective Acute events overnight- none. Pt examined at bedside. Continues to report mild neck stiffness but it has improved since day prior. He does feel well overall, denies any dysuria, fever, chills, abdominal pain or easy bruising/bleeding. Review of Systems Review of Systems: Per HPI Physical Exam Physical Exam: General: No acute distress HEENT: Normal conjunctiva, anicteric sclera. Oropharynx normal. Respiratory: Normal respiratory effort, CTAB, unlabored respirations. Cardiovascular: Irregularly irregular, without murmurs, gallops, or rubs. Loud S2 click. No pedal edema. GI: Soft, nontender, nondistended. Neuro: Alert and oriented x3. Skin: no central or peripheral pallor Results & Data Results & Data Vital Signs (Past 12 Hours) Vital Signs Temp Pulse Pulse Resp BP Pulse Ox O2 Del Method 08/16/22 08:00 79 08/16/22 07:47 36.6 C 63 16 138/65 96 Room Air 08/16/22 04:23 37.2 C 70 18 148/55 H 90 Room Air 08/16/22 00:15 80 08/15/22 22:58 36.9 C 76 18 139/67 97 Room Air Resident Activity Tracking Resident Involvement: Resident Care Provided Care Provided: Adult Hospital Medicine
[2022-08-16] MEDS ORDERED: POTASSIUM CHLORIDE CRTAB 20 MEQ TABCR PO STA (09:51)
[2022-08-16] MEDS ORDERED: POTASSIUM CHLORIDE PWD 20 MEQ PACK PO ONE (10:40)
[2022-08-16] MEDS ORDERED: Heparin IV Adult Wt-Based Standard *NO* Bolus Protocol IV SCH (11:01)
[2022-08-16] MEDS ORDERED: WARFARIN SOD 10 MG TAB PO ONE (11:30)
[2022-08-16] MEDS: HEPARIN SODIUM/DEXTROSE 25,000 UNITS/500 ML BAG IV SCH (11:35)
[2022-08-16 12:17] LABS: Free Kappa 98.4 mg/L (3.3-19.4); Free Kappa/Lambda Ratio 1.68 (0.26-1.65); Free Lambda 58.5 mg/L (5.7-26.3)
--- NOTE | 2022-08-16 12:29 | Nephrology Progress Note ---
Date of Service August 16, 2022 Assessment & Plan (1) ANDREA (acute kidney injury): Plan: Baseline CKD IV (creatinine ~4 mg/dL). Presented with advanced kidney dysfunction in the setting of acute GI symptoms and dehydration. Notable metabolic acidosis on admission. Started on HD emergently 08/13 via a R femoral HD catheter. 2nd treatment completed 08/14. Volume status acceptable. Electrolytes controlled. No emergent indication for dialysis today. Will plan next treatment tomorrow. Unfortunately, no signs of renal recovery. Messi will require a HD permcath for continued dialysis treatment. Unfortunately, we do not have a surgeon available for catheter placement at this time. 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 I told Messi this morning that we will monitor for the next 24 hours, labs will be repeated tomorrow AM. If creatinine continues to rise, I will arrange HD tomorrow and discuss arrangements for outpatient HD at [facility] with Dr. Zhang. Once next HD treatment is completed, femoral catheter can be removed when a plan is in place for permcath placement. For hypokalemia, KCl 20 mEq PO provided this AM. Medications are appropriately dosed for IHD. Avoid dietary restrictions. For hyperphosphatemia, continue Renvela with meals. (2) Acute uremia: Plan: Improved with HD x 2. Monitoring for renal recovery but Messi is advised that findings are suggestive of more chronic kidney dysfunction and prognosis for recovery of kidney function is poor. (3) Anemia: Plan: Epogen 79770 units provided 08/13. 2 unit PRBC support provided with HD 08/14. Appreciate hematology consultation. (4) Hypocalcemia: Plan: Continue calcitriol to 0.5 mcg daily. Continue calcium carbonate as Rx. Recheck tomorrow AM. (5) Metabolic acidosis: Plan: Improved with replacement and HD. HCO3 gtt and PO supplement have been discontinued. Admission and Anticipated Discharge Date Admission Date: August 12, 2022 Subjective No acute events overnight. No complaints this AM. Nausea improving. Denies fluid retention or edema. Appetite fair. Review of Systems Review of Systems: All systems reviewed & are unremarkable except as noted in HPI & below Physical Exam Constitutional: well developed; no acute distress Eyes: sclerae not anicteric and no corneal abnormality ENMT: Mouth: no oral mucosal abnormality Neck: trachea midline, no thyromegaly Respiratory: normal respiratory effort, lungs clear to auscultation Cardiovascular: Rate/Rhythm: + irregularly irregular Heart Sounds: + click (prosthetic S2) Vessels: no JVD Extremities: no edema Musculoskeletal: Extremities: no cyanosis and no clubbing Skin: normal turgor; no jaundice Neurologic: Speech / Cognition: normal speech and normal cognition Results & Data Vital Signs (Past 12 Hours) Vital Signs Temp Pulse Pulse Resp BP Pulse Ox O2 Del Method 08/16/22 12:00 37 C 68 16 157/68 H 94 Room Air 08/16/22 08:00 79 08/16/22 07:47 36.6 C 63 16 138/65 96 Room Air 08/16/22 04:23 37.2 C 70 18 148/55 H 90 Room Air Laboratory Results Laboratory Results - last 24 hr 08/14/22 08/15/22 08/16/22 09:59 18:33 06:46 WBC 8.45 RBC 2.86 L Hgb 8.6 L Hct 25.4 L MCV 88.8 MCH 30.1 MCHC 33.9 RDW Std Deviation 52.4 H RDW Coeff of Berto 15.9 H Plt Count 111 L MPV 11.4 PT 12.2 H INR 1.1 Sodium Potassium Chloride Carbon Dioxide Anion Gap BUN Creatinine Est Cr Clr Drug Dosing Est GFR ( Amer) Est GFR (Non-Af Amer) BUN/Creatinine Ratio Glucose Calcium Phosphorus Magnesium Albumin Free [place] LC, Quant 98.4 H Free Lambda LC, Quant 58.5 H Free [place]/Lambda Ratio 1.68 H 08/16/22 08/16/22 06:46 06:46 WBC RBC Hgb Hct MCV MCH MCHC RDW Std Deviation RDW Coeff of Berto Plt Count MPV PT 12.2 H INR 1.1 Sodium 140 Potassium 3.2 L Chloride 100 Carbon Dioxide 28 Anion Gap 12 H BUN 48 H Creatinine 6.06 H* D Est Cr Clr Drug Dosing 10.0 Est GFR ( Amer) 9.4 Est GFR (Non-Af Amer) 8.1 BUN/Creatinine Ratio 7.9 L Glucose 111 H Calcium 8.2 L Phosphorus 4.9 Magnesium 1.9 Albumin 3.0 L Free [place] LC, Quant Free Lambda LC, Quant Free [place]/Lambda Ratio PG Care Time/CCT Total # of Minutes Spent Total Time Spent with Patient: Total time spent is greater than 50% in coordination of care (as documented) at patient's floor/unit and/or counseling patient: Coding Level of Care Code 76368 SUB INP/OBS CARE MIN Diagnoses ANDREA (acute kidney injury) N17.9 Acute uremia N19 Anemia D64.9 Hypocalcemia E83.51 Metabolic acidosis E87.20
[2022-08-16] MEDS ORDERED: AMOXICILLIN/CLAVULANATE 875 MG TAB PO SCH (17:00)
[2022-08-16] MEDS: WARFARIN SOD 5 MG TAB PO SCH (17:26)
[2022-08-16 19:17] LABS: Partial Thromboplastin Ratio 1.8
[2022-08-16 19:38] LABS: Partial Thromboplastin Time 50.6 Seconds (21.0-31.0)
[2022-08-16] MEDS: ACETAMINOPHEN 325 MG TAB PO PRN (20:03)
[2022-08-16] MEDS: DOXYCYCLINE HYCLATE 100 MG CAP PO SCH (20:04)
[2022-08-16] MEDS: TAMSULOSIN HCL 0.4 MG CAP PO SCH (20:04)
[2022-08-17] MEDS: HEPARIN SODIUM/DEXTROSE 25,000 UNITS/500 ML BAG IV SCH ×2 (06:36→13:47)
[2022-08-17 07:51] LABS: Hematocrit (blood only) 24.4 % (42.0-52.0); Hemoglobin 8.3 g/dl (14.0-18.0); Mean Corpuscular Volume 88.1 fL (80.0-100.0); Mean Platelet Volume 10.8 fL (9.4-12.4); Platelet Count 107 K/uL (130-400); RDW Coefficient of Variation 15.9 % (11.5-14.5); Red Blood Count 2.77 M/uL (4.70-6.10)
[2022-08-17 08:21] LABS: Calcium 8.2 mg/dl (8.6-10.3); Creatinine Clr Calc Pharmacy 8.7 ml/min; Est GFR (African American) 7.9 ml/min; Est GFR (Non-African American) 6.8 ml/min; Potassium 3.3 mmol/L (3.5-5.1)
[2022-08-17] MEDS ORDERED: POTASSIUM CHLORIDE CRTAB 20 MEQ TABCR PO STA (08:24)
[2022-08-17 08:34] LABS: INR 1.4 (0.9-1.1); Prothrombin Time 15.3 Seconds (9.0-12.0)
[2022-08-17] MEDS: PANCREAZE (LIPASE 10,500U) CAP PO SCH ×3 (08:46→16:34)
[2022-08-17] MEDS: CALCITRIOL 0.25 MCG CAPSULE PO SCH (08:46)
[2022-08-17] MEDS: AMOXICILLIN/CLAVULANATE 500 MG TAB PO SCH ×2 (08:46→16:34)
[2022-08-17] MEDS: SEVELAMER HCL 800 MG TABLET PO SCH ×3 (08:46→16:34)
[2022-08-17] MEDS: CALCIUM CARBONATE 500 MG CHEWABLE TAB PO SCH (08:47)
[2022-08-17] MEDS: CHOLECALCIFEROL 1,000 UNITS 25 MCG TAB PO SCH (08:47)
--- NOTE | 2022-08-17 09:52 | Hospitalist Progress Note ---
Date of Service August 17, 2022 Assessment & Plan (1) ANDREA (acute kidney injury): Plan: Mr. Londono is a 77 yo male with an extensive pmh of CKD stage 4 with Cordero cathete r, atrial fibrillation, mechanical aortic valve on coumadin, and multiple myeloma who is presenting with ESRD and UTI with sepsis. Acute renal failure on ckd 4 -Presented with advanced kidney dysfunction associated with diarrhea. Metabolic acidosis has resolved. Started on hemodialysis emergently on 08/13 via R femoral HD catheter, which he tolerated well * Dialysis again today. * Nephrology consulted and managing- dialysis schedule. Electrolyte repletion per nephrology. 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 Has femoral cath for HD currently - no vascular surgery service currently. * Awaiting HD permcath. Consulted Dr. Macias and Case Management * Renvela with meals for hyperphosphatemia UTI with sepsis due to cordero catheter POA Sepsis POA -BCx negative -UCx growing E Coli + enterococcus. Augmentin PO for dual organism coverage Concern of tick born illness -Tickborne illness panel confirmatory PCR pending. Continue doxycycline in interim- IV converted to PO -Clinically improving, afebrile, symptom resolution Atrial fibrillation s/p AVR - mechanical valve -Rate-controlled Anticoagulation -Continue home warfarin regimen -INR 1.1, subtherapeutic, goal of 2.5-3.5 -Initiated heparin infusion today for anticoagulation, warfarin load given 10 mg -Trend PT/INR Pancytopenia, setting of multiple myeloma (h/o stem cell transplant) Chronic normocytic anemia -At baseline 8.3. Baseline appears Hgb 8-9 -Elevated ferritin, no signs of hemolysis on peripheral smear. -S/p Epogen 40,000 units, PRBC x2 units with HD on 08/13. 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 * Trend hemoglobin. Transfuse Hgb < 7 -Currently at baseline, monitor CBC Thrombocytopenia -Chronic, at baseline -No acute bleeding suspected at present -Monitor CBC Hypocalcemia- improving * Calcitriol 0.5 mcg daily. * Continue daily calcium carbonate 500 mg daily * Trend with morning labs Code: Full code Dispo: Medical-surgical with telemetry FEN/GI: Renal dialysis DVT Prophylaxis: Warfarin 5 mg q. Tuesday; 2.5 mg q. Tuesday-Kevin. Heparin IV initiated today PT/OT: Yes Consults: Nephrology Case Management: Yes Admission and Anticipated Discharge Date Admission Date: August 12, 2022 Supervising Physician Co-Signing Physician Notes Medical Student Supervision Note: I was personally present during medical student patient encounter and independently interviewed and examined the patient and verified the taylor history and physical, reviewed labs and image studies, discussed the case with Taryn Reed and agree with the findings and care plan. ANDREA on stage 4 ckd - likely progressed to ESRD - continue HD via femoral line. Perm cath placement on tuesday. calcium/phos management. s/p Epogen and PRBC for anemia UTI with sepsis due to cordero catheter POA - E coli and enterococcus - continue augmentin s/p AVR with mechnical valve - IV heparin drip. INR 1.4. Will need warfarin held again and IV heparin drip for bridging prior to perm cath placement on tuesday Subjective No acute events over night. Today he feels well. Review of Systems Review of Systems: Per HPI Physical Exam Physical Exam: General: No acute distress HEENT: Normal conjunctiva, anicteric sclera. Oropharynx normal. Respiratory: Normal respiratory effort, CTAB, unlabored respirations. Cardiovascular: Irregularly irregular, without murmurs, gallops, or rubs. Loud S2 click. No pedal edema. GI: Soft, nontender, nondistended. Neuro: Alert and oriented x3. Skin: no central or peripheral pallor Results & Data Results & Data Vital Signs (Past 12 Hours) Vital Signs Temp Pulse Pulse Pulse Resp BP Pulse Ox 08/17/22 07:00 36.9 C 85 17 152/66 H 96 08/16/22 21:59 97 H 08/17/22 03:06 37.1 C 82 18 150/67 H 96 08/16/22 22:00 36.8 C 96 H 18 150/67 H 94 O2 Del Method 08/17/22 07:00 Room Air 08/16/22 21:59 08/17/22 03:06 Room Air 08/16/22 22:00 Room Air Laboratory Results 08/17/22 06:55 08/17/22 06:55
[2022-08-17] MEDS: DOXYCYCLINE HYCLATE 100 MG CAP PO SCH ×2 (10:22→20:08)
[2022-08-17 13:23] LABS: Partial Thromboplastin Ratio 2.8
[2022-08-17 13:45] LABS: Partial Thromboplastin Time 79.4 Seconds (21.0-31.0)
--- NOTE | 2022-08-17 14:42 | Surgery Consultation ---
Date of Consultation August 17, 2022 Assessment & Plan (1) Chronic kidney disease: General surgery team was consulted for a perm cath placement given the patients acute kidney injury without indication of recovery, it is suspected patient has developed ESRD. Patient is scheduled for a perm cath placement on 08/23/[address] Delgado. Will discuss when to hold blood thinners with surgeon. As above. We will plan right internal jugular permacath on Tuesday after the Coumadin washes out. Discussed with internal medicine. Discussed with the patient as well regarding what to expect intraoperatively and postoperatively as well as discussed risks. We will keep his right subclavian Mediport as he does use this occasionally still. History of Present Illness Reason for Consultation: Patient is a 77 y old male with PMH ANDREA, CKD, aortic valve replacement, afib, multiple myeloma. PT presented to the ER on 08/12/22 with c/o fatigue, decreased po intake and feeling achy. Pt was admitted to the hospitalist service. General surgery team was consulted for a perm cath placement given the patients acute kidney injury without indication of recovery, it is suspected patient has developed ESRD. Attending Physician: Eve Arndt MD Allergies Allergy/AdvReac Type Severity Reaction Status Date / Time ASHLEY Inhibitors AdvReac Intermediate COUGH Verified 08/12/22 16:47 acetic acid AdvReac Intermediate Swelling Verified 08/12/22 16:47 of Lip/Tongue/Throat Home Medications Medication Instructions Recorded Confirmed Type simvastatin 20 mg tablet 20 mg PO DAILY #90 tabs 08/11/21 08/12/22 Rx cholecalciferol (vitamin D3) 25 2,000 unit PO QAM #30 caps 04/08/22 08/12/22 Rx mcg (1,000 unit) capsule sodium bicarbonate 650 mg tablet 1,300 mg PO BID #60 tabs 04/08/22 08/12/22 Rx metoprolol tartrate 50 mg tablet 50 mg PO BID #60 tabs 04/19/22 08/12/22 Rx urvcnf-rlnwamis-vsaotex 1 cap PO TIDM #90 caps 05/14/22 08/12/22 Rx 36,000-114,000-180,000 unit capsule,delay rel (Creon) loperamide 2 mg capsule 2 mg PO Q3H PRN loose stool #30 07/01/22 08/12/22 Rx caps calcitriol 0.25 mcg capsule 0.25 mcg PO DAILY #30 caps 07/07/22 08/12/22 Rx tamsulosin 0.4 mg capsule 0.4 mg PO HS #30 caps 07/07/22 08/12/22 Rx potassium chloride 20 mEq oral 20 meq PO DAILY #30 ea 07/28/22 08/12/22 Rx packet warfarin 5 mg tablet 5 mg PO .COMPLEX #30 tabs 08/02/22 08/12/22 Rx furosemide 80 mg tablet 80 mg PO BID 08/12/22 08/12/22 History Patient History Medical History Anemia Atrial fibrillation Complicated urinary tract infection Diarrhea Dyslipidemia Elevated prostate specific antigen (PSA) Hypertension Hypokalemia Metabolic acidosis Multiple myeloma Supratherapeutic INR Surgical History H/O stem cell transplant S/P AVR (aortic valve replacement) Family History Mother Alzheimer disease Sister Breast cancer Father Myocardial infarction Denies family history of Ovarian cancer Prostate cancer Colorectal cancer Social History Smoking Status: Never smoker Second Hand Exposure: No; Do You Dip or Chew Tobacco: No; Tobacco Cessation Education Requested by Patient: No Hx Alcohol Use: No Hx Substance Use: No Preferred Language: Maltese Communication Ability: Effective Assistant Coach Required: No Beliefs That Will Affect Care: None marital status: Current Living Situation: Spouse Current Living Situation Comment: with current occupational status: employed current occupation: [employer] Other Information That Helps Us Care for You: No Feels Safe at Home: Yes Safety Concerns: Feels Safe At This Time Childhood Exposure to Second-Hand Smoke: No Diet: low salt Dental Care, Regularly: Yes Physical Activity Frequency: 1-2 Times per Week Physical Activity Frequency Comment: walk Seatbelt Use: always Sunscreen Use: Yes Assistive Devices: Cane and Walker Review of Systems Constitutional: no fever, no chills and no sweats Respiratory: no cough and no dyspnea Cardiovascular: no chest pain and no dyspnea Genitourinary: + problem reported (Chandler catheter in place) Physical Exam Physical Exam: alert/ oriented Constitutional: cooperative and comfortable Respiratory: normal respiratory effort; normal respiratory pattern Cardiovascular: Rate/Rhythm: regular rate Skin: port noted on upper right side chest Genitourinary: Chandler catheter Results & Data Vital Signs (Past 12 Hours) Vital Signs Temp Pulse Pulse Pulse Pulse Resp BP 08/17/22 12:05 97.7 F 78 08/17/22 11:30 81 135/73 08/17/22 10:30 77 148/68 H 08/17/22 11:00 81 135/71 08/17/22 10:00 80 141/71 H 08/17/22 09:30 78 130/71 08/17/22 09:00 80 152/72 H 08/17/22 08:44 80 162/86 H 08/17/22 08:38 98.1 F 86 08/17/22 08:00 87 08/17/22 07:00 98.4 F 85 17 08/17/22 03:06 98.8 F 82 18 BP BP Pulse Ox O2 Del Method 08/17/22 12:05 139/68 08/17/22 11:30 08/17/22 10:30 08/17/22 11:00 08/17/22 10:00 08/17/22 09:30 08/17/22 09:00 08/17/22 08:44 08/17/22 08:38 08/17/22 08:00 08/17/22 07:00 152/66 H 96 Room Air 08/17/22 03:06 150/67 H 96 Room Air PG Care Time/CCT Total # of Minutes Spent Total Time Spent with Patient: Total time spent is greater than 50% in coordination of care (as documented) at patient's floor/unit and/or counseling patient: Coding Level of Care Code 18528 INT INP/OBS CARE 3/75MIN Diagnoses Chronic kidney disease N18.9
--- NOTE | 2022-08-17 16:15 | Nephrology Progress Note ---
Date of Service August 17, 2022 Assessment & Plan (1) ANDREA (acute kidney injury): Plan: Baseline CKD IV (creatinine ~4 mg/dL since February). Multiple episodes of ANDREA. Unfortunately, Messi has become dependent on [employer]. Clinical history supportive of ESKD. I've discussed these concerns with Messi. We discussed need for outpatient HD arrangements. Referral has been made to [facility] and I have been in contact with the self contained behavior unit teacher. General surgery has been consulted for permcath placement. Messi started on HD emergently 08/13 via a R femoral HD catheter. 2nd treatment completed 08/14. 3rd treatment completed today. We were able to use a 4 K bath for treatment today. Medications are appropriately dosed for IHD. Avoid dietary restrictions. For hyperphosphatemia, continue Renvela with meals. (2) Anemia: Plan: Epogen 63951 units provided 08/13. 2 unit PRBC support provided with HD 08/14. Appreciate hematology consultation. (3) Hypocalcemia: Plan: Continue calcitriol to 0.5 mcg daily. Continue calcium carbonate as Rx. Admission and Anticipated Discharge Date Admission Date: August 12, 2022 Subjective No acute events overnight. Messi was seen and evaluated during hemodialysis this morning. I discussed the plan of care with Dr. Arndt and Dr. Delgado. Messi is tolerating dialysis well. No complications with treatment. He admits to some weakness and deconditioning but is resistant to the idea of inpatient rehab. GI symptoms improved. Appetite fair. No fevers or chills. HD catheter functioning well. Review of Systems Review of Systems: All systems reviewed & are unremarkable except as noted in HPI & below Physical Exam Constitutional: well developed and + frail appearing; no acute distress Eyes: sclerae not anicteric and no corneal abnormality ENMT: Mouth: + dry oral mucous membranes; no oral mucosal abnormality Neck: trachea midline, no thyromegaly Respiratory: normal respiratory effort, lungs clear to auscultation Cardiovascular: Rate/Rhythm: + irregularly irregular Heart Sounds: + click (prosthetic S2) Vessels: no JVD Extremities: no edema Gastrointestinal (Abdomen): Percussion/Palpation: abdomen nontender and no guarding Musculoskeletal: Extremities: no cyanosis and no clubbing Skin: normal turgor; no jaundice Neurologic: Speech / Cognition: normal speech and normal cognition Results & Data Vital Signs (Past 12 Hours) Vital Signs Temp Pulse Pulse Pulse Resp BP BP 06/27/23 15:22 36.8 C 89 20 135/58 L 08/17/22 12:05 36.5 C 78 08/17/22 11:30 81 135/73 08/17/22 10:30 77 148/68 H 08/17/22 11:00 81 135/71 08/17/22 10:00 80 141/71 H 08/17/22 09:30 78 130/71 08/17/22 09:00 80 152/72 H 08/17/22 08:44 80 162/86 H 08/17/22 08:38 36.7 C 86 08/17/22 08:00 87 08/17/22 07:00 36.9 C 85 17 152/66 H BP Pulse Ox O2 Del Method 08/17/22 15:22 93 Room Air 08/17/22 12:05 139/68 08/17/22 11:30 08/17/22 10:30 08/17/22 11:00 08/17/22 10:00 08/17/22 09:30 08/17/22 09:00 08/17/22 08:44 08/17/22 08:38 08/17/22 08:00 08/17/22 07:00 96 Room Air Laboratory Results Laboratory Results - last 24 hr 08/16/22 08/17/22 08/17/22 18:21 06:55 06:55 WBC 8.10 RBC 2.77 L Hgb 8.3 L Hct 24.4 L MCV 88.1 MCH 30.0 MCHC 34.0 RDW Std Deviation 51.0 H RDW Coeff of Berto 15.9 H Plt Count 107 L MPV 10.8 PT 15.3 H INR 1.4 H APTT 50.6 H* PTT Ratio 1.8 Sodium Potassium Chloride Carbon Dioxide Anion Gap BUN Creatinine Est Cr Clr Drug Dosing Est GFR ( Amer) Est GFR (Non-Af Amer) BUN/Creatinine Ratio Glucose Calcium Hep Bs Antigen Hep Bs Ag Confirmation Hep Bs Antibody, Quant Hep B Core Total Ab 08/17/22 08/17/22 08/17/22 06:55 06:55 12:23 WBC RBC Hgb Hct MCV MCH MCHC RDW Std Deviation RDW Coeff of Berto Plt Count MPV PT INR APTT 79.4 H* PTT Ratio 2.8 Sodium 139 Potassium 3.3 L Chloride 101 Carbon Dioxide 29 Anion Gap 9 BUN 56 H Creatinine 7.02 H* D Est Cr Clr Drug Dosing 8.7 Est GFR ( Amer) 7.9 Est GFR (Non-Af Amer) 6.8 BUN/Creatinine Ratio 8.0 L Glucose 124 H Calcium 8.2 L Hep Bs Antigen Pending Hep Bs Ag Confirmation Pending Hep Bs Antibody, Quant Pending Hep B Core Total Ab Pending PG Care Time/CCT Total # of Minutes Spent Total Time Spent with Patient: Total time spent is greater than 50% in coordination of care (as documented) at patient's floor/unit and/or counseling patient: Coding Level of Care Code 18367 SUB INP/OBS CARE 3/50MIN Diagnoses ANDREA (acute kidney injury) N17.9 Anemia D64.9 Hypocalcemia E83.51
[2022-08-17] MEDS: WARFARIN SOD 2.5 MG TAB PO SCH (16:34)
[2022-08-17] MEDS: TAMSULOSIN HCL 0.4 MG CAP PO SCH (20:08)
[2022-08-17 21:39] LABS: Partial Thromboplastin Time 83.9 Seconds (21.0-31.0)
[2022-08-18 01:52] LABS: Babesia microti DNA Not Detected (Not Detected)
[2022-08-18] MEDS: HEPARIN SODIUM/DEXTROSE 25,000 UNITS/500 ML BAG IV SCH ×2 (02:09→10:27)
[2022-08-18 04:28] LABS: Mean Corpuscular Hemoglobin 30.1 pg (25.0-34.0); Mean Corpuscular Hgb Conc 33.3 g/dL (32.0-36.0); Mean Corpuscular Volume 90.2 fL (80.0-100.0); Mean Platelet Volume 11.8 fL (9.4-12.4); Platelet Count 91 K/uL (130-400); RDW Coefficient of Variation 15.5 % (11.5-14.5); RDW Standard Deviation 51.2 fL (36.4-46.3); Red Blood Count 2.66 M/uL (4.70-6.10)
[2022-08-18 04:45] LABS: Albumin Level 2.9 gm/dl (3.4-5.0); BUN Creatinine Ratio 6.1 (10-20); Calcium 8.3 mg/dl (8.6-10.3); Creatinine Clr Calc Pharmacy 13.7 ml/min; Est GFR (African American) 13.8 ml/min; Est GFR (Non-African American) 11.9 ml/min; Phosphorus 3.4 mg/dl (2.5-4.9); Potassium 3.6 mmol/L (3.5-5.1)
[2022-08-18 05:05] LABS: INR 1.8 (0.9-1.1); Partial Thromboplastin Ratio 2.8; Prothrombin Time 19.3 Seconds (9.0-12.0)
[2022-08-18 05:27] LABS: Partial Thromboplastin Time 78.3 Seconds (21.0-31.0)
--- NOTE | 2022-08-18 06:05 | Hospitalist Progress Note ---
Date of Service August 18, 2022 Assessment & Plan (1) Anemia: Plan: See summary below (2) Thrombocytopathia: Plan: See summary below (3) Multiple myeloma: Plan: See summary below Plan Serum protein electrophoresis is not yet reported out but his IgA levels are normal. Both kappa and lambda light chains are elevated and although the FLC ratio is slightly skewed, overall this is much more suggestive of secondary elevation due to decreased renal excretion than a concerning primary overproduction. Certainly the levels do not seem to be at a range that should be causing his renal issues or other threat and unless a renal or other biopsy were to show clear evidence of amyloid or immune infiltration, current values would not suggest the need for therapeutic intervention. Can return to the [facility] outpatient hematology/oncology team for ongoing review and monitoring but he seems to still be in remission with respect to his myeloma Anemia persists but this is in the context of his renal insufficiency. Remains at a nonthreatening level. With anticipated dialysis he could be approached with algorithmic iron support and CHRISTIANA's in conjunction with that Modest further decline in platelet counts but still well above the 50,000 numeric level that would be considered reasonable for anticoagulation though still with some ongoing bleeding risk especially with any uremic interference with platelet function. The fall remains well above 50% of his admission levels. He is on heparin but there is really no suggestion of HIT at this point though he is still within the 5-10 day window of assessment and if there were a more precipitous drop in the next several days that might need to be considered. More likely the platelets are a reflection of his acute illness especially if there is a consider potential element of tickborne infection. Also note that he did receive a dose of vancomycin on admission which may have some residual effect on thrombopoiesis Overall his hematologic picture does not seem to be immediately threatening. We do note again in the background the elevated PSA which may warrant separate work-up as he recovers as an outpatient but he has been followed by urology and can defer to that team. Also note his IPMN - I will suggest that GI should coordinate appropriate follow-up for that. If his counts are not recovering to expected levels over time, might consider whether marrow aspiration and biopsy would be warranted to assess for myelo dysplastic changes or the unlikely potential for prostate cancer infiltration the marrow. At this point, however, simple observation and basic supportive care would seem most appropriate. Will "sign off" but if he does have further deterioration of blood counts or especially as an outpatient does not return to good levels we will be happy to see him for further review. Would suggest he return to the [facility] hematology/oncology team as an outpatient to assure appropriate monitoring and any further work-up that might be required by persistent hematologic changes Admission and Anticipated Discharge Date Admission Date: August 12, 2022 Subjective Persistent anemia and mild thrombocytopenia but without dramatic change from previous nor any major bleeding complications Physical Exam Physical Exam: Vital signs and exam are stable Results & Data Results & Data Vital Signs (Past 12 Hours) Vital Signs Temp Pulse Pulse Pulse Pulse Resp BP 08/18/22 03:18 36.9 C 75 16 161/69 H 08/17/22 21:59 84 08/17/22 23:18 36.9 C 103 H 16 164/72 H 08/17/22 21:00 08/17/22 19:44 36.8 C 75 16 161/72 H 08/17/22 18:47 36.8 C 79 18 160/65 H Pulse Ox Pulse Ox O2 Del Method O2 Del Method 08/18/22 03:18 97 Room Air 08/17/22 21:59 08/17/22 23:18 96 Room Air 08/17/22 21:00 96 Room Air 08/17/22 19:44 97 Room Air 08/17/22 18:47 98 Room Air PG Care Time/CCT Total # of Minutes Spent Total Time Spent with Patient: Total time spent is greater than 50% in coordination of care (as documented) at patient's floor/unit and/or counseling patient: Coding Level of Care Code 99074 SUB INP/OBS CARE 1/25MIN Diagnoses Anemia D64.9 Thrombocytopathia D69.1 Multiple myeloma C90.00
--- NOTE | 2022-08-18 06:14 | Consultation ---
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 Attending Physician: Eve Arndt MD History of Present Illness Please also see my Allergies Allergy/AdvReac Type Severity Reaction Status Date / Time ASHLEY Inhibitors AdvReac Intermediate COUGH Verified 08/12/22 16:47 acetic acid AdvReac Intermediate Swelling Verified 08/12/22 16:47 of Lip/Tongue/Throat Home Medications Medication Instructions Recorded Confirmed Type simvastatin 20 mg tablet 20 mg PO DAILY #90 tabs 08/11/21 08/12/22 Rx cholecalciferol (vitamin D3) 25 2,000 unit PO QAM #30 caps 04/08/22 08/12/22 Rx mcg (1,000 unit) capsule sodium bicarbonate 650 mg tablet 1,300 mg PO BID #60 tabs 04/08/22 08/12/22 Rx metoprolol tartrate 50 mg tablet 50 mg PO BID #60 tabs 04/19/22 08/12/22 Rx ogaifi-bwvkxoff-hvambii 1 cap PO TIDM #90 caps 05/14/22 08/12/22 Rx 36,000-114,000-180,000 unit capsule,delay rel (Creon) loperamide 2 mg capsule 2 mg PO Q3H PRN loose stool #30 07/01/22 08/12/22 Rx caps calcitriol 0.25 mcg capsule 0.25 mcg PO DAILY #30 caps 07/07/22 08/12/22 Rx tamsulosin 0.4 mg capsule 0.4 mg PO HS #30 caps 07/07/22 08/12/22 Rx potassium chloride 20 mEq oral 20 meq PO DAILY #30 ea 07/28/22 08/12/22 Rx packet warfarin 5 mg tablet 5 mg PO .COMPLEX #30 tabs 08/02/22 08/12/22 Rx furosemide 80 mg tablet 80 mg PO BID 08/12/22 08/12/22 History Patient History Medical History Anemia Atrial fibrillation Complicated urinary tract infection Diarrhea Dyslipidemia Elevated prostate specific antigen (PSA) Hypertension Hypokalemia Metabolic acidosis Multiple myeloma Supratherapeutic INR Surgical History H/O stem cell transplant S/P AVR (aortic valve replacement) Family History Mother Alzheimer disease Sister Breast cancer Father Myocardial infarction Denies family history of Ovarian cancer Prostate cancer Colorectal cancer Social History Smoking Status: Never smoker Second Hand Exposure: No; Do You Dip or Chew Tobacco: No; Tobacco Cessation Education Requested by Patient: No Hx Alcohol Use: No Hx Substance Use: No Preferred Language: Beninese Communication Ability: Effective K 9 Police Officer Required: No Beliefs That Will Affect Care: None marital status: Current Living Situation: Spouse Current Living Situation Comment: with current occupational status: employed 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 Other Information That Helps Us Care for You: No Feels Safe at Home: Yes Safety Concerns: Feels Safe At This Time Childhood Exposure to Second-Hand Smoke: No Diet: low salt Dental Care, Regularly: Yes Physical Activity Frequency: 1-2 Times per Week Physical Activity Frequency Comment: walk Seatbelt Use: always Sunscreen Use: Yes Assistive Devices: Cane and Walker Results & Data Vital Signs (Past 12 Hours) Vital Signs Temp Pulse Pulse Pulse Pulse Resp BP 08/18/22 03:18 36.9 C 75 16 161/69 H 08/17/22 21:59 84 08/17/22 23:18 36.9 C 103 H 16 164/72 H 08/17/22 21:00 08/17/22 19:44 36.8 C 75 16 161/72 H 08/17/22 18:47 36.8 C 79 18 160/65 H Pulse Ox Pulse Ox O2 Del Method O2 Del Method 08/18/22 03:18 97 Room Air 08/17/22 21:59 08/17/22 23:18 96 Room Air 08/17/22 21:00 96 Room Air 08/17/22 19:44 97 Room Air 08/17/22 18:47 98 Room Air PG Care Time/CCT Total # of Minutes Spent Total Time Spent with Patient: Total time spent is greater than 50% in coordination of care (as documented) at patient's floor/unit and/or counseling patient: Coding Diagnoses
--- NOTE | 2022-08-18 07:59 | Hospitalist Progress Note ---
Date of Service August 18, 2022 Assessment & Plan (1) ADNREA (acute kidney injury): Plan: 77 year old with chronic kidney disease with a hx of renal failure, paroxysmal A Fib and mechanical aortic valve on Coumadin, HTN, HLD, secondary hyperparathyroidism, h/o multiple myeloma, asymptomatic cholelithiasis, and hx of pancreatic cysts who presented with fatigue and weakness. ANDREA on CKD4, possibly ESRD -Preceding diarrhea. S/p emergent hemodialysis for uremia with elevated anion gap metabolic acidosis on 08/13 via R femoral HD catheter -HD permacath placement tentatively on 08/23/22 -Continue phosphate and potassium binders -Hold home lasix. Hx of HFrEF -EF 35-40% on 04/28/22 echo, since resolved. -08/14/22 echo w/ EF 55-60%, no RWMA. Mildly dilated RV. Mild-mod MR. Mild pulm htn. -Hold home Lasix. Incomplete Is/Os, net pos. Not overtly hypervolemic on exam. -Need to med rec and determine dose of PO Lasix upon discharge, previously was on 80mg PO BID UTI (sepsis resolved) -BCx negative -UCx: pansen E Coli + enterococcus (tetracycline indeterminant). Ceftriaxone -> Augmentin as of 08/16 Atrial fibrillation -Currently sinus. Restart home metoprolol at half dosing 25mg PO BID Hypocalcemia, improved -Occurred in setting of hyperphosphatemia in setting of severe ANDREA -Continue calcitriol, calcium carbonate and vitamine D supp Chronic anticoagulation, afib and aortic mechanical valve -Coumadin held awaiting HD cath placement, on heparin drip -outpatient INR goal 2.5-3.5 Pancytopenia, setting of multiple myeloma Chronic normocytic anemia, baseline Hb 8-9 -No signs of hemolysis on peripheral smear. -S/p Epogen 40,000 units, PRBC x2 units with HD on 08/13. 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 Transfuse Hgb < 7 Hypertension -Metoprolol as per above HLD Continue home simvastatin F/E/N: Regular (avoid dietary restrictions per nephro) anticoag: heparin drip code: full dispo: med tele (2) Chronic kidney disease: (3) Hypertension: (4) Atrial fibrillation: (5) Anemia: (6) Hypocalcemia: Admission and Anticipated Discharge Date Admission Date: August 12, 2022 Supervising Physician Co-Signing Physician Notes Resident Physician Supervision Note: I independently interviewed and examined the patient and verified the taylor history and physical, reviewed labs and image studies and agree with resident findings and care plan. Subjective Patient is doing well. He denies any symptom complaints. Review of Systems Review of Systems: All systems reviewed & are unremarkable except as noted in HPI & below Physical Exam Physical Exam: General: Grossly A&O. NAD. Cooperative. HEENT: Atraumatic, normocephalic. Pulm: CTAB. -wheezes, -rales, -rhonchi. No accessory muscle use. Cardiac: RRR, crisp S2. Minimal pretibial edema on L. Abdominal: Nontender, nondistended, soft. : +cordero Results & Data Results & Data Vital Signs (Past 12 Hours) Vital Signs Temp Pulse Pulse Pulse Resp BP Pulse Ox 08/18/22 07:49 36.9 C 73 18 155/69 H 94 08/18/22 03:18 36.9 C 75 16 161/69 H 97 08/17/22 21:59 84 08/17/22 23:18 36.9 C 103 H 16 164/72 H 96 08/17/22 21:00 Pulse Ox O2 Del Method O2 Del Method 08/18/22 07:49 Room Air 08/18/22 03:18 Room Air 08/17/22 21:59 08/17/22 23:18 Room Air 08/17/22 21:00 96 Room Air Resident Activity Tracking Resident Involvement: Resident Care Provided Care Provided: Adult Hospital Medicine
[2022-08-18] MEDS: SEVELAMER HCL 800 MG TABLET PO SCH ×3 (09:27→17:04)
[2022-08-18] MEDS: AMOXICILLIN/CLAVULANATE 500 MG TAB PO SCH ×2 (09:27→17:05)
[2022-08-18] MEDS: CALCITRIOL 0.25 MCG CAPSULE PO SCH (09:27)
[2022-08-18] MEDS: CHOLECALCIFEROL 1,000 UNITS 25 MCG TAB PO SCH (09:27)
[2022-08-18] MEDS: DOXYCYCLINE HYCLATE 100 MG CAP PO SCH (09:27)
[2022-08-18] MEDS: PANCREAZE (LIPASE 10,500U) CAP PO SCH ×3 (09:28→17:04)
[2022-08-18] MEDS: CALCIUM CARBONATE 500 MG CHEWABLE TAB PO SCH (10:27)
[2022-08-18 12:19] LABS: Partial Thromboplastin Ratio 2.6
[2022-08-18 12:29] LABS: Partial Thromboplastin Time 74.3 Seconds (21.0-31.0)
[2022-08-18 12:46] LABS: Albumin 2.7 g/dL (3.8-4.8); Alpha 1 Globulin 0.5 g/dL (0.2-0.3); Alpha 2 Globulin 0.5 g/dL (0.5-0.9); Beta-1-Globulin 0.3 g/dL (0.4-0.6); Beta-2-Globulin 0.4 g/dL (0.2-0.5); Monoclonal Protein Band 1 DNR g/dL (NONE DETECTED); Monoclonal Protein Band 2 DNR g/dL (NONE DETECTED); Monoclonal Protein Band 3 DNR g/dL (NONE DETECTED); Total Protein 5.3 g/dL (6.1-8.1)
--- NOTE | 2022-08-18 13:40 | Nephrology Progress Note ---
Date of Service August 18, 2022 Assessment & Plan (1) ANDREA (acute kidney injury): Plan: Superimposed on advanced CKD and suggestive of progression to ESRD. This has been discussed with Messi. I also discussed with Messi's . Outpatient HD arrangements have been requested at [facility] under the care of Dr. Zhang for when Messi returns home. General surgery has been consulted for HD permcath placement. Scheduled for Tuesday. Messi started on HD emergently 08/13 via a R femoral HD catheter. He completed his third treatment yesterday. I will monitor daily and coordinate next treatment appropriately. Medications are appropriately dosed for IHD. Avoid dietary restrictions. For hyperphosphatemia, continue Renvela with meals. (2) Anemia: Plan: Epogen 77909 units provided 08/13. 2 unit PRBC support provided with HD 08/14. Appreciate hematology consultation. (3) Hypocalcemia: Plan: Continue calcitriol to 0.5 mcg daily. Calcium acceptable. Calcium carbonate may be stopped today. Admission and Anticipated Discharge Date Admission Date: August 12, 2022 Subjective No acute events overnight. Messi reports continued improvement in GI symptoms. He reports a very loose, watery bowel movement this morning with some urgency. He continues to deny melena or hematochezia. Appetite is fair. Messi tolerated HD well yesterday. There were no complications with treatment. He remains non-o liguric with good urine output. Review of Systems Review of Systems: All systems reviewed & are unremarkable except as noted in HPI & below Physical Exam Constitutional: well developed; no acute distress Eyes: sclerae not anicteric and no corneal abnormality ENMT: Mouth: + dry oral mucous membranes; no oral mucosal abnormality Neck: trachea midline, no thyromegaly Respiratory: normal respiratory effort, lungs clear to auscultation Cardiovascular: Rate/Rhythm: + irregularly irregular Heart Sounds: + click (prosthetic S2) Vessels: no JVD Extremities: no edema Gastrointestinal (Abdomen): Percussion/Palpation: abdomen nontender and no guarding Musculoskeletal: Extremities: no cyanosis and no clubbing L femoral permcath with clean exit site. Skin: normal turgor; no jaundice Neurologic: Speech / Cognition: normal speech and normal cognition Results & Data Vital Signs (Past 12 Hours) Vital Signs Temp Pulse Pulse Pulse Resp BP Pulse Ox 08/18/22 12:00 36.8 C 85 17 145/82 H 98 08/18/22 10:25 103 H 08/18/22 08:00 78 08/18/22 07:49 36.9 C 73 18 155/69 H 94 08/18/22 03:18 36.9 C 75 16 161/69 H 97 O2 Del Method 08/18/22 12:00 Room Air 08/18/22 10:25 08/18/22 08:00 08/18/22 07:49 Room Air 08/18/22 03:18 Room Air Laboratory Results Laboratory Results - last 24 hr 08/13/22 08/15/22 08/17/22 20:51 06:11 12:23 WBC RBC Hgb Hct MCV MCH MCHC RDW Std Deviation RDW Coeff of Berto Plt Count MPV PT INR APTT 79.4 H* PTT Ratio 2.8 Sodium Potassium Chloride Carbon Dioxide Anion Gap BUN Creatinine Est Cr Clr Drug Dosing Est GFR ( Amer) Est GFR (Non-Af Amer) BUN/Creatinine Ratio Glucose Calcium Phosphorus Total Protein (PEP) 5.3 L Albumin Albumin (PEP) 2.7 L Blwvb-8-Zrwnfkbwj 0.5 H Dlxwh-3-Qyrgusvlp 0.5 Odbx-1-Ovvxkpoc 0.3 L Zgzz-4-Gtygrpov 0.4 Gamma Globulins 1.0 Monoclonal Peak 3 DNR Ser Monoclonl Protein DNR Ser Monoclonal Prot 2 DNR PEP Interpretation SEE NOTE Babesia microti DNA PCR Not Detected 08/17/22 08/18/22 08/18/22 19:51 03:56 03:56 WBC 7.20 RBC 2.66 L Hgb 8.0 L Hct 24.0 L MCV 90.2 MCH 30.1 MCHC 33.3 RDW Std Deviation 51.2 H RDW Coeff of Berto 15.5 H Plt Count 91 L MPV 11.8 PT INR APTT 83.9 H* PTT Ratio 3.0 Sodium 137 Potassium 3.6 Chloride 106 Carbon Dioxide 25 Anion Gap 6 BUN 27 H D Creatinine 4.43 H D Est Cr Clr Drug Dosing 13.7 Est GFR ( Amer) 13.8 Est GFR (Non-Af Amer) 11.9 BUN/Creatinine Ratio 6.1 L Glucose 110 H Calcium 8.3 L Phosphorus 3.4 D Total Protein (PEP) Albumin 2.9 L Albumin (PEP) Nvhrd-6-Pjpqvsjso Qafjl-4-Fjagluvfm Feqj-4-Hqqzuqtx Mjwc-5-Fsswkshj Gamma Globulins Monoclonal Peak 3 Ser Monoclonl Protein Ser Monoclonal Prot 2 PEP Interpretation Babesia microti DNA PCR 08/18/22 08/18/22 03:56 11:12 WBC RBC Hgb Hct MCV MCH MCHC RDW Std Deviation RDW Coeff of Berto Plt Count MPV PT 19.3 H INR 1.8 H APTT 78.3 H* 74.3 H* PTT Ratio 2.8 2.6 Sodium Potassium Chloride Carbon Dioxide Anion Gap BUN Creatinine Est Cr Clr Drug Dosing Est GFR ( Amer) Est GFR (Non-Af Amer) BUN/Creatinine Ratio Glucose Calcium Phosphorus Total Protein (PEP) Albumin Albumin (PEP) Qjsch-9-Eymuionwl Zhmtc-5-Yjhiszyod Dpll-8-Hedfeiao Yxmf-3-Fsntqpgp Gamma Globulins Monoclonal Peak 3 Ser Monoclonl Protein Ser Monoclonal Prot 2 PEP Interpretation Babesia microti DNA PCR PG Care Time/CCT Total # of Minutes Spent Total Time Spent with Patient: Total time spent is greater than 50% in coordination of care (as documented) at patient's floor/unit and/or counseling patient: Coding Level of Care Code 14263 SUB INP/OBS CARE 3/50MIN Diagnoses ANDREA (acute kidney injury) N17.9 Anemia D64.9 Hypocalcemia E83.51
[2022-08-18 13:47] LABS: HBSAG NON-REACTIVE (NON-REACTIVE); Hepatitis B Core Antibody Total NON-REACTIVE (NON-REACTIVE); Hepatitis B Surface Ab, Quant <5 mIU/mL (> OR = 10)
[2022-08-18 19:36] LABS: Partial Thromboplastin Ratio 2.9
[2022-08-18 19:48] LABS: Partial Thromboplastin Time 80.7 Seconds (21.0-31.0)
[2022-08-18] MEDS: TAMSULOSIN HCL 0.4 MG CAP PO SCH (20:45)
[2022-08-18] MEDS: METOPROLOL TARTRATE 25 MG TAB PO SCH (21:53)
[2022-08-19] MEDS: HEPARIN SODIUM/DEXTROSE 25,000 UNITS/500 ML BAG IV SCH (00:34)
[2022-08-19 03:23] LABS: Partial Thromboplastin Ratio 2.3; Partial Thromboplastin Time 66.2 Seconds (21.0-31.0)
[2022-08-19 08:44] LABS: Hematocrit (blood only) 25.9 % (42.0-52.0); Hemoglobin 8.5 g/dl (14.0-18.0); Mean Corpuscular Hemoglobin 29.5 pg (25.0-34.0); Mean Corpuscular Hgb Conc 32.8 g/dL (32.0-36.0); Mean Corpuscular Volume 89.9 fL (80.0-100.0); Mean Platelet Volume 11.4 fL (9.4-12.4); Platelet Count 100 K/uL (130-400); RDW Standard Deviation 49.7 fL (36.4-46.3); Red Blood Count 2.88 M/uL (4.70-6.10); White Blood Count 9.34 K/ul (4.8-10.8)
[2022-08-19] MEDS: METOPROLOL TARTRATE 25 MG TAB PO SCH ×2 (08:57→21:30)
[2022-08-19] MEDS: SEVELAMER HCL 800 MG TABLET PO SCH ×3 (08:57→17:30)
[2022-08-19] MEDS: CALCITRIOL 0.25 MCG CAPSULE PO SCH (08:58)
[2022-08-19] MEDS: AMOXICILLIN/CLAVULANATE 500 MG TAB PO SCH ×2 (08:58→17:30)
[2022-08-19] MEDS: PANCREAZE (LIPASE 10,500U) CAP PO SCH ×3 (08:58→17:30)
[2022-08-19] MEDS: CHOLECALCIFEROL 1,000 UNITS 25 MCG TAB PO SCH (08:58)
[2022-08-19 09:11] LABS: BUN Creatinine Ratio 5.9 (10-20); Bilirubin,Total 0.4 mg/dl (0.2-1.0); Calcium 8.4 mg/dl (8.6-10.3); Creatinine Clr Calc Pharmacy 10.8 ml/min; Est GFR (African American) 10.5 ml/min; Globulin 3.1 gm/dl (2.5-4.0); Magnesium 1.8 mg/dl (1.7-2.4); Phosphorus 3.5 mg/dl (2.5-4.9); Potassium 3.6 mmol/L (3.5-5.1); Total Protein 6.1 gm/dl (6.0-8.3)
[2022-08-19 09:13] LABS: INR 2.1 (0.9-1.1); Prothrombin Time 22.2 Seconds (9.0-12.0)
--- NOTE | 2022-08-19 09:21 | Hospitalist Progress Note ---
Date of Service August 19, 2022 Assessment & Plan (1) ANDREA (acute kidney injury): Plan: 77 year old with chronic kidney disease with a hx of renal failure, paroxysmal A Fib and mechanical aortic valve on Coumadin, HTN, HLD, secondary hyperparathyroidism, h/o multiple myeloma, asymptomatic cholelithiasis, and hx of pancreatic cysts who presented with fatigue and weakness. ANDREA superimposed on CKD4, possibly ESRD -Preceding diarrhea. S/p emergent hemodialysis for uremia with HAGMA on 08/13 via R femoral HD catheter -Nephrology following -HD permanent catheter placement tentatively on 08/23/22 -Continue phosphate and potassium binders UTI (sepsis resolved) -BCx negative -UCx: pansensitive E Coli + enterococcus (tetracycline indeterminant). Ceftriaxone -> Augmentin as of 08/16 -Will complete Augmentin on 08/21 for 10 days of treatment Paroxysmal atrial fibrillation -Currently sinus -Continue home metoprolol at half dosing 25mg PO BID -Home warfarin held, anticoagulating with heparin at present Hypocalcemia, improved -Occurred in setting of hyperphosphatemia in setting of severe ANDREA -Continue calcitriol, calcium carbonate and vitamin D supplementation Chronic anticoagulation, s/p aortic mechanical valve -Coumadin held awaiting HD catheter placement, on heparin IV -outpatient INR goal 2 -3.5 Pancytopenia, setting of multiple myeloma Chronic normocytic anemia, baseline Hb 8-9 -No signs of hemolysis on peripheral smear. -S/p Epogen 40,000 units, PRBC x2 units with HD on 08/13. 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 Transfuse Hgb < 7 F/E/N: Renal dialysis diet code: full Dispo: Medical-surgical with telemetry DVT Prophylaxis: Warfarin held. Heparin IV ongoing Admission and Anticipated Discharge Date Admission Date: August 12, 2022 Supervising Physician Co-Signing Physician Notes Resident Physician Supervision Note: I independently interviewed and examined the patient and verified the taylor history and physical, reviewed labs and image studies and agree with resident findings and care plan. Subjective No acute events overnight. Denies any acute complaints. Awaiting permanent catheter placement on 08/23. Review of Systems Review of Systems: Per HPI Physical Exam Physical Exam: General: Grossly A&O. NAD. Cooperative. HEENT: Atraumatic, normocephalic. Pulm: CTAB. -wheezes, -rales, -rhonchi. No accessory muscle use Cardiac: RRR, normal S1 and S2, no murmurs noted Abdominal: Nontender, nondistended, soft : +Chandler catheter draining yellow urine Results & Data Results & Data Vital Signs (Past 12 Hours) Vital Signs Temp Pulse Pulse Resp BP BP Pulse Ox 08/19/22 08:44 36.5 C 85 18 139/65 97 08/19/22 07:14 75 08/18/22 22:21 92 H 08/19/22 00:25 36.6 C 68 20 161/64 H 99 O2 Del Method 08/19/22 08:44 Room Air 08/19/22 07:14 08/18/22 22:21 08/19/22 00:25 Room Air Resident Activity Tracking Resident Involvement: Resident Care Provided Care Provided: Adult Hospital Medicine
--- NOTE | 2022-08-19 10:59 | Surgery Progress Note ---
Date of Service August 19, 2022 Assessment & Plan (1) Chronic kidney disease: Plan: Agree he is a candidate for catheter for hemodialysis. He does have a right subclavian Mediport that they are using but I still should be able to place a right internal jugular permacath. We discussed bleeding infection malfunction of the catheter requiring explant or replacement vascular injury pneumothorax DVT etc. Following this I answered his questions. He agrees and the consent is signed. We will proceed with this on Tuesday. (2) Multiple myeloma: Admission and Anticipated Discharge Date Admission Date: August 12, 2022 Subjective Patient seen. Feeling better and better each day. Physical Exam Constitutional: WD/WN, vitals as above no acute distress and not ill appearing Eyes: PERRL, conjunctivae normal, anicteric sclerae EOM intact bilaterally ENMT: external ear and nose normal, oropharynx normal Ears: no hearing impairment Neck: trachea midline, no thyromegaly Respiratory: normal respiratory effort; no respiratory distress and does not use accessory muscles Cardiovascular: Rate/Rhythm: regular rate and regular rhythm Gastrointestinal (Abdomen): normal bowel sounds, soft, nontender, no hepatosplenomegaly Skin: no rashes, warm and dry Psychiatric: Orientation: alert, oriented x 3 and cooperative Results & Data Vital Signs (Past 12 Hours) Vital Signs Temp Pulse Pulse Resp BP BP Pulse Ox 08/19/22 08:44 36.5 C 85 18 139/65 97 08/19/22 07:14 75 08/19/22 00:25 36.6 C 68 20 161/64 H 99 O2 Del Method 08/19/22 08:44 Room Air 08/19/22 07:14 08/19/22 00:25 Room Air PG Care Time/CCT Total # of Minutes Spent Total Time Spent with Patient: Total time spent is greater than 50% in coordination of care (as documented) at patient's floor/unit and/or counseling patient: Coding Level of Care Code 24820 SUB INP/OBS CARE 2/35MIN Diagnoses Chronic kidney disease N18.9 Multiple myeloma C90.00
--- NOTE | 2022-08-19 12:57 | Nephrology Progress Note ---
Date of Service August 19, 2022 Assessment & Plan (1) ANDREA (acute kidney injury): Plan: Superimposed on advanced CKD and suggestive of progression to ESRD. Outpatient HD arrangements have been requested at [facility] under the care of Dr. Zhang. He will dialyze TTS starting at 10:30. General surgery has been consulted for HD permcath placement. Scheduled for Tuesday. Warfarin will need to be held with appropriate bridging heparin with INR normalized for the procedure. I will defer anticoagulation management to the hospitalist team. Messi started on HD emergently 08/13 via a R femoral HD catheter. Unfortunately, creatinine continues to rise between treatments with no evidence of renal recovery. Thankfully, he remains non-oliguric. I will plan next HD treatment for tomorrow. Medications are appropriately dosed for IHD. Avoid dietary restrictions. For hyperphosphatemia, continue Renvela with meals. (2) Anemia: Plan: Epogen 58168 units provided 08/13. 2 unit PRBC support provided with HD 08/14. Appreciate hematology consultation. (3) Hypocalcemia: Plan: Continue calcitriol to 0.5 mcg daily. Admission and Anticipated Discharge Date Admission Date: August 12, 2022 Subjective No acute events overnight. Out of bed and ambulating with PT this morning. Overall, Messi feels well. He denies any GI symptoms at this time. He denies fluid retention or edema. Appetite improving. Plans to return home after discharge. Review of Systems Review of Systems: All systems reviewed & are unremarkable except as noted in HPI & below Physical Exam Constitutional: well developed and + frail appearing; no acute distress Eyes: sclerae not anicteric and no corneal abnormality ENMT: Mouth: no oral mucosal abnormality and oral mucous membranes not dry Neck: trachea midline, no thyromegaly Respiratory: normal respiratory effort, lungs clear to auscultation Cardiovascular: Rate/Rhythm: regular rate Heart Sounds: + click (prosthetic S2) Vessels: no JVD Extremities: no edema Gastrointestinal (Abdomen): Percussion/Palpation: abdomen nontender and no guarding Musculoskeletal: Extremities: no cyanosis and no clubbing Skin: normal turgor; no jaundice Neurologic: Speech / Cognition: normal speech and normal cognition Results & Data Vital Signs (Past 12 Hours) Vital Signs Temp Pulse Pulse Resp BP Pulse Ox O2 Del Method 08/19/22 11:28 36.4 C L 69 17 166/68 H 97 Room Air 08/19/22 08:44 36.5 C 85 18 139/65 97 Room Air 08/19/22 07:14 75 Laboratory Results Laboratory Results - last 24 hr 08/17/22 08/18/22 08/19/22 06:55 18:33 01:47 WBC RBC Hgb Hct MCV MCH MCHC RDW Std Deviation RDW Coeff of Berto Plt Count MPV PT INR APTT 80.7 H* 66.2 H* PTT Ratio 2.9 2.3 Sodium Potassium Chloride Carbon Dioxide Anion Gap BUN Creatinine Est Cr Clr Drug Dosing Est GFR ( Amer) Est GFR (Non-Af Amer) BUN/Creatinine Ratio Glucose Calcium Phosphorus Magnesium Total Bilirubin AST ALT Alkaline Phosphatase Total Protein Albumin Globulin Albumin/Globulin Ratio Hep Bs Antigen NON-REACTIVE Hep Bs Ag Confirmation TNP Hep Bs Antibody, Quant <5 L Hep B Core Total Ab NON-REACTIVE 08/19/22 08/19/22 08/19/22 08:07 08:07 08:07 WBC 9.34 RBC 2.88 L Hgb 8.5 L Hct 25.9 L MCV 89.9 MCH 29.5 MCHC 32.8 RDW Std Deviation 49.7 H RDW Coeff of Berto 15.0 H Plt Count 100 L MPV 11.4 PT 22.2 H INR 2.1 H APTT PTT Ratio Sodium 138 Potassium 3.6 Chloride 106 Carbon Dioxide 24 Anion Gap 8 BUN 33 H Creatinine 5.56 H* D Est Cr Clr Drug Dosing 10.8 Est GFR ( Amer) 10.5 Est GFR (Non-Af Amer) 9.0 BUN/Creatinine Ratio 5.9 L Glucose 123 H Calcium 8.4 L Phosphorus 3.5 Magnesium 1.8 Total Bilirubin 0.4 AST 12 L ALT 6 L Alkaline Phosphatase 49 Total Protein 6.1 Albumin 3.0 L Globulin 3.1 Albumin/Globulin Ratio 1.0 Hep Bs Antigen Hep Bs Ag Confirmation Hep Bs Antibody, Quant Hep B Core Total Ab PG Care Time/CCT Total # of Minutes Spent Total Time Spent with Patient: Total time spent is greater than 50% in coordination of care (as documented) at patient's floor/unit and/or counseling patient: Coding Level of Care Code 85810 SUB INP/OBS CARE 3/50MIN Diagnoses ANDREA (acute kidney injury) N17.9 Anemia D64.9 Hypocalcemia E83.51
[2022-08-19] MEDS: TAMSULOSIN HCL 0.4 MG CAP PO SCH (21:30)
[2022-08-20] MEDS: HEPARIN SODIUM/DEXTROSE 25,000 UNITS/500 ML BAG IV SCH (00:57)
[2022-08-20 07:39] LABS: Basophils # (auto) 0.03 K/uL (0-0.2); Basophils % (auto) 0.3 %; Eosinophils # (auto) 0.54 K/uL (0-0.50); Eosinophils % (auto) 5.9 %; Hematocrit (blood only) 24.6 % (42.0-52.0); Hemoglobin 8.2 g/dl (14.0-18.0); Immature Granulocytes # (auto) 0.13 K/uL (0.01-0.20); Immature Granulocytes % (auto) 1.4 %; Lymphocytes % (auto) 8.7 %; Mean Corpuscular Hemoglobin 29.8 pg (25.0-34.0); Mean Corpuscular Hgb Conc 33.3 g/dL (32.0-36.0); Mean Corpuscular Volume 89.5 fL (80.0-100.0); Mean Platelet Volume 10.9 fL (9.4-12.4); Monocytes # (auto) 0.68 K/uL (0.11-0.59); Monocytes % (auto) 7.4 %; Neutrophils # (auto) 6.97 K/uL (1.40-6.50); Neutrophils % (auto) 76.3 %; Platelet Count 98 K/uL (130-400); RDW Coefficient of Variation 15.3 % (11.5-14.5); RDW Standard Deviation 49.3 fL (36.4-46.3); Red Blood Count 2.75 M/uL (4.70-6.10); White Blood Count 9.15 K/ul (4.8-10.8)
--- NOTE | 2022-08-20 07:48 | Hospitalist Progress Note ---
Date of Service August 20, 2022 Assessment & Plan (1) ANDREA (acute kidney injury): Plan: 77 year old with chronic kidney disease with a hx of renal failure, paroxysmal A Fib and mechanical aortic valve on Coumadin, HTN, HLD, secondary hyperparathyroidism, h/o multiple myeloma, asymptomatic cholelithiasis, and hx of pancreatic cysts who presented with fatigue and weakness. ANDREA superimposed on CKD4, possibly ESRD -Preceding diarrhea. S/p emergent hemodialysis for uremia with HAGMA on 08/13 via R femoral HD catheter -Nephrology following -HD permanent catheter placement tentatively on 08/23/22 -Continue phosphate and potassium binders UTI (sepsis resolved) -BCx negative -UCx: pansensitive E Coli + enterococcus (tetracycline indeterminant). Ceftriaxone -> Augmentin as of 08/16 -Will complete Augmentin on 08/21 for 10 days of treatment Concern for tick borne illness -Lyme Ab Babesia PCR and tickborne smear negative. Anaplasmosis PCR pending. Empiric doxycycline since 08/13 - 08/18 -Clinically improved, afebrile, symptoms resolved Paroxysmal atrial fibrillation -Currently sinus -Continue home metoprolol at half dosing 25mg PO BID -Home warfarin held, anticoagulating with heparin at present Hypocalcemia, improved -Occurred in setting of hyperphosphatemia in setting of severe ANDREA -Continue calcitriol, calcium carbonate and vitamin D supplementation Chronic anticoagulation, s/p aortic mechanical valve -Coumadin held awaiting HD catheter placement, on heparin IV -outpatient INR goal 2.5-3.5 Pancytopenia, setting of multiple myeloma Chronic normocytic anemia, baseline Hb 8-9 -No signs of hemolysis on peripheral smear. -S/p Epogen 40,000 units, PRBC x2 units with HD on 08/13. 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 Transfuse Hgb < 7 F/E/N: Renal dialysis diet code: full Dispo: Medical-surgical with telemetry DVT Prophylaxis: Warfarin held. Heparin IV ongoing Admission and Anticipated Discharge Date Admission Date: August 12, 2022 Supervising Physician Co-Signing Physician Notes Resident Physician Supervision Note: I independently interviewed and examined the patient and verified the taylor history and physical, reviewed labs and image studies and agree with resident findings and care plan. Subjective Patient seen at bedside this afternoon. Patient had just return from HD about twenty minutes prior. Patient feels very fatigued but otherwise feels well. Denies any pain. Also denies SOB, nausea, vomiting, and diarrhea. Review of Systems Review of Systems: See HPI Physical Exam Physical Exam: Constitutional: tired-appearing, no acute distress CV: regular rhythm, systolic click appreciated, extremities well-perfused Resp: CTABL, no wheezes/rales/rhonchi appreciated, no increased work of breathing Neuro: alert, oriented, no focal neurologic deficit appreciated Results & Data Results & Data Vital Signs (Past 12 Hours) Vital Signs Temp Pulse Pulse Resp BP BP Pulse Ox 08/20/22 07:23 83 08/20/22 03:45 36.4 C L 81 18 154/61 H 96 08/20/22 00:00 36.6 C 69 18 160/68 H 100 08/19/22 21:59 76 08/19/22 19:49 36.5 C 83 18 159/80 H 97 O2 Del Method 08/20/22 07:23 08/20/22 03:45 Room Air 08/20/22 00:00 Room Air 08/19/22 21:59 08/19/22 19:49 Room Air Resident Activity Tracking Resident Involvement: Resident Care Provided Care Provided: Adult Hospital Medicine
[2022-08-20 08:10] LABS: BUN Creatinine Ratio 5.9 (10-20); Calcium 8.3 mg/dl (8.6-10.3); Creatinine Clr Calc Pharmacy 9.9 ml/min; Est GFR (African American) 9.4 ml/min; Est GFR (Non-African American) 8.1 ml/min; Potassium 3.8 mmol/L (3.5-5.1)
[2022-08-20 08:21] LABS: INR 2.3 (0.9-1.1); Partial Thromboplastin Ratio 2.9
[2022-08-20] MEDS ORDERED: POTASSIUM CHLORIDE PWD 20 MEQ PACK PO ONE (08:29)
[2022-08-20 08:34] LABS: Partial Thromboplastin Time 81.4 Seconds (21.0-31.0)
--- NOTE | 2022-08-20 10:09 | Nephrology Progress Note ---
Date of Service August 20, 2022 Assessment & Plan (1) ANDREA (acute kidney injury): Plan: Superimposed on advanced CKD and suggestive of progression to ESRD. Outpatient HD arrangements coordinated to start next week on at [facility] under the care of Dr. Zhang. Messi will dialyze TTS starting at 10:30. HD permcath placement scheduled with Dr. Delgado for Tuesday. Anticoagulation management per the hospitalist team. Messi started on HD emergently 08/13 via a R femoral HD catheter. Unfortunately, creatinine continues to rise between treatments with no evidence of renal recovery. Thankfully, he remains non-oliguric. Orders for HD today were entered into the EHR and reviewed with the diesel fitter mechanic. Medications are appropriately dosed for IHD. Avoid dietary restrictions. For hyperphosphatemia, continue Renvela with meals. Plan next HD treatment Tuesday post HD catheter placement versus Tuesday. Femoral remains clean and intact pending permcath placement. (2) Anemia: Plan: Epogen 21677 units provided 08/13. 2 unit PRBC support provided with HD 08/14. Appreciate hematology consultation. Additional 77358 units Epogen now. (3) Hypocalcemia: Plan: Continue calcitriol to 0.5 mcg daily. Admission and Anticipated Discharge Date Admission Date: August 12, 2022 Subjective No acute events overnight. No complaints this AM. Messi was seen and evaluated prior to and during hemodialysis. He is tolerating dialysis well. Overall, he feels reasonably well. Continues to admit to some deconditioning and weakness but reports strength improving from walking in hallways. Tolerating dialysis well. Remains non-oliguric. Review of Systems Review of Systems: All systems reviewed & are unremarkable except as noted in HPI & below Physical Exam Constitutional: well developed and + frail appearing; no acute distress Eyes: sclerae not anicteric and no corneal abnormality ENMT: Mouth: + dry oral mucous membranes (slightly); no oral mucosal ab normality Neck: trachea midline, no thyromegaly Respiratory: normal respiratory effort, lungs clear to auscultation Cardiovascular: Rate/Rhythm: regular rate and + irregularly irregular Heart Sounds: + click (prosthetic S2) Vessels: no JVD Extremities: no edema Gastrointestinal (Abdomen): Percussion/Palpation: abdomen nontender and no guarding Musculoskeletal: Extremities: no cyanosis and no clubbing Skin: normal turgor; no jaundice Neurologic: Speech / Cognition: normal speech and normal cognition Results & Data Vital Signs (Past 12 Hours) Vital Signs Temp Pulse Pulse Pulse Resp BP BP 08/20/22 10:00 81 130/68 08/20/22 09:30 79 119/65 08/20/22 09:00 82 127/60 08/20/22 08:30 78 121/64 08/20/22 08:04 83 144/77 H 08/20/22 07:58 36.7 C 77 08/20/22 07:27 36.9 C 74 16 148/60 H 08/20/22 07:23 83 08/20/22 03:45 36.4 C L 81 18 154/61 H 08/20/22 00:00 36.6 C 69 18 160/68 H Pulse Ox O2 Del Method 08/20/22 10:00 08/20/22 09:30 08/20/22 09:00 08/20/22 08:30 08/20/22 08:04 08/20/22 07:58 08/20/22 07:27 98 Room Air 08/20/22 07:23 08/20/22 03:45 96 Room Air 08/20/22 00:00 100 Room Air Laboratory Results Laboratory Results - last 24 hr 08/20/22 08/20/22 08/20/22 06:46 06:46 06:46 WBC 9.15 RBC 2.75 L Hgb 8.2 L Hct 24.6 L MCV 89.5 MCH 29.8 MCHC 33.3 RDW Std Deviation 49.3 H RDW Coeff of [place] 15.3 H Plt Count 98 L MPV 10.9 Immature Gran % (Auto) 1.4 Neut % (Auto) 76.3 Lymph % (Auto) 8.7 [place] % (Auto) 7.4 Eos % (Auto) 5.9 Baso % (Auto) 0.3 Neut # (Auto) 6.97 H Lymph # (Auto) 0.80 L [place] # (Auto) 0.68 H Eos # (Auto) 0.54 H Baso # (Auto) 0.03 Immature Gran # (Auto) 0.13 PT 24.0 H INR 2.3 H APTT 81.4 H* PTT Ratio 2.9 Sodium 137 Potassium 3.8 Chloride 105 Carbon Dioxide 23 Anion Gap 9 BUN 36 H Creatinine 6.09 H* D Est Cr Clr Drug Dosing 9.9 Est GFR ( Amer) 9.4 Est GFR (Non-Af Amer) 8.1 BUN/Creatinine Ratio 5.9 L Glucose 100 H Calcium 8.3 L PG Care Time/CCT Total # of Minutes Spent Total Time Spent with Patient: Total time spent is greater than 50% in coordination of care (as documented) at patient's floor/unit and/or counseling patient: Coding Level of Care Code 06799 SUB INP/OBS CARE 3/50MIN Diagnoses ANDREA (acute kidney injury) N17.9 Anemia D64.9 Hypocalcemia E83.51
[2022-08-20] MEDS ORDERED: EPOETIN ALFA 40,000 UNITS/ML VIAL IV STA (10:18)
[2022-08-20] MEDS: PANCREAZE (LIPASE 10,500U) CAP PO SCH ×3 (12:13→16:58)
[2022-08-20] MEDS: SEVELAMER HCL 800 MG TABLET PO SCH ×3 (12:13→16:58)
[2022-08-20] MEDS: METOPROLOL TARTRATE 25 MG TAB PO SCH ×2 (12:13→21:08)
[2022-08-20] MEDS: CALCITRIOL 0.25 MCG CAPSULE PO SCH (12:14)
[2022-08-20] MEDS: AMOXICILLIN/CLAVULANATE 500 MG TAB PO SCH ×2 (12:14→16:57)
[2022-08-20] MEDS: CHOLECALCIFEROL 1,000 UNITS 25 MCG TAB PO SCH (12:14)
[2022-08-20 15:23] LABS: Partial Thromboplastin Ratio 3.2
[2022-08-20 16:07] LABS: Partial Thromboplastin Time 89.9 Seconds (21.0-31.0)
[2022-08-20] MEDS: TAMSULOSIN HCL 0.4 MG CAP PO SCH (21:09)
[2022-08-21 00:36] LABS: Partial Thromboplastin Ratio 2.4
[2022-08-21 00:53] LABS: Partial Thromboplastin Time 66.7 Seconds (21.0-31.0)
[2022-08-21 05:52] LABS: Hematocrit (blood only) 24.3 % (42.0-52.0); Hemoglobin 8.1 g/dl (14.0-18.0); Mean Corpuscular Hemoglobin 30.2 pg (25.0-34.0); Mean Corpuscular Hgb Conc 33.3 g/dL (32.0-36.0); Mean Corpuscular Volume 90.7 fL (80.0-100.0); Mean Platelet Volume 12.3 fL (9.4-12.4); Platelet Count 88 K/uL (130-400); RDW Coefficient of Variation 15.8 % (11.5-14.5); RDW Standard Deviation 51.5 fL (36.4-46.3); Red Blood Count 2.68 M/uL (4.70-6.10); White Blood Count 7.45 K/ul (4.8-10.8)
[2022-08-21 06:04] LABS: Calcium 8.2 mg/dl (8.6-10.3); Creatinine Clr Calc Pharmacy 14.5 ml/min; Est GFR (African American) 14.8 ml/min; Est GFR (Non-African American) 12.8 ml/min; Magnesium 1.7 mg/dl (1.7-2.4); Phosphorus 3.6 mg/dl (2.5-4.9); Potassium 3.8 mmol/L (3.5-5.1)
[2022-08-21 06:29] LABS: Partial Thromboplastin Ratio 2.6
--- NOTE | 2022-08-21 06:55 | Hospitalist Progress Note ---
Date of Service August 21, 2022 Assessment & Plan (1) ANDREA (acute kidney injury): Plan: 77 year old with chronic kidney disease with a hx of renal failure, paroxysmal A Fib and mechanical aortic valve on Coumadin, HTN, HLD, secondary hyperparathyroidism, h/o multiple myeloma, asymptomatic cholelithiasis, and hx of pancreatic cysts who presented with fatigue and weakness. ANDREA superimposed on CKD4, possibly ESRD -Preceding diarrhea. S/p emergent hemodialysis for uremia with HAGMA on 08/13 via R femoral HD catheter -Nephrology following -HD permanent catheter placement tentatively on 08/23/22 -Continue phosphate and potassium binders UTI (sepsis resolved) -BCx negative -UCx: pansensitive E Coli + enterococcus (tetracycline indeterminant). Ceftriaxone -> Augmentin as of 08/16 -Will complete Augmentin on 08/21 for 10 days of treatment Concern for tick borne illness -Lyme Ab Babesia PCR and tickborne smear negative. Anaplasmosis PCR pending. Empiric doxycycline since 08/13 - 08/18 -Clinically improved, afebrile, symptoms resolved Paroxysmal atrial fibrillation -Currently sinus -Continue home metoprolol at half dosing 25mg PO BID -Home warfarin held, anticoagulating with heparin at present Hypocalcemia, improved -Occurred in setting of hyperphosphatemia in setting of severe ANDREA -Continue calcitriol, calcium carbonate and vitamin D supplementation Chronic anticoagulation, s/p aortic mechanical valve -Coumadin held awaiting HD catheter placement, on heparin IV -INR 2.3 on 08/20. Pending result for 08/21 -outpatient INR goal 2.5-3.5, although / [facility] valve goal range usually 2.0- 3.0. Pancytopenia, setting of multiple myeloma Chronic normocytic anemia, baseline Hb 8-9 -No signs of hemolysis on peripheral smear. -S/p Epogen 40,000 units, PRBC x2 units with HD on 08/13. 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 Transfuse Hgb < 7 F/E/N: Renal dialysis diet code: full Dispo: Medical-surgical with telemetry DVT Prophylaxis: Warfarin held. Heparin IV ongoing Admission and Anticipated Discharge Date Admission Date: August 12, 2022 Supervising Physician Co-Signing Physician Notes Resident Physician Supervision Note: I independently interviewed and examined the patient and verified the taylor hist ory and physical, reviewed labs and image studies and agree with resident findings and care plan. Subjective Patient seen at the bedside this morning without any complaints. No overnight events. Review of Systems Review of Systems: See HPI Physical Exam Constitutional: WD/WN, vitals as above Eyes: PERRL, conjunctivae normal, anicteric sclerae Respiratory: normal respiratory effort, lungs clear to auscultation Cardiovascular: RRR, no murmur, no edema Gastrointestinal (Abdomen): normal bowel sounds, soft, nontender, no hepatosplenomegaly Psychiatric: A+Ox3, euthymic affect Results & Data Results & Data Vital Signs (Past 12 Hours) Vital Signs Temp Pulse Pulse Resp BP Pulse Ox Pulse Ox 08/21/22 03:07 36.9 C 76 18 148/67 H 97 08/21/22 00:00 72 08/20/22 21:00 96 08/20/22 22:47 36.4 C L 67 18 156/74 H 97 08/20/22 20:06 36.9 C 80 18 161/73 H 96 O2 Del Method O2 Del Method 08/21/22 03:07 Room Air 08/21/22 00:00 08/20/22 21:00 Room Air 08/20/22 22:47 Room Air 08/20/22 20:06 Room Air Resident Activity Tracking Resident Involvement: Resident Care Provided Care Provided: Adult Hospital Medicine
[2022-08-21] MEDS: HEPARIN SODIUM/DEXTROSE 25,000 UNITS/500 ML BAG IV SCH (07:41)
[2022-08-21] MEDS: AMOXICILLIN/CLAVULANATE 500 MG TAB PO SCH ×2 (08:34→16:30)
[2022-08-21] MEDS: CHOLECALCIFEROL 1,000 UNITS 25 MCG TAB PO SCH (08:35)
[2022-08-21] MEDS: CALCITRIOL 0.25 MCG CAPSULE PO SCH (08:35)
[2022-08-21] MEDS: SEVELAMER HCL 800 MG TABLET PO SCH ×3 (08:35→16:30)
[2022-08-21] MEDS: PANCREAZE (LIPASE 10,500U) CAP PO SCH ×3 (08:36→16:30)
[2022-08-21] MEDS: METOPROLOL TARTRATE 25 MG TAB PO SCH ×2 (08:36→20:20)
--- NOTE | 2022-08-21 08:43 | Nephrology Progress Note ---
Date of Service August 21, 2022 Assessment & Plan (1) ESRD (end stage renal disease): Plan: * Repeated episodes of ANDREA due to dehydration resulting in progressive renal dysfunction and ESKD. Creatinine continues to rise in between HD treatments * Last dialysis was yesterday for 3.5 hrs w/ 500 cc UF. Volume status and electrolyte balance are currently acceptable. No acute indication for HD today * Monitor PRP, UO * Awaiting surgical placement of IJ TCC and removal of temporary femoral HD catheter on Tuesday * Outpatient HD has been set up for [facility] starting at 10:30 am (2) Anemia: Plan: * Epogen 39085 units provided 08/13 and 08/20 * 2 unit PRBC support provided with HD 08/14 (3) Hypocalcemia: Plan: * Continue calcitriol to 0.5 mcg daily (4) Diarrhea: Plan: * Managed w/ Creon and Imodium therapy Admission and Anticipated Discharge Date Admission Date: August 12, 2022 Subjective Mr. Londono was evaluated in his hospital room this morning. He is discouraged about having to start dialysis and his repeated hospitalizations. Mr. Londono currently denies fever, angina, dyspnea or uremic symptoms. He was last dialyzed yesterday via a temporary dialysis catheter for 3.5 hours w/ 500 cc UF. Review of Systems Constitutional: no fever Eyes: no worsening vision Ear, Nose, Mouth, Throat: no problem reported Respiratory: no cough and no dyspnea Cardiovascular: no chest pain Gastrointestinal: + diarrhea/loose stools; no abdominal pain Genitourinary: no dysuria or no urinary hesitancy Integumentary: no problem reported Physical Exam Constitutional: + frail appearing; not in distress Eyes: PERRL, conjunctivae normal, anicteric sclerae ENMT: external ear and nose normal, oropharynx normal Neck: trachea midline, no thyromegaly Respiratory: normal respiratory effort, lungs clear to auscultation Cardiovascular: Rate/Rhythm: + irregularly irregular Heart Sounds: normal S1 (prosthetic S2) Vessels: no JVD Extremities: no edema Gastrointestinal (Abdomen): normal bowel sounds, soft, nontender, no hepatosplenomegaly Musculoskeletal: Extremities: no cyanosis and no clubbing Skin: no rashes, warm and dry normal turgor Neurologic: Speech / Cognition: normal speech and normal cognition Results & Data Vital Signs (Past 12 Hours) Vital Signs Temp Pulse Pulse Resp BP Pulse Ox Pulse Ox 07/01/23 08:08 36.8 C 81 18 145/67 H 94 08/21/22 03:07 36.9 C 76 18 148/67 H 97 08/21/22 00:00 72 08/20/22 21:00 96 08/20/22 22:47 36.4 C L 67 18 156/74 H 97 O2 Del Method O2 Del Method 08/21/22 08:08 Room Air 08/21/22 03:07 Room Air 08/21/22 00:00 08/20/22 21:00 Room Air 08/20/22 22:47 Room Air Laboratory Results Laboratory Tests 08/21/22 08/21/22 05:05 05:05 WBC 7.45 Hgb 8.1 L Hct 24.3 L Plt Count 88 L Sodium 137 Potassium 3.8 Chloride 106 Carbon Dioxide 24 BUN 21 Creatinine 4.17 H D Glucose 96 Calcium 8.2 L Phosphorus 3.6 Magnesium 1.7 PG Care Time/CCT Total # of Minutes Spent Total Time Spent with Patient: Total time spent is greater than 50% in coordination of care (as documented) at patient's floor/unit and/or counseling patient: Coding Level of Care Code 77139 SUB INP/OBS CARE 3/50MIN Diagnoses ESRD (end stage renal disease) N18.6 Anemia D64.9 Hypocalcemia E83.51 Diarrhea R19.7
[2022-08-21 13:30] LABS: INR 2.3 (0.9-1.1); Partial Thromboplastin Ratio 1.7; Prothrombin Time 23.8 Seconds (9.0-12.0)
[2022-08-21 13:33] LABS: Partial Thromboplastin Time 48.1 Seconds (21.0-31.0)
[2022-08-21] MEDS: TAMSULOSIN HCL 0.4 MG CAP PO SCH (20:20)
[2022-08-22 04:36] LABS: Hematocrit (blood only) 24.4 % (42.0-52.0); Hemoglobin 7.9 g/dl (14.0-18.0); Mean Corpuscular Hemoglobin 29.8 pg (25.0-34.0); Mean Corpuscular Hgb Conc 32.4 g/dL (32.0-36.0); Mean Corpuscular Volume 92.1 fL (80.0-100.0); Mean Platelet Volume 11.8 fL (9.4-12.4); Platelet Count 94 K/uL (130-400); RDW Coefficient of Variation 16.1 % (11.5-14.5); RDW Standard Deviation 53.1 fL (36.4-46.3); Red Blood Count 2.65 M/uL (4.70-6.10); White Blood Count 6.65 K/ul (4.8-10.8)
[2022-08-22 04:49] LABS: BUN Creatinine Ratio 5.2 (10-20); Calcium 8.4 mg/dl (8.6-10.3); Creatinine Clr Calc Pharmacy 11.1 ml/min; Est GFR (African American) 10.9 ml/min; Est GFR (Non-African American) 9.4 ml/min; Potassium 3.9 mmol/L (3.5-5.1)
[2022-08-22 05:00] LABS: Basophils # (auto) 0.03 K/uL (0-0.2); Basophils % (auto) 0.5 %; Eosinophils # (auto) 0.32 K/uL (0-0.50); Eosinophils % (auto) 4.8 %; Immature Granulocytes # (auto) 0.12 K/uL (0.01-0.20); Immature Granulocytes % (auto) 1.8 %; Lymphocytes # (auto) 1.13 K/uL (1.2-3.4); Monocytes # (auto) 0.74 K/uL (0.11-0.59); Monocytes % (auto) 11.1 %; Neutrophils # (auto) 4.31 K/uL (1.40-6.50); Neutrophils % (auto) 64.8 %; RBC Morphology Unremarkable
[2022-08-22 05:22] LABS: INR 2.1 (0.9-1.1); Partial Thromboplastin Ratio 2.3; Prothrombin Time 22.4 Seconds (9.0-12.0)
[2022-08-22 05:23] LABS: Partial Thromboplastin Time 66.2 Seconds (21.0-31.0)
--- NOTE | 2022-08-22 07:06 | Hospitalist Progress Note ---
Date of Service August 22, 2022 Assessment & Plan (1) ANDREA (acute kidney injury): Plan: 77 year old with chronic kidney disease with a hx of renal failure, paroxysmal A Fib and mechanical aortic valve on Coumadin, HTN, HLD, secondary hyperparathyroidism, h/o multiple myeloma, asymptomatic cholelithiasis, and hx of pancreatic cysts who presented with fatigue and weakness. ANDREA superimposed on CKD4, possibly ESRD -Preceding diarrhea. S/p emergent hemodialysis for uremia with HAGMA on 08/13 via R femoral HD catheter -Nephrology following -HD permanent catheter placement tentatively on 08/23/22 -INR 2.1, vitamin k 5mgs, recheck INR later today -Continue phosphate and potassium binders -Continue calcitriol, calcium carbonate and vitamin D supplementation Paroxysmal atrial fibrillation -Currently sinus -Continue home metoprolol at half dosing 25mg PO BID -Home warfarin held, anticoagulating with heparin at present -INR management as above s/p aortic mechanical valve -Coumadin held awaiting HD catheter placement, on heparin IV UTI (sepsis resolved) -BCx negative -UCx: pansensitive E Coli + enterococcus (tetracycline indeterminant). Ceftriaxone -> Augmentin as of 08/16 -Augmentin treatment completed Pancytopenia, setting of multiple myeloma Chronic normocytic anemia, baseline Hb 8-9 -No signs of hemolysis on peripheral smear. -S/p Epogen 40,000 units, PRBC x2 units with HD on 08/13. 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 Transfuse Hgb < 7 F/E/N: Renal dialysis diet code: full Dispo: Medical-surgical with telemetry DVT Prophylaxis: Warfarin held. Heparin IV ongoing Admission and Anticipated Discharge Date Admission Date: August 12, 2022 Supervising Physician Co-Signing Physician Notes Resident Physician Supervision Note: I independently interviewed and examined the patient and verified the taylor history and physical, reviewed labs and image studies and agree with resident findings and care plan. Subjective . Patient seen at bedside this morning. No acute events reported overnight. Patient appears comfortable with no new complaints at this time. Review of Systems Review of Systems: See HPI Physical Exam Constitutional: WD/WN, vitals as above Eyes: PERRL, conjunctivae normal, anicteric sclerae Respiratory: normal respiratory effort, lungs clear to auscultation Cardiovascular: RRR, no murmur, no edema Gastrointestinal (Abdomen): normal bowel sounds, soft, nontender, no hepatosplenomegaly Psychiatric: A+Ox3, euthymic affect Results & Data Results & Data Vital Signs (Past 12 Hours) Vital Signs Temp Pulse Pulse Pulse Resp BP Pulse Ox 08/22/22 01:00 80 08/22/22 02:55 37.2 C 72 16 150/70 H 95 08/21/22 22:51 36.9 C 78 16 155/69 H 95 08/21/22 19:28 38.8 C H 101 H 18 134/79 95 08/21/22 19:21 37.0 C 80 18 150/69 H 95 O2 Del Method 08/22/22 01:00 08/22/22 02:55 Room Air 08/21/22 22:51 Room Air 08/21/22 19:28 Room Air 08/21/22 19:21 Room Air
[2022-08-22] MEDS ORDERED: PHYTONADIONE 5 MG TAB PO STA (07:44)
[2022-08-22] MEDS: HEPARIN SODIUM/DEXTROSE 25,000 UNITS/500 ML BAG IV SCH ×2 (07:55→17:05)
[2022-08-22] MEDS: METOPROLOL TARTRATE 25 MG TAB PO SCH ×2 (08:29→20:12)
[2022-08-22] MEDS: PANCREAZE (LIPASE 10,500U) CAP PO SCH ×3 (08:30→17:00)
[2022-08-22] MEDS: SEVELAMER HCL 800 MG TABLET PO SCH ×3 (08:30→17:00)
[2022-08-22] MEDS: AMOXICILLIN/CLAVULANATE 500 MG TAB PO SCH ×2 (08:30→17:00)
[2022-08-22] MEDS: CHOLECALCIFEROL 1,000 UNITS 25 MCG TAB PO SCH (08:31)
[2022-08-22] MEDS: CALCITRIOL 0.25 MCG CAPSULE PO SCH (08:31)
--- NOTE | 2022-08-22 08:34 | Nephrology Progress Note ---
Date of Service August 22, 2022 Assessment & Plan (1) ESRD (end stage renal disease): Plan: * Repeated episodes of ANDREA due to dehydration resulting in progressive renal dysfunction and ESKD. Creatinine continues to rise in between HD treatments * Last dialysis was Tuesday for 3.5 hrs w/ 500 cc UF. Volume status and electrolyte balance remain acceptable. No acute indication for HD today * Monitor PRP, UO * Awaiting surgical placement of IJ TCC and removal of temporary femoral HD catheter on Tuesday * Will provide HD following IJ TCC placement Tuesday * Outpatient HD has been set up for [facility] starting at 10:30 am (2) Anemia: Plan: * Epogen 67382 units provided 08/13 and 08/20 * 2 unit PRBC support provided with HD 08/14 * Hgb is gradually trending down. Will provide CHRISTIANA w/ HD Tuesday (3) Hypocalcemia: Plan: * Continue calcitriol to 0.5 mcg daily (4) Diarrhea: Plan: * Managed w/ Creon and Imodium therapy Admission and Anticipated Discharge Date Admission Date: August 12, 2022 Subjective Mr. Londono was evaluated in his hospital room this morning. He denied fever, angina, dyspnea or uremic symptoms. He voiced no new medical concerns. Review of Systems Constitutional: no fever Eyes: no worsening vision Ear, Nose, Mouth, Throat: no problem reported Respiratory: no cough and no dyspnea Cardiovascular: no chest pain Gastrointestinal: + diarrhea/loose stools; no abdominal pain Genitourinary: no dysuria or no urinary hesitancy Physical Exam Constitutional: + frail appearing; not in distress Eyes: PERRL, conjunctivae normal, anicteric sclerae ENMT: external ear and nose normal, oropharynx normal Neck: trachea midline, no thyromegaly Respiratory: normal respiratory effort, lungs clear to auscultation Cardiovascular: Rate/Rhythm: + irregularly irregular Heart Sounds: normal S1 (prosthetic S2) Vessels: no JVD Extremities: no edema Gastrointestinal (Abdomen): normal bowel sounds, soft, nontender, no he patosplenomegaly Musculoskeletal: Extremities: no cyanosis and no clubbing Skin: no rashes, warm and dry normal turgor Neurologic: Speech / Cognition: normal speech and normal cognition Results & Data Vital Signs (Past 12 Hours) Vital Signs Temp Pulse Pulse Resp BP Pulse Ox O2 Del Method 08/22/22 07:34 36.8 C 81 18 138/61 96 Room Air 08/22/22 01:00 80 08/22/22 02:55 37.2 C 72 16 150/70 H 95 Room Air 08/21/22 22:51 36.9 C 78 16 155/69 H 95 Room Air Laboratory Results Laboratory Tests 08/20/22 08/21/22 08/22/22 06:46 05:05 04:16 WBC 6.65 Hgb 7.9 L Hct 24.4 L Plt Count 94 L INR Sodium Potassium Chloride Carbon Dioxide BUN Creatinine 6.09 H* D 4.17 H D Glucose Calcium 08/22/22 08/22/22 04:16 04:16 WBC Hgb Hct Plt Count INR 2.1 H Sodium 137 Potassium 3.9 Chloride 107 Carbon Dioxide 22 BUN 28 H Creatinine 5.37 H* D Glucose 98 Calcium 8.4 L Laboratory Tests 08/14/22 04:09 Ferritin 1308.4 H PG Care Time/CCT Total # of Minutes Spent Total Time Spent with Patient: Total time spent is greater than 50% in coordination of care (as documented) at patient's floor/unit and/or counseling patient: Coding Level of Care Code 01761 SUB INP/OBS CARE 3/50MIN Diagnoses ESRD (end stage renal disease) N18.6 Anemia D64.9 Hypocalcemia E83.51 Diarrhea R19.7
[2022-08-22] MEDS ORDERED: SODIUM CHLORIDE 0.9% 250 ML IV PRN (09:33)
[2022-08-22 15:28] LABS: INR 1.7 (0.9-1.1); Prothrombin Time 18.2 Seconds (9.0-12.0)
--- NOTE | 2022-08-22 16:49 | Communication Note ---
Date of Service: August 22, 2022 A problem that was not put on the progress note from today is that the patient had a fever yesterday. See plan below: Fever -Patient had temperature of 38.8 C at approximately 7:30 last night. -Remains without rise in white count. Patient has been afebrile since then. -No signs of active infection as far as we can tell. Completed Augmentin therapy for UTI yesterday. -Blood cultures taken today prior to catheter placement tomorrow. -Follow blood cultures and treat accordingly if needed. -Still feel it is safe for patient to have procedure tomorrow
[2022-08-22] MEDS: TAMSULOSIN HCL 0.4 MG CAP PO SCH (20:12)
[2022-08-23] MEDS ORDERED: EPOETIN ALFA 10,000 UNITS/ML VIAL IV ONE (07:00)
[2022-08-23] MEDS ORDERED: SODIUM CHLORIDE 0.9% 1000ML 1,000 ML IV PRN (07:00)
[2022-08-23 07:40] LABS: Hemoglobin 8.1 g/dl (14.0-18.0); Mean Corpuscular Hemoglobin 29.5 pg (25.0-34.0); Mean Corpuscular Hgb Conc 32.4 g/dL (32.0-36.0); Mean Corpuscular Volume 90.9 fL (80.0-100.0); Platelet Count 127 K/uL (130-400); RDW Coefficient of Variation 16.2 % (11.5-14.5); RDW Standard Deviation 52.8 fL (36.4-46.3); Red Blood Count 2.75 M/uL (4.70-6.10); White Blood Count 7.03 K/ul (4.8-10.8)
--- NOTE | 2022-08-23 07:55 | Hospitalist Progress Note ---
Date of Service August 23, 2022 Assessment & Plan (1) ANDREA (acute kidney injury): Plan: 77 year old with chronic kidney disease with a hx of renal failure, paroxysmal A Fib and mechanical aortic valve on Coumadin, HTN, HLD, secondary hyperparathyroidism, h/o multiple myeloma, asymptomatic cholelithiasis, and hx of pancreatic cysts who presented with fatigue and weakness. ANDREA superimposed on CKD4, possibly ESRD -Preceding diarrhea. S/p emergent hemodialysis for uremia with HAGMA on 08/13 via R femoral HD catheter -Nephrology following -HD permanent catheter placement tentatively on 08/26/22 if blood cultures remain negative -Continue phosphate and potassium binders - S/p HD today Fever -Patient had temperature of 38.8 C at 48 hours ago -Remains without rise in white count. Patient has been afebrile since then. -No signs of active infection as far as we can tell. Completed antibiotic therapy for UTI -Repeat blood cultures from 08/22 without growth to date UTI (sepsis resolved) -UCx: pansensitive E Coli + enterococcus (tetracycline indeterminant). Ceftriaxone -> Augmentin as of 08/16 -Completed on total course of antibiotics of 10 days on 08/23 Concern for tick borne illness -Lyme Ab Babesia PCR and tickborne smear negative. Anaplasmosis PCR pending. Empiric doxycycline 08/13 - 08/18 -Clinically improved, afebrile, symptoms resolved Paroxysmal atrial fibrillation -Currently sinus -Continue home metoprolol at half dosing 25mg PO BID -Home warfarin held, anticoagulating with heparin at present Hypocalcemia, improved -Occurred in setting of hyperphosphatemia in setting of severe ANDREA -Continue calcitriol, calcium carbonate and vitamin D supplementation Chronic anticoagulation, s/p aortic mechanical valve -Coumadin held awaiting HD catheter placement, on heparin IV -INR 1.2 on 08/23 -outpatient INR goal 2.5-3.5 Pancytopenia, setting of multiple myeloma Chronic normocytic anemia, baseline Hb 8-9 -No signs of hemolysis on peripheral smear. -S/p Epogen 40,000 units, PRBC x2 units with HD on 08/13. 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 Transfuse Hgb < 7 -most recent Hbg= 8.1 on 08/23 F/E/N: Renal dialysis diet code: full DVT Prophylaxis: Warfarin held. Heparin IV ongoing Admission and Anticipated Discharge Date Admission Date: August 12, 2022 Supervising Physician Co-Signing Physician Notes I personally examined the patient and verified all taylor points of history and exam, discussed case, and agree with decision making with Dr Hernandez feeling ok overall. no new complaints. d/w surgery, input appreciated vitals noted nad heent nc at mmm breathing unlabored no accessory muscles good effort skin no rashes no pallor or icterus ESRD - wants to continue w HD. line placement . setting up outpt HD fever - 1x, 2 days ago - none since. blood cultures negative to date. follow but no clear need to empirically extend abx. follow clinically, follow cultures otherwise as above Subjective Messi was doing well this morning. No complaints. Waiting placement for perm catheter. Review of Systems Review of Systems: As per above Physical Exam Physical Exam: Constitutional: well-appearing, no acute distress HEENT: NCAT, no conjunctival injection CV: regular rhythm, no murmur appreciated, extremities well-perfused, no LE edema Resp: CTABL, no wheezes/rales/rhonchi appreciated, no increased work of breathing MSK: no gross deformities appreciated Skin: warm, dry, no rash appreciated Neuro: alert, oriented, no focal neurologic deficit appreciated Results & Data Results & Data Vital Signs (Past 12 Hours) Vital Signs Temp Pulse Pulse Resp BP Pulse Ox O2 Del Method 08/23/22 04:07 36.8 C 75 18 153/72 H 96 Room Air 08/22/22 23:19 36.6 C 80 20 163/73 H 96 Room Air 08/22/22 22:01 79 08/22/22 20:14 36.7 C 81 20 145/70 H 96 Room Air Resident Activity Tracking Resident Involvement: Resident Care Provided Care Provided: Adult Hospital Medicine
[2022-08-23] MEDS: METOPROLOL TARTRATE 25 MG TAB PO SCH ×2 (07:57→20:27)
[2022-08-23] MEDS: PANCREAZE (LIPASE 10,500U) CAP PO SCH ×3 (07:57→18:11)
[2022-08-23] MEDS: SEVELAMER HCL 800 MG TABLET PO SCH ×3 (07:58→18:11)
[2022-08-23] MEDS: AMOXICILLIN/CLAVULANATE 500 MG TAB PO SCH ×2 (07:58→18:11)
[2022-08-23] MEDS: CHOLECALCIFEROL 1,000 UNITS 25 MCG TAB PO SCH (07:58)
[2022-08-23] MEDS: CALCITRIOL 0.25 MCG CAPSULE PO SCH (07:58)
[2022-08-23 08:03] LABS: BUN Creatinine Ratio 4.9 (10-20); Calcium 8.5 mg/dl (8.6-10.3); Creatinine Clr Calc Pharmacy 9.6 ml/min; Est GFR (Non-African American) 7.8 ml/min; Potassium 4.2 mmol/L (3.5-5.1)
[2022-08-23 08:09] LABS: INR 1.2 (0.9-1.1); Partial Thromboplastin Ratio 1.2; Partial Thromboplastin Time 33.3 Seconds (21.0-31.0)
--- NOTE | 2022-08-23 08:17 | Nephrology Progress Note ---
Date of Service August 23, 2022 Assessment & Plan (1) ESRD (end stage renal disease): Plan: * Repeated episodes of ANDREA due to dehydration resulting in progressive renal dysfunction and ESKD. Creatinine continues to rise in between HD treatments * One low grade fever 08/21/22. Temperature has been normal since that time. No leukocytosis or L shift. Patient does not appear clinically septic. POC discussed w/ general surgery this morning. Will provide 3 hr HD treatment this morning, surgery will remove femoral dialysis catheter and plan IJ TCC later this week after blood cultures are resulted and negative * Monitor PRP, UO * Outpatient HD has been set up for [facility] starting at 10:30 am (2) Anemia: Plan: * Epogen 51373 units provided 08/13 and 08/20 * 2 unit PRBC support provided with HD 08/14 * Hgb 8.1 this morning. Will monitor. Hold blood transfusion at this time (3) Hypocalcemia: Plan: * Continue calcitriol to 0.5 mcg daily (4) Diarrhea: Plan: * Managed w/ Creon and Imodium therapy Admission and Anticipated Discharge Date Admission Date: August 12, 2022 Subjective Mr. Londono was evaluated in his hospital room this morning. He denied fever, angina, dyspnea or uremic symptoms. He voiced no new medical concerns. Review of Systems Constitutional: no fever Eyes: no worsening vision Ear, Nose, Mouth, Throat: no problem reported Respiratory: no cough and no dyspnea Cardiovascular: no chest pain Gastrointestinal: + diarrhea/loose stools; no abdominal pain Genitourinary: no dysuria or no urinary hesitancy Integumentary: no problem reported Physical Exam 2 Constitutional: + frail appearing; not in distress Eyes: PERRL, conjunctivae normal, anicteric sclerae ENMT: external ear and nose normal, oropharynx normal Neck: trachea midline, no thyromegaly Respiratory: normal respiratory effort, lungs clear to auscultation Cardiovascular: Rate/Rhythm: + irregularly irregular Heart Sounds: normal S1 (prosthetic S2) Vessels: no JVD Extremities: no edema Gastrointestinal (Abdomen): normal bowel sounds, soft, nontender, no hepatosplenomegaly Musculoskeletal: Extremities: no cyanosis and no clubbing Skin: no rashes, warm and dry normal turgor Neurologic: Speech / Cognition: normal speech and normal cognition Results & Data Vital Signs (Past 12 Hours) Vital Signs Temp Pulse Pulse Resp BP Pulse Ox O2 Del Method 08/23/22 07:20 36.8 C 77 20 156/68 H 94 Room Air 08/23/22 04:07 36.8 C 75 18 153/72 H 96 Room Air 08/22/22 23:19 36.6 C 80 20 163/73 H 96 Room Air 08/22/22 22:01 79 PG Care Time/CCT Total # of Minutes Spent Total Time Spent with Patient: Total time spent is greater than 50% in coordination of care (as documented) at patient's floor/unit and/or counseling patient: Coding Level of Care Code 43234 SUB INP/OBS CARE 3/50MIN Diagnoses ESRD (end stage renal disease) N18.6 Anemia D64.9 Hypocalcemia E83.51 Diarrhea R19.7
--- NOTE | 2022-08-23 09:49 | Surgery Progress Note ---
Date of Service August 23, 2022 Assessment & Plan (1) ESRD (end stage renal disease): Plan: Unfortunately he spiked a fever over the weekend. Blood cultures were drawn and are pending. He has no leukocytosis and no new fevers however it would be unwise to place a permacath in the face of pending blood cultures. Also the last INR was still elevated at 1.7 we will check this again tomorrow. I would also like the femoral catheter which would be a likely source of his fever to be removed for 24 to 48 hours prior to placing a new catheter. I discussed with Dr. Contreras as well as Dr. Zhang. He will receive 3 hours of hemodialysis through the femoral catheter today and then we will remove it. Assuming the blood cultures are negative and the INR comes to below 1.5 we will tentatively plan placement of right internal jugular permacath on . (2) Fever: Admission and Anticipated Discharge Date Admission Date: August 12, 2022 Subjective Patient seen. Overall feeling okay. Unfortunately he spiked a temperature over the weekend. Physical Exam Physical Exam: Alert. No acute distress No change in his physical exam from prior Results & Data Vital Signs (Past 12 Hours) Vital Signs Temp Pulse Pulse Resp BP Pulse Ox O2 Del Method 08/23/22 07:20 36.8 C 77 20 156/68 H 94 Room Air 08/23/22 04:07 36.8 C 75 18 153/72 H 96 Room Air 08/22/22 23:19 36.6 C 80 20 163/73 H 96 Room Air 08/22/22 22:01 79 PG Care Time/CCT Total # of Minutes Spent Total Time Spent with Patient: Total time spent is greater than 50% in coordination of care (as documented) at patient's floor/unit and/or counseling patient: Coding Level of Care Code 93759 SUB INP/OBS CARE 2/35MIN Diagnoses ESRD (end stage renal disease) N18.6 Fever R50.9
[2022-08-23] MEDS: HEPARIN SODIUM/DEXTROSE 25,000 UNITS/500 ML BAG IV SCH ×2 (13:11→18:11)
--- NOTE | 2022-08-23 18:56 | Billing Data ---
Date of Service August 23, 2022 Coding Level of Care Code 36972 SUB INP/OBS CARE
[2022-08-23] MEDS: TAMSULOSIN HCL 0.4 MG CAP PO SCH (20:28)
[2022-08-23 23:45] LABS: Partial Thromboplastin Ratio 1.3; Partial Thromboplastin Time 35.6 Seconds (21.0-31.0)
[2022-08-23] MEDS ORDERED: HEPARIN SOD (PORCINE) 1000 UNIT/ML IV ONE (23:55)
[2022-08-24 00:44] LABS: Appearance Urine Clear (Clear); Bacteria Urine Automated Negative (Negative); Bilirubin Urine Negative (Negative); Blood Urine Trace (Negative); Color Urine Yellow; Glucose Urine UA 1+ (Negative); Ketones Urine Negative (Negative); Leukocyte Esterase Urine Negative (Negative); Nitrite Urine Negative (Negative); RBC Urine Automated 0-4 /hpf (0-4); Specific Gravity Urine 1.011 (1.000-1.030); Urobilinogen Urine Negative (Negative); pH Urine >= 9.0 (4.5-7.5)
[2022-08-24 01:22] LABS: Protein Urine 2+ (Negative)
[2022-08-24 06:39] LABS: Hematocrit (blood only) 26.7 % (42.0-52.0); Hemoglobin 8.8 g/dl (14.0-18.0); Mean Corpuscular Volume 91.1 fL (80.0-100.0); Mean Platelet Volume 11.3 fL (9.4-12.4); Platelet Count 129 K/uL (130-400); RDW Coefficient of Variation 16.2 % (11.5-14.5); RDW Standard Deviation 51.7 fL (36.4-46.3); Red Blood Count 2.93 M/uL (4.70-6.10); White Blood Count 6.51 K/ul (4.8-10.8)
--- NOTE | 2022-08-24 06:58 | Hospitalist Progress Note ---
Date of Service August 24, 2022 Assessment & Plan (1) ANDREA (acute kidney injury): Plan: 77 year old with chronic kidney disease with a hx of renal failure, paroxysmal A Fib and mechanical aortic valve on Coumadin, HTN, HLD, secondary hyperparathyroidism, h/o multiple myeloma, asymptomatic cholelithiasis, and hx of pancreatic cysts who presented with fatigue and weakness. ANDREA superimposed on CKD4, possibly ESRD -Preceding diarrhea. S/p emergent hemodialysis for uremia with HAGMA on 08/13 via R femoral HD catheter -Nephrology following -HD permanent catheter placement tentatively on 08/26/22 if blood cultures remain negative -Continue phosphate and potassium binders - S/p HD 08/23 Fever -Patient had temperature of 38.8 C at 48 hours ago -Remains without rise in white count. Patient has been afebrile since then. -No signs of active infection as far as we can tell. Completed antibiotic therapy for UTI -Repeat blood cultures from 08/22 without growth to date UTI (sepsis resolved) -UCx: pansensitive E Coli + enterococcus (tetracycline indeterminant). Ceftriaxone -> Augmentin as of 08/16 -Completed on total course of antibiotics of 10 days on 08/23 Concern for tick borne illness -Lyme Ab Babesia PCR and tickborne smear negative. Anaplasmosis PCR pending. Empiric doxycycline 08/13 - 08/18 -Clinically improved, afebrile, symptoms resolved Paroxysmal atrial fibrillation -Currently sinus -Continue home metoprolol at half dosing 25mg PO BID -Home warfarin held, anticoagulating with heparin at present Hypocalcemia, improved -Occurred in setting of hyperphosphatemia in setting of severe ANDREA -Continue calcitriol, calcium carbonate and vitamin D supplementation Chronic anticoagulation, s/p aortic mechanical valve -Coumadin held awaiting HD catheter placement, on heparin IV -INR 1.1 on 08/24 -outpatient INR goal 2.5-3.5 Pancytopenia, setting of multiple myeloma Chronic normocytic anemia, baseline Hb 8-9 -No signs of hemolysis on peripheral smear. -S/p Epogen 40,000 units, PRBC x2 units with HD on 08/13. 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 Transfuse Hgb < 7 -most recent Hbg= 8.1 on 08/23 F/E/N: Renal dialysis diet code: full DVT Prophylaxis: Warfarin held. Heparin IV ongoing Admission and Anticipated Discharge Date Admission Date: August 12, 2022 Supervising Physician Co-Signing Physician Notes I personally examined the patient and verified all taylor points of history and exam, discussed case, and agree with decision making with Dr Hernandez Sleeping comfortably, no issues identified by resident physician, seen by nephrology as wellno new issues. Has not had fevers for about 3 days now. vitals noted Sleeping comfortably and appears nad heent nc at mmm breathing unlabored no accessory muscles good effort skin no rashes no pallor or icterus ESRD - wants to continue w HD. line placement . case management/nephrologysetting up outpt HD fever - 1x, August 21 - none since. blood cultures negative to date. follow but no clear need to empirically extend abx (ended at the end of the day yesterday). follow clinically, follow cultures (no growth to date) otherwise as above Subjective Seen at bedside this morning, no complaints. Good PO intake. Slept well. Waiting for perm catheter placement on . Review of Systems Review of Systems: As per above Physical Exam Physical Exam: Constitutional: well-appearing, no acute distress HEENT: NCAT, no conjunctival injection CV: extremities well-perfused, no LE edema Resp: no increased work of breathing MSK: no gross deformities appreciated Skin: warm, dry, no rash appreciated Neuro: alert, oriented, no focal neurologic deficit appreciated Results & Data Results & Data Vital Signs (Past 12 Hours) Vital Signs Temp Pulse Pulse Resp BP BP Pulse Ox 08/24/22 02:25 36.8 C 67 16 143/67 H 98 08/24/22 00:43 84 08/23/22 22:12 36.9 C 71 16 155/53 H 98 08/23/22 19:45 36.7 C 87 16 135/64 97 O2 Del Method 08/24/22 02:25 Room Air 08/24/22 00:43 08/23/22 22:12 Room Air 08/23/22 19:45 Room Air Resident Activity Tracking Resident Involvement: Resident Care Provided Care Provided: Adult Hospital Medicine
[2022-08-24 07:08] LABS: BUN Creatinine Ratio 4.5 (10-20); Calcium 8.6 mg/dl (8.6-10.3); Creatinine Clr Calc Pharmacy 12.4 ml/min; Est GFR (Non-African American) 11.2 ml/min; Potassium 4.2 mmol/L (3.5-5.1)
[2022-08-24 08:08] LABS: INR 1.1 (0.9-1.1); Partial Thromboplastin Ratio 1.6
[2022-08-24 08:09] LABS: Partial Thromboplastin Time 44.4 Seconds (21.0-31.0)
[2022-08-24] MEDS: HEPARIN SODIUM/DEXTROSE 25,000 UNITS/500 ML BAG IV SCH ×2 (08:44→15:49)
--- NOTE | 2022-08-24 08:46 | Nephrology Progress Note ---
Date of Service August 24, 2022 Assessment & Plan (1) ESRD (end stage renal disease): Plan: * Repeated episodes of ANDREA due to dehydration resulting in progressive renal dysfunction and ESKD. Creatinine continues to rise in between HD treatments * Afebrile since 08/21/22 @ 1928 hrs. Normal WBC#. Blood Cx - negative. INR 1.1 this am. R femoral temporary dialysis catheter was removed 08/23/22. Await IJ TCC placement * Monitor PRP, UO * Outpatient HD has been set up for [facility] starting at 10:30 am (2) Anemia: Plan: * Epogen 71839 units provided 08/13 and 08/20 * 2 unit PRBC support provided with HD 08/14 (3) Hypocalcemia: Plan: * Continue calcitriol to 0.5 mcg daily (4) Diarrhea: Plan: * Managed w/ Creon and Imodium therapy Admission and Anticipated Discharge Date Admission Date: August 12, 2022 Subjective Mr. Londono was evaluated in his hospital room this morning. He denied fever, angina, dyspnea or uremic symptoms. He voiced no new medical concerns. Review of Systems Constitutional: no fever Eyes: no worsening vision Ear, Nose, Mouth, Throat: no problem reported Respiratory: no cough and no dyspnea Cardiovascular: no chest pain Gastrointestinal: + diarrhea/loose stools; no abdominal pain Genitourinary: no dysuria or no urinary hesitancy Integumentary: no problem reported Physical Exam Constitutional: + frail appearing; not in distress Eyes: PERRL, conjunctivae normal, anicteric sclerae ENMT: external ear and nose normal, oropharynx normal Neck: trachea midline, no thyromegaly Respiratory: normal respiratory effort, lungs clear to auscultation Cardiovascular: Rate/Rhythm: + irregularly irregular Heart Sounds: normal S1 (prosthetic S2) Vessels: no JVD Extremities: no edema Gastrointestinal (Abdomen): normal bowel sounds, soft, nontender, no hepatosplenomegaly Musculoskeletal: Extremities: no cyanosis and no clubbing Skin: no rashes, warm and dry normal turgor Neurologic: Speech / Cognition: normal speech and normal cognition Results & Data Vital Signs (Past 12 Hours) Vital Signs Temp Pulse Pulse Resp BP Pulse Ox O2 Del Method 08/24/22 07:48 36.7 C 95 H 16 143/66 H 97 Room Air 08/24/22 02:25 36.8 C 67 16 143/67 H 98 Room Air 08/24/22 00:43 84 08/23/22 22:12 36.9 C 71 16 155/53 H 98 Room Air Laboratory Results Laboratory Tests 08/23/22 08/23/22 08/24/22 07:12 07:12 06:09 WBC 7.03 Hgb 8.1 L Hct 25.0 L Plt Count 127 L INR 1.1 Sodium 138 Potassium 4.2 Chloride 107 Carbon Dioxide 22 BUN 31 H Creatinine 6.29 H* D Est GFR (Non-Af Amer) Glucose 92 Calcium 08/24/22 08/24/22 06:09 06:09 WBC 6.51 Hgb 8.8 L Hct 26.7 L Plt Count 129 L INR Sodium 138 Potassium 4.2 Chloride 108 H Carbon Dioxide 22 BUN 21 Creatinine 4.65 H* D Est GFR (Non-Af Amer) 11.2 Glucose 91 Calcium 8.6 Laboratory Tests 08/24/22 06:09 INR 1.1 Diagnostic Findings 08/23/22 Blood Cx - negative x3 PG Care Time/CCT Total # of Minutes Spent Total Time Spent with Patient: Total time spent is greater than 50% in coordination of care (as documented) at patient's floor/unit and/or counseling patient: Coding Level of Care Code 42951 SUB INP/OBS CARE 3/50MIN Diagnoses ESRD (end stage renal disease) N18.6 Anemia D64.9 Hypocalcemia E83.51 Diarrhea R19.7
[2022-08-24] MEDS: PANCREAZE (LIPASE 10,500U) CAP PO SCH ×3 (09:55→17:09)
[2022-08-24] MEDS: SEVELAMER HCL 800 MG TABLET PO SCH ×3 (09:56→17:09)
[2022-08-24] MEDS: METOPROLOL TARTRATE 25 MG TAB PO SCH ×2 (09:56→21:03)
[2022-08-24] MEDS: CALCITRIOL 0.25 MCG CAPSULE PO SCH (09:57)
[2022-08-24] MEDS: CHOLECALCIFEROL 1,000 UNITS 25 MCG TAB PO SCH (09:57)
--- NOTE | 2022-08-24 13:04 | Billing Data ---
Date of Service August 24, 2022 Coding Level of Care Code 87963 SUB INP/OBS CARE
[2022-08-24] MEDS: TAMSULOSIN HCL 0.4 MG CAP PO SCH (21:03)
[2022-08-25 06:52] LABS: Hematocrit (blood only) 27.3 % (42.0-52.0); Hemoglobin 8.8 g/dl (14.0-18.0); Mean Corpuscular Hemoglobin 30.1 pg (25.0-34.0); Mean Corpuscular Hgb Conc 32.2 g/dL (32.0-36.0); Mean Corpuscular Volume 93.5 fL (80.0-100.0); Mean Platelet Volume 11.3 fL (9.4-12.4); Platelet Count 141 K/uL (130-400); RDW Coefficient of Variation 16.4 % (11.5-14.5); RDW Standard Deviation 54.7 fL (36.4-46.3); Red Blood Count 2.92 M/uL (4.70-6.10)
[2022-08-25 07:18] LABS: BUN Creatinine Ratio 4.4 (10-20); Calcium 8.7 mg/dl (8.6-10.3); Creatinine Clr Calc Pharmacy 9.9 ml/min; Est GFR (African American) 9.8 ml/min; Est GFR (Non-African American) 8.5 ml/min; Potassium 4.2 mmol/L (3.5-5.1)
[2022-08-25 07:23] LABS: Partial Thromboplastin Ratio 1.4
--- NOTE | 2022-08-25 07:24 | Hospitalist Progress Note ---
Date of Service August 25, 2022 Assessment & Plan (1) ANDREA (acute kidney injury): Plan: 77 year old with chronic kidney disease with a hx of renal failure, paroxysmal A Fib and mechanical aortic valve on Coumadin, HTN, HLD, secondary hyperparathyroidism, h/o multiple myeloma, asymptomatic cholelithiasis, and hx of pancreatic cysts who presented with fatigue and weakness. ANDREA superimposed on CKD4, possibly ESRD -Preceding diarrhea. S/p emergent hemodialysis for uremia with HAGMA on 08/13 via R femoral HD catheter -Nephrology following -HD permanent catheter placement 08/26/22 8:15, plan to stop heparin at midnight prior to procedure -Continue phosphate and potassium binders - S/p HD 08/23 Fever -Patient had temperature of 38.8 C at 48 hours ago -Remains without rise in white count. Patient has been afebrile since then. -No signs of active infection as far as we can tell. Completed antibiotic therapy for UTI -Repeat blood cultures from 08/22 without growth to date UTI (sepsis resolved) -UCx: pansensitive E Coli + enterococcus (tetracycline indeterminant). Ceftriaxone -> Augmentin as of 08/16 -Completed on total course of antibiotics of 10 days on 08/23 Concern for tick borne illness -Lyme Ab Babesia PCR and tickborne smear negative. Anaplasmosis PCR pending. Empiric doxycycline 08/13 - 08/18 -Clinically improved, afebrile, symptoms resolved Paroxysmal atrial fibrillation -Currently sinus -Continue home metoprolol at half dosing 25mg PO BID -Home warfarin held, anticoagulating with heparin at present - Plan to resume Warfarin with heparin bridge post surgery Hypocalcemia, improved -Occurred in setting of hyperphosphatemia in setting of severe ANDREA -Continue calcitriol, calcium carbonate and vitamin D supplementation Chronic anticoagulation, s/p aortic mechanical valve -Coumadin held awaiting HD catheter placement, on heparin IV -INR 1.1 on 08/24 -outpatient INR goal 2.5-3.5 Pancytopenia, setting of multiple myeloma Chronic normocytic anemia, baseline Hb 8-9 -No signs of hemolysis on peripheral smear. -S/p Epogen 40,000 units, PRBC x2 units with HD on 08/13. 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 Transfuse Hgb < 7 -most recent Hbg= 8.1 on 08/23 F/E/N: Renal dialysis diet code: full DVT Prophylaxis: Warfarin held. Heparin IV ongoing Admission and Anticipated Discharge Date Admission Date: August 12, 2022 Supervising Physician Co-Signing Physician Notes I personally examined the patient and verified all taylor points of history and exam, discussed case, and agree with decision making with Dr Hernandez working with [place] fairly well. No acute complaints today. For line placement tomorrow. Vitals noted, in general he is awake and alert pleasant seeing him standing and upright yield him to be more thin and frail than I had realized recentlybut otherwise in no distress. HEENT normocephalic atraumatic mucous membranes moist. Breathing unlabored no accessory muscle use good effort. Skin shows no rashes no pallor or icterus. ESRD - wants to continue w HD. line placement Tomorrow. case management/nephrology setting up outpt HD. Heparin drip on hold after midnight, will want to resume as quickly after surgery as possible, and then resume Coumadin tomorrow as long as no bleeding so that we can get him therapeutic and off of the heparin drip fever - 1x, August 21 - none since. blood cultures negative to date. follow but no clear need to empirically extend abx (ended at the end of the day yesterday). follow clinically, follow cultures (no growth to date) otherwise as above Subjective Messi is doing well today. Up and walking hallways. Waiting for perm catheter placement Review of Systems Review of Systems: As per above Physical Exam Physical Exam: Constitutional: well-appearing, no acute distress HEENT: NCAT, no conjunctival injection CV: extremities well-perfused, no LE edema Resp: no increased work of breathing MSK: no gross deformities appreciated Skin: warm, dry, no rash appreciated Neuro: alert, oriented, no focal neurologic deficit appreciated Results & Data Results & Data Vital Signs (Past 12 Hours) Vital Signs Temp Pulse Pulse Resp BP Pulse Ox O2 Del Method 08/25/22 03:21 36.5 C 69 18 134/51 L 99 Room Air 08/24/22 22:00 76 08/24/22 22:00 Room Air 08/24/22 23:13 36.6 C 68 18 156/66 H 99 Room Air 08/24/22 19:42 36.5 C 76 18 143/69 H 98 Room Air Resident Activity Tracking Resident Involvement: Resident Care Provided Care Provided: Adult Hospital Medicine
[2022-08-25 07:30] LABS: Partial Thromboplastin Time 40.2 Seconds (21.0-31.0)
--- NOTE | 2022-08-25 08:31 | Nephrology Progress Note ---
Date of Service August 25, 2022 Assessment & Plan (1) ESRD (end stage renal disease): Plan: * Repeated episodes of ANDREA due to dehydration resulting in progressive renal dysfunction and ESKD. Creatinine continues to rise in between HD treatments * Afebrile since 08/21/22 @ 1928 hrs. WBC# remains WNL. Blood Cx x3 - negative. INR 1.1 08/24/22. R femoral temporary dialysis catheter was removed 08/23/22. Anticipate IJ TCC tomorrow * Will provide HD following TCC insetion 08/26/22 * Monitor PRP, UO * Outpatient HD has been set up for [facility] starting at 10:30 am (2) Anemia: Plan: * Ferritin > 1200 * Will provide CHRISTIANA w/ HD tomorrow (3) Hypocalcemia: Plan: * Continue calcitriol to 0.5 mcg daily (4) Diarrhea: Plan: * Managed w/ Creon and Imodium therapy Admission and Anticipated Discharge Date Admission Date: August 12, 2022 Subjective Mr. Londono was evaluated in his hospital room this morning. He denied fever, angina, dyspnea or uremic symptoms. He voiced no new medical concerns. Review of Systems Constitutional: no fever Eyes: no worsening vision Ear, Nose, Mouth, Throat: no problem reported Respiratory: no cough and no dyspnea Cardiovascular: no chest pain Gastrointestinal: + diarrhea/loose stools; no abdominal pain Genitourinary: no dysuria or no urinary hesitancy Integumentary: no problem reported Physical Exam Constitutional: + frail appearing; not in distress Eyes: PERRL, conjunctivae normal, anicteric sclerae ENMT: external ear and nose normal, oropharynx normal Neck: trachea midline, no thyromegaly Respiratory: normal respiratory effort, lungs clear to auscultation Cardiovascular: Rate/Rhythm: + irregularly irregular Heart Sounds: normal S1 (prosthetic S2) Vessels: no JVD Extremities: no edema Gastrointestinal (Abdomen): normal bowel sounds, soft, nontender, no hepatosplenomegaly Musculoskeletal: Extremities: no cyanosis and no clubbing Skin: no rashes, warm and dry normal turgor Neurologic: Speech / Cognition: normal speech and normal cognition Results & Data Vital Signs (Past 12 Hours) Vital Signs Temp Pulse Pulse Resp BP Pulse Ox O2 Del Method 08/25/22 08:16 36.8 C 69 18 127/65 95 Room Air 08/25/22 07:31 68 08/25/22 03:21 36.5 C 69 18 134/51 L 99 Room Air 08/24/22 22:00 76 08/24/22 22:00 Room Air 08/24/22 23:13 36.6 C 68 18 156/66 H 99 Room Air Laboratory Results Laboratory Tests 08/25/22 08/25/22 06:21 06:21 WBC 6.40 Hgb 8.8 L Hct 27.3 L Plt Count 141 Sodium 137 Potassium 4.2 Chloride 108 H Carbon Dioxide 21 BUN 26 H Creatinine 5.86 H* D Glucose 90 PG Care Time/CCT Total # of Minutes Spent Total Time Spent with Patient: Total time spent is greater than 50% in coordination of care (as documented) at patient's floor/unit and/or counseling patient: Coding Level of Care Code 10039 SUB INP/OBS CARE 3/50MIN Diagnoses ESRD (end stage renal disease) N18.6 Anemia D64.9 Hypocalcemia E83.51 Diarrhea R19.7
[2022-08-25] MEDS: METOPROLOL TARTRATE 25 MG TAB PO SCH ×2 (09:05→20:30)
[2022-08-25] MEDS: PANCREAZE (LIPASE 10,500U) CAP PO SCH ×3 (09:05→15:49)
[2022-08-25] MEDS: CHOLECALCIFEROL 1,000 UNITS 25 MCG TAB PO SCH (09:06)
[2022-08-25] MEDS: CALCITRIOL 0.25 MCG CAPSULE PO SCH (09:06)
[2022-08-25] MEDS: SEVELAMER HCL 800 MG TABLET PO SCH ×3 (09:06→15:49)
--- NOTE | 2022-08-25 10:39 | Surgery Progress Note ---
Date of Service August 25, 2022 Assessment & Plan (1) ESRD (end stage renal disease): Plan: Patient resting in bed, offers no complaints. Patient informed of procedure time tomorrow with Dr. Delgado Remains afebrile since 08/21/22 Blood cultures from 08/22/22 negative for growth Right femoral HD catheter was removed on 08/23/22 gauze and Tegaderm dressing over site: clean and dry no drainage Will hold Heparin at midnight for surgical procedure on 08/26/[address] Delgado. Hospitalist aware. Patient is followed by Nephrology Admission and Anticipated Discharge Date Admission Date: August 12, 2022 Subjective Patient is resting in bed. Denies pain, fevers, chills, SOB, chest pain. Offers no complaints at present time. Review of Systems Constitutional: no fever, no chills and no sweats Respiratory: no dyspnea Cardiovascular: no chest pain Gastrointestinal: no abdominal pain Genitourinary: + problem reported (Chandler catheter in place) Physical Exam Physical Exam: alert, oriented Constitutional: cooperative and comfortable; no acute distress Respiratory: normal respiratory effort; no labored breathing and does not use accessory muscles Cardiovascular: Rate/Rhythm: regular rate Chest (Breasts): Chest: + vascular access device or port Psychiatric: Orientation: alert and oriented x 3 Results & Data Vital Signs (Past 12 Hours) Vital Signs Temp Pulse Pulse Resp BP Pulse Ox O2 Del Method 08/25/22 08:16 98.2 F 69 18 127/65 95 Room Air 08/25/22 07:31 68 08/25/22 03:21 97.7 F 69 18 134/51 L 99 Room Air 08/24/22 23:13 97.9 F 68 18 156/66 H 99 Room Air PG Care Time/CCT Total # of Minutes Spent Total Time Spent with Patient: Total time spent is greater than 50% in coordination of care (as documented) at patient's floor/unit and/or counseling patient: Coding Level of Care Code 03202 SUB INP/OBS CARE 1/25MIN Diagnoses ESRD (end stage renal disease) N18.6
[2022-08-25 16:02] LABS: Partial Thromboplastin Ratio 1.5
[2022-08-25 16:07] LABS: Partial Thromboplastin Time 41.5 Seconds (21.0-31.0)
--- NOTE | 2022-08-25 18:52 | Billing Data ---
Date of Service August 25, 2022 Coding Level of Care Code 50262 SUB INP/OBS CARE
[2022-08-25] MEDS: TAMSULOSIN HCL 0.4 MG CAP PO SCH (20:30)
[2022-08-25] MEDS: HEPARIN SODIUM/DEXTROSE 25,000 UNITS/500 ML BAG IV SCH ×2 (20:30)
[2022-08-26] MEDS: HEPARIN SODIUM/DEXTROSE 25,000 UNITS/500 ML BAG IV SCH (00:06)
[2022-08-26] MEDS ORDERED: SODIUM CHLORIDE 0.9% 1000ML 1,000 ML IV PRN (07:00)
[2022-08-26] MEDS ORDERED: EPOETIN ALFA 10,000 UNITS/ML VIAL IV ONE (07:00)
[2022-08-26] MEDS ORDERED: KETAMINE 50 MG/5 ML SYRINGE ONE (07:15)
[2022-08-26] MEDS ORDERED: MIDAZOLAM HCL 1 MG/ML 2ML VIAL ONE (07:15)
[2022-08-26] MEDS ORDERED: fentaNYL citrate PF 100 MCG/2 ML VIAL ONE (07:15)
[2022-08-26] MEDS ORDERED: DEXAMETHASONE SOD INJ 4 MG/ML VIAL ONE (07:16)
[2022-08-26] MEDS ORDERED: ONDANSETRON INJ 2 MG/ML 2 ML VIAL ONE (07:16)
[2022-08-26] MEDS ORDERED: PROPOFOL IV EMULSION 10 MG/ML 20 ML VIAL IV ONE (07:17)
[2022-08-26] MEDS ORDERED: ePHEDrine sulfate 50 MG/ML AMP ONE (07:21)
[2022-08-26] MEDS ORDERED: PHENYLEPHRINE HCL 10 MG/ML VIAL ONE (07:21)
[2022-08-26] MEDS ORDERED: LIDOCAINE 2% 2 ML VIAL/AMP(20MG/ML) INFIL ONE (07:21)
[2022-08-26] MEDS ORDERED: ONDANSETRON INJ 2 MG/ML 2 ML VIAL IV PRN (07:42)
[2022-08-26] MEDS ORDERED: fentaNYL citrate PF 100 MCG/2 ML VIAL IV PRN (07:42)
[2022-08-26] MEDS ORDERED: ePHEDrine sulfate 50 MG/ML AMP IV PRN (07:42)
[2022-08-26] MEDS ORDERED: ATROPINE SULFATE 0.1 MG/ML 10ML SYR IV PRN (07:42)
--- NOTE | 2022-08-26 07:42 | Anesthesiology Consultation ---
Date of Service August 26, 2022 Assessment & Plan ASA ASA3 Proposed Anesthesia Anesthesia Type: MAC Risk / Benefits Reviewed With: PT / POA / Parent / Guardian, Accepts Plan and Informed Consent Obtained History Surgery Operation Date: 08/26/22 08:15 Proposed Procedures p Perm Catheter Placement - Ben Delgado, DO Height/Weight Height: 5 ft 9 in Weight: 67.3 kg Allergies Allergy/AdvReac Type Severity Reaction Status Date / Time ASHLEY Inhibitors AdvReac Intermediate COUGH Verified 08/12/22 16:47 acetic acid AdvReac Intermediate Swelling Verified 08/12/22 16:47 of Lip/Tongue/Throat Medications Home Medications Medication Instructions Recorded Confirmed Last Taken simvastatin 20 mg tablet 20 mg PO DAILY #90 tabs 08/11/21 08/12/22 08/12/22 cholecalciferol (vitamin D3) 25 2,000 unit PO QAM #30 caps 04/08/22 08/12/22 08/12/22 mcg (1,000 unit) capsule sodium bicarbonate 650 mg tablet 1,300 mg PO BID #60 tabs 04/08/22 08/12/22 08/12/22 08:00 metoprolol tartrate 50 mg tablet 50 mg PO BID #60 tabs 04/19/22 08/12/22 08/12/22 08:00 [id number]-[id number] 1 cap PO TIDM #90 caps 05/14/22 08/12/22 08/12/22 08:00 36,000-114,000-180,000 unit capsule,delay rel (Creon) loperamide 2 mg capsule 2 mg PO Q3H PRN loose stool #30 07/01/22 08/12/22 Unknown caps calcitriol 0.25 mcg capsule 0.25 mcg PO DAILY #30 caps 07/07/22 08/12/22 08/12/22 tamsulosin 0.4 mg capsule 0.4 mg PO HS #30 caps 07/07/22 08/12/22 08/11/22 potassium chloride 20 mEq oral 20 meq PO DAILY #30 ea 07/28/22 08/12/22 08/12/22 packet warfarin 5 mg tablet 5 mg PO .COMPLEX #30 tabs 08/02/22 08/12/22 08/12/22 furosemide 80 mg tablet 80 mg PO BID 08/12/22 08/12/22 08/12/22 08:00 Active Medications Generic Name Dose Route Start Last Admin Trade Name Arcadio PRN Reason Stop Dose Admin Acetaminophen 650 mg 08/12/22 20:25 08/16/22 20:03 Acetaminophen 325 Mg Tab PO 09/11/22 20:24 650 mg Q4H PRN Administration Pain or Fever Amoxicillin/Clavulanate Potassium 1 tab 08/17/22 08:00 08/23/22 18:11 Amoxicillin/Clavulanate 500 Mg Tab PO 08/27/22 07:59 1 tab BIDM SYLVIA Administration Lipase/Protease/Amylase 1 cap 08/13/22 08:00 08/25/22 15:49 Pancreaze (Lipase 10,500u) Cap PO 09/12/22 07:59 1 cap TIDM SYLVIA Administration Calcitriol 0.5 mcg 08/14/22 09:00 08/25/22 09:06 Calcitriol 0.25 Mcg Capsule PO 09/13/22 08:59 0.5 mcg DAILY SYLVIA Administration Heparin Sodium/Dextrose 25,000 units in 500 mls @ 19 mls/hr 08/16/22 11:30 08/25/22 20:30 Heparin Sodium/Dextrose IV 09/15/22 11:29 950 units/hr .Q24H SYLVIA 19 mls/hr Administration Protocol 950 UNITS/HR Metoprolol Tartrate 25 mg 08/18/22 21:00 08/25/22 20:30 Metoprolol Tartrate 25 Mg Tab PO 09/17/22 20:59 25 mg BID SYLVIA Administration Ondansetron HCl 4 mg 08/13/22 20:51 08/14/22 16:10 Ondansetron Inj 2 Mg/Ml 2 Ml Vial IV 09/12/22 20:50 4 mg Q6H PRN Administration Nausea And Vomiting Sevelamer HCl 800 mg 08/13/22 17:00 08/25/22 15:49 Sevelamer Hcl 800 Mg Tablet PO 09/12/22 16:59 800 mg TIDM SYLVIA Administration Tamsulosin HCl 0.4 mg 08/12/22 21:00 08/25/22 20:30 Tamsulosin Hcl 0.4 Mg Cap PO 09/11/22 20:59 0.4 mg HS SYLVIA Administration Vitamin D 2,000 units 08/13/22 09:00 08/25/22 09:06 Cholecalciferol 1,000 Units 25 Mcg Tab PO 09/12/22 08:59 2,000 units QAM SYLVIA Administration Warfarin Sodium 5 mg 08/16/22 16:00 08/16/22 17:26 Warfarin Sod 5 Mg Tab PO 09/15/22 15:59 5 mg [id number] SYLVIA Administration Warfarin Sodium 2.5 mg 08/13/22 16:00 08/17/22 16:34 Warfarin Sod 2.5 Mg Tab PO 09/12/22 15:59 2.5 mg [id number] SYLVIA Administration Zolpidem Tartrate 5 mg 08/15/22 19:14 08/15/22 23:24 Zolpidem Tartrate 5 Mg Tab PO 09/14/22 19:13 5 mg HS PRN Administration Sleep NPO Date Last Intake of Fluids: 08/25/22 Time Last Intake of Fluids: 22:00 Date Last Intake of Solids: 08/25/22 Time Last Intake of Solids: 22:00 Past Medical History Medical History (Updated 08/23/22 @ 09:47 by Ben Delgado DO) Anemia Atrial fibrillation Complicated urinary tract infection Diarrhea Dyslipidemia Elevated prostate specific antigen (PSA) Hypertension Hypokalemia Metabolic acidosis Multiple myeloma Supratherapeutic INR Exercise / Class Metabolic Activity II 4-5 Yardwork/Stairs/Walk up hill Past Family History Family History Mother Alzheimer disease Sister Breast cancer Father Myocardial infarction Denies family history of Ovarian cancer Prostate cancer Colorectal cancer Past Surgical History Surgical History H/O stem cell transplant S/P AVR (aortic valve replacement) Past Anesthesia History No Hx of Anesthesia Complications and No Family Hx of Anesthesia Complications History of PONV No Hx of PONV and No Hx of Motion Sickness Social History Smoking Status: Never smoker Do You Dip or Chew Tobacco: No Hx Alcohol Use: No Hx Substance Use: No substance use type: does not use Review of Systems denies fever/cough/ colds/ chest pain/ SOB/ SELENA denies SELENA Physical Exam Vital Signs Last Vital Signs Temp 36.7 C 08/26/22 07:19 Pulse 75 08/26/22 07:19 Resp 18 08/26/22 07:19 BP 155/69 H 08/26/22 07:19 Pulse Ox 97 08/26/22 07:19 O2 Del Method Room Air 08/26/22 07:19 O2 Flow Rate 2 08/14/22 23:30 ENMT Mouth: no TMJ abnormality and no dentition abnormality Thyromental Distance: > or= 3.5 Finger Breadths Mallampati Class: II Neck + limited neck extension and + facial hair Respiratory normal respiratory effort; no respiratory distress Auscultation: lungs clear to auscultation bilaterally Cardiovascular Rate/Rhythm: regular rate and regular rhythm Neurologic moves all extremities Psychiatric Orientation: alert and oriented x 3 Testing Laboratory Results PT 12.0 Seconds (9.0-12.0) 08/24/22 06:09 INR 1.1 (0.9-1.1) 08/24/22 06:09 APTT 41.5 Seconds (21.0-31.0) H* 08/25/22 14:56 Urine Color Yellow 08/24/22 00:20 Urine Appearance Clear (Clear) 08/24/22 00:20 Urine pH >= 9.0 (4.5-7.5) H 08/24/22 00:20 Ur Specific [place] 1.011 (1.000-1.030) 08/24/22 00:20 Urine Protein 2+ (Negative) H 08/24/22 00:20 Urine Glucose (UA) 1+ (Negative) H 08/24/22 00:20 Urine Ketones Negative (Negative) 08/24/22 00:20 Urine Nitrite Negative (Negative) 08/24/22 00:20 Ur Leukocyte Esterase Negative (Negative) 08/24/22 00:20 Urine WBC (Auto) 1-5 /hpf (0-5) 08/24/22 00:20 Urine RBC (Auto) 0-4 /hpf (0-4) 08/24/22 00:20 U Hyaline Cast (Auto) 1-5 /lpf (0-5) 08/24/22 00:20 U Epithel Cells (Auto) 5-10 /lpf (0-5) H 08/24/22 00:20 Urine Bacteria (Auto) Negative (Negative) 08/24/22 00:20 Blood Type O Positive 08/22/22 04:16 Antibody Screen NEGATIVE 08/22/22 04:16 08/22/22 17:04 Aerobic Blood Culture - Preliminary Blood No growth in Aerobic bottle after 48 hours. Anaerobic Blood Culture - Preliminary No growth in Anaerobic bottle after 48 hours. 08/22/22 16:07 Aerobic Blood Culture - Preliminary Blood No growth in Aerobic bottle after 48 hours. Anaerobic Blood Culture - Preliminary No growth in Anaerobic bottle after 48 hours. 08/22/22 16:05 Aerobic Blood Culture - Preliminary Blood No growth in Aerobic bottle after 48 hours. Anaerobic Blood Culture - Preliminary No growth in Anaerobic bottle after 48 hours. 08/12/22 15:18 Aerobic Blood Culture - Final Blood No growth in Aerobic bottle after 5 days. Anaerobic Blood Culture - Final No growth in Anaerobic bottle after 5 days. 08/12/22 14:48 Aerobic Blood Culture - Final Blood No growth in Aerobic bottle after 5 days. Anaerobic Blood Culture - Final No growth in Anaerobic bottle after 5 days. 08/12/22 15:40 Urine Culture - Final Urine,Straight Cath Escherichia coli Enterococcus faecalis
--- NOTE | 2022-08-26 07:46 | Hospitalist Progress Note ---
Date of Service August 26, 2022 Assessment & Plan (1) ANDREA (acute kidney injury): Plan: 77 year old with chronic kidney disease with a hx of renal failure, paroxysmal A Fib and mechanical aortic valve on Coumadin, HTN, HLD, secondary hyperparathyroidism, h/o multiple myeloma, asymptomatic cholelithiasis, and hx of pancreatic cysts who presented with fatigue and weakness. ANDREA superimposed on CKD4, possibly ESRD -Preceding diarrhea. S/p emergent hemodialysis for uremia with HAGMA on 08/13 via R femoral HD catheter -Nephrology following -s/p HD permanent catheter placement 08/26/22 -Continue phosphate and potassium binders - S/p HD 08/26 Fever -Patient had temperature of 38.8 C at 48 hours ago -Remains without rise in white count. Patient has been afebrile since then. -No signs of active infection as far as we can tell. Completed antibiotic therapy for UTI -Repeat blood cultures from 08/22 without growth to date UTI (sepsis resolved) -UCx: pansensitive E Coli + enterococcus (tetracycline indeterminant). Ceftriaxone -> Augmentin as of 08/16 -Completed on total course of antibiotics of 10 days on 08/23 Concern for tick borne illness -Lyme Ab Babesia PCR and tickborne smear negative. Anaplasmosis PCR pending. Empiric doxycycline 08/13 - 08/18 -Clinically improved, afebrile, symptoms resolved Paroxysmal atrial fibrillation -Currently sinus -Continue home metoprolol at half dosing 25mg PO BID -Resume warfarin, bridge with heparin Hypocalcemia, improved -Occurred in setting of hyperphosphatemia in setting of severe ANDREA -Continue calcitriol, calcium carbonate and vitamin D supplementation Chronic anticoagulation, s/p aortic mechanical valve -Resume warfarin, bridge with heparin -outpatient INR goal 2.5-3.5 Pancytopenia, setting of multiple myeloma Chronic normocytic anemia, baseline Hb 8-9 -No signs of hemolysis on peripheral smear. -S/p Epogen 40,000 units, PRBC x2 units with HD on 08/13. 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 Transfuse Hgb < 7 F/E/N: Renal dialysis diet code: full DVT Prophylaxis: Resume Warfarin. Heparin IV ongoing Admission and Anticipated Discharge Date Admission Date: August 12, 2022 Supervising Physician Co-Signing Physician Notes I personally examined the patient and verified all taylor points of history and exam, discussed case, and agree with decision making with Dr Hernandez post procedure, doing OK no issues. Vitals noted, in general he is awake and alert pleasant no distress. op site c/d/i immediately after return from PACU. HEENT normocephalic atraumatic mucous membranes moist. Breathing unlabored no accessory muscle use good effort. Skin shows no rashes no pallor or icterus. ESRD - wants to continue w HD. line placement Tomorrow. case management/nephrology setting up outpt HD. heparin gtt to be resumed. follow. fever - 1x, August 21 - none since. blood cultures negative to date. has not recurred. otherwise as above Subjective Doing well this afternoon. Notes some pain at perm catheter site. Nursing notes some bleeding from site, that resolved with pressure dressing. Otherwise no complaints. Review of Systems Review of Systems: As per above Physical Exam Physical Exam: Constitutional: well-appearing, no acute distress HEENT: NCAT, no conjunctival injection CV: extremities well-perfused, no LE edema Resp: no increased work of breathing MSK: no gross deformities appreciated Skin: warm, dry, no rash appreciated Neuro: alert, oriented, no focal neurologic deficit appreciated Results & Data Results & Data Vital Signs (Past 12 Hours) Vital Signs Temp Pulse Pulse Resp BP BP Pulse Ox 08/26/22 07:19 36.7 C 75 18 155/69 H 97 08/26/22 07:00 66 08/26/22 02:57 36.7 C 72 18 126/45 L 99 08/25/22 22:24 79 08/25/22 23:06 36.6 C 74 18 141/65 H 98 08/25/22 22:32 O2 Del Method 08/26/22 07:19 Room Air 08/26/22 07:00 08/26/22 02:57 Room Air 08/25/22 22:24 08/25/22 23:06 Room Air 08/25/22 22:32 Room Air Resident Activity Tracking Resident Involvement: Resident Care Provided Care Provided: Adult Hospital Medicine
[2022-08-26 07:48] LABS: Hematocrit (blood only) 25.5 % (42.0-52.0); Hemoglobin 8.4 g/dl (14.0-18.0); Mean Corpuscular Hemoglobin 30.3 pg (25.0-34.0); Mean Corpuscular Hgb Conc 32.9 g/dL (32.0-36.0); Mean Corpuscular Volume 92.1 fL (80.0-100.0); Mean Platelet Volume 11.5 fL (9.4-12.4); Platelet Count 152 K/uL (130-400); RDW Coefficient of Variation 16.2 % (11.5-14.5); RDW Standard Deviation 53.7 fL (36.4-46.3); Red Blood Count 2.77 M/uL (4.70-6.10); White Blood Count 6.03 K/ul (4.8-10.8)
[2022-08-26] MEDS ORDERED: HEPARIN SOD (PORCINE) 5,000 UNITS/ML VIAL ONE (07:53)
[2022-08-26] MEDS ORDERED: LIDOCAINE 1% LOCAL 20 ML VIAL ONE (07:53)
[2022-08-26] MEDS ORDERED: ceFAZolin 2,000 MG/15 ML IV PUSH IV ONE (08:03)
[2022-08-26 08:04] LABS: INR 1.2 (0.9-1.1); Prothrombin Time 12.9 Seconds (9.0-12.0)
--- NOTE | 2022-08-26 08:04 | History & Physical Bridge Note ---
Date of Service August 26, 2022 History & Physical Bridge Note I have examined the patient, reviewed the History & Physical and in the interval since the performance of the History & Physical I have noted the following changes of clinical significance: no changes noted
[2022-08-26 08:15] LABS: BUN Creatinine Ratio 4.8 (10-20); Calcium 8.5 mg/dl (8.6-10.3); Creatinine Clr Calc Pharmacy 8.6 ml/min; Est GFR (African American) 8.3 ml/min; Est GFR (Non-African American) 7.2 ml/min; Potassium 4.4 mmol/L (3.5-5.1)
--- NOTE | 2022-08-26 08:30 | Nephrology Progress Note ---
Date of Service August 26, 2022 Assessment & Plan (1) ESRD (end stage renal disease): Plan: * Repeated episodes of ANDREA due to dehydration resulting in progressive renal dysfunction and ESKD. Creatinine continues to rise in between HD treatments * Afebrile since 08/21/22 @ 1928 hrs. WBC# remains WNL. Blood Cx x3 - negative. R femoral temporary dialysis catheter was removed 08/23/22 * R IJ TCC running A-->A at Qb 300 cc/min. No active bleeding from the exit site * Outpatient HD has been set up for [facility] starting at 10:30 am (2) Anemia: Plan: * Ferritin > 1200 * Will provide CHRISTIANA w/ HD today (3) Hypocalcemia: Plan: * Continue calcitriol to 0.5 mcg daily (4) Diarrhea: Plan: * Managed w/ Creon and Imodium therapy Admission and Anticipated Discharge Date Admission Date: August 12, 2022 Subjective Mr. Londono was evaluated during HD this morning. IJ TCC was running A-->A at Qb 300 cc/min. There was no bleeding from the exit site. Mr. Londono denied fever, angina or dyspnea. Review of Systems Constitutional: no fever Eyes: no worsening vision Ear, Nose, Mouth, Throat: no problem reported Respiratory: no cough and no dyspnea Cardiovascular: no chest pain Gastrointestinal: + diarrhea/loose stools; no abdominal pain Genitourinary: no dysuria or no urinary hesitancy Integumentary: no problem reported Physical Exam Constitutional: + frail appearing; not in distress Eyes: PERRL, conjunctivae normal, anicteric sclerae ENMT: external ear and nose normal, oropharynx normal Neck: trachea midline, no thyromegaly Respiratory: normal respiratory effort, lungs clear to auscultation Cardiovascular: Rate/Rhythm: + irregularly irregular Heart Sounds: normal S1 (prosthetic S2) Vessels: no JVD Extremities: no edema Gastrointestinal (Abdomen): normal bowel sounds, soft, nontender, no hepatosplenomegaly Musculoskeletal: Extremities: no cyanosis and no clubbing Skin: no rashes, warm and dry normal turgor Neurologic: Speech / Cognition: normal speech and normal cognition Results & Data Vital Signs (Past 12 Hours) Vital Signs Temp Pulse Pulse Resp BP BP Pulse Ox 08/26/22 07:19 36.7 C 75 18 155/69 H 97 08/26/22 07:00 66 08/26/22 02:57 36.7 C 72 18 126/45 L 99 08/25/22 22:24 79 08/25/22 23:06 36.6 C 74 18 141/65 H 98 08/25/22 22:32 O2 Del Method 08/26/22 07:19 Room Air 08/26/22 07:00 08/26/22 02:57 Room Air 08/25/22 22:24 08/25/22 23:06 Room Air 08/25/22 22:32 Room Air Laboratory Results Laboratory Tests 08/26/22 08/26/22 08/26/22 07:07 07:07 07:07 WBC 6.03 Hgb 8.4 L Hct 25.5 L Plt Count 152 INR 1.2 H Sodium 137 Potassium 4.4 Chloride 107 Carbon Dioxide 21 BUN 32 H Creatinine 6.70 H* D Glucose 88 PG Care Time/CCT Total # of Minutes Spent Total Time Spent with Patient: Total time spent is greater than 50% in coordination of care (as documented) at patient's floor/unit and/or counseling patient: Coding Level of Care Code 59831 SUB INP/OBS CARE 3/50MIN Diagnoses ESRD (end stage renal disease) N18.6 Anemia D64.9 Hypocalcemia E83.51 Diarrhea R19.7
[2022-08-26] MEDS: SEVELAMER HCL 800 MG TABLET PO SCH ×3 (08:38→16:57)
[2022-08-26] MEDS: PANCREAZE (LIPASE 10,500U) CAP PO SCH ×3 (08:38→16:57)
--- NOTE | 2022-08-26 09:16 | Operative Report ---
PG Post Operative Report Pre & Post Diagnosis Operation Date: 08/26/22 08:15 Pre-Op Diagnosis: End Stage Renal Disease Post-Op Diagnosis: End Stage Renal Disease I identified the patient and participated in the time-out.: Yes Procedure Operation Date: 08/26/22 08:15 Actual Procedures p Insertion of Perm Catheter, Right Internal Jugular Approach, Ultrasound Localization of Right Interanl Jugular vein, Fluoroscopy for Positioning(Right) - Ben eDlgado DO Surgeon Ben Delgado DO Molding Manager n/a Estimated Blood Loss 10 Findings Consistent with Post-Op Diagnosis Specimens none Description of Procedure After informed consent was obtained the patient was taken to the operating room and placed in supine position with right arm tucked. His rose was shaved and the entire neck upper chest shoulder etc. were all sterilely prepped and draped in usual fashion. I began by using the ultrasound to identify the right in ternal jugular vein. A skin garry was made and a skin wheal created with lidocaine. A finder needle was used to access the internal jugular without difficulty. I then used a large bore needle taking the same course and I was able to locate the internal jugular vein after several passes. Guidewire was advanced under fluoroscopy. The needle was subsequently removed. Some additional lidocaine was used to make a skin wheal in the right upper chest lateral to his existing Mediport. A small skin incision was made. Hemodialysis catheter connected to a tunneling device was advanced through this and up and out the insertion site of the guidewire. The catheter was pulled through far enough that the cuff was several centimeters under the skin. Serial dilations were made over the guidewire using fluoroscopy. A vascular dilator with peel- away sheath was then advanced over the guidewire into the internal jugular vein without difficulty. The dilator was removed and the catheter advanced through the peel-away sheath. The sheath was peeled away leaving just the catheter behind. There was a small kink in the catheter on fluoroscopy. I therefore advanced the guidewire and manually fixed the kink in the catheter. Both ports were flushed easily and easily withdrew dark venous blood. They were flushed a final time with saline followed by heparin. The catheter was secured to the skin using 3-0 nylon. I did use a Franco needle to access his existing access port. It easily withdrew dark venous blood and it was flushed with heparin as well. The neck incision was closed using 4-0 Vicryl and Dermabond glue. Sterile dressing was placed over the hemodialysis catheter. The patient was awakened and transferred recovery in stable condition. A postoperative chest x- ray is currently pending to verify catheter position and run pneumothorax. I attest to the content of the Intraoperative Record and any orders documented therein. Any exceptions are noted below.
--- NOTE | 2022-08-26 09:34 | XRay Report ---
SINGLE VIEW CHEST CLINICAL HISTORY: Central venous catheter placement. FINDINGS: An AP, portable, upright chest radiograph is compared to study dated 08/12/2022. The patient is status post midline sternotomy. A right internal jugular central venous infusion port is unchange d in position. A right internal jugular central venous catheter has been placed. The tip projects ove r the SVC. The heart is enlarged. The pulmonary vasculature is noncongested. Chronic interstitial thi ckening is similar to previous. There is bibasilar scarring/atelectasis. No airspace consolidation or large pleural effusion is identified. No pneumothorax is seen. The skeletal structures are osteopeni c. There are chronic/healed left-sided rib fractures. IMPRESSION: 1. Cardiomegaly without radiographic evidence of congestive failure. 2. A right internal jugular central venous catheter is new from previous. No pneumothorax is seen pos t procedure. 3. No airspace consolidation or large pleural effusion is identified. ACT 112: Negative or not required by law. Electronically signed by: Cuauhtemoc Fuchs M.D. 08/26/2022 9:33 AM
--- NOTE | 2022-08-26 09:42 | Anesthesiology Progress Note ---
Date of Service August 26, 2022 Anesthesia Post Procedure Vital Signs Vital Signs: Temp Pulse Pulse Pulse Resp BP BP 08/26/22 09:30 71 14 132/64 08/26/22 09:20 76 18 115/66 08/26/22 09:10 36.0 C L 76 18 125/56 L 08/26/22 07:19 36.7 C 75 18 155/69 H 08/26/22 07:00 66 08/26/22 02:57 36.7 C 72 18 126/45 L 08/25/22 22:24 79 08/25/22 23:06 36.6 C 74 18 141/65 H 08/25/22 22:32 08/25/22 19:34 36.5 C 77 18 144/61 H 08/25/22 16:10 36.6 C 76 18 146/72 H 08/25/22 15:38 70 08/25/22 11:45 36.5 C 68 18 132/63 Pulse Ox O2 Del Method O2 Flow Rate 08/26/22 09:30 95 Room Air 08/26/22 09:20 96 Room Air 08/26/22 09:10 100 Oxymask 6 08/26/22 07:19 97 Room Air 08/26/22 07:00 08/26/22 02:57 99 Room Air 08/25/22 22:24 08/25/22 23:06 98 Room Air 08/25/22 22:32 Room Air 08/25/22 19:34 99 Room Air 08/25/22 16:10 98 Room Air 08/25/22 15:38 08/25/22 11:45 98 Room Air Pain Intensity Generalized: Pain Intensity: 0 Left Knee: Pain Intensity: 4 Right Chest: Pain Intensity: 5 Transfer of Care Handoff Completed per policy Notes Mental Status: alert / awake / arousable and participated in evaluation Patient Amnestic to Procedure: Yes Nausea / Vomiting: adequately controlled Pain: adequately controlled Airway Patency, RR, SpO2: stable & adequate BP & HR: stable & adequate Hydration State: stable & adequate Anesthetic Complications: no major complications apparent and Pt Satisfied with anesthetic care
[2022-08-26] MEDS: CHOLECALCIFEROL 1,000 UNITS 25 MCG TAB PO SCH (14:58)
[2022-08-26] MEDS: CALCITRIOL 0.25 MCG CAPSULE PO SCH (14:58)
[2022-08-26] MEDS: METOPROLOL TARTRATE 25 MG TAB PO SCH ×2 (14:58→20:15)
[2022-08-26] MEDS ORDERED: HYDROmorphone INJ 0.5 MG/0.5 ML SYR IV ONE (17:00)
[2022-08-26] MEDS: WARFARIN SOD 2.5 MG TAB PO SCH (17:36)
[2022-08-26] MEDS ORDERED: ACETAMINOPHEN 500 MG TAB PO PRN (18:42)
--- NOTE | 2022-08-26 18:55 | Billing Data ---
Date of Service August 26, 2022 Coding Level of Care Code 31253 SUB INP/OBS CARE MIN
[2022-08-26] MEDS: TAMSULOSIN HCL 0.4 MG CAP PO SCH (20:15)
[2022-08-26 21:16] LABS: Partial Thromboplastin Ratio 1.4; Partial Thromboplastin Time 38.7 Seconds (21.0-31.0)
[2022-08-27 03:37] LABS: Hematocrit (blood only) 25.9 % (42.0-52.0); Hemoglobin 8.4 g/dl (14.0-18.0); Mean Corpuscular Hemoglobin 30.2 pg (25.0-34.0); Mean Corpuscular Hgb Conc 32.4 g/dL (32.0-36.0); Mean Corpuscular Volume 93.2 fL (80.0-100.0); Mean Platelet Volume 11.3 fL (9.4-12.4); Platelet Count 137 K/uL (130-400); RDW Coefficient of Variation 16.6 % (11.5-14.5); RDW Standard Deviation 54.9 fL (36.4-46.3); Red Blood Count 2.78 M/uL (4.70-6.10); White Blood Count 4.97 K/ul (4.8-10.8)
[2022-08-27 03:55] LABS: BUN Creatinine Ratio 4.5 (10-20); Calcium 8.6 mg/dl (8.6-10.3); Creatinine Clr Calc Pharmacy 13.9 ml/min; Est GFR (African American) 14.8 ml/min; Est GFR (Non-African American) 12.7 ml/min; Potassium 4.1 mmol/L (3.5-5.1)
[2022-08-27 04:19] LABS: Partial Thromboplastin Ratio 1.6
[2022-08-27 04:20] LABS: Partial Thromboplastin Time 45.3 Seconds (21.0-31.0)
--- NOTE | 2022-08-27 07:50 | Hospitalist Progress Note ---
Date of Service August 27, 2022 Assessment & Plan (1) ANDREA (acute kidney injury): Plan: 77 year old with chronic kidney disease with a hx of renal failure, paroxysmal A Fib and mechanical aortic valve on Coumadin, HTN, HLD, secondary hyperparathyroidism, h/o multiple myeloma, asymptomatic cholelithiasis, and hx of pancreatic cysts who presented with fatigue and weakness. ANDREA superimposed on CKD4, possibly ESRD -Preceding diarrhea. S/p emergent hemodialysis for uremia with HAGMA on 08/13 via R femoral HD catheter -Nephrology following -s/p HD permanent catheter placement 08/26/22 -Continue phosphate and potassium binders - S/p HD 08/26 Fever -Patient had temperature of 38.8 C 08/21 -Remains without rise in white count. Patient has been afebrile since then. -No signs of active infection as far as we can tell. Completed antibiotic therapy for UTI -Repeat blood cultures from 08/22 without growth to date UTI (sepsis resolved) -UCx: pansensitive E Coli + enterococcus (tetracycline indeterminant). Ceftriaxone -> Augmentin as of 08/16 -Completed on total course of antibiotics of 10 days on 08/23 Concern for tick borne illness -Lyme Ab Babesia PCR and tickborne smear negative. Anaplasmosis PCR pending. Empiric doxycycline 08/13 - 08/18 -Clinically improved, afebrile, symptoms resolved Paroxysmal atrial fibrillation -Continue home metoprolol at half dosing 25mg PO BID -Resume warfarin, bridge with heparin Hypocalcemia, improved -Occurred in setting of hyperphosphatemia in setting of severe ANDREA -Continue calcitriol, calcium carbonate and vitamin D supplementation Chronic anticoagulation, s/p aortic mechanical valve -Resume warfarin, bridge with heparin -outpatient INR goal 2.5-3.5 Pancytopenia, setting of multiple myeloma Chronic normocytic anemia, baseline Hb 8-9 -No signs of hemolysis on peripheral smear. -S/p Epogen 40,000 units, PRBC x2 units with HD on 08/13. 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 Transfuse Hgb < 7 F/E/N: Renal dialysis diet code: full DVT Prophylaxis: Resume Warfarin. Heparin IV ongoing Admission and Anticipated Discharge Date Admission Date: August 12, 2022 Supervising Physician Co-Signing Physician Notes I personally examined the patient and verified all taylor points of history and exam, discussed case, and agree with decision making with Dr Hernandez feeling OK overall. reading. Vitals noted, in general he is awake and alert pleasant no distress. op site c/d/i overall - small amount of blood on gauze but overall dry/clean. HEENT normocephalic atraumatic mucous membranes moist. Breathing unlabored no accessory muscle use good effort. Skin shows no rashes no pallor or icterus. ESRD - permacath placed. HD ongoing. home once INR >2 fever - 1x, August 21 - none since. blood cultures negative to date. has not recurred. otherwise as above Subjective Messi was doing well this morning. Bleeding at perm catheter site has resolved. Still having some pain. Review of Systems Review of Systems: As per above Physical Exam Physical Exam: Constitutional: well-appearing, no acute distress HEENT: NCAT, no conjunctival injection CV: extremities well-perfused, no LE edema Resp: no increased work of breathing MSK: no gross deformities appreciated Skin: warm, dry, no rash appreciated Neuro: alert, oriented, no focal neurologic deficit appreciated Results & Data Results & Data Vital Signs (Past 12 Hours) Vital Signs Temp Pulse Pulse Resp BP Pulse Ox O2 Del Method 08/27/22 06:02 63 08/26/22 21:58 74 08/27/22 04:00 Room Air 08/27/22 03:00 36.5 C 65 14 138/59 L 96 Room Air 08/26/22 22:50 36.8 C 78 17 143/68 H 96 Room Air Resident Activity Tracking Resident Involvement: Resident Care Provided Care Provided: Adult Hospital Medicine
--- NOTE | 2022-08-27 08:38 | Surgery Progress Note ---
Date of Service August 27, 2022 Assessment & Plan (1) Permanent central venous catheter in place: Plan: Doing okay postoperative #1 We will replace the dressing today. Hemodialysis catheter okay to use when nephrology needs it. Dr. Westfall covering for the weekend if any problems or issues Admission and Anticipated Discharge Date Admission Date: August 12, 2022 Subjective Patient seen. Feeling okay. Had some issues with leakage of blood around the catheter last night and a pressure dressing was placed Physical Exam Physical Exam: Alert and oriented Catheter appears to be in place. No active bleeding Results & Data Vital Signs (Past 12 Hours) Vital Signs Temp Pulse Pulse Resp BP Pulse Ox O2 Del Method 08/27/22 07:18 36.4 C L 56 L 18 141/56 H 98 Room Air 08/27/22 06:02 63 08/26/22 21:58 74 08/27/22 04:00 Room Air 08/27/22 03:00 36.5 C 65 14 138/59 L 96 Room Air 08/26/22 22:50 36.8 C 78 17 143/68 H 96 Room Air PG Care Time/CCT Total # of Minutes Spent Total Time Spent with Patient: Total time spent is greater than 50% in coordination of care (as documented) at patient's floor/unit and/or counseling patient: Coding Level of Care Code 79142 Post Operative Follow-Up Diagnoses Permanent central venous catheter in place Z95.828
--- NOTE | 2022-08-27 08:44 | Nephrology Progress Note ---
Date of Service August 27, 2022 Assessment & Plan (1) ESRD (end stage renal disease): Plan: * Repeated episodes of ANDREA due to dehydration resulting in progressive renal dysfunction and ESKD. Creatinine continues to rise in between HD treatments * R femoral temporary dialysis catheter was removed 08/23/22 * R IJ TCC placed 08/26/22 * Bleeding from R IJ TCC overnight related to heparin gtt. Surgery is aware. Pressure dressing has been applied * Volume status and electrolyte balance are acceptable. No acute indication for HD today. Will schedule next treatment for am (heparin free) * Outpatient HD has been set up for [facility] starting at 10:30 am (2) Anemia: Plan: * Ferritin > 1200 * Will provide CHRISTIANA w/ HD tomorrow (3) Hypocalcemia: Plan: * Continue calcitriol to 0.5 mcg daily (4) Diarrhea: Plan: * Managed w/ Creon and Imodium therapy Admission and Anticipated Discharge Date Admission Date: August 12, 2022 Subjective Mr. Londono was evaluated in his hospital room this morning. He developed bleeding from his IJ TCC site after heparin gtt was restarted. He currently has a pressure dressing in place. Mr. Londono denies fever, angina or dyspnea Review of Systems Constitutional: no fever Eyes: no worsening vision Ear, Nose, Mouth, Throat: no problem reported Respiratory: no cough and no dyspnea Cardiovascular: no chest pain Gastrointestinal: + diarrhea/loose stools; no abdominal pain Genitourinary: no dysuria or no urinary hesitancy Integumentary: no problem reported Physical Exam Constitutional: + frail appearing; not in distress Eyes: PERRL, conjunctivae normal, anicteric sclerae ENMT: external ear and nose normal, oropharynx normal Neck: trachea midline, no thyromegaly Respiratory: normal respiratory effort, lungs clear to auscultation Cardiovascular: Rate/Rhythm: + irregularly irregular Heart Sounds: normal S1 (prosthetic S2) Vessels: no JVD Extremities: no edema Gastrointestinal (Abdomen): normal bowel sounds, soft, nontender, no hepatosplenomegaly Musculoskeletal: Extremities: no cyanosis and no clubbing Skin: no rashes, warm and dry normal turgor Neurologic: Speech / Cognition: normal speech and normal cognition Results & Data Vital Signs (Past 12 Hours) Vital Signs Temp Pulse Pulse Resp BP Pulse Ox O2 Del Method 08/27/22 07:18 36.4 C L 56 L 18 141/56 H 98 Room Air 08/27/22 06:02 63 08/26/22 21:58 74 08/27/22 04:00 Room Air 08/27/22 03:00 36.5 C 65 14 138/59 L 96 Room Air 08/26/22 22:50 36.8 C 78 17 143/68 H 96 Room Air Laboratory Results Laboratory Tests 08/27/22 08/27/22 03:23 03:23 WBC 4.97 Hgb 8.4 L Hct 25.9 L Plt Count 137 Sodium 136 Potassium 4.1 Chloride 105 Carbon Dioxide 23 BUN 19 Creatinine 4.18 H D Glucose 128 H Laboratory Tests 08/27/22 08/27/22 03:23 08:23 INR 1.3 H APTT 45.3 H* PG Care Time/CCT Total # of Minutes Spent Total Time Spent with Patient: Total time spent is greater than 50% in coordination of care (as documented) at patient's floor/unit and/or counseling patient: Coding Level of Care Code 65172 SUB INP/OBS CARE 3/50MIN Diagnoses ESRD (end stage renal disease) N18.6 Anemia D64.9 Hypocalcemia E83.51 Diarrhea R19.7
[2022-08-27] MEDS: PANCREAZE (LIPASE 10,500U) CAP PO SCH ×3 (08:57→16:30)
[2022-08-27] MEDS: CALCITRIOL 0.25 MCG CAPSULE PO SCH (08:58)
[2022-08-27] MEDS: CHOLECALCIFEROL 1,000 UNITS 25 MCG TAB PO SCH (08:58)
[2022-08-27] MEDS: SEVELAMER HCL 800 MG TABLET PO SCH ×3 (08:58→16:30)
[2022-08-27] MEDS: METOPROLOL TARTRATE 25 MG TAB PO SCH ×2 (08:59→21:10)
[2022-08-27 09:10] LABS: INR 1.3 (0.9-1.1); Prothrombin Time 13.9 Seconds (9.0-12.0)
[2022-08-27] MEDS: HEPARIN SODIUM/DEXTROSE 25,000 UNITS/500 ML BAG IV SCH ×2 (13:37→13:41)
[2022-08-27] MEDS: WARFARIN SOD 2.5 MG TAB PO SCH (16:37)
--- NOTE | 2022-08-27 18:57 | Billing Data ---
Date of Service August 27, 2022 Coding Level of Care Code 54466 SUB INP/OBS CARE
[2022-08-27] MEDS: TAMSULOSIN HCL 0.4 MG CAP PO SCH (21:10)
[2022-08-28 04:41] LABS: Hematocrit (blood only) 27.9 % (42.0-52.0); Hemoglobin 8.9 g/dl (14.0-18.0); Mean Corpuscular Hemoglobin 30.5 pg (25.0-34.0); Mean Corpuscular Hgb Conc 31.9 g/dL (32.0-36.0); Mean Corpuscular Volume 95.5 fL (80.0-100.0); Mean Platelet Volume 10.8 fL (9.4-12.4); Platelet Count 135 K/uL (130-400); RDW Coefficient of Variation 16.9 % (11.5-14.5); RDW Standard Deviation 57.9 fL (36.4-46.3); Red Blood Count 2.92 M/uL (4.70-6.10); White Blood Count 5.15 K/ul (4.8-10.8)
[2022-08-28 05:06] LABS: INR 1.4 (0.9-1.1); Prothrombin Time 15.2 Seconds (9.0-12.0)
[2022-08-28 05:10] LABS: BUN Creatinine Ratio 5.5 (10-20); Calcium 9.1 mg/dl (8.6-10.3); Creatinine Clr Calc Pharmacy 10.6 ml/min; Est GFR (African American) 10.7 ml/min; Est GFR (Non-African American) 9.2 ml/min
[2022-08-28 05:21] LABS: Partial Thromboplastin Ratio 1.6
[2022-08-28 05:37] LABS: Partial Thromboplastin Time 45.8 Seconds (21.0-31.0)
[2022-08-28] MEDS ORDERED: EPOETIN ALFA 10,000 UNITS/ML VIAL IV ONE (07:00)
[2022-08-28] MEDS ORDERED: SODIUM CHLORIDE 0.9% 1000ML 1,000 ML IV PRN (07:00)
--- NOTE | 2022-08-28 07:12 | Hospitalist Progress Note ---
Date of Service August 28, 2022 Assessment & Plan (1) ANDREA (acute kidney injury): Plan: 77 year old with chronic kidney disease with a hx of renal failure, paroxysmal A Fib and mechanical aortic valve on Coumadin, HTN, HLD, secondary hyperparathyroidism, h/o multiple myeloma, asymptomatic cholelithiasis, and hx of pancreatic cysts who presented with fatigue and weakness. ANDREA superimposed on CKD4, possibly ESRD -Preceding diarrhea. S/p emergent hemodialysis for uremia with HAGMA on 08/13 via R femoral HD catheter -Nephrology following -s/p HD permanent catheter placement 08/26/22 -Continue phosphate and potassium binders - Plan for HD today Fever -Patient had temperature of 38.8 C 08/21 -Remains without rise in white count. Patient has been afebrile since then. -No signs of active infection as far as we can tell. Completed antibiotic therapy for UTI -Repeat blood cultures from 08/22 without growth to date UTI (sepsis resolved) -UCx: pansensitive E Coli + enterococcus (tetracycline indeterminant). Ceftriaxone -> Augmentin as of 08/16 -Completed on total course of antibiotics of 10 days on 08/23 Concern for tick borne illness -Lyme Ab Babesia PCR and tickborne smear negative. Anaplasmosis PCR pending. Empiric doxycycline 08/13 - 08/18 -Clinically improved, afebrile, symptoms resolved Paroxysmal atrial fibrillation -Continue home metoprolol at half dosing 25mg PO BID -Resume warfarin, bridge with heparin Hypocalcemia, improved -Occurred in setting of hyperphosphatemia in setting of severe ANDREA -Continue calcitriol, calcium carbonate and vitamin D supplementation Chronic anticoagulation, s/p aortic mechanical valve -Resume warfarin, bridge with heparin -outpatient INR goal 2.5-3.5 - Goal INR of above 2 prior to d/c, INR= 1.4 today Pancytopenia, setting of multiple myeloma Chronic normocytic anemia, baseline Hb 8-9 -No signs of hemolysis on peripheral smear. -S/p Epogen 40,000 units, PRBC x2 units with HD on 08/13. 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 Transfuse Hgb < 7 F/E/N: Renal dialysis diet code: full DVT Prophylaxis: Resume Warfarin. Heparin IV ongoing Admission and Anticipated Discharge Date Admission Date: August 12, 2022 Supervising Physician Co-Signing Physician Notes I personally examined the patient and verified all taylor points of history and exam, discussed case, and agree with decision making with Dr Hernandez sleeping - on HD when i see him. HD nurse notes no problems. vitals noted resting nad heent nc at breathing unlabored no accessory muscles good effort skin no rashes no pallor or icterus ESRD - HD ongoing. home once INR >2. doing well. fever - 1x, August 21 - none since. blood cultures negative to date. has not recurred. otherwise as above Subjective Messi was doing well this morning. No complaints. Getting ready to go to dialysis. Review of Systems Review of Systems: As per above Physical Exam Physical Exam: Constitutional: well-appearing, no acute distress HEENT: NCAT, no conjunctival injection CV: extremities well-perfused, no LE edema Resp: no increased work of breathing MSK: no gross deformities appreciated Skin: warm, dry, no rash appreciated Neuro: alert, oriented, no focal neurologic deficit appreciated Results & Data Results & Data Vital Signs (Past 12 Hours) Vital Signs Temp Pulse Pulse Resp BP Pulse Ox O2 Del Method 08/28/22 04:08 36.5 C 68 20 132/70 98 Room Air 08/28/22 02:51 71 08/27/22 20:00 Room Air 08/27/22 23:22 36.3 C L 70 20 144/64 H 98 Room Air 08/27/22 19:44 36.6 C 74 20 149/54 H 99 Room Air Resident Activity Tracking Resident Involvement: Resident Care Provided Care Provided: Adult Hospital Medicine
[2022-08-28] MEDS: SEVELAMER HCL 800 MG TABLET PO SCH ×3 (08:00→17:35)
[2022-08-28] MEDS: METOPROLOL TARTRATE 25 MG TAB PO SCH ×2 (08:00→20:05)
[2022-08-28] MEDS: PANCREAZE (LIPASE 10,500U) CAP PO SCH ×3 (08:00→17:34)
[2022-08-28] MEDS: CHOLECALCIFEROL 1,000 UNITS 25 MCG TAB PO SCH (08:00)
[2022-08-28] MEDS: CALCITRIOL 0.25 MCG CAPSULE PO SCH (08:00)
--- NOTE | 2022-08-28 10:51 | Nephrology Progress Note ---
Date of Service August 28, 2022 Assessment & Plan (1) ESRD (end stage renal disease): (2) Anemia: (3) Secondary hyperparathyroidism: (4) Hypertension: Plan ESRD, started on hemodialysis on 08/13/22 via right femoral temporary dialysis catheter, temporary catheter was removed on 08/23/2022 and had right IJ tunneled dialysis catheter placed on 08/26/2022. Developed bleeding at the catheter site after started on heparin, bleeding currently stopped and hemoglobin stable. Coumadin was resumed and INR increased to 1.4. --Tolerating dialysis, tolerating UF of 2 L, blood pressure relatively stable. Otherwise asymptomatic. Currently mainly waiting for INR to be therapeutic. --Outpatient HD has been set up for [facility] starting at 10:30 am -- left arm nephrology precaution, does medications for eGFR less than 10 Will follow Admission and Anticipated Discharge Date Admission Date: August 12, 2022 Kimberly Swenson was seen and examined during dialysis this morning. He has been tolerating dialysis well, tolerating UF goal of 2 L. Blood pressure well controlled. No active bleeding at the tunneled dialysis catheter site. hemoglobin stable. INR increased to 1.4. Review of Systems Review of Systems: Detailed review of system was otherwise unremarkable. Physical Exam Constitutional: WD/WN, vitals as above no acute distress Neck: normal visual inspection rt IJ TDC, no active bleeding. Respiratory: Auscultation: lungs clear to auscultation bilaterally Cardiovascular: Rate/Rhythm: regular rate and regular rhythm Heart Sounds: + murmur Extremities: no edema Skin: no rashes Neurologic: no focal motor deficits Psychiatric: Orientation: alert and oriented x 3 Results & Data Vital Signs (Past 12 Hours) Vital Signs Temp Pulse Pulse Pulse Resp BP BP 08/28/22 10:30 63 112/54 L 08/28/22 10:00 79 127/73 08/28/22 09:30 73 137/76 08/28/22 09:00 74 147/66 H 08/28/22 08:30 56 L 119/64 08/28/22 08:19 68 152/66 H 08/28/22 08:14 36.5 C 69 08/28/22 07:48 36.4 C L 67 18 163/67 H 08/28/22 04:08 36.5 C 68 20 132/70 08/28/22 02:51 71 08/27/22 23:22 36.3 C L 70 20 144/64 H Pulse Ox O2 Del Method 08/28/22 10:30 08/28/22 10:00 08/28/22 09:30 08/28/22 09:00 08/28/22 08:30 08/28/22 08:19 08/28/22 08:14 08/28/22 07:48 98 Room Air 08/28/22 04:08 98 Room Air 08/28/22 02:51 08/27/22 23:22 98 Room Air PG Care Time/CCT Total # of Minutes Spent Total Time Spent with Patient: Total time spent is greater than 50% in coordination of care (as documented) at patient's floor/unit and/or counseling patient: Coding Level of Care Code 29562 SUB INP/OBS CARE 2/35MIN Diagnoses ESRD (end stage renal disease) N18.6 Anemia D64.9 Secondary hyperparathyroidism N25.81 Hypertension I10
[2022-08-28] MEDS: HEPARIN SODIUM/DEXTROSE 25,000 UNITS/500 ML BAG IV SCH (12:50)
--- NOTE | 2022-08-28 16:11 | Billing Data ---
Date of Service August 28, 2022 Coding Level of Care Code 86443 SUB INP/OBS CARE
[2022-08-28] MEDS: WARFARIN SOD 2.5 MG TAB PO SCH (17:34)
[2022-08-28] MEDS: TAMSULOSIN HCL 0.4 MG CAP PO SCH (20:05)
[2022-08-29 06:02] LABS: BUN Creatinine Ratio 4.3 (10-20); Creatinine Clr Calc Pharmacy 14.5 ml/min; Est GFR (African American) 15.7 ml/min; Est GFR (Non-African American) 13.5 ml/min
[2022-08-29 06:06] LABS: Basophils # (auto) 0.05 K/uL (0-0.2); Basophils % (auto) 0.9 %; Eosinophils # (auto) 0.24 K/uL (0-0.50); Eosinophils % (auto) 4.1 %; Hematocrit (blood only) 28.1 % (42.0-52.0); Hemoglobin 9.2 g/dl (14.0-18.0); Immature Granulocytes # (auto) 0.09 K/uL (0.01-0.20); Immature Granulocytes % (auto) 1.5 %; Lymphocytes # (auto) 0.89 K/uL (1.2-3.4); Lymphocytes % (auto) 15.3 %; Mean Corpuscular Hgb Conc 32.7 g/dL (32.0-36.0); Mean Corpuscular Volume 94.6 fL (80.0-100.0); Mean Platelet Volume 11.4 fL (9.4-12.4); Monocytes # (auto) 0.61 K/uL (0.11-0.59); Monocytes % (auto) 10.5 %; Neutrophils # (auto) 3.95 K/uL (1.40-6.50); Neutrophils % (auto) 67.7 %; Platelet Count 135 K/uL (130-400); RDW Coefficient of Variation 17.2 % (11.5-14.5); RDW Standard Deviation 59.3 fL (36.4-46.3); Red Blood Count 2.97 M/uL (4.70-6.10); White Blood Count 5.83 K/ul (4.8-10.8)
--- NOTE | 2022-08-29 07:01 | Hospitalist Progress Note ---
Date of Service August 29, 2022 Assessment & Plan (1) ANDREA (acute kidney injury): Plan: 77 year old with chronic kidney disease with a hx of renal failure, paroxysmal A Fib and mechanical aortic valve on Coumadin, HTN, HLD, secondary hyperparathyroidism, h/o multiple myeloma, asymptomatic cholelithiasis, and hx of pancreatic cysts who presented with fatigue and weakness. ANDREA superimposed on CKD4, possibly ESRD -Preceding diarrhea. S/p emergent hemodialysis for uremia with HAGMA on 08/13 via R femoral HD catheter -Nephrology following -s/p HD permanent catheter placement 08/26/22 -Continue phosphate and potassium binders - Last HD session 08/28 Fever -Patient had temperature of 38.8 C 08/21 -Remains without rise in white count. Patient has been afebrile since then. -No signs of active infection as far as we can tell. Completed antibiotic therapy for UTI -Repeat blood cultures from 08/22 without growth to date UTI (sepsis resolved) -UCx: pansensitive E Coli + enterococcus (tetracycline indeterminant). Ceftriaxone -> Augmentin as of 08/16 -Completed on total course of antibiotics of 10 days on 08/23 Concern for tick borne illness -Lyme Ab Babesia PCR and tickborne smear negative. Anaplasmosis PCR pending. Empiric doxycycline 08/13 - 08/18 -Clinically improved, afebrile, symptoms resolved Paroxysmal atrial fibrillation -Continue home metoprolol at half dosing 25mg PO BID -Resume warfarin, bridge with heparin - Was given extra 5mg Warfarin 08/29 as INR is still subtherapeutic Hypocalcemia, improved -Occurred in setting of hyperphosphatemia in setting of severe ANDREA -Continue calcitriol, calcium carbonate and vitamin D supplementation Chronic anticoagulation, s/p aortic mechanical valve -Resume warfarin, bridge with heparin -outpatient INR goal 2.5-3.5 - Goal INR of above 2 prior to d/c, INR= 1.3 today Pancytopenia, setting of multiple myeloma Chronic normocytic anemia, baseline Hb 8-9 -No signs of hemolysis on peripheral smear. -S/p Epogen 40,000 units, PRBC x2 units with HD on 08/13. 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 Transfuse Hgb < 7 F/E/N: Renal dialysis diet code: full DVT Prophylaxis: Warfarin with Heparin bridge (2) Permanent central venous catheter in place: (3) Fever: (4) ESRD (end stage renal disease): (5) Paroxysmal A-fib: (6) Anemia: (7) Complicated urinary tract infection: (8) Thrombocytopathia: (9) Chronic kidney disease: Admission and Anticipated Discharge Date Admission Date: August 12, 2022 Supervising Physician Co-Signing Physician Notes I personally examined the patient and verified all taylor points of history and exam, discussed case, and agree with decision making with Dr Hernandez feeling fairly good no problems just waiting on INR to be therapeutic. vitals noted resting nad heent nc at breathing unlabored no accessory muscles good effort skin no rashes no pallor or icterus ESRD - HD ongoing. home once INR >2. doing well. additional coumadin x1 today fever - 1x, August 21 - none since. blood cultures negative to date. has not recurred. otherwise as above Subjective Messi was doing well this morning. No complaints. INR still sub-therapeutic, which he was disappointed about. Review of Systems Review of Systems: As per above Physical Exam Physical Exam: Constitutional: well-appearing, no acute distress HEENT: NCAT, no conjunctival injection CV: extremities well-perfused, no LE edema Resp: no increased work of breathing MSK: no gross deformities appreciated Skin: warm, dry, no rash appreciated Neuro: alert, oriented, no focal neurologic deficit appreciated Results & Data Results & Data Vital Signs (Past 12 Hours) Vital Signs Temp Pulse Pulse Resp BP Pulse Ox O2 Del Method 08/28/22 22:01 80 08/28/22 23:18 36.4 C L 75 20 152/71 H 100 Room Air 08/28/22 20:08 Room Air 08/28/22 19:57 36.5 C 81 20 127/64 98 Room Air Resident Activity Tracking Resident Involvement: Resident Care Provided Care Provided: Adult Hospital Medicine
[2022-08-29 07:05] LABS: INR 1.3 (0.9-1.1); Prothrombin Time 14.1 Seconds (9.0-12.0)
[2022-08-29 07:51] LABS: Partial Thromboplastin Ratio 1.7
[2022-08-29 07:55] LABS: Partial Thromboplastin Time 48.1 Seconds (21.0-31.0)
[2022-08-29] MEDS ORDERED: WARFARIN SOD 5 MG TAB PO ONE (08:31)
[2022-08-29] MEDS: CHOLECALCIFEROL 1,000 UNITS 25 MCG TAB PO SCH (09:01)
[2022-08-29] MEDS: PANCREAZE (LIPASE 10,500U) CAP PO SCH ×3 (09:01→16:41)
[2022-08-29] MEDS: METOPROLOL TARTRATE 25 MG TAB PO SCH ×2 (09:02→19:44)
[2022-08-29] MEDS: SEVELAMER HCL 800 MG TABLET PO SCH ×3 (09:02→16:41)
[2022-08-29] MEDS: CALCITRIOL 0.25 MCG CAPSULE PO SCH (09:02)
--- NOTE | 2022-08-29 10:48 | Nephrology Progress Note ---
Date of Service August 29, 2022 Assessment & Plan (1) ESRD (end stage renal disease): (2) Anemia: (3) Secondary hyperparathyroidism: (4) Hypertension: Plan ESRD, started on hemodialysis on 08/13/22 via right femoral temporary dialysis catheter, temporary catheter was removed on 08/23/2022 and had right IJ tunneled dialysis catheter placed on 08/26/2022. Developed bleeding at the catheter site after started on heparin, bleeding currently stopped and hemoglobin stable. Coumadin was resumed and INR increased to 1.4. Otherwise asymptomatic. Currently mainly waiting for INR to be therapeutic. --Outpatient HD has been set up for [facility] starting at 10:30 am -- left arm nephrology precaution, does medications for eGFR less than 10 Will follow Admission and Anticipated Discharge Date Admission Date: August 12, 2022 Kimberly Swenson was seen and examined this morning. He has been feeling well but frustrated as INR still low at 1.3. Blood pressure well controlled. No active bleeding at the tunneled dialysis catheter site. hemoglobin stable. Review of Systems Review of Systems: Detailed review of system was otherwise unremarkable. Physical Exam Constitutional: WD/WN, vitals as above no acute distress Neck: normal visual inspection rt IJ TDC, no active bleeding. Respiratory: Auscultation: lungs clear to auscultation bilaterally Cardiovascular: Rate/Rhythm: regular rate and regular rhythm Heart Sounds: + murmur Extremities: no edema Skin: no rashes Neurologic: no focal motor deficits Psychiatric: Orientation: alert and oriented x 3 Results & Data Vital Signs (Past 12 Hours) Vital Signs Temp Pulse Resp BP Pulse Ox O2 Del Method 08/29/22 07:43 36.6 C 70 16 133/68 96 Room Air 08/28/22 23:18 36.4 C L 75 20 152/71 H 100 Room Air PG Care Time/CCT Total # of Minutes Spent Total Time Spent with Patient: Total time spent is greater than 50% in coordination of care (as documented) at patient's floor/unit and/or counseling patient: Coding Level of Care Code 77184 SUB INP/OBS CARE 2/35MIN Diagnoses ESRD (end stage renal disease) N18.6 Anemia D64.9 Secondary hyperparathyroidism N25.81 Hypertension I10
[2022-08-29] MEDS: HEPARIN SODIUM/DEXTROSE 25,000 UNITS/500 ML BAG IV SCH (14:12)
[2022-08-29] MEDS: WARFARIN SOD 2.5 MG TAB PO SCH (16:41)
--- NOTE | 2022-08-29 16:48 | Billing Data ---
Date of Service August 29, 2022 Coding Level of Care Code 10574 SUB INP/OBS CARE
[2022-08-29] MEDS: TAMSULOSIN HCL 0.4 MG CAP PO SCH (19:44)
[2022-08-30 07:33] LABS: Basophils # (auto) 0.06 K/uL (0-0.2); Basophils % (auto) 1.3 %; Eosinophils # (auto) 0.31 K/uL (0-0.50); Eosinophils % (auto) 6.8 %; Hematocrit (blood only) 27.8 % (42.0-52.0); Hemoglobin 9.3 g/dl (14.0-18.0); Immature Granulocytes # (auto) 0.07 K/uL (0.01-0.20); Immature Granulocytes % (auto) 1.5 %; Lymphocytes # (auto) 1.14 K/uL (1.2-3.4); Lymphocytes % (auto) 25.1 %; Mean Corpuscular Hgb Conc 33.5 g/dL (32.0-36.0); Mean Corpuscular Volume 92.7 fL (80.0-100.0); Mean Platelet Volume 11.8 fL (9.4-12.4); Monocytes # (auto) 0.52 K/uL (0.11-0.59); Monocytes % (auto) 11.4 %; Neutrophils # (auto) 2.45 K/uL (1.40-6.50); Neutrophils % (auto) 53.9 %; Platelet Count 144 K/uL (130-400); RDW Coefficient of Variation 17.1 % (11.5-14.5); RDW Standard Deviation 57.9 fL (36.4-46.3); White Blood Count 4.55 K/ul (4.8-10.8)
[2022-08-30] MEDS: SEVELAMER HCL 800 MG TABLET PO SCH ×3 (07:47→16:45)
[2022-08-30] MEDS: PANCREAZE (LIPASE 10,500U) CAP PO SCH ×3 (07:47→16:45)
[2022-08-30 08:01] LABS: BUN Creatinine Ratio 4.6 (10-20); Calcium 8.8 mg/dl (8.6-10.3); Creatinine Clr Calc Pharmacy 10.4 ml/min; Est GFR (African American) 10.7 ml/min; Est GFR (Non-African American) 9.3 ml/min; Potassium 3.7 mmol/L (3.5-5.1)
[2022-08-30 08:23] LABS: INR 1.8 (0.9-1.1); Partial Thromboplastin Ratio 2.1; Prothrombin Time 19.3 Seconds (9.0-12.0)
[2022-08-30] MEDS: CALCITRIOL 0.25 MCG CAPSULE PO SCH (08:56)
[2022-08-30] MEDS: METOPROLOL TARTRATE 25 MG TAB PO SCH ×2 (08:57→20:10)
[2022-08-30] MEDS: CHOLECALCIFEROL 1,000 UNITS 25 MCG TAB PO SCH (09:00)
--- NOTE | 2022-08-30 11:42 | Nephrology Progress Note ---
Date of Service August 30, 2022 Assessment & Plan (1) ESRD (end stage renal disease): (2) Anemia: (3) Secondary hyperparathyroidism: (4) Hypertension: Plan ESRD, started on hemodialysis on 08/13/22 via right femoral temporary dialysis catheter, temporary catheter was removed on 08/23/2022 and had right IJ tunneled dialysis catheter placed on 08/26/2022. Developed bleeding at the catheter site after started on heparin, bleeding currently stopped and hemoglobin stable. Coumadin was resumed and INR increased to 1.8. Otherwise asymptomatic. Currently mainly waiting for INR to be therapeutic. --Outpatient HD has been set up for [facility] starting at 10:30 am, will plan for HD inpatient tomorrow. -- left arm nephrology precaution, does medications for eGFR less than 10 Will follow Admission and Anticipated Discharge Date Admission Date: August 12, 2022 Kimberly Swenson was seen and examined this morning. He has been feeling well but INR still low at 1.8. Blood pressure well controlled. No active bleeding at the tunneled dialysis catheter site. hemoglobin stable. Review of Systems Review of Systems: Detailed review of system was otherwise unremarkable. Physical Exam Constitutional: WD/WN, vitals as above no acute distress Neck: normal visual inspection rt IJ TDC, no active bleeding. Respiratory: Auscultation: lungs clear to auscultation bilaterally Cardiovascular: Rate/Rhythm: regular rate and regular rhythm Heart Sounds: + murmur Extremities: no edema Skin: no rashes Neurologic: no focal motor deficits Psychiatric: Orientation: alert and oriented x 3 Results & Data Vital Signs (Past 12 Hours) Vital Signs Temp Pulse Pulse Pulse Resp BP BP 08/30/22 09:12 08/30/22 08:06 36.4 C L 89 18 138/68 08/30/22 06:01 68 08/30/22 04:36 36.7 C 85 18 139/63 Pulse Ox O2 Del Method 08/30/22 09:12 Room Air 08/30/22 08:06 95 Room Air 08/30/22 06:01 08/30/22 04:36 97 Room Air PG Care Time/CCT Total # of Minutes Spent Total Time Spent with Patient: Total time spent is greater than 50% in coordination of care (as documented) at patient's floor/unit and/or counseling patient: Coding Level of Care Code 98580 SUB INP/OBS CARE 2/35MIN Diagnoses ESRD (end stage renal disease) N18.6 Anemia D64.9 Secondary hyperparathyroidism N25.81 Hypertension I10
--- NOTE | 2022-08-30 14:23 | Hospitalist Progress Note ---
Date of Service August 30, 2022 Assessment & Plan (1) ANDREA (acute kidney injury): Plan: 77 year old with chronic kidney disease with a hx of renal failure, paroxysmal A Fib and mechanical aortic valve on Coumadin, HTN, HLD, secondary hyperparathyroidism, h/o multiple myeloma, asymptomatic cholelithiasis, and hx of pancreatic cysts who presented with fatigue and weakness. ANDREA superimposed on CKD4, possibly ESRD -Preceding diarrhea. S/p emergent hemodialysis for uremia with HAGMA on 08/13 via R femoral HD catheter -Nephrology following -s/p HD permanent catheter placement 08/26/22 * Continue phosphate and potassium binders * Last HD session 08/28 * HD every Tue, , Paroxysmal atrial fibrillation -Continue home metoprolol at half dosing 25mg PO BID -Resume warfarin, bridge with heparin -Was given extra 5mg Warfarin 08/29 as INR is still subtherapeutic * Continue 2.5mg Daily, with 5mg Mondays Hypocalcemia, improved -Occurred in setting of hyperphosphatemia in setting of severe ANDREA * Continue calcitriol, calcium carbonate and vitamin D supplementation Chronic anticoagulation, s/p aortic mechanical valve -Resume warfarin, bridge with heparin -outpatient INR goal 2.5-3.5 -Goal INR of above 2 prior to d/c, INR= 1.8 today Fever -Patient had temperature of 38.8 C 08/21 -Remains without rise in white count. Patient has been afebrile since then. -No signs of active infection as far as we can tell. Completed antibiotic therapy for UTI -Repeat blood cultures from 08/22 without growth to date UTI (sepsis resolved) -UCx: pansensitive E Coli + enterococcus (tetracycline indeterminant). Ceftriaxone -> Augmentin as of 08/16 -Completed on total course of antibiotics of 10 days on 08/23 Concern for tick borne illness (improved) -Lyme Ab Babesia PCR and tickborne smear negative. Anaplasmosis PCR pending. Empiric doxycycline 08/13 - 08/18 -Clinically improved, afebrile, symptoms resolved Pancytopenia, setting of multiple myeloma Chronic normocytic anemia, baseline Hb 8-9 -No signs of hemolysis on peripheral smear. -S/p Epogen 40,000 units, PRBC x2 units with HD on 08/13. 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 Transfuse Hgb < 7 F/E/N: Renal dialysis diet code: full DVT Prophylaxis: Warfarin with Heparin bridge (2) Permanent central venous catheter in place: (3) Fever: (4) ESRD (end stage renal disease): (5) Paroxysmal A-fib: (6) Anemia: (7) Complicated urinary tract infection: (8) Thrombocytopathia: (9) Chronic kidney disease: Admission and Anticipated Discharge Date Admission Date: August 12, 2022 Supervising Physician Co-Signing Physician Notes ATTESTATION I also saw the patient and completed independent clinical history of his examination. I agree with the impression and plan in the medical student do cumentation, and as summarized below. Upon exam this morning, the patient is without complaints. EXAM 141/79, 67, 18, 36.4, percent room air Alert and oriented. No distress appreciated Heart regular Respirations nonlabored DATA Labs Hemoglobin 9.3, platelet count 144 INR 1.8 Sodium 134, BUN 25, creatinine 5.44 IMPRESSION & PLAN End-stage renal disease Inpatient hemodialysis tomorrow Outpatient hemodialysis set for Tuesday//Tuesday Appreciate nephrology consultation Anemia, stable Hemoglobin remained stable with resumption of warfarin Likely home once INR greater than 2 (Today is his usual 5 mg dose, so no additional dose adjustment) He follows with [facility] outpatient pharmacy for warfarin management Hypertension Reasonable control Additional per medical student documentation as noted above Subjective Today, Mr. Londono was feeling well and is eager to get home. He denied any chest pain or shortness of breath. His INR is at 1.8. Review of Systems Constitutional: Denied fever, night sweats, fatigue, weakness, dizziness Respiratory: Denied cough or shortness of breath. Cardiovascular: Additional Comments: Denied chest pain, palpitations Gastrointestinal: Denied nausea, vomiting, diarrhea, abdominal pain. Genitourinary: no dysuria, no difficulty urinating or no urinary frequency Physical Exam Constitutional: Alert and oriented x3 in hopsital bed Neck: Respiratory: CTA, no increased work of breathing Cardiovascular: Normal rate and regular rhythm. S1S2 mechanical valve click.. Radial pulses equal b/l. Capillary refill less than 2 sec. Gastrointestinal (Abdomen): Nondistended, nontender, normoactive bowel sounds. Skin: Warm dry, no apparent rashed. Psychiatric: Appropriate mood and affect. Results & Data Results & Data Vital Signs (Past 12 Hours) Vital Signs Temp Pulse Pulse Pulse Resp BP BP 08/30/22 12:04 36.3 C L 64 18 141/79 H 08/30/22 09:12 08/30/22 08:06 36.4 C L 89 18 138/68 08/30/22 06:01 68 08/30/22 04:36 36.7 C 85 18 139/63 Pulse Ox O2 Del Method 08/30/22 12:04 100 Room Air 08/30/22 09:12 Room Air 08/30/22 08:06 95 Room Air 08/30/22 06:01 08/30/22 04:36 97 Room Air
[2022-08-30] MEDS: WARFARIN SOD 5 MG TAB PO SCH (15:57)
[2022-08-30] MEDS: HEPARIN SODIUM/DEXTROSE 25,000 UNITS/500 ML BAG IV SCH (15:58)
[2022-08-30] MEDS: TAMSULOSIN HCL 0.4 MG CAP PO SCH (20:10)
[2022-08-31] MEDS: CHOLECALCIFEROL 1,000 UNITS 25 MCG TAB PO SCH (07:29)
[2022-08-31] MEDS: PANCREAZE (LIPASE 10,500U) CAP PO SCH ×2 (07:29→12:27)
[2022-08-31] MEDS: SEVELAMER HCL 800 MG TABLET PO SCH ×2 (07:29→12:27)
[2022-08-31] MEDS: CALCITRIOL 0.25 MCG CAPSULE PO SCH (07:29)
[2022-08-31] MEDS: METOPROLOL TARTRATE 25 MG TAB PO SCH (07:30)
[2022-08-31] MEDS: ONDANSETRON INJ 2 MG/ML 2 ML VIAL IV PRN (07:38)
[2022-08-31 08:08] LABS: INR 2.3 (0.9-1.1); Partial Thromboplastin Ratio 2.4
[2022-08-31 08:28] LABS: Partial Thromboplastin Time 68.8 Seconds (21.0-31.0)
--- NOTE | 2022-08-31 10:39 | Nephrology Progress Note ---
Date of Service August 31, 2022 Assessment & Plan (1) ESRD (end stage renal disease): (2) Anemia: (3) Secondary hyperparathyroidism: (4) Hypertension: Plan ESRD, started on hemodialysis on 08/13/22 via right femoral temporary dialysis catheter, temporary catheter was removed on 08/23/2022 and had right IJ tunneled dialysis catheter placed on 08/26/2022. Developed bleeding at the catheter site after started on heparin, bleeding currently stopped and hemoglobin stable. Coumadin was resumed and INR increased to 1.8. Otherwise asymptomatic. Tolerating dialysis. -- Outpatient HD has been set up for [facility] starting at 10:30 am, waiting for discharge soon as INR currently therapeutic at 2.3 -- left arm nephrology precaution, does medications for eGFR less than 10 Will follow Admission and Anticipated Discharge Date Admission Date: August 12, 2022 Kimberly Swenson was seen and examined during dialysis this morning. He has been feeling well and tolerating dialysis. Blood pressure acceptable. Weight gain fair in between treatment. Denies shortness of breath, chest pain, leg cramps, dizziness or lightheadedness. INR improved to 2.3 this morning. No active bleeding at the tunneled dialysis catheter site. hemoglobin stable. Review of Systems Review of Systems: Detailed review of system was otherwise unremarkable. Physical Exam Constitutional: WD/WN, vitals as above no acute distress Neck: normal visual inspection rt IJ TDC, no active bleeding. Respiratory: Auscultation: lungs clear to auscultation bilaterally Cardiovascular: Rate/Rhythm: regular rate and regular rhythm Heart Sounds: + murmur Extremities: no edema Skin: no rashes Neurologic: no focal motor deficits Psychiatric: Orientation: alert and oriented x 3 Results & Data Vital Signs (Past 12 Hours) Vital Signs Temp Pulse Pulse Pulse Resp BP BP 08/31/22 10:00 61 112/56 L 08/31/22 09:30 59 L 116/71 08/31/22 09:00 66 120/62 08/31/22 08:30 81 103/67 08/31/22 08:00 82 146/76 H 08/31/22 07:54 36.7 C 65 08/31/22 07:44 08/31/22 07:37 36.8 C 87 16 139/71 08/31/22 06:02 82 07/11/23 04:00 36.7 C 77 20 08/31/22 00:00 80 08/30/22 23:24 36.6 C 78 20 BP Pulse Ox O2 Del Method 08/31/22 10:00 08/31/22 09:30 08/31/22 09:00 08/31/22 08:30 08/31/22 08:00 08/31/22 07:54 08/31/22 07:44 Room Air 08/31/22 07:37 96 Room Air 08/31/22 06:02 08/31/22 04:00 139/68 99 Room Air 08/31/22 00:00 08/30/22 23:24 164/70 H 100 Room Air PG Care Time/CCT Total # of Minutes Spent Total Time Spent with Patient: Total time spent is greater than 50% in coordination of care (as documented) at patient's floor/unit and/or counseling patient: Coding Level of Care Code 06827 SUB INP/OBS CARE 2/35MIN Diagnoses ESRD (end stage renal disease) N18.6 Anemia D64.9 Secondary hyperparathyroidism N25.81 Hypertension I10
--- NOTE | 2022-08-31 15:55 | Discharge Summary ---
Date of Service August 31, 2022 Admission HPI Per Admitting Provider Messi Londono is a 77 year old with an extensive past medical history of chronic kidney disease with a hx of renal failure, paroxysmal A Fib on coumadin, hx of AVR, HTN, HLD, secondary hyperparathyroidism, h/o multiple myeloma, asymptomatic cholelithiasis, and hx of pancreatic cysts s/p EUS in June who presented to the ER today complaining of extreme fatigue and weakness. He has had progressive fatigue, weakness and myalgias in neck and back for the past 2 weeks. He denies any chest pain, SOB, Cough, fever, chills, congestion, abdominal pain, nausea, vomiting, hematochezia, melena, BRB MT. He went to the nephrology office today to have his Chandler exchanged but states he was unable to get it exchanged due to the doctor not in the office. Patient was evaluated and found to have worsening renal functions, BUN 158, Cr 12.5, Bicarb is low at 8, Hgb 7.9 (baseline 8-10) procal slightly elevated at 0.7, urine possibly contaminated vs UTI, await C&S, lactate normal, troponin mildly elevated. Magnesium low at 1. Patient had iron studies in April with iron low a 30, TIBC 150, ferritin 457, % saturation 20. Patient had EGD and EUS in June with a FN aspiration of the pancreatic cyst in the uncinate process with no malignancy. He had a hx of chronic diarrhea but this resolved with Creon and 1-2 x per week of taking Imodium. Patient refused a colonoscopy in the past. He also has a hx of an elevated PSA of 11.99 in June. PTH in June was 373 (894 in Mar) Patient had a CXR, EKG in ER and was given Cefepime and Vancomycin Admission Exam Per Admitting Provider Constitutional: + ill appearing, + cachectic and + frail appearing Neck: trachea midline, no thyromegaly Respiratory: able to speak in complete sentences; no respiratory distress and no labored breathing Auscultation: + diminished lung sounds; no crackles, no rales and no rhonchi Cardiovascular: Rate/Rhythm: regular rate and regular rhythm artificial valve click on auscultation Chest (Breasts): Additional Comments: port right chest Gastrointestinal (Abdomen): normal bowel sounds, soft, nontender, no hepatosplenomegaly Psychiatric: A+Ox3, euthymic affect Principal Diagnosis End stage renal disease. Discharge Exam Constitutional WD/WN, vitals as above Eyes PERRL, conjunctivae normal, anicteric sclerae Respiratory normal respiratory effort, lungs clear to auscultation Cardiovascular RRR, no murmur, no edema Gastrointestinal (Abdomen) normal bowel sounds, soft, nontender, no hepatosplenomegaly Psychiatric A+Ox3, euthymic affect Discharge Data Allergies Allergy/AdvReac Type Severity Reaction Status Date / Time ASHLEY Inhibitors AdvReac Intermediate COUGH Verified 08/12/22 16:47 acetic acid AdvReac Intermediate Swelling Verified 08/12/22 16:47 of Lip/Tongue/Throat Consultations 08/12/22 20:25 Consult Nephrology Routine 08/13/22 18:13 Consult Oncology Routine Procedures Performed Operation Date: 08/26/22 08:15 Actual Procedures p Insertion of Perm Catheter, Right Internal Jugular Approach, Ultrasound Localization of Right Interanl Jugular vein, Fluoroscopy for Positioning(Right) - Ben Delgado, DO Ordered Studies 08/12/22 20:25 US Renal Bladder [US renal/blad retro comp] Routine IMPRESSION: 1. No hydronephrosis. 2. Increased renal echogenicity, similar to ultrasound of April 23, 2022. 08/13/22 15:43 US point of care ultrasound Urgent 08/26/22 07:34 EV cvc insrt tunnel wo prt/secondary school registrar Routine Hospital Course (1) ANDREA (acute kidney injury): 77 year old with chronic kidney disease with a hx of renal failure, paroxysmal A Fib and mechanical aortic valve on Coumadin, HTN, HLD, secondary hyperparathyroidism, h/o multiple myeloma, asymptomatic cholelithiasis, and hx of pancreatic cysts who presented with fatigue and weakness. ANDREA superimposed on CKD4, possibly ESRD -Preceding diarrhea. S/p emergent hemodialysis for uremia with HAGMA on 08/13 via R femoral HD catheter -Nephrology following -s/p HD permanent catheter placement 08/26/22 -On phosphate and potassium binders - Last HD session 08/31 - Patient will follow up with nephrology outpatient and continue hemodialysis Tuesday, , Tuesday - Stopped Furosemide 80mg daily and potassium supplement due to HD. Can revisit outpatient if necessary. Fever -Patient had temperature of 38.8 C 08/21 -Remains without rise in white count. Patient has been afebrile since then. -No signs of active infection as far as we can tell. Completed antibiotic therapy for UTI -Repeat blood cultures from 08/22 without growth to date UTI (sepsis resolved) -UCx: pansensitive E Coli + enterococcus (tetracycline indeterminant). Ceftriaxone -> Augmentin as of 08/16 -Completed on total course of antibiotics of 10 days on 08/23 Concern for tick borne illness -Lyme Ab Babesia PCR and tickborne smear negative. Anaplasmosis PCR pending. Empiric doxycycline 08/13 - 08/18 -Clinically improved, afebrile, symptoms resolved Paroxysmal atrial fibrillation -Continue home metoprolol at half dosing 25mg PO BID -Resume warfarin, bridge with heparin - Was given extra 5mg Warfarin 08/29 -INR 2.3 on 08/31 day of discharge. -Follow up outpatient, recommended repeat or Tuesday. Told patient to take 2.5mg daily on discharge. Hypocalcemia, improved -Occurred in setting of hyperphosphatemia in setting of severe ANDREA -Continue calcitriol, calcium carbonate and vitamin D supplementation Pancytopenia, setting of multiple myeloma Chronic normocytic anemia, baseline Hb 8-9 -No signs of hemolysis on peripheral smear. -S/p Epogen 40,000 units, PRBC x2 units with HD on 08/13. 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 (2) Permanent central venous catheter in place: (3) Fever: (4) ESRD (end stage renal disease): (5) Paroxysmal A-fib: (6) Anemia: (7) Complicated urinary tract infection: (8) Thrombocytopathia: (9) Chronic kidney disease: Total Time Total Time Spent Total Time Spent (In Minutes): Please see attending attestation. Discharge Plan Discharge Items Patient Disposition: Home - Home Health Services Reason For Visit: ACUTE UREMIA, ANEMIA, HYPOMAGNESIA Discharge Diagnosis: ESRD Activity: Per Instructions section Non-emergency contact: Primary Care Provider and [facility] Call non-emergency contact if: your symptoms worsen, your pain is worsening and your temperature is above 101 Follow-up/Referrals: Doug Franklin MD [Primary Care Provider] - 09/08/22 10:45 am Diet: Regular Addtl Attending Provider Instructions: A discharge summary will be sent to your primary care physician to ensure continuity of care. You were seen in the hospital for worsening kidney function. Throughout your stay you were transitioned onto hemodialysis and with a catheter placement for the dialysis sessions. You are currently set up for dialysis Tuesdays, , Saturdays with [facility]. You will follow up with Nephrology outpatient for continued management of your end stage renal disease and hemodialysis. We made sure your INR was trending in the right direction before discharging you. Your INR on day of discharge was 2.3. Please get a follow up INR level outpatient on or Tuesday. Follow-up: * You should be seen by your primary physician within the next week. * You should be seen by your steel construction worker within the next week. * You are scheduled for dialysis Tuesdays, , and Saturdays. Medications: Your medication list has been reviewed and reconciled upon discharge to ensure accuracy and continuity of care. An updated list of all your medications is included with your hospital discharge paperwork. Please review this list closely, and make note of any changes. * Your furosemide (Lasix) and potassium supplements were held due to dialysis. Please consult with your steel construction worker if you should resume the diuretic at any dosage. Take your medications as instructed; do not skip a dose of your medicines. Make sure all of your doctors know every medicine you are taking (including kumz-nhz-bivqdft medicines, vitamins, and supplements). let your primary care provider know before taking any new medicines because some of these may in teract with your current medications, or may make your symptoms worse. CONTACT YOUR PRIMARY CARE PROVIDER if you experience any of the following: * Fevers or shaking chills * Shortness of breath not relieved by inhalers, fainting * Sudden abdominal distension not relieved by catheterization. * Difficulty following your treatment plan, or difficulty taking medications CALL 911 OR GO TO THE EMERGENCY DEPARTMENT if you experience any of the following: * Sudden, severe abdominal pain or nausea/vomiting * Severe chest pain, or chest pain that radiates (moves) to your jaw or arm * Sudden, severe shortness of breath or difficulty breathing It was was our pleasure taking care of you here at [facility] . Thank you for allowing us to participate in your care. Pending Studies at Discharge: No Stand-Alone Forms: My [facility], Smoking Cessation Medications and DC Order Prescriptions: Continued simvastatin 20 mg tablet 20 mg PO DAILY Qty: 90 3RF metoprolol tartrate 50 mg tablet 50 mg PO BID Qty: 60 5RF tamsulosin 0.4 mg capsule 0.4 mg PO HS Qty: 30 1RF calcitriol 0.25 mcg capsule 0.25 mcg PO DAILY Qty: 30 5RF warfarin 5 mg tablet 5 mg PO .COMPLEX Qty: 30 1RF Rx Instructions: TAKES 5 MG ON MONDAYS ONLY, THEN 2.5 MG ALL OTHER DAYS. Creon 36,000-114,000- 180,000 unit capsule,delayed release(DR/EC) 1 cap PO TIDM Qty: 90 3RF cholecalciferol (vitamin D3) 25 mcg (1,000 unit) Capsule 2,000 unit PO QAM Qty: 30 0RF Rx Instructions: PER PT'S FAMILY "WAS ONLY GIVING HIM 1 TAB DAILY". sodium bicarbonate 650 mg Tablet 1,300 mg PO BID Qty: 60 0RF Discontinued loperamide 2 mg capsule 2 mg PO Q3H PRN (Reason: loose stool) Qty: 30 0RF potassium chloride 20 mEq packet 20 meq PO DAILY Qty: 30 5RF furosemide 80 mg tablet 80 mg PO BID Rx Instructions: PER PT'S FAMILY Discharge Orders: Discharge Order (Routine); Ordered 08/31/22 Ordered By: Francisco Bowens/Other Patient Handouts: Hemodialysis Admission Data Admit Date/Time: 08/12/22 18:36 Attending Provider: Donato Maldonado Admit Provider: Cherie Vincent Primary Care Provider: Doug Franklin Other Providers: Cherie Vincent ; Dylon Contreras ; [place] ; Brett Zhang ; Taryn Giraldo ; Jennifer Ibrahim ; Armando Kraus ; Fouzia Shi ; Gaye Forte ; Kory Hyman ; Pardeep Carbajal ; Gauri Arzola ; Minesh,No Attending Other Interventions: Discharge Summary Assessment (RN) Last Done: 08/31/22 16:07 Supervising Physician Co-Signing Physician Notes ATTESTATION I also saw the patient and completed independent clinical history of his examination. I agree with the impression and plan in the resident documentation, and as summarized below. Upon our afternoon exam, the patient is without complaints. He is anxious for discharge. Fortunately, his INR is up to 2.3. He has been on Coumadin for quite some time so he understands the day-to-day variability and the need for repeated blood work. He is followed by the [facility] Coumadin clinic which is fairly close to his house, so will be easy for him to have a recheck on or Tuesday of this week. EXAM 141/79, 67, 18, 36.4, percent room air 139/68, 90, 16, 36.3, 96% on room air alert and oriented. No distress appreciated Heart regular Respirations nonlabored DATA Labs INR 2.3 IMPRESSION & PLAN End-stage renal disease Outpatient hemodialysis set for Tuesday//Tuesday Appreciate nephrology consultation Anemia, stable Hemoglobin remained stable with resumption of warfarin He follows with [facility] outpatient pharmacy for warfarin management; he will connect with the Coumadin clinic after discharge, likely will need repeat INR or Tuesday of this week. Continue warfarin 2.5 mg nightly Additional per resident documentation as noted above Resident Activity Tracking Resident Involvement: Resident Care Provided Care Provided: Adult [facility] Medicine
[2022-08-31] MEDS: WARFARIN SOD 2.5 MG TAB PO SCH (16:02)
[2022-08-31 16:32] LABS: Partial Thromboplastin Ratio 1.6
== END 2022-08-31 17:45 | disposition home health service (06) | DRG 698 ==
LOC: ED 14:04 → SUATTDRO 18:36 → 2W 18:36 → 2S 23:11 → 1E 08-13 16:40 → 2W 08-14 14:55

== ENCOUNTER 2023-04-01 10:48 | Inpatient (IN) ==
[2023-04-01] MEDS ORDERED: VANCOMYCIN CONSULT ACTIVE PRN (11:27)
--- NOTE | 2023-04-01 11:33 | Emergency Department Note ---
Impression & Plan Pneumonia, Pulmonary edema, Elevated INR, Hypoxia ED Provider Note NAME: HIRAM BEAL AGE: 78 SEX: M : 1945 ARRIVES VIA: Ambulance INFORMANT: Patient, ED PROVIDER(S): Doug Foley DO CHIEF COMPLAINT: Difficulty breathing HPI: The patient is a 78-year-old male who presented to the emergency department for an evaluation of difficulty breathing. The patient last had dialysis on Tuesday. Ever since that time he has not felt well. He was noted to have a fever 102.9 and coughing over the last 24 hours. His significant other tried to get him to come to the emergency department last evening but he refused and came today by ambulance. There is been no recent falls but the patient's had some confusion. He denies having any nausea vomiting or diarrhea. He denies having any chest pain. ROS: See above HPI for pertinent positives & negatives. A total of 10 systems reviewed and were otherwise negative. PAST MEDICAL HISTORY: See Below PAST SURGICAL HISTORY: See Below FAMILY HISTORY: See Below SOCIAL HISTORY: See Below HOME MEDICATIONS: See Below ALLERGIES: See Below VITALS: See Below PHYSICAL EXAMINATION: GENERAL: The patient is awake but somewhat listless. He does follow commands slowly. EYES: The conjunctivae are clear. The pupils are round and reactive. EARS, NOSE, MOUTH AND THROAT: The nose is without any evidence of any deformity. Mucous membranes are dry. NECK: The neck is nontender and supple. RESPIRATORY: Diminished breath sounds are noted at the right base. There were scattered rales noted throughout. There is conversational dyspnea appreciated. CARDIOVASCULAR: Regular rate and rhythm noted there no murmurs rubs or gallops normal S1 normal S2. GASTROINTESTINAL: The abdomen is soft. Abdomen is nontender. MUSCULOSKELETAL/EXTREMITIES: There is no evidence of gross deformity full range of motion is noted in the hips and shoulders. SKIN: Dialysis fistula was noted in the left upper extremity. There is a palpable thrill and a bruit noted to auscultation. There is a dialysis indwelling catheter in the right chest wall. NEUROLOGIC: Patient is awake and oriented x 3. Strength is symmetric but diminished MEDICAL DECISION MAKING: The patient is a 78-year-old male who presented to the emergency department for an evaluation of difficulty breathing. The patient was noted to have a fever as well as difficulty breathing. He does have a history of renal failure and last received dialysis earlier in the week. The patient was found have signs of pneumonia on chest x-ray. He also has some superimposed pulmonary edema. He was treated with IV antibiotics in the emergency department. He was placed on supplemental oxygen. He was reevaluated multiple times. I discussed the patient's laboratory and radiographic studies with him. I also discussed his condition with the on-call [facility]. They have agreed to evaluate the patient in the emergency department for further management and disposition. Triage Nursing notes reviewed. Prior medical records reviewed Vital Signs: reviewed and remarkable for hypoxia. Differential diagnosis: Reactive airway disease, pneumonia, pneumothorax, COPD, CHF, infections, cardiac ischemia, pulmonary embolism, musculoskeletal, gastrointestinal, as well as other pathologies. ER treatment provided: See below Diagnostics interpreted by me: ECG: EKG was obtained in the emergency department. My interpretation is sinus rhythm at 81 bpm. LVH was noted by voltage criteria. There is diffuse ST depressions noted. This was compared to a tracing from August 12, 2022. No changes were noted Cardiac Monitoring: An order was placed for continuous cardiac monitoring. The monitor shows a rate of 79 bpm with sinus rhythm. Laboratory studies: As stated above and show below. Imaging studies: See below. Radiographic imaging was reviewed by myself Consultation(s): I discussed this case with Dr. Colindres who is on-call for the [facility] group. ED COURSE: Procedures: none Critical Care: I have personally spent greater than 45 minutes of critical care time in the direct management of this patient. This includes bedside care, interpretation of diagnostic studies, and testing, discussion with consultants, patient, and family members, and other required patient management activities. This 45 minutes is in excess of all separately billable procedures. Past Med/Surg History Medical History Indwelling Chandler catheter present Hemodialysis patient Tuesday//Tuesday [facility]. Depression Anxiety Chronic anticoagulation Paroxysmal atrial fibrillation managed with medication. no cardioversion. follows with Jm Mcgill ESRD (end stage renal disease) Thrombocytopathia Hypocalcemia Chronic kidney disease Pancreatic lesion (benign) Hypokalemia Secondary hyperparathyroidism Diarrhea chronic Multiple myeloma dx 2013, treated with a stem cell transplant and chemotherapy. last chemo treatment in 2013. currently in remission. Hypertension Dyslipidemia Anemia Surgical History History of cystoscopy History of ERCP pancreatic biopsy History of colonoscopy History of tonsillectomy Permanent central venous catheter in place (08/26/22) Insertion of Perm Catheter, Right Internal Jugular Approach, Ultrasound Localization of Right Interanl Jugular vein, Fluoroscopy for Positioning(Right) - Ben Delgado DO H/O stem cell transplant S/P AVR (aortic valve replacement) (~1995) with repair of the AAA that was incidentally found. 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 [employer] Feels Safe at Home: Yes Childhood Exposure to Second-Hand Smoke: No Diet: low salt Dental Care, Regularly: Yes Physical Activity Frequency: 1-2 Times per Week Physical Activity Frequency Comment: walk Seatbelt Use: always Sunscreen Use: Yes Assistive Devices: None Allergies Allergies Allergy/AdvReac Type Severity Reaction Status Date / Time ASHLEY Inhibitors AdvReac Intermediate COUGH Verified 01/17/23 11:48 acetic acid AdvReac Intermediate Vinegar - Verified 01/17/23 11:48 Swelling of Lip/Tongue/Throat Home Meds Home Medications Medication Instructions Recorded Confirmed calcitriol 0.25 mcg capsule 0.25 mcg PO QAM 11/15/22 01/17/23 cholecalciferol (vitamin D3) 50 50 mcg PO BID 11/15/22 01/17/23 mcg (2,000 unit) capsule (Vitamin D3) sevelamer carbonate 800 mg tablet 800 mg PO TIDM 11/15/22 01/17/23 simvastatin 20 mg tablet 20 mg PO HS 11/15/22 01/17/23 warfarin 5 mg tablet 2.5 mg PO DAILY 11/15/22 01/17/23 vit B complx, C-iron 8 mg-folic 1 tab PO DAILY 01/01/23 01/17/23 acid 800 mcg-D3 1,000 unit-zinc tablet (ProRenal) Previous Rx's Medication Instructions Recorded metoprolol tartrate 50 mg tablet 50 mg PO BID #60 tabs 09/30/22 snksjv-ocrrmspt-[id number] 1 cap PO TIDM #90 caps 01/07/23 36,000-114,000-180,000 unit capsule,delay rel (Creon) loperamide 2 mg capsule 2 mg PO Q3H PRN loose stool #30 01/07/23 caps tamsulosin 0.4 mg capsule 0.4 mg PO HS #30 caps 03/01/23 alprazolam 0.25 mg tablet (Xanax) 0.25 mg PO .COMPLEX #30 tabs 03/31/23 Results & Data (ED) Vital Signs Vital Signs - 24 hr 04/01/23 10:57 04/01/23 10:57 04/01/23 11:01 Temperature 37.9 C H Temperature Source Oral Pulse Rate 88 Pulse Rate [Apical] Respiratory Rate 22 Respiratory Effort / Characteristics Non-Labored Respiratory Depth Normal Blood Pressure 125/61 Blood Pressure [Right Arm] Blood Pressure Mean 82 Blood Pressure Mean [Right Arm] Pulse Oximetry 98 83 L 84 L Oxygen Delivery Method Nasal Cannula Nasal Cannula Room Air Oxygen Flow Rate 4 0 Sepsis Recent Fever Within 48 Hours Yes Sepsis New/Unexplained Change in Mental Status N/A Sepsis Action Taken by Nursing No Action Required Oxygen Flow Rate - Titration 4 Pulse Oximetry Post Tiitration 98 04/01/23 11:11 04/01/23 11:12 04/01/23 12:00 Temperature Temperature Source Pulse Rate 82 Pulse Rate [Apical] 79 Respiratory Rate 20 Respiratory Effort / Characteristics Respiratory Depth Blood Pressure Blood Pressure [Right Arm] 122/60 Blood Pressure Mean Blood Pressure Mean [Right Arm] 80 Pulse Oximetry 98 98 Oxygen Delivery Method Nasal Cannula Nasal Cannula Oxygen Flow Rate 4 4 Sepsis Recent Fever Within 48 Hours Sepsis New/Unexplained Change in Mental Status Sepsis Action Taken by Nursing Oxygen Flow Rate - Titration Pulse Oximetry Post Tiitration 04/01/23 12:38 Temperature Temperature Source Pulse Rate Pulse Rate [Apical] 79 Respiratory Rate 18 Respiratory Effort / Characteristics Respiratory Depth Blood Pressure Blood Pressure [Right Arm] 120/66 Blood Pressure Mean Blood Pressure Mean [Right Arm] 84 Pulse Oximetry 97 Oxygen Delivery Method Oxygen Flow Rate Sepsis Recent Fever Within 48 Hours Sepsis New/Unexplained Change in Mental Status Sepsis Action Taken by Nursing Oxygen Flow Rate - Titration Pulse Oximetry Post Tiitration Home Medications Current Medication List: was personally reviewed by me Laboratory Data Attestation: I reviewed the patient's lab results. 04/01/23 11:02 04/01/23 11:02 Lab Results 04/01/23 04/01/23 04/01/23 Range/Units 11:02 11:32 12:47 WBC 6.25 (4.8-10.8) K/ul RBC 3.26 L (4.70-6.10) M/uL Hgb 10.0 L (14.0-18.0) g/dl Hct 29.8 L (42.0-52.0) % MCV 91.4 (80.0-100.0) fL MCH 30.7 (25.0-34.0) pg MCHC 33.6 (32.0-36.0) g/dL RDW Std Deviation 55.2 H (36.4-46.3) fL RDW Coeff of Berto 16.3 H (11.5-14.5) % Plt Count 35 L (130-400) K/uL Neutrophils % (Manual) 89 % Lymphocytes % (Manual) 7 % Monocytes % (Manual) 3 % Plasma Cell % (Manual) 1 % Neutrophils # (Manual) 5.56 (1.40-6.50) K/uL Total Absolute Neuts 5.56 (1.4-6.5) K/uL Lymphocytes # (Manual) 0.44 L (1.2-3.4) K/uL Total Abs Lymphocytes 0.50 L (1.2-3.4) K/uL Monocytes # (Manual) 0.19 (0.11-0.59) K/uL Plasma Cell # (Manual) 0.06 H (0-0) K/uL Toxic Vacuolation 2+ Polychromasia 1+ Tear Drop Cells 1+ Ovalocytes 1+ PT 89.6 H (9.0-12.0) Seconds INR 9.4 H* (0.9-1.1) APTT 55 H (21-31) Seconds PTT Ratio 2.0 VBG pH 7.48 H (7.36-7.41) VBG pCO2 31 L (38-50) mmHg VBG pO2 64 mmHg VBG HCO3 23 mmol/L VBG O2 Saturation 94.8 % VBG Base Excess 0 mEq/L Sodium 136 (136-145) mmol/L Potassium 4.0 (3.5-5.1) mmol/L Chloride 100 (98-107) mmol/L Carbon Dioxide 24 (21-32) mmol/L Anion Gap 12 H (3-11) BUN 63 H (6-23) mg/dl Creatinine 8.46 H* (0.6-1.4) mg/dl Est Cr Clr Drug Dosing 6.6 ml/min Est GFR ( Amer) 6.2 ml/min Est GFR (Non-Af Amer) 5.4 ml/min BUN/Creatinine Ratio 7.4 L (10-20) Glucose 162 H (70-99(Fasting)) mg/dl Lactate 1.5 (0.4-2.0) mmol/L Calcium 9.1 (8.6-10.3) mg/dl Magnesium 2.0 (1.7-2.4) mg/dl Total Bilirubin 1.3 H (0.2-1.0) mg/dl Direct Bilirubin 0.4 H (0-0.2) mg/dl AST 26 (13-39) U/L ALT 19 (7-52) U/L Alkaline Phosphatase 71 (34-104) U/L Troponin I High Sens 44.0 H 45.4 H (0-20) pg/ml Total Protein 6.8 (6.0-8.3) gm/dl Albumin 3.6 (3.4-5.0) gm/dl Procalcitonin 2.84 H (0-0.5) ng/ml Adenovirus (PCR) Not Detected (NotDetected) B. pertussis DNA (PCR) Not Detected (NotDetected) B.parapertussis DNA PCR Not Detected (NotDetected) C. pneumoniae DNA (PCR) Not Detected (NotDetected) Coronavirus OC43 (PCR) Not Detected (NotDetected) Coronavirus HKU1 (PCR) Not Detected (NotDetected) Coronavirus 229E (PCR) Not Detected (NotDetected) SARS-CoV-2 (PCR) Not Detected (NotDetected) Coronavirus NL63 (PCR) Not Detected (NotDetected) Human Metapneumovir PCR Not Detected (NotDetected) Influenza Type A (PCR) Not Detected (NotDetected) Influenza Type B (PCR) Not Detected (NotDetected) M. pneumoniae (PCR) Not Detected (NotDetected) Parainfluenza 1 (PCR) Not Detected (NotDetected) Parainfluenza 2 (PCR) Not Detected (NotDetected) Parainfluenza 3 (PCR) Not Detected (NotDetected) Parainfluenza 4 (PCR) Not Detected (NotDetected) RSV (PCR) Not Detected (NotDetected) Entero/Rhino (PCR) Not Detected (NotDetected) Administered Medications Vancomycin HCl 1,250 mg/ (Sodium Chloride) 525 mls @ 200 mls/hr IV NOW ONE Stop: 04/01/23 14:04 Last Admin: 04/01/23 12:06 Dose: 200 mls/hr Documented By: YE Discontinued Medications Cefepime HCl (Maxipime) 2,000 mg in 20 mls @ 5 mls/min IV NOW STA; Protocol Stop: 04/01/23 11:30 Last Admin: 04/01/23 11:48 Dose: 5 mls/min Documented By: YE Imaging Data Attestation: I personally reviewed and interpreted this imaging study as follows: My Impression: 1 view chest x-ray was obtained in the emergency department. My interpretation is pulmonary edema with cardiomegaly and pneumonia at the right base, final report below Radiologist's Impression: Chest X-Ray 04/01/23 11:06 XR chest 1V portable HISTORY: 78 years-old Male Sepsis acute sepsis COMPARISON: 08/26/2022 TECHNIQUE: AP view of the chest FINDINGS: Cardiac silhouette is enlarged. Median sternotomy. Right IJ Eoydzf-k-Rzon catheter and double lumen hemodialysis catheters appear to be in similar positioning. No pneumothorax. Layering pleural effusions with bibasilar consolidation. Pulmonary vascular congestion with interstitial coarsening. Healed chronic left-sided rib fracture. Degenerative changes of the shoulders and spine. IMPRESSION: 1. Cardiomegaly with pulmonary edema. 2. Layering pleural effusions with bibasilar consolidation which may represent atelectasis versus pneumonia. ACT 112: Negative or not required by law. The above report was generated using voice recognition software. It may contain grammatical, syntax or spelling errors. Electronically signed by: Archie Moore M.D. 04/01/2023 11:33 AM Discharge Plan Visit Data Chief Complaint: Illness ED Provider: Doug Foley Discharge Problem: Pneumonia, Pulmonary edema, Elevated INR, Hypoxia Patient Disposition: Being Evaluated by Hospitalist Forms Stand Alone Forms: My [facility] Prescriptions Prescriptions: No Action metoprolol tartrate 50 mg tablet 50 mg PO BID Qty: 60 5RF Rx Instructions: hold AM dose on HD days Tuesday, , Tuesday. loperamide 2 mg capsule 2 mg PO Q3H PRN (Reason: loose stool) Qty: 30 5RF Creon 36,000-114,000- 180,000 unit capsule,delayed release(DR/EC) 1 cap PO TIDM Qty: 90 3RF tamsulosin 0.4 mg capsule 0.4 mg PO HS Qty: 30 1RF alprazolam [Xanax] 0.25 mg tablet 0.25 mg PO .COMPLEX Qty: 30 0RF Rx Instructions: 0.25 mg orally prior to hemodialysis; sevelamer carbonate 800 mg Tablet 800 mg PO TIDM Rx Instructions: must administer with a meal/food cholecalciferol (vitamin D3) [Vitamin D3] 50 mcg (2,000 unit) Capsule 50 mcg PO BID simvastatin 20 mg tablet 20 mg PO HS warfarin 5 mg tablet 2.5 mg PO DAILY calcitriol 0.25 mcg capsule 0.25 mcg PO QAM ProRenal 8 mg iron-800 mcg-1,000 unit tablet 1 tab PO DAILY Referrals Referrals: Doug Franklin MD [Primary Care Provider] - Discharge Problem: Pneumonia Qualifiers: Pneumonia type: due to unspecified organism Laterality: unspecified laterality Lung location: unspecified part of lung Qualified Code(s): J18.9 - Pneumonia, unspecified organism Pulmonary edema Qualifiers: Chronicity: acute Qualified Code(s): J81.0 - Acute pulmonary edema
--- NOTE | 2023-04-01 11:34 | XRay Report ---
XR chest 1V portable HISTORY: 78 years-old Male Sepsis acute sepsis COMPARISON: 08/26/2022 TECHNIQUE: AP view of the chest FINDINGS: Cardiac silhouette is enlarged. Median sternotomy. Right IJ Gasnut-h-Ivlf catheter and double lumen h emodialysis catheters appear to be in similar positioning. No pneumothorax. Layering pleural effusion s with bibasilar consolidation. Pulmonary vascular congestion with interstitial coarsening. Healed ch ronic left-sided rib fracture. Degenerative changes of the shoulders and spine. IMPRESSION: 1. Cardiomegaly with pulmonary edema. 2. Layering pleural effusions with bibasilar consolidation which may represent atelectasis versus pne umonia. ACT 112: Negative or not required by law. The above report was generated using voice recognition software. It may contain grammatical, syntax o r spelling errors. Electronically signed by: Archie Moore M.D. 04/01/2023 11:33 AM
[2023-04-01 11:45] LABS: Base Excess VBG 0 mEq/L; HCO3 VBG 23 mmol/L; Oxygen Saturation VBG 94.8 %; PCO2 VBG 31 mmHg (38-50); PO2 VBG 64 mmHg; pH VBG 7.48 (7.36-7.41)
[2023-04-01] MEDS: CEFEPIME 2,000 MG/20 ML VIAL IV STA (11:48)
[2023-04-01 11:50] LABS: Albumin Level 3.6 gm/dl (3.4-5.0); BUN Creatinine Ratio 7.4 (10-20); Bilirubin Direct 0.4 mg/dl (0-0.2); Bilirubin,Total 1.3 mg/dl (0.2-1.0); Calcium 9.1 mg/dl (8.6-10.3); Creatinine Clr Calc Pharmacy 6.6 ml/min; Est GFR (African American) 6.2 ml/min; Est GFR (Non-African American) 5.4 ml/min; Total Protein 6.8 gm/dl (6.0-8.3)
[2023-04-01 11:57] LABS: Hematocrit (blood only) 29.8 % (42.0-52.0); Mean Corpuscular Hemoglobin 30.7 pg (25.0-34.0); Mean Corpuscular Hgb Conc 33.6 g/dL (32.0-36.0); Mean Corpuscular Volume 91.4 fL (80.0-100.0); Platelet Count 35 K/uL (130-400); RDW Coefficient of Variation 16.3 % (11.5-14.5); RDW Standard Deviation 55.2 fL (36.4-46.3); Red Blood Count 3.26 M/uL (4.70-6.10); White Blood Count 6.25 K/ul (4.8-10.8)
[2023-04-01 12:02] LABS: Partial Thromboplastin Time 55 Seconds (21-31); Prothrombin Time 89.6 Seconds (9.0-12.0)
[2023-04-01 12:05] LABS: INR 9.4 (0.9-1.1)
[2023-04-01] MEDS: VANCOMYCIN HCL 1,250 MG in SODIUM CHLORIDE 0.9% 500 ML IV ONE (12:06)
--- NOTE | 2023-04-01 12:06 | Electrocardiogram Report ---
Test Reason : Blood Pressure : / mmHG Vent. Rate : 081 BPM Atrial Rate : 081 BPM P-R Int : 140 ms QRS Dur : 102 ms QT Int : 422 ms P-R-T Axes : 129 -30 -15 degrees QTc Int : 490 ms Unusual P axis, possible ectopic atrial rhythm Left axis deviation Left ventricular hypertrophy with repolarization abnormality ( Dannie product ) Possible Old Septal infarct Abnormal ECG When compared with ECG of 12-AUG-2022 14:52, Ectopic atrial rhythm has replaced Sinus rhythm Borderline Criteria for Septal infarct are now Present Nonspecific T wave abnormality now evident in Inferior leads Confirmed by Jewel Quesada ([id number]) on 04/01/2023 12:05:43 PM Referred By: Confirmed By:Jewel Quesada
[2023-04-01 12:08] LABS: Adenovirus PCR Not Detected (NotDetected); Bordetella parapertussis PCR Not Detected (NotDetected); Bordetella pertussis PCR Not Detected (NotDetected); Chlamydia pneumoniae PCR Not Detected (NotDetected); Coronavirus 229E PCR Not Detected (NotDetected); Coronavirus CoV-2 (COVID19)PCR Not Detected (NotDetected); Coronavirus HKU1 PCR Not Detected (NotDetected); Coronavirus NL63 PCR Not Detected (NotDetected); Coronavirus OC43PCR Not Detected (NotDetected); Human Metapneumovirus PCR Not Detected (NotDetected); Influenza A PCR Not Detected (NotDetected); Influenza B PCR Not Detected (NotDetected); Mycoplasma pneumoniae PCR Not Detected (NotDetected); Parainfluenza Virus 1 PCR Not Detected (NotDetected); Parainfluenza Virus 2 PCR Not Detected (NotDetected); Parainfluenza Virus 3 PCR Not Detected (NotDetected); Parainfluenza Virus 4 PCR Not Detected (NotDetected); Respiratory Syncytial VirusPCR Not Detected (NotDetected); Rhinovirus/Enterovirus PCR Not Detected (NotDetected)
[2023-04-01 12:16] LABS: ANC (manual) 5.56 K/uL (1.4-6.5); Lymphocytes # (manual) 0.44 K/uL (1.2-3.4); Lymphocytes % (manual) 7 %; Monocytes # (manual) 0.19 K/uL (0.11-0.59); Monocytes % (manual) 3 %; Neutrophils # (manual) 5.56 K/uL (1.40-6.50); Neutrophils % (manual) 89 %; Ovalocytes 1+; Plasma Cells # (manual) 0.06 K/uL (0-0); Plasma Cells % (manual) 1 %; Polychromasia 1+; Tear Drop Cells 1+; Toxic Vacuolation 2+
--- NOTE | 2023-04-01 13:02 | Nephrology Consultation ---
Date of Consultation April 01, 2023 Assessment & Plan (1) ESRD (end stage renal disease): (2) Thrombocytopenia: (3) Elevated INR: (4) Acute respiratory failure with hypoxia: (5) Pneumonia: (6) Pulmonary edema: (7) H/O stem cell transplant: Plan ESKD on hemodialysis, Tuesday, , Tuesday, admitted with pneumonia and Coumadin coagulopathy with INR above 9. Missed dialysis , has pulmonary edema but electrolyte acceptable. Blood pressure acceptable. Volume status acceptable. -- Dialysis now as regular schedule, for 3.5 h, UF 1.5 L to reach estimated dry weight of 64.6 kg. Will use tunneled dialysis catheter considering significantly elevated INR and low platelet -- Epogen 10,000 units x 1 dose today. -- if no clinical improvement or remain febrile, will need blood culture considering TDC, will not send at this time as pt already received broad spectrum antibiotic. -- Dose medications for GFR less than 10 -- Nephrocaps daily, check Phos with am labs, if elevated, will start on binder. Thank you for allowing me to participate in your patient's care. It was a pleasure to see Messi.. History of Present Illness Reason for Consultation: ESKD on HD. History of Present Illness Mr. Messi Londono is a 78-year-old male with PMH of ESKD on HD admitted with Pneumonia. Nephrology consult was requested for management of dialysis. EMR records were reviewed in detail during patient's visit. Messi was brought to ER by his with fever, cough and shortness of breath which started 2 /3 days ago. Vital signs are stable on admission, oxygen saturation 98% on nasal cannula oxygen. Chest x-ray showed pulmonary congestion and possible bibasilar consolidation versus pneumonia. CBC with normal WBC, hemoglobin 10.0, platelet was 35. INR was noted to be above 9. Labs showed normal electrolyte. He was started on vancomycin and cefepime for presumed pneumonia. He is on dialysis Tuesday, , Tuesday, last dialysis was Tuesday, missed dialysis yesterday. He has a AV graft and Rt IJ tunneled catheter however he has been refusing the use of AV graft because of pain, tried EMLA cream, did not help. Past medical history significant for ESKD has been on dialysis since August 2022, dialyzes at [facility] [place] on Tuesday, , Tuesday. Has functioning left BC AV graft but he is very anxious to use that and has been mostly refusing to use it and dialysis is being done viaRt IJ tunneled catheter. Has h/o Hypertension,AFib, mitral valve replacement, BPH, history of multiple myeloma status post bone marrow transplant complicated by kvtbg-diklut-wgzz disease. Has h/o, BPH, urinary retention and b/l hydronephrosis, has catheter since June 2022 as he was not interested in any surgery or CIC, catheter exchanged monthly. Reports decent UO He was seen while getting dialysis, tolerating dialysis. Overall feels poorly, continues to have cough. Allergies Allergy/AdvReac Type Severity Reaction Status Date / Time benzonatate Allergy Severe Hallucinati Unverified 04/01/23 14:47 [From Glenroy Billingsley] ng ASHLEY Inhibitors AdvReac Intermediate COUGH Verified 04/01/23 14:47 acetic acid AdvReac Intermediate Vinegar - Verified 04/01/23 14:47 Swelling of Lip/Tongue/Throat Home Medications Medication Instructions Recorded Confirmed Type metoprolol tartrate 50 mg tablet 50 mg PO BID #60 tabs 09/30/22 04/01/23 Rx cholecalciferol (vitamin D3) 50 2,000 mcg PO BID 11/15/22 04/01/23 History mcg (2,000 unit) capsule (Vitamin D3) sevelamer carbonate 800 mg tablet 800 mg PO TIDM 11/15/22 04/01/23 History simvastatin 20 mg tablet 20 mg PO HS 11/15/22 04/01/23 History warfarin 5 mg tablet See Rx Instructions .Route .COMPLEX 11/15/22 04/01/23 History vit B complx, C-iron 8 mg-folic 1 tab PO DAILY 01/01/23 04/01/23 History acid 800 mcg-D3 1,000 unit-zinc tablet (ProRenal) loperamide 2 mg capsule 2 mg PO Q3H PRN loose stool #30 01/07/23 04/01/23 Rx caps tamsulosin 0.4 mg capsule 0.4 mg PO HS #30 caps 03/01/23 04/01/23 Rx alprazolam 0.25 mg tablet (Xanax) 0.25 mg PO .COMPLEX #30 tabs 03/31/23 04/01/23 Rx amoxicillin 500 mg capsule 2,000 mg PO ONCE PRN dental 04/01/23 04/01/23 History appointment gshtva-[id number] 1 cap PO QID 04/01/23 04/01/23 History 36,000-114,000-180,000 unit capsule,delay rel (Creon) Patient History Medical History (Updated 04/01/23 @ 15:24 by Mary Jane Wheeler MD) ESRD (end stage renal disease) Indwelling Chandler catheter present Hemodialysis patient Tuesday//Tuesday [facility]. Depression Anxiety Chronic anticoagulation Paroxysmal atrial fibrillation managed with medication. no cardioversion. follows with Kip Artem Thrombocytopathia Hypocalcemia Chronic kidney disease Pancreatic lesion (benign) Hypokalemia Secondary hyperparathyroidism Diarrhea chronic Multiple myeloma dx 2013, treated with a stem cell transplant and chemotherapy. last chemo treatment in 2013. currently in remission. Hypertension Dyslipidemia Anemia Surgical History History of cystoscopy History of ERCP pancreatic biopsy History of colonoscopy History of tonsillectomy Permanent central venous catheter in place (08/26/22) Insertion of Perm Catheter, Right Internal Jugular Approach, Ultrasound Localization of Right Interanl Jugular vein, Fluoroscopy for Positioning(Right) - eBn Delgado DO H/O stem cell transplant S/P AVR (aortic valve replacement) (~1995) with repair of the AAA that was incidentally found. 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 Physical Exam Constitutional: WD/WN, vitals as above + ill appearing; no acute distress Eyes: + anicteric sclerae Neck: normal visual inspection Respiratory: + cough; no respiratory distress Ausc ultation: + diminished lung sounds Cardiovascular: Rate/Rhythm: regular rate and regular rhythm Heart Sounds: normal S1 and normal S2 Extremities: no edema Gastrointestinal (Abdomen): Inspection/Auscultation: abdomen normal to inspection Musculoskeletal: Extremities: extremities normal to inspection Skin: no rashes, warm and dry Neurologic: no focal motor deficits Psychiatric: Orientation: alert and oriented x 3 Affect: euthymic affect Genitourinary: Chandler catheter. Results & Data Vital Signs (Past 12 Hours) Vital Signs Temp Pulse Pulse Resp BP BP Pulse Ox 04/01/23 12:38 79 18 120/66 97 04/01/23 12:00 79 20 122/60 98 04/01/23 11:12 82 04/01/23 11:11 98 04/01/23 11:01 37.9 C H 88 22 125/61 84 L 04/01/23 10:57 83 L 04/01/23 10:57 98 O2 Del Method O2 Flow Rate 04/01/23 12:38 04/01/23 12:00 Nasal Cannula 4 04/01/23 11:12 04/01/23 11:11 Nasal Cannula 4 04/01/23 11:01 Room Air 04/01/23 10:57 Nasal Cannula 0 04/01/23 10:57 Nasal Cannula 4 PG Care Time/CCT Total # of Minutes Spent Total Time Spent with Patient: Total time spent is greater than 50% in coordination of care (as documented) at patient's floor/unit and/or counseling patient: Coding Level of Care Code 36240 INT INP/OBS CARE MIN Diagnoses ESRD (end stage renal disease) N18.6 Thrombocytopenia D69.6 Elevated INR R79.1 Acute respiratory failure with hypoxia J96.01 Pneumonia J18.9 Laterality: unspecified laterality Lung location: unspecified part of lung Pneumonia type: due to unspecified organism Pulmonary edema J81.0 Chronicity: acute H/O stem cell transplant Z94.84 (5) Pneumonia Laterality: unspecified laterality Lung location: unspecified part of lung Pneumonia type: due to unspecified organism Qualified Code(s): J18.9 - Pneumonia, unspecified organism (6) Pulmonary edema Chronicity: acute Qualified Code(s): J81.0 - Acute pulmonary edema
--- NOTE | 2023-04-01 13:26 | History & Physical Report ---
Date of Service April 01, 2023 Assessment & Plan (1) Pneumonia: Plan: Suspected due to increased oxygen requirement although this may just be pulmonary edema, although he appears to have an infection somewhere due to fevers at home with generalized weakness Possible concern for aspiration and will have SLT consult but unless overtly aspirating can have a normal diet pending this Cefepime/doxycycline (2) Acute respiratory failure with hypoxia: Plan: Aim O2 sats > 90% ?pulmonary edema from missed dialysis (although mucus membranes are very dry) ?pneumonia (3) Fever: Plan: Currently afebrile in the ER but recurrent fevers at home Presumed source of pneumonia on admission although be may just be bacteremic from his dialysis catheter Does not meet sepsis criteria on admission Biofire PCR negative Empiric vanc/cefepime/doxycycline as above pending blood culture results (4) Elevated INR: Plan: On for [facility] metallic AVR and a. fib with usual goal per cardiology notes 2-3. No active bleeding suspected but given concurrent platelets 35 in addition to INR > 8 this warrants treatment Vitamin K 2.5mg IV, repeat INR later today to check coming down, restart warfarin once < 3.5 Usual warfarin dosing 1mg x2 days, 0.5mg all other days but recently increased to 1mg x3 days, 0.5mg all other days (5) Thrombocytopenia: Plan: Suspect underlying infection leading to this D-dimer and fibrinogen added to labs to monitor concern for DIC Tranfusion threshold for Plt < 20 or < 50 if actively bleeding (6) Hemodialysis patient: Plan: Consult nephrology - discussed with Dr Wheeler and patient will have dialysis today using his catheter (7) Paroxysmal atrial fibrillation: Plan: Currently in NSR Anticoagulation on hold as INR supratherapeutic Continue metoprolol tartrate 50mg PO BID (8) H/O stem cell transplant: (9) Indwelling Cordero catheter present: Plan: Replaced in the ER, UA pending Restart tamsulosin when stable Plan VTE prophylaxis - supratherapeutic INR, warfarin on hold Diet - dialysis renal Disposition - admit to PCU Admission and Anticipated Discharge Date Admission Date: April 01, 2023 History of Present Illness Primary Care Provider: Doug Franklin MD Messi Londono is a 78-year-old male with end-stage renal disease on dialysis who presents to the ER due to fever and generalized weakness. Symptoms started on Tuesday following dialysis he appeared to be much more fatigued than usual however he appeared to recover slightly. Tuesday his noted he had a fever of 101. She wanted to bring his to the hospital yesterday as he had a recurrent fever and appeared to be getting more weak but he refused. Today he had a fever of 102.9 and was unable to get out of bed with increased confusion and short of breath therefore she called for an ambulance. He reports decreased appetite and has much less to eat and drink. He missed dialysis yesterday. He denies any diarrhea, abdominal pain, nausea or vomiting. Possible coughing more after eating but he is unsure. No sinus pain. No urinary symptoms (he still produces some urine with an indwelling cordero catheter in place (replaced in the ER). In the ER his INR was noted to be 9.4. His notes recently his warfarin dose was increased from 1mg x2 days and 0.5mg all other days to 1m x3 days and 0.5mg all other days. He is on warfarin for mechanical aortic valve replacement and at [facility] fibrillation with aim 2-3. He denies any epistaxis, hemoptysis, hematemesis, hematuria or external bleeding. Allergies Allergy/AdvReac Type Severity Reaction Status Date / Time benzonatate Allergy Severe Hallucinati Unverified 04/01/23 14:47 [From Glenroy Billingsley] ng ASHLEY Inhibitors AdvReac Intermediate COUGH Verified 04/01/23 14:47 acetic acid AdvReac Intermediate Vinegar - Verified 04/01/23 14:47 Swelling of Lip/Tongue/Throat Home Medications Medication Instructions Recorded Confirmed Type metoprolol tartrate 50 mg tablet 50 mg PO BID #60 tabs 09/30/22 04/01/23 Rx cholecalciferol (vitamin D3) 50 2,000 mcg PO BID 11/15/22 04/01/23 History mcg (2,000 unit) capsule (Vitamin D3) sevelamer carbonate 800 mg tablet 800 mg PO TIDM 11/15/22 04/01/23 History simvastatin 20 mg tablet 20 mg PO HS 11/15/22 04/01/23 History warfarin 5 mg tablet See Rx Instructions .Route .COMPLEX 11/15/22 04/01/23 History vit B complx, C-iron 8 mg-folic 1 tab PO DAILY 01/01/23 04/01/23 History acid 800 mcg-D3 1,000 unit-zinc tablet (ProRenal) loperamide 2 mg capsule 2 mg PO Q3H PRN loose stool #30 01/07/23 04/01/23 Rx caps tamsulosin 0.4 mg capsule 0.4 mg PO HS #30 caps 03/01/23 04/01/23 Rx alprazolam 0.25 mg tablet (Xanax) 0.25 mg PO .COMPLEX #30 tabs 03/31/23 04/01/23 Rx amoxicillin 500 mg capsule 2,000 mg PO ONCE PRN dental 04/01/23 04/01/23 History appointment sqnozq-dperhdlw-gexwuta 1 cap PO QID 04/01/23 04/01/23 History 36,000-114,000-180,000 unit capsule,delay rel (Creon) Past Med/Surg History Medical History (Updated 04/02/23 @ 01:08 by Henry Colindres MD) ESRD (end stage renal disease) Indwelling Cordero catheter present Hemodialysis patient Tuesday//Tuesday [facility]. Depression Anxiety Chronic anticoagulation Paroxysmal atrial fibrillation managed with medication. no cardioversion. follows with Jm Mcgill Thrombocytopathia Hypocalcemia Chronic kidney disease Pancreatic lesion (benign) Hypokalemia Secondary hyperparathyroidism Diarrhea chronic Multiple myeloma dx 2013, treated with a stem cell transplant and chemotherapy. last chemo treatment in 2013. currently in remission. Hypertension Dyslipidemia Anemia Surgical History History of cystoscopy History of ERCP pancreatic biopsy History of colonoscopy History of tonsillectomy Permanent central venous catheter in place (08/26/22) Insertion of Perm Catheter, Right Internal Jugular Approach, Ultrasound Localization of Right Interanl Jugular vein, Fluoroscopy for Positioning(Right) - Ben Delgado DO H/O stem cell transplant S/P AVR (aortic valve replacement) (~1995) with repair of the AAA that was incidentally found. Family History Mother Alzheimer disease Sister Breast cancer Father Myocardial infarction Denies family history of Ovarian cancer Prostate cancer Colorectal cancer Social History Smoking Status: Never smoker Second Hand Exposure: No; Do You Dip or Chew Tobacco: No; Tobacco Cessation Education Requested by Patient: No Hx Alcohol Use: No Hx Substance Use: No Preferred Language: Greenlandic Communication Ability: Effective Visual Impairment: No Limitations Track Inspecting Supervisor Required: No Beliefs That Will Affect Care: None marital status: Current Living Situation: Spouse Current Living Situation Comment: with current occupational status: employed 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 Other Information That Helps Us Care for You: No Feels Safe at Home: Yes Safety Concerns: Feels Safe At This Time Childhood Exposure to Second-Hand Smoke: No Diet: low salt Dental Care, Regularly: Yes Physical Activity Frequency: 1-2 Times per Week Physical Activity Frequency Comment: walk Seatbelt Use: always Sunscreen Use: Yes Assistive Devices: Cane Review of Systems Review of Systems: All systems reviewed & are unremarkable except as noted in HPI & below Physical Exam Constitutional: well developed and + frail appearing; + not well nourished and no acute distress Eyes: PERRL, conjunctivae normal, anicteric sclerae ENMT: Mouth: + dry oral mucous membranes Respiratory: normal respiratory effort; no respiratory distress Auscultation: + rhonchi (posteriorly); breath sounds present, no diminished lung sounds and no wheezes Cardiovascular: Rate/Rhythm: regular rate and regular rhythm Heart Sounds: no murmur Extremities: normal capillary refill; no calf tenderness and no pedal edema Gastrointestinal (Abdomen): normal bowel sounds, soft, nontender, no hepatosplenomegaly Musculoskeletal: no cyanosis or clubbing, extremities motor strength 5/5 Skin: no rashes, warm and dry (no areas of cellulitis noted) Neurologic: moves all extremities and awake; not confused Psychiatric: A+Ox3, euthymic affect Genitourinary: no CVA tenderness Results & Data Results & Data Vital Signs (Past 12 Hours) Vital Signs Temp Pulse Pulse Resp BP BP Pulse Ox 04/01/23 12:38 79 18 120/66 97 04/01/23 12:00 79 20 122/60 98 04/01/23 11:12 82 04/01/23 11:11 98 04/01/23 11:01 37.9 C H 88 22 125/61 84 L 04/01/23 10:57 83 L 04/01/23 10:57 98 O2 Del Method O2 Flow Rate 04/01/23 12:38 04/01/23 12:00 Nasal Cannula 4 04/01/23 11:12 04/01/23 11:11 Nasal Cannula 4 04/01/23 11:01 Room Air 04/01/23 10:57 Nasal Cannula 0 04/01/23 10:57 Nasal Cannula 4 Laboratory Results Abnormal lab results 04/01/23 04/01/23 04/01/23 Range/Units 11:02 11:32 12:47 RBC 3.26 L (4.70-6.10) M/uL Hgb 10.0 L (14.0-18.0) g/dl Hct 29.8 L (42.0-52.0) % RDW Std Deviation 55.2 H (36.4-46.3) fL RDW Coeff of Berto 16.3 H (11.5-14.5) % Plt Count 35 L (130-400) K/uL Lymphocytes # (Manual) 0.44 L (1.2-3.4) K/uL Total Abs Lymphocytes 0.50 L (1.2-3.4) K/uL Plasma Cell # (Manual) 0.06 H (0-0) K/uL Platelet Estimate (Normal) ESR (0-20) mm/hr PT 89.6 H (9.0-12.0) Seconds INR 9.4 H* (0.9-1.1) APTT 55 H (21-31) Seconds Fibrinogen (184-400) mg/dl D-Dimer (0-500) ug/L FEU VBG pH 7.48 H (7.36-7.41) VBG pCO2 31 L (38-50) mmHg Anion Gap 12 H (3-11) BUN 63 H (6-23) mg/dl Creatinine 8.46 H* (0.6-1.4) mg/dl BUN/Creatinine Ratio 7.4 L (10-20) Glucose 162 H (70-99(Fasting)) mg/dl Total Bilirubin 1.3 H (0.2-1.0) mg/dl Direct Bilirubin 0.4 H (0-0.2) mg/dl Troponin I High Sens 44.0 H 45.4 H (0-20) pg/ml Procalcitonin 2.84 H (0-0.5) ng/ml Urine Appearance (Clear) Urine pH (4.5-7.5) Urine Protein (Negative) Urine Glucose (UA) (Negative) Urine Ketones (Negative) Urine Blood (Negative) Ur Leukocyte Esterase (Negative) Urine WBC (Auto) (0-5) /hpf Urine RBC (Auto) (0-4) /hpf 04/01/23 04/01/23 04/01/23 Range/Units 19:16 20:59 21:15 RBC 2.82 L (4.70-6.10) M/uL Hgb 8.6 L (14.0-18.0) g/dl Hct 25.3 L (42.0-52.0) % RDW Std Deviation 52.6 H (36.4-46.3) fL RDW Coeff of Berto 16.1 H (11.5-14.5) % Plt Count 35 L (130-400) K/uL Lymphocytes # (Manual) (1.2-3.4) K/uL Total Abs Lymphocytes (1.2-3.4) K/uL Plasma Cell # (Manual) (0-0) K/uL Platelet Estimate Decreased L (Normal) ESR (0-20) mm/hr PT 34.9 H (9.0-12.0) Seconds INR 3.4 H (0.9-1.1) APTT (21-31) Seconds Fibrinogen 556 H (184-400) mg/dl D-Dimer 990 H* (0-500) ug/L FEU VBG pH (7.36-7.41) VBG pCO2 (38-50) mmHg Anion Gap (3-11) BUN (6-23) mg/dl Creatinine (0.6-1.4) mg/dl BUN/Creatinine Ratio (10-20) Glucose (70-99(Fasting)) mg/dl Total Bilirubin (0.2-1.0) mg/dl Direct Bilirubin (0-0.2) mg/dl Troponin I High Sens (0-20) pg/ml Procalcitonin (0-0.5) ng/ml Urine Appearance Cloudy A (Clear) Urine pH >= 9.0 H (4.5-7.5) Urine Protein 3+ H (Negative) Urine Glucose (UA) Trace H (Negative) Urine Ketones Trace H (Negative) Urine Blood 3+ H (Negative) Ur Leukocyte Esterase 1+ H (Negative) Urine WBC (Auto) >30 H (0-5) /hpf Urine RBC (Auto) >30 H (0-4) /hpf Diagnostic Findings XR chest 1V portable HISTORY: 78 years-old Male Sepsis acute sepsis COMPARISON: 08/26/2022 TECHNIQUE: AP view of the chest FINDINGS: Cardiac silhouette is enlarged. Median sternotomy. Right IJ [id number] catheter and double lumen hemodialysis catheters appear to be in similar positioning. No pneumothorax. Layering pleural effusions with bibasilar consolidation. Pulmonary vascular congestion with interstitial coarsening. Healed chronic left-sided rib fracture. Degenerative changes of the shoulders and spine. IMPRESSION: 1. Cardiomegaly with pulmonary edema. 2. Layering pleural effusions with bibasilar consolidation which may represent atelectasis versus pneumonia. Medications Administered ER Medications Given: Cefepime 2000mg IV Vancomycin 1250mg IV Code Status & VTE Plan Code Status Full VTE Prophylaxis Plan VTE Prophylaxis will be ordered: Yes PG Care Time/CCT Total # of Minutes Spent Total Time Spent with Patient: Total time spent is greater than 50% in coordination of care (as documented) at patient's floor/unit and/or counseling patient: Coding Level of Care Code 51681 INT INP/OBS CARE 3/75MIN Diagnoses Pneumonia J18.9 Acute respiratory failure with hypoxia J96.01 Fever R50.9 Elevated INR R79.1 Thrombocytopenia D69.6 Hemodialysis patient Z99.2 Paroxysmal atrial fibrillation I48.0 H/O stem cell transplant Z94.84 Indwelling Cordero catheter present Z97.8
[2023-04-01] MEDS ORDERED: PHYTONADIONE 1 MG in DEXTROSE 5% 50 ML IV STA (13:31)
--- OUTSIDE RECORDS SUMMARY | 2023-04-01 15:01 | External Medical Summary | Summary of Care ---
Author Name Unknown Organization [facility] Address [address] [place] [address] Phone [phone] Care Team Providers Care General Utility Maintenance Repairer Name Role Phone Doug Franklin MD Primary Care Provider +1- [phone] Reason for Visit * Reason Onset Date Comments Appointment 03/16/2023 Encounter Details Date Type Department Care Team (Late st Contact Info) Description 03/16/2023 Telephone Hematology/Oncology Treatment, [place] [address] [place] [address] Jono Brown MD [address] [place] [address] Appointment Allergies Active Allergy Reactions Criticality Noted Date Comments Torito Inhibitors 04/16/2013 Acetic Acid 04/04/2014 Severe mouth uclers documented as of this encounter (statuses as of 03/16/2023) Medications Medication Sig Dispensed Refills Start Date End Date Status SIMVASTATIN 20 MG PO TABS Take by mouth. Takes at night 0 Active METOPROLOL TARTRATE 50 MG PO TABSIndications:Atri al fibrillation (HCC) 1 Tab Oral 2 times a day 60 Tab 2 12/20/2013 Active Ascorbic Acid (VITAMIN C) 100 MG Tablet Take 1 Tablet by mouth in the morning. 0 Active hydrochlorothiazide (HYDRODIURIL) 12.5 MG Tablet Take 1 Tablet by mouth in the morning. 0 08/11/2017 Active Multivitamin Adult (Minerals) Oral Tablet Take by mouth. 0 Active Furosemide 80 MG Oral Tablet Take 1 Tablet by mouth in the morning. 0 Active Sodium Bicarbonate 325 MG Oral Tablet Take 1 Tablet by mouth in the morning and 1 Tablet at noon and 1 Tablet in the evening and 1 Tablet before bedtime. 0 Active Tamsulosin HCl 0.4 MG Oral Capsule (Flomax) Take 1 Capsule by mouth in the morning. 0 Active Insulin Syringe 30G X 07/06" 1 MLIndications:Atrial fibrillation, unspecified type (HCC) Inject under the skin every 12 hours. Use with heparin as directed before and after procedure 10 Each 0 11/09/2022 Active Warfarin Sodium 5 MG Oral Tablet (Coumadin)Indication s:S/P aortic valve replacement with prosthetic valve Take 1 tablet (5mg) Mondays, 1/2 tablet (2.5mg) all other days or as directed. 60 Tablet 3 11/30/2022 Active Amoxicillin 500 MG Oral Capsule (Amoxil) TAKE 4 CAPSULES BY MOUTH ONE HOUR BEFORE DENTAL APPOINTMENT 0 11/03/2022 Active Sevelamer Carbonate 800 MG Oral Tablet (Renvela) Take 1 Tablet by mouth in the morning and 1 Tablet at noon and 1 Tablet in the evening. Take with meals. 0 Active Creon 39141-120708 UNIT Oral Capsule Delayed Release Particles 3 times a day. 0 04/29/2022 Active Loperamide HCl 2 MG Oral Capsule (Imodium) Take 1 Capsule by mouth 4 times a day as needed. 0 04/08/2022 Active Calcitriol 0.25 MCG Oral Capsule (Rocaltrol) Take 1 Capsule by mouth in the morning. 0 Active Cholecalciferol 50 MCG (2000 UT) Oral Capsule 2 times a day. 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 Vitamin D insufficiency 11/20/2013 Encounter for antineoplastic chemotherapy 2013 S/P aortic valve replacement with prosthetic matteo ve 04/17/2013 nursing home current use of anticoagulant therapy 0 04/17/2013 Overview: ICD-10 update of inactive term Anticoagulation management encounter 04/17/2013 Multiple myeloma 04/11/2013 documented as of this encounter (statuses as of 03/16/2023) Resolved Problems Problem Noted Date Diagnosed Date Resolved Date Tachycardia 12/16/2013 12/26/2013 Metabolic acidosis 12/15/2013 4 Electrolyte and fluid disorder 12/13/2013 12/26/2013 Shingles 09/20/2013 12/11/2013 documented as of this encounter (statuses as of 03/16/2023) Immunizations Name Administration Dates Next Due COVID-19 mRNA, LNP-s, No Pre serve, 2-Dose Series (Moderna) 06/07/2020,05/10/2020 DTaP Dipth/Tet/Acell Pertussis (Infanrix), Peds 03/23/2017 HIB PRP-OMP, 3 dose (Pedvax) 04/13/2016,01/30/20 16 HIB PRP-T, 4 dose (ActHib) 03/23/2017 Hepatitis B, 20+ yrs 03/23/2017,04/13/2016,01/29 IPV - Polio Virus Vaccine (Inact) 03/23/2017,,01/30/2016 MMR - Measles/Mumps/Rubella Vaccine 03/23/2017 Meningococcal Conjugate Vacc ine (Menactra/Menveo) 03/23/2017,04/13/2016 Pneumococcal Conjugate Vacc, 13 Valent (Prevnar) 03/21/2018(Deferred: - Not given due to the patient already has received 3 doses),09/21/2017,05/18/2017, 8 Pneumococcal Polysaccharide PPV23 (Pneumovax) 01/30/2016 Seasonal Influenza, Quadriva lent, No Preserve, IM 01/30/2016 TD, Preservative Free 01/30/2016 TDAP (age 10 and older)(Boostrix) 04/13/2016 Varicella Vaccine (Chicken Pox) 03/23/2017 documented as of this encounter Social History Tobacco Use Types Packs/Day Years Used Date Smoking Tobacco: Never Smokeless Tobacco: Never Alcohol Use Standard Drinks/Week Comments No 0 (1 standard drink = 0.6 oz pur e alcohol) Hunger Vital Sign Answer Date Recorded Within the past 12 months, y ou worried that your food would run out before you got the money to buy more. Never true 09/07/19 23 Within the past 12 months, t he food you bought just didn't last and you didn't have money to get more. Never true 09/06/2022 Sex and Gender Information Value Date Recorded Sex Assigned at Not on file Gender Identity Not on file Sexual Orientation Not on file Job Start Date Occupation Industry Not on file Not on file Not on file documented as of this encounter Functional Status Functional Status Response Date of Assess ment Are you deaf or do you have serious difficulty h earing? No 12/05/2013 Are you blind or do you have serious difficulty seeing, even when wearing glasses? No 12/05/2013 Do you have serious difficul ty walking or climbing stairs? (5 years old or older) No 12/05/2013 Do you have difficulty dress ing or bathing? (5 years old or older) No 12/05/2013 Because of a physical, menta l, or emotional condition, do you have difficulty doing errands alone such as visiting a doctor s office or shopping? (15 years old or older) No 12/06/19 14 Cognitive Status Response Date of Assessm ent Because of a physical, menta l, or emotional condition, do you have serious difficulty concentrating, remembering, or making decisions? (5 years old or older) No 12/05/2013 documented as of this encounter Miscellaneous Notes * Telephone Encounter - Fabiola Bond OSA - 03/16/2023 11:07 AM EST Patient scheduled port flush/b12 for today. * Telephone Encounter - Fabiola Bond OSA - 03/16/2023 9:26 AM EST Per nursing : Pt is due for port flush/vit b12 injection. Please contact to schedule Called and lmom for patient. documented in this encounter Plan of Treatment Upcoming Encounters Date Type Department Care Team (Late st Contact Info) Description 03/16/2023 3:00 PM EST Immunization/Injection Hematology/Oncology Treatment, [place] [address] [place] [address] Nurse, Med [address] [place] [address] 03/17/2023 11:30 AM EST Anticoagulation Pharmacy, [facility] [place] [address] [place], [place] [address] Pharmacist1, [facility] [address] [place], [place] [address] 05/30/2023 2:30 PM EDT Laboratory Laboratory [facility] [place] [address] [facility] [place] [phone] [facility] [address] [place], [place] [address] 06/06/2023 2:30 PM EDT Office Visit Hematology/Oncology [facility] [place] [address] [facility] [place] [address] Jono Brown MD [address] [facility] [place] [address] Health Maintenance Due Date Last Done Comments Depression Screening 1957 Zoster Vaccines (1 of 2) 02/14/1964 COVID-19 Vaccine (3 - Moderna risk series) 07/05/2020 06/07/2020, 05/10/2020 Influenza Vaccine (FLU shot) (#1) 2022 01/30/2016 DTaP,Tdap,and Td Vaccines (3 - Td or Tdap) 03/23/2027 03/23/2017, 04/13/2016, 01/30/2016 Hepatitis B Completed 03/23/2017, 03/25, 01/30/2016 MENINGOCOCCAL (MENACTRA/MENVEO) Aged Out 03/23/2017, 03/23/2017, 04/13/2016, Additional history exists No longer eligible based on patient's age to complete this topic Pneumococcal Vaccine: 65+ Years Completed 09/21/2017, 05/18/2017, 03/23/2017, Additional history exists GARDASIL-HPV IMMUNIZATION SERIES Aged Out No longer eligible based on patient's age to complete this topic documented as of this encounter Medical Devices Not on filedocumented as of this encounter Advance Directives Latest Code Status on File Code Status Date Activated Date Inactivated Comments Full Code 12/05/2013 12:31 PM 12/20/2013 10:12 PM T his order reflects the patients wishes and were consensually agreed upon. Question Answer Comments Discussion of Advance Directives occurred with: Patient/Family Does the patient have a Living Will? No Does the patient have Health Care Power of Wind Turbine Installer? No Care Teams General Utility Maintenance Repairer Relationship Specialty Start Date End Date Doug Franklin MD [address] [place] [address] PCP - General Internal Medicine 11/30/13 documented as of this encounter
--- OUTSIDE RECORDS SUMMARY | 2023-04-01 15:01 | External Medical Summary | Summary of Care ---
Author Name Unknown Organization [facility] Address [address] [place] [address] Phone [phone] Care Team Providers Care Product Test Specialist Name Role Phone Pro, Doug Castillo MD Primary Care Provider +1- [phone] Reason for Visit * Reason Comments Dosage Adjustment In Person (Anticoag Cl inic) Encounter Details Date Type Department Care Team (Latest Contact Info) Description 03/16/2023 3:40 PM EST Anticoagulation Pharmacy, [facility] [address] [facility] [place] [address] Pharmacist1, [facility] [address] [place] [address] S/P aortic valve replacement with prosthetic valve* Allergies Active Allergy Reactions Criticality Noted Date [...] morning. 0 Active Insulin Syringe 30G X 516" 1 MLIndications:Atrial fibrillation, unspecified type (HCC) Inject [...] evening. Take with meals. 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 Medication Therapy Disease Management - Anticoagulation [facility] Bry 1945 Description Dialysis Tue, Thurs, Sat Patient Findings Negatives: Signs/symptoms of thrombosis, Signs/symptoms of bleeding, Change in health, Change in alcohol use, Change in activity, Upcoming invasive procedure, Missed doses, Extra doses, Change in medications, Change in diet/appetite, Bruising INR Result As of 03/16/2023 INR goal: 2.0-2.5 INR used for dosin.5 (03/16/2023) Warfarin Plan As of 03/16/2023 Full warfarin instructions: 03/16: 7.5 mg; Otherwise 2.5 mg every Sun, Tue, Maggi; 5 mg all other days Next INR check: 04/27/2023 Repeat PT/INR in 6 week(s) with hem/onc appointment Weekly dose: increased Cesar Aguilar RPh, CACP, CDE Clinical Pharmacist Medication Therapy Management Clinic 03/16/2023 3:44 PM documented in this encounter Plan of Treatment Upcoming Encounters Date Type Department Care Team (Late st Contact Info) Description 04/27/2023 2:50 PM EST Anticoagulation Pharmacy, [facility] [place] [address] [place] [address] Pharmacist1, [facility] [address] [facility] [place] [address] 04/27/2023 3:00 PM EST Immunization/Injection [facility]ematology/Oncology Treatment, [place] [address] [facility] [address] Nurse, Med [address] [facility] [place] [place] [address] 05/30/2023 2:30 PM EDT Laboratory Laboratory [facility] [place] [address] [facility] [place] [phone] [place], Lab [facility] [address] [facility] [place], [place] [address] 06/06/2023 2:30 PM EDT Office Visit Hematology/Oncology [facility] [place] [address] [facility] [place] [address] Jono Brown MD [address] [facility] [place], [place] [address] Health Maintenance Due Date Last Done Comments [...] Not on filedocumented as of this encounter Procedures Procedure Name Priority Date/Time Associated Diagnosis Comments INR FINGERSTICK, POINT OF CARE STAT 03/16/2023 3:41 PM EST S/P aortic valve replacement with prosthetic valve documented in this encounter Results * INR FINGERSTICK, POINT OF CARE (03/16/2023 3:41 PM EST) Fingerstick INR 1.5 INR 3:42 PM EST [facility]02 Blood 03/16/2023 3:41 PM EST 03/16/2023 3:42 PM EST Narrative [facility]-02 - 03/16/2023 3:42 PM EST Therapeutic ranges for non-operative patients: Prophylaxsis/treatment of DVT: (Range:2.0-3.0) Treatment of pulmonary embolism:(Range:2.0-3.0) Prevention of systemic embolism from: -tissue heart valves -acute myocardial infarction -valvular heart disease -atrial fibrillation (Range: 2.0-3.0) Mechanical prosthetic valves: (Range: 2.5-3.5) Jose Alberto Sevilla [facility] LAB POINT O F CARE TEST DOCKED DEVICE UNSOLICITED RESULTS [facility] [place] [address] documented in this encounter Visit Diagnoses Diagnosis S/P aortic valve replacement with prosthetic valve- Primary Heart valve replaced by other means documented in this encounter Advance Directives Latest Code Status on File Code Status Date Activated Date Inactivated Comments Full Code 12/05/2013 12:31 PM 12/20/2013 10:12 PM T his order reflects the patients wishes and were consensually agreed upon. Question Answer Comments Discussion of Advance Directives occurred with: Patient/Family Does the patient have a Living Will? No Does the patient have Health Care Power of Rolling Machine Operator? No Care Teams Product Test Specialist Relationship Specialty Start Date End Date Doug Franklin MD [address] [place] [address] PCP - General Internal Medicine 11/30/13 documented as of this encounter
--- OUTSIDE RECORDS SUMMARY | 2023-04-01 15:01 | External Medical Summary | Summary of Care ---
Author Name Unknown Organization [facility] Address [address] [place] [address] Phone [phone] Care Team Providers Care Inspector Radar And Electronics Name Role Phone Pro, Doug Castillo MD Primary Care Provider +1- [phone] Reason for Visit * Reason Comments Treatment Encounter Details Date Type Department Care Team (Late st Contact Info) Description 03/16/2023 3:00 PM EST Immunization/I njection Hematology/Oncology Treatment, [place] [address] [address] [facility] [address] [place] [address] Nurse, Med 200 [place] [address] Vitamin B12 deficiency*; Multiple myeloma in remission (HCC) Allergies Active Allergy Reactions Criticality Noted Date [...] morning. 0 Active Insulin Syringe 30G X 5/16" 1 MLIndications:Atrial fibrillation, unspecified type (HCC) Inject [...] evening. Take with meals. 0 Active Creon [id number] UNIT Oral Capsule Delayed Release Particles 3 [...] valve replacement with prosthetic matteo ve 04/17/2013 intermediate current use of anticoagulant therapy 0 04/17/2013 [...] No 12/05/2013 documented as of this encounter Nursing Notes * Socorro Buckley, RN - 03/16/2023 3:33 PM EST Patient here for port flush and B12 shot. documented in this encounter Plan of Treatment Upcoming Encounters Date Type Department Care Team (Late st Contact Info) Description 04/27/2023 2:50 PM EST Anticoagulation Pharmacy, [facility] [address] [facility] [place] [address] Pharmacist1, [facility] [address] [place] [address] 04/27/2023 3:00 PM EST Immunization/Injection Hematology/Oncology Treatment, [place] [address] [place] [address] Nurse, Med [address] [place] [address] 05/30/2023 2:30 PM EDT Laboratory Laboratory [facility] [address] [place] [phone] [place] [facility] [address] [facility] [place] [address] 06/06/2023 2:30 PM EDT Office Visit Hematology/Oncology [facility] [place] [address] [facility] [place] [address] Jono Brown MD [address] [facility] [place] [address] Health Maintenance Due Date Last Done Comments [...] Not on filedocumented as of this encounter Visit Diagnoses Diagnosis Vitamin B12 deficiency- Primary Other B-complex deficiencies Multiple myeloma in remission (HCC) Multiple myeloma in remission documented in this encounter Administered Medications Inactive Administered Medications - up to 3 most recent administrations Medication Order MAR Action Action Date Dose Rate Site hEParin 100 UNIT/ML Lock Flush inj 500 Units 500 Units (5 mL), IV Lock, PRN Other, IV Flush, Starting on Tue03/16/23 at 1508, Until Tue03/16/23 at 1537, For 24 hours, Do not flush if lock, PICC, or central line not in place; IV infusing or unable to flush. Given 03/16/2023 3:20 PM EST 500 Units sodium chloride 0.9 % flush central line 10 mL 10 mL, IV Push, PRN Other, IV Flush, Starting on Tue03/16/23 at 1508, Until Tue03/16/23 at 1537, For 24 hours, Do not flush if lock, PICC, or central line not in place; IV infusing or unable to flush. Given 03/16/2023 3:20 PM EST 10 mL vitamin b-12 (Cyanocobalamin) inj 1,000 mcg 1,000 mcg, Subcutaneous, ONCE, On Tue03/16/23 at 1600, For 1 dose Given 03/16/2023 3:13 PM EST 1,000 mcg Arm Right Upper documented in this encounter Advance Directives Latest [...] the patient have Health Care Power of Striker Off? No Care Teams Inspector Radar And Electronics Relationship Specialty Start Date End Date ProDoug MD [address] [place] [address] PCP - General Internal Medicine 11/30/13 documented as of this encounter
--- OUTSIDE RECORDS SUMMARY | 2023-04-01 15:01 | External Medical Summary ---
Author Name Unknown Address Unknown Organization K[facility] [place] [address] Laboratory Report Ordering Provider Test Date Status THERESA LOPEZ 03/16/2023 15:41:24 Final Therapeutic ranges for non-o perative patients:
Prophylaxsis/treatment of DVT: (Range:2.0-3.0)
Treatment of pulmonary embolism:(Range:2.0-3.0)
Prevention of systemic embolism from:
-tissue heart valves
-acute myocardial infarction
-valvular heart disease
-atrial fibrillation
(Range: 2.0-3.0)
Mechanical prosthetic valves: (Range: 2.5-3.5) Observation Date Value Abnormality Reference (Units ) Status INR in Capillary blood by Coagulation assay 03/16/2023 15:41:24 1.5 (INR) Final Performing Location [facility] [place] [address]
--- OUTSIDE RECORDS SUMMARY | 2023-04-01 15:01 | External Medical Summary | Summary of Care ---
Author Name Unknown Organization [facility] Address [address] [place] [address] Phone [phone] Care Team Providers Care Donkey Engine Firer/Fireman Name Role Phone Doug Franklin MD Primary Care Provider +1- [phone] Reason for Visit * Reason Onset Date Comments Appointment 03/16/2023 Encounter Details Date Type Department Care Team (Late st Contact Info) Description 03/16/2023 Telephone Hematology/Oncology Treatment, [place] [address] [place] [address] Jono Brown MD [address] [place] [address] Appointment Allergies Active Allergy Reactions Criticality Noted [...] evening. Take with meals. 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 0 04/17/2013 [...] Care Team (Late st Contact Info) Description 03/22/2023 6:10 PM EST Anticoagulation Pharmacy, [facility] [place] [address] [place] [address] Pharmacist1, [facility] [address] [facility] [place] [address] 05/30/2023 2:30 PM EDT Laboratory Laboratory [facility] [place] [address] [place] [phone] [place], [facility] [address] [facility] [place] [address] 06/06/2023 2:30 PM EDT Office Visit Hematology/Oncology [facility] [place] [address] [facility] [place] [address] Jono Brown MD [address] [facility] [place] [address] Health Maintenance Due Date Last Done Comments [...] the patient have Health Care Power of Greenskeeper Laborer? No Care Teams Donkey Engine Firer/Fireman Relationship Specialty Start Date End Date Pro, Doug Castillo MD [address] [place], [place] [address] PCP - General Internal Medicine 11/30/13 documented as of this encounter
--- OUTSIDE RECORDS SUMMARY | 2023-04-01 15:02 | External Medical Summary | Summary of Care ---
Author Name Unknown Organization [facility] Address [address] [place] [address] Phone [phone] Care Team Providers Care Art Psychotherapist Or Therapist Name Role Phone Pro, Doug Castillo MD Primary Care Provider +1- [phone] Reason for Visit * Reason Onset Date Comments Appointment 12/13/2022 Kevin Encounter Details Date Type Department Care Team (Late st Contact Info) Description 12/13/2022 Telephone Access Center, [place] [address] [facility] *DO NOT REMOVE THIS DEPARTMENT* [place] [address] Services, Scheduling [address] [place] [address] Appointment (Kevin ) Allergies Active Allergy Reactions Criticality Noted Date Comments Torito Inhibitors 04/16/2013 Acetic Acid 04/04/2014 Severe mouth uclers documented as of this encounter (statuses as of 03/14/2023) Medications Medication Sig Dispensed Refills Start Date [...] morning. 0 Active Insulin Syringe 30G X 16" 1 MLIndications:Atrial fibrillation, unspecified type (HCC) Inject [...] evening. Take with meals. 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 current use of anticoagulant therapy 0 04/17/2013 Overview: ICD-10 update of inactive term Anticoagulation management encounter 04/17/2013 Multiple myeloma 04/11/2013 documented as of this encounter (statuses as of 03/14/2023) Resolved Problems Problem Noted Date Diagnosed Date Resolved Date Tachycardia 12/16/2013 12/26/2013 Metabolic acidosis 12/15/2013 4 Electrolyte and fluid disorder 12/13/2013 12/26/2013 Shingles 09/20/2013 12/11/2013 documented as of this encounter (statuses as of 03/14/2023) Immunizations Name Administration Dates Next Due COVID-19 [...] encounter Miscellaneous Notes * Telephone Encounter - Akanksha Najera RN - 12/13/2022 11:53 AM EDT Patient missed port flush/ B12 12/10/22. * Telephone Encounter - Beth Valle OSA - 12/13/2022 11:44 AM EDT Pt calling to reschedule injection. Please assist. Thank you. documented in this encounter Plan of Treatment Upcoming Encounters Date Type Department Care Team (Late st Contact Info) Description 03/15/2023 6:10 PM EST Anticoagulation Pharmacy, [place] [address] [place] [address] Pharmacist1, [facility] [address] [facility] [place] [id number] 05/30/2023 2:30 PM EDT Laboratory Laboratory [place], [place] [address] [place] [id number] [facility] [address] [facility] [place] [address] 06/06/2023 2:30 PM EDT Office Visit Hematology/Oncology [facility] [place] [address] [facility] [place] [address] Jono Brown MD [address] [facility] [place] [address] Health Maintenance Due Date Last Done Comments [...] the patient have Health Care Power of Territory Service Representative? No Care Teams Art Psychotherapist Or Therapist Relationship Specialty Start Date End Date Pro, Doug Castillo MD [address] [facility], [place] [address] PCP - General Internal Medicine 11/30/13 documented as of this encounter
--- OUTSIDE RECORDS SUMMARY | 2023-04-01 15:02 | External Medical Summary | Summary of Care ---
Author Name Unknown Organization [facility] Address [address] [place] [address] Phone [phone] Care Team Providers Care Case Fitter Name Role Phone Pro, Doug Castillo MD Primary Care Provider +1- [phone] Reason for Visit * Reason Comments Appointment Encounter Details Date Type Department Care Team (Latest Contact Info) Description 03/15/2023 6:10 PM EST Anticoagulation Pharmacy, [facility] [address] [facility] [place] [address] Pharmacist1, [facility] [address] [place] [address] S/P aortic valve replacement with prosthetic valve* Allergies Active Allergy Reactions Criticality Noted Date Comments Torito Inhibitors 04/16/2013 Acetic Acid 04/04/2014 Severe mouth uclers documented as of this encounter (statuses as of 03/15/2023) Medications Medication Sig Dispensed Refills Start Date [...] evening. Take with meals. 0 Active Creon [id number] UNIT Oral Capsule Delayed Release Particles 3 [...] as of this encounter (statuses as of 03/15/2023) Active Problems Problem Noted Date Diagnosed Date History of multiple myeloma 12/20/2018 Vitamin B12 deficiency 04/22/2017 Anxiety disorder 12/26/2013 A-fib 12/20/2013 Intestinal infection due to Clostridium difficil e 12/13/2013 Stem cells transplant status 12/06/2013 Vitamin D insufficiency 11/20/2013 Encounter for antineoplastic chemotherapy 2013 S/P aortic valve replacement with prosthetic matteo ve 04/17/2013 longterm current use of anticoagulant therapy 0 04/17/2013 Overview: ICD-10 update of inactive term Anticoagulation management encounter 04/17/2013 Multiple myeloma 04/11/2013 documented as of this encounter (statuses as of 03/15/2023) Resolved Problems Problem Noted Date Diagnosed Date Resolved Date Tachycardia 12/16/2013 12/26/2013 Metabolic acidosis 12/15/2013 4 Electrolyte and fluid disorder 12/13/2013 12/26/2013 Shingles 09/20/2013 12/11/2013 documented as of this encounter (statuses as of 03/15/2023) Immunizations Name Administration Dates Next Due COVID-19 [...] as of this encounter Progress Notes * Consuelo Angel PHARM Tech - 03/15/2023 8:33 AM EST Patient Phone Numbers Left message on patients answering machine to schedule [facility] appointment for anticoagulation management. [facility] message sent --no Clinic will follow up again in 1 week(s). [Attempt # N/A] Thank you, Consuelo Angel [employer] Manager [facility] ([facility]) (formerly Telepharmacy) [phone] 03/15/2023,8:33 AM documented in this encounter Plan of Treatment Upcoming Encounters Date Type Department Care Team (Late st Contact Info) Description 03/22/2023 6:10 PM EST Anticoagulation Pharmacy, [place] [address] [place] [address] Pharmacist1, [facility] [address] [place] [address] 05/30/2023 2:30 PM EDT Laboratory Laboratory [facility] [place] [address] [facility] [place] [id number] [facility] [address] [facility] [place] [address] 06/06/2023 2:30 PM EDT Office Visit Hematology/Oncology [facility] [place] [address] [facility] [place] [address] Jono Brown MD [address] [facility] [place] [address] Health Maintenance Due Date Last Done Comments [...] as of this encounter Visit Diagnoses Diagnosis S/P aortic [...] the patient have Health Care Power of Pipelines Superintendent? No Care Teams Case Fitter Relationship Specialty Start Date End Date Pro, Doug Castillo MD [address] [facility] [address] PCP - General Internal Medicine 11/30/13 documented as of this encounter
--- NOTE | 2023-04-01 16:56 | Pharmacy Report ---
Pharmacy PK ABX Note - Date of Service April 01, 2023 - Assessment and Plan Assessment 78 year old M receiving vancomcyin/cefepime/doxycyline for treatment of empiric treatment/possible pneumonia. Pertinent microbiologic data includes: Blood cultures pending, MRSA nasal swab ordered. Patient received ~800 mg of 1250 mg loading dose prior to going to dialysis. Dialysis may remove up to 30%. Will redose with 750 mg after dialysis and obtain level in AM. Plan Vancomycin * Loading dose: 800 mgx1 * Give additional 750 mg x1 after dialysis * Dose by levels Pharmacy will continue to follow and will adjust dose/frequency as necessary. Thank you. Pharmacy has transitioned to AUC monitoring for vancomycin. AUC/AUSTYN is the preferred PK/PD target and is associated with decreased risk of nephrotoxicity compared to traditional trough targets.
[2023-04-01] MEDS: EPOETIN ALFA 10,000 UNITS/ML VIAL IV STA (17:03)
[2023-04-01] MEDS ORDERED: Nursing to Pharmacy Communication SCH (17:45)
[2023-04-01] MEDS: PHYTONADIONE 2.5 MG in DEXTROSE 5% 50 ML IV ONE (18:01)
[2023-04-01] MEDS ORDERED: VANCOMYCIN HCL 750 MG in SODIUM CHLORIDE 0.9% 250 ML IV SCH (18:30)
[2023-04-01] MEDS: ACETAMINOPHEN 325 MG TAB PO PRN (19:26)
[2023-04-01] MEDS: VANCOMYCIN HCL 750 MG in SODIUM CHLORIDE 0.9% 250 ML IV SCH (19:30)
[2023-04-01 20:00] LABS: Fibrinogen 556 mg/dl (184-400)
[2023-04-01 20:05] LABS: D Dimer 990 ug/L FEU (0-500)
[2023-04-01] MEDS: DOXYCYCLINE HYCLATE 100 MG in DEXTROSE 5% MINI-B 100 ML IV SCH (21:09)
[2023-04-01 21:31] LABS: Appearance Urine Cloudy (Clear); Bacteria Urine Automated Negative (Negative); Bilirubin Urine Negative (Negative); Blood Urine 3+ (Negative); Color Urine Dark Yellow; Epithelial Cell Urine Auto 0-5 /lpf (0-5); Glucose Urine UA Trace (Negative); Ketones Urine Trace (Negative); Leukocyte Esterase Urine 1+ (Negative); Nitrite Urine Negative (Negative); Specific Gravity Urine 1.016 (1.000-1.030); Urobilinogen Urine Negative (Negative); WBC Urine Automated >30 /hpf (0-5); pH Urine >= 9.0 (4.5-7.5)
[2023-04-01 21:36] LABS: Hematocrit (blood only) 25.3 % (42.0-52.0); Hemoglobin 8.6 g/dl (14.0-18.0); Mean Corpuscular Hemoglobin 30.5 pg (25.0-34.0); Mean Corpuscular Volume 89.7 fL (80.0-100.0); Platelet Count 35 K/uL (130-400); Platelet Estimate Decreased (Normal); RDW Coefficient of Variation 16.1 % (11.5-14.5); RDW Standard Deviation 52.6 fL (36.4-46.3); Red Blood Count 2.82 M/uL (4.70-6.10); White Blood Count 5.52 K/ul (4.8-10.8)
[2023-04-01 21:36] LABS: Protein Urine 3+ (Negative)
[2023-04-01 21:42] LABS: RBC Urine Automated >30 /hpf (0-4)
[2023-04-01 21:43] LABS: INR 3.4 (0.9-1.1); Prothrombin Time 34.9 Seconds (9.0-12.0)
[2023-04-01] MEDS: DEXTROMETHORPHAN POLYMR COMPLX 30 MG/5 ML UDP PO PRN (21:43)
[2023-04-01] MEDS: CHOLECALCIFEROL 25 MCG (1000 UNITS) TAB PO SCH (23:05)
[2023-04-01] MEDS: METOPROLOL TARTRATE 50 MG TAB PO SCH (23:05)
[2023-04-01] MEDS: SIMVASTATIN 20 MG TAB PO SCH (23:05)
[2023-04-01] MEDS: PANCREAZE (LIPASE 10,500U) CAP PO SCH (23:05)
[2023-04-02 07:22] LABS: Hematocrit (blood only) 25.2 % (42.0-52.0); Hemoglobin 8.5 g/dl (14.0-18.0); Mean Corpuscular Hemoglobin 30.7 pg (25.0-34.0); Mean Corpuscular Hgb Conc 33.7 g/dL (32.0-36.0); Platelet Count 32 K/uL (130-400); RDW Coefficient of Variation 16.4 % (11.5-14.5); RDW Standard Deviation 54.4 fL (36.4-46.3); Red Blood Count 2.77 M/uL (4.70-6.10); White Blood Count 5.09 K/ul (4.8-10.8)
[2023-04-02 07:29] LABS: Basophils # (auto) 0.01 K/uL (0.00-0.20); Basophils % (auto) 0.2 %; Immature Granulocytes # (auto) 0.06 K/uL (0.01-0.20); Immature Granulocytes % (auto) 1.2 %; Lymphocytes # (auto) 0.39 K/uL (1.20-3.40); Lymphocytes % (auto) 7.7 %; Monocytes # (auto) 0.63 K/uL (0.11-0.59); Monocytes % (auto) 12.4 %; Neutrophils % (auto) 78.5 %; Ovalocytes 1+; Polychromasia 1+
[2023-04-02 07:58] LABS: INR 1.5 (0.9-1.1); Prothrombin Time 16.2 Seconds (9.0-12.0)
[2023-04-02 08:03] LABS: Albumin Globulin Ratio 1.2 (0.9-2); Albumin Level 3.2 gm/dl (3.4-5.0); BUN Creatinine Ratio 8.1 (10-20); Bilirubin,Total 1.4 mg/dl (0.2-1.0); C Reactive Protein 11.39 mg/dl (0-0.5); Calcium 8.1 mg/dl (8.6-10.3); Creatinine Clr Calc Pharmacy 9.7 ml/min; Est GFR (African American) 11.3 ml/min; Est GFR (Non-African American) 9.8 ml/min; Globulin 2.6 gm/dl (2.5-4.0); Potassium 3.6 mmol/L (3.5-5.1); Total Protein 5.8 gm/dl (6.0-8.3)
[2023-04-02] MEDS: SEVELAMER HCL 800 MG TABLET PO SCH (08:17)
[2023-04-02] MEDS: CEFEPIME 1,000 MG in SYRINGE 0 ML IV SCH (08:17)
[2023-04-02 08:35] LABS: A calco-baum cmplx NotReported Not Detected (NotDetected); Bact fragilis Not Reported Not Detected (NotDetected); Blood Culture Id Panel See PCR Comment (NotDetected); C auris Not Reported Not Detected (NotDetected); Calbicans Not Reported Not Detected (NotDetected); Candida glabrata Not Reported Not Detected (NotDetected); Candida krusei Not Reported Not Detected (NotDetected); Cneoformans/gatti Not Reported Not Detected (NotDetected); Cparapsilosis Not Reported Not Detected (NotDetected); E cloacae compx Not Reported Not Detected (NotDetected); Efaecalis Not Reported Not Detected (NotDetected); Efaecium Not Reported Not Detected (NotDetected); Enterobacterales Not Reported Not Detected (NotDetected); Escherichia coli Not Reported Not Detected (NotDetected); H influenzae Not Reported Not Detected (NotDetected); K aerogenes Not Reported Not Detected (NotDetected); Koxytoca Not Reported Not Detected (NotDetected); Kpneumoniae grp Not Reported Not Detected (NotDetected); Lmonocyt Not Reported Not Detected (NotDetected); N meningitidis Not Reported Not Detected (NotDetected); P aeruginosa Not Reported Not Detected (NotDetected); Proteus spp Not Reported Not Detected (NotDetected); Salmonella spp Not Reported Not Detected (NotDetected); Smarcescens Not Reported Not Detected (NotDetected); Staph lugdunensis Not Reported Not Detected (NotDetected); Staph spp. Not Reported DETECTED (NotDetected); Staphaureus Not Reported Not Detected (NotDetected); Staphepi Not Reported DETECTED (NotDetected); Staphylococcus spp. DETECTED (NotDetected); Stenmaltophilia Not Reported Not Detected (NotDetected); Strep agal(GrpB) Not Reported Not Detected (NotDetected); Strep pneum Not Reported Not Detected (NotDetected); Strep pyog (GrpA) Not Reported Not Detected (NotDetected); Strep spp Not Reported Not Detected (NotDetected); mecAC Resistant Gene DETECTED (NotDetected)
[2023-04-02 08:42] LABS: Staphylococcus epidermidis DETECTED (NotDetected)
[2023-04-02] MEDS ORDERED: VANCOMYCIN CONSULT ACTIVE PRN (08:46)
[2023-04-02] MEDS ORDERED: VANCOMYCIN HCL 1,000 MG in SODIUM CHLORIDE 0.9% 500 ML IV SCH (09:00)
--- NOTE | 2023-04-02 10:21 | Pharmacy Report ---
Pharmacy PK ABX Note - Date of Service April 02, 2023 - Assessment and Plan Assessment 04/02: * Continues on vanc/cefepime. MRSA nasal (-). Blood cultures (+) GPC in 02/24- Biofire (+) MRSE. HD yesterday - no orders for dialysis today. 04/01: * 78 year old M receiving vancomcyin/cefepime/doxycyline for treatment of empiric treatment/possible pneumonia. Pertinent microbiologic data includes: Blood cultures pending, MRSA nasal swab ordered. Patient received ~800 mg of 1250 mg loading dose prior to going to dialysis. Dialysis may remove up to 30%. Will redose with 750 mg after dialysis and obtain level in AM. Plan Vancomycin * S/p 800mg X 1 pre-HD yesterday and 750mg post HD. Random level this AM, 13.4mcg/mL - safe to re-dose. * Vancomycin 750mg IV X 1 this AM. Random level tomorrow AM to guide further dosing. Pharmacy will continue to follow and will adjust dose/frequency as necessary. Thank you. Pharmacy has transitioned to AUC monitoring for vancomycin. AUC/AUSTYN is the preferred PK/PD target and is associated with decreased risk of nephrotoxicity compared to traditional trough targets.
[2023-04-02] MEDS: VANCOMYCIN HCL 750 MG in SODIUM CHLORIDE 0.9% 250 ML IV ONE (10:26)
[2023-04-02] MEDS: ALPRAZolam 0.25 MG TABLET PO SCH (10:27)
--- NOTE | 2023-04-02 12:03 | Nephrology Progress Note ---
Date of Service April 02, 2023 Assessment & Plan (1) ESRD (end stage renal disease): Plan: Completed HD yesterday with adequate UF and clearance. BP acceptable. Volume status controlled. No additional HD today. Medications are appropriate for kidney function. TDC used for HD yesterday. Messi has had concerns regarding AVG due to recent infiltration. The graft has a good thrill and bruit and should be ok for use. Will attempt AVG with next HD. AVF placed by Dr. Oshea on 11.26.22. Outpatient Rx is TTS 3.5 hrs, EDW 64.5 kg, 3K 137Na 400/800. Renal diet. Sevelamer QAC. (2) Acute respiratory failure with hypoxia: Plan: Attributed to pneumonia. Clinically improving. Volume status acceptable. (3) Pneumonia: Plan: Remains on cefepime and vanco. Final cultures pending. (4) Pulmonary edema: Plan: Completed emergent HD yesterday with adequate UF. (5) H/O stem cell transplant: Admission and Anticipated Discharge Date Admission Date: April 01, 2023 Subjective No acute events overnight. Messi reports feeling weak and tired today. Afebrile overnight. Breathing comfortably. Tolerated HD well yesterday. No complications with treatment. Denies fluid retention or edema. Review of Systems Review of Systems: All systems reviewed & are unremarkable except as noted in HPI & below Physical Exam Constitutional: well developed and + frail appearing; no acute distress Eyes: PERRL, conjunctivae normal, anicteric sclerae ENMT: Mouth: + dry oral mucous membranes Respiratory: normal respiratory effort; no respiratory distress Auscultation: + rhonchi; no diminished lung sounds and no wheezes Cardiovascular: Rate/Rhythm: regular rate and regular rhythm Heart Sounds: no murmur Extremities: normal capillary refill and + AV fistula (LUE BC AVG); no calf tenderness and no pedal edema Gastrointestinal (Abdomen): normal bowel sounds, soft, nontender, no hepatosplenomegaly Musculoskeletal: no cyanosis or clubbing, extremities motor strength 5/5 Skin: no rashes, warm and dry (no areas of cellulitis noted) Neurologic: moves all extremities and awake; not confused Psychiatric: A+Ox3, euthymic affect Results & Data Vital Signs (Past 12 Hours) Vital Signs Temp Pulse Resp BP Pulse Ox O2 Del Method O2 Flow Rate 04/02/23 11:32 38.2 C H 82 107/56 L 97 Nasal Cannula 4.0 04/02/23 08:01 Nasal Cannula 4 04/02/23 08:01 37.7 C H 76 19 99/51 L 96 Nasal Cannula 4.0 04/02/23 03:03 36.9 C 65 20 96/49 L 94 Nasal Cannula 4 Laboratory Results Laboratory Results - last 24 hr 04/01/23 04/01/23 04/01/23 11:02 12:47 19:16 WBC RBC Hgb Hct MCV MCH MCHC RDW Std Deviation RDW Coeff of Berto Plt Count Immature Gran % (Auto) Neut % (Auto) Lymph % (Auto) [place]ipley % (Auto) Eos % (Auto) Baso % (Auto) Neut # (Auto) Lymph # (Auto) [place] # (Auto) Eos # (Auto) Baso # (Auto) Immature Gran # (Auto) Neutrophils % (Manual) 89 Lymphocytes % (Manual) 7 Monocytes % (Manual) 3 Plasma Cell % (Manual) 1 Neutrophils # (Manual) 5.56 Total Absolute Neuts 5.56 Lymphocytes # (Manual) 0.44 L Total Abs Lymphocytes 0.50 L Monocytes # (Manual) 0.19 Plasma Cell # (Manual) 0.06 H Toxic Vacuolation 2+ Platelet Estimate Polychromasia 1+ Tear Drop Cells 1+ Ovalocytes 1+ ESR PT 89.6 H INR 9.4 H* APTT 55 H PTT Ratio 2.0 Fibrinogen 556 H D-Dimer 990 H* Sodium Potassium Chloride Carbon Dioxide Anion Gap BUN Creatinine Est Cr Clr Drug Dosing Est GFR ( Amer) Est GFR (Non-Af Amer) BUN/Creatinine Ratio Glucose Calcium Total Bilirubin AST ALT Alkaline Phosphatase Troponin I High Sens 45.4 H C-Reactive Protein Total Protein Albumin Globulin Albumin/Globulin Ratio Procalcitonin 2.84 H Urine Color Urine Appearance Urine pH Ur Specific [place] Urine Protein Urine Glucose (UA) Urine Ketones Urine Blood Urine Nitrite Urine Bilirubin Urine Urobilinogen Ur Leukocyte Esterase Urine WBC (Auto) Urine RBC (Auto) U Hyaline Cast (Auto) U Epithel Cells (Auto) Urine Bacteria (Auto) Urine Yeast Nasal Screen MRSA (PCR) Random Vancomycin Adenovirus (PCR) Not Detected B. pertussis DNA (PCR) Not Detected B.parapertussis DNA PCR Not Detected C. pneumoniae DNA (PCR) Not Detected Coronavirus OC43 (PCR) Not Detected Coronavirus HKU1 (PCR) Not Detected Coronavirus 229E (PCR) Not Detected SARS-CoV-2 (PCR) Not Detected Coronavirus NL63 (PCR) Not Detected Human Metapneumovir PCR Not Detected Influenza Type A (PCR) Not Detected Influenza Type B (PCR) Not Detected M. pneumoniae (PCR) Not Detected Parainfluenza 1 (PCR) Not Detected Parainfluenza 2 (PCR) Not Detected Parainfluenza 3 (PCR) Not Detected Parainfluenza 4 (PCR) Not Detected RSV (PCR) Not Detected Entero/Rhino (PCR) Not Detected Staphylococcus sp PCR DETECTED A mecA/C-Methicil Resis Gene DETECTED A Staph epidermidis (PCR) DETECTED A Bld Cult ID Panel PCR See PCR Comment 04/01/23 04/01/23 04/01/23 19:30 20:59 21:15 WBC 5.52 RBC 2.82 L Hgb 8.6 L Hct 25.3 L MCV 89.7 MCH 30.5 MCHC 34.0 RDW Std Deviation 52.6 H RDW Coeff of Berto 16.1 H Plt Count 35 L Immature Gran % (Auto) Neut % (Auto) Lymph % (Auto) Ripley % (Auto) Eos % (Auto) Baso % (Auto) Neut # (Auto) Lymph # (Auto) [place] # (Auto) Eos # (Auto) Baso # (Auto) Immature Gran # (Auto) Neutrophils % (Manual) Lymphocytes % (Manual) Monocytes % (Manual) Plasma Cell % (Manual) Neutrophils # (Manual) Total Absolute Neuts Lymphocytes # (Manual) Total Abs Lymphocytes Monocytes # (Manual) Plasma Cell # (Manual) Toxic Vacuolation Platelet Estimate Decreased L Polychromasia Tear Drop Cells Ovalocytes ESR PT 34.9 H INR 3.4 H APTT PTT Ratio Fibrinogen D-Dimer Sodium Potassium Chloride Carbon Dioxide Anion Gap BUN Creatinine Est Cr Clr Drug Dosing Est GFR ( Amer) Est GFR (Non-Af Amer) BUN/Creatinine Ratio Glucose Calcium Total Bilirubin AST ALT Alkaline Phosphatase Troponin I High Sens C-Reactive Protein Total Protein Albumin Globulin Albumin/Globulin Ratio Procalcitonin Urine Color Dark Yellow Urine Appearance Cloudy A Urine pH >= 9.0 H Ur Specific [place] 1.016 Urine Protein 3+ H Urine Glucose (UA) Trace H Urine Ketones Trace H Urine Blood 3+ H Urine Nitrite Negative Urine Bilirubin Negative Urine Urobilinogen Negative Ur Leukocyte Esterase 1+ H Urine WBC (Auto) >30 H Urine RBC (Auto) >30 H U Hyaline Cast (Auto) 1-5 U Epithel Cells (Auto) 0-5 Urine Bacteria (Auto) Negative Urine Yeast Not Reportable Nasal Screen MRSA (PCR) Negative Random Vancomycin Adenovirus (PCR) B. pertussis DNA (PCR) B.parapertussis DNA PCR C. pneumoniae DNA (PCR) Coronavirus OC43 (PCR) Coronavirus HKU1 (PCR) Coronavirus 229E (PCR) SARS-CoV-2 (PCR) Coronavirus NL63 (PCR) Human Metapneumovir PCR Influenza Type A (PCR) Influenza Type B (PCR) M. pneumoniae (PCR) Parainfluenza 1 (PCR) Parainfluenza 2 (PCR) Parainfluenza 3 (PCR) Parainfluenza 4 (PCR) RSV (PCR) Entero/Rhino (PCR) Staphylococcus sp PCR mecA/C-Methicil Resis Gene Staph epidermidis (PCR) Bld Cult ID Panel PCR 04/02/23 04/02/23 06:33 08:56 WBC 5.09 RBC 2.77 L Hgb 8.5 L Hct 25.2 L MCV 91.0 MCH 30.7 MCHC 33.7 RDW Std Deviation 54.4 H RDW Coeff of Berto 16.4 H Plt Count 32 L Immature Gran % (Auto) 1.2 Neut % (Auto) 78.5 Lymph % (Auto) 7.7 Ripley % (Auto) 12.4 Eos % (Auto) 0.0 Baso % (Auto) 0.2 Neut # (Auto) 4.00 Lymph # (Auto) 0.39 L [place] # (Auto) 0.63 H Eos # (Auto) 0.00 Baso # (Auto) 0.01 Immature Gran # (Auto) 0.06 Neutrophils % (Manual) Lymphocytes % (Manual) Monocytes % (Manual) Plasma Cell % (Manual) Neutrophils # (Manual) Total Absolute Neuts Lymphocytes # (Manual) Total Abs Lymphocytes Monocytes # (Manual) Plasma Cell # (Manual) Toxic Vacuolation Platelet Estimate Polychromasia 1+ Tear Drop Cells Ovalocytes 1+ ESR 36 H PT 16.2 H INR 1.5 H APTT PTT Ratio Fibrinogen D-Dimer Sodium 138 Potassium 3.6 Chloride 101 Carbon Dioxide 29 Anion Gap 8 BUN 42 H D Creatinine 5.18 H* D Est Cr Clr Drug Dosing 9.7 Est GFR ( Amer) 11.3 Est GFR (Non-Af Amer) 9.8 BUN/Creatinine Ratio 8.1 L Glucose 113 H Calcium 8.1 L Total Bilirubin 1.4 H AST 20 ALT 14 Alkaline Phosphatase 56 Troponin I High Sens C-Reactive Protein 11.39 H Total Protein 5.8 L Albumin 3.2 L Globulin 2.6 Albumin/Globulin Ratio 1.2 Procalcitonin Urine Color Urine Appearance Urine pH Ur Specific [place] Urine Protein Urine Glucose (UA) Urine Ketones Urine Blood Urine Nitrite Urine Bilirubin Urine Urobilinogen Ur Leukocyte Esterase Urine WBC (Auto) Urine RBC (Auto) U Hyaline Cast (Auto) U Epithel Cells (Auto) Urine Bacteria (Auto) Urine Yeast Nasal Screen MRSA (PCR) Random Vancomycin 13.4 Adenovirus (PCR) B. pertussis DNA (PCR) B.parapertussis DNA PCR C. pneumoniae DNA (PCR) Coronavirus OC43 (PCR) Coronavirus HKU1 (PCR) Coronavirus 229E (PCR) SARS-CoV-2 (PCR) Coronavirus NL63 (PCR) Human Metapneumovir PCR Influenza Type A (PCR) Influenza Type B (PCR) M. pneumoniae (PCR) Parainfluenza 1 (PCR) Parainfluenza 2 (PCR) Parainfluenza 3 (PCR) Parainfluenza 4 (PCR) RSV (PCR) Entero/Rhino (PCR) Staphylococcus sp PCR mecA/C-Methicil Resis Gene Staph epidermidis (PCR) Bld Cult ID Panel PCR PG Care Time/CCT Total # of Minutes Spent Total Time Spent with Patient: Total time spent is greater than 50% in coordination of care (as documented) at patient's floor/unit and/or counseling patient: Coding Level of Care Code 03376 SUB INP/OBS CARE 3/50MIN Diagnoses ESRD (end stage renal disease) N18.6 Acute respiratory failure with hypoxia J96.01 Pneumonia J18.9 Laterality: unspecified laterality Lung location: unspecified part of lung Pneumonia type: due to unspecified organism Pulmonary edema J81.0 Chronicity: acute H/O stem cell transplant Z94.84 (3) Pneumonia Laterality: unspecified laterality Lung location: unspecified part of lung Pneumonia type: due to unspecified organism Qualified Code(s): J18.9 - Pneumonia, unspecified organism (4) Pulmonary edema Chronicity: acute Qualified Code(s): J81.0 - Acute pulmonary edema
--- NOTE | 2023-04-02 12:49 | Hospitalist Progress Note ---
Date of Service April 02, 2023 Assessment & Plan (1) Pneumonia: Plan: Suspected due to increased oxygen requirement although this may just be pulmonary edema, although he appears to have an infection somewhere due to fevers at home with generalized weakness Possible concern for aspiration and will have SLT consult but unless overtly aspirating can have a normal diet pending this Cefepime/doxycycline (2) Acute respiratory failure with hypoxia: Plan: Aim O2 sats > 90% ?pulmonary edema from missed dialysis (although mucus membranes are very dry) ?pneumonia (3) Fever: Plan: Currently afebrile in the ER but recurrent fevers at home Presumed source of pneumonia on admission although be may just be bacteremic from his dialysis catheter Does not meet sepsis criteria on admission Biofire PCR negative Empiric vanc/cefepime/doxycycline as above pending blood culture results (4) Elevated INR: Plan: On for [facility] metallic AVR and a. fib with usual goal per cardiology notes 2-3. No active bleeding suspected but given concurrent platelets 35 in addition to INR > 8 this warrants treatment Vitamin K 2.5mg IV, repeat INR later today to check coming down, restart warfarin once < 3.5 Usual warfarin dosing 1mg x2 days, 0.5mg all other days but recently increased to 1mg x3 days, 0.5mg all other days (5) Thrombocytopenia: Plan: Suspect underlying infection leading to this D-dimer and fibrinogen added to labs to monitor concern for DIC Tranfusion threshold for Plt < 20 or < 50 if actively bleeding (6) Hemodialysis patient: Plan: Consult nephrology - discussed with Dr Wheeler and patient will have dialysis today using his catheter (7) Paroxysmal atrial fibrillation: Plan: Currently in NSR Anticoagulation on hold as INR supratherapeutic Continue metoprolol tartrate 50mg PO BID (8) H/O stem cell transplant: (9) Indwelling [place] catheter present: Plan: Replaced in the ER, UA pending Restart tamsulosin when stable (10) Bacteremia: Plan: staph bacteremia perm-a cath in place repeat blood cultures iv vancomycin obtain ECHO Plan VTE prophylaxis - supratherapeutic INR, warfarin on hold Diet - dialysis renal Disposition - admit to PCU Admission and Anticipated Discharge Date Admission Date: April 01, 2023 Subjective No acute events overnight. Messi reports feeling weak and tired today. Afebrile overnight. Breathing comfortably. Tolerated HD well yesterday. No complications with treatment. Denies fluid retention or edema. 04/02 Reports feeling better, denies fever Review of Systems Review of Systems: denies fever, chills, denies SOB, denies chest pain , denies abdominal pain, diarrhea Physical Exam Physical Exam: head atraumatic, normocephalic neck supple lungs decreased breath sounds b/l heart S1S2 regular abdomen soft, nontender, BS present extremities no edema neuro alert, awake Results & Data Results & Data Vital Signs (Past 12 Hours) Vital Signs Temp Pulse Resp BP Pulse Ox O2 Del Method O2 Flow Rate 04/02/23 11:32 38.2 C H 82 107/56 L 97 Nasal Cannula 4.0 04/02/23 08:01 Nasal Cannula 4 04/02/23 08:01 37.7 C H 76 19 99/51 L 96 Nasal Cannula 4.0 04/02/23 03:03 36.9 C 65 20 96/49 L 94 Nasal Cannula 4 PG Care Time/CCT Total # of Minutes Spent Total Time Spent with Patient: Total time spent is greater than 50% in coordination of care (as documented) at patient's floor/unit and/or counseling patient: Coding Level of Care Code 90037 SUB INP/OBS CARE 2/35MIN Diagnoses Pneumonia J18.9 Acute respiratory failure with hypoxia J96.01 Fever R50.9 Elevated INR R79.1 Thrombocytopenia D69.6 Hemodialysis patient Z99.2 Paroxysmal atrial fibrillation I48.0 H/O stem cell transplant Z94.84 Indwelling [place] catheter present Z97.8 Bacteremia R78.81
--- NOTE | 2023-04-02 17:24 | XCELERA ---
[id number]
[2023-04-03 07:24] LABS: Hematocrit (blood only) 23.7 % (42.0-52.0); Hemoglobin 8.1 g/dl (14.0-18.0); Mean Corpuscular Hemoglobin 30.1 pg (25.0-34.0); Mean Corpuscular Hgb Conc 34.2 g/dL (32.0-36.0); Mean Corpuscular Volume 88.1 fL (80.0-100.0); Platelet Count 28 K/uL (130-400); RDW Coefficient of Variation 16.5 % (11.5-14.5); RDW Standard Deviation 52.7 fL (36.4-46.3); Red Blood Count 2.69 M/uL (4.70-6.10); White Blood Count 4.24 K/ul (4.8-10.8)
[2023-04-03 07:42] LABS: Albumin Globulin Ratio 1.1 (0.9-2); Albumin Level 2.9 gm/dl (3.4-5.0); BUN Creatinine Ratio 10.4 (10-20); Bilirubin,Total 1.1 mg/dl (0.2-1.0); Calcium 7.9 mg/dl (8.6-10.3); Creatinine Clr Calc Pharmacy 7.8 ml/min; Est GFR (African American) 8.5 ml/min; Est GFR (Non-African American) 7.4 ml/min; Globulin 2.7 gm/dl (2.5-4.0); Potassium 3.1 mmol/L (3.5-5.1); Total Protein 5.6 gm/dl (6.0-8.3)
[2023-04-03 07:45] LABS: INR 1.2 (0.9-1.1); Prothrombin Time 13.2 Seconds (9.0-12.0)
[2023-04-03] MEDS ORDERED: Nursing to Pharmacy Communication SCH (07:45)
--- NOTE | 2023-04-03 09:01 | Cardiology Consultation ---
Date of Consultation April 03, 2023 Assessment & Plan (1) Shortness of breath: (2) Paroxysmal atrial fibrillation: (3) Chronic anticoagulation: (4) Valvular heart disease: (5) Cardiomyopathy: (6) Acute congestive heart failure: Plan 1. Congestive heart failure: His presentation was consistent with an element of pulmonary vascular congestion. Likely due to a combination of mild LV dysfunction and missing dialysis. Certainly improved after dialysis and volume removal. At this point breathing seems somewhat improved. Volume will be controlled by continue dialysis. 2. Shortness of breath: Likely combination of causes. Pulmonary vascular congestion due to the above-mentioned heart failure and renal failure. Also being treated for pneumonia. There is a concern for an infectious process given his subjective fevers. 3. Cardiomyopathy: He appears to have an element of reduced LV systolic function. This has been documented in the past but not recently. He did not endorse symptoms of chest pain, but he is a poor historian currently. Possibly related to his acute illness. He seems well compensated provided he gets dialysis regularly. We can begin the process of initiating standard medical therapy which would include a change of his metoprolol tartrate to succinate formulation. With stable blood pressures we can add Entresto. Given his renal dysfunction appears to be a poor candidate for spironolactone or an SG LT 2 inhibitor. 4. Mechanical aortic valve: Normal function. No evidence of endocarditis on the echocardiogram, although imaging mechanical valve can be difficult. Far for coag-negative staph. Possibly contaminant. 5. Atrial fibrillation: Currently in sinus rhythm. Patient reports very rare symptoms of palpitations. 6. Mitral regurgitation: Mild to moderate on most recent echocardiogram. Not likely producing any symptoms or hemodynamic compromise at this point. This can be followed over time. 7. Anticoagulation: While the patient is in sinus rhythm at this time, there is a risk of thrombosis associated with his mechanical valve. In the aortic position, this risk is lower but warfarin should be started as soon as possible. If there will be a significant delay and restarting warfarin and achieving therapeutic anticoagulation with warfarin, we should consider bridging with unfractionated heparin as soon as it is safe to start. History of Present Illness Reason for Consultation: Atrial fibrillation, mechanical aortic valve. Requesting Physician: Hilary Attending Physician: Elvi Richard MD History of Present Illness The patient is a 78-year-old gentleman with an extensive past medical history to include aortic valve replacement with mechanical aortic valve, permanent atrial fibrillation, renal failure on renal replacement therapy and multiple myeloma status post bone marrow transplant. It seems that the patient has been confused over the past week. He has also been reports of fevers at home. He apparently missed a dialysis session earlier in this week and was brought to the emergency room due to symptoms of confusion, subjective fevers and breathing difficulty. The patient underwent urgent dialysis and was admitted to the hospital with suspected pneumonia. At the time of my interview the patient was somewhat confused. He occasionally would answer questions appropriately but at times referred to his home being in [place]. He also reported having his INR checked routinely in [place] and flying back and forth for evaluation. He did not report breathing difficulty at this time. He denies significant pain. He states that normally he is able ambulate around his residence. He did not recall any subjective fevers or chills. He denies any coughing. He reported little appetite today and did feel tired. Allergies Allergy/AdvReac Type Severity Reaction Status Date / Time benzonatate Allergy Severe Hallucinati Unverified 04/01/23 14:47 [From Glenroy Billingsley] ng ASHLEY Inhibitors AdvReac Intermediate COUGH Verified 04/01/23 14:47 acetic acid AdvReac Intermediate Vinegar - Verified 04/01/23 14:47 Swelling of Lip/Tongue/Throat Home Medications Medication Instructions Recorded Confirmed Type metoprolol tartrate 50 mg tablet 50 mg PO BID #60 tabs 09/30/22 04/01/23 Rx cholecalciferol (vitamin D3) 50 2,000 mcg PO BID 11/15/22 04/01/23 History mcg (2,000 unit) capsule (Vitamin D3) sevelamer carbonate 800 mg tablet 800 mg PO TIDM 11/15/22 04/01/23 History simvastatin 20 mg tablet 20 mg PO HS 11/15/22 04/01/23 History warfarin 5 mg tablet See Rx Instructions .Route .COMPLEX 11/15/22 04/01/23 History vit B complx, C-iron 8 mg-folic 1 tab PO DAILY 01/01/23 04/01/23 History acid 800 mcg-D3 1,000 unit-zinc tablet (ProRenal) loperamide 2 mg capsule 2 mg PO Q3H PRN loose stool #30 01/07/23 04/01/23 Rx caps tamsulosin 0.4 mg capsule 0.4 mg PO HS #30 caps 03/01/23 04/01/23 Rx alprazolam 0.25 mg tablet (Xanax) 0.25 mg PO .COMPLEX #30 tabs 03/31/23 04/01/23 Rx amoxicillin 500 mg capsule 2,000 mg PO ONCE PRN dental 04/01/23 04/01/23 History appointment [id number] 1 cap PO QID 04/01/23 04/01/23 History 36,000-114,000-180,000 unit capsule,delay rel (Creon) Patient History Medical History (Updated 04/08/23 @ 10:44 by Yesi Cortes MD) Anemia Hypotension ESRD (end stage renal disease) Indwelling Chandler catheter present Hemodialysis patient Tuesday//Tuesday [facility]. Depression Anxiety Chronic anticoagulation Paroxysmal atrial fibrillation managed with medication. no cardioversion. follows with Kip Artem Thrombocytopathia Hypocalcemia Chronic kidney disease Pancreatic lesion (benign) Hypokalemia Secondary hyperparathyroidism Diarrhea chronic Multiple myeloma dx 2013, treated with a stem cell transplant and chemotherapy. last chemo treatment in 2013. currently in remission. Hypertension Dyslipidemia Surgical History History of cystoscopy History of ERCP pancreatic biopsy History of colonoscopy History of tonsillectomy Permanent central venous catheter in place (08/26/22) Insertion of Perm Catheter, Right Internal Jugular Approach, Ultrasound Localization of Right Interanl Jugular vein, Fluoroscopy for Positioning(Right) - Ben Delgado DO H/O stem cell transplant S/P AVR (aortic valve replacement) (~1995) with repair of the AAA that was incidentally found. 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 He was easily arousable and answer questions although he appeared confused and his answers were inappropriate at times. HEENT: Pupils are equal and reactive to light and accommodation. Extraocular movements are intact. The sclerae are anicteric. Neuro: Cranial nerves intact Chest: Dialysis catheter in the right subclavian area. Lungs: Apices are clear. Some reduced breath sounds at the right base. No rales. No expiratory wheezing. Normal respiratory effort. Cardiac: Heart demonstrates a regular rhythm. Normal S1 and loud mechanical S2. Crescendo systolic murmur of variable intensity. Pulses: Diminished radial pulses bilaterally. Extremities: There was no evidence of hypoperfusion. There is no cyanosis or clubbing. There is no edema. Av fistula in the right upper arm Skin: I did not appreciate any rashes on examination today. Results & Data Vital Signs (Past 12 Hours) Vital Signs Temp Pulse Pulse Resp BP Pulse Ox O2 Del Method 04/03/23 07:12 36.5 C 73 20 98/42 L 100 Nasal Cannula 04/03/23 05:45 39.3 C H 04/03/23 04:59 38.3 C H 04/03/23 03:53 38.4 C H 87 20 113/48 L 96 Nasal Cannula 04/03/23 00:36 81 04/02/23 23:10 37.9 C H 91 H 20 116/49 L 98 Nasal Cannula O2 Flow Rate 04/03/23 07:12 3 04/03/23 05:45 04/03/23 04:59 04/03/23 03:53 3.0 04/03/23 00:36 04/02/23 23:10 3 Laboratory Results Abnormal Lab Results 04/02/23 04/03/23 08:56 06:59 WBC 4.24 L RBC 2.69 L Hgb 8.1 L Hct 23.7 L MCV 88.1 MCH 30.1 MCHC 34.2 RDW Std Deviation 52.7 H RDW Coeff of Berto 16.5 H Plt Count 28 L* PT 13.2 H INR 1.2 H Sodium 134 L Potassium 3.1 L Chloride 99 Carbon Dioxide 25 Anion Gap 10 BUN 68 H D Creatinine 6.53 H* D Est Cr Clr Drug Dosing 7.8 Est GFR ( Amer) 8.5 Est GFR (Non-Af Amer) 7.4 BUN/Creatinine Ratio 10.4 Glucose 171 H Calcium 7.9 L Total Bilirubin 1.1 H AST 21 ALT 15 Alkaline Phosphatase 67 Total Protein 5.6 L Albumin 2.9 L Globulin 2.7 Albumin/Globulin Ratio 1.1 Random Vancomycin 13.4 17.2 Diagnostic Findings 04/02/2023: Moderately reduced LV systolic function with ejection fraction 35- 40%. Mildly dilated right ventricle with moderately reduced systolic function. Normally functioning mechanical aortic valve. Mild to moderate mitral regurgitation. Elevated pulmonary pressures moderate dilation of the inferior vena cava. Admission revealed cardiomegaly with pulmonary edema and layering pleural effusions with bibasilar consolidation. ECG Additional Comments: Time admission revealed a sinus rhythm. PG Care Time/CCT Total # of Minutes Spent Total Time Spent with Patient: Total time spent is greater than 50% in coordination of care (as documented) at patient's floor/unit and/or counseling patient: Coding Level of Care Code 23292 INT INP/OBS CARE 3/75MIN Diagnoses Shortness of breath R06.02 Paroxysmal atrial fibrillation I48.0 Chronic anticoagulation Z79.01 Valvular heart disease I38 Cardiomyopathy I42.9 Acute congestive heart failure I50.9
[2023-04-03] MEDS: levoFLOXacin/D5W 750 MG/150 ML BAG IV SCH (09:46)
[2023-04-03] MEDS: SODIUM CHLORIDE 0.9% 500 ML IV ONE (11:27)
[2023-04-03] MEDS: SODIUM CHLORIDE 0.9% 500 ML IV SCH (12:39)
--- NOTE | 2023-04-03 13:31 | Hospitalist Progress Note ---
Date of Service April 03, 2023 Assessment & Plan (1) Pneumonia: Plan: Suspected due to increased oxygen requirement although this may just be pulmonary edema, although he appears to have an infection somewhere due to fevers at home with generalized weakness Possible concern for aspiration and will have SLT consult but unless overtly aspirating can have a normal diet pending this suspect aspiration video swallow on Tuesday on Levaquin (2) Acute respiratory failure with hypoxia: Plan: Aim O2 sats > 90% ?pulmonary edema from missed dialysis (although mucus membranes are very dry) ?pneumonia continue oxygen , HD (3) Fever: Plan: Currently afebrile in the ER but recurrent fevers at home Presumed source of pneumonia on admission although be may just be bacteremic from his dialysis catheter Does not meet sepsis criteria on admission Biofire PCR negative blood culture Coag negative staph , probably contamination urine culture is pending (4) Elevated INR: Plan: On for [facility] metallic AVR and a. fib with usual goal per cardiology notes 2-3. No active bleeding suspected but given concurrent platelets 35 in addition to INR > 8 this warrants treatment Vitamin K 2.5mg IV, repeat INR later today to check coming down, restart warfarin once < 3.5 Usual warfarin dosing 1mg x2 days, 0.5mg all other days but recently increased to 1mg x3 days, 0.5mg all other days INR 1.2 , plt 28, coumadin on hold, can not use Heparin due to Plt 28 hem/onc consulted (5) Thrombocytopenia: Plan: Suspect underlying infection leading to this D-dimer and fibrinogen added to labs to monitor concern for DIC Tranfusion threshold for Plt < 20 or < 50 if actively bleeding sepsis , antibiotics plt 28, no signa of bleeding (6) Hemodialysis patient: Plan: Consult nephrology - discussed with Dr Wheeler and patient will have dialysis today using his catheter 04/03 HD tomorrow (7) Paroxysmal atrial fibrillation: Plan: Currently in NSR Anticoagulation on hold as INR supratherapeutic Continue metoprolol tartrate 50mg PO BID 04/03 hold Metoprolol due to hypotension , hold Coumadin due to low PLT (8) H/O stem cell transplant: Plan: hem/onc consulted (9) Indwelling Chandler catheter present: Plan: Replaced in the ER, UA pending Restart tamsulosin when stable (10) Bacteremia: Plan: staph bacteremia, coag negative , probably contamination perm-a cath in place repeat blood cultures hold Vancomycin ECHO no obvious vegetation (11) Severe sepsis: Plan: unclear etiology , ? pneumonia, HD cath infection blood culture is positive for coag negative staph received Vancomycin , Cefepime transition to Levaquin due to thrombocytopenia IV fluids given, still hypotensive transfer to ICU for pressoros (12) Cardiomyopathy: Plan: EF 35 -40 % probably has CHF acute systolic continue HD cardiology follows Plan VTE prophylaxis - supratherapeutic INR, warfarin on hold Diet - dialysis renal Disposition - admit to PCU Admission and Anticipated Discharge Date Admission Date: April 01, 2023 Subjective No acute events overnight. Messi reports feeling weak and tired today. Afebrile overnight. Breathing comfortably. Tolerated HD well yesterday. No complications with treatment. Denies fluid retention or edema. 04/02 Reports feeling better, denies fever 04/03 somnolent, BP is low, does not want to eat , BP is low after 1l of NS , accepted to ICU Review of Systems Review of Systems: denies fever, chills, denies SOB, denies chest pain , denies abdominal pain, diarrhea Physical Exam Physical Exam: head atraumatic, normocephalic neck supple lungs decreased breath sounds b/l heart S1S2 regular abdomen soft, nontender, BS present extremities no edema neuro alert, awake Results & Data Results & Data Vital Signs (Past 12 Hours) Vital Signs Temp Pulse Pulse Resp BP Pulse Ox O2 Del Method 04/03/23 13:11 64 87/42 L 04/03/23 12:13 65 16 86/40 L 91 Nasal Cannula 04/03/23 10:53 36.5 C 68 18 86/40 L 100 Nasal Cannula 04/03/23 10:00 Nasal Cannula 04/03/23 07:12 36.5 C 73 20 98/42 L 100 Nasal Cannula 04/03/23 05:45 39.3 C H 04/03/23 04:59 38.3 C H 04/03/23 03:53 38.4 C H 87 20 113/48 L 96 Nasal Cannula O2 Flow Rate 04/03/23 13:11 04/03/23 12:13 3 04/03/23 10:53 3 04/03/23 10:00 3 04/03/23 07:12 3 04/03/23 05:45 04/03/23 04:59 04/03/23 03:53 3.0 PG Care Time/CCT Total # of Minutes Spent Total Time Spent with Patient: Total time spent is greater than 50% in coordination of care (as documented) at patient's floor/unit and/or counseling patient: Coding Level of Care Code 58008 SUB INP/OBS CARE 3/50MIN Diagnoses Pneumonia J18.9 Pneumonia type: aspiration pneumonia Acute respiratory failure with hypoxia J96.01 Fever R50.9 Elevated INR R79.1 Thrombocytopenia D69.6 Hemodialysis patient Z99.2 Paroxysmal atrial fibrillation I48.0 H/O stem cell transplant Z94.84 Indwelling Chandler catheter present Z97.8 Bacteremia R78.81 Severe sepsis A41.9; R65.20 Cardiomyopathy I42.9 (1) Pneumonia Pneumonia type: aspiration pneumonia
--- NOTE | 2023-04-03 15:12 | Critical Care Consultation ---
Date of Consultation April 03, 2023 Assessment & Plan (1) Severe sepsis: Continue abx and prn fluid boluses. Systolic BP improving with fluid administration. No signs of end organ damage or tissue hypoxemia at this time. Suspect thrombocytopenia is sepsis induced. (2) Cardiomyopathy: (3) Hypotension: (4) Thrombocytopenia: History of Present Illness Reason for Consultation: Hypotension Attending Physician: Elvi Richard MD History of Present Illness 78-year-old male with a past medical history of ESRD and cardiomyopathy who this morning had episodes of hypotension with systolics in the 70s. He received a bolus of 500 cc of crystalloid x 2 with improvement of his systolic blood pressure in the 190s. He denies any complaints and is mentating well. He is on 3 L of oxygen saturating in the mid 90s. He is receiving Zosyn. Allergies Allergy/AdvReac Type Severity Reaction Status Date / Time benzonatate Allergy Severe Hallucinati Unverified 04/01/23 14:47 [From Glenroy Billingsley] ng ASHLEY Inhibitors AdvReac Intermediate COUGH Verified 04/01/23 14:47 acetic acid AdvReac Intermediate Vinegar - Verified 04/01/23 14:47 Swelling of Lip/Tongue/Throat Home Medications Medication Instructions Recorded Confirmed Type metoprolol tartrate 50 mg tablet 50 mg PO BID #60 tabs 09/30/22 04/01/23 Rx cholecalciferol (vitamin D3) 50 2,000 mcg PO BID 11/15/22 04/01/23 History mcg (2,000 unit) capsule (Vitamin D3) sevelamer carbonate 800 mg tablet 800 mg PO TIDM 11/15/22 04/01/23 History simvastatin 20 mg tablet 20 mg PO HS 11/15/22 04/01/23 History warfarin 5 mg tablet See Rx Instructions .Route .COMPLEX 11/15/22 04/01/23 History vit B complx, C-iron 8 mg-folic 1 tab PO DAILY 01/01/23 04/01/23 History acid 800 mcg-D3 1,000 unit-zinc tablet (ProRenal) loperamide 2 mg capsule 2 mg PO Q3H PRN loose stool #30 01/07/23 04/01/23 Rx caps tamsulosin 0.4 mg capsule 0.4 mg PO HS #30 caps 03/01/23 04/01/23 Rx alprazolam 0.25 mg tablet (Xanax) 0.25 mg PO .COMPLEX #30 tabs 03/31/23 04/01/23 Rx amoxicillin 500 mg capsule 2,000 mg PO ONCE PRN dental 04/01/23 04/01/23 History appointment [id number]-[id number]-[id number] 1 cap PO QID 04/01/23 04/01/23 History 36,000-114,000-180,000 unit capsule,delay rel (Creon) Patient History Medical History (Updated 04/03/23 @ 15:22 by Abebe Johns MD) Hypotension ESRD (end stage renal disease) Indwelling Chandler catheter present Hemodialysis patient Tuesday//Tuesday [facility]. Depression Anxiety Chronic anticoagulation Paroxysmal atrial fibrillation managed with medication. no cardioversion. follows with Jm Mcgill Thrombocytopathia Hypocalcemia Chronic kidney disease Pancreatic lesion (benign) Hypokalemia Secondary hyperparathyroidism Diarrhea chronic Multiple myeloma dx 2013, treated with a stem cell transplant and chemotherapy. last chemo treatment in 2013. currently in remission. Hypertension Dyslipidemia Anemia Surgical History History of cystoscopy History of ERCP pancreatic biopsy History of colonoscopy History of tonsillectomy Permanent central venous catheter in place (08/26/22) Insertion of Perm Catheter, Right Internal Jugular Approach, Ultrasound Localization of Right Interanl Jugular vein, Fluoroscopy for Positioning(Right) - Ben Delgado DO H/O stem cell transplant S/P AVR (aortic valve replacement) (~1995) with repair of the AAA that was incidentally found. Family History Mother Alzheimer disease Sister Breast cancer Father Myocardial infarction Denies family history of Ovarian cancer Prostate cancer Colorectal cancer Social History Smoking Status: Never smoker Second Hand Exposure: No; Do You Dip or Chew Tobacco: No; Tobacco Cessation Education Requested by Patient: No Hx Alcohol Use: No Hx Substance Use: No Preferred Language: Moroccan Communication Ability: Effective Visual Impairment: No Limitations Coloring Room Man Required: No Beliefs That Will Affect Care: None marital status: Current Living Situation: Spouse Current Living Situation Comment: with current occupational status: employed 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 Patient is in no apparent distress. Patient is well-developed. Eyes: Pupils are equal round and reactive to light. Conjunctivae are normal. Anicteric sclera. Ears nose, mouth and throat: Mallampati class 2. Normal posterior oropharynx. Uvula is midline. Neck: Trachea is midline. Visual inspection is normal. Respiratory: Clear to auscultation bilaterally. No use of accessory muscles. No significant clubbing noted. Cardiovascular: Regular rate and rhythm. No murmurs. No edema. Gastrointestinal: Normal bowel sounds, soft, nontender and nondistended. No hepatosplenomegaly noted. Musculoskeletal: No cyanosis. Patient is able to move all extremities. Strength is 5 out of 5 in the upper and lower extremities. Skin: No rashes, warm dry and intact. Neurologic: No obvious focal neurological deficits seen. Psychiatric: Alert and oriented x3 with a euthymic affect. Results & Data Results & Data Vital Signs (Past 12 Hours) Vital Signs Temp Pulse Pulse Resp BP Pulse Ox O2 Del Method 04/03/23 13:54 67 18 95/47 L 96 Nasal Cannula 04/03/23 13:42 62 18 96/42 L 94 Nasal Cannula 04/03/23 13:11 64 87/42 L 04/03/23 12:13 65 16 86/40 L 91 Nasal Cannula 04/03/23 10:53 36.5 C 68 18 86/40 L 100 Nasal Cannula 04/03/23 10:00 Nasal Cannula 04/03/23 07:12 36.5 C 73 20 98/42 L 100 Nasal Cannula 04/03/23 05:45 39.3 C H 04/03/23 04:59 38.3 C H 04/03/23 03:53 38.4 C H 87 20 113/48 L 96 Nasal Cannula O2 Flow Rate 04/03/23 13:54 3 04/03/23 13:42 3 04/03/23 13:11 04/03/23 12:13 3 04/03/23 10:53 3 04/03/23 10:00 3 04/03/23 07:12 3 04/03/23 05:45 04/03/23 04:59 04/03/23 03:53 3.0 Coding Level of Care Code 56036 IN/OBS CONSULT LVL 3,45M Diagnoses Severe sepsis A41.9; R65.20 Cardiomyopathy I42.9 Hypotension I95.9 Thrombocytopenia D69.6
--- NOTE | 2023-04-03 15:25 | Oncology Consultation ---
Date of Consultation April 03, 2023 Assessment & Plan (1) Thrombocytopenia: At this point the most direct cause for the patient's thrombocytopenia seems to be in the underlying sepsis. I will recommend a comprehensive workup for the thrombocytopenia including a peripheral smear consult will rule out consumptive coagulopathy like TTP/microangiopathic hemolytic anemia. I will also recommend holding anticoagulation while the platelet count is less than 30,000/mcL given the significant risk of bleeding. Transfuse if the platelets drop less than 10,000/mcL of the patient actively bleeds. (2) Normocytic normochromic anemia: Multifactorial, most likely result of anemia of chronic disease and the fact that the patient is on chronic dialysis. Will recommend blood transfusion if the hemoglobin drops below 7 g/dL (3) Coumadin toxicity: At this point his INR has improved, the latest INR is 1.2. However would recommend holding anticoagulation while the platelet count is less than 30,000 even though he has significant valvular heart disease. (4) Multiple myeloma in remission: Multiple myeloma seems to be under control for a long time. I would check if he has a commander internal affairs who he is following with regularly and his myeloma labs are being checked regularly. At this point would not recommend a workup while he is acutely ill and admitted to in the hospital. If needed we can assess for myeloma status once the patient is discharged. Plan Thank you for this interesting hematological consult. Hematology will continue to follow the patient make appropriate recommendations. History of Present Illness Reason for Consultation: 1. Thrombocytopenia 2. Normocytic normochromic anemia 3. History of MM Attending Physician: Elvi Richard MD History of Present Illness The patient is a very pleasant 78-year-old gentleman with a past history of end- stage renal disease, currently on dialysis who presented to [facility] ER with fever and generalized weakness. Per the records his symptoms started on Tuesday and subsequently continued to get more fatigued. His he had a Tmax of 101. He came to the ED and there was suspected that he was having a pneumonia. Of note he is on chronic anticoagulation with Eliquis, and the recommended INR is 2-3 because of mechanical aortic valve. At presentation his INR was supposed to be two 9.4. Of note he also has a history of multiple myeloma, he underwent stem cell transplantation in 2013 and since then has not been on any other treatment. His baseline platelet count last year was greater than 100,000/mcL. On presentation his platelet count was 35,000/mcL. His hemoglobin on presentation was 10.0/g/dL. Which is close to baseline however has declined to 8.1 g/dL. Hematology has been consulted to assist in management of this patient who has chronic anticoagulation need, presented with elevated INR, has significant thrombocytopenia, has normocytic normochromic anemia. He also has a history of multiple myeloma Allergies Allergy/AdvReac Type Severity Reaction Status Date / Time benzonatate Allergy Severe Hallucinati Unverified 04/01/23 14:47 [From Glenroy Billingsley] ng ASHLEY Inhibitors AdvReac Intermediate COUGH Verified 04/01/23 14:47 acetic acid AdvReac Intermediate Vinegar - Verified 04/01/23 14:47 Swelling of Lip/Tongue/Throat Home Medications Medication Instructions Recorded Confirmed Type metoprolol tartrate 50 mg tablet 50 mg PO BID #60 tabs 09/30/22 04/01/23 Rx cholecalciferol (vitamin D3) 50 2,000 mcg PO BID 11/15/22 04/01/23 History mcg (2,000 unit) capsule (Vitamin D3) sevelamer carbonate 800 mg tablet 800 mg PO TIDM 11/15/22 04/01/23 History simvastatin 20 mg tablet 20 mg PO HS 11/15/22 04/01/23 History warfarin 5 mg tablet See Rx Instructions .Route .COMPLEX 11/15/22 04/01/23 History vit B complx, C-iron 8 mg-folic 1 tab PO DAILY 01/01/23 04/01/23 History acid 800 mcg-D3 1,000 unit-zinc tablet (ProRenal) loperamide 2 mg capsule 2 mg PO Q3H PRN loose stool #30 01/07/23 04/01/23 Rx caps tamsulosin 0.4 mg capsule 0.4 mg PO HS #30 caps 03/01/23 04/01/23 Rx alprazolam 0.25 mg tablet (Xanax) 0.25 mg PO .COMPLEX #30 tabs 03/31/23 04/01/23 Rx amoxicillin 500 mg capsule 2,000 mg PO ONCE PRN dental 04/01/23 04/01/23 History appointment aprhsb-[id number]-[id number] 1 cap PO QID 04/01/23 04/01/23 History 36,000-114,000-180,000 unit capsule,delay rel (Creon) Patient History Medical History (Updated 04/03/23 @ 15:29 by Aroldo Espinoza MD) Hypotension ESRD (end stage renal disease) Indwelling Chandler catheter present Hemodialysis patient Tuesday//Tuesday [facility]. Depression Anxiety Chronic anticoagulation Paroxysmal atrial fibrillation managed with medication. no cardioversion. follows with Kip Artem Thrombocytopathia Hypocalcemia Chronic kidney disease Pancreatic lesion (benign) Hypokalemia Secondary hyperparathyroidism Diarrhea chronic Multiple myeloma dx 2013, treated with a stem cell transplant and chemotherapy. last chemo treatment in 2013. currently in remission. Hypertension Dyslipidemia Anemia Surgical History History of cystoscopy History of ERCP pancreatic biopsy History of colonoscopy History of tonsillectomy Permanent central venous catheter in place (08/26/22) Insertion of Perm Catheter, Right Internal Jugular Approach, Ultrasound Localization of Right Interanl Jugular vein, Fluoroscopy for Positioning(Right) - Ben Delgado DO H/O stem cell transplant S/P AVR (aortic valve replacement) (~1995) with repair of the AAA that was incidentally found. Family History Mother Alzheimer disease Sister Breast cancer Father Myocardial infarction Denies family history of Ovarian cancer Prostate cancer Colorectal cancer Social History Smoking Status: Never smoker Second Hand Exposure: No; Do You Dip or Chew Tobacco: No; Tobacco Cessation Education Requested by Patient: No Hx Alcohol Use: No Hx Substance Use: No Preferred Language: Malaysian Communication Ability: Effective Visual Impairment: No Limitations Kiln Operator Helper Required: No Beliefs That Will Affect Care: None marital status: Current Living Situation: Spouse Current Living Situation Comment: with current occupational status: employed 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 Other Information That Helps Us Care for You: No Feels Safe at Home: Yes Safety Concerns: Feels Safe At This Time Childhood Exposure to Second-Hand Smoke: No Diet: low salt Dental Care, Regularly: Yes Physical Activity Frequency: 1-2 Times per Week Physical Activity Frequency Comment: walk Seatbelt Use: always Sunscreen Use: Yes Assistive Devices: Cane and Walker Review of Systems Review of Systems: All systems reviewed & are unremarkable except as noted in HPI & below Constitutional: as per Subjective / HPI Eyes: as per Subjective / HPI Ear, Nose, Mouth, Throat: as per Subjective / HPI Cardiovascular: as per Subjective / HPI Gastrointestinal: as per Subjective / HPI Genitourinary: + as per Subjective / HPI Integumentary: as per Subjective / HPI Psychiatric: as per Subjective / HPI Endocrine: as per Subjective / HPI Hematologic / Lymphatic: as per Subjective / HPI Physical Exam Constitutional: WD/WN, vitals as above Eyes: PERRL, conjunctivae normal, anicteric sclerae ENMT: external ear and nose normal, oropharynx normal Neck: trachea midline, no thyromegaly Respiratory: normal respiratory effort, lungs clear to auscultation Cardiovascular: RRR, no murmur, no edema Gastrointestinal (Abdomen): normal bowel sounds, soft, nontender, no hepatosplenomegaly Musculoskeletal: no cyanosis or clubbing, extremities motor strength 5/5 Skin: no rashes, warm and dry Neurologic: patellar DTR's 2+ bilat, sensation intact Psychiatric: A+Ox3, euthymic affect Results & Data Vital Signs (Past 12 Hours) Vital Signs Temp Pulse Pulse Resp BP Pulse Ox O2 Del Method 04/03/23 15:12 36.9 C 78 18 94/44 L 100 Nasal Cannula 04/03/23 13:54 67 18 95/47 L 96 Nasal Cannula 04/03/23 13:42 62 18 96/42 L 94 Nasal Cannula 04/03/23 13:11 64 87/42 L 04/03/23 12:13 65 16 86/40 L 91 Nasal Cannula 04/03/23 10:53 36.5 C 68 18 86/40 L 100 Nasal Cannula 04/03/23 10:00 Nasal Cannula 04/03/23 07:12 36.5 C 73 20 98/42 L 100 Nasal Cannula 04/03/23 05:45 39.3 C H 04/03/23 04:59 38.3 C H 04/03/23 03:53 38.4 C H 87 20 113/48 L 96 Nasal Cannula O2 Flow Rate 04/03/23 15:12 3 04/03/23 13:54 3 04/03/23 13:42 3 04/03/23 13:11 04/03/23 12:13 3 04/03/23 10:53 3 04/03/23 10:00 3 04/03/23 07:12 3 04/03/23 05:45 04/03/23 04:59 04/03/23 03:53 3.0
--- NOTE | 2023-04-03 16:49 | Nephrology Progress Note ---
Date of Service April 03, 2023 Assessment & Plan (1) ESRD (end stage renal disease): Plan: Completed HD Tuesday. IVF provided for hypotension this AM. Signs of active sepsis. No additional HD today. Anticipate next HD tomorrow for additional UF/clearance. Medications are appropriate for kidney function. TDC used for HD Tuesday. However, AVG is acceptable for use. Messi has expressed concerns/anxiety regarding AVG due to recent infiltration. The graft has a good thrill and bruit and should be ok for use. Will attempt AVG with next HD. AVF placed by Dr. Oshea on 11.26.22. Outpatient Rx is TTS 3.5 hrs, 400/800, 3K, 137Na. EDW 64.5 kg. Renal diet. Sevelamer QAC. (2) Acute respiratory failure with hypoxia: Plan: Attributed to pneumonia. Improved to 3 L NC. (3) Pneumonia: Plan: Remains on cefepime. Received vancomycin on admission. Blood cultures 1/2 on admission with coag negative staff. Follow up cultures NGTD. Critical care consultation pending. (4) H/O stem cell transplant: Plan: History of multiple myeloma in remission. Thrombocytopenia noted. This has been attributed to sepsis. Hematology consultation completed thsi AM. Admission and Anticipated Discharge Date Admission Date: April 01, 2023 Subjective Tmax 39.3. Confusion noted overnight into the morning. Messi was somnolent this morning when I went to see him. He has been persistently hypotensive. No signs of bleeding reported. When he awoke, he answered by questions without difficulty. He denied pain. He denied shortness of breath. No chest pains or palpitations reported. Review of Systems Review of Systems: All systems reviewed & are unremarkable except as noted in HPI & below Physical Exam Constitutional: well developed, + ill appearing and + frail appearing; no acute distress Eyes: + anicteric sclerae; no conjunctival abn ormality ENMT: Mouth: + dry oral mucous membranes Respiratory: normal respiratory effort; no respiratory distress Auscultation: + rhonchi; no wheezes Cardiovascular: Rate/Rhythm: regular rate and regular rhythm Heart Sounds: no murmur Extremities: normal capillary refill and + AV fistula (LUE BC AVG); no edema Musculoskeletal: no cyanosis or clubbing, extremities motor strength 5/5 Skin: normal turgor; no jaundice Neurologic: moves all extremities and awake Psychiatric: Orientation: alert, oriented to person and oriented to place Results & Data Vital Signs (Past 12 Hours) Vital Signs Temp Pulse Pulse Resp BP Pulse Ox O2 Del Method 04/03/23 15:12 36.9 C 78 18 94/44 L 100 Nasal Cannula 04/03/23 13:54 67 18 95/47 L 96 Nasal Cannula 04/03/23 13:42 62 18 96/42 L 94 Nasal Cannula 04/03/23 13:11 64 87/42 L 04/03/23 12:13 65 16 86/40 L 91 Nasal Cannula 04/03/23 10:53 36.5 C 68 18 86/40 L 100 Nasal Cannula 04/03/23 10:00 Nasal Cannula 04/03/23 07:12 36.5 C 73 20 98/42 L 100 Nasal Cannula 04/03/23 05:45 39.3 C H 04/03/23 04:59 38.3 C H O2 Flow Rate 04/03/23 15:12 3 04/03/23 13:54 3 04/03/23 13:42 3 04/03/23 13:11 04/03/23 12:13 3 04/03/23 10:53 3 04/03/23 10:00 3 04/03/23 07:12 3 04/03/23 05:45 04/03/23 04:59 Laboratory Results Laboratory Results - last 24 hr 04/03/23 04/03/23 06:59 11:18 WBC 4.24 L RBC 2.69 L Hgb 8.1 L Hct 23.7 L MCV 88.1 MCH 30.1 MCHC 34.2 RDW Std Deviation 52.7 H RDW Coeff of Berto 16.5 H Plt Count 28 L* PT 13.2 H INR 1.2 H Sodium 134 L Potassium 3.1 L Chloride 99 Carbon Dioxide 25 Anion Gap 10 BUN 68 H D Creatinine 6.53 H* D Est Cr Clr Drug Dosing 7.8 Est GFR ( Amer) 8.5 Est GFR (Non-Af Amer) 7.4 BUN/Creatinine Ratio 10.4 Glucose 171 H Calcium 7.9 L Total Bilirubin 1.1 H AST 21 ALT 15 Alkaline Phosphatase 67 Total Protein 5.6 L Albumin 2.9 L Globulin 2.7 Albumin/Globulin Ratio 1.1 Random Vancomycin 17.2 14.7 PG Care Time/CCT Total # of Minutes Spent Total Time Spent with Patient: Total time spent is greater than 50% in coordination of care (as documented) at patient's floor/unit and/or counseling patient: Coding Level of Care Code 77520 SUB INP/OBS CARE 3/50MIN Diagnoses ESRD (end stage renal disease) N18.6 Acute respiratory failure with hypoxia J96.01 Pneumonia J18.9 Laterality: unspecified laterality Lung location: unspecified part of lung Pneumonia type: due to unspecified organism H/O stem cell transplant Z94.84 (3) Pneumonia Laterality: unspecified laterality Lung location: unspecified part of lung Pneumonia type: due to unspecified organism Qualified Code(s): J18.9 - Pneumonia, unspecified organism
[2023-04-03] MEDS ORDERED: METOPROLOL TARTRATE 50 MG TAB PO SCH (23:45)
[2023-04-04 06:51] LABS: Hematocrit (blood only) 22.7 % (42.0-52.0); Hemoglobin 7.9 g/dl (14.0-18.0); Mean Corpuscular Hemoglobin 29.9 pg (25.0-34.0); Mean Corpuscular Hgb Conc 34.8 g/dL (32.0-36.0); Platelet Count 22 K/uL (130-400); RDW Coefficient of Variation 16.2 % (11.5-14.5); RDW Standard Deviation 51.2 fL (36.4-46.3); Red Blood Count 2.64 M/uL (4.70-6.10); White Blood Count 3.08 K/ul (4.8-10.8)
[2023-04-04 06:53] LABS: Albumin Globulin Ratio 1.1 (0.9-2); Albumin Level 2.8 gm/dl (3.4-5.0); BUN Creatinine Ratio 11.2 (10-20); Bilirubin,Total 1.6 mg/dl (0.2-1.0); Calcium 7.8 mg/dl (8.6-10.3); Creatinine Clr Calc Pharmacy 7.3 ml/min; Est GFR (African American) 7.6 ml/min; Est GFR (Non-African American) 6.5 ml/min; Globulin 2.6 gm/dl (2.5-4.0); Potassium 3.6 mmol/L (3.5-5.1); Total Protein 5.4 gm/dl (6.0-8.3)
[2023-04-04 07:22] LABS: INR 1.4 (0.9-1.1); Prothrombin Time 15.1 Seconds (9.0-12.0)
--- NOTE | 2023-04-04 10:36 | Nephrology Progress Note ---
Date of Service April 04, 2023 Assessment & Plan (1) ESRD (end stage renal disease): Plan: Orders for HD today entered into the EHR and reviewed with 1st pressman on web press. TDC used for HD at patient insistence. However, AVG is acceptable for use. Messi has expressed concerns/anxiety regarding AVG due to recent infiltration. The graft has a good thrill and bruit and should be ok for use. Will continue education. AVF placed by Dr. Oshea on 11/26/22. Outpatient Rx is TTS 3.5 hrs, 400/800, 3K, 137Na. EDW 64.5 kg. Renal diet. Sevelamer QAC. (2) Acute respiratory failure with hypoxia: Plan: Attributed to pneumonia. Improved to 2 L NC. (3) Pneumonia: Plan: Remains on levofloxacin. (4) H/O stem cell transplant: Plan: History of multiple myeloma in remission. Thrombocytopenia noted. This has been attributed to sepsis. Hematology consultation completed completed yesterday. No heparin with HD. Admission and Anticipated Discharge Date Admission Date: April 01, 2023 Subjective Afebrile overnight. Messi was resting comfortably in bed this AM. He is breathing comfortably. He was seen and evaluated prior to and during hemodialysis. Tolerating HD well. Messi refused needle placement + AVG use. He expressed significant reservations with use of the AVG due to pain experienced with needle placement in the past. He states that topical lidocaine did not provide relief. He states that he will continue to use the TDC. We reviewed the risk of the catheter. We discussed concerns related to infection and sepsis. Messi told me that he would rather stop treatment than use the AVG. Review of Systems Review of Systems: All systems reviewed & are unremarkable except as noted in HPI & below Physical Exam Constitutional: well developed, + ill appearing and + frail appearing; no acute distress Eyes: PERRL, conjunctivae normal, anicteric sclerae + anicteric sclerae; no conjunctival abnormality ENMT: Mouth: + dry oral mucous membranes Respiratory: normal respiratory effort; no respiratory distress Auscultation: + rhonchi; no diminished lung sounds and no wheezes Cardiovascular: Rate/Rhythm: regular rate and regular rhythm Extremities: normal capillary refill and + AV fistula (LUE BC AVG); no calf tenderness, no pedal edema and no edema mechanical aortic valve sound Gastrointestinal (Abdomen): normal bowel sounds, soft, nontender, no hepatosplenomegaly Musculoskeletal: no cyanosis or clubbing, extremities motor strength 5/5 Skin: no rashes, warm and dry (no areas of cellulitis noted) normal turgor; no jaundice Neurologic: moves all extremities and awake; not confused Psychiatric: A+Ox3, euthymic affect Orientation: alert, oriented to person and oriented to place Results & Data Vital Signs (Past 12 Hours) Vital Signs Temp Pulse Pulse Resp BP BP Pulse Ox 04/04/23 10:00 87 97/47 L 04/04/23 09:30 36.6 C 88 04/04/23 07:45 37.6 C H 94 H 20 118/64 96 04/04/23 03:00 37.3 C 94 H 18 115/52 L 91 04/03/23 23:58 86 04/03/23 23:00 36.9 C 89 18 106/49 L 95 O2 Del Method O2 Flow Rate 04/04/23 10:00 04/04/23 09:30 04/04/23 07:45 Nasal Cannula 3.0 04/04/23 03:00 Nasal Cannula 04/03/23 23:58 04/03/23 23:00 Nasal Cannula PG Care Time/CCT Total # of Minutes Spent Total Time Spent with Patient: Total time spent is greater than 50% in coordination of care (as documented) at patient's floor/unit and/or counseling patient: Coding Level of Care Code 21340 SUB INP/OBS CARE 3/50MIN Diagnoses ESRD (end stage renal disease) N18.6 Acute respiratory failure with hypoxia J96.01 Pneumonia J18.9 Laterality: unspecified laterality Lung location: unspecified part of lung Pneumonia type: due to unspecified organism H/O stem cell transplant Z94.84 (3) Pneumonia Laterality: unspecified laterality Lung location: unspecified part of lung Pneumonia type: due to unspecified organism Qualified Code(s): J18.9 - Pneumonia, unspecified organism
--- NOTE | 2023-04-04 15:51 | Hospitalist Progress Note ---
Date of Service April 04, 2023 Assessment & Plan (1) Pneumonia: Plan: Suspected due to increased oxygen requirement although this may just be pulmonary edema, although he appears to have an infection somewhere due to fevers at home with generalized weakness Possible concern for aspiration and will have SLT consult but unless overtly aspirating can have a normal diet pending this suspect aspiration video swallow today Was initially on 5 cefepime but due to thrombocytopenia currently on Levaquin, (2) Acute respiratory failure with hypoxia: Plan: Aim O2 sats > 90% pulmonary edema from missed dialysis (although mucus membranes are very dry) ?pneumonia continue oxygen , HD Currently on 2/oxygen through nasal cannula (3) Fever: Plan: Currently afebrile in the ER but recurrent fevers at home Presumed source of pneumonia on admission although be may just be bacteremic from his dialysis catheter Does not meet sepsis criteria on admission Biofire PCR negative blood culture Coag negative staph , probably contamination urine culture is pending (4) Elevated INR: Plan: On for [facility] metallic AVR and a. fib with usual goal per cardiology notes 2-3. No active bleeding suspected but given concurrent platelets 35 in addition to INR > 8 this warrants treatment Vitamin K 2.5mg IV, repeat INR later today to check coming down, restart warfarin once < 3.5 Usual warfarin dosing 1mg x2 days, 0.5mg all other days but recently increased to 1mg x3 days, 0.5mg all other days INR 1.2 , platelets 22 today, continue to hold Coumadin in view of thrombocytopenia hem/onc consulted (5) Thrombocytopenia: Plan: Suspect underlying infection leading to this D-dimer and fibrinogen added to labs to monitor concern for DIC Tranfusion threshold for Plt < 20 or < 50 if actively bleeding sepsis , antibiotics plt 22, no sign of bleeding (6) Hemodialysis patient: Plan: Continue hemodialysis (7) Paroxysmal atrial fibrillation: Plan: Currently in NSR Anticoagulation on hold as INR supratherapeutic Continue metoprolol tartrate 50mg PO BID hold Coumadin due to low PLT (8) H/O stem cell transplant: Plan: hem/onc consulted (9) Indwelling Chandler catheter present: Plan: Replaced in the ER, UA pending Restart tamsulosin when stable (10) Bacteremia: Plan: staph bacteremia, coag negative , probably contamination perm-a cath in place repeat blood cultures hold Vancomycin ECHO no obvious vegetation (11) Severe sepsis: Plan: unclear etiology , ? pneumonia, HD cath infection blood culture is positive for coag negative staph received Vancomycin , Cefepime transition to Levaquin due to thrombocytopenia (12) Cardiomyopathy: Plan: EF 35 -40 % probably has CHF acute systolic continue HD cardiology follows Plan VTE prophylaxis - supratherapeutic INR, warfarin on hold Diet - dialysis renal Disposition -continue hospitalization Awaiting PT eval Admission and Anticipated Discharge Date Admission Date: April 01, 2023 Subjective Patient seen and examined, just came back from hemodialysis. Denies chest pain or shortness of breath, only endorses poor appetite. Review of Systems Review of Systems: All systems reviewed are negative, apart from the ones contained in the history. Physical Exam Physical Exam: The patient is awake, alert and oriented 3, well developed and well nourished, normocephalic and atraumatic, lying in bed and in no acute distress. HEENT--PERRL, EOMI, mucous membranes and oropharynx mildly dry Neck--supple. No JVD. No bruits. Thyroid normal, trachea midline, no adenopathy. Heart--normal S1 and S2. No murmurs, rubs or gallops. Lungs--clear bilaterally, no respiratory distress, no accessory muscle use. Abdomen--normal bowel sounds and soft. Mild epigastric and left sided abdominal pain Extremities--no cyanosis or clubbing. No edema. Dermatologic--normal skin turgor, normal color, no abnormal lymph nodes, no rash. Neurologic--cranial nerves II through XII grossly intact. Rheumatologic--normal range of motion. Psychiatric--normal affect. Results & Data Results & Data Vital Signs (Past 12 Hours) Vital Signs Temp Pulse Pulse Resp BP BP Pulse Ox 04/04/23 13:44 98.4 F 79 16 116/57 L 99 04/04/23 13:35 97.9 F 75 111/53 L 04/04/23 13:00 74 99/46 L 04/04/23 12:30 75 96/52 L 04/04/23 12:00 80 97/42 L 04/04/23 11:30 80 102/42 L 04/04/23 11:06 04/04/23 11:00 82 91/47 L 04/04/23 10:30 85 94/45 L 04/04/23 10:00 87 97/47 L 04/04/23 09:30 97.9 F 88 04/04/23 07:45 99.7 F H 94 H 20 118/64 96 O2 Del Method O2 Flow Rate 04/04/23 13:44 Nasal Cannula 2 04/04/23 13:35 04/04/23 13:00 04/04/23 12:30 04/04/23 12:00 04/04/23 11:30 04/04/23 11:06 Room Air 04/04/23 11:00 04/04/23 10:30 04/04/23 10:00 04/04/23 09:30 04/04/23 07:45 Nasal Cannula 3.0 PG Care Time/CCT Total # of Minutes Spent Total Time Spent with Patient: Total time spent is greater than 50% in coordination of care (as documented) at patient's floor/unit and/or counseling patient: Coding Level of Care Code 67728 SUB INP/OBS CARE 2/35MIN Diagnoses Pneumonia J18.9 Pneumonia type: aspiration pneumonia Acute respiratory failure with hypoxia J96.01 Fever R50.9 Elevated INR R79.1 Thrombocytopenia D69.6 Hemodialysis patient Z99.2 Paroxysmal atrial fibrillation I48.0 H/O stem cell transplant Z94.84 Indwelling Chandler catheter present Z97.8 Bacteremia R78.81 Severe sepsis A41.9; R65.20 Cardiomyopathy I42.9 Time Spent (min) 35 (1) Pneumonia Pneumonia type: aspiration pneumonia
--- NOTE | 2023-04-04 19:27 | Electrocardiogram Report ---
Test Reason : Blood Pressure : / mmHG Vent. Rate : 088 BPM Atrial Rate : 088 BPM P-R Int : 136 ms QRS Dur : 106 ms QT Int : 384 ms P-R-T Axes : 094 -32 059 degrees QTc Int : 465 ms Sinus rhythm with frequent Premature ventricular complexes Left axis deviation Incomplete left bundle block Nonspecific T wave abnormality Abnormal ECG When compared with ECG of 01-APR-2023 10:57, Minimal criteria for Septal infarct are no longer Present Confirmed by Al Jimenez ([id number] on 04/04/2023 7:27:03 PM Referred By: REFERRED SELF Confirmed By:Al Jimenez
[2023-04-05 06:40] LABS: Hematocrit (blood only) 24.1 % (42.0-52.0); Hemoglobin 8.2 g/dl (14.0-18.0); Mean Corpuscular Hemoglobin 29.9 pg (25.0-34.0); Platelet Count 18 K/uL (130-400); RDW Coefficient of Variation 16.8 % (11.5-14.5); RDW Standard Deviation 53.8 fL (36.4-46.3); Red Blood Count 2.74 M/uL (4.70-6.10); White Blood Count 2.44 K/ul (4.8-10.8)
[2023-04-05 07:03] LABS: INR 1.5 (0.9-1.1); Prothrombin Time 16.4 Seconds (9.0-12.0)
[2023-04-05 07:07] LABS: Albumin Level 2.7 gm/dl (3.4-5.0); BUN Creatinine Ratio 10.9 (10-20); Bilirubin,Total 1.7 mg/dl (0.2-1.0); Calcium 7.8 mg/dl (8.6-10.3); Creatinine Clr Calc Pharmacy 11.8 ml/min; Est GFR (African American) 13.8 ml/min; Est GFR (Non-African American) 11.9 ml/min; Globulin 2.6 gm/dl (2.5-4.0); Phosphorus 3.1 mg/dl (2.5-4.9); Potassium 3.5 mmol/L (3.5-5.1); Total Protein 5.3 gm/dl (6.0-8.3)
--- NOTE | 2023-04-05 10:26 | Nephrology Progress Note ---
Date of Service April 05, 2023 Assessment & Plan (1) ESRD (end stage renal disease): Plan: Completed HD yesterday with adequate UF and clearance. Refusing AVG use. Messi refuses to allow needle placement because it is painful and uncomfortable. Continued education is being provided. Pain is expressed despite use of EMLA cream and Tylenol. There is a component of anxiety contributing to his reservations with needle placement for Xanax has been prescribed. AVG placed by Dr. Oshea on 11/26/22. Risks of infection with TDC have been discussed. Outpatient Rx is TTS 3.5 hrs, 400/800, 3K, 137Na. EDW 64.5 kg. Renal diet. Sevelamer QAC. (2) Acute respiratory failure with hypoxia: Plan: Attributed to pneumonia. Remains on supplemental O2 via NC. (3) Pneumonia: Plan: Remains on levofloxacin. (4) H/O stem cell transplant: Plan: History of multiple myeloma in remission. Thrombocytopenia noted. Progressive cytopenias noted on labs today. This was initially attributed to sepsis. Hematology consultation appreciated. No heparin with HD. Avoid iron with dialysis due to history of iron overload. Admission and Anticipated Discharge Date Admission Date: April 01, 2023 Subjective No acute events overnight. Messi tolerated HD well yesterday. No complications with treatment. He was resting comfortably in bed this AM. Denies dyspnea. Completed video swallow study this AM. Review of Systems Review of Systems: All systems reviewed & are unremarkable except as noted in HPI & below Physical Exam Constitutional: well developed, + ill appearing, + thin and + frail appearing; no acute distress Eyes: + anicteric sclerae; no conjunctival abn ormality ENMT: Mouth: + dry oral mucous membranes Neck: RIJ TDC Respiratory: normal respiratory effort; no respiratory distress Auscul tation: lungs clear to auscultation bilaterally Cardiovascular: Rate/Rhythm: regular rate and regular rhythm Heart Sounds: + murmur (mechanical aortic valve sound) Extremities: normal capillary refill and + AV fistula (LUE BC AVG); no calf tenderness, no pedal edema and no edema Gastrointestinal (Abdomen): normal bowel sounds, soft, nontender, no hepatosplenomegaly Musculoskeletal: no cyanosis or clubbing, extremities motor strength 5/5 Skin: no rashes, warm and dry (no areas of cellulitis noted) normal turgor; no jaundice Neurologic: moves all extremities and awake; not confused Psychiatric: A+Ox3, euthymic affect Orientation: alert, oriented to person and oriented to place Results & Data Vital Signs (Past 12 Hours) Vital Signs Temp Pulse Pulse Resp BP Pulse Ox O2 Del Method 04/05/23 07:15 36.4 C L 82 18 114/33 L 98 Nasal Cannula 04/05/23 03:00 36.6 C 75 18 114/58 L 96 Room Air 04/05/23 00:00 96 H 04/04/23 23:00 36.6 C 81 19 106/55 L 97 Nasal Cannula O2 Flow Rate 04/05/23 07:15 3 04/05/23 03:00 04/05/23 00:00 04/04/23 23:00 Laboratory Results Laboratory Results - last 24 hr 04/05/23 04/05/23 06:16 07:49 WBC 2.44 L RBC 2.74 L Hgb 8.2 L Hct 24.1 L MCV 88.0 MCH 29.9 MCHC 34.0 RDW Std Deviation 53.8 H RDW Coeff of Berto 16.8 H Plt Count 18 L* Peripher Smr Path Cons Pending Cancelled PT 16.4 H INR 1.5 H Sodium 136 Potassium 3.5 Chloride 104 Carbon Dioxide 23 Anion Gap 9 BUN 48 H D Creatinine 4.39 H D Est Cr Clr Drug Dosing 11.8 Est GFR ( Amer) 13.8 Est GFR (Non-Af Amer) 11.9 BUN/Creatinine Ratio 10.9 Glucose 168 H Calcium 7.8 L Phosphorus 3.1 Total Bilirubin 1.7 H AST 52 H ALT 37 Alkaline Phosphatase 163 H Total Protein 5.3 L Albumin 2.7 L Globulin 2.6 Albumin/Globulin Ratio 1.0 PG Care Time/CCT Total # of Minutes Spent Total Time Spent with Patient: Total time spent is greater than 50% in coordination of care (as documented) at patient's floor/unit and/or counseling patient: Coding Level of Care Code 37128 SUB INP/OBS CARE 3/50MIN Diagnoses ESRD (end stage renal disease) N18.6 Acute respiratory failure with hypoxia J96.01 Pneumonia J18.9 Laterality: unspecified laterality Lung location: unspecified part of lung Pneumonia type: due to unspecified organism H/O stem cell transplant Z94.84 (3) Pneumonia Laterality: unspecified laterality Lung location: unspecified part of lung Pneumonia type: due to unspecified organism Qualified Code(s): J18.9 - Pneumonia, unspecified organism
--- NOTE | 2023-04-05 11:09 | Fluoroscopy Report ---
VIDEO SWALLOW STUDY CLINICAL HISTORY: Aspiration. COMPARISON STUDY: No priors. Fluoroscopy time: 1.38 minutes. Ka,r: 4.73 mGy FINDINGS: Fluoroscopic guidance was provided to the Department of speech pathology in performing a vi alissa swallow study. The patient consumed barium impregnated pudding, cracker with paste, nectar thick liquids, and thin barium while the swallowing mechanism was observed in real-time. There is laryngeal penetration and silent aspiration seen with thin barium. No penetration or aspiration was seen with the remaining sampled textures. IMPRESSION: 1. Silent aspiration was seen with thin barium. 2. No penetration or aspiration was clearly seen with the additional sampled textures. 3. See dedicated speech pathology report for detailed findings and recommendations. Dictated: 04/05/2023 10:50 AM Transcribed: 04/05/2023 11:06 AM Chin [id number] [email or web address] Electronically signed by: Cuauhtemoc Fuchs M.D. 04/05/2023 11:07 AM
--- NOTE | 2023-04-05 13:04 | Hospitalist Progress Note ---
Date of Service April 05, 2023 Assessment & Plan (1) Pneumonia: Plan: Suspected due to increased oxygen requirement although this may just be pulmonary edema, although he appears to have an infection somewhere due to fevers at home with generalized weakness Possible concern for aspiration and will have SLT consult but unless overtly aspirating can have a normal diet pending this suspect aspiration, video swallow eval showed silent aspiration Was initially on IV cefepime but discontinued due to thrombocytopenia currently on Levaquin, (2) Thrombocytopenia: Plan: Worsening thrombocytopenia, although sepsis is resolving Platelet count 18,000 today Hematology on consult Requested blood smear Transfuse if platelet drops below 10,000 or if there is bleeding. (3) Acute respiratory failure with hypoxia: Plan: Now resolved Patient currently on room air (4) Fever: Plan: Patient has been afebrile for the past 48 hours Biofire PCR negative blood culture Coag negative staph , probably contamination urine culture is pending (5) Elevated INR: Plan: On for [facility] metallic AVR and a. fib with usual goal per cardiology notes 2-3. No active bleeding suspected but given concurrent platelets 35 in addition to INR > 8 this warrants treatment Vitamin K 2.5mg IV, repeat INR later today to check coming down, restart warfarin once < 3.5 Usual warfarin dosing 1mg x2 days, 0.5mg all other days but recently increased to 1mg x3 days, 0.5mg all other days INR 1.2 , platelets 18 today, continue to hold Coumadin in view of thrombocytopenia hem/onc consulted (6) Hemodialysis patient: Plan: Continue hemodialysis (7) Paroxysmal atrial fibrillation: Plan: Currently in NSR Anticoagulation on hold as INR supratherapeutic Continue metoprolol tartrate 50mg PO BID hold Coumadin due to low PLT (8) H/O stem cell transplant: Plan: hem/onc consulted (9) Indwelling Chandler catheter present: Plan: Replaced in the ER, UA pending Restart tamsulosin when stable (10) Bacteremia: Plan: staph bacteremia, coag negative , probably contamination perm-a cath in place repeat blood cultures hold Vancomycin ECHO no obvious vegetation (11) Severe sepsis: Plan: unclear etiology , ? pneumonia, HD cath infection blood culture is positive for coag negative staph received Vancomycin , Cefepime transition to Levaquin due to thrombocytopenia (12) Cardiomyopathy: Plan: EF 35 -40 % probably has CHF acute systolic continue HD cardiology follows Plan VTE prophylaxis - supratherapeutic INR, warfarin on hold Diet - dialysis renal Disposition -continue hospitalization Awaiting PT eval Admission and Anticipated Discharge Date Admission Date: April 01, 2023 Subjective Patient seen and examined, had his video swallow eval this morning Review of Systems Review of Systems: All systems reviewed are negative, apart from the ones contained in the history. Physical Exam Physical Exam: The patient is awake, alert and oriented 3, well developed and well nourished, normocephalic and atraumatic, lying in bed and in no acute distress. HEENT--PERRL, EOMI, mucous membranes and oropharynx mildly dry Neck--supple. No JVD. No bruits. Thyroid normal, trachea midline, no adenopathy. Heart--normal S1 and S2. No murmurs, rubs or gallops. Lungs--clear bilaterally, no respiratory distress, no accessory muscle use. Abdomen--normal bowel sounds and soft. Mild epigastric and left sided abdominal pain Extremities--no cyanosis or clubbing. No edema. Dermatologic--normal skin turgor, normal color, no abnormal lymph nodes, no rash. Neurologic--cranial nerves II through XII grossly intact. Rheumatologic--normal range of motion. Psychiatric--normal affect. Results & Data Results & Data Vital Signs (Past 12 Hours) Vital Signs Temp Pulse Pulse Resp BP Pulse Ox O2 Del Method 04/05/23 11:43 98.1 F 84 18 108/47 L 96 Room Air 04/05/23 08:00 84 04/05/23 08:00 Nasal Cannula 04/05/23 07:15 97.5 F L 82 18 114/33 L 98 Nasal Cannula 04/05/23 03:00 97.9 F 75 18 114/58 L 96 Room Air O2 Flow Rate 04/05/23 11:43 04/05/23 08:00 04/05/23 08:00 1 04/05/23 07:15 3 04/05/23 03:00 PG Care Time/CCT Total # of Minutes Spent Total Time Spent with Patient: Total time spent is greater than 50% in coordination of care (as documented) at patient's floor/unit and/or counseling patient: Coding Level of Care Code 44154 SUB INP/OBS CARE 2/35MIN Diagnoses Pneumonia J18.9 Pneumonia type: aspiration pneumonia Thrombocytopenia D69.6 Acute respiratory failure with hypoxia J96.01 Fever R50.9 Elevated INR R79.1 Hemodialysis patient Z99.2 Paroxysmal atrial fibrillation I48.0 H/O stem cell transplant Z94.84 Indwelling Chandler catheter present Z97.8 Bacteremia R78.81 Severe sepsis A41.9; R65.20 Cardiomyopathy I42.9 Time Spent (min) 35 (1) Pneumonia Pneumonia type: aspiration pneumonia
[2023-04-06 06:43] LABS: Hematocrit (blood only) 21.5 % (42.0-52.0); Hemoglobin 7.6 g/dl (14.0-18.0); Mean Corpuscular Hemoglobin 29.7 pg (25.0-34.0); Mean Corpuscular Hgb Conc 35.3 g/dL (32.0-36.0); Platelet Count 16 K/uL (130-400); RDW Standard Deviation 52.4 fL (36.4-46.3); Red Blood Count 2.56 M/uL (4.70-6.10); White Blood Count 2.08 K/ul (4.8-10.8)
[2023-04-06 07:03] LABS: INR 1.7 (0.9-1.1); Prothrombin Time 17.7 Seconds (9.0-12.0)
[2023-04-06 07:50] LABS: Albumin Level 2.6 gm/dl (3.4-5.0); BUN Creatinine Ratio 11.3 (10-20); Calcium 7.6 mg/dl (8.6-10.3); Creatinine Clr Calc Pharmacy 9.2 ml/min; Est GFR (African American) 10.5 ml/min; Est GFR (Non-African American) 9.1 ml/min; Phosphorus 3.2 mg/dl (2.5-4.9); Potassium 3.6 mmol/L (3.5-5.1)
[2023-04-06] MEDS ORDERED: ALPRAZolam 0.25 MG TABLET PO ONE (09:56)
[2023-04-06] MEDS ORDERED: Nursing to Pharmacy Communication SCH ×2 (10:00→10:15)
[2023-04-06] MEDS: LIDOCAINE/PRILOCAINE 2.5% EA CRM EXT ONE (10:25)
[2023-04-06] MEDS: ALPRAZolam 0.25 MG TABLET PO PRN (10:29)
--- NOTE | 2023-04-06 10:52 | Nephrology Progress Note ---
Date of Service April 06, 2023 Assessment & Plan (1) ESRD (end stage renal disease): Plan: Orders for HD today entered into the EHR and reviewed with HD RN. Messi was seen and evaluated during treatment. He was agreeable to single needle placement for HD today. No difficulty cannulating AVG. Anxiolytics and EMLA used for comfort. There is a component of anxiety contributing to his reservations with needle placement for Xanax has been prescribed. AVG placed by Dr. Oshea on 11/26/22. Risks of infection with TDC have been discussed. Outpatient Rx is TTS 3.5 hrs, 400/800, 3K, 137Na. EDW 64.5 kg. Renal diet. Sevelamer QAC. (2) Acute respiratory failure with hypoxia: Plan: Attributed to pneumonia. Remains on supplemental O2 via NC. (3) Pneumonia: Plan: Remains on levofloxacin. (4) H/O stem cell transplant: Plan: History of multiple myeloma in remission. Thrombocytopenia noted. Progressive cytopenias noted on labs today. This was initially attributed to sepsis. Hematology consultation appreciated. No heparin with HD. Avoid iron with dialysis due to history of iron overload. (5) Anemia: Plan: Appreciate hematology consultation. Epogen [id number] units with HD today. Admission and Anticipated Discharge Date Admission Date: April 01, 2023 Subjective No acute events overnight. No complaints this AM. Messi was seen and evaluated prior to HD. He is agreeable to single needle placement for HD. Needle placed without difficulty. Messi denies notable pain. He is breathing comfortably. Review of Systems Review of Systems: All systems reviewed & are unremarkable except as noted in HPI & below Physical Exam Constitutional: well developed, + thin and + frail appearing; no acute dis tress Eyes: + anicteric sclerae; no conjunctival abn ormality ENMT: Mouth: + dry oral mucous membranes Respiratory: normal respiratory effort; no respiratory distress Auscultation: lungs clear to auscultation bilaterally Cardiovascular: Rate/Rhythm: regular rate and regular rhythm Heart Sounds: + murmur (mechanical aortic valve sound) Extremities: normal capillary refill and + AV fistula (LUE BC AVG); no edema Gastrointestinal (Abdomen): normal bowel sounds, soft, nontender, no hepatosplenomegaly Skin: normal turgor; no jaundice Neurologic: moves all extremities and awake; not confused Psychiatric: Orientation: alert, oriented to person and oriented to place Results & Data Vital Signs (Past 12 Hours) Vital Signs Temp Pulse Pulse Pulse Resp BP Pulse Ox 04/06/23 08:00 91 H 04/06/23 08:00 04/06/23 07:49 37.0 C 91 H 18 125/55 L 97 04/06/23 02:54 36.9 C 77 18 125/61 98 04/06/23 00:00 94 H 04/05/23 23:10 36.6 C 89 18 116/63 98 O2 Del Method O2 Flow Rate 04/06/23 08:00 04/06/23 08:00 Nasal Cannula 3 04/06/23 07:49 Nasal Cannula 3 04/06/23 02:54 Nasal Cannula 04/06/23 00:00 04/05/23 23:10 Nasal Cannula 3 Laboratory Results Laboratory Results - last 24 hr 04/05/23 04/06/23 06:16 05:38 WBC 2.08 L RBC 2.56 L Hgb 7.6 L Hct 21.5 L MCV 84.0 MCH 29.7 MCHC 35.3 RDW Std Deviation 52.4 H RDW Coeff of Berto 17.0 H Plt Count 16 L* Peripher Smr Path Cons PT 17.7 H INR 1.7 H Sodium 132 L Potassium 3.6 Chloride 102 Carbon Dioxide 20 L Anion Gap 10 BUN 62 H Creatinine 5.50 H* D Est Cr Clr Drug Dosing 9.2 Est GFR ( Amer) 10.5 Est GFR (Non-Af Amer) 9.1 BUN/Creatinine Ratio 11.3 Glucose 109 H Calcium 7.6 L Phosphorus 3.2 Albumin 2.6 L PG Care Time/CCT Total # of Minutes Spent Total Time Spent with Patient: Total time spent is greater than 50% in coordination of care (as documented) at patient's floor/unit and/or counseling patient: Coding Level of Care Code 10938 SUB INP/OBS CARE 3/50MIN Diagnoses ESRD (end stage renal disease) N18.6 Acute respiratory failure with hypoxia J96.01 Pneumonia J18.9 Laterality: unspecified laterality Lung location: unspecified part of lung Pneumonia type: due to unspecified organism H/O stem cell transplant Z94.84 Anemia D64.9 (3) Pneumonia Laterality: unspecified laterality Lung location: unspecified part of lung Pneumonia type: due to unspecified organism Qualified Code(s): J18.9 - Pneumonia, unspecified organism
--- NOTE | 2023-04-06 13:34 | Hospitalist Progress Note ---
Date of Service April 06, 2023 Assessment & Plan (1) Pneumonia: Plan: Suspected due to increased oxygen requirement although this may just be pulmonary edema, although he appears to have an infection somewhere due to fevers at home with generalized weakness Possible concern for aspiration and will have SLT consult but unless overtly aspirating can have a normal diet pending this suspect aspiration, video swallow eval showed silent aspiration Was initially on IV cefepime but discontinued due to thrombocytopenia currently on Levaquin, Blood cultures negative in the past 48 hours (2) Thrombocytopenia: Plan: Worsening thrombocytopenia, although sepsis is resolving Platelet count 16,000 today Hematology on consult Requested blood smear Transfuse if platelet drops below 10,000 or if there is bleeding. (3) Acute respiratory failure with hypoxia: Plan: Now resolved Patient currently on room air (4) Fever: Plan: Patient has been afebrile for the past 48 hours Biofire PCR negative blood culture Coag negative staph , probably contamination urine culture is pending (5) Elevated INR: Plan: On for [facility] metallic AVR and a. fib with usual goal per cardiology notes 2-3. No active bleeding suspected but given concurrent platelets 35 in addition to INR > 8 this warrants treatment Vitamin K 2.5mg IV, repeat INR later today to check coming down, restart warfarin once < 3.5 Usual warfarin dosing 1mg x2 days, 0.5mg all other days but recently increased to 1mg x3 days, 0.5mg all other days INR 1.2 , platelets 16 today, continue to hold Coumadin in view of thrombocytopenia hem/onc consulted (6) Hemodialysis patient: Plan: Continue hemodialysis (7) Paroxysmal atrial fibrillation: Plan: Currently in NSR Anticoagulation on hold as INR supratherapeutic Continue metoprolol tartrate 50mg PO BID hold Coumadin due to low PLT (8) H/O stem cell transplant: Plan: hem/onc consulted (9) Indwelling Chandler catheter present: Plan: Replaced in the ER, UA pending Restart tamsulosin when stable (10) Bacteremia: Plan: staph bacteremia, coag negative , probably contamination perm-a cath in place repeat blood cultures showed no growth in the last 48 hours hold Vancomycin ECHO no obvious vegetation (11) Severe sepsis: Plan: Now resolved blood culture is positive for coag negative staph which probably is a contaminant received Vancomycin , Cefepime transition to Levaquin due to thrombocytopenia No growth in the past 48 hours (12) Cardiomyopathy: Plan: EF 35 -40 % probably has CHF acute systolic continue HD cardiology follows (13) Physical deconditioning: Plan: Patient is severely physically deconditioned Physical therapy recommends acute rehab However I spoke with the and she said she will try to convince him to go to rehab (14) Constipated: Plan: Patient refused Dulcolax Will start him on MiraLAX Plan VTE prophylaxis - supratherapeutic INR, warfarin on hold Diet - dialysis renal Disposition -continue hospitalization Awaiting PT eval Admission and Anticipated Discharge Date Admission Date: April 01, 2023 Subjective Patient seen and examined, lying quietly in bed, denies any pains, however has not had a bowel movement in a few days. Refuses Dulcolax Review of Systems Review of Systems: All systems reviewed are negative, apart from the ones contained in the history. Physical Exam Physical Exam: The patient is awake, alert and oriented 3, well developed and well nourished, normocephalic and atraumatic, lying in bed and in no acute distress. HEENT--PERRL, EOMI, mucous membranes and oropharynx mildly dry Neck--supple. No JVD. No bruits. Thyroid normal, trachea midline, no adenopathy. Heart--normal S1 and S2. No murmurs, rubs or gallops. Lungs--clear bilaterally, no respiratory distress, no accessory muscle use. Abdomen--normal bowel sounds and soft. Mild epigastric and left sided abdominal pain Extremities--no cyanosis or clubbing. No edema. Dermatologic--normal skin turgor, normal color, no abnormal lymph nodes, no rash. Neurologic--cranial nerves II through XII grossly intact. Rheumatologic--normal range of motion. Psychiatric--normal affect. Results & Data Results & Data Vital Signs (Past 12 Hours) Vital Signs Temp Pulse Pulse Pulse Resp BP BP 04/06/23 11:30 82 105/56 L 04/06/23 11:00 84 104/52 L 04/06/23 10:40 98.4 F 88 04/06/23 08:00 91 H 04/06/23 08:00 04/06/23 07:49 98.6 F 91 H 18 125/55 L 04/06/23 02:54 98.4 F 77 18 125/61 Pulse Ox O2 Del Method O2 Flow Rate 04/06/23 11:30 04/06/23 11:00 04/06/23 10:40 04/06/23 08:00 04/06/23 08:00 Nasal Cannula 3 04/06/23 07:49 97 Nasal Cannula 3 04/06/23 02:54 98 Nasal Cannula PG Care Time/CCT Total # of Minutes Spent Total Time Spent with Patient: Total time spent is greater than 50% in coordination of care (as documented) at patient's floor/unit and/or counseling patient: Coding Level of Care Code 15282 SUB INP/OBS CARE 2/35MIN Diagnoses Pneumonia J18.9 Pneumonia type: aspiration pneumonia Thrombocytopenia D69.6 Acute respiratory failure with hypoxia J96.01 Fever R50.9 Elevated INR R79.1 Hemodialysis patient Z99.2 Paroxysmal atrial fibrillation I48.0 H/O stem cell transplant Z94.84 Indwelling Chandler catheter present Z97.8 Bacteremia R78.81 Severe sepsis A41.9; R65.20 Cardiomyopathy I42.9 Physical deconditioning R53.81 Constipated K59.00 Time Spent (min) 35 (1) Pneumonia Pneumonia type: aspiration pneumonia
[2023-04-06] MEDS: EPOETIN ALFA 40,000 UNITS/ML VIAL IV ONE (14:14)
[2023-04-06] MEDS: POLYETHYLENE (MIRALAX) 17 GM PACK PO PRN (17:40)
[2023-04-07 07:40] LABS: INR 1.9 (0.9-1.1); Prothrombin Time 19.9 Seconds (9.0-12.0)
[2023-04-07 08:42] LABS: BUN Creatinine Ratio 9.8 (10-20); Calcium 7.7 mg/dl (8.6-10.3); Creatinine Clr Calc Pharmacy 13.1 ml/min; Est GFR (Non-African American) 13.8 ml/min; Potassium 3.9 mmol/L (3.5-5.1)
[2023-04-07 08:53] LABS: Hematocrit (blood only) 23.6 % (42.0-52.0); Hemoglobin 7.9 g/dl (14.0-18.0); Mean Corpuscular Hemoglobin 29.3 pg (25.0-34.0); Mean Corpuscular Hgb Conc 33.5 g/dL (32.0-36.0); Mean Corpuscular Volume 87.4 fL (80.0-100.0); Platelet Count 13 K/uL (130-400); RDW Coefficient of Variation 17.4 % (11.5-14.5); RDW Standard Deviation 55.7 fL (36.4-46.3); White Blood Count 1.68 K/ul (4.8-10.8)
[2023-04-07 09:20] LABS: Eosinophils # (auto) 0.01 K/uL (0.00-0.50); Eosinophils % (auto) 0.6 %; Immature Granulocytes # (auto) 0.01 K/uL (0.01-0.20); Immature Granulocytes % (auto) 0.6 %; Lymphocytes # (auto) 0.52 K/uL (1.20-3.40); Monocytes # (auto) 0.24 K/uL (0.11-0.59); Monocytes % (auto) 14.3 %; Neutrophils % (auto) 53.5 %
--- NOTE | 2023-04-07 10:05 | Nephrology Progress Note ---
Date of Service April 07, 2023 Assessment & Plan (1) ESRD (end stage renal disease): Plan: Completed HD yesterday without complications. Tolerated treatment well. Unfortunately, we were not able to successfully use the AVG for the entire treatment. No difficulty cannulating AVG. Anxiolytics and EMLA used for comfort. There is a component of anxiety contributing to his reservations with needle placement for Xanax has been prescribed. AVG placed by Dr. Oshea on 11/26/22. We will attempt AVG use again tomorrow. Outpatient Rx is TTS 3.5 hrs, 400/800, 3K, 137Na. EDW 64.5 kg. Renal diet. Sevelamer QAC. (2) Acute respiratory failure with hypoxia: Plan: Attributed to pneumonia. Remains on supplemental O2 via NC. (3) Pneumonia: Plan: Remains on levofloxacin. (4) H/O stem cell transplant: Plan: History of multiple myeloma in remission. Thrombocytopenia noted. Progressive cytopenias noted on labs today. This was initially attributed to sepsis. Hematology consultation appreciated. No heparin with HD. Avoid iron with dialysis due to history of iron overload. (5) Anemia: Plan: Appreciate hematology consultation. Epogen 39069 units with HD yesterday. Pancytopenia progressing. Repeat evaluation by hematology is advised. Peripheral smear reviewed. Admission and Anticipated Discharge Date Admission Date: April 01, 2023 Subjective Tmax 38.1 overnight. Messi reports that he did have a bowel movement this AM. He denies any pain. Overall, he states that he feels well. He denies any dyspnea. He denies subjective fevers or chills. He tolerated HD well yesterday. AVG was able to be cannulated with arterial needle without difficulty. Unfortunately, alf through treatment access pressure alarms were triggered requiring us to convert to CV use for the remainder of treatment. No signs of infiltration. Messi denies pain or discomfort in the arm today. Review of Systems Review of Systems: All systems reviewed & are unremarkable except as noted in HPI & below Physical Exam Constitutional: well developed, + thin and + frail appearing; no acute distress Eyes: + anicteric sclerae; no conjunctival abn ormality ENMT: Mouth: + dry oral mucous membranes Respiratory: normal respiratory effort; no respiratory distress Auscultation: lungs clear to auscultation bilaterally Cardiovascular: Rate/Rhythm: regular rate and regular rhythm Heart Sounds: + murmur (mechanical aortic valve sound) Extremities: normal capillary refill and + AV fistula (LUE BC AVG); no edema Musculoskeletal: no cyanosis or clubbing, extremities motor strength 5/5 Skin: + turgor decreased; no jaundice Neurologic: moves all extremities and awake; not confused Psychiatric: Orientation: alert, oriented to person and oriented to place Results & Data Vital Signs (Past 12 Hours) Vital Signs Temp Pulse Pulse Resp BP Pulse Ox O2 Del Method 04/07/23 08:00 Nasal Cannula 04/07/23 07:59 36.9 C 74 18 116/52 L 97 Nasal Cannula 04/07/23 02:53 36.5 C 78 18 112/59 L 99 Nasal Cannula 04/06/23 23:44 37.1 C 04/06/23 22:30 38.1 C H 96 H 18 111/56 L 97 Nasal Cannula O2 Flow Rate 04/07/23 08:00 3 04/07/23 07:59 3 04/07/23 02:53 04/06/23 23:44 04/06/23 22:30 Laboratory Results Laboratory Results - last 24 hr 04/07/23 04/07/23 04/07/23 05:58 06:01 06:07 WBC 1.68 L RBC 2.70 L Hgb 7.9 L Hct 23.6 L MCV 87.4 MCH 29.3 MCHC 33.5 RDW Std Deviation 55.7 H RDW Coeff of Berto 17.4 H Plt Count 13 L* Immature Gran % (Auto) 0.6 Neut % (Auto) 53.5 Lymph % (Auto) 31.0 [place] % (Auto) 14.3 Eos % (Auto) 0.6 Baso % (Auto) 0.0 Neut # (Auto) 0.90 L* Lymph # (Auto) 0.52 L [place] # (Auto) 0.24 Eos # (Auto) 0.01 Baso # (Auto) 0.00 Immature Gran # (Auto) 0.01 PT 19.9 H INR 1.9 H Sodium 137 Potassium 3.9 Chloride 106 Carbon Dioxide 23 Anion Gap 8 BUN 38 H D Creatinine 3.89 H D Est Cr Clr Drug Dosing 13.1 Est GFR ( Amer) 16.0 Est GFR (Non-Af Amer) 13.8 BUN/Creatinine Ratio 9.8 L Glucose 107 H Calcium 7.7 L PG Care Time/CCT Total # of Minutes Spent Total Time Spent with Patient: Total time spent is greater than 50% in coordination of care (as documented) at patient's floor/unit and/or counseling patient: Coding Level of Care Code 11635 SUB INP/OBS CARE 3/50MIN Diagnoses ESRD (end stage renal disease) N18.6 Acute respiratory failure with hypoxia J96.01 Pneumonia J18.9 Laterality: unspecified laterality Lung location: unspecified part of lung Pneumonia type: due to unspecified organism H/O stem cell transplant Z94.84 Anemia D64.9 (3) Pneumonia Laterality: unspecified laterality Lung location: unspecified part of lung Pneumonia type: due to unspecified organism Qualified Code(s): J18.9 - Pneumonia, unspecified organism
--- NOTE | 2023-04-07 10:56 | Hospitalist Progress Note ---
Date of Service April 07, 2023 Assessment & Plan (1) Pneumonia: Plan: suspect aspiration, video swallow eval showed silent aspiration Was initially on IV cefepime but discontinued due to thrombocytopenia currently on Levaquin, Blood cultures negative in the past 48 hours (2) Thrombocytopenia: Plan: Worsening thrombocytopenia, although sepsis has resolved Platelet count 13,000 today Hematology on consult Requested blood smear Transfuse if platelet drops below 10,000 or if there is bleeding. (3) Acute respiratory failure with hypoxia: Plan: Now resolved Patient currently on room air (4) Fever: Plan: Patient has been afebrile for the past 48 hours Biofire PCR negative blood culture Coag negative staph , probably contamination urine culture is pending (5) Elevated INR: Plan: On for [facility] metallic AVR and a. fib with usual goal per cardiology notes 2-3. No active bleeding suspected but given concurrent platelets 35 in addition to INR > 8 this warrants treatment Vitamin K 2.5mg IV, repeat INR later today to check coming down, restart warfarin once < 3.5 Usual warfarin dosing 1mg x2 days, 0.5mg all other days but recently increased to 1mg x3 days, 0.5mg all other days INR 1.2 , platelets 13 today, continue to hold Coumadin in view of thrombocytopenia hem/onc consulted (6) Hemodialysis patient: Plan: Continue hemodialysis (7) Paroxysmal atrial fibrillation: Plan: Currently in NSR Anticoagulation on hold as INR supratherapeutic Continue metoprolol tartrate 50mg PO BID hold Coumadin due to low PLT (8) H/O stem cell transplant: Plan: hem/onc consulted (9) Indwelling Chandler catheter present: Plan: Replaced in the ER, UA pending Restart tamsulosin when stable (10) Bacteremia: Plan: staph bacteremia, coag negative , probably contamination perm-a cath in place repeat blood cultures showed no growth in the last 48 hours hold Vancomycin ECHO no obvious vegetation (11) Severe sepsis: Plan: Now resolved blood culture is positive for coag negative staph which probably is a contaminant received Vancomycin , Cefepime transition to Levaquin due to thrombocytopenia No growth in the past 48 hours (12) Cardiomyopathy: Plan: EF 35 -40 % probably has CHF acute systolic continue HD cardiology follows (13) Physical deconditioning: Plan: Patient is severely physically deconditioned Physical therapy recommends acute rehab However I spoke with the and she said she will try to convince him to go to rehab (14) Constipated: Plan: Resolved, patient had a bowel movement yesterday Plan VTE prophylaxis - supratherapeutic INR, warfarin on hold Diet - dialysis renal Disposition -continue hospitalization Awaiting PT eval Admission and Anticipated Discharge Date Admission Date: April 01, 2023 Subjective Patient seen and examined, said he had a bowel movement, tolerated hemodialysis Review of Systems Review of Systems: All systems reviewed are negative, apart from the ones contained in the history. Physical Exam Physical Exam: The patient is awake, alert and oriented 3, well developed and well nourished, normocephalic and atraumatic, lying in bed and in no acute distress. HEENT--PERRL, EOMI, mucous membranes and oropharynx mildly dry Neck--supple. No JVD. No bruits. Thyroid normal, trachea midline, no adenopathy. Heart--normal S1 and S2. No murmurs, rubs or gallops. Lungs--clear bilaterally, no respiratory distress, no accessory muscle use. Abdomen--normal bowel sounds and soft. Mild epigastric and left sided abdominal pain Extremities--no cyanosis or clubbing. No edema. Dermatologic--normal skin turgor, normal color, no abnormal lymph nodes, no rash. Neurologic--cranial nerves II through XII grossly intact. Rheumatologic--normal range of motion. Psychiatric--normal affect. Results & Data Results & Data Vital Signs (Past 12 Hours) Vital Signs Temp Pulse Pulse Resp BP Pulse Ox O2 Del Method 04/07/23 08:00 Nasal Cannula 04/07/23 07:59 98.4 F 74 18 116/52 L 97 Nasal Cannula 04/07/23 02:53 97.7 F 78 18 112/59 L 99 Nasal Cannula 04/06/23 23:44 98.8 F O2 Flow Rate 04/07/23 08:00 3 04/07/23 07:59 3 04/07/23 02:53 04/06/23 23:44 PG Care Time/CCT Total # of Minutes Spent Total Time Spent with Patient: Total time spent is greater than 50% in coordination of care (as documented) at patient's floor/unit and/or counseling patient: Coding Level of Care Code 28280 SUB INP/OBS CARE 2/35MIN Diagnoses Pneumonia J18.9 Pneumonia type: aspiration pneumonia Thrombocytopenia D69.6 Acute respiratory failure with hypoxia J96.01 Fever R50.9 Elevated INR R79.1 Hemodialysis patient Z99.2 Paroxysmal atrial fibrillation I48.0 H/O stem cell transplant Z94.84 Indwelling Chandler catheter present Z97.8 Bacteremia R78.81 Severe sepsis A41.9; R65.20 Cardiomyopathy I42.9 Physical deconditioning R53.81 Constipated K59.00 Time Spent (min) 35 (1) Pneumonia Pneumonia type: aspiration pneumonia
[2023-04-08 07:00] LABS: Hematocrit (blood only) 23.6 % (42.0-52.0); Mean Corpuscular Hemoglobin 29.1 pg (25.0-34.0); Mean Corpuscular Hgb Conc 33.9 g/dL (32.0-36.0); Mean Corpuscular Volume 85.8 fL (80.0-100.0); Platelet Count 20 K/uL (130-400); RDW Coefficient of Variation 17.3 % (11.5-14.5); Red Blood Count 2.75 M/uL (4.70-6.10); White Blood Count 2.17 K/ul (4.8-10.8)
[2023-04-08 07:17] LABS: Basophils # (auto) 0.01 K/uL (0.00-0.20); Basophils % (auto) 0.5 %; Eosinophils # (auto) 0.01 K/uL (0.00-0.50); Eosinophils % (auto) 0.5 %; Immature Granulocytes # (auto) 0.01 K/uL (0.01-0.20); Immature Granulocytes % (auto) 0.5 %; Lymphocytes # (auto) 0.62 K/uL (1.20-3.40); Lymphocytes % (auto) 28.6 %; Monocytes # (auto) 0.34 K/uL (0.11-0.59); Monocytes % (auto) 15.7 %; Neutrophils # (auto) 1.18 K/uL (1.40-6.50); Neutrophils % (auto) 54.2 %; Ovalocytes 1+; Polychromasia 1+; Tear Drop Cells 1+
[2023-04-08 07:18] LABS: INR 1.7 (0.9-1.1); Prothrombin Time 18.5 Seconds (9.0-12.0)
[2023-04-08 07:46] LABS: BUN Creatinine Ratio 10.8 (10-20); Calcium 7.5 mg/dl (8.6-10.3); Creatinine Clr Calc Pharmacy 9.8 ml/min; Est GFR (African American) 11.3 ml/min; Est GFR (Non-African American) 9.8 ml/min; Potassium 4.1 mmol/L (3.5-5.1)
--- NOTE | 2023-04-08 09:12 | Nephrology Progress Note ---
Date of Service April 08, 2023 Assessment & Plan (1) ESRD (end stage renal disease): Plan: Last HD was Tuesday. Tolerated treatment well. Unfortunately, we were not able to successfully use the AVG for the entire treatment. No difficulty cannulating but high arterial pressures. The treatment was completed using TDC. Anxiolytics and EMLA used for comfort. There is a component of anxiety with needle placement and Xanax has been prescribed to be given prior to HD. AVG placed by Dr. Oshea on 11/26/22. We will attempt AVG use again tomorrow. BP and volume status are acceptable this AM. Electrolytes controlled. We will hold HD today. Messi is going to bone marrow biopsy. Plan will be to resume TTS HD schedule tomorrow. Outpatient Rx is TTS 3.5 hrs, 400/800, 3K, 137Na. EDW 64.5 kg. Renal diet. Sevelamer QAC. (2) Acute respiratory failure with hypoxia: Plan: Attributed to pneumonia. Remains on levofloxacin. O2 weaned to 1 L NC. Volume status acceptable. (3) H/O stem cell transplant: Plan: History of multiple myeloma treated with bone marrow transplant in 2013. Notable cystopenia. This was initially attributed to sepsis. Hematology consultation appreciated. Bone marrow scheduled for today. No heparin with HD. (4) Anemia: Plan: Avoid iron with dialysis due to history of iron overload. Epogen 49272 units with HD 04/06. Appreciate hematology consultation. Peripheral smear reviewed. No evidence of TMA. Admission and Anticipated Discharge Date Admission Date: April 01, 2023 Subjective No acute events overnight. Messi was resting comfortably in bed this AM. He remains weak. Denies fevers or chills. He is breathing comfortably. He was out of bed to the bathroom. Denies any lightheadedness or dizziness. Refusing rehab at discharge. Appetite fair. Denies any bleeding. Review of Systems Review of Systems: All systems reviewed & are unremarkable except as noted in HPI & below Physical Exam Constitutional: well developed, + thin and + frail appearing; no acute distress Eyes: + anicteric sclerae; no conjunctival abn ormality ENMT: Mouth: + dry oral mucous membranes Respiratory: normal respiratory effort; no respiratory distress Auscultation: lungs clear to auscultation bilaterally Cardiovascular: Rate/Rhythm: regular rate and regular rhythm Heart Sounds: + murmur (mechanical aortic valve sound) Extremities: + AV fistula (LUE BC AVG); no edema Musculoskeletal: Extremities: no cyanosis, no clubbing and no petechiae Skin: + turgor decreased; no jaundice Neurologic: moves all extremities and awake; not confused Psychiatric: Orientation: alert, oriented to person and oriented to place Results & Data Vital Signs (Past 12 Hours) Vital Signs Temp Pulse Pulse Pulse Resp BP Pulse Ox 04/08/23 07:52 36.6 C 87 18 118/48 L 98 04/08/23 02:54 36.7 C 73 18 117/55 L 94 04/08/23 00:21 88 04/07/23 23:01 36.6 C 87 18 115/53 L 99 O2 Del Method O2 Flow Rate 04/08/23 07:52 Nasal Cannula 1 04/08/23 02:54 Nasal Cannula 04/08/23 00:21 04/07/23 23:01 Nasal Cannula Laboratory Results Laboratory Results - last 24 hr 04/07/23 04/07/23 04/08/23 06:01 11:11 06:35 WBC 2.17 L RBC 2.75 L Hgb 8.0 L Hct 23.6 L MCV 85.8 MCH 29.1 MCHC 33.9 RDW Std Deviation 54.0 H RDW Coeff of Berto 17.3 H Plt Count 20 L* D Immature Gran % (Auto) 0.6 0.5 Neut % (Auto) 53.5 54.2 Lymph % (Auto) 31.0 28.6 [place] % (Auto) 14.3 15.7 Eos % (Auto) 0.6 0.5 Baso % (Auto) 0.0 0.5 Neut # (Auto) 0.90 L* 1.18 L Lymph # (Auto) 0.52 L 0.62 L [place] # (Auto) 0.24 0.34 Eos # (Auto) 0.01 0.01 Baso # (Auto) 0.00 0.01 Immature Gran # (Auto) 0.01 0.01 Polychromasia 1+ Tear Drop Cells 1+ Ovalocytes 1+ PT 18.5 H INR 1.7 H Sodium 135 L Potassium 4.1 Chloride 105 Carbon Dioxide 23 Anion Gap 7 BUN 56 H Creatinine 5.18 H* D Est Cr Clr Drug Dosing 9.8 Est GFR ( Amer) 11.3 Est GFR (Non-Af Amer) 9.8 BUN/Creatinine Ratio 10.8 Glucose 130 H Calcium 7.5 L Procalcitonin 4.74 H PG Care Time/CCT Total # of Minutes Spent Total Time Spent with Patient: Total time spent is greater than 50% in coordination of care (as documented) at patient's floor/unit and/or counseling patient: Coding Level of Care Code 31393 SUB INP/OBS CARE 3/50MIN Diagnoses ESRD (end stage renal disease) N18.6 Acute respiratory failure with hypoxia J96.01 H/O stem cell transplant Z94.84 Anemia D64.9
--- NOTE | 2023-04-08 10:46 | Hospitalist Progress Note ---
Date of Service April 08, 2023 Assessment & Plan (1) Pneumonia: Plan: suspect aspiration, video swallow eval showed silent aspiration Was initially on IV cefepime but discontinued due to thrombocytopenia currently on Levaquin, last dose will be tomorrow 04/09/2023 Blood cultures negative in the past 48 hours (2) Thrombocytopenia: Plan: Some improvement in thrombocytopenia, 20,000 today compared to 13,000 yesterday Hematology on consult Requested blood smear Transfuse if platelet drops below 10,000 or if there is bleeding. (3) Pancytopenia: Plan: Patient has a history of multiple myeloma Although could be developing MDS Plan is for bone marrow biopsy (4) Acute respiratory failure with hypoxia: Plan: Now resolved Patient currently on room air (5) Fever: Plan: Patient has been afebrile for the past 48 hours Biofire PCR negative blood culture Coag negative staph , probably contamination urine culture is pending (6) Elevated INR: Plan: On for [facility] metallic AVR and a. fib with usual goal per cardiology notes 2-3. No active bleeding suspected but given concurrent platelets 35 in addition to INR > 8 this warrants treatment Vitamin K 2.5mg IV, repeat INR later today to check coming down, restart warfarin once < 3.5 Usual warfarin dosing 1mg x2 days, 0.5mg all other days but recently increased to 1mg x3 days, 0.5mg all other days INR 1.2 , platelets 20,000 today, continue to hold Coumadin in view of thrombocytopenia hem/onc consulted (7) Hemodialysis patient: Plan: Continue hemodialysis (8) Paroxysmal atrial fibrillation: Plan: Currently in NSR Anticoagulation on hold as INR supratherapeutic Continue metoprolol tartrate 50mg PO BID hold Coumadin due to low PLT (9) H/O stem cell transplant: Plan: hem/onc consulted (10) Indwelling Chandler catheter present: Plan: Replaced in the ER, UA pending Restart tamsulosin when stable (11) Bacteremia: Plan: staph bacteremia, coag negative , probably contamination perm-a cath in place repeat blood cultures showed no growth in the last 48 hours hold Vancomycin ECHO no obvious vegetation (12) Severe sepsis: Plan: Now resolved blood culture is positive for coag negative staph which probably is a contaminant received Vancomycin , Cefepime transition to Levaquin due to thrombocytopenia No growth in the past 48 hours Patient will complete the course of antibiotics tomorrow 04/09/2023 (13) Cardiomyopathy: Plan: EF 35 -40 % probably has CHF acute systolic continue HD cardiology follows (14) Physical deconditioning: Plan: Patient is severely physically deconditioned Physical therapy recommends acute rehab However I spoke with the and she said she will try to convince him to go to rehab (15) Constipated: Plan: Resolved, patient had a bowel movement yesterday Plan VTE prophylaxis - supratherapeutic INR, warfarin on hold Diet - dialysis renal Disposition -continue hospitalization Awaiting PT eval Admission and Anticipated Discharge Date Admission Date: April 01, 2023 Subjective Patient seen and examined, lying quietly in bed although still looks weak but much better compared to few days ago. Still has poor appetite Review of Systems Review of Systems: All systems reviewed are negative, apart from the ones contained in the history. Physical Exam Physical Exam: The patient is awake, alert and oriented 3, well developed and well nourished, normocephalic and atraumatic, lying in bed and in no acute distress. HEENT--PERRL, EOMI, mucous membranes and oropharynx mildly dry Neck--supple. No JVD. No bruits. Thyroid normal, trachea midline, no adenopathy. Heart--normal S1 and S2. No murmurs, rubs or gallops. Lungs--clear bilaterally, no respiratory distress, no accessory muscle use. Abdomen--normal bowel sounds and soft. Mild epigastric and left sided abdominal pain Extremities--no cyanosis or clubbing. No edema. Dermatologic--normal skin turgor, normal color, no abnormal lymph nodes, no rash. Neurologic--cranial nerves II through XII grossly intact. Rheumatologic--normal range of motion. Psychiatric--normal affect. Results & Data Results & Data Vital Signs (Past 12 Hours) Vital Signs Temp Pulse Pulse Pulse Resp BP Pulse Ox 04/08/23 08:00 90 04/08/23 08:00 04/08/23 07:52 97.9 F 87 18 118/48 L 98 04/08/23 02:54 98.1 F 73 18 117/55 L 94 04/08/23 00:21 88 04/07/23 23:01 97.9 F 87 18 115/53 L 99 O2 Del Method O2 Flow Rate 04/08/23 08:00 04/08/23 08:00 Nasal Cannula 3 04/08/23 07:52 Nasal Cannula 1 04/08/23 02:54 Nasal Cannula 04/08/23 00:21 04/07/23 23:01 Nasal Cannula PG Care Time/CCT Total # of Minutes Spent Total Time Spent with Patient: Total time spent is greater than 50% in coordination of care (as documented) at patient's floor/unit and/or counseling patient: Coding Level of Care Code 49975 SUB INP/OBS CARE 2/35MIN Diagnoses Pneumonia J18.9 Pneumonia type: aspiration pneumonia Thrombocytopenia D69.6 Pancytopenia D61.818 Acute respiratory failure with hypoxia J96.01 Fever R50.9 Elevated INR R79.1 Hemodialysis patient Z99.2 Paroxysmal atrial fibrillation I48.0 H/O stem cell transplant Z94.84 Indwelling Chandler catheter present Z97.8 Bacteremia R78.81 Severe sepsis A41.9; R65.20 Cardiomyopathy I42.9 Physical deconditioning R53.81 Constipated K59.00 Time Spent (min) 35 (1) Pneumonia Pneumonia type: aspiration pneumonia
[2023-04-08] MEDS: ACETAMINOPHEN 1000 MG/100 ML IV IV ONE (11:00)
[2023-04-08] MEDS: fentaNYL citrate PF 100 MCG/2 ML VIAL ONE (11:30)
--- NOTE | 2023-04-08 12:45 | CT Scan Report ---
CT-GUIDED BONE MARROW BIOPSY CLINICAL HISTORY: Anemia PROCEDURE: Procedure and risks were explained. Informed consent was obtained. A final timeout was com pleted. The patient was placed prone on the CT exam table. The left gluteal region was prepped and dr aped in sterile fashion. 1% buffered lidocaine was utilized for skin anesthesia. The patient received 12.5 mcg fentanyl and 1 g Tylenol IV. Utilizing CT guidance, an 11-gauge bone biopsy needle was advanced into the left iliac bone. Multiple aspirates and one bone core was obtained and given to the lab. The needle was removed and Band-Aid a pplied. The patient tolerated the procedure well. Vital signs will be monitored post procedure. IMPRESSION: Bone marrow biopsy as above. Performed, dictated, and signed by Ben Garcia PA-C; to be co-signed by Dr. Cuauhtemoc Fuchs. Electronically signed by: Cuauhtemoc Fuchs M.D. 04/08/2023 12:52 PM
--- NOTE | 2023-04-09 09:00 | Nephrology Progress Note ---
Date of Service April 09, 2023 Assessment & Plan (1) ESRD (end stage renal disease): Plan: * Outpatient Rx is TTS 3.5 hrs, 400/800, 3K, 137Na. EDW 64.5 kg * Renal diet. Sevelamer QAC * Will provide heparin free HD today. Patient requests the use of his IJ THC (2) Acute respiratory failure with hypoxia: Plan: * Attributed to aspiration pneumonia. 04/05/23 video swallowing study revealed silent aspiration w/ thin barium * Remains on levofloxacin * O2 weaned to 1 L NC * Volume status acceptable (3) H/O stem cell transplant: Plan: * Multiple myeloma s/p bone marrow transplant 2013 * Now pancytopenia s/p CT guided bone marrow biopsy 04/08/23 (4) Anemia: Plan: * High ferritin. Hold IV iron * Epogen 13645 units with HD 04/06 * Peripheral smear negative for schistocytes/TMA Admission and Anticipated Discharge Date Admission Date: April 01, 2023 Subjective Mr. Londono was evaluated in his hospital room this morning. He denied fever, productive cough, abdominal pain or diarrhea. His primary concerns were weakness and discomfort from his bone marrow biopsy. He declines the use of his AVG w/ HD today Review of Systems Constitutional: no fever Eyes: no worsening vision Ear, Nose, Mouth, Throat: no problem reported Respiratory: no cough and no dyspnea Cardiovascular: no chest pain Gastrointestinal: no abdominal pain, no nausea, no vomiting and no diarrhea/loose stools Genitourinary: no problem reported Physical Exam Constitutional: + frail appearing; not in distress Eyes: PERRL, conjunctivae normal, anicteric sclerae ENMT: external ear and nose normal, oropharynx normal Neck: trachea midline, no thyromegaly Respiratory: normal respiratory effort, lungs clear to auscultation Cardiovascular: RRR, no murmur, no edema Extremities: + AV fistula (LUE BC AVG + bruit) Gastrointestinal (Abdomen): normal bowel sounds, soft, nontender, no hepatosplenomegaly Musculoskeletal: Extremities: no cyanosis Skin: no rashes, warm and dry Neurologic: Speech / Cognition: normal speech and normal cognition Psychiatric: Orientation: oriented x 3 Affect: + flat affect Results & Data Vital Signs (Past 12 Hours) Vital Signs Temp Pulse Pulse Pulse Resp BP Pulse Ox 04/09/23 07:51 36.7 C 86 16 117/59 L 98 02/17/24 04:00 36.8 C 83 18 110/63 97 04/09/23 00:01 36.6 C 85 19 119/54 L 99 04/08/23 23:00 81 O2 Del Method O2 Flow Rate 04/09/23 07:51 Nasal Cannula 1 04/09/23 04:00 Nasal Cannula 2 04/09/23 00:01 Nasal Cannula 2 04/08/23 23:00 Laboratory Results Laboratory Results - last 24 hr 04/08/23 04/09/23 11:30 08:39 WBC 2.42 L RBC 2.73 L Hgb 7.9 L Hct 23.5 L MCV 86.1 MCH 28.9 MCHC 33.6 RDW Std Deviation 54.8 H RDW Coeff of Berto 17.6 H Plt Count 28 L* Immature Gran % (Auto) 0.8 Neut % (Auto) 56.2 Lymph % (Auto) 26.9 [place] % (Auto) 14.9 Eos % (Auto) 0.8 Baso % (Auto) 0.4 Neut # (Auto) 1.36 L Lymph # (Auto) 0.65 L [place] # (Auto) 0.36 Eos # (Auto) 0.02 Baso # (Auto) 0.01 Immature Gran # (Auto) 0.02 Polychromasia 1+ Ovalocytes 1+ PT 15.5 H INR 1.4 H Sodium 135 L Potassium 4.2 Chloride 106 Carbon Dioxide 21 Anion Gap 8 BUN 68 H Creatinine 6.43 H* D Est Cr Clr Drug Dosing 8.1 Est GFR ( Amer) 8.7 Est GFR (Non-Af Amer) 7.5 BUN/Creatinine Ratio 10.6 Glucose 127 H Calcium 7.5 L Flow Cytometry Comment Pending [facility] Pending PG Care Time/CCT Total # of Minutes Spent Total Time Spent with Patient: Total time spent is greater than 50% in coordination of care (as documented) at patient's floor/unit and/or counseling patient: Coding Level of Care Code 25231 SUB INP/OBS CARE 3/50MIN Diagnoses ESRD (end stage renal disease) N18.6 Acute respiratory failure with hypoxia J96.01 H/O stem cell transplant Z94.84 Anemia D64.9
[2023-04-09 09:14] LABS: BUN Creatinine Ratio 10.6 (10-20); Calcium 7.5 mg/dl (8.6-10.3); Creatinine Clr Calc Pharmacy 8.1 ml/min; Est GFR (African American) 8.7 ml/min; Est GFR (Non-African American) 7.5 ml/min; Potassium 4.2 mmol/L (3.5-5.1)
[2023-04-09 09:22] LABS: INR 1.4 (0.9-1.1); Prothrombin Time 15.5 Seconds (9.0-12.0)
[2023-04-09] MEDS: LIDOCAINE/PRILOCAINE 2.5% EA CRM EXT ONE (09:24)
[2023-04-09 10:00] LABS: Hematocrit (blood only) 23.5 % (42.0-52.0); Hemoglobin 7.9 g/dl (14.0-18.0); Mean Corpuscular Hemoglobin 28.9 pg (25.0-34.0); Mean Corpuscular Hgb Conc 33.6 g/dL (32.0-36.0); Mean Corpuscular Volume 86.1 fL (80.0-100.0); Platelet Count 28 K/uL (130-400); RDW Coefficient of Variation 17.6 % (11.5-14.5); RDW Standard Deviation 54.8 fL (36.4-46.3); Red Blood Count 2.73 M/uL (4.70-6.10); White Blood Count 2.42 K/ul (4.8-10.8)
[2023-04-09 10:18] LABS: Basophils # (auto) 0.01 K/uL (0.00-0.20); Basophils % (auto) 0.4 %; Eosinophils # (auto) 0.02 K/uL (0.00-0.50); Eosinophils % (auto) 0.8 %; Immature Granulocytes # (auto) 0.02 K/uL (0.01-0.20); Immature Granulocytes % (auto) 0.8 %; Lymphocytes # (auto) 0.65 K/uL (1.20-3.40); Lymphocytes % (auto) 26.9 %; Monocytes # (auto) 0.36 K/uL (0.11-0.59); Monocytes % (auto) 14.9 %; Neutrophils # (auto) 1.36 K/uL (1.40-6.50); Neutrophils % (auto) 56.2 %; Ovalocytes 1+; Polychromasia 1+
--- NOTE | 2023-04-09 12:50 | Hospitalist Progress Note ---
Date of Service April 09, 2023 Assessment & Plan (1) Pneumonia: Plan: suspect aspiration, video swallow eval showed silent aspiration Was initially on IV cefepime but discontinued due to thrombocytopenia Completed a course of IV antibiotics Cultures have been negative. (2) Thrombocytopenia: Plan: Some improvement in thrombocytopenia, 30,000 today Hematology on consult Blood smear did not show any evidence of schistocytes Transfuse if platelet drops below 10,000 or if there is bleeding. (3) Pancytopenia: Plan: Patient has a history of multiple myeloma Although could be developing MDS Bone marrow biopsy has been done Result pending (4) Acute respiratory failure with hypoxia: Plan: Now resolved Patient currently on room air (5) Fever: Plan: Patient has been afebrile for the past 48 hours Biofire PCR negative blood culture Coag negative staph , probably contamination urine culture is pending (6) Elevated INR: Plan: On for [facility] metallic AVR and a. fib with usual goal per cardiology notes 2-3. No active bleeding suspected but given concurrent platelets 35 in addition to INR > 8 this warrants treatment Vitamin K 2.5mg IV, repeat INR later today to check coming down, restart warfarin once < 3.5 Usual warfarin dosing 1mg x2 days, 0.5mg all other days but recently increased to 1mg x3 days, 0.5mg all other days INR 1.2 , platelets 20,000 today, continue to hold Coumadin in view of thrombocytopenia hem/onc consulted (7) Hemodialysis patient: Plan: Continue hemodialysis (8) Paroxysmal atrial fibrillation: Plan: Currently in NSR Anticoagulation on hold as INR supratherapeutic Continue metoprolol tartrate 50mg PO BID hold Coumadin due to low PLT (9) H/O stem cell transplant: Plan: hem/onc consulted (10) Indwelling Chandler catheter present: Plan: Replaced in the ER, UA pending Restart tamsulosin when stable (11) Bacteremia: Plan: staph bacteremia, coag negative , probably contamination perm-a cath in place repeat blood cultures showed no growth Completed a course of antibiotics ECHO no obvious vegetation (12) Severe sepsis: Plan: Now resolved blood culture is positive for coag negative staph which probably is a contaminant received Vancomycin , Cefepime transition to Levaquin due to thrombocytopenia No growth in the past 48 hours Patient will complete the course of antibiotics tomorrow 04/09/2023 (13) Cardiomyopathy: Plan: EF 35 -40 % probably has CHF acute systolic continue HD cardiology follows (14) Physical deconditioning: Plan: Patient is severely physically deconditioned Physical therapy recommends acute rehab However I spoke with the and she said she will try to convince him to go to rehab (15) Constipated: Plan: Resolved, patient had a bowel movement yesterday Plan VTE prophylaxis - supratherapeutic INR, warfarin on hold Diet - dialysis renal Disposition -continue hospitalization Awaiting PT eval Admission and Anticipated Discharge Date Admission Date: April 01, 2023 Subjective Patient seen and examined today, he is stable following bone marrow biopsy, was asking if he would have hemodialysis today. Review of Systems Review of Systems: All systems reviewed are negative, apart from the ones contained in the history. Physical Exam Physical Exam: The patient is awake, alert and oriented 3, frail and chronically ill looking HEENT--PERRL, EOMI, mucous membranes and oropharynx mildly dry Neck--supple. No JVD. No bruits. Thyroid normal, trachea midline, no adenopathy. Heart--normal S1 and S2. No murmurs, rubs or gallops. Lungs--clear bilaterally, no respiratory distress, no accessory muscle use. Abdomen--normal bowel sounds and soft. Extremities--no cyanosis or clubbing. No edema. Dermatologic--normal skin turgor, normal color, no abnormal lymph nodes, no rash. Neurologic--cranial nerves II through XII grossly intact. Rheumatologic--normal range of motion. Psychiatric--normal affect. Results & Data Results & Data Vital Signs (Past 12 Hours) Vital Signs Temp Pulse Pulse Pulse Resp BP BP 04/09/23 12:30 85 108/47 L 04/09/23 12:00 82 105/54 L 04/09/23 11:30 83 106/52 L 04/09/23 11:00 86 106/57 L 04/09/23 10:35 97.7 F 85 04/09/23 07:51 98.1 F 86 16 117/59 L 04/09/23 04:00 98.2 F 83 18 110/63 Pulse Ox O2 Del Method O2 Flow Rate 04/09/23 12:30 04/09/23 12:00 04/09/23 11:30 04/09/23 11:00 04/09/23 10:35 04/09/23 07:51 98 Nasal Cannula 1 04/09/23 04:00 97 Nasal Cannula 2 PG Care Time/CCT Total # of Minutes Spent Total Time Spent with Patient: Total time spent is greater than 50% in coordination of care (as documented) at patient's floor/unit and/or counseling patient: Coding Level of Care Code 84368 SUB INP/OBS CARE 2/35MIN Diagnoses Pneumonia J18.9 Pneumonia type: aspiration pneumonia Thrombocytopenia D69.6 Pancytopenia D61.818 Acute respiratory failure with hypoxia J96.01 Fever R50.9 Elevated INR R79.1 Hemodialysis patient Z99.2 Paroxysmal atrial fibrillation I48.0 H/O stem cell transplant Z94.84 Indwelling Chandler catheter present Z97.8 Bacteremia R78.81 Severe sepsis A41.9; R65.20 Cardiomyopathy I42.9 Physical deconditioning R53.81 Constipated K59.00 Time Spent (min) 35 (1) Pneumonia Pneumonia type: aspiration pneumonia
[2023-04-10 07:04] LABS: BUN Creatinine Ratio 8.3 (10-20); Basophils # (auto) 0.01 K/uL (0.00-0.20); Basophils % (auto) 0.4 %; Calcium 7.4 mg/dl (8.6-10.3); Creatinine Clr Calc Pharmacy 12.4 ml/min; Eosinophils # (auto) 0.04 K/uL (0.00-0.50); Eosinophils % (auto) 1.4 %; Est GFR (Non-African American) 12.9 ml/min; Hemoglobin 7.7 g/dl (14.0-18.0); Immature Granulocytes # (auto) 0.01 K/uL (0.01-0.20); Immature Granulocytes % (auto) 0.4 %; Lymphocytes # (auto) 0.79 K/uL (1.20-3.40); Lymphocytes % (auto) 27.7 %; Mean Corpuscular Hemoglobin 28.8 pg (25.0-34.0); Mean Corpuscular Hgb Conc 33.5 g/dL (32.0-36.0); Mean Corpuscular Volume 86.1 fL (80.0-100.0); Monocytes # (auto) 0.46 K/uL (0.11-0.59); Monocytes % (auto) 16.1 %; Neutrophils # (auto) 1.54 K/uL (1.40-6.50); Ovalocytes 1+; Platelet Count 37 K/uL (130-400); Polychromasia 1+; Potassium 4.1 mmol/L (3.5-5.1); RDW Coefficient of Variation 17.5 % (11.5-14.5); RDW Standard Deviation 54.7 fL (36.4-46.3); Red Blood Count 2.67 M/uL (4.70-6.10); Tear Drop Cells 1+; White Blood Count 2.85 K/ul (4.8-10.8)
[2023-04-10 07:56] LABS: INR 1.4 (0.9-1.1); Prothrombin Time 14.6 Seconds (9.0-12.0)
--- NOTE | 2023-04-10 09:05 | Nephrology Progress Note ---
Date of Service April 10, 2023 Assessment & Plan (1) ESRD (end stage renal disease): Plan: * Outpatient Rx is TTS 3.5 hrs, 400/800, 3K, 137Na. EDW 64.5 kg * Renal diet. Sevelamer QAC * Volume status and electrolyte balance are acceptable. No acute indication for HD today (2) Acute respiratory failure with hypoxia: Plan: * Attributed to aspiration pneumonia. 04/05/23 video swallowing study revealed silent aspiration w/ thin barium. No dietary change recommended at this time * O2 weaned to 1 L NC (3) H/O stem cell transplant: Plan: * Multiple myeloma s/p bone marrow transplant 2013 * Now pancytopenia s/p CT guided bone marrow biopsy 04/08/23 - results pending (4) Anemia: Plan: * High ferritin. Hold IV iron * Epogen 36597 units with HD 04/06 * Peripheral smear negative for schistocytes/TMA (5) Physical deconditioning: Plan: * 04/07/23 PT evaluation - moderate assistance to sit up, ambulated 30' w/ rolling walker, fatigues easily Admission and Anticipated Discharge Date Admission Date: April 01, 2023 Subjective Mr. Londono was evaluated in his hospital room this morning. He denied fever, productive cough, abdominal pain or diarrhea. His primary concerns is weakness. He reports no complications w/ HD yesterday. He did not allow the use of his AVG. IJ TCC was used as vascular access. Mr. Londono now reports that he is open to transfer to outpatient PT following his hospitalizaton Review of Systems Constitutional: no fever Eyes: no worsening vision Ear, Nose, Mouth, Throat: no problem reported Respiratory: no cough and no dyspnea Cardiovascular: no chest pain Gastrointestinal: no abdominal pain, no nausea, no vomiting and no diarrhea/loose stools Genitourinary: no problem reported Physical Exam Constitutional: + frail appearing; not in distress Eyes: PERRL, conjunctivae normal, anicteric sclerae ENMT: external ear and nose normal, oropharynx normal Neck: trachea midline, no thyromegaly Respiratory: normal respiratory effort, lungs clear to auscultation Cardiovascular: RRR, no murmur, no edema Extremities: + AV fistula (LUE BC AVG + bruit) Gastrointestinal (Abdomen): normal bowel sounds, soft, nontender, no hepatosplenomegaly Musculoskeletal: Extremities: no cyanosis Skin: no rashes, warm and dry Neurologic: Speech / Cognition: normal speech and normal cognition Psychiatric: Orientation: oriented x 3 Affect: + flat affect Results & Data Vital Signs (Past 12 Hours) Vital Signs Temp Pulse Pulse Resp BP Pulse Ox O2 Del Method 04/10/23 03:49 37.0 C 83 21 117/53 L 100 Nasal Cannula 04/10/23 00:42 Nasal Cannula 04/10/23 00:35 Nasal Cannula 04/10/23 00:16 37.0 C 86 17 118/66 98 Nasal Cannula O2 Flow Rate 04/10/23 03:49 1 04/10/23 00:42 2 04/10/23 00:35 2 04/10/23 00:16 1 Laboratory Results Laboratory Results - last 24 hr 04/09/23 04/09/23 04/10/23 08:39 08:44 06:09 WBC 2.42 L 2.85 L RBC 2.73 L 2.67 L Hgb 7.9 L 7.7 L Hct 23.5 L 23.0 L MCV 86.1 86.1 MCH 28.9 28.8 MCHC 33.6 33.5 RDW Std Deviation 54.8 H 54.7 H RDW Coeff of Berto 17.6 H 17.5 H Plt Count 28 L* 37 L Immature Gran % (Auto) 0.8 0.4 Neut % (Auto) 56.2 54.0 Lymph % (Auto) 26.9 27.7 [place] % (Auto) 14.9 16.1 Eos % (Auto) 0.8 1.4 Baso % (Auto) 0.4 0.4 Neut # (Auto) 1.36 L 1.54 Lymph # (Auto) 0.65 L 0.79 L [place] # (Auto) 0.36 0.46 Eos # (Auto) 0.02 0.04 Baso # (Auto) 0.01 0.01 Immature Gran # (Auto) 0.02 0.01 Polychromasia 1+ 1+ Tear Drop Cells 1+ Ovalocytes 1+ 1+ PT 15.5 H 14.6 H INR 1.4 H 1.4 H Sodium 135 L 136 Potassium 4.2 4.1 Chloride 106 106 Carbon Dioxide 21 23 Anion Gap 8 7 BUN 68 H 34 H D Creatinine 6.43 H* D 4.11 H D Est Cr Clr Drug Dosing 8.1 12.4 Est GFR ( Amer) 8.7 15.0 Est GFR (Non-Af Amer) 7.5 12.9 BUN/Creatinine Ratio 10.6 8.3 L Glucose 127 H 103 H Calcium 7.5 L 7.4 L Hep Bs Antigen Pending Hep Bs Ag Confirmation Pending Diagnostic Findings 04/08/23 Bone Marrow Bx - pending PG Care Time/CCT Total # of Minutes Spent Total Time Spent with Patient: Total time spent is greater than 50% in coordination of care (as documented) at patient's floor/unit and/or counseling patient: Coding Level of Care Code 86758 SUB INP/OBS CARE 3/50MIN Diagnoses ESRD (end stage renal disease) N18.6 Acute respiratory failure with hypoxia J96.01 H/O stem cell transplant Z94.84 Anemia D64.9 Physical deconditioning R53.81
--- NOTE | 2023-04-10 11:33 | Hospitalist Progress Note ---
Date of Service April 10, 2023 Assessment & Plan (1) Pneumonia: Plan: suspect aspiration, video swallow eval showed silent aspiration Was initially on IV cefepime but discontinued due to thrombocytopenia Completed a course of IV antibiotics Cultures have been negative. (2) Thrombocytopenia: Plan: Thrombocytopenia keeps improving, 37,000 today Hematology on consult Blood smear shows anisocytosis, ovalocytes and reduced number of lymphocytes and a single pml Leukocyte which is clearly insufficient to suggest myelodysplasia. Transfuse if platelet drops below 10,000 or if there is bleeding. (3) Pancytopenia: Plan: Patient has a history of multiple myeloma Bone marrow biopsy has been done, result pending Blood smear shows anisocytosis, ovalocytes and reduced number of lymphocytes and a single pml Leukocyte which is clearly insufficient to suggest myelodysplasia. (4) Acute respiratory failure with hypoxia: Plan: Now resolved Patient currently on room air (5) Fever: Plan: Patient has been afebrile for the past 72 Biofire PCR negative blood culture Coag negative staph , probably contamination urine culture is pending (6) Elevated INR: Plan: On for [facility] metallic AVR and a. fib with usual goal per cardiology notes 2-3. No active bleeding suspected but given concurrent platelets 35 in addition to INR > 8 this warrants treatment Vitamin K 2.5mg IV, repeat INR later today to check coming down, restart warfarin once < 3.5 Usual warfarin dosing 1mg x2 days, 0.5mg all other days but recently increased to 1mg x3 days, 0.5mg all other days INR 1.2 , platelets 37,000 today, continue to hold Coumadin in view of thrombocytopenia hem/onc consulted Probably resume Coumadin when platelets returned to normal (7) Hemodialysis patient: Plan: Continue hemodialysis (8) Paroxysmal atrial fibrillation: Plan: Currently in NSR Anticoagulation on hold as INR supratherapeutic Continue metoprolol tartrate 50mg PO BID hold Coumadin due to low PLT (9) H/O stem cell transplant: Plan: hem/onc consulted (10) Indwelling Chandler catheter present: Plan: Replaced in the ER, UA pending Restart tamsulosin when stable (11) Bacteremia: Plan: staph bacteremia, coag negative , probably contamination perm-a cath in place repeat blood cultures showed no growth Completed a course of antibiotics ECHO no obvious vegetation (12) Severe sepsis: Plan: Now resolved blood culture is positive for coag negative staph which probably is a contaminant Completed course of antibiotics (13) Cardiomyopathy: Plan: EF 35 -40 % probably has CHF acute systolic continue HD cardiology follows (14) Physical deconditioning: Plan: Patient is severely physically deconditioned Physical therapy recommends acute rehab However I spoke with the and she said she will try to convince him to go to rehab (15) Constipated: Plan: Resolved, Plan VTE prophylaxis - supratherapeutic INR, warfarin on hold Diet - dialysis renal Disposition -continue hospitalization Hopefully patient will agree to go to rehab Admission and Anticipated Discharge Date Admission Date: April 01, 2023 Review of Systems Review of Systems: All systems reviewed are negative, apart from the ones contained in the history. Physical Exam Physical Exam: The patient is awake, alert and oriented 3, frail and chronically ill looking HEENT--PERRL, EOMI, mucous membranes and oropharynx mildly dry Neck--supple. No JVD. No bruits. Thyroid normal, trachea midline, no adenopathy. Heart--normal S1 and S2. No murmurs, rubs or gallops. Lungs--clear bilaterally, no respiratory distress, no accessory muscle use. Abdomen--normal bowel sounds and soft. Extremities--no cyanosis or clubbing. No edema. Dermatologic--normal skin turgor, normal color, no abnormal lymph nodes, no rash. Neurologic--cranial nerves II through XII grossly intact. Rheumatologic--normal range of motion. Psychiatric--normal affect. Results & Data Results & Data Vital Signs (Past 12 Hours) Vital Signs Temp Pulse Pulse Resp BP Pulse Ox O2 Del Method 04/10/23 08:00 97.5 F L 87 20 109/69 98 Nasal Cannula 04/10/23 03:49 98.6 F 83 21 117/53 L 100 Nasal Cannula 04/10/23 00:42 Nasal Cannula 04/10/23 00:35 Nasal Cannula 04/10/23 00:16 98.6 F 86 17 118/66 98 Nasal Cannula O2 Flow Rate 04/10/23 08:00 1 04/10/23 03:49 1 04/10/23 00:42 2 04/10/23 00:35 2 04/10/23 00:16 1 PG Care Time/CCT Total # of Minutes Spent Total Time Spent with Patient: Total time spent is greater than 50% in coordination of care (as documented) at patient's floor/unit and/or counseling patient: Coding Level of Care Code 34640 SUB INP/OBS CARE 2/35MIN Diagnoses Pneumonia J18.9 Pneumonia type: aspiration pneumonia Thrombocytopenia D69.6 Pancytopenia D61.818 Acute respiratory failure with hypoxia J96.01 Fever R50.9 Elevated INR R79.1 Hemodialysis patient Z99.2 Paroxysmal atrial fibrillation I48.0 H/O stem cell transplant Z94.84 Indwelling Chandler catheter present Z97.8 Bacteremia R78.81 Severe sepsis A41.9; R65.20 Cardiomyopathy I42.9 Physical deconditioning R53.81 Constipated K59.00 Time Spent (min) 35 (1) Pneumonia Pneumonia type: aspiration pneumonia
[2023-04-11 06:45] LABS: Hematocrit (blood only) 25.7 % (42.0-52.0); Hemoglobin 8.4 g/dl (14.0-18.0); Mean Corpuscular Hgb Conc 32.7 g/dL (32.0-36.0); Mean Corpuscular Volume 88.6 fL (80.0-100.0); Platelet Count 45 K/uL (130-400); RDW Coefficient of Variation 17.9 % (11.5-14.5); RDW Standard Deviation 56.5 fL (36.4-46.3); White Blood Count 4.03 K/ul (4.8-10.8)
[2023-04-11 06:46] LABS: INR 1.3 (0.9-1.1); Prothrombin Time 13.7 Seconds (9.0-12.0)
[2023-04-11 06:58] LABS: Calcium 7.6 mg/dl (8.6-10.3); Potassium 4.2 mmol/L (3.5-5.1)
[2023-04-11 07:10] LABS: BUN Creatinine Ratio 8.4 (10-20); Creatinine Clr Calc Pharmacy 9.2 ml/min; Est GFR (African American) 10.3 ml/min; Est GFR (Non-African American) 8.9 ml/min
--- NOTE | 2023-04-11 08:42 | Nephrology Progress Note ---
Date of Service April 11, 2023 Assessment & Plan (1) ESRD (end stage renal disease): Plan: * Outpatient Rx is TTS 3.5 hrs, 400/800, 3K, 137Na. EDW 64.5 kg * Renal diet. Sevelamer QAC * Volume status and electrolyte balance are acceptable. No acute indication for HD today. Will plan next HD for am (2) Acute respiratory failure with hypoxia: Plan: * Attributed to aspiration pneumonia. 04/05/23 video swallowing study revealed silent aspiration w/ thin barium. No dietary change recommended at this time * Now breathing comfortably on RA (3) H/O stem cell transplant: Plan: * Multiple myeloma s/p bone marrow transplant 2013 * Now pancytopenia s/p CT guided bone marrow biopsy 04/08/23 - results pending * Pancytopenia is mildly improved this am (4) Anemia: Plan: * High ferritin. Hold IV iron * Epogen 81218 units with HD 04/06 * Peripheral smear negative for schistocytes/TMA (5) Physical deconditioning: Plan: * 04/07/23 PT evaluation - moderate assistance to sit up, ambulated 30' w/ rolling walker, fatigues easily Admission and Anticipated Discharge Date Admission Date: April 01, 2023 Subjective Mr. Londono was evaluated in his hospital room this morning. He denied fever, productive cough, or abdominal pain. He did report one episode of diarrhea last evening. Mr. Londono now reports that he is open to transfer to outpatient PT following his hospitalization Review of Systems Constitutional: no fever Eyes: no worsening vision Ear, Nose, Mouth, Throat: no problem reported Respiratory: no cough and no dyspnea Cardiovascular: no chest pain Gastrointestinal: no abdominal pain, no nausea, no vomiting and no d iarrhea/loose stools Genitourinary: no problem reported Physical Exam Constitutional: + frail appearing; not in distress Eyes: PERRL, conjunctivae normal, anicteric sclerae ENMT: external ear and nose normal, oropharynx normal Neck: trachea midline, no thyromegaly Respiratory: normal respiratory effort, lungs clear to auscultation Cardiovascular: RRR, no murmur, no edema Extremities: + AV fistula (LUE BC AVG + bruit) Gastrointestinal (Abdomen): normal bowel sounds, soft, nontender, no h epatosplenomegaly Musculoskeletal: Extremities: no cyanosis Skin: no rashes, warm and dry Neurologic: Speech / Cognition: normal speech and normal cognition Psychiatric: Orientation: oriented x 3 Affect: + flat affect Results & Data Vital Signs (Past 12 Hours) Vital Signs Temp Pulse Pulse Resp BP Pulse Ox O2 Del Method 04/11/23 08:32 37.3 C 96 H 18 124/60 97 Room Air 04/11/23 02:57 36.9 C 93 H 18 117/59 L 95 Room Air 04/10/23 22:55 36.9 C 85 17 124/63 97 Room Air 04/10/23 22:30 Nasal Cannula 04/10/23 22:00 86 O2 Flow Rate 04/11/23 08:32 04/11/23 02:57 04/10/23 22:55 04/10/23 22:30 2 04/10/23 22:00 Laboratory Results Laboratory Results - last 24 hr 04/11/23 06:03 WBC 4.03 L RBC 2.90 L Hgb 8.4 L Hct 25.7 L MCV 88.6 MCH 29.0 MCHC 32.7 RDW Std Deviation 56.5 H RDW Coeff of Berto 17.9 H Plt Count 45 L PT 13.7 H INR 1.3 H Sodium 135 L Potassium 4.2 Chloride 106 Carbon Dioxide 20 L Anion Gap 9 BUN 47 H Creatinine 5.59 H* D Est Cr Clr Drug Dosing 9.2 Est GFR ( Amer) 10.3 Est GFR (Non-Af Amer) 8.9 BUN/Creatinine Ratio 8.4 L Glucose 104 H Calcium 7.6 L PG Care Time/CCT Total # of Minutes Spent Total Time Spent with Patient: Total time spent is greater than 50% in coordination of care (as documented) at patient's floor/unit and/or counseling patient: Coding Level of Care Code 23514 SUB INP/OBS CARE 3/50MIN Diagnoses ESRD (end stage renal disease) N18.6 Acute respiratory failure with hypoxia J96.01 H/O stem cell transplant Z94.84 Anemia D64.9 Physical deconditioning R53.81
--- NOTE | 2023-04-11 13:15 | Hospitalist Progress Note ---
Date of Service April 11, 2023 Assessment & Plan (1) Pneumonia: Plan: suspect aspiration, video swallow eval showed silent aspiration Was initially on IV cefepime but discontinued due to thrombocytopenia Completed a course of IV antibiotics Cultures have been negative. (2) Thrombocytopenia: Plan: Thrombocytopenia keeps improving, 45,000 today Hematology on consult Blood smear shows anisocytosis, ovalocytes and reduced number of lymphocytes and a single pml Leukocyte which is clearly insufficient to suggest myelodysplasia. Transfuse if platelet drops below 10,000 or if there is bleeding. (3) Pancytopenia: Plan: Patient has a history of multiple myeloma Bone marrow biopsy has been done, result pending Blood smear shows anisocytosis, ovalocytes and reduced number of lymphocytes and a single pml Leukocyte which is clearly insufficient to suggest myelodysplasia. Results of bone marrow biopsy is pending However pancytopenia has improved (4) Acute respiratory failure with hypoxia: Plan: Now resolved Patient currently on room air (5) Fever: Plan: Patient has been afebrile for the past 72 Biofire PCR negative blood culture Coag negative staph , probably contamination urine culture is pending (6) Elevated INR: Plan: On for [facility] metallic AVR and a. fib with usual goal per cardiology notes 2-3. No active bleeding suspected but given concurrent platelets 35 in addition to INR > 8 this warrants treatment Vitamin K 2.5mg IV, repeat INR later today to check coming down, restart warfarin once < 3.5 Usual warfarin dosing 1mg x2 days, 0.5mg all other days but recently increased to 1mg x3 days, 0.5mg all other days INR 1.2 , platelets 37,000 today, continue to hold Coumadin in view of thrombocytopenia hem/onc consulted Probably resume Coumadin when platelets returned to normal (7) Hemodialysis patient: Plan: Continue hemodialysis (8) Paroxysmal atrial fibrillation: Plan: Currently in NSR Anticoagulation on hold as INR supratherapeutic Continue metoprolol tartrate 50mg PO BID hold Coumadin due to low PLT (9) H/O stem cell transplant: Plan: hem/onc consulted (10) Indwelling Chandler catheter present: Plan: Replaced in the ER, UA pending Restart tamsulosin when stable (11) Bacteremia: Plan: staph bacteremia, coag negative , probably contamination perm-a cath in place repeat blood cultures showed no growth Completed a course of antibiotics ECHO no obvious vegetation (12) Severe sepsis: Plan: Now resolved blood culture is positive for coag negative staph which probably is a con taminant Completed course of antibiotics (13) Cardiomyopathy: Plan: EF 35 -40 % probably has CHF acute systolic continue HD cardiology follows (14) Physical deconditioning: Plan: Patient is severely physically deconditioned Physical therapy recommends acute rehab Patient now agreeable to go to outpatient rehab (15) Constipated: Plan: Resolved, Plan VTE prophylaxis - supratherapeutic INR, warfarin on hold Diet - dialysis renal Disposition -continue hospitalization Hopefully patient will agree to go to rehab Admission and Anticipated Discharge Date Admission Date: April 01, 2023 Subjective Patient seen and examined, lying quietly in bed says his appetite is a little bit more improved and now agreeable to go to outpatient rehab Review of Systems Review of Systems: All systems reviewed are negative, apart from the ones contained in the history. Physical Exam Physical Exam: The patient is awake, alert and oriented 3, frail and chronically ill looking HEENT--PERRL, EOMI, mucous membranes and oropharynx mildly dry Neck--supple. No JVD. No bruits. Thyroid normal, trachea midline, no adenopathy. Heart--normal S1 and S2. No murmurs, rubs or gallops. Lungs--clear bilaterally, no respiratory distress, no accessory muscle use. Abdomen--normal bowel sounds and soft. Extremities--no cyanosis or clubbing. No edema. Dermatologic--normal skin turgor, normal color, no abnormal lymph nodes, no rash. Neurologic--cranial nerves II through XII grossly intact. Rheumatologic--normal range of motion. Psychiatric--normal affect. Results & Data Results & Data Vital Signs (Past 12 Hours) Vital Signs Temp Pulse Resp BP Pulse Ox O2 Del Method 04/11/23 11:57 98.4 F 96 H 16 133/58 L 97 Room Air 04/11/23 08:32 99.1 F 96 H 18 124/60 97 Room Air 04/11/23 02:57 98.4 F 93 H 18 117/59 L 95 Room Air PG Care Time/CCT Total # of Minutes Spent Total Time Spent with Patient: Total time spent is greater than 50% in coordination of care (as documented) at patient's floor/unit and/or counseling patient: Coding Level of Care Code 31153 SUB INP/OBS CARE 235MIN Diagnoses Pneumonia J18.9 Pneumonia type: aspiration pneumonia Thrombocytopenia D69.6 Pancytopenia D61.818 Acute respiratory failure with hypoxia J96.01 Fever R50.9 Elevated INR R79.1 Hemodialysis patient Z99.2 Paroxysmal atrial fibrillation I48.0 H/O stem cell transplant Z94.84 Indwelling Chandler catheter present Z97.8 Bacteremia R78.81 Severe sepsis A41.9; R65.20 Cardiomyopathy I42.9 Physical deconditioning R53.81 Constipated K59.00 Time Spent (min) 35 (1) Pneumonia Pneumonia type: aspiration pneumonia
[2023-04-12 06:44] LABS: Hemoglobin 7.6 g/dl (14.0-18.0); Mean Corpuscular Hemoglobin 28.9 pg (25.0-34.0); Mean Corpuscular Volume 87.5 fL (80.0-100.0); Platelet Count 51 K/uL (130-400); RDW Coefficient of Variation 18.2 % (11.5-14.5); RDW Standard Deviation 56.4 fL (36.4-46.3); Red Blood Count 2.63 M/uL (4.70-6.10); White Blood Count 3.62 K/ul (4.8-10.8)
[2023-04-12 06:50] LABS: BUN Creatinine Ratio 9.5 (10-20); Calcium 7.4 mg/dl (8.6-10.3); Creatinine Clr Calc Pharmacy 7.7 ml/min; Est GFR (African American) 8.4 ml/min; Est GFR (Non-African American) 7.3 ml/min; Potassium 4.1 mmol/L (3.5-5.1)
[2023-04-12] MEDS ORDERED: SODIUM CHLORIDE 0.9% 1,000 ML IV PRN (07:00)
--- NOTE | 2023-04-12 08:51 | Nephrology Progress Note ---
Date of Service April 12, 2023 Assessment & Plan (1) ESRD (end stage renal disease): Plan: * Outpatient Rx is TTS 3.5 hrs, 400/800, 3K, 137Na. EDW 64.5 kg * Renal diet. Sevelamer [facility] * Will provide HD today. Patient declines the use of his AVG. Will use IJ TCC as vascular access. Orders have been entered into EMR and HD RN notified (2) Acute respiratory failure with hypoxia: Plan: * Attributed to aspiration pneumonia. 04/05/23 video swallowing study revealed silent aspiration w/ thin barium. No dietary change recommended at this time * Now breathing comfortably on RA (3) H/O stem cell transplant: Plan: * Multiple myeloma s/p bone marrow transplant 2013 * Now pancytopenia s/p CT guided bone marrow biopsy 04/08/23 - results pending * Thrombocytopenia is mildly improved this am (4) Anemia: Plan: * High ferritin. Hold IV iron * Epogen 14617 units with HD 04/06 * Peripheral smear negative for schistocytes/TMA (5) Physical deconditioning: Plan: * 04/11/23 PT evaluation - moderate assistance to sit up, ambulated short distance w/ rolling walker, fatigues easily Admission and Anticipated Discharge Date Admission Date: April 01, 2023 Subjective Mr. Londono was evaluated in his hospital room this morning. He denied fever, productive cough, or abdominal pain. He did participate in PT yesterday. He was a moderate assist to sit up but was able to ambulate a short distance w/ the use of a walker Review of Systems Constitutional: no fever Eyes: no worsening vision Ear, Nose, Mouth, Throat: no problem reported Respiratory: no cough and no dyspnea Cardiovascular: no chest pain Gastrointestinal: no abdominal pain, no nausea, no vomiting and no diarrhea/loose stools Genitourinary: no problem reported Physical Exam Constitutional: + frail appearing; not in distress Eyes: PERRL, conjunctivae normal, anicteric sclerae ENMT: external ear and nose normal, oropharynx normal Neck: trachea midline, no thyromegaly Respiratory: normal respiratory effort, lungs clear to auscultation Cardiovascular: RRR, no murmur, no edema Extremities: + AV fistula (LUE BC AVG + bruit) Gastrointestinal (Abdomen): normal bowel sounds, soft, nontender, no hepatosplenomegaly Musculoskeletal: Extremities: no cyanosis Skin: no rashes, warm and dry Neurologic: Speech / Cognition: normal speech and normal cognition Psychiatric: Orientation: oriented x 3 Affect: + flat affect Results & Data Vital Signs (Past 12 Hours) Vital Signs Temp Pulse Pulse Resp BP Pulse Ox O2 Del Method 04/12/23 08:10 36.9 C 93 H 18 116/81 96 Room Air 04/12/23 03:49 36.6 C 90 19 127/73 96 Room Air 04/11/23 23:45 36.8 C 92 H 17 120/69 95 Room Air 04/11/23 22:16 87 O2 Flow Rate 04/12/23 08:10 96 04/12/23 03:49 04/11/23 23:45 04/11/23 22:16 Laboratory Results Laboratory Results - last 24 hr 04/08/23 04/12/23 11:30 06:14 WBC 3.62 L RBC 2.63 L Hgb 7.6 L Hct 23.0 L MCV 87.5 MCH 28.9 MCHC 33.0 RDW Std Deviation 56.4 H RDW Coeff of Berto 18.2 H Plt Count 51 L Sodium 135 L Potassium 4.1 Chloride 107 Carbon Dioxide 18 L Anion Gap 10 BUN 63 H Creatinine 6.61 H* D Est Cr Clr Drug Dosing 7.7 Est GFR ( Amer) 8.4 Est GFR (Non-Af Amer) 7.3 BUN/Creatinine Ratio 9.5 L Glucose 113 H Calcium 7.4 L Iron 29 L TIBC 128 L Unsaturated IBC 99 L Transferrin % Sat 23 Ferritin 2300.0 H Plasma Cell w/o IGH/MAF Pending BM Chromosome Analysis Pending Flow Cytometry Comment Pending Misc Genetic Test Pending Diagnostic Findings 04/08/23 Bone marrow biopsy - pending PG Care Time/CCT Total # of Minutes Spent Total Time Spent with Patient: Total time spent is greater than 50% in coordination of care (as documented) at patient's floor/unit and/or counseling patient: Coding Level of Care Code 10223 SUB INP/OBS CARE 3/50MIN Diagnoses ESRD (end stage renal disease) N18.6 Acute respiratory failure with hypoxia J96.01 H/O stem cell transplant Z94.84 Anemia D64.9 Physical deconditioning R53.81
[2023-04-12] MEDS: EPOETIN ALFA 10,000 UNITS/ML VIAL IV ONE (12:17)
--- NOTE | 2023-04-12 12:49 | Hospitalist Progress Note ---
Date of Service April 12, 2023 Assessment & Plan (1) Pneumonia: Plan: suspect aspiration, video swallow eval showed silent aspiration Was initially on IV cefepime but discontinued due to thrombocytopenia Completed a course of IV antibiotics Cultures have been negative. Saturating well on room air (2) Thrombocytopenia: Plan: Thrombocytopenia keeps improving, 51,000 today Hematology on consult Blood smear shows anisocytosis, ovalocytes and reduced number of lymphocytes and a single pml Leukocyte which is clearly insufficient to suggest myelodysplasia. Transfuse if platelet drops below 10,000 or if there is bleeding. (3) Pancytopenia: Plan: Patient has a history of multiple myeloma Bone marrow biopsy has been done, result pending Blood smear shows anisocytosis, ovalocytes and reduced number of lymphocytes and a single pml Leukocyte which is clearly insufficient to suggest myelodysplasia. Results of bone marrow biopsy is pending However pancytopenia has improved (4) Acute respiratory failure with hypoxia: Plan: Now resolved Patient currently on room air (5) Fever: Plan: Patient has been afebrile for the past 84 hours Biofire PCR negative blood culture Coag negative staph , probably contamination urine culture is pending (6) Elevated INR: Plan: On for [facility] metallic AVR and a. fib with usual goal per cardiology notes 2-3. No active bleeding suspected but given concurrent platelets 35 in addition to INR > 8 this warrants treatment Vitamin K 2.5mg IV, repeat INR later today to check coming down, restart warfarin once < 3.5 Usual warfarin dosing 1mg x2 days, 0.5mg all other days but recently increased to 1mg x3 days, 0.5mg all other days Platelets 51,000 today, will resume Coumadin (7) Hemodialysis patient: Plan: Continue hemodialysis (8) Paroxysmal atrial fibrillation: Plan: Currently in NSR Anticoagulation on hold as INR supratherapeutic Continue metoprolol tartrate 50mg PO BID Coumadin initially on hold, has been resumed (9) H/O stem cell transplant: Plan: hem/onc consulted (10) Indwelling Chandler catheter present: Plan: Replaced in the ER, UA pending Restart tamsulosin when stable (11) Bacteremia: Plan: staph bacteremia, coag negative , probably contamination perm-a cath in place repeat blood cultures showed no growth Completed a course of antibiotics ECHO no obvious vegetation (12) Severe sepsis: Plan: Now resolved Completed course of antibiotics (13) Cardiomyopathy: Plan: EF 35 -40 % probably has CHF acute systolic continue HD cardiology follows (14) Physical deconditioning: Plan: Patient is severely physically deconditioned Physical therapy recommends acute rehab Patient now agreeable to go to outpatient rehab after refusing initially (15) Constipated: Plan: Resolved, Plan VTE prophylaxis -Coumadin Diet - dialysis renal Disposition -acute rehab was denied by insurance, P2P is scheduled around 1 PM today, although I called and said he has been approved for SNF, but SNF beds are tight these days. Admission and Anticipated Discharge Date Admission Date: April 01, 2023 Subjective Patient seen and examined, lying quietly in bed, tolerating diet, participating in physical therapy Review of Systems Review of Systems: All systems reviewed are negative, apart from the ones contained in the history. Physical Exam Physical Exam: The patient is awake, alert and oriented 3, frail and chronically ill looking HEENT--PERRL, EOMI, mucous membranes and oropharynx mildly dry Neck--supple. No JVD. No bruits. Thyroid normal, trachea midline, no adenopathy. Heart--normal S1 and S2. No murmurs, rubs or gallops. Lungs--clear bilaterally, no respiratory distress, no accessory muscle use. Abdomen--normal bowel sounds and soft. Extremities--no cyanosis or clubbing. No edema. Dermatologic--normal skin turgor, normal color, no abnormal lymph nodes, no rash. Neurologic--cranial nerves II through XII grossly intact. Rheumatologic--normal range of motion. Psychiatric--normal affect. Results & Data Results & Data Vital Signs (Past 12 Hours) Vital Signs Temp Pulse Pulse Resp BP BP Pulse Ox 04/12/23 12:00 98 H 100/59 L 04/12/23 11:30 93 H 115/59 L 04/12/23 11:00 90 114/56 L 04/12/23 10:30 91 H 126/58 L 04/12/23 10:00 87 122/61 04/12/23 09:30 91 H 116/60 04/12/23 09:11 88 122/62 04/12/23 09:08 98.1 F 89 04/12/23 08:10 98.4 F 93 H 18 116/81 96 04/12/23 03:49 97.9 F 90 19 127/73 96 O2 Del Method O2 Flow Rate 04/12/23 12:00 04/12/23 11:30 04/12/23 11:00 04/12/23 10:30 04/12/23 10:00 04/12/23 09:30 04/12/23 09:11 04/12/23 09:08 04/12/23 08:10 Room Air 96 04/12/23 03:49 Room Air PG Care Time/CCT Total # of Minutes Spent Total Time Spent with Patient: Total time spent is greater than 50% in coordination of care (as documented) at patient's floor/unit and/or counseling patient: Coding Level of Care Code 20259 SUB INP/OBS CARE 2/35MIN Diagnoses Pneumonia J18.9 Pneumonia type: aspiration pneumonia Thrombocytopenia D69.6 Pancytopenia D61.818 Acute respiratory failure with hypoxia J96.01 Fever R50.9 Elevated INR R79.1 Hemodialysis patient Z99.2 Paroxysmal atrial fibrillation I48.0 H/O stem cell transplant Z94.84 Indwelling Chandler catheter present Z97.8 Bacteremia R78.81 Severe sepsis A41.9; R65.20 Cardiomyopathy I42.9 Physical deconditioning R53.81 Constipated K59.00 Time Spent (min) 35 (1) Pneumonia Pneumonia type: aspiration pneumonia
[2023-04-12] MEDS: WARFARIN SOD 2.5 MG TAB PO SCH (17:32)
[2023-04-13 06:47] LABS: Hematocrit (blood only) 23.4 % (42.0-52.0); Hemoglobin 7.7 g/dl (14.0-18.0); Mean Corpuscular Hemoglobin 29.2 pg (25.0-34.0); Mean Corpuscular Hgb Conc 32.9 g/dL (32.0-36.0); Mean Corpuscular Volume 88.6 fL (80.0-100.0); Platelet Count 62 K/uL (130-400); RDW Coefficient of Variation 18.6 % (11.5-14.5); RDW Standard Deviation 57.4 fL (36.4-46.3); Red Blood Count 2.64 M/uL (4.70-6.10); White Blood Count 2.86 K/ul (4.8-10.8)
[2023-04-13 07:09] LABS: BUN Creatinine Ratio 8.6 (10-20); Calcium 7.6 mg/dl (8.6-10.3); Creatinine Clr Calc Pharmacy 12.2 ml/min; Est GFR (African American) 14.7 ml/min; Est GFR (Non-African American) 12.6 ml/min; Potassium 3.8 mmol/L (3.5-5.1)
--- NOTE | 2023-04-13 08:51 | Nephrology Progress Note ---
Date of Service April 13, 2023 Assessment & Plan (1) ESRD (end stage renal disease): Plan: * Outpatient Rx is TTS 3.5 hrs, 400/800, 3K, 137Na. EDW 64.5 kg * Renal diet. Sevelamer Q[facility] * Volume status and electrolyte balance are acceptable. No acute indication for HD today (2) Acute respiratory failure with hypoxia: Plan: * Attributed to aspiration pneumonia. 04/05/23 video swallowing study revealed silent aspiration w/ thin barium. No dietary change recommended at this time * Now breathing comfortably on RA (3) H/O stem cell transplant: Plan: * Multiple myeloma s/p bone marrow transplant 2013 * Now pancytopenia s/p CT guided bone marrow biopsy 04/08/23 - results pending * Thrombocytopenia continues to gradually improve (4) Anemia: Plan: * High ferritin. Hold IV iron * Epogen 86212 units with HD 04/06 * Peripheral smear negative for schistocytes/TMA (5) Physical deconditioning: Plan: * 04/11/23 PT evaluation - moderate assistance to sit up, ambulated short distance w/ rolling walker, fatigues easily * Possible transfer to [facility] following hospitalization Admission and Anticipated Discharge Date Admission Date: April 01, 2023 Subjective Mr. Londono was evaluated in his hospital room this morning. He denied fever, productive cough, or abdominal pain. Mr. Londono was dialyzed yesterday for 2 L UF. There were no complications. He voiced no medical concerns Review of Systems Constitutional: no fever Eyes: no worsening vision Ear, Nose, Mouth, Throat: no problem reported Respiratory: no cough and no dyspnea Cardiovascular: no chest pain Gastrointestinal: no abdominal pain, no nausea, no vomiting and no diarrhea/loose stools Genitourinary: no problem reported Physical Exam Constitutional: + frail appearing; not in distress Eyes: PERRL, conjunctivae normal, anicteric sclerae ENMT: external ear and nose normal, oropharynx normal Neck: trachea midline, no thyromegaly (R IJ TCC w/ clean, dry dressing in place) Respiratory: normal respiratory effort, lungs clear to auscultation Cardiovascular: RRR, no murmur, no edema Extremities: + AV fistula (LUE BC AVG + bruit) Gastrointestinal (Abdomen): normal bowel sounds, soft, nontender, no hepatosplenomegaly Musculoskeletal: Extremities: no cyanosis Skin: no rashes, warm and dry Neurologic: Speech / Cognition: normal speech and normal cognition Psychiatric: Orientation: oriented x 3 Affect: + flat affect Results & Data Vital Signs (Past 12 Hours) Vital Signs Temp Pulse Pulse Resp BP Pulse Ox O2 Del Method 04/13/23 08:16 36.7 C 89 19 124/56 L 97 Room Air 04/13/23 03:54 36.8 C 89 21 126/55 L 96 Room Air 04/12/23 23:59 36.9 C 90 19 125/60 96 Room Air 04/12/23 21:56 93 H Laboratory Results Laboratory Results - last 24 hr 04/13/23 05:54 WBC 2.86 L RBC 2.64 L Hgb 7.7 L Hct 23.4 L MCV 88.6 MCH 29.2 MCHC 32.9 RDW Std Deviation 57.4 H RDW Coeff of Berto 18.6 H Plt Count 62 L Sodium 137 Potassium 3.8 Chloride 108 H Carbon Dioxide 21 Anion Gap 8 BUN 36 H D Creatinine 4.18 H D Est Cr Clr Drug Dosing 12.2 Est GFR ( Amer) 14.7 Est GFR (Non-Af Amer) 12.6 BUN/Creatinine Ratio 8.6 L Glucose 105 H Calcium 7.6 L Diagnostic Findings 04/08/23 Bone marrow biopsy - pending PG Care Time/CCT Total # of Minutes Spent Total Time Spent with Patient: Total time spent is greater than 50% in coordination of care (as documented) at patient's floor/unit and/or counseling patient: Coding Level of Care Code 19188 SUB INP/OBS CARE 3/50MIN Diagnoses ESRD (end stage renal disease) N18.6 Acute respiratory failure with hypoxia J96.01 H/O stem cell transplant Z94.84 Anemia D64.9 Physical deconditioning R53.81
[2023-04-13 10:10] LABS: INR 1.2 (0.9-1.1)
[2023-04-13 10:52] LABS: HBSAG NON-REACTIVE (NON-REACTIVE)
--- NOTE | 2023-04-13 13:27 | Hospitalist Progress Note ---
Date of Service April 13, 2023 Assessment & Plan (1) Pneumonia: Plan: Due to suspected aspiration. Video swallow eval showed silent aspiration. He has completed his antibiotic course. He is now on room air (2) Acute respiratory failure with hypoxia: Plan: Present on admission. Resolved. Now on room air (3) Thrombocytopenia: Plan: Platelet count improved to 62,000. Serial labs. No signs of hemorrhage . Hematology/oncology consultation appreciated (4) Pancytopenia: Plan: Due to multiple myeloma. He is status post stem cell transplant. Hematology consultation appreciated. Bone marrow biopsy completed April 08. Pathology report remains pending. Serial labs (5) Elevated INR: Plan: On Coumadin for [facility] Kenneth metallic AVR and a. fib . Coumadin was reversed with vitamin K due to thrombocytopenia but has been restarted. Serial labs (6) Hemodialysis patient: Plan: End-stage renal disease. Continue hemodialysis (7) Paroxysmal atrial fibrillation: Plan: Currently in NSR. Telemetry. Continue current medical management. (8) Indwelling Chandler catheter present: Plan: Chronic. Replaced in the ER (9) Bacteremia: Plan: staph bacteremia, coag negative. Appears to be contamination . Repeat blood cultures showed no growth . ECHO no obvious vegetation (10) Severe sepsis: Plan: Present on admission. Now resolved (11) Cardiomyopathy: Plan: Known EF 35 -40 %. Continue current medical management. Plan IPR has been denied. Case management pursuing SNF placement. Admission and Anticipated Discharge Date Admission Date: April 01, 2023 Subjective Alert and oriented. No distress. Platelet count improved to 62,000. INR 1.2. 97% on room air. IPR placement has been denied. SNF placement is pending. Nephrology entry noted Review of Systems 2 Review of Systems: Constitutional-no fever or chills ENT-no blurred vision, no double vision, no epistaxis, no sore throat Respiratory-no cough, no wheezing, no shortness of breath Cardiac-no palpitations, no chest pain, no syncope GI-no nausea, vomiting, diarrhea, melena, hematochezia -no urinary retention, no urinary incontinence, no dysuria, no hematuria Musculoskeletal-no joint pain, no muscle tenderness Skin-no bruising, no rashes, no pruritus Neuro-no isolated weakness, no paresthesia, no weakness Psych-no depression, no anxiety Physical Exam 2 Physical Exam: General-alert and oriented x3, no fevers, no chills HEENT-head atraumatic and normocephalic, pupils equal and reactive to light, extraocular muscles intact Neck-no lymphadenopathy or thyromegaly, trachea midline Chest-clear to auscultation. No rales, wheezing or rhonchi Cardiac-regular rate and rhythm, normal S1 and S2 Abdomen-normal bowel sounds, nontender, no hepatosplenomegaly GUFoley catheter in place without hematuria Extremities-no cyanosis, clubbing, or edema Neuro-cranial nerves II through XII intact, motor and sensory function within normal limits, strength symmetrical with generalized weakness, no focal deficits Psych-normal affect, normal mood Results & Data Results & Data Vital Signs (Past 12 Hours) Vital Signs Temp Pulse Resp BP Pulse Ox O2 Del Method 04/13/23 12:13 86 18 127/75 98 Room Air 04/13/23 08:16 36.7 C 89 19 124/56 L 97 Room Air 04/13/23 03:54 36.8 C 89 21 126/55 L 96 Room Air Laboratory Results 04/13/23 05:54 04/13/23 05:54 PG Care Time/CCT Total # of Minutes Spent Total Time Spent with Patient: Total time spent is greater than 50% in coordination of care (as documented) at patient's floor/unit and/or counseling patient: Coding Level of Care Code 44267 SUB INP/OBS CARE 3/50MIN Diagnoses Pneumonia J18.9 Pneumonia type: aspiration pneumonia Acute respiratory failure with hypoxia J96.01 Thrombocytopenia D69.6 Pancytopenia D61.818 Elevated INR R79.1 Hemodialysis patient Z99.2 Paroxysmal atrial fibrillation I48.0 Indwelling Chandler catheter present Z97.8 Bacteremia R78.81 Severe sepsis A41.9; R65.20 Cardiomyopathy I42.9 (1) Pneumonia Pneumonia type: aspiration pneumonia
[2023-04-13] MEDS: WARFARIN SOD 5 MG TAB PO SCH (17:04)
[2023-04-14 06:32] LABS: Basophils # (auto) 0.02 K/uL (0.00-0.20); Basophils % (auto) 0.6 %; Eosinophils # (auto) 0.05 K/uL (0.00-0.50); Eosinophils % (auto) 1.5 %; Hematocrit (blood only) 23.6 % (42.0-52.0); Immature Granulocytes # (auto) 0.01 K/uL (0.01-0.20); Immature Granulocytes % (auto) 0.3 %; Lymphocytes # (auto) 0.77 K/uL (1.20-3.40); Lymphocytes % (auto) 23.8 %; Mean Corpuscular Hemoglobin 29.5 pg (25.0-34.0); Mean Corpuscular Hgb Conc 33.9 g/dL (32.0-36.0); Mean Corpuscular Volume 87.1 fL (80.0-100.0); Mean Platelet Volume 11.4 fL (9.4-12.4); Monocytes # (auto) 0.38 K/uL (0.11-0.59); Monocytes % (auto) 11.7 %; Neutrophils # (auto) 2.01 K/uL (1.40-6.50); Neutrophils % (auto) 62.1 %; Platelet Count 74 K/uL (130-400); RDW Coefficient of Variation 18.5 % (11.5-14.5); RDW Standard Deviation 56.5 fL (36.4-46.3); Red Blood Count 2.71 M/uL (4.70-6.10); White Blood Count 3.24 K/ul (4.8-10.8)
[2023-04-14 06:47] LABS: Calcium 7.7 mg/dl (8.6-10.3); Creatinine Clr Calc Pharmacy 9.2 ml/min; Est GFR (African American) 10.4 ml/min; Potassium 3.7 mmol/L (3.5-5.1)
[2023-04-14 06:58] LABS: INR 1.3 (0.9-1.1); Prothrombin Time 13.9 Seconds (9.0-12.0)
[2023-04-14] MEDS ORDERED: SODIUM CHLORIDE 0.9% 1,000 ML IV PRN (07:00)
--- NOTE | 2023-04-14 08:35 | Nephrology Progress Note ---
Date of Service April 14, 2023 Assessment & Plan (1) ESRD (end stage renal disease): Plan: * Outpatient Rx is TTS 3.5 hrs, 400/800, 3K, 137Na. EDW 64.5 kg * Will provide HD today. Orders have been entered into EMR and HD RN notified * Continue renal diet,sevelamer [facility] (2) Acute respiratory failure with hypoxia: Plan: * Attributed to aspiration pneumonia. 04/05/23 video swallowing study revealed silent aspiration w/ thin barium. No dietary change recommended at this time * Now breathing comfortably on RA (3) H/O stem cell transplant: Plan: * Multiple myeloma s/p bone marrow transplant 2013 * Pancytopenia is gradually improving * s/p CT guided bone marrow biopsy 04/08/23 - results pending (4) Anemia: Plan: * High ferritin. Hold IV iron * Epogen 19759 units with HD 04/06 * Peripheral smear negative for schistocytes/TMA (5) Physical deconditioning: Plan: * 04/11/23 PT evaluation - moderate assistance to sit up, ambulated short distance w/ rolling walker, fatigues easily * Possible transfer to [facility] following hospitalization Admission and Anticipated Discharge Date Admission Date: April 01, 2023 Subjective Mr. Londono was evaluated in his hospital room this morning. He denied fever, productive cough, or abdominal pain. He voiced no medical concerns. He is awaiting HD and the results of his bone marrow biopsy Review of Systems Constitutional: no fever Eyes: no worsening vision Ear, Nose, Mouth, Throat: no problem reported Respiratory: no cough and no dyspnea Cardiovascular: no chest pain Gastrointestinal: no abdominal pain, no nausea, no vomiting and no diarrhea/loose stools Genitourinary: no problem reported Physical Exam Constitutional: + frail appearing; not in distress Eyes: PERRL, conjunctivae normal, anicteric sclerae ENMT: external ear and nose normal, oropharynx normal Neck: trachea midline, no thyromegaly (R IJ TCC w/ clean, dry dressing in place) Respiratory: normal respiratory effort, lungs clear to auscultation Cardiovascular: RRR, no murmur, no edema Extremities: + AV fistula (LUE BC AVG + bruit) Gastrointestinal (Abdomen): normal bowel sounds, soft, nontender, no hepatosplenomegaly Musculoskeletal: Extremities: no cyanosis Skin: no rashes, warm and dry Neurologic: Speech / Cognition: normal speech and normal cognition Psychiatric: Orientation: oriented x 3 Affect: + flat affect Results & Data Vital Signs (Past 12 Hours) Vital Signs Temp Pulse Pulse Resp BP Pulse Ox O2 Del Method 04/14/23 08:00 36.8 C 83 18 122/63 97 Room Air 04/14/23 03:07 37.0 C 74 20 140/72 95 Room Air 04/13/23 22:49 36.6 C 78 18 146/63 H 95 Room Air 04/13/23 22:41 85 Laboratory Results Laboratory Results - last 24 hr 04/08/23 04/09/23 04/13/23 11:30 08:44 09:13 WBC RBC Hgb Hct MCV MCH MCHC RDW Std Deviation RDW Coeff of Berto Plt Count MPV Immature Gran % (Auto) Neut % (Auto) Lymph % (Auto) Butler % (Auto) Eos % (Auto) Baso % (Auto) Neut # (Auto) Lymph # (Auto) Butler # (Auto) Eos # (Auto) Baso # (Auto) Immature Gran # (Auto) PT 13.0 H INR 1.2 H Sodium Potassium Chloride Carbon Dioxide Anion Gap BUN Creatinine Est Cr Clr Drug Dosing Est GFR ( Amer) Est GFR (Non-Af Amer) BUN/Creatinine Ratio Glucose Calcium Hep Bs Antigen NON-REACTIVE Hep Bs Ag Confirmation TNP Flow Cytometry Comment See Comment Misc Genetic Test See Scanned Report 04/14/23 06:04 WBC 3.24 L RBC 2.71 L Hgb 8.0 L Hct 23.6 L MCV 87.1 MCH 29.5 MCHC 33.9 RDW Std Deviation 56.5 H RDW Coeff of Berto 18.5 H Plt Count 74 L MPV 11.4 Immature Gran % (Auto) 0.3 Neut % (Auto) 62.1 Lymph % (Auto) 23.8 Butler % (Auto) 11.7 Eos % (Auto) 1.5 Baso % (Auto) 0.6 Neut # (Auto) 2.01 Lymph # (Auto) 0.77 L Butler # (Auto) 0.38 Eos # (Auto) 0.05 Baso # (Auto) 0.02 Immature Gran # (Auto) 0.01 PT 13.9 H INR 1.3 H Sodium 135 L Potassium 3.7 Chloride 107 Carbon Dioxide 20 L Anion Gap 8 BUN 50 H Creatinine 5.56 H* D Est Cr Clr Drug Dosing 9.2 Est GFR ( Amer) 10.4 Est GFR (Non-Af Amer) 9.0 BUN/Creatinine Ratio 9.0 L Glucose 102 H Calcium 7.7 L Hep Bs Antigen Hep Bs Ag Confirmation Flow Cytometry Comment Misc Genetic Test Diagnostic Findings 04/08/23 Bone marrow biopsy - pending PG Care Time/CCT Total # of Minutes Spent Total Time Spent with Patient: Total time spent is greater than 50% in coordination of care (as documented) at patient's floor/unit and/or counseling patient: Coding Level of Care Code 58050 SUB INP/OBS CARE 3/50MIN Diagnoses ESRD (end stage renal disease) N18.6 Acute respiratory failure with hypoxia J96.01 H/O stem cell transplant Z94.84 Anemia D64.9 Physical deconditioning R53.81
[2023-04-14] MEDS: ENOXAPARIN INJ 60 MG/0.6 ML SYR SQ SCH (10:28)
[2023-04-14] MEDS: WARFARIN SOD 7.5 MG TAB PO ONE (10:29)
[2023-04-14] MEDS ORDERED: Heparin IV Adult Wt-Based Standard *NO* INITIAL Bolus Protocol IV STA (11:53)
--- NOTE | 2023-04-14 12:47 | Hospitalist Progress Note ---
Date of Service April 14, 2023 Assessment & Plan (1) Pneumonia: Plan: Due to suspected aspiration. Video swallow eval showed silent aspiration. He has completed his antibiotic course. He is now on room air (2) Acute respiratory failure with hypoxia: Plan: Present on admission. Resolved. Now on room air (3) Thrombocytopenia: Plan: Platelet count improved to 74,000. Serial labs. No signs of hemorrhage . Hematology/oncology consultation appreciated (4) Pancytopenia: Plan: Due to multiple myeloma. He is status post stem cell transplant. Hematology consultation appreciated. Bone marrow biopsy completed April 08. Pathology report remains pending. Continue daily labs (5) Elevated INR: Plan: On Coumadin for [facility] metallic AVR and a. fib . Coumadin was reversed with vitamin K due to thrombocytopenia but has been restarted. The INR remains low. Heparin drip has been started to bridge him until the INR is more acceptable. Serial labs (6) Hemodialysis patient: Plan: End-stage renal disease. Continue hemodialysis (7) Paroxysmal atrial fibrillation: Plan: Currently in NSR. Telemetry. Continue current medical management. (8) Indwelling Chandler catheter present: Plan: Chronic. Replaced in the ER (9) Bacteremia: Plan: staph bacteremia, coag negative. Appears to be contamination . Repeat blood cultures showed no growth . ECHO shows no obvious vegetation (10) Severe sepsis: Plan: Present on admission. Now resolved (11) Cardiomyopathy: Plan: Known EF 35 -40 %. Continue current medical management. Plan IPR has been denied. Case management pursuing SNF placement. Admission and Anticipated Discharge Date Admission Date: April 01, 2023 Subjective Alert and oriented. No distress. INR is low and since he has a mechanical valve heparin drip has been started until Coumadin reaches a more acceptable level. Mirtazapine has been ordered at bedtime since this helped him in the past and was well-tolerated. Platelet count continues to improve to 74,000. INR is only 1.3 today, April 14. Pathology report from the bone marrow biopsy completed April 08 remains pending. Eventual discharge to SNF facility is pending Review of Systems 2 Review of Systems: Constitutional-no fever or chills ENT-no blurred vision, no double vision, no epistaxis, no sore throat Respiratory-no cough, no wheezing, no shortness of breath Cardiac-no palpitations, no chest pain, no syncope GI-no nausea, vomiting, diarrhea, melena, hematochezia -no urinary retention, no urinary incontinence, no dysuria, no hematuria Musculoskeletal-no joint pain, no muscle tenderness Skin-no bruising, no rashes, no pruritus Neuro-no isolated weakness, no paresthesia, no weakness Psych-no depression, no anxiety Physical Exam 2 Physical Exam: General-alert and oriented x3, no fevers, no chills HEENT-head atraumatic and normocephalic, pupils equal and reactive to light, extraocular muscles intact Neck-no lymphadenopathy or thyromegaly, trachea midline Chest-clear to auscultation. No rales, wheezing or rhonchi Cardiac-regular rate and rhythm, normal S1 and S2 Abdomen-normal bowel sounds, nontender, no hepatosplenomegaly GUFoley catheter in place without hematuria Extremities-no cyanosis, clubbing, or edema Neuro-cranial nerves II through XII intact, motor and sensory function within normal limits, strength symmetrical with generalized weakness, no focal deficits Psych-normal affect, normal mood Results & Data Results & Data Vital Signs (Past 12 Hours) Vital Signs Temp Pulse Resp BP Pulse Ox O2 Del Method 04/14/23 11:58 36.7 C 80 16 119/55 L 99 Room Air 04/14/23 08:00 36.8 C 83 18 122/63 97 Room Air 04/14/23 03:07 37.0 C 74 20 140/72 95 Room Air Laboratory Results 04/14/23 06:04 04/14/23 06:04 PG Care Time/CCT Total # of Minutes Spent Total Time Spent with Patient: Total time spent is greater than 50% in coordination of care (as documented) at patient's floor/unit and/or counseling patient: Coding Level of Care Code 29904 SUB INP/OBS CARE 3/50MIN Diagnoses Pneumonia J18.9 Pneumonia type: aspiration pneumonia Acute respiratory failure with hypoxia J96.01 Thrombocytopenia D69.6 Pancytopenia D61.818 Elevated INR R79.1 Hemodialysis patient Z99.2 Paroxysmal atrial fibrillation I48.0 Indwelling Chandler catheter present Z97.8 Bacteremia R78.81 Severe sepsis A41.9; R65.20 Cardiomyopathy I42.9 (1) Pneumonia Pneumonia type: aspiration pneumonia
[2023-04-14] MEDS: EPOETIN ALFA 10,000 UNITS/ML VIAL IV ONE (16:26)
[2023-04-14] MEDS: MIRTAZAPINE TAB 15 MG TAB PO SCH (21:16)
[2023-04-15 06:35] LABS: Basophils # (auto) 0.02 K/uL (0.00-0.20); Basophils % (auto) 0.8 %; Eosinophils # (auto) 0.04 K/uL (0.00-0.50); Eosinophils % (auto) 1.5 %; Hematocrit (blood only) 23.3 % (42.0-52.0); Hemoglobin 7.8 g/dl (14.0-18.0); Immature Granulocytes # (auto) 0.01 K/uL (0.01-0.20); Immature Granulocytes % (auto) 0.4 %; Lymphocytes # (auto) 0.92 K/uL (1.20-3.40); Mean Corpuscular Hemoglobin 29.1 pg (25.0-34.0); Mean Corpuscular Hgb Conc 33.5 g/dL (32.0-36.0); Mean Corpuscular Volume 86.9 fL (80.0-100.0); Mean Platelet Volume 11.1 fL (9.4-12.4); Monocytes % (auto) 15.2 %; Neutrophils # (auto) 1.24 K/uL (1.40-6.50); Neutrophils % (auto) 47.1 %; Platelet Count 90 K/uL (130-400); RDW Coefficient of Variation 18.7 % (11.5-14.5); RDW Standard Deviation 56.9 fL (36.4-46.3); Red Blood Count 2.68 M/uL (4.70-6.10); White Blood Count 2.63 K/ul (4.8-10.8)
[2023-04-15 06:57] LABS: Polychromasia 1+
[2023-04-15 06:59] LABS: INR 1.6 (0.9-1.1)
[2023-04-15 07:01] LABS: Calcium 8.2 mg/dl (8.6-10.3); Creatinine Clr Calc Pharmacy 13.6 ml/min; Est GFR (African American) 16.8 ml/min; Est GFR (Non-African American) 14.5 ml/min; Potassium 3.7 mmol/L (3.5-5.1)
--- NOTE | 2023-04-15 08:34 | Nephrology Progress Note ---
Date of Service April 15, 2023 Assessment & Plan (1) ESRD (end stage renal disease): Plan: * Outpatient Rx is TTS 3.5 hrs, 400/800, 3K, 137Na. EDW 64.5 kg * No acute indication for HD today. Will plan next HD for am * Continue renal diet,sevelamer QA (2) Acute respiratory failure with hypoxia: Plan: * Attributed to aspiration pneumonia. 04/05/23 video swallowing study revealed silent aspiration w/ thin barium. No dietary change recommended at this time * Now breathing comfortably on RA (3) H/O stem cell transplant: Plan: * Multiple myeloma s/p bone marrow transplant 2013 * Pancytopenia is gradually improving * s/p CT guided bone marrow biopsy 04/08/23 - results pending * HIT test - pending (4) Anemia: Plan: * High ferritin. Hold IV iron * Epogen 75526 units with HD 04/06 * Peripheral smear negative for schistocytes/TMA (5) Physical deconditioning: Plan: * 04/11/23 PT evaluation - moderate assistance to sit up, ambulated short distance w/ rolling walker, fatigues easily * Possible transfer to [facility] following hospitalization Admission and Anticipated Discharge Date Admission Date: April 01, 2023 Subjective Mr. Londono was evaluated in his hospital room this morning. He denied fever, productive cough, or abdominal pain. He was dialyzed yesterday for 2.5 L UF. Mr. Londono voiced no medical concerns. He is awaiting the results of his bone marrow biopsy Review of Systems Constitutional: no fever Eyes: no worsening vision Ear, Nose, Mouth, Throat: no problem reported Respiratory: no cough and no dyspnea Cardiovascular: no chest pain Gastrointestinal: no abdominal pain, no nausea, no vomiting and no diarrhea/loose stools Genitourinary: no problem reported Physical Exam Constitutional: + frail appearing; not in distress Eyes: PERRL, conjunctivae normal, anicteric sclerae ENMT: external ear and nose normal, oropharynx normal Neck: trachea midline, no thyromegaly (R IJ TCC w/ clean, dry dressing in place) Respiratory: normal respiratory effort, lungs clear to auscultation Cardiovascular: RRR, no murmur, no edema Extremities: + AV fistula (LUE BC AVG + bruit) Gastrointestinal (Abdomen): normal bowel sounds, soft, nontender, no hepatosplenomegaly Musculoskeletal: Extremities: no cyanosis Skin: no rashes, warm and dry Neurologic: Speech / Cognition: normal speech and normal cognition Psychiatric: Orientation: oriented x 3 Affect: + flat affect Results & Data Vital Signs (Past 12 Hours) Vital Signs Temp Pulse Pulse Resp BP Pulse Ox O2 Del Method 04/15/23 07:55 36.9 C 88 18 125/60 95 Room Air 04/15/23 02:35 37.2 C 90 18 133/60 96 Room Air 04/15/23 00:38 Room Air 04/15/23 00:30 93 H 04/14/23 23:31 37.2 C 92 H 18 132/55 L 98 Room Air 04/14/23 21:00 Room Air Laboratory Results Laboratory Results - last 24 hr 04/15/23 06:15 WBC 2.63 L RBC 2.68 L Hgb 7.8 L Hct 23.3 L MCV 86.9 MCH 29.1 MCHC 33.5 RDW Std Deviation 56.9 H RDW Coeff of Berto 18.7 H Plt Count 90 L MPV 11.1 Immature Gran % (Auto) 0.4 Neut % (Auto) 47.1 Lymph % (Auto) 35.0 Mcintosh % (Auto) 15.2 Eos % (Auto) 1.5 Baso % (Auto) 0.8 Neut # (Auto) 1.24 L Lymph # (Auto) 0.92 L Mcintosh # (Auto) 0.40 Eos # (Auto) 0.04 Baso # (Auto) 0.02 Immature Gran # (Auto) 0.01 Polychromasia 1+ PT 17.0 H INR 1.6 H Sodium 137 Potassium 3.7 Chloride 106 Carbon Dioxide 24 Anion Gap 7 BUN 30 H D Creatinine 3.74 H D Est Cr Clr Drug Dosing 13.6 Est GFR ( Amer) 16.8 Est GFR (Non-Af Amer) 14.5 BUN/Creatinine Ratio 8.0 L Glucose 98 Calcium 8.2 L Diagnostic Findings 04/08/23 Bone marrow biopsy - pending PG Care Time/CCT Total # of Minutes Spent Total Time Spent with Patient: Total time spent is greater than 50% in coordination of care (as documented) at patient's floor/unit and/or counseling patient: Coding Level of Care Code 73544 SUB INP/OBS CARE 3/50MIN Diagnoses ESRD (end stage renal disease) N18.6 Acute respiratory failure with hypoxia J96.01 H/O stem cell transplant Z94.84 Anemia D64.9 Physical deconditioning R53.81
[2023-04-15] MEDS: HEPARIN SODIUM/DEXTROSE 25,000 UNITS/500 ML BAG IV SCH (09:00)
[2023-04-15] MEDS: [UNRECOGNIZED DRUG - OTHER] SCH (10:07)
[2023-04-15] MEDS: WARFARIN SOD 7.5 MG TAB PO ONE (10:59)
--- NOTE | 2023-04-15 15:00 | Hospitalist Progress Note ---
Date of Service April 15, 2023 Assessment & Plan (1) Pneumonia: Plan: Due to suspected aspiration. Video swallow eval showed silent aspiration. He has completed his antibiotic course. He is now on room air (2) Acute respiratory failure with hypoxia: Plan: Present on admission. Resolved. Now on room air (3) Thrombocytopenia: Plan: Platelet count continues to improve. Now up to 90,000. Serial labs. No signs of hemorrhage . Hematology/oncology consultation appreciated (4) Pancytopenia: Plan: Due to multiple myeloma. He is status post stem cell transplant. Hematology consultation appreciated. Bone marrow biopsy completed April 08. Pathology report remains pending. Continue daily labs (5) Elevated INR: Plan: On Coumadin for [facility] Kenneth metallic AVR and a. fib . Coumadin was reversed with vitamin K due to thrombocytopenia but has been restarted. The INR remains low but is now beginning to rise. Continue heparin drip bridging. Serial labs (6) Hemodialysis patient: Plan: End-stage renal disease. Continue hemodialysis (7) Paroxysmal atrial fibrillation: Plan: Currently in NSR. Telemetry. Continue current medical management. (8) Indwelling Chandler catheter present: Plan: Chronic. Replaced in the ER (9) Bacteremia: Plan: staph bacteremia, coag negative. Appears to be contamination . Repeat blood cultures showed no growth . ECHO shows no obvious vegetation (10) Severe sepsis: Plan: Present on admission. Now resolved (11) Cardiomyopathy: Plan: Known EF 35 -40 %. Continue current medical management. Plan IPR has been denied. Case management pursuing SNF placement. [facility] Admission and Anticipated Discharge Date Admission Date: April 01, 2023 Subjective Alert and oriented. No new problems. INR is up to 1.6. Continue heparin drip until INR is therapeutic. Pathology report from the bone marrow biopsy done April 08 remains pending. Anticipate discharge to [facility] sometime next week. I spoke to his , Anabell, today by phone, April 15. Platelet count has improved to 90,000. Hemoglobin stable at 7.8. Review of Systems 2 Review of Systems: Constitutional-no fever or chills ENT-no blurred vision, no double vision, no epistaxis, no sore throat Respiratory-no cough, no wheezing, no shortness of breath Cardiac-no palpitations, no chest pain, no syncope GI-no nausea, vomiting, diarrhea, melena, hematochezia -no urinary retention, no urinary incontinence, no dysuria, no hematuria Musculoskeletal-no joint pain, no muscle tenderness Skin-no bruising, no rashes, no pruritus Neuro-no isolated weakness, no paresthesia, no weakness Psych-no depression, no anxiety Physical Exam 2 Physical Exam: General-alert and oriented x3, no fevers, no chills HEENT-head atraumatic and normocephalic, pupils equal and reactive to light, extraocular muscles intact Neck-no lymphadenopathy or thyromegaly, trachea midline Chest-clear to auscultation. No rales, wheezing or rhonchi Cardiac-regular rate and rhythm, normal S1 and S2 Abdomen-normal bowel sounds, nontender, no hepatosplenomegaly GUFoley catheter in place without hematuria Extremities-no cyanosis, clubbing, or edema Neuro-cranial nerves II through XII intact, motor and sensory function within normal limits, strength symmetrical with generalized weakness, no focal deficits Psych-normal affect, normal mood Results & Data Results & Data Vital Signs (Past 12 Hours) Vital Signs Temp Pulse Resp BP Pulse Ox O2 Del Method 04/15/23 11:57 36.8 C 86 20 129/55 L 99 Room Air 04/15/23 07:55 36.9 C 88 18 125/60 95 Room Air Laboratory Results 04/15/23 06:15 04/15/23 06:15 PG Care Time/CCT Total # of Minutes Spent Total Time Spent with Patient: Total time spent is greater than 50% in coordination of care (as documented) at patient's floor/unit and/or counseling patient: Coding Level of Care Code 84600 SUB INP/OBS CARE 3/50MIN Diagnoses Pneumonia J18.9 Pneumonia type: aspiration pneumonia Acute respiratory failure with hypoxia J96.01 Thrombocytopenia D69.6 Pancytopenia D61.818 Elevated INR R79.1 Hemodialysis patient Z99.2 Paroxysmal atrial fibrillation I48.0 Indwelling Chandler catheter present Z97.8 Bacteremia R78.81 Severe sepsis A41.9; R65.20 Cardiomyopathy I42.9 (1) Pneumonia Pneumonia type: aspiration pneumonia
[2023-04-15 17:19] LABS: ANTI-Xa, UFH(UnfractionatedHep 0.26 IU/ml (0.3-0.7)
[2023-04-15 23:43] LABS: ANTI-Xa, UFH(UnfractionatedHep 0.26 IU/ml (0.3-0.7)
[2023-04-16 06:17] LABS: Basophils # (auto) 0.03 K/uL (0.00-0.20); Basophils % (auto) 1.1 %; Eosinophils # (auto) 0.06 K/uL (0.00-0.50); Eosinophils % (auto) 2.1 %; Hematocrit (blood only) 24.8 % (42.0-52.0); Hemoglobin 7.9 g/dl (14.0-18.0); Immature Granulocytes # (auto) 0.01 K/uL (0.01-0.20); Immature Granulocytes % (auto) 0.4 %; Lymphocytes # (auto) 0.98 K/uL (1.20-3.40); Lymphocytes % (auto) 34.8 %; Mean Corpuscular Hemoglobin 28.4 pg (25.0-34.0); Mean Corpuscular Hgb Conc 31.9 g/dL (32.0-36.0); Mean Corpuscular Volume 89.2 fL (80.0-100.0); Mean Platelet Volume 10.1 fL (9.4-12.4); Monocytes % (auto) 10.6 %; Neutrophils # (auto) 1.44 K/uL (1.40-6.50); Platelet Count 79 K/uL (130-400); RDW Coefficient of Variation 18.9 % (11.5-14.5); RDW Standard Deviation 60.2 fL (36.4-46.3); Red Blood Count 2.78 M/uL (4.70-6.10); White Blood Count 2.82 K/ul (4.8-10.8)
[2023-04-16 06:35] LABS: ANTI-Xa, UFH(UnfractionatedHep 0.31 IU/ml (0.3-0.7); INR 1.9 (0.9-1.1); Prothrombin Time 19.7 Seconds (9.0-12.0)
[2023-04-16 06:46] LABS: BUN Creatinine Ratio 8.4 (10-20); Calcium 8.5 mg/dl (8.6-10.3); Creatinine Clr Calc Pharmacy 10.1 ml/min; Est GFR (African American) 11.5 ml/min; Est GFR (Non-African American) 9.9 ml/min; Potassium 3.9 mmol/L (3.5-5.1)
[2023-04-16] MEDS ORDERED: SODIUM CHLORIDE 0.9% 1,000 ML IV PRN (07:00)
[2023-04-16 07:07] LABS: Ovalocytes 1+; Polychromasia 1+; Tear Drop Cells 1+
[2023-04-16] MEDS: EPOETIN ALFA 10,000 UNITS/ML VIAL IV SCH (11:00)
--- NOTE | 2023-04-16 11:16 | Nephrology Progress Note ---
Date of Service April 16, 2023 Assessment & Plan (1) ESRD (end stage renal disease): (2) Anemia: (3) Secondary hyperparathyroidism: (4) Hypertension: Plan ESRD, on hemodialysis since July 2022 via right IJ tunneled dialysis catheter. Admitted to the hospital with pneumonia, Coumadin coagulopathy , overall doing better. Had bone marrow biopsy for pancytopenia, with history of bone marrow transplant for history of multiple myeloma, result pending Otherwise asymptomatic. Tolerating dialysis. -- Continue intermittent dialysis on Tuesday, , Tuesday. --continue Nephro caps daily. --On Renvela 1 tab 3 times daily with meals --Epogen 10,000 units x 1 dose with dialysis today -- [facility]ing [facility]. Will follow Admission and Anticipated Discharge Date Admission Date: April 01, 2023 Kimberly Swenson was seen and evaluated during dialysis this morning. Tolerating dialysis well, acceptable weight gain, blood pressure slightly low but stable, asymptomatic. Denies shortness of breath, chest pain, cough. No fever or chills. Tunneled dialysis catheter functioning well. Review of Systems Review of Systems: Detailed review of system was done and pertinent positives and negatives are mentioned above. Physical Exam Constitutional: WD/WN, vitals as above + ill appearing; no acute distress Neck: normal visual inspection rt IJ TDC, no active bleeding. Respiratory: Auscultation: lungs clear to auscultation bilaterally Cardiovascular: Rate/Rhythm: regular rate and regular rhythm Heart Sounds: + murmur Extremities: no edema Skin: no rashes Neurologic: no focal motor deficits Psychiatric: Orientation: alert and oriented x 3 Results & Data Vital Signs (Past 12 Hours) Vital Signs Temp Pulse Pulse Resp BP BP Pulse Ox 04/16/23 10:30 84 112/58 L 04/16/23 10:00 84 117/55 L 04/16/23 09:35 83 120/54 L 04/16/23 09:35 36.5 C 83 04/16/23 07:43 36.7 C 89 17 141/69 H 97 04/16/23 03:26 36.6 C 80 18 120/88 94 04/16/23 01:25 36.7 C 84 18 127/61 95 04/16/23 00:00 86 O2 Del Method 04/16/23 10:30 04/16/23 10:00 04/16/23 09:35 04/16/23 09:35 04/16/23 07:43 Room Air 04/16/23 03:26 Room Air 04/16/23 01:25 Room Air 04/16/23 00:00 PG Care Time/CCT Total # of Minutes Spent Total Time Spent with Patient: Total time spent is greater than 50% in coordination of care (as documented) at patient's floor/unit and/or counseling patient: Coding Level of Care Code 62693 SUB INP/OBS CARE 2MIN Diagnoses ESRD (end stage renal disease) N18.6 Anemia D64.9 Secondary hyperparathyroidism N25.81 Hypertension I10
--- NOTE | 2023-04-16 14:04 | Hospitalist Progress Note ---
Date of Service April 16, 2023 Assessment & Plan (1) Pneumonia: Plan: Due to suspected aspiration. Video swallow eval showed silent aspiration. He has completed his antibiotic course. He is now on room air (2) Acute respiratory failure with hypoxia: Plan: Present on admission. Resolved. Now on room air (3) Thrombocytopenia: Plan: Platelet count improved. Currently 79,000. No active bleeding. Serial labs. No signs of hemorrhage . Hematology/oncology consultation appreciated (4) Pancytopenia: Plan: Due to multiple myeloma. He is status post stem cell transplant. Hematology consultation appreciated. Bone marrow biopsy completed April 08. Pathology report remains pending. Continue daily labs (5) Elevated INR: Plan: On Coumadin for [facility] Kenneth metallic AVR and a. fib . Coumadin was reversed with vitamin K due to thrombocytopenia but has been restarted. The INR has now risen to almost therapeutic levels. Continue heparin drip bridging. Anticipate discontinuing heparin drip tomorrow, April 17. Serial labs (6) Hemodialysis patient: Plan: End-stage renal disease. Continue hemodialysis (7) Paroxysmal atrial fibrillation: Plan: Currently in NSR. Telemetry. Continue current medical management. (8) Indwelling Chandler catheter present: Plan: Chronic. Replaced in the ER (9) Bacteremia: Plan: staph bacteremia, coag negative. Appears to be contamination . Repeat blood cultures showed no growth . ECHO shows no obvious vegetation (10) Severe sepsis: Plan: Present on admission. Now resolved (11) Cardiomyopathy: Plan: Known EF 35 -40 %. Continue current medical management. Plan IPR has been denied. Case management pursuing SNF placement. Probable placement at [facility] sometime next week Admission and Anticipated Discharge Date Admission Date: April 01, 2023 Subjective The patient was seen while in dialysis. He is stable overall. INR has improved to 1.9. Will continue heparin drip bridge which probably can be discontinued tomorrow, April 17. Hemoglobin stable at 7.9. Bone marrow biopsy report from April 08 remains pending. Platelet count remains moderately low but stable. No transfusion necessary. Anticipate discharge to [facility] sometime next week Review of Systems 2 Review of Systems: Constitutional-no fever or chills ENT-no blurred vision, no double vision, no epistaxis, no sore throat Respiratory-no cough, no wheezing, no shortness of breath Cardiac-no palpitations, no chest pain, no syncope GI-no nausea, vomiting, diarrhea, melena, hematochezia -no urinary retention, no urinary incontinence, no dysuria, no hematuria Musculoskeletal-no joint pain, no muscle tenderness Skin-no bruising, no rashes, no pruritus Neuro-no isolated weakness, no paresthesia, no weakness Psych-no depression, no anxiety Physical Exam 2 Physical Exam: General-alert and oriented x3, no fevers, no chills HEENT-head atraumatic and normocephalic, pupils equal and reactive to light, extraocular muscles intact Neck-no lymphadenopathy or thyromegaly, trachea midline Chest-clear to auscultation. No rales, wheezing or rhonchi Cardiac-regular rate and rhythm, normal S1 and S2 Abdomen-normal bowel sounds, nontender, no hepatosplenomegaly GUFoley catheter in place without hematuria Extremities-no cyanosis, clubbing, or edema Neuro-cranial nerves II through XII intact, motor and sensory function within normal limits, strength symmetrical with generalized weakness, no focal deficits Psych-normal affect, normal mood Results & Data Results & Data Vital Signs (Past 12 Hours) Vital Signs Temp Pulse Pulse Resp BP BP Pulse Ox 04/16/23 13:06 91 H 108/55 L 04/16/23 13:00 89 103/50 L 04/16/23 12:30 89 104/54 L 04/16/23 12:00 89 114/54 L 04/16/23 11:30 86 116/54 L 04/16/23 11:00 87 104/53 L 04/16/23 10:30 84 112/58 L 04/16/23 10:00 84 117/55 L 04/16/23 09:35 83 120/54 L 04/16/23 09:35 36.5 C 83 04/16/23 07:43 36.7 C 89 17 141/69 H 97 04/16/23 03:26 36.6 C 80 18 120/88 94 O2 Del Method 04/16/23 13:06 04/16/23 13:00 04/16/23 12:30 04/16/23 12:00 04/16/23 11:30 04/16/23 11:00 04/16/23 10:30 04/16/23 10:00 04/16/23 09:35 04/16/23 09:35 04/16/23 07:43 Room Air 04/16/23 03:26 Room Air Laboratory Results 04/16/23 05:51 04/16/23 05:51 PG Care Time/CCT Total # of Minutes Spent Total Time Spent with Patient: Total time spent is greater than 50% in coordination of care (as documented) at patient's floor/unit and/or counseling patient: Coding Level of Care Code 93159 SUB INP/OBS CARE 3/50MIN Diagnoses Pneumonia J18.9 Pneumonia type: aspiration pneumonia Acute respiratory failure with hypoxia J96.01 Thrombocytopenia D69.6 Pancytopenia D61.818 Elevated INR R79.1 Hemodialysis patient Z99.2 Paroxysmal atrial fibrillation I48.0 Indwelling Chandler catheter present Z97.8 Bacteremia R78.81 Severe sepsis A41.9; R65.20 Cardiomyopathy I42.9 (1) Pneumonia Pneumonia type: aspiration pneumonia
[2023-04-16] MEDS: WARFARIN SOD 7.5 MG TAB PO ONE (17:09)
[2023-04-17 06:48] LABS: Calcium 8.6 mg/dl (8.6-10.3); Potassium 3.7 mmol/L (3.5-5.1)
[2023-04-17 06:53] LABS: BUN Creatinine Ratio 7.3 (10-20); Creatinine Clr Calc Pharmacy 12.9 ml/min; Est GFR (African American) 17.9 ml/min; Est GFR (Non-African American) 15.4 ml/min
[2023-04-17 06:58] LABS: Basophils # (auto) 0.04 K/uL (0.00-0.20); Basophils % (auto) 1.4 %; Eosinophils # (auto) 0.07 K/uL (0.00-0.50); Eosinophils % (auto) 2.5 %; Hematocrit (blood only) 26.9 % (42.0-52.0); Hemoglobin 8.3 g/dl (14.0-18.0); Immature Granulocytes # (auto) 0.03 K/uL (0.01-0.20); Immature Granulocytes % (auto) 1.1 %; Lymphocytes # (auto) 1.11 K/uL (1.20-3.40); Lymphocytes % (auto) 39.5 %; Mean Corpuscular Hemoglobin 28.9 pg (25.0-34.0); Mean Corpuscular Hgb Conc 30.9 g/dL (32.0-36.0); Mean Corpuscular Volume 93.7 fL (80.0-100.0); Mean Platelet Volume 11.8 fL (9.4-12.4); Monocytes # (auto) 0.31 K/uL (0.11-0.59); Neutrophils # (auto) 1.25 K/uL (1.40-6.50); Neutrophils % (auto) 44.5 %; Platelet Count 89 K/uL (130-400); RDW Coefficient of Variation 19.5 % (11.5-14.5); RDW Standard Deviation 64.1 fL (36.4-46.3); Red Blood Count 2.87 M/uL (4.70-6.10); White Blood Count 2.81 K/ul (4.8-10.8)
[2023-04-17 07:52] LABS: ANTI-Xa, UFH(UnfractionatedHep 0.34 IU/ml (0.3-0.7); INR 2.3 (0.9-1.1); Prothrombin Time 24.1 Seconds (9.0-12.0)
--- NOTE | 2023-04-17 10:33 | Nephrology Progress Note ---
Date of Service April 17, 2023 Assessment & Plan (1) ESRD (end stage renal disease): (2) Anemia: (3) Secondary hyperparathyroidism: (4) Hypertension: Plan ESRD, on hemodialysis since July 2022 via right IJ tunneled dialysis catheter. Admitted to the hospital with pneumonia, Coumadin coagulopathy , overall doing better. Had bone marrow biopsy for pancytopenia, with history of bone marrow transplant for history of multiple myeloma, result pending Otherwise asymptomatic. Blood pressure, volume status acceptable. --plan for next dialysis on Tuesday. --continue Nephro caps daily. --On Renvela 1 tab 3 times daily with meals --Epogen 10,000 units x 1 dose given with dialysis on 04/16/23 -- [facility] Admission and Anticipated Discharge Date Admission Date: April 01, 2023 Kimberly Swenson was seen and evaluated this morning. He was somnolent but easily awoke up and reports that he did not have good sleep last night. Denies shortness of breath, chest pain, cough. No fever or chills. Had dialysis yesterday. Currently blood pressure, volume status acceptable. Review of Systems Review of Systems: Detailed review of system was done and pertinent positives and negatives are mentioned above. Physical Exam Constitutional: WD/WN, vitals as above + ill appearing; no acute distress Neck: normal visual inspection rt IJ TDC, no active bleeding. Respiratory: Auscultation: lungs clear to auscultation bilaterally Cardiovascular: Rate/Rhythm: regular rate and regular rhythm Heart Sounds: + murmur Extremities: no edema Skin: no rashes Neurologic: no focal motor deficits Psychiatric: Orientation: alert and oriented x 3 Results & Data Vital Signs (Past 12 Hours) Vital Signs Temp Pulse Pulse Resp BP Pulse Ox O2 Del Method 04/17/23 07:49 36.8 C 90 18 131/64 98 Room Air 04/17/23 03:54 36.8 C 91 H 20 134/65 96 Room Air 04/17/23 00:00 89 04/16/23 22:48 37.1 C 74 18 128/65 94 Room Air PG Care Time/CCT Total # of Minutes Spent Total Time Spent with Patient: Total time spent is greater than 50% in coordination of care (as documented) at patient's floor/unit and/or counseling patient: Coding Level of Care Code 73458 SUB INP/OBS CARE 03/17MIN Diagnoses ESRD (end stage renal disease) N18.6 Anemia D64.9 Secondary hyperparathyroidism N25.81 Hypertension I10
--- NOTE | 2023-04-17 14:51 | Hospitalist Progress Note ---
Date of Service April 17, 2023 Assessment & Plan (1) Pneumonia: Plan: Due to suspected aspiration. Video swallow eval showed silent aspiration. He has completed his antibiotic course. He is now on room air (2) Acute respiratory failure with hypoxia: Plan: Present on admission. Resolved. Now on room air (3) Thrombocytopenia: Plan: Platelet count improved. Currently 83,000. No active bleeding. Serial labs. No signs of hemorrhage . Hematology/oncology consultation appreciated (4) Pancytopenia: Plan: Due to multiple myeloma. He is status post stem cell transplant. Hematology consultation appreciated. Bone marrow biopsy completed April 08. Pathology report remains pending. Continue daily labs (5) Elevated INR: Plan: On Coumadin for [facility] Kenneth metallic AVR and a. fib . Coumadin was reversed with vitamin K due to thrombocytopenia but has been restarted. INR is now 2.3. Heparin drip discontinued today, April 17. Daily Coumadin dosing and daily INR ordered. (6) Hemodialysis patient: Plan: End-stage renal disease. Continue hemodialysis per nephrology schedule (7) Paroxysmal atrial fibrillation: Plan: Currently in NSR. Telemetry. Continue current medical management. (8) Indwelling Chandler catheter present: Plan: Chronic. Replaced in the ER (9) Bacteremia: Plan: staph bacteremia, coag negative. Appears to be contamination . Repeat blood cultures showed no growth . ECHO shows no obvious vegetation (10) Severe sepsis: Plan: Present on admission. Now resolved (11) Cardiomyopathy: Plan: Known EF 35 -40 %. Continue current medical management. Plan IPR has been denied. Case management pursuing SNF placement. Hopeful discharge to [facility] tomorrowApril 18 Admission and Anticipated Discharge Date Admission Date: April 01, 2023 Subjective Alert and oriented. No new problems. INR is up to 2.3. Heparin drip has been discontinued. I spoke to his , Anabell, by phone. Hopeful discharge to [facility] tomorrow, April 18 Review of Systems 2 Review of Systems: Constitutional-no fever or chills ENT-no blurred vision, no double vision, no epistaxis, no sore throat Respiratory-no cough, no wheezing, no shortness of breath Cardiac-no palpitations, no chest pain, no syncope GI-no nausea, vomiting, diarrhea, melena, hematochezia -no urinary retention, no urinary incontinence, no dysuria, no hematuria Musculoskeletal-no joint pain, no muscle tenderness Skin-no bruising, no rashes, no pruritus Neuro-no isolated weakness, no paresthesia, no weakness Psych-no depression, no anxiety Physical Exam 2 Physical Exam: General-alert and oriented x3, no fevers, no chills HEENT-head atraumatic and normocephalic, pupils equal and reactive to light, extraocular muscles intact Neck-no lymphadenopathy or thyromegaly, trachea midline Chest-clear to auscultation. No rales, wheezing or rhonchi Cardiac-regular rate and rhythm, normal S1 and S2 Abdomen-normal bowel sounds, nontender, no hepatosplenomegaly GUFoley catheter in place without hematuria Extremities-no cyanosis, clubbing, or edema Neuro-cranial nerves II through XII intact, motor and sensory function within normal limits, strength symmetrical with generalized weakness, no focal deficits Psych-normal affect, normal mood Results & Data Results & Data Vital Signs (Past 12 Hours) Vital Signs Temp Pulse Resp BP Pulse Ox O2 Del Method 04/17/23 11:48 36.4 C L 87 18 136/67 100 Room Air 04/17/23 07:49 36.8 C 90 18 131/64 98 Room Air 04/17/23 03:54 36.8 C 91 H 20 134/65 96 Room Air Laboratory Results 04/17/23 06:01 04/17/23 06:01 PG Care Time/CCT Total # of Minutes Spent Total Time Spent with Patient: Total time spent is greater than 50% in coordination of care (as documented) at patient's floor/unit and/or counseling patient: Coding Level of Care Code 55897 SUB INP/OBS CARE 3/50MIN Diagnoses Pneumonia J18.9 Pneumonia type: aspiration pneumonia Acute respiratory failure with hypoxia J96.01 Thrombocytopenia D69.6 Pancytopenia D61.818 Elevated INR R79.1 Hemodialysis patient Z99.2 Paroxysmal atrial fibrillation I48.0 Indwelling Chandler catheter present Z97.8 Bacteremia R78.81 Severe sepsis A41.9; R65.20 Cardiomyopathy I42.9 (1) Pneumonia Pneumonia type: aspiration pneumonia
[2023-04-17] MEDS: WARFARIN SOD 5 MG TAB PO SCH (16:59)
[2023-04-18 07:33] LABS: Basophils # (auto) 0.02 K/uL (0.00-0.20); Basophils % (auto) 0.7 %; Eosinophils % (auto) 3.7 %; Hemoglobin 8.3 g/dl (14.0-18.0); Immature Granulocytes # (auto) 0.01 K/uL (0.01-0.20); Immature Granulocytes % (auto) 0.4 %; Lymphocytes # (auto) 0.86 K/uL (1.20-3.40); Lymphocytes % (auto) 31.6 %; Mean Corpuscular Hemoglobin 28.9 pg (25.0-34.0); Mean Corpuscular Hgb Conc 31.9 g/dL (32.0-36.0); Mean Corpuscular Volume 90.6 fL (80.0-100.0); Mean Platelet Volume 10.5 fL (9.4-12.4); Monocytes # (auto) 0.31 K/uL (0.11-0.59); Monocytes % (auto) 11.4 %; Neutrophils # (auto) 1.42 K/uL (1.40-6.50); Neutrophils % (auto) 52.2 %; Platelet Count 92 K/uL (130-400); RDW Coefficient of Variation 19.2 % (11.5-14.5); RDW Standard Deviation 62.5 fL (36.4-46.3); Red Blood Count 2.87 M/uL (4.70-6.10); White Blood Count 2.72 K/ul (4.8-10.8)
[2023-04-18 07:55] LABS: INR 2.7 (0.9-1.1); Prothrombin Time 27.8 Seconds (9.0-12.0)
[2023-04-18 08:22] LABS: Calcium 8.9 mg/dl (8.6-10.3); Creatinine Clr Calc Pharmacy 9.2 ml/min; Est GFR (African American) 11.8 ml/min; Est GFR (Non-African American) 10.2 ml/min; Potassium 3.7 mmol/L (3.5-5.1)
--- NOTE | 2023-04-18 09:47 | Nephrology Progress Note ---
Date of Service April 18, 2023 Assessment & Plan (1) ESRD (end stage renal disease): (2) Anemia: (3) Secondary hyperparathyroidism: (4) Hypertension: Plan ESRD, on hemodialysis since July 2022 via right IJ tunneled dialysis catheter. Admitted to the hospital with pneumonia, Coumadin coagulopathy , overall doing better. Had bone marrow biopsy for pancytopenia, with history of bone marrow transplant for history of multiple myeloma, result pending Doing well, asymptomatic. Blood pressure, volume status acceptable. --dialysis tomorrow --continue Nephro caps daily. --On Renvela 1 tab 3 times daily with meals --Epogen 10,000 units x 1 dose given with dialysis on 04/16/23 -- Waiting on discharge to Center care. Admission and Anticipated Discharge Date Admission Date: April 01, 2023 Kimberly Swenson was seen and evaluated this morning. He is doing about the same, denies shortness of breath, chest pain, cough. No fever or chills. Blood pressure, volume status acceptable. Review of Systems Review of Systems: Detailed review of system was done and pertinent positives and negatives are mentioned above. Physical Exam Constitutional: WD/WN, vitals as above + ill appearing; no acute distress Neck: normal visual inspection rt IJ TDC, no active bleeding. Respiratory: Auscultation: lungs clear to auscultation bilaterally Cardiovascular: Rate/Rhythm: regular rate and regular rhythm Heart Sounds: + murmur Extremities: no edema Skin: no rashes Neurologic: no focal motor deficits Psychiatric: Orientation: alert and oriented x 3 Results & Data Vital Signs (Past 12 Hours) Vital Signs Temp Pulse Pulse Resp BP Pulse Ox O2 Del Method 04/18/23 07:23 36.6 C 85 18 128/65 97 Room Air 04/18/23 03:40 36.5 C 82 21 133/60 96 Room Air 04/18/23 00:00 80 04/17/23 22:59 36.6 C 83 17 129/59 L 97 Room Air PG Care Time/CCT Total # of Minutes Spent Total Time Spent with Patient: Total time spent is greater than 50% in coordination of care (as documented) at patient's floor/unit and/or counseling patient: Coding Level of Care Code 61288 SUB INP/OBS CARE 2/35MIN Diagnoses ESRD (end stage renal disease) N18.6 Anemia D64.9 Secondary hyperparathyroidism N25.81 Hypertension I10
--- NOTE | 2023-04-18 11:43 | Discharge Summary ---
Date of Service April 18, 2023 Admission HPI Per Admitting Provider Messi Londono is a 78-year-old male with end-stage renal disease on dialysis who presents to the ER due to fever and generalized weakness. Symptoms started on Tuesday following dialysis he appeared to be much more fatigued than usual however he appeared to recover slightly. Tuesday his noted he had a fever of 101. She wanted to bring his to the hospital yesterday as he had a recurrent fever and appeared to be getting more weak but he refused. Today he had a fever of 102.9 and was unable to get out of bed with increased confusion and short of breath therefore she called for an ambulance. He reports decreased appetite and has much less to eat and drink. He missed dialysis yesterday. He denies any diarrhea, abdominal pain, nausea or vomiting. Possible coughing more after eating but he is unsure. No sinus pain. No urinary symptoms (he still produces some urine with an indwelling cordero catheter in place (replaced in the ER). In the ER his INR was noted to be 9.4. His notes recently his warfarin dose was increased from 1mg x2 days and 0.5mg all other days to 1m x3 days and 0.5mg all other days. He is on warfarin for mechanical aortic valve replacement and atrial fibrillation with aim 2-3. He denies any epistaxis, hemoptysis, hematemesis, hematuria or external bleeding. Principal Diagnosis Acute systolic congestive heart failure, acute hypoxic respiratory failure Discharge Exam General-alert and oriented x3, no fevers, no chills HEENT-head atraumatic and normocephalic, pupils equal and reactive to light, extraocular muscles intact Neck-no lymphadenopathy or thyromegaly, trachea midline Chest-clear to auscultation. No rales, wheezing or rhonchi Cardiac-regular rate and rhythm, normal S1 and S2 Abdomen-normal bowel sounds, nontender, no hepatosplenomegaly GUFoley catheter in place without hematuria Extremities-no cyanosis, clubbing, or edema Neuro-cranial nerves II through XII intact, motor and sensory function within normal limits, strength symmetrical with generalized weakness, no focal deficits Psych-normal affect, normal mood Discharge Data Allergies Allergy/AdvReac Type Severity Reaction Status Date / Time benzonatate Allergy Severe Hallucinati Unverified 04/01/23 14:47 [From Glenroy Billingsley] ng ASHLEY Inhibitors AdvReac Intermediate COUGH Verified 04/01/23 14:47 acetic acid AdvReac Intermediate Vinegar - Verified 04/01/23 14:47 Swelling of Lip/Tongue/Throat Consultations 04/01/23 12:46 Consult Nephrology Routine 04/01/23 12:50 ED Decision to Admit Stat 04/02/23 08:21 Consult Hematology Routine 04/02/23 12:55 Consult Cardiology Routine Ordered Studies 04/05/23 09:30 FL video swallow Routine 04/08/23 11:00 IR bone marrow bx & asp Routine Hospital Course (1) Pneumonia: Due to suspected aspiration. Video swallow eval showed silent aspiration. He has completed his antibiotic course. He is now on room air (2) Acute respiratory failure with hypoxia: Present on admission. Resolved. Now on room air (3) Thrombocytopenia: Platelet count improving. Currently 92,000. No active bleeding. Serial labs. No signs of hemorrhage . Hematology/oncology consultation appreciated (4) Pancytopenia: Due to multiple myeloma. He is status post stem cell transplant. Hematology consultation appreciated. Bone marrow biopsy completed April 08. Pathology report remains pending. Continue daily labs (5) Elevated INR: On Coumadin for [facility] Kenneth metallic AVR and a. fib . Coumadin was reversed with vitamin K due to thrombocytopenia but has been restarted. INR is now 2.7. Heparin drip was discontinued on April 17. Daily Coumadin dosing and daily INR ordered. (6) Hemodialysis patient: End-stage renal disease. Continue hemodialysis per nephrology schedule (7) Paroxysmal atrial fibrillation: Currently in NSR. Telemetry. Continue current medical management. (8) Indwelling Cordero catheter present: Chronic. Replaced in the ER (9) Bacteremia: staph bacteremia, coag negative. Appears to be contamination . Repeat blood cultures showed no growth . ECHO shows no obvious vegetation (10) Severe sepsis: Present on admission. Now resolved (11) Cardiomyopathy: Known EF 35 -40 %. Continue current medical management. Plan Discharge to Center care today, April 18 Total Time Total Time Spent Total Time Spent (In Minutes): 45 minutes Discharge Plan Discharge Items Patient Disposition: Transfer Long Term Fac Reason For Visit: PNEUMONIA, ELEVATED INR Discharge Diagnosis: Acute systolic congestive heart failure, acute hypoxic respiratory failure, suspected pneumonia Activity: Resume your previous activity Non-emergency contact: Primary Care Provider Call non-emergency contact if: you have any medication questions and your symptoms worsen Follow-up/Referrals: Doug Franklin MD [Primary Care Provider] - Diet: Dialysis Renal and Heart Healthy Addtl Attending Provider Instructions: Take medications as directed. Follow-up with primary care provider as soon as possible after discharge from Center care Pending Studies at Discharge: Yes Studies:: Bone marrow biopsy report Stand-Alone Forms: My [facility] Skilled Items Patient informed of condition?: Yes DNR: Yes Discharge Level of Care: Skilled Communicable Disease: No Discharge Prognosis: Stable Lines: None Urinary Catheter: Yes Medications and DC Order Prescriptions: New warfarin 3 mg Tablet 3 mg PO DAILY@1600 Qty: 20 0RF mirtazapine 15 mg Tablet 7.5 mg PO HS Qty: 30 0RF polyethylene glycol 3350 [Miralax] 17 gram Powder In Packet 17 g PO DAILY PRN (Reason: constipation) Qty: 0 0RF Continued metoprolol tartrate 50 mg tablet 50 mg PO BID Qty: 60 5RF Rx Instructions: hold AM dose on HD days Tuesday, , Tuesday. loperamide 2 mg capsule 2 mg PO Q3H PRN (Reason: loose stool) Qty: 30 5RF tamsulosin 0.4 mg capsule 0.4 mg PO HS Qty: 30 1RF alprazolam [Xanax] 0.25 mg tablet 0.25 mg PO .COMPLEX Qty: 30 0RF Rx Instructions: 0.25 mg orally prior to hemodialysis; sevelamer carbonate 800 mg Tablet 800 mg PO TIDM Rx Instructions: must administer with a meal/food cholecalciferol (vitamin D3) [Vitamin D3] 50 mcg (2,000 unit) Capsule 2,000 mcg PO BID simvastatin 20 mg tablet 20 mg PO HS ProRenal 8 mg iron-800 mcg-1,000 unit tablet 1 tab PO DAILY amoxicillin 500 mg capsule 2,000 mg PO ONCE PRN (Reason: dental appointment) Creon 36,000-114,000- 180,000 unit capsule,delayed release(DR/EC) 1 cap PO QID Rx Instructions: with food Discontinued warfarin 5 mg tablet See Rx Instructions .ROUTE .COMPLEX Rx Instructions: Take 5mg by mouth on Mondays/Tuesday/Tuesday and 2.5mg all other days. Recent test was 9.5INR Discharge Orders: Discharge Order- CHF (Routine); Ordered 04/18/23 Ordered By: Asad Farah Admission Data Admit Date/Time: 04/01/23 13:23 Attending Provider: Asad Farah Admit Provider: Henry Colindres Primary Care Provider: Doug Franklin Other Providers: Mary Jane Wheeler; Henry Colindres; Aroldo Espinoza; Jm Mcgill; [facility]; [facility] Coding Level of Care Code 95264 INP/OBS DISCH >30 MIN Diagnoses Pneumonia J18.9 Pneumonia type: aspiration pneumonia Acute respiratory failure with hypoxia J96.01 Thrombocytopenia D69.6 Pancytopenia D61.818 Elevated INR R79.1 Hemodialysis patient Z99.2 Paroxysmal atrial fibrillation I48.0 Indwelling Cordero catheter present Z97.8 Bacteremia R78.81 Severe sepsis A41.9; R65.20 Cardiomyopathy I42.9
[2023-04-18] MEDS: WARFARIN SOD 3 MG TAB PO SCH (14:17)
== END 2023-04-18 15:05 | DRG 177 ==
LOC: ED 10:48 → SUATTDRO 13:23 → EDINP 13:23 → 2E 14:49

== ENCOUNTER 2023-05-22 14:29 | Inpatient (IN) ==
--- OUTSIDE RECORDS SUMMARY | 2023-05-22 14:36 | External Medical Summary | Summary of Care ---
Author Name Unknown Organization [facility] Address [address] [place] [address] Phone [phone] Care Team Providers Care Endless Belt Finisher Name Role Phone Pro, Doug Castillo MD Primary Care Provider [phone] Encounter Details Date Type Department Care Team (Late st Contact Info) Description 05/20/2023 Telephone Hematology/Oncology Treatment, [place] [address] [place] [address] Benedicto Frey MD [address] [place] [address] Allergies Active Allergy Reactions Criticality Noted Date Comments Torito Inhibitors 04/16/2013 Acetic Acid 04/04/2014 Severe mouth uclers documented as of this encounter (statuses as of 05/20/2023) Medications Medication Sig Dispensed Refills Start Date End Date Status SIMVASTATIN 20 MG PO TABS Take by mouth. Takes at night 0 Active METOPROLOL TARTRATE 50 MG PO TABSIndications:Atr ial fibrillation (HCC) 1 Tab Oral 2 times a day 60 Tab 2 12/20/2013 Active Multivitamin Adult (Minerals) Oral Tablet Take by mouth. 0 Active Sodium Bicarbonate 325 MG Oral Tablet Take 1 Tablet by mouth in the morning and 1 Tablet at noon and 1 Tablet in the evening and 1 Tablet before bedtime. 0 Active Tamsulosin HCl 0.4 MG Oral Capsule (Flomax) Take 1 Capsule by mouth in the morning. 0 Active Insulin Syringe 30G X 5/16" 1 MLIndications:Atria l fibrillation, unspecified type (HCC) Inject under the skin every 12 hours. Use with heparin as directed before and after procedure 10 Each 0 11/09/2022 Active Warfarin Sodium 5 MG Oral Tablet (Coumadin)Indicatio ns:S/P aortic valve replacement with prosthetic valve Take [...] evening. Take with meals. 0 Active Creon [id number] UNIT Oral Capsule Delayed Release Particles 3 times a day. 0 04/29/2022 Active Loperamide HCl 2 MG Oral Capsule (Imodium) Take 1 Capsule by mouth 4 times a day as needed. 0 04/08/2022 Active Cholecalciferol 50 MCG (2000 UT) Oral Capsule 2 times a day. 0 11/15/2022 Active Mirtazapine 15 MG Oral Tablet (Remeron) Take 1 Tablet by mouth at bedtime. 0 05/04/2023 Active ALPRAZolam 0.25 MG Oral Tablet (Xanax) Takes 1 tablet on , , sat prior to dialysis. 30 Tablet 0 05/04/2023 Active Cyanocobalamin 1000 MCG/ML Injection Solution (Cyanocobalamin)Ind ications:Vitamin B12 deficiency Inject 1,000 mcg into a large muscle every 30 days. 3 mL 1 05/16/2023 Active BD Luer-Robert Syringe 25G X 1" 3 ML (Syringe/Needle (Disp))Indications: Vitamin B12 deficiency Use with b12 injection. 50 Each 0 05/16/2023 Active Warfarin Sodium 5 MG Oral Tablet (Coumadin) Take 1 to 2 tablets by mouth daily as directed by [facility] on phone. 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, with heart failure 05/04/2023 Last Assessment & Plan: Current CKD Stage: ESRD on dialysis "RED FLAG" symptoms: NO IDENTIFIED SYMPTOMS CKD Complications: Heart Failure HTN Anemia Secondary Hyperparathyroidism Additional Comments Continue dialysis enriquetabart, av, sat Secondary hyperparathyroidism of renal origin Hyperlipidemia 05/04/2023 Disease of pancreas, unspecified 05/04/2023 Overview: EGD, W/ENDOSCOPIC US 07/06/2022 multiple stones gallbladder/15mm muti-cystic lesion pancreatic head/22mm cystic lesion pancreas/biopsies show pseudocyst Indwelling Chandler catheter present 05/04/2023 Benign prostatic hyperplasia with lower urinary tract symptoms 04/18/2023 Major depressive disorder, single episode, unspe cified 04/18/2023 Last Assessment & Plan: Mood stable on current dose remeron History of multiple myeloma 12/20/2018 Vitamin B12 deficiency 04/22/2017 Anxiety disorder 12/26/2013 A-fib 12/20/2013 Intestinal infection due to Clostridium difficil e 12/13/2013 Stem cells transplant status 12/06/2013 Vitamin D insufficiency 11/20/2013 Encounter for antineoplastic chemotherapy 2013 S/P aortic valve replacement with prosthetic matteo ve 04/17/2013 alf current use of anticoagulant therapy 0 04/17/2013 Overview: ICD-10 update of inactive term Anticoagulation management encounter 04/17/2013 Multiple myeloma 04/11/2013 Overview: DATE OF DIAGNOSIS: March 2013 TREATMENT HISTORY: - Cybor-D - Status post autologous stem cell transplant 12/06/13 followed by 2 years of Revlimid Last Assessment & Plan: Continues to folllow with hem/onc Labs have been stable documented as of this encounter (statuses as of 05/20/2023) Resolved Problems Problem Noted Date Diagnosed Date Resolved Date Tachycardia 12/16/2013 12/26/2013 Metabolic acidosis 12/15/2013 4 Electrolyte and fluid disorder 12/13/2013 12/26/2013 Shingles 09/20/2013 12/11/2013 documented as of this encounter (statuses as of 05/20/2023) Immunizations Name Administration Dates Next Due COVID-19 [...] encounter Miscellaneous Notes * Telephone Encounter - Bernadine Kraft OSA - 05/20/2023 11:02 AM EDT Apt canceled * Telephone Encounter - Aayush Funk RN - 05/20/2023 10:27 AM EDT Pt was a no show to his last B12/port flush, he will be receiving port flush/B12 at home, nurse sent TT asking if patient is ok to receive, advised yes patient is due now. Scheduling- Please cancel treatment appointment on 06/05 - pt will be having port flushes and b12 completed at home. Please keep follow up with Dr. Brown as scheduled. Thank you. documented in this encounter Plan of Treatment Upcoming Encounters Date Type Department Care Team (Late st Contact Info) Description 05/20/2023 12:30 PM EDT Home Visit [facility], [facility] [address] [id number] Xiomara Chowdhury RN [address] [id number] 05/23/2023 7:00 AM EDT Laboratory Lab Mobile Phlebotomy [facility] [address] [place] [address] [facility] Draw [address] [place] [address] [id number] 05/24/2023 6:00 AM EDT Anticoagulation Pharmacy Call Center [address] [facility] [address] [address] [facility], [facility] [address] [facility] [address] [address] 05/30/2023 2:30 PM EDT Laboratory Laboratory [facility] [address] [phone] William Rucker [facility] [address] [facility] [address] [address] 06/06/2023 2:30 PM EDT Office Visit Hematology/Oncology [facility] [address] [id number] Jono Brown MD [address] [address] 06/07/2023 8:30 AM EDT Home Visit [facility], [facility] [address] [address] Xiomara Chowdhury RN [address] [id number] 06/27/2023 3:00 PM EDT Home Visit [facility], [facility] [address] [address] Zachary Stevenson PA-C [address] [id number] Health Maintenance Due Date Last Done Comments [...] the patient have Health Care Power of Bill Adjuster? No Care Teams Endless Belt Finisher Relationship Specialty Start Date End Date Pro, Doug Castillo MD [address] [place] [address] PCP - General Internal Medicine 11/30/13 documented as of this encounter
--- OUTSIDE RECORDS SUMMARY | 2023-05-22 14:36 | External Medical Summary | Summary of Care ---
Author Name Unknown Organization [facility] Address [address] [place] [address] Phone [phone] Care Team Providers Care Credit Director Name Role Phone Pro, Doug Castillo MD Primary Care Provider +1- [phone] Reason for Visit * Reason Comments [facility]: Maintenance Encounter Details Date Type Department Care Team (Late st Contact Info) Description 05/20/2023 12:30 PM EDT Home Visit [facility], [facility] [address] [place] [address] Xiomara Chowdhury RN [address] [place] [id number] Allergies Active Allergy Reactions Criticality Noted Date Comments Torito Inhibitors 04/16/2013 Acetic Acid 04/04/2014 Severe mouth uclers documented as of this encounter (statuses as of 05/20/2023) Medications Medication Sig Dispensed Refills Start Date End Date Status SIMVASTATIN 20 MG PO TABS Take by mouth. Takes at night 0 Active METOPROLOL TARTRATE 50 MG PO TABSIndications:At rial fibrillation (HCC) 1 Tab Oral 2 times a day 60 Tab 2 12/20/2013 Active Tamsulosin HCl 0.4 MG Oral Capsule (Flomax) Take 1 Capsule by mouth in the morning. 0 Active Insulin Syringe 30G X 5/16" 1 MLIndications:Atri al fibrillation, unspecified type (HCC) Inject under the skin every 12 hours. Use with heparin as directed before and after procedure 10 Each 0 11/09/2022 Active Warfarin Sodium 5 MG Oral Tablet (Coumadin)Indicati ons:S/P aortic valve replacement with prosthetic valve Take [...] evening. Take with meals. 0 Active Creon [id number] UNIT Oral Capsule Delayed Release Particles 3 [...] 05/04/2023 Active Cyanocobalamin 1000 MCG/ML Injection Solution (Cyanocobalamin)In dications:Vitamin B12 deficiency Inject 1,000 mcg into a large muscle every 30 days. 3 mL 1 05/16/2023 Active BD Luer-Robert Syringe 25G X 1" 3 ML (Syringe/Needle (Disp))Indications :Vitamin B12 deficiency Use with b12 injection. 50 Each 0 05/16/2023 Active Warfarin Sodium 5 MG Oral Tablet (Coumadin) Take 1 to 2 tablets by mouth daily as directed by [facility] on phone. 135 Tablet 1 05/16/2023 Active ProRenal + D Oral Tablet Take 1 Tablet by mouth in the morning. 0 Active Multivitamin Adult (Minerals) Oral Tablet Take by mouth. 0 4 Discontinue d(Medicatio n List Clean Up) Sodium Bicarbonate 325 MG Oral Tablet Take 1 Tablet by mouth in the morning and 1 Tablet at noon and 1 Tablet in the evening and 1 Tablet before bedtime. 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, with heart failure 05/04/2023 Last Assessment & Plan: Current CKD Stage: ESRD on dialysis "RED FLAG" symptoms: NO IDENTIFIED SYMPTOMS CKD Complications: Heart Failure HTN Anemia Secondary Hyperparathyroidism Additional Comments Continue dialysis tues, thurs, sat Secondary hyperparathyroidism of renal origin Hyperlipidemia 05/04/2023 Disease of pancreas, unspecified 05/04/2023 Overview: EGD, W/ENDOSCOPIC US 07/06/2022 multiple stones gallbladder/15mm muti-cystic lesion pancreatic head/22mm cystic lesion pancreas/biopsies show pseudocyst Indwelling Cordero catheter present 05/04/2023 Benign prostatic hyperplasia with [...] valve replacement with prosthetic matteo ve 04/17/2013 half-way current use of anticoagulant therapy 0 04/17/2013 [...] on file documented as of this encounter Last Filed Vital Signs Vital Sign Reading Time Taken Comments Blood Pressure 130/68 05/20/2023 12:28 PM EDT Pulse 78 05/20/2023 12:28 PM EDT Temperature 36 C (96.8 F) 05/20/2023 12:28 PM EDT Respiratory Rate 18 05/20/2023 12:28 PM EDT Oxygen Saturation 95% 05/20/2023 12:28 PM EDT Inhaled Oxygen Concentration - - Weight - - Height - - Body Mass Index - - documented in this encounter Functional Status Functional Status Response [...] as of this encounter Progress Notes * Xiomara Chowdhury RN - 05/20/2023 12:13 PM EDT [facility] [employer]ic Visit Date: 05/20/2023 Time: 12:19 PM Name: Messi Londono : 1945 Current Concerns: Pt seen for initial RNCM visit Dx: Multiple myeloma, Afib, hx of c-diff, ESRD on dialysis, hyperlipidemia, Vit D deficiency, BPH, indwelling cordero catheter, s/p aortic valve replacement, s/p stem cell transplant, anxiety disorder,major depressive disorder Was hospitalized and then transferred to [facility] for further rehab Has lost over 38 lbs in the past year d/t illness reports he is slowly putting weight back on but appetite not the best but is improving Goes to dialysis T//Sat at [facility] Discussed having HH PT for strengthening but he refuses - reports he doesn't do his exercises at home as he should Cordero catheter managed by Dr. Osullivan at [facility] Urology Right upper chest port flushed today Sterile field maintained - Franco needle 20g 1 inch inserted without difficulty, + blood return - flushed with NSS and Heparin - deaccessed - pt tolerated well Vitamin B12 injection given in right deltoid Pt having difficulty getting out of the home Has automobile service station manager coming Tuesday for INR draw Pt request labs ordered by Dr. Brown be drawn by mobile lab also TT to Ken Pagan oven laborer, and she will draw all labs on Tuesday Physical Exam: BP 130/68 | Pulse 78 | Temp 36 C (96.8 F) | Resp 18 | SpO2 95% Pain 0 Physical Exam Constitutional: General: He is not in acute distress. Cardiovascular: Rate and Rhythm: Normal rate and regular rhythm. Pulses: Normal pulses. Heart sounds: Normal heart sounds. Comments: Mechanical click Pulmonary: Effort: Pulmonary effort is normal. Breath sounds: Normal breath sounds. Abdominal: General: Bowel sounds are normal. Palpations: Abdomen is soft. Skin: General: Skin is warm and dry. Coloration: Skin is pale. Neurological: Mental Status: He is alert and oriented to person, place, and time. Problems/Symptoms: Review of Systems Constitutional: Positive for fatigue. HENT: Negative. Eyes: Negative. Respiratory: Positive for cough (chronic, sometimes green) and shortness of breath (at baseline). Cardiovascular: Negative. Gastrointestinal: Negative. Genitourinary: Negative. Has cordero catheter Musculoskeletal: Positive for gait problem. Skin: Negative. Neurological: Positive for dizziness (usually after dialysis) and weakness. Psychiatric/Behavioral: Negative. Medication Reconciliation: (See medication list) Does patient take medications as ordered: Yes Patient Well Being: PHQ2/9: No questionnaires available. No change in living situation Denies recent falls [facility]-10 Completed this Visit: No. Routine visit and No falls since last visit Advanced Care Planning: No documentation, acp in progress. Patient's Goals of Care: Be able to walk freely Get back to driving Get my strength back Reinforcement/Education: Educated on home safety: Create a fall proof home Clear floors of clutter, loose wires, throw rugs, and cords. Make sure halls, stairways, and entrances are well lit. Install a nightlight in your bedroom, hallway and bathroom. Install grab bars or handrails in the bathroom and on stairs. Use a non-skid tub/shower mat. Avoid climbing on a chair; instead use a step stool with a high handrail. Keep sidewalks and steps in good repair Keep steps and sidewalks free of snow and ice. Using aids to support and prevent falls If you have poor balance or have fallen in the past, consider additional support such as a cane or walker. Use a cane with good support and that is the proper length for you. Use a walker if a cane doesnt provide enough support. Avoid medications that increase the risk of falling by causing dizziness, change in sensation or slowed reflexes. Certain medicines may cause falls - blood pressure pills, heart medicines, water pills, or sleepingpills. Be sure to understand each medicine that you are taking and any side effects that may occur. Improve your balance and flexibility with muscle strengthening exercises. Ask your health care provider for some exercises that will be right for you. Reinforced safety education and fall prevention. and Reinforced medication regimen. Timing., Dosing., and Purspose. Treatment/Plan: Continue meds as prescribed/reviewed Vitamin B12 injection monthly A-port flush every 4-6 weeks Fall precautions - use of assistive device at all times Dialysis at [facility] //[facility] Keep all appts as scheduled Mobile phlebotomy for INR and other lab work Home Interventions Provided: Home Intervention: Other; Eval, A-port flush, Vit B12 injection Reinforced current Plan of Care, including self-management and medication regimen Patient's 'Red Flags': Increased weakness Redness, swelling, problems at port site Fever/chills Patient Needs to Remember: Call [facility] at with any new or worsening health concerns or problems, red flag symptoms. Referrals Needed: Other none Follow Up: Is there cellular connectivity/connectivity in the home? Yes Does the patient have internet in the home? Yes Patient encouraged to call the intake phone number for all urgent but not emergent issues. Is the patient new to [facility] Home within the last 30 days? Yes, Is this a Transitions of Care visit? Yes, this is the 2nd visit or later, Yes cellular connectivity. Was their Readmission Risk Score less than 18%? Yes Does the patient have any active signs of an exacerbation? No Has the patient had any ED visits since being discharged? No, Please forward to Community Hot Water Heater Installer for telehealth scheduling, and indicate appropriate week of Transition of Care. Provider is in agreement with Plan of Care: Yes Scheduled to follow up with patient in 4-6 weeks. Xiomara Chowdhury RN 05/20/2023 12:19 PM documented in this encounter Plan of Treatment Upcoming Encounters Date Type Department Care Team (Late st Contact Info) Description 05/23/2023 7:00 AM EDT Laboratory Lab Mobile Phlebotomy [facility] [phone] [place] [phone] [facility] Mobile Home Draw [address] [place] [phone] 05/24/2023 6:00 AM EDT Anticoagulation Pharmacy Call Center [phone] [phone] [facility] [address] [facility] [place] [address] 05/30/2023 2:30 PM EDT Laboratory Laboratory [place] Lucas Macias [address] [id number] William Rucker [address] [address] 06/06/2023 2:30 PM EDT Office Visit Hematology/Oncology [facility] Macias [address] [phone] Jono Brown MD [address] [address] 06/27/2023 3:00 PM EDT [facility] Visit [facility], [facility] [address] [place] [address] Zachary Stevenson PA-C [address] [place] [address] 07/01/2023 2:30 PM EDT [facility] Visit [facility] [place], [facility] [address] [place] [address] Xiomara Chowdhury RN [address] [place] [address] Health Maintenance Due Date Last Done Comments [...] the patient have Health Care Power of Furniture Duster? No Care Teams Credit Director Relationship Specialty Start Date End Date Pro, Doug Castillo MD [address] [place] [facility] [place] [address] PCP - General Internal Medicine 11/30/13 documented as of this encounter
--- OUTSIDE RECORDS SUMMARY | 2023-05-22 14:37 | External Medical Summary | Summary of Care ---
Author Name Unknown Organization [facility] Address [address] [place] [address] Phone [phone] Care Team Providers Care Head Of Conservation Name Role Phone Pro, Doug Castillo MD Primary Care Provider +1- [phone] Reason for Visit * Reason Comments Dosage Adjustment Via Phone (anticoag Cl inic) Encounter Details Date Type Department Care Team (Latest Contact Info) Description 05/09/2023 5:30 PM EDT Anticoagulation Pharmacy, [facility] [address] [facility] [place] [address] Pharmacist2, [facility] [address] [facility] [place] [address] S/P aortic valve replacement with prosthetic valve* Allergies Active Allergy Reactions Criticality Noted Date Comments Torito Inhibitors 04/16/2013 Acetic Acid 04/04/2014 Severe mouth uclers documented as of this encounter (statuses as of 05/09/2023) Medications Medication Sig Dispensed Refills Start Date [...] evening. Take with meals. 0 Active Creon [id number] UNIT Oral Capsule Delayed Release Particles 3 [...] to dialysis. 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, with heart failure 05/04/2023 Secondary hyperparathyroidism of renal origin Hyperlipidemia 05/04/2023 Disease of pancreas, unspecified 05/04/2023 Indwelling Chandler catheter present 05/04/2023 Benign prostatic hyperplasia with lower urinary tract symptoms 04/18/2023 Major depressive disorder, single episode, unspe cified 04/18/2023 History of multiple myeloma 12/20/2018 Vitamin B12 deficiency 04/22/2017 Anxiety disorder 12/26/2013 A-fib 12/20/2013 Intestinal infection due to Clostridium difficil e 12/13/2013 Stem cells transplant status 12/06/2013 Vitamin D insufficiency 11/20/2013 Encounter for antineoplastic chemotherapy 2013 S/P aortic valve replacement with prosthetic matteo ve 04/17/2013 care home current use of anticoagulant therapy 0 04/17/2013 Overview: ICD-10 update of inactive term Anticoagulation management encounter 04/17/2013 Multiple myeloma 04/11/2013 documented as of this encounter (statuses as of 05/09/2023) Resolved Problems Problem Noted Date Diagnosed Date Resolved Date Tachycardia 12/16/2013 12/26/2013 Metabolic acidosis 12/15/2013 4 Electrolyte and fluid disorder 12/13/2013 12/26/2013 Shingles 09/20/2013 12/11/2013 documented as of this encounter (statuses as of 05/09/2023) Immunizations Name Administration Dates Next Due COVID-19 [...] as of this encounter Progress Notes * Jose Alberto Sevilla [facility] - 05/09/2023 11:41 AM EDT Images from the original note were not included. Medication Therapy Disease Management - Anticoagulation Patient: Messi Ethel Bry | : 1945 Subjective Contacts Type Contact Phone/Fax 05/09/2023 12:10 PM EDT Phone (Outgoing) Anabell Londono (Emergency Contact) [phone] Left Message Patient-Reported Symptoms: Objective Current Warfarin Dose As of 05/09/2023 Warfarin maintenance plan: 2.5 mg (5 mg x 0.5) every Tue, Tue, Maggi; 5 mg (5 mg x 1) all other days INR Result As of 05/09/2023 INR goal: 2.0-2.5 INR used for dosin.6 (05/09/2023) Assessment & Plan Warfarin Plan As of 05/09/2023 Full warfarin instructions: 05/08: 7.5 mg; Otherwise 2.5 mg every Mon, Fri; 5 mg all other days Next INR check: 05/16/2023 Repeat PT/INR in 1 week(s) Weekly dose: increased Additional Dosing Information: Description Dialysis Donovan Rebollar, Sat Jose Alberto Sevilla [facility] Clinical Pharmacist 05/09/2023, 11:41 AM documented in this encounter Plan of Treatment Upcoming Encounters Date Type Department Care Team (Late st Contact Info) Description 05/20/2023 12:30 PM EDT Home Visit [facility] [address] [facility] [address] [facility] [place] [address] Xiomara Chowdhury RN [address] [place] [address] 05/30/2023 2:30 PM EDT Laboratory Laboratory [facility] [place] [address] [facility] [place] [phone] [facility] [address] [facility] [place] [address] 06/06/2023 2:30 PM EDT Office Visit Hematology/Oncology [facility] [place] [address] [facility] [place] [phone] Jono Brown MD [address] [facility] [place] [address] Health Maintenance Due Date Last Done Comments [...] the patient have Health Care Power of Dressing Room Porter? No Care Teams Head Of Conservation Relationship Specialty Start Date End Date ProDoug MD [address] [place] [address] PCP - General Internal Medicine 11/30/13 documented as of this encounter
--- OUTSIDE RECORDS SUMMARY | 2023-05-22 14:37 | External Medical Summary | Summary of Care ---
Author Name Unknown Organization [facility] Address [address] [place] [address] Phone [phone] Care Team Providers Care Quarantine Officer Name Role Phone Doug Franklin MD Primary Care Provider +1- [phone] Encounter Details Date Type Department Care Team (Latest Contact Info) Description 05/04/2023 2:30 PM EDT Telemedicine [facility] at [place], [facility] [address] [place] [address] Zachary Stevenson PA-C [address] [facility] [place] [address] Fabiola Tapia, Community Health Senior Controls Analyst [address], [place] [id number] Multiple myeloma not having achieved remission (HCC)*; Hypertensive heart and renal disease, 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 Takes at night 0 Active METOPROLOL TARTRATE 50 MG PO TABSIndications:A trial fibrillation (HCC) 1 Tab Oral 2 times [...] Active Insulin Syringe 30G X 5/16" 1 MLIndications:Atr ial fibrillation, unspecified type (HCC) Inject under the skin every 12 hours. Use with heparin as directed before and after procedure 10 Each 0 11/09/2022 Active Warfarin Sodium 5 MG Oral Tablet (Coumadin)Indicat ions:S/P aortic valve replacement with prosthetic valve Take [...] evening. Take with meals. 0 Active Creon 24321-758559 UNIT Oral Capsule Delayed Release Particles 3 [...] to dialysis. 30 Tablet 0 05/04/2023 Active Ascorbic Acid (VITAMIN C) 100 MG Tablet Take 1 Tablet by mouth in the morning. 0 4 Discontinued hydrochlorothiazi de (HYDRODIURIL) 12.5 MG Tablet Take 1 Tablet by mouth in the morning. 0 08/11/2017 4 Discontinued Furosemide 80 MG Oral Tablet Take 1 Tablet by mouth in the morning. 0 4 Discontinued Calcitriol 0.25 MCG Oral Capsule (Rocaltrol) Take 1 Capsule by mouth in the morning. 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 current use of anticoagulant therapy 0 04/17/2013 [...] as of this encounter (statuses as of 05/11/2023) Resolved Problems Problem Noted Date Diagnosed Date Resolved Date Tachycardia 12/16/2013 12/26/2013 Metabolic acidosis 12/15/2013 4 Electrolyte and fluid disorder 12/13/2013 12/26/2013 Shingles 09/20/2013 12/11/2013 documented as of this encounter (statuses as of 05/11/2023) Immunizations Name Administration Dates Next Due COVID-19 [...] as of this encounter Progress Notes * Fabiola Tapia, Community Health Senior Controls Analyst - 05/04/2023 4:03 PM EDT Telemedicine visit: Yes Patient location: HOME. I was in a hospital or clinic location. After connecting through televideo,patient was verified with two unique identifiers. 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 Methods to assure confidentiality were taken. Patient acknowledged consent and understanding of pr ivacy and security of the Telemedicine visit. The patient agreed to participate. Community Health Senior Controls Analyst (DARLENE) documentation: DARLENE facilitated telehealth visit with provider Zachary Tapia- [facility] Support Services/[facility] [employer] [email or web address] * Zachary Stevenson PA-C - 05/04/2023 3:09 PM EDT Images from the original note were not included. 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,with heart failure (HCC) Assessment & Plan: Current CKD Stage: ESRD on dialysis "RED FLAG" symptoms: NO IDENTIFIED SYMPTOMS CKD Complications: Heart Failure HTN Anemia Secondary Hyperparathyroidism Additional Comments Continue dialysis tues, thurs, sat #3 Secondary hyperparathyroidism of renal origin (HCC) #4 Hyperlipidemia, unspecified hyperlipidemia type #5 Disease of pancreas, unspecified Overview: EGD, W/ENDOSCOPIC US 07/06/2022 multiple stones gallbladder/15mm muti-cystic lesion pancreatic head/22mm cystic lesion pancreas/biopsies show pseudocyst #6 Major depressive disorder with single episode, remission status unspecified Assessment & Plan: Mood stable on current dose remeron Other orders - Mirtazapine; Take 1 Tablet by mouth at bedtime. - ALPRAZolam; Takes 1 tablet on tues, thurs, sat prior to dialysis. Dispense: 30 Tablet; Refill: 0 Additional Medical Decision Making: Patient lives with spouse Spouse manages medications Recent admission to [facility] mar following by SNF stay, notes not available for review at this time Gradually making improvements back to baseline Aware to contact [facility] with any concerns Scheduled appointments in the next 60 days: Future Appointments-next 60 days Date/Time Provider Specialty Dept Phone 05/09/2023 9:50 AM [facility] Mobile Home Draw Laboratory Processing [phone] 05/20/2023 12:30 PM Xiomara Chowdhury RN [facility] [phone] 05/30/2023 2:30 PM [facility] [phone] 06/06/2023 2:30 PM (Arrive by 2:15 PM) Jono Brown MD Hematology Oncology [phone] A total of 20 minutes was spent face to face (via video-based telemedicine if designated as a telemedicine visit) Subjective Subjective Is this a Telemedicine Visit? Yes, Patient location: HOME. I was not in a hospital or clinic location. After connecting through televideo, patient was verified with two unique identifiers. 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 Methods to assure confidentiality were taken. Patient acknowledged consent and understanding of privacy and security of the Telemedicine visit. The patient agreed to participate. Reason For [facility] Visit: Enrollment Current Concerns: Messi Londono is a 78 year old male seen today for a [facility] provider visit. PMH includes multiple myeloma s/p stem cell transplant, afib, aortic valve replacement, ESRD on dialysis Today's concerns are: Denies concerns today Had recent admission at [facility] mar Reports from admission not available for review at this time, per patient sounds like possibly extended stay due to pneumonia and possibly sepsis Following admission, was discharged to [facility] for approx 2.5 weeks for rehab Returned to home last sat, 04/29 Lives with spouse, she manages all meds He reports feeling well today Continues to have some weakness Using walker to ambulate, did not use assistive device previously Not back to his baseline yet, but confident he will get there Continues dialysis tues, thurs, sat Denies SOB at rest, has some SETH Appetite improved States he lost some weight during hospital/snf stay due to disliking food reports patient with some constipation recently He was taking imodium, but has stopped and hopes constipation will resolve Additional Objective Objective There were no vitals filed for this visit. Last Weights: Wt Readings from Last 3 Encounters: 11/29/22 68 kg (150 lb) 08/03/22 69.6 kg (153 lb 6.4 oz) 07/06/22 70.8 kg (156 lb) Last BPs: BP Readings from Last 4 Encounters: 11/29/22 137/66 08/03/22 142/63 07/23/22 96/52 07/06/22 118/55 General: alert and no distress Neuro: alert & oriented x 3 with fluent speech Heart: regular rate & rhythm and +murmur Lungs: lungs clear to auscultation, no wheeze, no rales, no rhonchi Ext: Normal extremities without edema Lab Review: [facility] results XR chest 1V portable HISTORY: 78 years-old Male Sepsis acute sepsis COMPARISON: 08/26/2022 TECHNIQUE: AP view of the chest FINDINGS: Cardiac silhouette is enlarged. Median sternotomy. Right IJ Tidkoc-e-Qigb catheter and double lumen hemodialysis catheters appear to be in similar positioning. No pneumothorax. Layering pleural effusions with bibasilar consolidation. Pulmonary vascular congestion with interstitial coarsening. Healed chronic left-sided rib fracture. Degenerative changes of the shoulders and spine. IMPRESSION: 1. Cardiomegaly with pulmonary edema. 2. Layering pleural effusions with bibasilar consolidation which may represent atelectasis versus pneumonia. ACT 112: Negative or not required by law. The above report was generated using voice recognition software. It may contain grammatical, syntax or spelling errors. Electronically signed by: Archie Moore M.D. 04/01/2023 11:33 AM Dictated: 04/01/23 1128 Transcribed: 04/01/23 1128 VIDEO SWALLOW STUDY CLINICAL HISTORY: Aspiration. COMPARISON STUDY: No priors. Fluoroscopy time: 1.38 minutes. Ka,r: 4.73 mGy FINDINGS: Fluoroscopic guidance was provided to the Department of speech pathology in performing a video swallow study. The patient consumed barium impregnated pudding, cracker with paste, nectar thick liquids, and thin barium while the swallowing mechanism was observed in real-time. There is laryngeal penetration and silent aspiration seen with thin barium. No penetration or aspiration was seen with the remaining sampled textures. IMPRESSION: 1. Silent aspiration was seen with thin barium. 2. No penetration or aspiration was clearly seen with the additional sampled textures. 3. See dedicated speech pathology report for detailed findings and recommendations. Dictated: 04/05/2023 10:50 AM Transcribed: 04/05/2023 11:06 AM Chin [id number] [email or web address] Electronically signed by: Cuauhtemoc Fuchs M.D. 04/05/2023 11:07 AM Dictated: 04/05/23 1050 Transcribed: 04/05/23 1106 I have reviewed the following results: Imaging results in the last 6 months No imaging results in the last 6 months BMP results Recent Labs Units 05/02/23 1406 11/12/22 1430 09/02/22 1521 06/21/22 1453 SODIUM - [facility] mmol/L -- 140 137 134* POTASSIUM - [facility] mmol/L 3.3* 4.1 3.1* 3.7 CHLORIDE - [facility] mmol/L -- 97* 96* 97* CO2 - [facility] mmol/L -- 24 27 17* CREATININE - [facility] mg/dL -- 4.4* 2.0* 4.0* BUN - [facility] mg/dL -- 15 7 83* Lipid panel results Recent Labs Units 04/15/22 1450 05/12/21 1346 CHOLESTEROL - [facility] mg/dL 125 137 LDL CHOLESTEROL (CALCULATED) - [facility] mg/dL 54 75 HDL CHOLESTEROL - [facility] mg/dL 43 39* TRIGLYCERIDES - [facility] mg/dL 138 116 CBC results Recent Labs Units 11/12/22 1430 09/02/22 1521 06/21/22 1453 WBC K/uL 5.83 3.52* 6.28 HGB g/dL 10.6* 10.1* 9.7* HCT % 33.6* 31.9* 29.4* PLT K/uL 122* 117* 135* HbA1c results Recent Labs Units 04/15/22 1450 05/12/21 1346 HEMOGLOBIN A1C - [facility] % 6.4* 7.2* TSH results Recent Labs Units 04/15/22 1450 TSH - [facility] uIU/mL 1.85 Medication Review "Bottles Out" medication review performed today and medication list in EMR updated Zachary Stevenson PA-C 3:09 PM *Communication sent to PCP (via [facility] if [facility]), [facility]/Population Health Care Team members,relevant Specialty Care Physicians* documented in this encounter Miscellaneous Notes * Assessment & Plan Note - Zachary Stevenson PA-C - 05/11/2023 10:33 AM EDT Associated Problem(s): Major depressive disorder, single episode, unspecified Mood stable on current dose remeron * Assessment & Plan Note - Zachary Stevenson PA-C - 05/11/2023 9:48 AM EDT Associated Problem(s): Hypertensive heart and renal disease, 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, with heart failure (HCC) Current CKD Stage: ESRD on dialysis "RED FLAG" symptoms: NO IDENTIFIED SYMPTOMS CKD Complications: Heart Failure HTN Anemia Secondary Hyperparathyroidism Additional Comments Continue dialysis enriquetabartav, brent * Assessment & Plan Note - Zachary Stevenson PA-C - 05/11/2023 9:46 AM EDT Associated Problem(s): Multiple myeloma (HCC) Continues to folllow with hem/onc Labs have been stable documented in this encounter Plan of Treatment Upcoming Encounters Date Type Department Care Team (Late st Contact Info) Description 05/16/2023 10:00 AM EDT Laboratory Lab Mobile Phlebotomy [facility] [address] [place] [address] [facility] Mobile Home Draw [address] [place] [address] 05/20/2023 12:30 PM EDT Home Visit ising at [facility] [address] [facility] [place] [address] Xiomara Chowdhury, RN 132 [facility] [place] [address] 05/30/2023 2:30 PM EDT Laboratory Laboratory [place] [facility] [address] [place] [phone] [facility] [address] [place] [address] 06/06/2023 2:30 PM EDT Office Visit Hematology/Oncology [facility] [address], [place] [phone] Jono Brown MD 200 [facility] [place] [address] 06/27/2023 3:00 PM EDT [facility] Visit [facility], [facility] [address] [place] [address] Zachary Stevenson PA-C [address] [place] [address] Health Maintenance Due Date Last Done Comments [...] as of this encounter Visit Diagnoses Diagnosis Multiple myeloma not having achieved remission (HCC)- Primary Multiple myeloma, without mention of having achieved remission Hypertensive heart and renal disease, 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 No Care Teams Quarantine Officer Relationship Specialty Start Date End Date Pro, Doug Castillo MD [address] [facility] [place] [address] PCP - General Internal Medicine 11/30/13 documented as of this encounter
--- OUTSIDE RECORDS SUMMARY | 2023-05-22 14:37 | External Medical Summary | Summary of Care ---
Author Name Unknown Organization [facility] Address [address] [place] [address] Phone [phone] Care Team Providers Care Keyboard Teacher Name Role Phone Doug Franklin MD Primary Care Provider +1- [phone] Reason for Visit * Reason Onset Date Comments Medication Refill 05/13/2023 Encounter Details Date Type Department Care Team (Late st Contact Info) Description 05/13/2023 Refill Hematology/Oncology [facility] [address] [place] [phone] Jono Brown MD [address] [place] [address] Vitamin B12 deficiency* Allergies Active Allergy Reactions Criticality Noted Date Comments Torito Inhibitors 04/16/2013 Acetic Acid 04/04/2014 Severe mouth uclers documented as of this encounter (statuses as of 05/16/2023) Medications Medication Sig Dispensed Refills Start Date [...] evening. Take with meals. 0 Active Creon [id number] UNIT Oral Capsule Delayed Release Particles 3 [...] Tablet (Xanax) Takes 1 tablet on , tue prior to dialysis. 30 Tablet 0 05/04/2023 Active Cyanocobalamin 1000 MCG/ML Injection Solution (Cyanocobalamin)Flavia cations:Vitamin B12 deficiency Inject 1,000 mcg into a large muscle every 30 days. 3 mL 1 05/16/2023 Active Syringe 20G X 1" 3 MLIndications:Vitami n B12 deficiency Use for B12 injection. 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, with heart failure 05/04/2023 Last Assessment & Plan: Current CKD Stage: ESRD on dialysis "RED FLAG" symptoms: NO IDENTIFIED SYMPTOMS CKD Complications: Heart Failure HTN Anemia Secondary Hyperparathyroidism Additional Comments Continue dialysis , tue Secondary hyperparathyroidism of renal origin Hyperlipidemia 05/04/2023 [...] as of this encounter (statuses as of 05/16/2023) Resolved Problems Problem Noted Date Diagnosed Date Resolved Date Tachycardia 12/16/2013 12/26/2013 Metabolic acidosis 12/15/2013 4 Electrolyte and fluid disorder 12/13/2013 12/26/2013 Shingles 09/20/2013 12/11/2013 documented as of this encounter (statuses as of 05/16/2023) Immunizations Name Administration Dates Next Due COVID-19 [...] encounter Miscellaneous Notes * Telephone Encounter - Benedicto Frey MD - 05/16/2023 11:07 AM EDTSigned Prescriptions: Disp Refills Cyanocobalamin 1000 MCG/ML Injection Solut*3 mL 1 Sig: Inject 1,000 mcg into a large muscle every 30 days.Authorizing Provider: BRANDAN JAIN Syringe 20G X 1" 3 ML 50 Each0 Sig: Use for B12 injection.Authorizing Provider: BRANDAN JAIN * Telephone Encounter - Meron Mcdermott OSA - 05/16/2023 9:20 AM EDT Anabell is returning call to Aayush Please call her back at [phone] * Telephone Encounter - Aayush Funk RN - 05/13/2023 4:10 PM EDT Pt would like to have B12 done at home with [facility]. Pended B12 and syringes. documented in this encounter Plan of Treatment Upcoming Encounters Date Type Department Care Team (Late st Contact Info) Description 05/20/2023 12:30 PM EDT [facility] Visit [facility], [facility] [address] [place] [address] Xiomara Chowdhury, RN [address] [place] [address] 05/30/2023 2:30 PM EDT Laboratory Laboratory [facility] [address] [facility] [place] [phone] [facility] [address] [facility] [place] [address] 06/06/2023 2:30 PM EDT Office Visit Hematology/Oncology [facility] [address] [facility] [place] [phone] Jono Brown MD [address] [facility] [place] [address] 06/06/2023 3:00 PM EDT Immunization/Injecti on Hematology/Oncology Treatment, [place] [address] [facility] [address] [place] [phone] Nurse, Med 4 [address] [facility] [place] [address] 06/07/2023 8:30 AM EDT [facility] Visit [facility], [facility] [address] [place] [address] Xiomara Chowdhury, RN [address] [place] [address] 06/27/2023 3:00 PM EDT [facility] Visit [facility], [facility] [address] [place] [address] Zachary Stevenson PA-C [address] [place] [address] Health Maintenance Due Date Last Done Comments [...] Vitamin B12 deficiency- Primary Other B-complex deficiencies documented in this encounter Advance Directives Latest [...] the patient have Health Care Power of Plant Protection Officer? No Care Teams Keyboard Teacher Relationship Specialty Start Date End Date Pro, Doug Castillo MD [address] [facility] [address] PCP - General Internal Medicine 11/30/13 documented as of this encounter
--- OUTSIDE RECORDS SUMMARY | 2023-05-22 14:37 | External Medical Summary | Summary of Care ---
Author Name Unknown Organization [facility] Address [address] [place] [address] Phone [phone] Care Team Providers Care Physician Aide Name Role Phone Doug Franklin MD Primary Care Provider +1- [phone] Reason for Visit * Reason Onset Date Comments Medication Refill 05/13/2023 Encounter Details Date Type Department Care Team (Late st Contact Info) Description 05/13/2023 Refill Hematology/Oncology [facility] [address] [place] [phone] Jono Brown MD [address] [place] [address] Vitamin B12 deficiency* Allergies Active Allergy Reactions [...] evening. Take with meals. 0 Active Creon [id number] UNIT Oral Capsule Delayed Release Particles 3 [...] 05/04/2023 Active Cyanocobalamin 1000 MCG/ML Injection Solution (Cyanocobalamin)I ndications:Vitami n B12 deficiency Inject 1,000 mcg into a large muscle every 30 days. 3 mL 1 05/16/2023 Active Syringe 20G X 1" 3 MLIndications:Vit rhodes B12 deficiency Use for B12 injection. 50 Each 0 05/16/2023 4 Discontinued documented as of this encounter [...] Secondary Hyperparathyroidism Additional Comments Continue dialysis , , sat Secondary hyperparathyroidism of renal origin Hyperlipidemia [...] valve replacement with prosthetic matteo ve 04/17/2013 [facility] current use of anticoagulant therapy 0 04/17/2013 [...] encounter Miscellaneous Notes * Telephone Encounter - Aayush Funk RN - 05/16/2023 1:04 PM EDTPending Prescriptions: Disp Refills BD Luer-Robert Syringe 25G X 1" 3 ML (Syringe*50 Each0 Sig: Use with b12 injection.Signed Prescriptions: Disp Refills Cyanocobalamin 1000 MCG/ML Injection Solut*3 mL 1 Sig: Inject 1,000 mcg into a large muscle every 30 days.Authorizing Provider: BRANDAN JAIN- * Addendum Note - Aayush Funk RN - 05/16/2023 1:04 PM EDTAddended by: AAYUSH FUNK on: 05/16/2023 01:04 PM Modules accepted: Orders * Telephone Encounter - Aayush Funk RN - 05/16/2023 1:02 PM EDT Pended wrong syringes, pended new syringes. * Telephone Encounter - Benedicto Frey MD [...] to Aayush Please call her back at [phone] * Telephone Encounter - Aayush Funk RN - 05/13/2023 4:10 PM EDT Pt would like to have B12 done at home with [facility]. Pended B12 and syringes. documented in this encounter Plan of Treatment Upcoming Encounters Date Type Department Care Team (Late st Contact Info) Description 05/20/2023 12:30 PM EDT [facility], [facility] [address] [place] [address] Xiomara Chowdhury, RN [address] [place] [address] 05/30/2023 2:30 PM EDT Laboratory Laboratory [facility] [address] [place] [address] [place] [phone] [place], Lab Scenery [address] [place] [address] 06/06/2023 2:30 PM EDT Office Visit Hematology/Oncology [facility] [address] [place], [place] [phone] Jono Brown MD 200 [facility] [place] [address] 06/06/2023 3:00 PM EDT Immunization/Injecti on Hematology/Oncology Treatment, [place] 200 [facility], [place] [phone] Nurse, Med 200 [facility] [place], [place] [address] 06/07/2023 8:30 AM EDT [facility] Visit [facility], [facility] [address] [place] [address] Xiomara Chowdhury RN [address] [place] [address] 06/27/2023 3:00 PM EDT [facility] Visit [facility], [facility] [address] [place] [address] Zachary Stevenson PA-C [address] [place] [address] Health Maintenance Due Date Last Done Comments [...] the patient have Health Care Power of Wet Finisher Wool? No Care Teams Physician Aide Relationship Specialty Start Date End Date Pro, Doug Castillo MD [address] [place] [address] PCP - General Internal Medicine 11/30/13 documented as of this encounter
--- OUTSIDE RECORDS SUMMARY | 2023-05-22 14:37 | External Medical Summary | Summary of Care ---
Author Name Unknown Organization [facility] Address [address] [place] [address] Phone [phone] Care Team Providers Care Open Tenter Operator Name Role Phone ProDoug MD Primary Care Provider +1- [phone] Encounter Details Date Type Department Care Team (Late st Contact Info) Description 04/27/2023 Telephone Hematology/Oncology Treatment, [place] [address] [place] [address] Jono Brown MD [address] [place] [address] Allergies Active Allergy Reactions Criticality Noted Date Comments Torito Inhibitors 04/16/2013 Acetic Acid 04/04/2014 Severe mouth uclers documented as of this encounter (statuses as of 05/13/2023) Medications Medication Sig Dispensed Refills Start Date [...] evening. Take with meals. 0 Active Creon 27914-470681 UNIT Oral Capsule Delayed Release Particles 3 times a day. 0 04/29/2022 Active Loperamide HCl 2 MG Oral Capsule (Imodium) Take 1 Capsule by mouth 4 times a day as needed. 0 04/08/2022 Active Cholecalciferol 50 MCG (2000 UT) Oral Capsule 2 times a day. 0 11/15/2022 Active Ascorbic Acid (VITAMIN C) 100 MG [...] as of this encounter (statuses as of 05/13/2023) Active Problems Problem Noted Date Diagnosed Date [...] valve replacement with prosthetic matteo ve 04/17/2013 snf current use of anticoagulant therapy 0 04/17/2013 [...] as of this encounter (statuses as of 05/13/2023) Resolved Problems Problem Noted Date Diagnosed Date Resolved Date Tachycardia 12/16/2013 12/26/2013 Metabolic acidosis 12/15/2013 4 Electrolyte and fluid disorder 12/13/2013 12/26/2013 Shingles 09/20/2013 12/11/2013 documented as of this encounter (statuses as of 05/13/2023) Immunizations Name Administration Dates Next Due COVID-19 [...] Encounter - Aayush Funk RN - 05/13/2023 3:43 PM EDT TT sent to Xiomara Chowdhury RN with [facility] to see if this is something that can be done for the patient. * Telephone Encounter - Mel Parikh OSA - 05/13/2023 3:30 PM EDT Anabell called in asking for a callback from a nurse to see if the home nurses can do the port flush and b12 injection? If not, she is wanting to come in on Tuesday to have it done due to he is hard to get around due to walker. If she needs to come they can do Tuesday at 11:00 am.Please call to discuss. * Telephone Encounter - Bernadine Kraft OSA - 05/13/2023 9:55 AM EDT Added to chart * Telephone Encounter - Akanksha Najera RN - 05/13/2023 7:32 AM EDT Please add this for after patient sees Dr Brown 06/05- if he ends up calling, can be moved up to sooner, but this way he will be on the schedule. * Telephone Encounter - Fabiola Bond, MED ASSIST - 05/03/2023 9:23 AM EDT Called [facility] for patient. Sent letter. * Telephone Encounter - Fabiola Bond MED ASSIST - 04/29/2023 8:56 AM EST Called [facility] for patient. * Telephone Encounter - Fabiola Bond MED ASSIST - 04/28/2023 9:09 AM EST Called and lmom for patient. * Telephone Encounter - Nadia Justice RN - 04/27/2023 3:52 PM EST Patient did not show for port flush/vitamin B12 appointment. Scheduling: Please reach out to patient to reschedule. NS: Please update beacon. documented in this encounter Plan of Treatment Upcoming Encounters Date Type Department Care Team (Late st Contact Info) Description 05/16/2023 10:00 AM EDT Laboratory Lab [place]bot[facility] [address] [place] [address] [facility] [facility] Mobile Home Draw [address] [place] [address] 05/20/2023 12:30 PM EDT [facility] [place], [facility] [address] [address] Xiomara Chowdhury, RN [address] [address] 05/30/2023 2:30 PM EDT Laboratory Laboratory Nadia Rucker [place] 200 [facility] [phone] [address] [facility] [place] [address] 06/06/2023 2:30 PM EDT Office Visit Hematology/Oncology [facility] [place] [address] [place] [phone] Jono Brown MD 200 [facility] [place] [place] [address] 06/06/2023 3:00 PM EDT Immunization/Injecti on Hematology/Oncology Treatment, [place] [facility] [phone] Nurse, Med 200 [facility] [place] [address] 06/27/2023 3:00 PM EDT [facility] [address] [place] [address] Zachary Stevenson PA-C [address] [place] [address] Health Maintenance Due Date Last Done Comments [...] the patient have Health Care Power of Superintendent [employer] Services? No Care Teams Open Tenter Operator Relationship Specialty Start Date End Date Pro, Doug Castillo MD [address] [place] [address] PCP - General Internal Medicine 11/30/13 documented as of this encounter
--- OUTSIDE RECORDS SUMMARY | 2023-05-22 14:37 | External Medical Summary | Summary of Care ---
Author Name Unknown Organization [facility] Address [address] [place] [address] Phone [phone] Care Team Providers Care Eligibility Supervisor Name Role Phone Pro, Doug Castillo MD Primary Care Provider +1- [phone] Reason for Visit * Reason Comments Dosage Adjustment Via Phone (anticoag Cl inic) Encounter Details Date Type Department Care Team (Latest Contact Info) Description 05/16/2023 6:00 PM EDT Anticoagulation Pharmacy Call Center [address] [place] [address] [facility] [address] [place] [id number] S/P aortic valve replacement with prosthetic valve* [...] evening. Take with meals. 0 Active Creon [id number] UNIT Oral Capsule Delayed Release Particles 3 [...] Tablet (Xanax) Takes 1 tablet on , sat prior to dialysis. 30 Tablet 0 05/04/2023 Active Cyanocobalamin 1000 MCG/ML Injection Solution (Cyanocobalamin)Flavia cations:Vitamin B12 deficiency Inject 1,000 mcg into a large muscle every 30 days. 3 mL 1 05/16/2023 Active BD Luer-Robert Syringe 25G X 1" 3 ML (Syringe/Needle (Disp))Indications:V itamin B12 deficiency Use with b12 injection. 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 PT/INR results, Coumadin dose instructions, and next PT/INR date communicated as noted by Pharmacist: Yes LUIS GOMEZ 05/16/2023, 2:21 PM * Fabiola Ambriz [facility] - 05/16/2023 2:07 PM EDT Images from the original note were not included. Coumadin Clinic (region specific) Objective Current Warfarin Dose As of 05/16/2023 Warfarin maintenance plan: 2.5 mg (5 mg x 0.5) every Mon, Fri; 5 mg (5 mg x 1) all other days INR Result As of 05/16/2023 INR goal: 2.0-2.5 INR used for dosin.2 (05/16/2023) Assessment & Plan Warfarin Plan As of 05/16/2023 Full warfarin instructions: 05/15: 5 mg; Otherwise 2.5 mg every Mon; 5 mg all other days Next INR check: 05/23/2023 Repeat PT/INR in 1 week(s) Weekly dose: increased Additional Dosing Information: Description GML Dialysis Av Rebollar, Sat Tech to contact patient with dose instructions as noted. Fabiola Ambriz RPh 05/16/2023, 2:07 PM documented in this encounter Plan of Treatment Upcoming Encounters Date Type Department Care Team (Late st Contact Info) Description 05/20/2023 12:30 PM EDT [facility] [place] [address] Xiomara Chowdhury RN [address] [place] [address] 05/23/2023 7:00 AM EDT Laboratory Lab Mobile Phlebotomy [facility] [address] [place] [address] [facility], [facility] Mobile Home Draw [address] [place] [address] 05/30/2023 2:30 PM EDT Laboratory Laboratory [facility] [place] 200 [facility] [place] [phone] [place], Lab [facility] [address] [address] 06/06/2023 2:30 PM EDT Office Visit Hematology/Oncology [facility] [place] 200 [facility] [place] [phone] Jono Brown MD 200 [facility] [place] [address] 06/06/2023 3:00 PM EDT Immunization/Injecti on Hematology/Oncology Treatment, [place] [address] [place] [phone] Nurse, Med [address] [address] 06/07/2023 8:30 AM EDT [facility] Visit [facility] [place], [facility] [address] [place] [address] Xiomara Chowdhury, RN [address] [place] [address] 06/27/2023 3:00 PM EDT [facility], [facility] [address] [place] [address] Zachary Stevenson PA-C [address] [place] [address] Health Maintenance Due Date Last Done Comments [...] the patient have Health Care Power of Marketing Program Coordinator? No Care Teams Eligibility Supervisor Relationship Specialty Start Date End Date ProDoug MD [address] [place] [address] PCP - General Internal Medicine 11/30/13 documented as of this encounter
--- OUTSIDE RECORDS SUMMARY | 2023-05-22 14:37 | External Medical Summary | Summary of Care ---
Author Name Unknown Organization [facility] Address [address] [place] [address] Phone [phone] Care Team Providers Care Workers Compensation Claims Adjuster Name Role Phone ProDoug MD Primary Care Provider +1- [phone] Encounter Details Date Type Department Care Team (Late st Contact Info) Description 04/27/2023 Telephone Hematology/Oncology Treatment, [place] [address] [place] [address] Jono Brown MD [address] [place] [address] Allergies Active Allergy Reactions Criticality Noted Date [...] evening. Take with meals. 0 Active Creon 78494-360498 UNIT Oral Capsule Delayed Release Particles 3 [...] valve replacement with prosthetic matteo ve 04/17/2013 assisted current use of anticoagulant therapy 0 04/17/2013 [...] the schedule. * Telephone Encounter - Fabiola Bond MED ASSIST - 05/03/2023 9:23 AM EDT [...] 10:00 AM EDT Laboratory Lab Mobile Phlebotomy [facility] [address] [place] [address] [facility] Mobile Home Draw [address] [place] [address] 05/20/2023 12:30 PM EDT [facility] 132 [facility] [place] [address] Xiomara Chowdhury, RN 132 [facility] [place] [address] 05/30/2023 2:30 PM EDT Laboratory Laboratory [facility] [address] [place] [phone] [place], [facility] 200 [facility] [address] 06/06/2023 2:30 PM EDT Office Visit Hematology/Oncology [facility] [address] [place] [phone] Jono Brown MD [address] [place] [address] 06/27/2023 3:00 PM EDT [facility] [address] [place] [address] Zachary Stevenson PA-C 132 [facility] [place] [address] Health Maintenance Due Date Last Done Comments [...] the patient have Health Care Power of Content Development Manager? No Care Teams Workers Compensation Claims Adjuster Relationship Specialty Start Date End Date Pro, Doug Castillo MD [address] [place] [address] PCP - General Internal Medicine 11/30/13 documented as of this encounter
--- OUTSIDE RECORDS SUMMARY | 2023-05-22 14:37 | External Medical Summary | Summary of Care ---
Author Name Unknown Organization [facility] Address [address] [place] [address] Phone [phone] Care Team Providers Care Welt Rander Name Role Phone ProDoug MD Primary Care Provider +1- [phone] Encounter Details Date Type Department Care Team (Late st Contact Info) Description 04/27/2023 Telephone Hematology/Oncology Treatment, [place] [address] [place] [address] Jono Brown MD [address] [place] [address] Allergies Active Allergy Reactions Criticality Noted Date [...] evening. Take with meals. 0 Active Creon 35026-504653 UNIT Oral Capsule Delayed Release Particles 3 [...] encounter Miscellaneous Notes * Telephone Encounter - Mel Parikh OSA [...] 10:00 AM EDT Laboratory Lab Mobile Phlebotomy [facility] [place] [place] [address] [place] [address] [facility] Mobile Home Draw [address] [place] [address] 05/20/2023 12:30 PM EDT Home Visit [facility] 132 [place] [address] Xiomara Chowdhury, RN [facility] [address] 05/30/2023 2:30 PM EDT Laboratory Laboratory [place] [facility] [address] [phone] [place] [address] 06/06/2023 2:30 PM EDT Office Visit Hematology/Oncology [place] [facility] [address] [phone] Jono Brown MD [address] [place] [address] 06/06/2023 3:00 PM EDT Immunization/Injecti on Hematology/Oncology Treatment, [place] [address] [place] [phone] Nurse, Med 200 [facility] [place] [address] 06/27/2023 3:00 PM EDT [facility], [facility] [address] [place] [address] Zachary Stevenson PA-C [address] [place] [address] Health Maintenance Due Date Last Done Comments [...] the patient have Health Care Power of Airplane Mechanic? No Care Teams Welt Rander Relationship Specialty Start Date End Date Doug Franklin MD [address] [place] [address] PCP - General Internal Medicine 11/30/13 documented as of this encounter
--- OUTSIDE RECORDS SUMMARY | 2023-05-22 14:37 | External Medical Summary | Summary of Care ---
Author Name Unknown Organization [facility] Address [address] [place] [address] Phone [phone] Care Team Providers Care Lead Former Name Role Phone Pro, Doug Castillo MD Primary Care Provider +1- [phone] Reason for Visit * Reason Onset Date Comments Advice 05/09/2023 Encounter Details Date Type Department Care Team (Late st Contact Info) Description 05/09/2023 Telephone Pharmacy Call Center [address] [facility] [place] [address] Pharmacist2, [facility] [address] [place] [address] Advice Allergies Active Allergy Reactions Criticality Noted Date [...] evening. Take with meals. 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 GML to come out on 05/16/23 for next INR. Jose Alberto Sevilla, Hailey, BCACP, [facility] Clinical Pharmacist 05/09/2023, 1:28 PM * Telephone Encounter - Clover Larson PHARM Tech - 05/09/2023 12:57 PM EDT Caller's name: anabell Preferred call back number(OFFICE NUMBER FOR HH): [phone] Reason for call: pt spouse calling brandi states she is returning call advised message left and she was like not he wants to know if we can use gml asked if they can she said yes, and I said ok she mumbled something like ok why can t I ever talk to him I always get thru if I kill my or something? Thank you, Clover Larson Incident Analyst [facility] ([facility]) (Formerly Telepharmacy) 05/09/2023,12:57 PM * Telephone Encounter - Sol Buckley pie cutter - 05/09/2023 12:49 PM EDT Caller's name: Anabell Preferred call back number(OFFICE NUMBER FOR HH): Reason for call: Requesting to speak to Scott Phillip [facility]. Anabell was very angry when I first answered the phone. She was upset that I asked for any detailsto include in the message. She just kept saying sarcastic comments, as to try to start an argument or something. I explained we ask for any details to help the pharmacist to understand the request, before they call the pts back. I lost power during our conversation. Sol Buckley Foil Stamp Operator [facility] ([facility]PS) (Formerly Telepharmacy) 05/09/2023, 12:50 PM documented in this encounter Plan of Treatment Upcoming Encounters Date Type Department Care Team (Late st Contact Info) Description 05/09/2023 5:30 PM EDT Anticoagulation Pharmacy, [place] Lucas Macias [address] [address] Pharmacist2, [facility] [address] [address] S/P aortic valve replacement with prosthetic valve* 05/20/2023 12:30 PM EDT [facility], [facility] [address] [place] [address] Xiomara Chowdhury, RN [address] [place] [address] 05/30/2023 2:30 PM EDT Laboratory Laboratory [facility] [place] [address] [place] [phone] [place] [facility] 200 [facility] [place] [address] 06/06/2023 2:30 PM EDT Office Visit Hematology/Oncology [facility] [place] 200 [facility] [place] [phone] Jono Brown MD [address] [place] [address] Health Maintenance Due Date Last Done Comments [...] the patient have Health Care Power of Horse Race Starter? No Care Teams Lead Former Relationship Specialty Start Date End Date Pro, Doug Castillo MD [address] [place] [address] PCP - General Internal Medicine 11/30/13 documented as of this encounter
--- OUTSIDE RECORDS SUMMARY | 2023-05-22 14:37 | External Medical Summary ---
Author Name Unknown Address Unknown Organization [facility] [place] [address] Laboratory Report Ordering Provider Test Date Status KOFFI GIRALDO V 05/09/2023 09:29:00 Final Warfarin Therapy
INR: 2 .0-3.0 conventional anticoagulation
INR: 2.5- 3.5 high intensity anticoagulation Observation Date Value Abnormality Reference (Units ) Status PT 05/09/2023 09:29:00 19.2 Above high normal 11 .6-15.2 (seconds) Final INR 05/09/2023 09:29:00 1.6 Above high normal 0. 8-1.2 Final Performing Location [facility] - [address] [place] [address]
--- OUTSIDE RECORDS SUMMARY | 2023-05-22 14:37 | External Medical Summary | Summary of Care ---
Author Name Unknown Organization [facility] Address [address] [place] [address] Phone [phone] Care Team Providers Care Practice Manager Name Role Phone Pro, Doug Castillo MD Primary Care Provider +1- [phone] Reason for Visit * Reason Onset Date Comments Med Request 05/16/2023 Encounter Details Date Type Department Care Team (Late st Contact Info) Description 05/16/2023 Telephone Pharmacy Call Center [address] [place] [address] [facility] 58 [address] [facility] [place] [address] Med Request Allergies Active Allergy Reactions Criticality Noted Date [...] evening. Take with meals. 0 Active Creon [id number] UNIT Oral Capsule Delayed Release Particles 3 [...] valve replacement with prosthetic matteo ve 04/17/2013 halfway current use of anticoagulant therapy 0 04/17/2013 [...] encounter Miscellaneous Notes * Telephone Encounter - Clover Larson PHARM Tech - 05/16/2023 3:05 PM EDT Caller's name: anabell [facility] call back number(OFFICE NUMBER FOR ): [phone] Reason for call: asking if 5 mg warfarin can be called in it brandi be easier Thank you, Clover Larson Patient Care Associate [facility] ([facility]PS) (Formerly Telepharmacy) 05/16/2023,3:06 PM documented in this encounter Plan of Treatment Upcoming Encounters Date Type Department Care Team (Latest Contact Info) Description 05/16/2023 6:00 PM EDT Anticoagulation Pharmacy Call Center [address] [place] [address] [facility], [facility] 58 60 [facility] [place] [address] S/P aortic valve replacement with prosthetic valve* 05/20/2023 12:30 PM EDT Home Visit [facility] [address] [address] Xiomara Chowdhury RN [address] [place] [address] 05/23/2023 7:00 AM EDT Laboratory Lab Mobile Phlebotomy [facility] [address] [facility] [place] [address] [facility], Gml Mobile Home Draw [address] [place] [place] [address] 05/24/2023 6:00 AM EDT Anticoagulation Pharmacy Call Center WB [address] [place] [address] [facility], [facility] [address] [facility] [address] 05/30/2023 2:30 PM EDT Laboratory Laboratory [facility] [place] 200 [facility] [place] [phone] [facility] 200 [facility] [place] [address] 06/06/2023 2:30 PM EDT Office Visit Hematology/Oncolo gy [facility] [place] 200 [facility] [place] [phone] Jono Brown MD 200 [facility] [place] [address] 06/06/2023 3:00 PM EDT Immunization/Injection [facility] 200 [facility] [phone] Nurse, Med 200 [facility] [place] [address] 06/07/2023 8:30 AM EDT [facility] Visit [facility] [place], [facility] 132 [facility] [place] [address] Xiomara Chowdhury, RN [address] [facility] [place] [address] 06/27/2023 3:00 PM EDT [facility], [facility] 132 [facility] [address] Zachray Stevenson PA-C [address] [place] [address] Health Maintenance Due Date Last Done Comments [...] the patient have Health Care Power of Jet Handler? No Care Teams Practice Manager Relationship Specialty Start Date End Date Pro, Doug Castillo MD [address] [facility], [place] [address] PCP - General Internal Medicine 11/30/13 documented as of this encounter
--- OUTSIDE RECORDS SUMMARY | 2023-05-22 14:37 | External Medical Summary | Summary of Care ---
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 [facility] Is the therapy new or a continuation? New Comments Port Flushes every 6 weeks. Encounter Details Date Type Department Care Team (Late st Contact Info) Description 04/27/2023 Telephone Hematology/Oncology Treatment, [place] [address] [facility] [place] [address] [facility]o Brown [facility] [address] Allergies Active Allergy Reactions Criticality Noted Date [...] evening. Take with meals. 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 Pended b12 and syringes to provider in separate encounter. [facility] referral placed for port flushes. Called Anabell back to inform. No answer, LMOM with return #. * Telephone Encounter - Aayush Wyatt RN - 05/13/2023 3:43 PM EDT TT sent to Xiomara Chowdhury RN with [facility] to see if this is something that can be done for the patient. * Telephone Encounter - Mel Parikh OSA - 05/13/2023 3:30 PM EDT Anbaell called in asking for a callback from [...] 10:00 AM EDT Laboratory Lab [place] [address] [place] [address] [facility], [facility] Mobile Home Draw [address] [place] [address] 05/20/2023 12:30 PM EDT Home Visit [facility] [place] [address] [place] [address] Xiomara Chowdhury, RN [address] [place] [address] 05/30/2023 2:30 PM EDT Laboratory Laboratory [facility] [place] [address] [place] [phone] [place], Lab [facility] [address] [place] [place] [address] 06/06/2023 2:30 PM EDT Office Visit Hematology/Oncology [facility] [place] [address] [place] [address] [phone] Jono Brown MD [address] [place] [address] 06/06/2023 3:00 PM EDT Immunization/Injecti on Hematology/Oncology Treatment, [place] [address] [place] [address] [facility] [address] [place] [address] 06/27/2023 3:00 PM EDT [facility] [address] [place] [address] Zachary Stevenson PA-C [address] [place] [address] Scheduled Referrals Name Type Priority Associated Diagnoses Orde r Schedule [facility] REFERRAL OP Referral Within 10 days (routine) 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 No Care Teams Press Cleaner Relationship Specialty Start Date End Date Pro, Doug Castillo MD [address] [place] [address] PCP - General Internal Medicine 11/30/13 documented as of this encounter
--- OUTSIDE RECORDS SUMMARY | 2023-05-22 14:37 | External Medical Summary | Summary of Care ---
Author Name Unknown Organization [facility] Address [address] [place] [address] Phone [phone] Care Team Providers Care Singe Winder Name Role Phone Doug [place] MD Primary Care Provider +1- [phone] Encounter Details Date Type Department Care Team (Late st Contact Info) Description 05/16/2023 Telephone Hematology/Oncology [facility] [address] [place] [address] Jono Brown MD [address] [place] [address] Allergies Active Allergy Reactions Criticality Noted Date [...] evening. Take with meals. 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 Advised we will be sending b12 and syringes to her pharmacy and she will be receiving port flush supplies from [facility]. Genesis wilkes, patient is due this 06/05 for both port flush and B12 injection. documented in this encounter Plan of Treatment Upcoming Encounters Date Type Department Care Team (Late st Contact Info) Description 05/20/2023 12:30 PM EDT Home Visit [facility] [place] [address] Xiomara Chowdhury RN [address] [place] [address] 05/30/2023 2:30 PM EDT Laboratory Laboratory [facility] [place] [address] [place] [phone] [place] [address] [address] 06/06/2023 2:30 PM EDT Office Visit Hematology/Oncology [facility] [place] [address] [phone] Jono Brown MD [address] [place] [address] 06/06/2023 3:00 PM EDT Immunization/Injecti on Hematology/Oncology Treatment, [place] 200 [facility] [place] [phone] Nurse, Med [address] [place] [address] 06/07/2023 8:30 AM EDT [facility] Visit [facility], [facility] [address] [place] [address] Xiomara Chowdhury RN [address] [place] [address] 06/27/2023 3:00 PM EDT Home Visit [facility], [facility] [address] [place] [address] Zachary Stevenson PA-C [address] [place] [address] Health Maintenance Due Date Last Done Comments [...] the patient have Health Care Power of Motor Vehicle Technician? No Care Teams Singe Winder Relationship Specialty Start Date End Date Pro, Doug Castillo MD [address] [place] [address] PCP - General Internal Medicine 11/30/13 documented as of this encounter
--- OUTSIDE RECORDS SUMMARY | 2023-05-22 14:37 | External Medical Summary | Summary of Care ---
Author Name Unknown Organization [facility] Address [address] [place] [address] Phone [phone] Care Team Providers Care Cavalry Scout Name Role Phone ProDoug MD Primary Care Provider +1- [phone] Encounter Details Date Type Department Care Team (Late st Contact Info) Description 04/27/2023 Telephone Hematology/Oncology Treatment, [place] [address] [place] [address] Jono Brown MD [address] [place] [address] Allergies Active Allergy Reactions Criticality Noted Date [...] evening. Take with meals. 0 Active Creon [id number] UNIT Oral Capsule Delayed Release Particles 3 [...] valve replacement with prosthetic matteo ve 04/17/2013 [facility] current use of anticoagulant therapy 0 04/17/2013 [...] patient. Sent letter. * Telephone Encounter - aFbiola Bond MED ASSIST - 04/29/2023 8:56 AM [...] 10:00 AM EDT Laboratory Lab Mobile Phlebot[facility] [address] [place] [address] [facility], [facility] Mobile Home Draw [address] [place] [address] 05/20/2023 12:30 PM EDT [facility] [place] [address] Xiomara Chowdhury RN 132 [place] [address] 05/30/2023 2:30 PM EDT Laboratory Laboratory [facility] 200 [facility] [place] [phone] [place], [address] [place] [address] 06/06/2023 2:30 PM EDT Office Visit Hematology/Oncology [facility] [place] [address] [facility] [place] [phone] Jono Brown MD [address] [facility] [place] [address] 06/06/2023 3:00 PM EDT Immunization/Injecti on Hematology/Oncology Treatment, [place] [facility] [phone] Nurse, Med 200 [facility] [place] [address] 06/27/2023 3:00 PM EDT [facility] Visit [facility] [address] [place] [address] Zachary Stevenson PA-C [address] [place] [address] Health Maintenance Due Date Last Done Comments [...] the patient have Health Care Power of Engine Assembler? No Care Teams Cavalry Scout Relationship Specialty Start Date End Date Pro, Doug Castillo MD [address] [place], [place] [address] PCP - General Internal Medicine 11/30/13 documented as of this encounter
--- OUTSIDE RECORDS SUMMARY | 2023-05-22 14:37 | External Medical Summary | Summary of Care ---
Author Name Unknown Organization [facility] Address [address] [place] [address] Phone [phone] Care Team Providers Care Watch Crystal Edge Grinder Name Role Phone Pro, Doug Castillo MD Primary Care Provider +1- [phone] Reason for Visit * Reason Comments Dosage Adjustment Via Phone (anticoag Cl inic) Encounter Details Date Type Department Care Team (Latest Contact Info) Description 05/09/2023 5:30 PM EDT Anticoagulation Pharmacy, [facility] [address] [place] [address] Pharmacist2, [facility] [address] [place] [address] S/P aortic valve replacement with prosthetic valve* [...] evening. Take with meals. 0 Active Creon [id number] UNIT Oral Capsule Delayed Release Particles 3 [...] valve replacement with prosthetic matteo ve 04/17/2013 [facility] current use of anticoagulant therapy 0 04/17/2013 [...] Notes * Jose Alberto Sevilla [facility] - 05/09/2023 11:41 AM EDT Images from the original note were not included. Medication Therapy Disease Management - Anticoagulation Patient: Messi Ethel Bry | : 1945 Subjective Contacts Type Contact Phone/Fax 05/09/2023 12:10 PM EDT Phone (Outgoing) Anabell Londono (Emergency Contact) [phone] Left Message Patient-Reported Symptoms: Objective Current Warfarin [...] Rebollar, Sat Jose Alberto Sevilla [facility] Clinical Pharmacist 05/09/2023, 11:41 AM documented in this encounter Plan of Treatment Upcoming Encounters Date Type Department Care Team (Late st Contact Info) Description 05/20/2023 12:30 PM EDT [facility] [place] [address] Xiomara Chowdhury RN [address] [place] [address] 05/30/2023 2:30 PM EDT Laboratory Laboratory [facility] [place] [address] [facility] [place] [phone] [place] [facility] [address] [facility] [place] [address] 06/06/2023 2:30 PM EDT Office Visit Hematology/Oncology [facility] [place] [address] [facility] [place] [phone] Jono Brown MD [address] [facility] [place] [address] Health Maintenance Due Date Last Done Comments [...] the patient have Health Care Power of Food Expeditor? No Care Teams Watch Crystal Edge Grinder Relationship Specialty Start Date End Date ProDoug MD [address] [place] [address] PCP - General Internal Medicine 11/30/13 documented as of this encounter
--- OUTSIDE RECORDS SUMMARY | 2023-05-22 14:37 | External Medical Summary ---
Author Name Unknown Address Unknown Organization [facility] [address] [place] [address] Laboratory Report Ordering Provider Test Date Status KOFFI GIRALDO V 05/16/2023 09:57:00 Final Warfarin Therapy
INR: 2 .0-3.0 conventional anticoagulation
INR: 2.5- 3.5 high intensity anticoagulation Observation Date Value Abnormality Reference (Units ) Status PT 05/16/2023 09:57:00 14.7 11.6-15.2 (seconds) Final INR 05/16/2023 09:57:00 1.2 0.8-1.2 Final Performing Location [facility] [address] [place] [address]
--- NOTE | 2023-05-22 14:47 | Emergency Department Note ---
Impression & Plan Volume overload, ESRD (end stage renal disease) on dialysis, Pancytopenia, Encephalopathy, Complicated urinary tract infection ED Provider Note NAME: HIRAM BEAL AGE: 78 SEX: M : 1945 ARRIVES VIA: Ambulance INFORMANT: Patient, ED PROVIDER(S): Zachary Schroeder MD CHIEF COMPLAINT: Shortness of breath and cough MEDICAL DECISION MAKING: Patient presents due to concern for shortness of breath and associated cough which has been ongoing for the last 4 weeks. Patient symptoms have gotten progressively worse. Patient denies any chest pains. IV was established and blood work was obtained along with a bio fire BNP chest x-ray and magnesium. Patient's blood work shows leukopenia with a white count of 3.9 although chronic and stable. Chronic and stable anemia hemoglobin 8.4 with a platelet count of 90 which is also chronic. Patient's BNP is significantly elevated at 3300. Creatinine of 3.18. Known history of end-stage renal disease. Chest x-ray does show pleural effusions and CHF CT of the head shows no acute infarct. There is possibility of multiple myeloma noted on CT. Patient was ordered 80 of IV Lasix. I did speak with the on-call hospitalist service Dr. Quigley the patient was admitted to the medicine service. Patient urinalysis did eventually return which is likely infection. Hospitalist ordering IV antibiotics Discussion w/ other healthcare providers: Dr. Quigley inpatient medicines are Prior /Outside records reviewed: Reviewed a primary care visit from May 06, 2023 from [facility]. Patient with anemia ESRD chronic indwelling Chandler catheter history of A-fib on chronic anticoagulation aortic valve replacement patient did have a recent admission here at the hospital for sepsis and respiratory failure Patient had presented to the emergency department in March for weakness. Patient was noted to have acute systolic congestive heart failure and acute hypoxic respiratory failure. Patient also with suspected aspiration pneumonia and video swallow eval showed silent aspiration. Differential diagnosis: Reactive airway disease, pneumonia, pneumothorax, COPD, CHF, ACS, pulmonary embolism, musculoskeletal, GERD as well as other pathologies were considered. Diagnostics, as interpreted by me: ECG: Sinus with first-degree AV block, rate of 77, prolonged KS, normal QRS duration, normal axis. No ST elevations. Cardiac monitoring: An order was placed for continuous cardiac monitoring. The monitor shows a rate of 75 with sinus rhythm. Patient was placed on pulse oximetry Medical decision rules: None Imaging studies: I informally interpreted the patient's chest x-ray does show bilateral pleural effusion with formal report to follow. HPI: Patient presents due to concern for dyspnea and cough. The patient states that he primarily has significant difficulty with shortness of breath as he is getting up in the morning. Family at bedside states that he seems to even have conversational dyspnea. No smoking history of the patient has had cough but it is nonproductive. No known sick contacts or any recent travel. Patient does have a prior history of mechanical valve replacement currently on Coumadin and recommended to between 2 and 2.5 and does follow with Jm Mcgill. Also known history of ESRD with a right chest permacath undergoing dialysis Tuesday last dialyzed yesterday. Patient has not noticed any leg swelling does not take daily weights. He does not take diuretics. The patient the patient's family member at bedside state that he did have similar symptoms last year and had a pneumonia. Patient has had prior issues with leg swelling in the past for which she has just received Lasix. Daughter believes that he may be dehydrated which may be causing some slurred speech. Patient denies any facial droop numbness tingling or focal weakness. No prior history of stroke. PAST MEDICAL HISTORY: See Below PAST SURGICAL HISTORY: See Below SOCIAL HISTORY: See Below HOME MEDICATIONS: See Below ALLERGIES: See Below VITALS: See Below PHYSICAL EXAMINATION: GENERAL: NAD, non-toxic. EYE EXAM: Normal conjunctiva. PERRL, no anisocoria and EOM's grossly intact w/o pain. OROPHARYNX: Moist mucus membranes, grossly normal dentition. NECK: Trachea midline, no stridor. Supple, no nuchal rigidity, no adenopathy, non-tender. No signs of meningismus. FROM of the neck with good chin to chest and neck extension. LUNGS: Decreased breath sounds bilateral bases. Normal chest wall mechanics. HEART: NSR, audible click. No obvious murmur ABDOMEN: Abdomen soft, non-tender, no masses, no rebound or guarding. BACK: No CVA TTP. SKIN: No rashes and no bruising. UPPER EXTREMITIES: Upper extremities are grossly normal. LOWER EXTREMITIES: Grossly normal, 2-3+ pitting edema without calf pain or erythema NEURO EXAM: A&O x3, cranial nerves II-XII grossly intact, normal speech, moves all 4 extremities. Past Med/Surg History Medical History Indwelling Chandler catheter present Constipated Multiple myeloma in remission Normocytic normochromic anemia Cardiomyopathy Valvular heart disease Elevated INR Pulmonary edema Anemia Hypotension ESRD (end stage renal disease) Hemodialysis patient Tuesday//Tuesday [facility]. Depression Anxiety Chronic anticoagulation Paroxysmal atrial fibrillation managed with medication. no cardioversion. follows with Kiamara CantuArtem Thrombocytopathia Hypocalcemia Chronic kidney disease Pancreatic lesion (benign) Hypokalemia Secondary hyperparathyroidism Diarrhea chronic Multiple myeloma dx 2013, treated with a stem cell transplant and chemotherapy. last chemo treatment in 2013. currently in remission. Hypertension Dyslipidemia Surgical History S/P AVR (aortic valve replacement) (~1995) with repair of the AAA that was incidentally found. History of cystoscopy History of ERCP pancreatic biopsy History of colonoscopy History of tonsillectomy Permanent central venous catheter in place (08/26/22) Insertion of Perm Catheter, Right Internal Jugular Approach, Ultrasound Localization of Right Interanl Jugular vein, Fluoroscopy for Positioning(Right) - Ben Delgado, H/O stem cell transplant Family History Mother Alzheimer disease Sister Breast cancer Father Myocardial infarction Denies family history of Ovarian cancer Prostate cancer Colorectal cancer Social History Smoking Status: Unknown if ever smoked Second Hand Exposure: No; Do You Dip or Chew Tobacco: No; Hx Alcohol Use: No Hx Substance Use: No Preferred Language: Mozambican Communication Ability: Effective Visual Impairment: No Limitations Direct Selling Counselor Required: No Beliefs That Will Affect Care: None marital status: Current Living Situation: Spouse Current Living Situation Comment: with current occupational status: employed 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 Feels Safe at Home: Yes Childhood Exposure to Second-Hand Smoke: No Diet: low salt Dental Care, Regularly: Yes Physical Activity Frequency: 1-2 Times per Week Physical Activity Frequency Comment: walk Seatbelt Use: always Sunscreen Use: Yes Assistive Devices: Cane and Walker Allergies Allergies Allergy/AdvReac Type Severity Reaction Status Date / Time benzonatate Allergy Severe Hallucinati Unverified 05/06/23 15:00 [From Glenroy Billingsley] ng ASHLEY Inhibitors AdvReac Intermediate COUGH Verified 05/06/23 15:00 acetic acid AdvReac Intermediate Vinegar - Verified 05/06/23 15:00 Swelling of Lip/Tongue/Throat Home Meds Home Medications Medication Instructions Recorded Confirmed cholecalciferol (vitamin D3) 50 2,000 mcg PO BID 11/15/22 05/22/23 mcg (2,000 unit) capsule (Vitamin D3) sevelamer carbonate 800 mg tablet 800 mg PO TIDM 11/15/22 05/22/23 vit B complx, C-iron 8 mg-folic 1 tab PO DAILY 01/01/23 05/22/23 acid 800 mcg-D3 1,000 unit-zinc tablet (ProRenal) amoxicillin 500 mg capsule 2,000 mg PO ONCE PRN dental 04/01/23 05/22/23 appointment [id number]-[id number] 1 cap PO QID 04/01/23 05/22/23 36,000-114,000-180,000 unit capsule,delay rel (Creon) cyanocobalamin (vitamin B-12) 1,000 mcg IM MONTHLY 05/22/23 05/22/23 1,000 mcg/mL injection solution Previous Rx's Medication Instructions Recorded metoprolol tartrate 50 mg tablet 50 mg PO BID #60 tabs 09/30/22 loperamide 2 mg capsule 2 mg PO Q3H PRN loose stool #30 01/07/23 caps alprazolam 0.25 mg tablet (Xanax) 0.25 mg PO .COMPLEX #30 tabs 03/31/23 mirtazapine 15 mg tablet 7.5 mg (1/2 x 15 mg) PO HS #30 tabs 04/18/23 polyethylene glycol 3350 17 gram 17 g PO DAILY PRN constipation #0 04/18/23 oral powder packet (Miralax) ea warfarin 3 mg tablet 3 mg PO DAILY@1600 #20 tabs 04/18/23 simvastatin 20 mg tablet 20 mg PO HS #90 tabs 05/17/23 tamsulosin 0.4 mg capsule 0.4 mg PO HS #90 caps 05/17/23 Results & Data (ED) Vital Signs Vital Signs - 24 hr 05/22/23 15:07 05/22/23 15:07 05/22/23 16:18 Temperature 36.7 C Temperature Source Oral Pulse Rate 70 70 74 Pulse Rate [Apical] Respiratory Rate 24 20 Respiratory Effort / Characteristics Non-Labored Spontaneous Respiratory Depth Normal Respiratory Pattern Regular Blood Pressure 146/72 H Blood Pressure [Right Arm] Blood Pressure Mean 96 Blood Pressure Mean [Right Arm] Blood Pressure Position Lying Pulse Oximetry 94 94 Oxygen Delivery Method Room Air Room Air Sepsis Recent Fever Within 48 Hours No Sepsis New/Unexplained Change in Mental Status No Sepsis Action Taken by Nursing No Action Required 05/22/23 16:40 Temperature Temperature Source Pulse Rate Pulse Rate [Apical] 74 Respiratory Rate 24 Respiratory Effort / Characteristics Respiratory Depth Normal Respiratory Pattern Blood Pressure Blood Pressure [Right Arm] 136/79 Blood Pressure Mean Blood Pressure Mean [Right Arm] 98 Blood Pressure Position Pulse Oximetry 100 Oxygen Delivery Method Room Air Sepsis Recent Fever Within 48 Hours Sepsis New/Unexplained Change in Mental Status Sepsis Action Taken by [facility] Medications Current Medication List: was personally reviewed by me Laboratory Data Attestation: I reviewed the patient's lab results. 05/22/23 15:15 05/22/23 15:15 Lab Results 05/22/23 05/22/23 05/22/23 Range/Units 15:15 15:20 16:10 WBC 3.95 L (4.8-10.8) K/ul RBC 2.70 L (4.70-6.10) M/uL Hgb 8.4 L (14.0-18.0) g/dl Hct 26.0 L (42.0-52.0) % MCV 96.3 (80.0-100.0) fL MCH 31.1 (25.0-34.0) pg MCHC 32.3 (32.0-36.0) g/dL RDW Std Deviation 69.0 H (36.4-46.3) fL RDW Coeff of [place] 19.8 H (11.5-14.5) % Plt Count 90 L (130-400) K/uL MPV 12.4 (9.4-12.4) fL Immature Gran % (Auto) 0.3 % Neut % (Auto) 78.1 % Lymph % (Auto) 13.9 % [place] % (Auto) 6.6 % Eos % (Auto) 0.3 % Baso % (Auto) 0.8 % Neut # (Auto) 3.09 (1.40-6.50) K/uL Lymph # (Auto) 0.55 L (1.20-3.40) K/uL [place] # (Auto) 0.26 (0.11-0.59) K/uL Eos # (Auto) 0.01 (0.00-0.50) K/uL Baso # (Auto) 0.03 (0.00-0.20) K/uL Immature Gran # (Auto) 0.01 (0.01-0.20) K/uL PT 17.4 H (9.0-12.0) Seconds INR 1.6 H (0.9-1.1) APTT 30 (21-31) Seconds PTT Ratio 1.1 Sodium 135 L (136-145) mmol/L Potassium 4.1 (3.5-5.1) mmol/L Chloride 98 (98-107) mmol/L Carbon Dioxide 28 (21-32) mmol/L Anion Gap 9 (3-11) BUN 17 (6-23) mg/dl Creatinine 3.18 H (0.6-1.4) mg/dl Est Cr Clr Drug Dosing 18.6 ml/min Est GFR ( Amer) 20.4 ml/min Est GFR (Non-Af Amer) 17.6 ml/min BUN/Creatinine Ratio 5.3 L (10-20) Glucose 191 H (70-99(Fasting)) mg/dl Calcium 9.9 (8.6-10.3) mg/dl Magnesium 2.1 (1.7-2.4) mg/dl Total Bilirubin 0.7 (0.2-1.0) mg/dl AST 25 (13-39) U/L ALT 15 (7-52) U/L Alkaline Phosphatase 87 (34-104) U/L Troponin I High Sens 11.5 (0-20) pg/ml B-Natriuretic Peptide 3355 H (0-100) pg/ml Total Protein 7.6 (6.0-8.3) gm/dl Albumin 4.0 (3.4-5.0) gm/dl Globulin 3.6 (2.5-4.0) gm/dl Albumin/Globulin Ratio 1.1 (0.9-2) Urine Color Yellow Urine Appearance Cloudy A (Clear) Urine pH >= 9.0 H (4.5-7.5) Ur Specific [place] 1.012 (1.000-1.030) Urine Protein 3+ H (Negative) Urine Glucose (UA) 1+ H (Negative) Urine Ketones Negative (Negative) Urine Blood Trace H (Negative) Urine Nitrite Negative (Negative) Urine Bilirubin Negative (Negative) Urine Urobilinogen Negative (Negative) Ur Leukocyte Esterase 3+ H (Negative) Urine WBC (Auto) >30 H (0-5) /hpf Urine RBC (Auto) 5-10 H (0-4) /hpf U Hyaline Cast (Auto) 1-5 (0-5) /lpf U Epithel Cells (Auto) 0-5 (0-5) /lpf Urine Bacteria (Auto) 1+ H (Negative) WBC Casts 1-5 H (0) /lpf Urine Yeast Budding A (None Prsent) Adenovirus (PCR) Not Detected (NotDetected) B. pertussis DNA (PCR) Not Detected (NotDetected) B.parapertussis DNA PCR Not Detected (NotDetected) C. pneumoniae DNA (PCR) Not Detected (NotDetected) Coronavirus OC43 (PCR) Not Detected (NotDetected) Coronavirus HKU1 (PCR) Not Detected (NotDetected) Coronavirus 229E (PCR) Not Detected (NotDetected) SARS-CoV-2 (PCR) Not Detected (NotDetected) Coronavirus NL63 (PCR) Not Detected (NotDetected) Human Metapneumovir PCR Not Detected (NotDetected) Influenza Type A (PCR) Not Detected (NotDetected) Influenza Type B (PCR) Not Detected (NotDetected) M. pneumoniae (PCR) Not Detected (NotDetected) Parainfluenza 1 (PCR) Not Detected (NotDetected) Parainfluenza 2 (PCR) Not Detected (NotDetected) Parainfluenza 3 (PCR) Not Detected (NotDetected) Parainfluenza 4 (PCR) Not Detected (NotDetected) RSV (PCR) Not Detected (NotDetected) Entero/Rhino (PCR) Not Detected (NotDetected) Administered Medications Discontinued Medications Furosemide (Furosemide 40 Mg/4 Ml Vial) 80 mg IV ONE ONE Stop: 05/22/23 16:18 Last Admin: 05/22/23 16:37 Dose: 80 mg Documented By: FARNAZ Ceftriaxone Sodium 1,000 mg/ (Dextrose) 50 mls @ 100 mls/hr IV Q24H SYLVIA; Protocol Stop: 05/27/23 17:59 Last Admin: 05/22/23 19:09 Dose: Not Given Documented By: FARNAZ Cefepime HCl 1,000 mg/ Syringe 10 mls @ 5 mls/min IV NOW STA; Protocol Stop: 05/22/23 18:09 Last Admin: 05/22/23 19:09 Dose: 5 mls/min Documented By: FARNAZ Warfarin Sodium (Warfarin Sod 3 Mg Tab) 3 mg PO NOW STA Stop: 05/22/23 18:17 Last Admin: 05/22/23 19:09 Dose: 3 mg Documented By: FARNAZ Imaging Data Radiologist's Impression: Head CT 05/22/23 14:[address] DOSE: 2603.44 mGy.cm HISTORY: reported slurred speech TECHNIQUE: Multiaxial CT images of the head were performed without the use of intravenous contrast. Automated exposure control was utilized for this study. A dose lowering technique was utilized adhering to the principles of ALARA. Comparison: Head CT 09/26/2022. Findings: The paranasal sinuses and mastoid air cells are clear. The calvarium and skull base are intact. There is no mass, hematoma, midline shift, acute infarct. White matter hypodensity is nonspecific but suggestive of microvascular ischemic change. The ventricles and sulci demonstrate mild age-related involutional changes. Heterogeneous marrow pattern within the calvarium which may contain multiple small lucent lesions. Impression: 1. No acute infarct or intracranial hemorrhage. 2. Heterogeneous marrow pattern within the calvarium which may contain small lucent lesions. This raises the possibility of multiple myeloma. Correlation with recent bone marrow biopsy results recommended. ACT 112: Negative or not required by law. Electronically signed by: Aayush Sullivan M.D. 05/22/2023 4:06 PM Chest X-Ray 05/22/23 14:55 SINGLE VIEW CHEST CLINICAL HISTORY: Dyspnea. FINDINGS: 2 AP, portable, upright chest radiographs are compared to study dated 04/01/2023. A right internal jugular central venous infusion port and a right internal jugular central venous catheter are unchanged in position. The patient is status post midline sternotomy. The heart is enlarged nothing atherosclerotic calcification of the thoracic aorta. There is pulmonary vascular congestion. There are layering pleural effusions with dependent consolidation. No pneumothorax is seen. The skeletal structures are osteopenic. There are chronic/healed left-sided rib fractures. IMPRESSION: 1. Cardiomegaly with evidence of congestive failure. 2. Layering pleural effusions with dependent consolidation. ACT 112: Negative or not required by law. Electronically signed by: Cuauhtemoc Fuchs M.D. 05/22/2023 3:36 PM Discharge Plan Visit Data Chief Complaint: Cough Stated Complaint: COUGH, SOB ED Provider: Zachary Schroeder Discharge Problem: Volume overload, ESRD (end stage renal disease) on dialysis, Pancytopenia, Encephalopathy, Complicated urinary tract infection Patient Disposition: Admitted As Inpatient Discharge Instructions Interventions: ED Discharge Assessment Last Done: 05/22/23 20:24 Discharge Problem: Volume overload Qualifiers: Hypervolemia type: other Qualified Code(s): E87.79 - Other fluid overload
--- NOTE | 2023-05-22 15:37 | XRay Report ---
SINGLE VIEW CHEST CLINICAL HISTORY: Dyspnea. FINDINGS: 2 AP, portable, upright chest radiographs are compared to study dated 04/01/2023. A right int ernal jugular central venous infusion port and a right internal jugular central venous catheter are u nchanged in position. The patient is status post midline sternotomy. The heart is enlarged nothing at herosclerotic calcification of the thoracic aorta. There is pulmonary vascular congestion. There are layering pleural effusions with dependent consolidation. No pneumothorax is seen. The skeletal struct ures are osteopenic. There are chronic/healed left-sided rib fractures. IMPRESSION: 1. Cardiomegaly with evidence of congestive failure. 2. Layering pleural effusions with dependent consolidation. ACT 112: Negative or not required by law. Electronically signed by: Cuauhtemoc Fuchs M.D. 05/22/2023 3:36 PM
[2023-05-22 15:54] LABS: Basophils # (auto) 0.03 K/uL (0.00-0.20); Basophils % (auto) 0.8 %; Eosinophils # (auto) 0.01 K/uL (0.00-0.50); Eosinophils % (auto) 0.3 %; Hemoglobin 8.4 g/dl (14.0-18.0); Immature Granulocytes # (auto) 0.01 K/uL (0.01-0.20); Immature Granulocytes % (auto) 0.3 %; Lymphocytes # (auto) 0.55 K/uL (1.20-3.40); Lymphocytes % (auto) 13.9 %; Mean Corpuscular Hemoglobin 31.1 pg (25.0-34.0); Mean Corpuscular Hgb Conc 32.3 g/dL (32.0-36.0); Mean Corpuscular Volume 96.3 fL (80.0-100.0); Mean Platelet Volume 12.4 fL (9.4-12.4); Monocytes # (auto) 0.26 K/uL (0.11-0.59); Monocytes % (auto) 6.6 %; Neutrophils # (auto) 3.09 K/uL (1.40-6.50); Neutrophils % (auto) 78.1 %; Platelet Count 90 K/uL (130-400); RDW Coefficient of Variation 19.8 % (11.5-14.5); White Blood Count 3.95 K/ul (4.8-10.8)
--- NOTE | 2023-05-22 16:09 | CT Scan Report ---
HEAD CT NONCONTRAST CT DOSE: 2603.44 mGy.cm HISTORY: reported slurred speech TECHNIQUE: Multiaxial CT images of the head were performed without the use of intravenous contrast. A utomated exposure control was utilized for this study. A dose lowering technique was utilized adheri ng to the principles of ALARA. Comparison: Head CT 09/26/2022. Findings: The paranasal sinuses and mastoid air cells are clear. The calvarium and skull base are int act. There is no mass, hematoma, midline shift, acute infarct. White matter hypodensity is nonspecifi c but suggestive of microvascular ischemic change. The ventricles and sulci demonstrate mild age-rela walter involutional changes. Heterogeneous marrow pattern within the calvarium which may contain multipl e small lucent lesions. Impression: 1. No acute infarct or intracranial hemorrhage. 2. Heterogeneous marrow pattern within the calvarium which may contain small lucent lesions. This cadena ses the possibility of multiple myeloma. Correlation with recent bone marrow biopsy results recommend ed. ACT 112: Negative or not required by law. Electronically signed by: Aayush Sullivan M.D. 05/22/2023 4:06 PM
[2023-05-22 16:13] LABS: Albumin Globulin Ratio 1.1 (0.9-2); BUN Creatinine Ratio 5.3 (10-20); Bilirubin,Total 0.7 mg/dl (0.2-1.0); Calcium 9.9 mg/dl (8.6-10.3); Creatinine Clr Calc Pharmacy 18.6 ml/min; Est GFR (African American) 20.4 ml/min; Est GFR (Non-African American) 17.6 ml/min; Globulin 3.6 gm/dl (2.5-4.0); Magnesium 2.1 mg/dl (1.7-2.4); Potassium 4.1 mmol/L (3.5-5.1); Total Protein 7.6 gm/dl (6.0-8.3)
[2023-05-22 16:19] LABS: INR 1.6 (0.9-1.1); Partial Thromboplastin Ratio 1.1; Partial Thromboplastin Time 30 Seconds (21-31); Prothrombin Time 17.4 Seconds (9.0-12.0); Troponin I High Sensitivity 11.5 pg/ml (0-20)
[2023-05-22 16:34] LABS: Adenovirus PCR Not Detected (NotDetected); Bordetella parapertussis PCR Not Detected (NotDetected); Bordetella pertussis PCR Not Detected (NotDetected); Chlamydia pneumoniae PCR Not Detected (NotDetected); Coronavirus 229E PCR Not Detected (NotDetected); Coronavirus CoV-2 (COVID19)PCR Not Detected (NotDetected); Coronavirus HKU1 PCR Not Detected (NotDetected); Coronavirus NL63 PCR Not Detected (NotDetected); Coronavirus OC43PCR Not Detected (NotDetected); Human Metapneumovirus PCR Not Detected (NotDetected); Influenza A PCR Not Detected (NotDetected); Influenza B PCR Not Detected (NotDetected); Mycoplasma pneumoniae PCR Not Detected (NotDetected); Parainfluenza Virus 1 PCR Not Detected (NotDetected); Parainfluenza Virus 2 PCR Not Detected (NotDetected); Parainfluenza Virus 3 PCR Not Detected (NotDetected); Parainfluenza Virus 4 PCR Not Detected (NotDetected); Respiratory Syncytial VirusPCR Not Detected (NotDetected); Rhinovirus/Enterovirus PCR Not Detected (NotDetected)
[2023-05-22] MEDS: FUROSEMIDE 40 MG/4 ML VIAL IV ONE (16:37)
[2023-05-22 16:40] LABS: Appearance Urine Cloudy (Clear); Bilirubin Urine Negative (Negative); Blood Urine Trace (Negative); Color Urine Yellow; Epithelial Cell Urine Auto 0-5 /lpf (0-5); Glucose Urine UA 1+ (Negative); Ketones Urine Negative (Negative); Leukocyte Esterase Urine 3+ (Negative); Nitrite Urine Negative (Negative); Specific Gravity Urine 1.012 (1.000-1.030); Urobilinogen Urine Negative (Negative); WBC Urine Automated >30 /hpf (0-5); pH Urine >= 9.0 (4.5-7.5)
--- NOTE | 2023-05-22 16:48 | History & Physical Report ---
Date of Service May 22, 2023 Assessment & Plan (1) SOB (shortness of breath): Plan: -Admit to med/tele on pulse oximetry -Currently hemodynamically stable and stable on RA -Was sent to the ED from the [facility] Walk-in Urgent care clinic due to ongoing SOB/SETH, transient hypoxia -CXR today shows Cardiomegaly with evidence of congestive failure and layering BL pleural effusions -Noted to have a hx of both ESRD on HD and HFrEF/reduced right ventricular function as well -Is not on outpatient diuretics in-between dialysis sessions -Did have a full dialysis session yesterday -Likely a combination of ESRD and CHF -S/P 80 mg IV lasix in the ED, patient does make urine -Will Consult Nephrology for possible dialysis session tomorrow to assist with volume status -Will hold further doses of IV diuretics overnight since he had 80 mg IV lasix in the ED and anticipate dialysis session tomorrow >Suspect he will require diuresis on non-dialysis days moving forward -Monitor intake/output and daily weight -Incentive spirometry, flutter therapy, prn O2 to keep SpO2 at or above 94% -Home warfarin for DVT PPX -HH/renal dialysis diet with 2gm sodium and 1500 mL fluid restriction -AM CBC, BMP, mag, PT/INR (2) Pleural effusion: Plan: -Monitor for improvement after IV lasix and dialysis -If not improving could consider IR or Pulmonology consult for thoracentesis (3) Metabolic encephalopathy: Plan: -Patient has been experiencing intermittent episodes of possible auditory and visual hallucinations -VBG is WNL, renal function and BUN are stable, patient does appear to have a UTI with UA consistent with infection and without epithelial cells -CT head is negative for acute findings of the brain -At this time we will treat for UTI with Q244 ceftriaxone and monitor for improvement -Fall/aspiration precautions ordered (4) UTI (urinary tract infection): Plan: -Noted on UA today -Has grown pansensitive Klebsiella, pansensitive e. coli, and enterococcus in the past -Will start with renally dosed Cefepime for now -Follow urine cultures -Will obtain blood cultures prior to starting abx (5) End-stage renal disease on hemodialysis: Plan: -Normally on HD TTSat - confirms he had a full dialysis session yesterday -Nephrology consulted -Continue chronic renal medications -monitor daily renal function and electrolytes (6) Volume overload: Plan: -See SOB (7) S/P AVR (aortic valve replacement): Plan: -Previous [facility] metallic AVR in 1995 - explains that they follow with Anticoagulation clinic for his INR monitoring/dosing -While INR goal for metallic aortic valve replacements is normally 2.5-3.5, his states that she has discussed this multiple times with the Anticoagulation specialist and they stressed that they prefer to keep hime between 2.0-3.0 -INR is 1.6 today, did not have his dose of Warfarin prior to admission -Will give his home dose of warfarin now -Monitor daily INR, will keep his goal between 2.0-3.0 as performed by his outpatient anticoagulation clinic (8) Pancytopenia: Plan: -Currently stable -Has been a chronic issue thought to be due to multiple myeloma -He is status post previous stem cell transplant -He underwent bone marrow biopsy during his admission in March of this year, results were reported as "No morphologic evidence of myelodysplasia is seen" -Continue to follow with heme/onc -Monitor daily CBC and monitor for bleeding (9) Paroxysmal atrial flutter: Plan: -Currently in sinus rhythm with first degree AV block -Continue Warfarin and Metoprolol (10) Indwelling Cordero catheter present: Plan: -Is followed outpatient by Urology and has his leg bag exchanged routinely -Will have his leg bag replaced by a larger bag on admission -Daily catheter care ordered Plan The patient was discussed with Dr. Quigley at the time of the admission History of Present Illness Chief Complaint: SOB/SETH Primary Care Provider: Doug Franklin MD Messi is a 78 year old male with a PMH significant for ESRD on HD TTSat, HFrEF (LVEF of 35-40%, moderately reduced RVEF as of 04/02/23), previous aortic valve replacement in 1995 (on Warfarin), Paroxysmal atrial flutter, BPH with chronic urinary retention, chronic cordero catheter, and chronic thrombocytopenia who was sent to the ED from the [facility] walk in-clinic due to ongoing SOB/SETH. He remained stable in the ED. Labs were significant for a platelet count of 90, INR of 1.6, BNP of 3555, full respiratory biofire negative, and UA in process. Chest xray was read as "1. Cardiomegaly with evidence of congestive failure. 2. Layering pleural effusions with dependent consolidation.". CT of the head/brain wo con was read as "1. No acute infarct or intracranial hemorrhage. 2. Heterogeneous marrow pattern within the calvarium which may contain small lucent lesions. This raises the possibility of multiple myeloma. Correlation with recent bone marrow biopsy results recommended.". Prior to admission the patient was given 80 mg IV lasix. At the time of the exam the patient was sitting in bed in no acute distress with his sitting bedside, history was obtained from both. The patient has been experiencing progressive SOB and SETH over the past 1-2 weeks. He has also had associated BL LE pitting edema and decreased exercise tolerance due to his SOB. He tolerated a full dialysis session yesterday. His states that she took him to Urgent Care earlier today as the patient was having difficulty speaking in complete sentences and had another episode of auditory hallucinations. When asked about hallucinations the patient and his explain that the patient has been experiencing auditory and visual hallucinations since his last admission in March of this year. They explained that the patient will start to speak with to voices which she does not hear. This will sometimes occur shortly after he wakes up from sleep or a nap. The patient believes that he will see bugs on his extremities and blankets which are not really there. He said this was occurring last admission but he did not tell anyone. While discussing his hallucinations he pointed to a piece of dirt on his blanket and said it looked like a but that was moving. He also pointed to 2 other dark spots on his blankets that myself and his could both see. His states, "maybe he needs to get his eyes checked". They deny the patient having recent fever, chills, chest pain, productive cough, nausea, vomiting, abd pain, hematuria, diarrhea, melena, and recent trauma. He is a full code and his is his POA. Please refer to Dr. Quigley's attestation for any changes to the treatment plan Allergies Allergy/AdvReac Type Severity Reaction Status Date / Time benzonatate Allergy Severe Hallucinati Unverified 05/06/23 15:00 [From Glenroy Billingsley] ng ASHLEY Inhibitors AdvReac Intermediate COUGH Verified 05/06/23 15:00 acetic acid AdvReac Intermediate Vinegar - Verified 05/06/23 15:00 Swelling of Lip/Tongue/Throat Home Medications Medication Instructions Recorded Confirmed Type metoprolol tartrate 50 mg tablet 50 mg PO BID #60 tabs 09/30/22 05/22/23 Rx cholecalciferol (vitamin D3) 50 2,000 mcg PO BID 11/15/22 05/22/23 History mcg (2,000 unit) capsule (Vitamin D3) sevelamer carbonate 800 mg tablet 800 mg PO TIDM 11/15/22 05/22/23 History vit B complx, C-iron 8 mg-folic 1 tab PO DAILY 01/01/23 05/22/23 History acid 800 mcg-D3 1,000 unit-zinc tablet (ProRenal) loperamide 2 mg capsule 2 mg PO Q3H PRN loose stool #30 01/07/23 05/22/23 Rx caps alprazolam 0.25 mg tablet (Xanax) 0.25 mg PO .COMPLEX #30 tabs 03/31/23 05/22/23 Rx amoxicillin 500 mg capsule 2,000 mg PO ONCE PRN dental 04/01/23 05/22/23 History appointment [id number]-[id number]-[id number] 1 cap PO QID 04/01/23 05/22/23 History 36,000-114,000-180,000 unit capsule,delay rel (Creon) mirtazapine 15 mg tablet 7.5 mg (1/2 x 15 mg) PO HS #30 tabs 04/18/23 05/22/23 Rx polyethylene glycol 3350 17 gram 17 g PO DAILY PRN constipation #0 04/18/23 05/22/23 Rx oral powder packet (Miralax) ea warfarin 3 mg tablet 3 mg PO DAILY@1600 #20 tabs 04/18/23 05/22/23 Rx simvastatin 20 mg tablet 20 mg PO HS #90 tabs 05/17/23 05/22/23 Rx tamsulosin 0.4 mg capsule 0.4 mg PO HS #90 caps 05/17/23 05/22/23 Rx cyanocobalamin (vitamin B-12) 1,000 mcg IM MONTHLY 05/22/23 05/22/23 History 1,000 mcg/mL injection solution Past Med/Surg History Medical History (Updated 05/22/23 @ 18:04 by Kory Baum PA-C) Indwelling Cordero catheter present Constipated Multiple myeloma in remission Normocytic normochromic anemia Cardiomyopathy Valvular heart disease Elevated INR Pulmonary edema Anemia Hypotension ESRD (end stage renal disease) Hemodialysis patient Tuesday//Tuesday [facility]. Depression Anxiety Chronic anticoagulation Paroxysmal atrial fibrillation managed with medication. no cardioversion. follows with Jm Cantueler Thrombocytopathia Hypocalcemia Chronic kidney disease Pancreatic lesion (benign) Hypokalemia Secondary hyperparathyroidism Diarrhea chronic Multiple myeloma dx 2013, treated with a stem cell transplant and chemotherapy. last chemo treatment in 2013. currently in remission. Hypertension Dyslipidemia Surgical History (Updated 05/22/23 @ 18:15 by Kory Baum PA-C) S/P AVR (aortic valve replacement) (~1995) with repair of the AAA that was incidentally found. History of cystoscopy History of ERCP pancreatic biopsy History of colonoscopy History of tonsillectomy Permanent central venous catheter in place (08/26/22) Insertion of Perm Catheter, Right Internal Jugular Approach, Ultrasound Localization of Right Interanl Jugular vein, Fluoroscopy for Positioning(Right) - Ben Delgado, H/O stem cell transplant Family History Mother Alzheimer disease Sister Breast cancer Father Myocardial infarction Denies family history of Ovarian cancer Prostate cancer Colorectal cancer Social History Smoking Status: Unknown if ever smoked Second Hand Exposure: No; Do You Dip or Chew Tobacco: No; Hx Alcohol Use: No Hx Substance Use: No Preferred Language: [place] Communication Ability: Effective Visual Impairment: No Limitations Group Home Manager Required: No Beliefs That Will Affect Care: None marital status: Current Living Situation: Spouse Current Living Situation Comment: with current occupational status: employed 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 Feels Safe at Home: Yes Childhood Exposure to Second-Hand Smoke: No Diet: low salt Dental Care, Regularly: Yes Physical Activity Frequency: 1-2 Times per Week Physical Activity Frequency Comment: walk Seatbelt Use: always Sunscreen Use: Yes Assistive Devices: Cane and Walker Physical Exam Physical Exam: Physical Exam: General: In no acute distress, stated age, chronically ill appearing but non- toxic HEENT: Normocephalic, atraumatic, no scleral icterus, pupils around round, symmetrical, and reactive to light, dry mucus membranes, trachea midline, no thyromegaly Chest/Pulm: No respiratory distress, symmetrical chest expansion, decreased breath sounds in the BL lower and mid lung lofton Cardiac: RRR, click from mechanical heart valve noted Abdomen: Negative for ascites and bruising, normoactive bowel sounds, soft, non-tender to palpation throughout : Chronic cordero is in place and draining clear, yellow urine Musculoskeletal: Symmetrical and without signs of acute trauma, upper and lower extremities with full ROM, no atrophy, spasticity, or flaccidity Extremities: Radial, dorsalis pedis, and posterior tibial pulses are intact and symmetrical, 2+ pitting edema noted in the BL LE's Skin: Warm, dry, no rashes , lesions, or scars noted Neuro: Alert and oriented to person and place only, no focal defects, CN II- XII tested and intact, tremors noted Psych: No acute distress, calm and cooperative during the exam, Results & Data Results & Data Vital Signs (Past 12 Hours) Vital Signs Temp Pulse Resp BP Pulse Ox O2 Del Method 05/22/23 16:18 74 05/22/23 15:07 70 20 94 Room Air 05/22/23 15:07 36.7 C 70 24 146/72 H 94 Room Air Laboratory Results Abnormal lab results 05/22/23 05/22/23 Range/Units 15:15 16:10 WBC 3.95 L (4.8-10.8) K/ul RBC 2.70 L (4.70-6.10) M/uL Hgb 8.4 L (14.0-18.0) g/dl Hct 26.0 L (42.0-52.0) % RDW Std Deviation 69.0 H (36.4-46.3) fL RDW Coeff of Berto 19.8 H (11.5-14.5) % Plt Count 90 L (130-400) K/uL Lymph # (Auto) 0.55 L (1.20-3.40) K/uL PT 17.4 H (9.0-12.0) Seconds INR 1.6 H (0.9-1.1) Sodium 135 L (136-145) mmol/L Creatinine 3.18 H (0.6-1.4) mg/dl BUN/Creatinine Ratio 5.3 L (10-20) Glucose 191 H (70-99(Fasting)) mg/dl B-Natriuretic Peptide 3355 H (0-100) pg/ml Urine Appearance Cloudy A (Clear) Urine pH >= 9.0 H (4.5-7.5) Urine Protein 3+ H (Negative) Urine Glucose (UA) 1+ H (Negative) Urine Blood Trace H (Negative) Ur Leukocyte Esterase 3+ H (Negative) Urine WBC (Auto) >30 H (0-5) /hpf Urine RBC (Auto) 5-10 H (0-4) /hpf Urine Bacteria (Auto) 1+ H (Negative) WBC Casts 1-5 H (0) /lpf Urine Yeast Budding A (None Prsent) Diagnostic Findings Head CT 05/22/23 14:[address] DOSE: 2603.44 mGy.cm HISTORY: reported slurred speech TECHNIQUE: Multiaxial CT images of the head were performed without the use of intravenous contrast. Automated exposure control was utilized for this study. A dose lowering technique was utilized adhering to the principles of ALARA. Comparison: Head CT 09/26/2022. Findings: The paranasal sinuses and mastoid air cells are clear. The calvarium and skull base are intact. There is no mass, hematoma, midline shift, acute infarct. White matter hypodensity is nonspecific but suggestive of microvascular ischemic change. The ventricles and sulci demonstrate mild age-related involutional changes. Heterogeneous marrow pattern within the calvarium which may contain multiple small lucent lesions. Impression: 1. No acute infarct or intracranial hemorrhage. 2. Heterogeneous marrow pattern within the calvarium which may contain small lucent lesions. This raises the possibility of multiple myeloma. Correlation with recent bone marrow biopsy results recommended. ACT 112: Negative or not required by law. Electronically signed by: Aayush Sullivan M.D. 05/22/2023 4:06 PM Chest X-Ray 05/22/23 14:55 SINGLE VIEW CHEST CLINICAL HISTORY: Dyspnea. FINDINGS: 2 AP, portable, upright chest radiographs are compared to study dated 04/01/2023. A right internal jugular central venous infusion port and a right internal jugular central venous catheter are unchanged in position. The patient is status post midline sternotomy. The heart is enlarged nothing atherosclerotic calcification of the thoracic aorta. There is pulmonary vascular congestion. There are layering pleural effusions with dependent consolidation. No pneumothorax is seen. The skeletal structures are osteopenic. There are chronic/healed left-sided rib fractures. IMPRESSION: 1. Cardiomegaly with evidence of congestive failure. 2. Layering pleural effusions with dependent consolidation. ACT 112: Negative or not required by law. Electronically signed by: Cuauhtemoc Fuchs M.D. 05/22/2023 3:36 PM ECG Additional Comments: Sinus rhythm with 1st degree A-V block Incomplete left bundle block Minimal voltage criteria for LVH, may be normal variant ( Buckley product ) Nonspecific ST and T wave abnormality Prolonged QT Abnormal ECG When compared with ECG of 03-APR-2023 23:50, Premature ventricular complexes are no longer Present TN interval has increased T wave inversion no longer evident in Anterior leads Code Status & VTE Plan Code Status Full code VTE Prophylaxis Plan VTE Prophylaxis will be ordered: Yes Supervising Physician Co-Signing Physician Notes Patient seen and examined, chart reviewed, case discussed with Kory Baum and I agree with the assessment and plan as above except as otherwise noted Labs and images reviewed 78-year-old male with a history of not anuric ESRD, heart failure with reduced ejection fraction 30-40%, Tuesday dialysis who presents with shortness of breath, evidence of volume overload with BNP 3355 and chest x-ray with layering pleural effusions bilaterally. Additionally patient has had some confusion and concern for hallucinations or seeing bugs/spots moving, CT of the head is normal does show calvarium possibly concerning for multiple myeloma although this was not noted on his biopsy and shows no intracranial findings. Patient has a indwelling Cordero with a leg bag, clean specimen was obtained with no epithelial cells and this is infected appearing. May be metabolic enc ephalopathy of UTI, cefepime continued as above deu to hx of resistant cultures. No hyperkalemia on admission. Agree with admission, nephrology consult for dialysis, received Lasix 80 mg and may continue twice daily 17 on nondialysis days; anticipate dialysis tomorrow. Agree with assessment and management above. Additionally patient notes that he has a liberalized diet which is not a dialysis diet as his potassium and phosphorus have been stable and he continues to make urine; however ever patient agreeable that if he has any uptrending potassium or phosphorus will be switched to a renal diet at that point. Patient and family notes that he has had significant weight loss and are aware of the risk/benefits of being on a liberalized diet in the setting of dialysis dependence PG Care Time/CCT Total # of Minutes Spent Total Time Spent with Patient: Total time spent is greater than 50% in coordination of care (as documented) at patient's floor/unit and/or counseling patient: Coding Level of Care Code 97754 INT INP/OBS CARE 3/75MIN History Comprehensive Exam Comprehensive Medical Decision Making High Complexity Diagnoses SOB (shortness of breath) R06.02 Pleural effusion J90 Metabolic encephalopathy G93.41 UTI (urinary tract infection) N39.0 End-stage renal disease on hemodialysis N18.6; Z99.2 Volume overload E87.70 S/P AVR (aortic valve replacement) Z95.2 Pancytopenia D61.818 Paroxysmal atrial flutter I48.92 Indwelling Cordero catheter present Z97.8
[2023-05-22 16:59] LABS: Protein Urine 3+ (Negative)
[2023-05-22 17:20] LABS: Bacteria Urine Automated 1+ (Negative)
[2023-05-22] MEDS: CEFEPIME 1,000 MG in SYRINGE 0 ML IV STA (19:09)
[2023-05-22] MEDS: cefTRIAXone SODIUM 1,000 MG in DEXTROSE 5 % MINI-B 50 ML IV SCH (19:09)
[2023-05-22] MEDS: WARFARIN SOD 3 MG TAB PO STA (19:09)
--- OUTSIDE RECORDS SUMMARY | 2023-05-22 20:27 | External Medical Summary | Summary of Care ---
Author Name Unknown Organization [facility] Address [address] [place] [address] Phone [phone] Care Team Providers Care Can Washer Name Role Phone Pro, Doug Castillo MD Primary Care Provider +1- [phone] Reason for Visit * Reason Comments Other Encounter Details Date Type Department Care Team (Latest Contact Info) Description 05/22/2023 1:30 PM EDT Convenient Care Visit [facility] [address] [place] [address] Brett Azul PA-C 174 [place] [address] Hypoxia*; Hypothermia, initial encounter; Acute cough; SOB (shortness of breath); Hallucinations Allergies Active Allergy Reactions Criticality Noted Date Comments Torito Inhibitors 04/16/2013 Acetic Acid 04/04/2014 Severe mouth uclers documented as of this encounter (statuses as of 05/22/2023) Medications Medication Sig Dispensed Refills Start Date [...] evening. Take with meals. 0 Active Creon [id number] UNIT Oral Capsule Delayed Release Particles 3 [...] by mouth in the morning. 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 0 04/17/2013 [...] as of this encounter (statuses as of 05/22/2023) Resolved Problems Problem Noted Date Diagnosed Date Resolved Date Tachycardia 12/16/2013 12/26/2013 Metabolic acidosis 12/15/2013 4 Electrolyte and fluid disorder 12/13/2013 12/26/2013 Shingles 09/20/2013 12/11/2013 documented as of this encounter (statuses as of 05/22/2023) Immunizations Name Administration Dates Next Due COVID-19 [...] Sign Reading Time Taken Comments Blood Pressure 122/58 05/22/2023 1:44 PM EDT Pulse 80 05/22/2023 1:44 PM EDT Temperature 34.7 C (94.4 F) 05/22/2023 1:44 PM ED T Respiratory Rate 18 05/22/2023 1:44 PM EDT Oxygen Saturation 93% 05/22/2023 1:44 PM EDT Inhaled Oxygen Concentration - - Weight 65.4 kg (144 lb 3.2 oz) 05/22/2023 1:44 P M EDT Height - - Body Mass Index 20.69 07/06/2022 8:13 AM EDT documented in this encounter Functional Status Functional [...] as of this encounter Progress Notes * Brett Azul PA-C - 05/22/2023 1:59 PM EDT Nursing Notes: Ni Jones LPN 05/22/23 1346 Sign at exiting of workspace Messi Londono is a 78 year old male who presents to clinic today for... Main Symptoms: shortness of breath, coughing. Dialysis patient. 03/31-05/05 hosp and rehab. And hallucinating last night and today--this is NEW For pneumonia. How long: Tried: Pt accompanied by: Subjective Messi Londono is a 78 year old male with a PMH of Afib s/p AVR on warfarin, Multiple myleoma s/p stemcell transplant in remission, CKD5 on dialysis that presents for Other reports coughing (mostly dry), SOB, malaise, fatigue, confusion, auditory and visual hallucinations x last few days. Denies urinary symptoms. Was hospitalized in Mar - mid April for PNA. Had dialysis 05/21/23. Denies f/s/ch, sinus, hematuria, urinary symptoms, n/v/d. He does have an indwelling catheter. Objective BP 122/58 | Pulse 80 | Temp (!) 34.7 C (94.4 F) | Resp 18 | Wt 65.4 kg (144 lb 3.2 oz) | SpO2 93% | BMI 20.69 kg/m | BSA 1.8 m Body mass index is 20.69 kg/m. BP Readings from Last 3 Encounters: 05/22/23 122/58 05/20/23 130/68 11/29/22 137/66 Wt Readings from Last 3 Encounters: 05/22/23 65.4 kg (144 lb 3.2 oz) 11/29/22 68 kg (150 lb) 08/03/22 69.6 kg (153 lb 6.4 oz) Physical Exam Vitals and nursing note reviewed. Constitutional: General: He is not in acute distress. Appearance: Normal appearance. He is ill-appearing. He is not toxic-appearing or diaphoretic. HENT: Head: Normocephalic and atraumatic. Right Ear: External ear normal. Left Ear: External ear normal. Nose: Nose normal. No congestion or rhinorrhea. Eyes: General: No scleral icterus. Extraocular Movements: Extraocular movements intact. Conjunctiva/sclera: Conjunctivae normal. Pupils: Pupils are equal, round, and reactive to light. Neck: Vascular: No carotid bruit. Cardiovascular: Rate and Rhythm: Normal rate and regular rhythm. Heart sounds: Murmur heard. No friction rub. No gallop. Pulmonary: Effort: Pulmonary effort is normal. No respiratory distress. Breath sounds: No wheezing, rhonchi or rales. Chest: Chest wall: No tenderness. Musculoskeletal: General: No swelling or tenderness. Normal range of motion. Cervical back: Normal range of motion and neck supple. No rigidity. No muscular tenderness. Right lower leg: No edema. Left lower leg: No edema. Lymphadenopathy: Cervical: No cervical adenopathy. Skin: General: Skin is warm and dry. Capillary Refill: Capillary refill takes less than 2 seconds. Neurological: General: No focal deficit present. Mental Status: He is alert and oriented to person, place, and time. Psychiatric: Mood and Affect: Mood normal. Behavior: Behavior normal. Thought Content: Thought content normal. Judgment: Judgment normal. Assessment and plan 1. Hypoxia 2. Hypothermia, initial encounter 3. Acute cough 4. SOB (shortness of breath) 5. Hallucinations Needs further work-up and management. Recommend EMS transfer to ER. Pt and spouse agreed. 911 called ??UTI vs PNA Less like azotemia as just had dialysis Pt placed on 2L O2 via NC Recheck revealed SpO2% at 90%. Titrated to 3L. Pt's SpO2% increased to 95-98% EMS arrived, report given. Care transferred Follow up To ER via EMS The above was discussed and understanding was expressed. Brett Azul PA-C documented in this encounter Nursing Notes * Ni Jones LPN - 05/22/2023 1:42 PM EDT Messi Londono is a 78 year old male who presents to clinic today for... Main Symptoms: shortness of breath, coughing. Dialysis patient. 03/31-05/05 hosp and rehab. And hallucinating last night and today--this is NEW For pneumonia. How long: Tried: Pt accompanied by: documented in this encounter Plan of Treatment Upcoming Encounters Date Type Department Care Team (Late st Contact Info) Description 05/23/2023 7:00 AM EDT Laboratory Lab [facility] [address] [place] [address] [facility], [facility] Mobile Home Draw [address] [place] [address] 05/23/2023 10:45 AM EDT Scheduled Telephone [facility], [facility] 132 [facility] [place] [address] Coordinator, [facility] 132 [facility] [place] [address] 05/24/2023 6:00 AM EDT [facility], [facility] Call Center WB [address] [facility] [place] [address] Ccp, [facility] 58 60 [facility] [place] [address] 05/30/2023 2:30 PM EDT Laboratory Laboratory [facility] [address] [place] [phone] [place] [facility] 200 [facility] [place] [address] 06/06/2023 2:30 PM EDT Office Visit Hematology/Oncology [facility] [place] [address] [place] [phone] Jono Brown MD [address] [place] [address] 06/27/2023 3:00 PM EDT Home Visit [facility] [place], [facility] [address] [place] [address] Zachary Stevenson PA-C [address] [place] [address] 07/01/2023 2:30 PM EDT Home Visit [facility] [place], [facility] 132 [place] [address] Xiomara Chowdhury, RN [address] [place] [address] Health Maintenance Due Date Last Done Comments [...] as of this encounter Visit Diagnoses Diagnosis Hypoxia- Primary Hypoxemia Hypothermia, initial encounter Acute cough SOB (shortness of breath) Shortness of breath Hallucinations documented in this encounter Advance Directives Latest [...] the patient have Health Care Power of Clinical Research Specialist? No Care Teams Can Washer Relationship Specialty Start Date End Date ProDoug MD [address] [place] [address] PCP - General Internal Medicine 11/30/13 documented as of this encounter
--- OUTSIDE RECORDS SUMMARY | 2023-05-22 20:27 | External Medical Summary | Summary of Care ---
Author Name Unknown Organization [facility] Address [address] [place] [address] Phone [phone] Care Team Providers Care Wallpaper Embosser Helper Name Role Phone Pro, Doug Castillo MD Primary Care Provider +1- [phone] Reason for Visit * Reason Comments Other Encounter Details Date Type Department Care Team (Latest Contact Info) Description 05/22/2023 1:30 PM EDT Convenient Care Visit [facility] [address] [place] [address] Brett Azul PA-C 174 [place] [address] Hypoxia*; Hypothermia, initial encounter; Acute cough; SOB [...] evening. Take with meals. 0 Active Creon [id number] UNIT Oral Capsule Delayed Release Particles 3 [...] AM EDT Laboratory Lab [facility] [address] [place] [address] M[facility], [facility] Mobile Home Draw [address] [place] [address] 05/24/2023 6:00 AM EDT Anticoagulation Pharmacy Call Center [address] [place] [address] [facility] [address] [place] [address] 05/30/2023 2:30 PM EDT Laboratory Laboratory [facility] [place] [address] [place] [phone] [facility] [address] [place] [address] 06/06/2023 2:30 PM EDT Office Visit Hematology/Oncology [facility] [place] [address] [place] [phone] Jono Brown MD [address] [place] [address] 06/27/2023 3:00 PM EDT Home Visit [facility] [place], [facility] 132 [facility] [place] [address] Zachary Stevenson PA-C 132 [facility] [place] [address] 07/01/2023 2:30 PM EDT Home Visit [facility] [place], [facility] 132 [facility] [place] [address] Xiomara Chowdhury RN 132 [facility] [place] [address] Health Maintenance Due Date Last Done Comments [...] the patient have Health Care Power of Supervisor Nutritional Yeast? No Care Teams Wallpaper Embosser Helper Relationship Specialty Start Date End Date Pro, Doug Castillo MD [address] [place] [address] PCP - General Internal Medicine 11/30/13 documented as of this encounter
--- OUTSIDE RECORDS SUMMARY | 2023-05-22 20:27 | External Medical Summary | Summary of Care ---
Author Name Unknown Organization [facility] Address [address] [place] [address] Phone [phone] Care Team Providers Care Order Caller Name Role Phone Pro, Doug Castillo MD Primary Care Provider +1- [phone] Reason for Visit * Reason Comments Other Encounter Details Date Type Department Care Team (Latest Contact Info) Description 05/22/2023 1:30 PM EDT Convenient Care Visit [facility] [address] [place] [address] Brett Azul PA-C 174 [facility] [place] [place] [address] Hypoxia*; Hypothermia, initial encounter; Acute cough; SOB [...] evening. Take with meals. 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 [place] 58 60 [facility] [place] [address] 05/30/2023 2:30 PM EDT Laboratory Laboratory [facility] [address] [place] [phone] Alka [facility] 200 [facility] [place] [address] 06/06/2023 2:30 PM EDT Office Visit Hematology/Oncology [facility] [place] [address] [place] [phone] Jono Brown MD [address] [place] [address] 06/27/2023 3:00 PM EDT Home Visit [facility] [place], [facility] [address] [place] [address] [address] Zachary Stevenson PA-C [address] [place] [address] 07/01/2023 2:30 PM EDT Home Visit [facility] [place], [facility] 132 [place] [address] Xiomara Chowdhury, RN [address] [place] [address] Health Maintenance Due Date Last Done Comments [...] the patient have Health Care Power of Tallow Pumper? No Care Teams Order Caller Relationship Specialty Start Date End Date ProDoug MD [address] [place] [address] PCP - General Internal Medicine 11/30/13 documented as of this encounter
[2023-05-22] MEDS: PANCREAZE (LIPASE 10,500U) CAP PO SCH (21:56)
[2023-05-22] MEDS: SIMVASTATIN 20 MG TAB PO SCH (21:57)
[2023-05-22] MEDS: TAMSULOSIN HCL 0.4 MG CAP PO SCH (21:57)
[2023-05-22] MEDS: METOPROLOL TARTRATE 50 MG TAB PO SCH (21:57)
[2023-05-23] MEDS: guaiFENesin 600 MG TABCR PO SCH (02:00)
--- NOTE | 2023-05-23 07:37 | Hospitalist Progress Note ---
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 Today, waiting nephrology recs. Pending urine cx. Pending INR. Pt to get dialysis today. #Acute on chronic HFrEF exac - had progressive SOB over last 2 weeks, not on home diuresis since pt on dialysis - CXR on admission showed cardiomegaly + signs of CHF and dependent pleural effusions, likely secondary to CHF exac/ volume overload although if effusions worsen can consider thoracentesis - S/P 80 mg IV lasix in the ED, patient does make urine - symptoms have improved so will hold further diuresis at this time and continue dialysis per nephrology - monitor weights daily, consider careful diuresis on non-dialysis days if overload suspected #Metabolic encephalopathy - Patient has been experiencing intermittent episodes of auditory and visual hallucinations on admission that have since resolved - CT head is negative for acute findings of the brain - VBG is WNL, renal function and BUN are stable, patient does appear to have a UTI with UA consistent with infection, UTI most likely cause of delirium - symptoms have improved, no more hallucinations noted by pt - awaiting blood cx; pending #UTI (urinary tract infection) - UTI noted on UA on admission, pt has chronic cordero cath - Has grown pansensitive Klebsiella, pansensitive e. coli, and enterococcus in the past - will tx UTI with Q24 cefepime, s/p 1 dose CTX 05/21, - urine cx; pending #End-stage renal disease on hemodialysis TTSat - confirmed he had a full dialysis session tuesday on admission - Nephrology consulted - Continue chronic renal medications - monitor daily renal function and electrolytes #S/P AVR (aortic valve replacement) - Previous [facility] metallic AVR in 1995 - explains that they follow with Anticoagulation clinic for his INR monitoring/dosing - While INR goal for metallic aortic valve replacements is normally 2.5-3.5, his states that she has discussed this multiple times with the Anticoagulation specialist and they stressed that they prefer to keep hime between 2.0-3.0 - continue home dose warfarin - Monitor daily INR, will keep his goal between 2.0-3.0 as performed by his outpatient anticoagulation clinic #Pancytopenia - Currently stable - Has been a chronic issue thought to be due to multiple myeloma - He is status post previous stem cell transplant - He underwent bone marrow biopsy during his admission in March of this year, results were reported as "No morphologic evidence of myelodysplasia is seen" - Monitor daily CBC and monitor for bleeding #Paroxysmal atrial flutter - Currently in sinus rhythm per telemetry - Continue Warfarin and Metoprolol #Indwelling Cordero catheter present -Is followed outpatient by Urology and has his leg bag exchanged routinely -Will have his leg bag replaced by a larger bag on admission -Daily catheter care ordered DVT ppx; home warfarin (INR goal 2.0-3.0) Admission and Anticipated Discharge Date Admission Date: May 22, 2023 Supervising Physician Co-Signing Physician Notes Attending Physician Supervision Note: I independently interviewed and examined the patient and verified the taylor history and physical, reviewed labs and image studies and agree with findings and care plan noted above. Acute on chronic systolic CHF - Likely from poor water restriction. HD for fluid removal per nephro ESRD - nephro ordered spot dose HD today. UTI in setting of chronic indwelling cordero - started on IV cefepime. switch to ceftriaxone. Metabolic enephalopathy - resolved. 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 Today, pt states he is feeling "pretty good." When asked why he came into the hospital he states "I don't know" but then when asked about SOB he recalls having progressive SOB the last 2 weeks. He states his breathing feels great today. He recalls having some auditory and visual hallucinations that are now gone. He states he last went to dialysis on Tuesday with no issue that he can recall. Overall states he is feeling well today, no questions or complaints. States his symptoms have resolved and he feels back to his baseline this mo rning. Review of Systems Review of Systems: Per HPI. Physical Exam Physical Exam: General:Alert, pleasant, no acute distress, HEENT: Normocephalic, moist oral mucosa, Cardio: Regular rate and rhythm, systolic click noted from mechanical valve Resp:Lungs clear to auscultation b/l but breath sounds diminished somewhat in bilateral lung bases, no wheezes or rhonchi, GI: Soft and nontender, nondistended, bowel sounds active Skin: Warm, pink, dry, Results & Data Results & Data Vital Signs (Past 12 Hours) Vital Signs Temp Pulse Pulse Resp BP Pulse Ox O2 Del Method 05/23/23 00:00 Nasal Cannula 05/23/23 00:00 36.4 C L 67 24 142/63 H 96 Nasal Cannula 05/22/23 21:28 84 26 H 160/79 H 97 Nasal Cannula 05/22/23 21:24 Nasal Cannula 05/22/23 21:00 79 05/22/23 20:44 78 18 141/69 H 97 Nasal Cannula O2 Flow Rate 05/23/23 00:00 2 05/23/23 00:00 2 05/22/23 21:28 2 05/22/23 21:24 2 05/22/23 21:00 05/22/23 20:44 2 Resident Activity Tracking Resident Involvement: Resident Care Provided Care Provided: Adult Hospital Medicine
[2023-05-23] MEDS: SEVELAMER HCL 800 MG TABLET PO SCH (08:41)
[2023-05-23] MEDS: METOPROLOL TARTRATE 50 MG TAB PO SCH (08:42)
--- NOTE | 2023-05-23 09:25 | Nephrology Consultation ---
Date of Consultation May 23, 2023 Assessment & Plan (1) Acute exacerbation of CHF (congestive heart failure): * Clinically suspect that patient has lost lean body mass due to recurrent hospitalizations. Dialysis EDW may need to adjusted down. * Will provide HD today and attempt 2 L UF. Will use Crit Line monitor to help guide therapy * Will obtain CXR in am to reassess pleural effusions. If no change despite HD w/ UF may need to consider thoracentesis * Will order Bumex 1 mg po qAM to promote diuresis in between HD treatments. This was held in the past due to recurrent diarrhea with dehydration (2) ESRD (end stage renal disease) on dialysis: * [facility] 3hr 30min 3K 2.5Ca Na 137 HCO3 32 F-180NR Qb400/Qd800 EDW 62.5kg L BC AVG and R IJ TCC * Patient declines the use of AVG due to discomfort. R IJ TCC remains in place (3) Pancytopenia: * 04/08/23 bone marrow biopsy: 9% plasma cells and no evidence of myelodysplasia (4) UTI (urinary tract infection): * 05/22/23 urine culture is pending. Patient is on Cefepime therapy (5) Physical deconditioning: * Recommend starting PT History of Present Illness Reason for Consultation: ESKD-D Attending Physician: Eve Arndt MD History of Present Illness Mr. Londono is a 78 year old white male who is seen at the request of the [facility] hospitalist service for evaluation of dyspnea, bilateral pleural effusions, ESKD-D. Information for the HPI is obtained from patient interview and review of medical records and is summarized as follows: Mr. Londono was last hospitalized 04/01/23-04/18/23 for bibasilar pneumonia, INR 9, and pancytopenia. He was diagnosed w aspiration pneumonia and managed w/ antibiotic therapy. Bone marrow biopsy performed during that hospitalization revealed only 9% plasma cells and no evidence of myelodysplasia. Mr. Londono presented to the [facility] last evening for evaluation of progressive dyspnea. CXR revealed bilateral pleural effusions. He has been admitted to the hospitalist service for oxygen, diuretic therapy and treatment of a presumed UTI. Nephrology consultation has been requested to provide inpatient HD. Of note, Mr. Londono dialyzes TTS at [facility] (3hr 30min 3K 2.5Ca Na 137 HCO3 32 F-180NR Qb400/Qd800 EDW 62.5kg L BC AVG and R IJ T CC). He did dialyze Tuesday for his full treatment without complication and did attain his EDW of 62.5 kg. Mr. Londono does report that he still makes urine but has not been taking a diuretic as outpatient. PMH: ESKD due to recurrent ANDREA related to dehydration from recurrent diarrhea (improved w/ Imodium and Creon), multiple myeloma s/p autologous stem cell transplant 2014, paroxysmal atrial fibrillation, mechanical aortic valve replacement, HTN, dyslipidemia, elevated PSA and BPH. Allergies Allergy/AdvReac Type Severity Reaction Status Date / Time benzonatate Allergy Severe Hallucinati Unverified 05/06/23 15:00 [From Glenroy Billingsley] ng ASHLEY Inhibitors AdvReac Intermediate COUGH Verified 05/06/23 15:00 acetic acid AdvReac Intermediate Vinegar - Verified 05/06/23 15:00 Swelling of Lip/Tongue/Throat Home Medications Medication Instructions Recorded Confirmed Type metoprolol tartrate 50 mg tablet 50 mg PO BID #60 tabs 09/30/22 05/22/23 Rx cholecalciferol (vitamin D3) 50 2,000 mcg PO BID 11/15/22 05/22/23 History mcg (2,000 unit) capsule (Vitamin D3) sevelamer carbonate 800 mg tablet 800 mg PO TIDM 11/15/22 05/22/23 History vit B complx, C-iron 8 mg-folic 1 tab PO DAILY 01/01/23 05/22/23 History acid 800 mcg-D3 1,000 unit-zinc tablet (ProRenal) loperamide 2 mg capsule 2 mg PO Q3H PRN loose stool #30 01/07/23 05/22/23 Rx caps alprazolam 0.25 mg tablet (Xanax) 0.25 mg PO .COMPLEX #30 tabs 03/31/23 05/22/23 Rx amoxicillin 500 mg capsule 2,000 mg PO ONCE PRN dental 04/01/23 05/22/23 History appointment uxptha-knqyhtmi-nlaxvql 1 cap PO QID 04/01/23 05/22/23 History 36,000-114,000-180,000 unit capsule,delay rel (Creon) mirtazapine 15 mg tablet 7.5 mg (1/2 x 15 mg) PO HS #30 tabs 04/18/23 05/22/23 Rx polyethylene glycol 3350 17 gram 17 g PO DAILY PRN constipation #0 04/18/23 05/22/23 Rx oral powder packet (Miralax) ea warfarin 3 mg tablet 3 mg PO DAILY@1600 #20 tabs 04/18/23 05/22/23 Rx simvastatin 20 mg tablet 20 mg PO HS #90 tabs 05/17/23 05/22/23 Rx tamsulosin 0.4 mg capsule 0.4 mg PO HS #90 caps 05/17/23 05/22/23 Rx cyanocobalamin (vitamin B-12) 1,000 mcg IM MONTHLY 05/22/23 05/22/23 History 1,000 mcg/mL injection solution Patient History Medical History Indwelling Chandler catheter present Constipated Multiple myeloma in remission Normocytic normochromic anemia Cardiomyopathy Valvular heart disease Elevated INR Pulmonary edema Anemia Hypotension ESRD (end stage renal disease) Hemodialysis patient Tuesday//Tuesday [place] [place]. Depression Anxiety Chronic anticoagulation Paroxysmal atrial fibrillation managed with medication. no cardioversion. follows with Jm Mcgill Thrombocytopathia Hypocalcemia Chronic kidney disease Pancreatic lesion (benign) Hypokalemia Secondary hyperparathyroidism Diarrhea chronic Multiple myeloma dx 2013, treated with a stem cell transplant and chemotherapy. last chemo treatment in 2013. currently in remission. Hypertension Dyslipidemia Surgical History S/P AVR (aortic valve replacement) (~1995) with repair of the AAA that was incidentally found. History of cystoscopy History of ERCP pancreatic biopsy History of colonoscopy History of tonsillectomy Permanent central venous catheter in place (08/26/22) Insertion of Perm Catheter, Right Internal Jugular Approach, Ultrasound Localization of Right Interanl Jugular vein, Fluoroscopy for Positioning(R ight) - Ben Delgado DO H/O stem cell transplant Family History Mother Alzheimer disease Sister Breast cancer Father Myocardial infarction Denies family history of Ovarian cancer Prostate cancer Colorectal cancer Social History Smoking Status: Never smoker Second Hand Exposure: No; Do You Dip or Chew Tobacco: No; Hx Alcohol Use: No Hx Substance Use: No Preferred Language: [place] Islander Communication Ability: Effective Visual Impairment: No Limitations 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: No Beliefs That Will Affect Care: None marital status: Current Living Situation: Spouse Current Living Situation Comment: with current occupational status: employed 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 Other Information That Helps Us Care for You: No Feels Safe at Home: Yes Safety Concerns: Feels Safe At This Time Childhood Exposure to Second-Hand Smoke: No Diet: low salt Dental Care, Regularly: Yes Physical Activity Frequency: 1-2 Times per Week Physical Activity Frequency Comment: walk Seatbelt Use: always Sunscreen Use: Yes Assistive Devices: Glasses and Walker Review of Systems Constitutional: no fever Eyes: no problem reported Ear, Nose, Mouth, Throat: no problem reported Respiratory: no cough and no dyspnea Cardiovascular: no chest pain Gastrointestinal: no abdominal pain, no nausea, no vomiting and no diarrhea/loose stools Integumentary: no rash Neurologic: + generalized weakness Physical Exam Constitutional: + frail appearing Eyes: PERRL, conjunctivae normal, anicteric sclerae ENMT: external ear and nose normal, oropharynx normal Neck: trachea midline, no thyromegaly Respiratory: normal respiratory effort, lungs clear to auscultation Cardiovascular: Rate/Rhythm: + irregularly irregular Gastrointestinal (Abdomen): normal bowel sounds, soft, nontender, no hepatosplenomegaly Skin: no rashes, warm and dry Neurologic: Speech / Cognition: normal speech and normal cognition Psychiatric: Affect: euthymic affect Results & Data Vital Signs (Past 12 Hours) Vital Signs Temp Pulse Pulse Resp BP Pulse Ox O2 Del Method 05/23/23 08:31 Nasal Cannula 05/23/23 08:30 64 05/23/23 07:36 36.3 C L 68 18 153/58 H 92 Nasal Cannula 05/23/23 00:00 Nasal Cannula 05/23/23 00:00 36.4 C L 67 24 142/63 H 96 Nasal Cannula 05/22/23 21:28 84 26 H 160/79 H 97 Nasal Cannula 05/22/23 21:24 Nasal Cannula O2 Flow Rate 05/23/23 08:31 2 05/23/23 08:30 05/23/23 07:36 2 05/23/23 00:00 2 05/23/23 00:00 2 05/22/23 21:28 2 05/22/23 21:24 2 Laboratory Results Laboratory Results - last 24 hr 05/22/23 05/22/23 05/22/23 15:15 15:20 16:10 WBC 3.95 L RBC 2.70 L Hgb 8.4 L Hct 26.0 L MCV 96.3 MCH 31.1 MCHC 32.3 RDW Std Deviation 69.0 H RDW Coeff of Berto 19.8 H Plt Count 90 L MPV 12.4 Immature Gran % (Auto) 0.3 Neut % (Auto) 78.1 Lymph % (Auto) 13.9 [place] % (Auto) 6.6 Eos % (Auto) 0.3 Baso % (Auto) 0.8 Neut # (Auto) 3.09 Lymph # (Auto) 0.55 L [place] # (Auto) 0.26 Eos # (Auto) 0.01 Baso # (Auto) 0.03 Immature Gran # (Auto) 0.01 PT 17.4 H INR 1.6 H APTT 30 PTT Ratio 1.1 Sodium 135 L Potassium 4.1 Chloride 98 Carbon Dioxide 28 Anion Gap 9 BUN 17 Creatinine 3.18 H Est Cr Clr Drug Dosing 18.6 Est GFR ( Amer) 20.4 Est GFR (Non-Af Amer) 17.6 BUN/Creatinine Ratio 5.3 L Glucose 191 H Calcium 9.9 Magnesium 2.1 Total Bilirubin 0.7 AST 25 ALT 15 Alkaline Phosphatase 87 Troponin I High Sens 11.5 B-Natriuretic Peptide 3355 H Total Protein 7.6 Albumin 4.0 Globulin 3.6 Albumin/Globulin Ratio 1.1 Urine Color Yellow Urine Appearance Cloudy A Urine pH >= 9.0 H Ur Specific [place] 1.012 Urine Protein 3+ H Urine Glucose (UA) 1+ H Urine Ketones Negative Urine Blood Trace H Urine Nitrite Negative Urine Bilirubin Negative Urine Urobilinogen Negative Ur Leukocyte Esterase 3+ H Urine WBC (Auto) >30 H Urine RBC (Auto) 5-10 H U Hyaline Cast (Auto) 1-5 U Epithel Cells (Auto) 0-5 Urine Bacteria (Auto) 1+ H WBC Casts 1-5 H Urine Yeast Budding A Nasal Screen MRSA (PCR) Adenovirus (PCR) Not Detected B. pertussis DNA (PCR) Not Detected B.parapertussis DNA PCR Not Detected C. pneumoniae DNA (PCR) Not Detected Coronavirus OC43 (PCR) Not Detected Coronavirus HKU1 (PCR) Not Detected Coronavirus 229E (PCR) Not Detected SARS-CoV-2 (PCR) Not Detected Coronavirus NL63 (PCR) Not Detected Human Metapneumovir PCR Not Detected Influenza Type A (PCR) Not Detected Influenza Type B (PCR) Not Detected M. pneumoniae (PCR) Not Detected Parainfluenza 1 (PCR) Not Detected Parainfluenza 2 (PCR) Not Detected Parainfluenza 3 (PCR) Not Detected Parainfluenza 4 (PCR) Not Detected RSV (PCR) Not Detected Entero/Rhino (PCR) Not Detected 05/23/23 Unknown WBC RBC Hgb Hct MCV MCH MCHC RDW Std Deviation RDW Coeff of [place] Plt Count MPV Immature Gran % (Auto) Neut % (Auto) Lymph % (Auto) [place] % (Auto) Eos % (Auto) Baso % (Auto) Neut # (Auto) Lymph # (Auto) [place] # (Auto) Eos # (Auto) Baso # (Auto) Immature Gran # (Auto) PT INR APTT PTT Ratio Sodium Potassium Chloride Carbon Dioxide Anion Gap BUN Creatinine Est Cr Clr Drug Dosing Est GFR ( Amer) Est GFR (Non-Af Amer) BUN/Creatinine Ratio Glucose Calcium Magnesium Total Bilirubin AST ALT Alkaline Phosphatase Troponin I High Sens B-Natriuretic Peptide Total Protein Albumin Globulin Albumin/Globulin Ratio Urine Color Urine Appearance Urine pH Ur Specific [place] Urine Protein Urine Glucose (UA) Urine Ketones Urine Blood Urine Nitrite Urine Bilirubin Urine Urobilinogen Ur Leukocyte Esterase Urine WBC (Auto) Urine RBC (Auto) U Hyaline Cast (Auto) U Epithel Cells (Auto) Urine Bacteria (Auto) WBC Casts Urine Yeast Nasal Screen MRSA (PCR) Negative Adenovirus (PCR) B. pertussis DNA (PCR) B.parapertussis DNA PCR C. pneumoniae DNA (PCR) Coronavirus OC43 (PCR) Coronavirus HKU1 (PCR) Coronavirus 229E (PCR) SARS-CoV-2 (PCR) Coronavirus NL63 (PCR) Human Metapneumovir PCR Influenza Type A (PCR) Influenza Type B (PCR) M. pneumoniae (PCR) Parainfluenza 1 (PCR) Parainfluenza 2 (PCR) Parainfluenza 3 (PCR) Parainfluenza 4 (PCR) RSV (PCR) Entero/Rhino (PCR) Diagnostic Findings 05/22/23 CXR: A right internal jugular central venous infusion port and a right internal jugular central venous catheter are unchanged in position. The patient is status post midline sternotomy. The heart is enlarged nothing atherosclerotic calcification of the thoracic aorta. There is pulmonary vascular congestion. There are layering pleural effusions with dependent consolidation. No pneumothorax is seen. The skeletal structures are osteopenic. There are chronic/healed left-sided rib fractures. PG Care Time/CCT Total # of Minutes Spent Total Time Spent with Patient: Total time spent is greater than 50% in coordination of care (as documented) at patient's floor/unit and/or counseling patient: Coding Level of Care Code 17746 IN/OBS CONSULT LVL 5,80M Diagnoses Acute exacerbation of CHF (congestive heart failure) I50.9 ESRD (end stage renal disease) on dialysis N18.6; Z99.2 Pancytopenia D61.818 UTI (urinary tract infection) N39.0 Physical deconditioning R53.81
[2023-05-23] MEDS ORDERED: SODIUM CHLORIDE 0.9% 1,000 ML IV PRN (09:47)
--- NOTE | 2023-05-23 10:58 | Dialysis Progress Note ---
Date of Service May 23, 2023 Assessment & Plan (1) Acute exacerbation of CHF (congestive heart failure): Plan: * Clinically suspect that patient has lost lean body mass due to recurrent hospitalizations. Dialysis EDW may need to adjusted down. * No change to current HD treatment. Will attempt 2 L UF. Will use Crit Line monitor to help guide therapy * Will obtain CXR in am to reassess pleural effusions. If no change despite HD w/ UF may need to consider thoracentesis * Will order Bumex 1 mg po qAM to promote diuresis in between HD treatments. This was held in the past due to recurrent diarrhea with dehydration (2) ESRD (end stage renal disease) on dialysis: Plan: * [facility] 3hr 30min 3K 2.5Ca Na 137 HCO3 32 F-180NR Qb400/Qd800 EDW 62.5kg L BC AVG and R IJ TCC * Patient declines the use of AVG due to discomfort. R IJ TCC remains in place (3) Pancytopenia: Plan: * 04/08/23 bone marrow biopsy: 9% plasma cells and no evidence of myelodysplasia (4) UTI (urinary tract infection): Plan: * 05/22/23 urine culture is pending. Patient is on Cefepime therapy (5) Physical deconditioning: Plan: * Recommend starting PT Admission and Anticipated Discharge Date Admission Date: May 22, 2023 Subjective Mr. Londono was evaluated while on HD. He currently denies fever, productive cough or angina. He is breathing comfortably on O2 at 2 L/min NC. IJ TCC is running A-->A at Qb 300 cc/min Review of Systems Constitutional: no fever Eyes: no problem reported Ear, Nose, Mouth, Throat: no problem reported Respiratory: no cough and no dyspnea Cardiovascular: no chest pain Gastrointestinal: no abdominal pain, no nausea, no vomiting and no diarrhea/loose stools Integumentary: no rash Neurologic: + generalized weakness Physical Exam Constitutional: + frail appearing Eyes: PERRL, conjunctivae normal, anicteric sclerae ENMT: external ear and nose normal, oropharynx normal Neck: trachea midline, no thyromegaly Respiratory: normal respiratory effort, lungs clear to auscultation Cardiovascular: Rate/Rhythm: + irregularly irregular Gastrointestinal (Abdomen): normal bowel sounds, soft, nontender, no hepatosplenomegaly Skin: no rashes, warm and dry Neurologic: Speech / Cognition: normal speech and normal cognition Psychiatric: Affect: euthymic affect Results & Data Vital Signs (Past 12 Hours) Vital Signs Temp Pulse Pulse Resp BP Pulse Ox O2 Del Method 05/23/23 08:31 Nasal Cannula 05/23/23 08:30 64 05/23/23 07:36 36.3 C L 68 18 153/58 H 92 Nasal Cannula 05/23/23 00:00 Nasal Cannula 05/23/23 00:00 36.4 C L 67 24 142/63 H 96 Nasal Cannula O2 Flow Rate 05/23/23 08:31 2 05/23/23 08:30 05/23/23 07:36 2 05/23/23 00:00 2 05/23/23 00:00 2 Laboratory Results Laboratory Results - last 24 hr 05/22/23 05/22/23 05/22/23 15:15 15:20 16:10 WBC 3.95 L RBC 2.70 L Hgb 8.4 L Hct 26.0 L MCV 96.3 MCH 31.1 MCHC 32.3 RDW Std Deviation 69.0 H RDW Coeff of Berto 19.8 H Plt Count 90 L MPV 12.4 Immature Gran % (Auto) 0.3 Neut % (Auto) 78.1 Lymph % (Auto) 13.9 [place] % (Auto) 6.6 Eos % (Auto) 0.3 Baso % (Auto) 0.8 Neut # (Auto) 3.09 Lymph # (Auto) 0.55 L [place] # (Auto) 0.26 Eos # (Auto) 0.01 Baso # (Auto) 0.03 Immature Gran # (Auto) 0.01 PT 17.4 H INR 1.6 H APTT 30 PTT Ratio 1.1 Sodium 135 L Potassium 4.1 Chloride 98 Carbon Dioxide 28 Anion Gap 9 BUN 17 Creatinine 3.18 H Est Cr Clr Drug Dosing 18.6 Est GFR ( Amer) 20.4 Est GFR (Non-Af Amer) 17.6 BUN/Creatinine Ratio 5.3 L Glucose 191 H Calcium 9.9 Magnesium 2.1 Total Bilirubin 0.7 AST 25 ALT 15 Alkaline Phosphatase 87 Troponin I High Sens 11.5 B-Natriuretic Peptide 3355 H Total Protein 7.6 Albumin 4.0 Globulin 3.6 Albumin/Globulin Ratio 1.1 Urine Color Yellow Urine Appearance Cloudy A Urine pH >= 9.0 H Ur Specific [place] 1.012 Urine Protein 3+ H Urine Glucose (UA) 1+ H Urine Ketones Negative Urine Blood Trace H Urine Nitrite Negative Urine Bilirubin Negative Urine Urobilinogen Negative Ur Leukocyte Esterase 3+ H Urine WBC (Auto) >30 H Urine RBC (Auto) 5-10 H U Hyaline Cast (Auto) 1-5 U Epithel Cells (Auto) 0-5 Urine Bacteria (Auto) 1+ H WBC Casts 1-5 H Urine Yeast Budding A Nasal Screen MRSA (PCR) Adenovirus (PCR) Not Detected B. pertussis DNA (PCR) Not Detected B.parapertussis DNA PCR Not Detected C. pneumoniae DNA (PCR) Not Detected Coronavirus OC43 (PCR) Not Detected Coronavirus HKU1 (PCR) Not Detected Coronavirus 229E (PCR) Not Detected SARS-CoV-2 (PCR) Not Detected Coronavirus NL63 (PCR) Not Detected Human Metapneumovir PCR Not Detected Influenza Type A (PCR) Not Detected Influenza Type B (PCR) Not Detected M. pneumoniae (PCR) Not Detected Parainfluenza 1 (PCR) Not Detected Parainfluenza 2 (PCR) Not Detected Parainfluenza 3 (PCR) Not Detected Parainfluenza 4 (PCR) Not Detected RSV (PCR) Not Detected Entero/Rhino (PCR) Not Detected 05/23/23 Unknown WBC RBC Hgb Hct MCV MCH MCHC RDW Std Deviation RDW Coeff of Berto Plt Count MPV Immature Gran % (Auto) Neut % (Auto) Lymph % (Auto) [place] % (Auto) Eos % (Auto) Baso % (Auto) Neut # (Auto) Lymph # (Auto) [place] # (Auto) Eos # (Auto) Baso # (Auto) Immature Gran # (Auto) PT INR APTT PTT Ratio Sodium Potassium Chloride Carbon Dioxide Anion Gap BUN Creatinine Est Cr Clr Drug Dosing Est GFR ( Amer) Est GFR (Non-Af Amer) BUN/Creatinine Ratio Glucose Calcium Magnesium Total Bilirubin AST ALT Alkaline Phosphatase Troponin I High Sens B-Natriuretic Peptide Total Protein Albumin Globulin Albumin/Globulin Ratio Urine Color Urine Appearance Urine pH Ur Specific [place] Urine Protein Urine Glucose (UA) Urine Ketones Urine Blood Urine Nitrite Urine Bilirubin Urine Urobilinogen Ur Leukocyte Esterase Urine WBC (Auto) Urine RBC (Auto) U Hyaline Cast (Auto) U Epithel Cells (Auto) Urine Bacteria (Auto) WBC Casts Urine Yeast Nasal Screen MRSA (PCR) Negative Adenovirus (PCR) B. pertussis DNA (PCR) B.parapertussis DNA PCR C. pneumoniae DNA (PCR) Coronavirus OC43 (PCR) Coronavirus HKU1 (PCR) Coronavirus 229E (PCR) SARS-CoV-2 (PCR) Coronavirus NL63 (PCR) Human Metapneumovir PCR Influenza Type A (PCR) Influenza Type B (PCR) M. pneumoniae (PCR) Parainfluenza 1 (PCR) Parainfluenza 2 (PCR) Parainfluenza 3 (PCR) Parainfluenza 4 (PCR) RSV (PCR) Entero/Rhino (PCR) [facility] Procedure Codes (Charges) Renal/Urologic Renal/Urologic: 19656 Hemodialysis, One Evaluation Coding Level of Care Code None Diagnoses Acute exacerbation of CHF (congestive heart failure) I50.9 ESRD (end stage renal disease) on dialysis N18.6; Z99.2 Pancytopenia D61.818 UTI (urinary tract infection) N39.0 Physical deconditioning R53.81 CPT Codes Renal/Urologic - Renal/Urologic: 00618 Hemodialysis, One Evaluation ([id number])
[2023-05-23 11:15] LABS: Hematocrit (blood only) 25.7 % (42.0-52.0); Hemoglobin 8.2 g/dl (14.0-18.0); Mean Corpuscular Hemoglobin 31.2 pg (25.0-34.0); Mean Corpuscular Hgb Conc 31.9 g/dL (32.0-36.0); Mean Corpuscular Volume 97.7 fL (80.0-100.0); Platelet Count 84 K/uL (130-400); RDW Coefficient of Variation 20.1 % (11.5-14.5); RDW Standard Deviation 70.9 fL (36.4-46.3); Red Blood Count 2.63 M/uL (4.70-6.10); White Blood Count 3.67 K/ul (4.8-10.8)
[2023-05-23 11:16] LABS: Basophils # (auto) 0.01 K/uL (0.00-0.20); Basophils % (auto) 0.3 %; Eosinophils # (auto) 0.02 K/uL (0.00-0.50); Eosinophils % (auto) 0.5 %; Immature Granulocytes # (auto) 0.02 K/uL (0.01-0.20); Immature Granulocytes % (auto) 0.5 %; Lymphocytes % (auto) 16.3 %; Mean Platelet Volume 12.9 fL (9.4-12.4); Monocytes # (auto) 0.22 K/uL (0.11-0.59); Neutrophils % (auto) 76.4 %
[2023-05-23 11:26] LABS: BUN Creatinine Ratio 6.3 (10-20); Calcium 9.3 mg/dl (8.6-10.3); Creatinine Clr Calc Pharmacy 13.4 ml/min; Est GFR (African American) 15.5 ml/min; Est GFR (Non-African American) 13.4 ml/min; Magnesium 2.1 mg/dl (1.7-2.4); Phosphorus 4.9 mg/dl (2.5-4.9); Potassium 4.1 mmol/L (3.5-5.1)
[2023-05-23 11:29] LABS: INR 2.2 (0.9-1.1)
[2023-05-23 11:39] LABS: Anisocytosis Present; Ovalocytes 1+; Polychromasia 1+
[2023-05-23] MEDS: EPOETIN ALFA 10,000 UNITS/ML VIAL IV ONE (14:04)
[2023-05-23] MEDS: BUMETANIDE 1 MG TAB PO SCH (14:23)
[2023-05-23] MEDS: WARFARIN SOD 3 MG TAB PO SCH (16:30)
[2023-05-23] MEDS: CEFEPIME 1,000 MG in SYRINGE 0 ML IV SCH (17:09)
--- NOTE | 2023-05-24 06:41 | Hospitalist Progress Note ---
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 Today, awaiting further nephro recs. Pending PT/OT eval. Urine cx + for E faecalis so switched cefepime to ampicillin. #Acute on chronic HFrEF exac, improved - had progressive SOB over last 2 weeks, not on home diuresis since pt on dialysis - CXR on admission showed cardiomegaly + signs of CHF and dependent pleural effusions, likely secondary to CHF exac/ volume overload although if effusions worsen can consider thoracentesis - S/P 80 mg IV lasix in the ED, patient does make urine - symptoms have improved - monitor weights daily, - nephrology consulted; appreciate diuresis recs #Metabolic encephalopathy, improved - Patient has been experiencing intermittent episodes of auditory and visual hallucinations on admission that have since resolved - CT head is negative for acute findings of the brain - VBG is WNL, renal function and BUN are stable, patient does appear to have a UTI with UA consistent with infection, UTI most likely cause of delirium - symptoms have improved, no more hallucinations noted by pt - awaiting blood cx; pending but neg at 24 hrs #UTI (urinary tract infection) - UTI noted on UA on admission, pt has chronic cordero cath - Has grown pansensitive Klebsiella, pansensitive e. coli, and enterococcus in the past - will tx UTI with Q24 cefepime, s/p 1 dose CTX 05/21, - urine cx; E faecalis, so ABs switched from cefepime to ampicillin #End-stage renal disease on hemodialysis TTSat - confirmed he had a full dialysis session Saturday on admission - Nephrology consulted; appreciate dialysis recs - Continue chronic renal medications - monitor daily renal function and electrolytes #S/P AVR (aortic valve replacement) - Previous [facility] metallic AVR in 1995 - explains that they follow with Anticoagulation clinic for his INR monitoring/dosing - While INR goal for metallic aortic valve replacements is normally 2.5-3.5, his states that she has discussed this multiple times with the Anticoagulation specialist and they stressed that they prefer to keep hime between 2.0-3.0 - continue home dose warfarin - Monitor daily INR, will keep his goal between 2.0-3.0 as performed by his outpatient anticoagulation clinic #Pancytopenia - Currently stable - Has been a chronic issue thought to be due to multiple myeloma - He is status post previous stem cell transplant - He underwent bone marrow biopsy during his admission in March of this year, results were reported as "No morphologic evidence of myelodysplasia is seen" - Monitor daily CBC and monitor for bleeding #Paroxysmal atrial flutter - Continue Warfarin and Metoprolol #Indwelling Cordero catheter present -Is followed outpatient by Urology and has his leg bag exchanged routinely -Will have his leg bag replaced by a larger bag on admission -Daily catheter care ordered DVT ppx; home warfarin (INR goal 2.0-3.0) Admission and Anticipated Discharge Date Admission Date: May 22, 2023 Supervising Physician Co-Signing Physician Notes Attending Physician Supervision Note: I independently interviewed and examined the patient and verified the taylor history and physical, reviewed labs and image studies and agree with findings and care plan noted above. Acute on chronic systolic CHF - Likely from poor water restriction. -HD for fluid removal per nephro. -Continue Bumex 1 mg po qAM to promote diuresis in between HD treatments. This was held in the past due to recurrent diarrhea with dehydration ESRD - nephro ordered spot dose HD today. UTI in setting of chronic indwelling cordero - started on IV cefepime. switch to ceftriaxone. Metabolic encephalopathy - resolved. 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 Today, pt states he is feeling okay, back to his baseline for breathing. He has no questions or complaints at this point in time, just wondering about the plan today. Review of Systems Review of Systems: Per HPI. Physical Exam Physical Exam: General:Alert, pleasant, no acute distress, HEENT: Normocephalic, moist oral mucosa, Cardio: Irregularly irregular rhythm, systolic click noted from mechanical valve Resp:Lungs clear to auscultation b/l but breath sounds diminished somewhat in bilateral lung bases, no wheezes or rhonchi, GI: Soft and nontender, nondistended, bowel sounds active Skin: Warm, pink, dry Results & Data Results & Data Vital Signs (Past 12 Hours) Vital Signs Temp Pulse Pulse Resp BP Pulse Ox O2 Del Method 05/24/23 03:08 36.6 C 64 18 128/56 L 93 Nasal Cannula 05/24/23 00:03 Room Air 05/23/23 23:57 36.3 C L 78 18 136/62 92 Room Air 05/23/23 23:44 60 05/23/23 23:44 Nasal Cannula 05/23/23 20:23 36.4 C L 81 20 121/63 94 Nasal Cannula O2 Flow Rate 05/24/23 03:08 2 05/24/23 00:03 2 05/23/23 23:57 05/23/23 23:44 05/23/23 23:44 2 05/23/23 20:23 2 Resident Activity Tracking Resident Involvement: Resident Care Provided Care Provided: Adult Hospital Medicine
[2023-05-24] MEDS ORDERED: SODIUM CHLORIDE 0.9% 1,000 ML IV PRN (07:00)
[2023-05-24 07:37] LABS: Basophils # (auto) 0.06 K/uL (0.00-0.20); Basophils % (auto) 1.9 %; Eosinophils # (auto) 0.15 K/uL (0.00-0.50); Eosinophils % (auto) 4.6 %; Immature Granulocytes # (auto) 0.01 K/uL (0.01-0.20); Immature Granulocytes % (auto) 0.3 %; Lymphocytes % (auto) 21.6 %; Mean Corpuscular Hemoglobin 30.7 pg (25.0-34.0); Mean Corpuscular Hgb Conc 30.8 g/dL (32.0-36.0); Mean Corpuscular Volume 99.6 fL (80.0-100.0); Mean Platelet Volume 12.6 fL (9.4-12.4); Monocytes % (auto) 9.3 %; Neutrophils # (auto) 2.02 K/uL (1.40-6.50); Neutrophils % (auto) 62.3 %; Platelet Count 82 K/uL (130-400); RDW Coefficient of Variation 20.4 % (11.5-14.5); RDW Standard Deviation 73.9 fL (36.4-46.3); Red Blood Count 2.61 M/uL (4.70-6.10); White Blood Count 3.24 K/ul (4.8-10.8)
--- NOTE | 2023-05-24 07:41 | XRay Report ---
XR chest 1V portable CLINICAL HISTORY: CHF TECHNIQUE: Single frontal radiograph of the chest was obtained. Comparison: Comparison is made to chest radiograph 05/22/2023 FINDINGS: Lines and tubes are stable. Cardiomegaly is noted. The aortic arch is calcified. Bilateral lower lung predominant airspace opacities are seen. Small bilateral pleural effusions. IMPRESSION: Small bilateral pleural effusions with underlying atelectasis. Superimposed aspiration/pneumonia sherman ot be excluded. Stable cardiomegaly. ACT 112: Negative or not required by law. Electronically signed by: Jacob Moreira M.D. 05/24/2023 7:40 AM
[2023-05-24 08:09] LABS: Anisocytosis Present; Polychromasia 1+
[2023-05-24 08:15] LABS: INR 2.2 (0.9-1.1); Prothrombin Time 23.2 Seconds (9.0-12.0)
[2023-05-24 08:39] LABS: Calcium 9.2 mg/dl (8.6-10.3); Potassium 3.6 mmol/L (3.5-5.1)
[2023-05-24 08:49] LABS: Creatinine Clr Calc Pharmacy 16.8 ml/min; Est GFR (African American) 20.6 ml/min; Est GFR (Non-African American) 17.7 ml/min; Phosphorus 3.6 mg/dl (2.5-4.9)
--- NOTE | 2023-05-24 08:55 | Nephrology Progress Note ---
Date of Service May 24, 2023 Assessment & Plan (1) Acute exacerbation of CHF (congestive heart failure): Plan: * Clinically suspect that patient has lost lean body mass due to recurrent hospitalizations. Dialysis EDW may need to adjusted down. * 05/24/23 CXR: Pleural effusions are now small but patient does have underlying atelectasis and possible superimposed aspiration pneumonia * Will provide HD today and attempt additional 2 L UF * Will check weight in am to establish new EDW * UO 75 cc yesterday. Continue Bumex 1 mg po qAM to promote diuresis in between HD treatments. This was held in the past due to recurrent diarrhea with dehydration * Wean O2 to off keeping SaO2 > 92% (2) ESRD (end stage renal disease) on dialysis: Plan: * [facility] 3hr 30min 3K 2.5Ca Na 137 HCO3 32 F-180NR Qb400/Qd800 EDW 62.5kg L BC AVG and R IJ TCC * Patient declines the use of AVG due to discomfort. R IJ TCC remains in place (3) Pancytopenia: Plan: * 04/08/23 bone marrow biopsy: 9% plasma cells and no evidence of myelodysplasia (4) UTI (urinary tract infection): Plan: * 05/22/23 urine culture is positive for enterococcus faecalis. Recommend transition to oral Ampicillin or Ciprofloxacin and change out urinary catheter (5) Physical deconditioning: Plan: * Recommend starting PT Admission and Anticipated Discharge Date Admission Date: May 22, 2023 Subjective Mr. Londono was evaluated in his hospital room this morning. He was dialyzed yesterday for 2.5 L UF. He reports no complications. Breathing is subjectively improved. SaO2 is 100% on O2 at 2 L/min NC. Review of Systems Constitutional: no fever Eyes: no problem reported Ear, Nose, Mouth, Throat: no problem reported Respiratory: no cough and no dyspnea Cardiovascular: no chest pain Gastrointestinal: no abdominal pain, no nausea, no vomiting and no diarrhea/loose stools Integumentary: no rash Neurologic: + generalized weakness Physical Exam Constitutional: + frail appearing Eyes: PERRL, conjunctivae normal, anicteric sclerae ENMT: external ear and nose normal, oropharynx normal Neck: trachea midline, no thyromegaly Respiratory: normal respiratory effort, lungs clear to auscultation Cardiovascular: Rate/Rhythm: + irregularly irregular Gastrointestinal (Abdomen): normal bowel sounds, soft, nontender, no hepatosplenomegaly Skin: no rashes, warm and dry Neurologic: Speech / Cognition: normal speech and normal cognition Psychiatric: Affect: euthymic affect Results & Data Vital Signs (Past 12 Hours) Vital Signs Temp Pulse Pulse Resp BP Pulse Ox O2 Del Method 05/24/23 07:39 63 05/24/23 07:36 36.4 C L 62 20 150/62 H 100 Nasal Cannula 05/24/23 07:22 Nasal Cannula 05/24/23 03:08 36.6 C 64 18 128/56 L 93 Nasal Cannula 05/24/23 00:03 Room Air 05/23/23 23:57 36.3 C L 78 18 136/62 92 Room Air 05/23/23 23:44 60 05/23/23 23:44 Nasal Cannula O2 Flow Rate 05/24/23 07:39 05/24/23 07:36 2 05/24/23 07:22 2 05/24/23 03:08 2 05/24/23 00:03 2 05/23/23 23:57 05/23/23 23:44 05/23/23 23:44 2 Laboratory Results Laboratory Results - last 24 hr 05/23/23 05/24/23 09:45 06:59 WBC 3.67 L 3.24 L RBC 2.63 L 2.61 L Hgb 8.2 L 8.0 L Hct 25.7 L 26.0 L MCV 97.7 99.6 MCH 31.2 30.7 MCHC 31.9 L 30.8 L RDW Std Deviation 70.9 H 73.9 H RDW Coeff of Berto 20.1 H 20.4 H Plt Count 84 L 82 L MPV 12.9 H 12.6 H Immature Gran % (Auto) 0.5 0.3 Neut % (Auto) 76.4 62.3 Lymph % (Auto) 16.3 21.6 Roberts % (Auto) 6.0 9.3 Eos % (Auto) 0.5 4.6 Baso % (Auto) 0.3 1.9 Neut # (Auto) 2.80 2.02 Lymph # (Auto) 0.60 L 0.70 L Roberts # (Auto) 0.22 0.30 Eos # (Auto) 0.02 0.15 Baso # (Auto) 0.01 0.06 Immature Gran # (Auto) 0.02 0.01 Polychromasia 1+ 1+ Anisocytosis Present Present Ovalocytes 1+ PT 23.0 H 23.2 H INR 2.2 H 2.2 H Sodium 137 140 Potassium 4.1 3.6 Chloride 100 106 Carbon Dioxide 29 27 Anion Gap 8 7 BUN 25 H 19 Creatinine 3.98 H D 3.16 H D Est Cr Clr Drug Dosing 13.4 16.8 Est GFR ( Amer) 15.5 20.6 Est GFR (Non-Af Amer) 13.4 17.7 BUN/Creatinine Ratio 6.3 L 6.0 L Glucose 153 H 94 Calcium 9.3 9.2 Phosphorus 4.9 3.6 D Magnesium 2.1 2.0 PG Care Time/CCT Total # of Minutes Spent Total Time Spent with Patient: Total time spent is greater than 50% in coordination of care (as documented) at patient's floor/unit and/or counseling patient: Coding Level of Care Code 33477 SUB INP/OBS CARE 3/50MIN Diagnoses Acute exacerbation of CHF (congestive heart failure) I50.9 ESRD (end stage renal disease) on dialysis N18.6; Z99.2 Pancytopenia D61.818 UTI (urinary tract infection) N39.0 Physical deconditioning R53.81
[2023-05-24] MEDS: EPOETIN ALFA 10,000 UNITS/ML VIAL IV SCH (10:15)
--- NOTE | 2023-05-24 15:06 | Communication Note ---
Date of Service: May 24, 2023 Called pt's to give her an update for his course. Answered questions about his current conditions of HF with acute exac, ESRD on dialysis with session yesterday and today, and current UTI with change in his ABs today for coverage of current causative microbe. Per chart, cordero was changed out on 05/21. noted on Tuesday that he had an episode of choking on his sevelamer pill and he has had issues with choking on this pill and any large pills the last few weeks that seemed to exac all of this episode to the hospital. Will consult speech. Did have speech consult in Mar 2023 but with ongoing concern will reevaluate.
[2023-05-24] MEDS: AMPICILLIN 2,000 MG in SODIUM CHLOR 0.9% MINI-B 100 ML IV SCH (16:28)
[2023-05-24] MEDS ORDERED: AMPICILLIN 1,000 MG in SODIUM CHLOR 0.9% MINI-B 100 ML IV SCH (17:00)
--- NOTE | 2023-05-25 06:47 | Hospitalist Progress Note ---
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 Plan for dialysis tomorrow and will do CXR after dialysis to monitor resolution/improvement of pulm edema. IV antibiotics today, may switch to po tomorrow. Continue bumex on nondialysis days per nephro. #Acute on chronic HFrEF exac, improved - had progressive SOB over last 2 weeks, not on home diuresis since pt on dialysis - CXR on admission showed cardiomegaly + signs of CHF and dependent pleural effusions, likely secondary to CHF exac/ volume overload although if effusions worsen can consider thoracentesis - S/P 80 mg IV lasix in the ED, patient does make urine - symptoms of SOB have improved since diuresis - monitor weights daily, - nephrology consulted; bumex on nondialysis days #UTI (urinary tract infection) - UTI noted on UA on admission, pt has chronic cordero cath - Has grown pansensitive Klebsiella, pansensitive e. coli, and enterococcus in the past - will tx UTI with Q24 cefepime, s/p 1 dose CTX 05/21, - urine cx; E faecalis, so ABs switched from cefepime to ampicillin on 05/23, #End-stage renal disease on hemodialysis TTSat - confirmed he had a full dialysis session Tuesday on admission - Nephrology consulted; appreciate dialysis recs - Continue chronic renal medications - monitor daily renal function and electrolytes #Dysphagia, chronic - evaluated by speech in Mar 2023 - seen again this admission for issues noted with swallowing large pills - speech notes he is about the same, as risk for microaspiration with thin liquids and gave recommendations to him to help with swallowing larger pills #Metabolic encephalopathy, resolved - Patient has been experiencing intermittent episodes of auditory and visual hallucinations on admission that have since resolved - CT head is negative for acute findings of the brain - VBG is WNL, renal function and BUN are stable, patient does appear to have a UTI with UA consistent with infection, UTI most likely cause of delirium - symptoms have improved, no more hallucinations noted by pt - awaiting blood cx; pending but neg at 48 hrs #S/P AVR (aortic valve replacement) - Previous [facility] metallic AVR in 1995 - explains that they follow with Anticoagulation clinic for his INR monitoring/dosing - While INR goal for metallic aortic valve replacements is normally 2.5-3.5, his states that she has discussed this multiple times with the Anticoagulation specialist and they stressed that they prefer to keep hime between 2.0-3.0 - continue home dose warfarin - Monitor daily INR, will keep his goal between 2.0-3.0 as performed by his outpatient anticoagulation clinic #Pancytopenia - Currently stable - Has been a chronic issue thought to be due to multiple myeloma - He is status post previous stem cell transplant - He underwent bone marrow biopsy during his admission in March of this year, results were reported as "No morphologic evidence of myelodysplasia is seen" - anemia may be secondary to ESRD, will give IV iron 4/3 per nephro - Monitor daily CBC and monitor for bleeding #Paroxysmal atrial flutter - Continue Warfarin and Metoprolol #Indwelling Cordero catheter present -Is followed outpatient by Urology and has his leg bag exchanged routinely -Will have his leg bag replaced by a larger bag on admission -Daily catheter care ordered DVT ppx; home warfarin (INR goal 2.0-3.0) Admission and Anticipated Discharge Date Admission Date: May 22, 2023 Supervising Physician Co-Signing Physician Notes Attending Physician Supervision Note: I independently interviewed and examined the patient and verified the taylor history and physical, reviewed labs and image studies and agree with findings and care plan noted above. Acute on chronic systolic CHF - Likely from poor water restriction. -HD for fluid removal per nephro. -Continue Bumex 1 mg po qAM to promote diuresis in between HD treatments. 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 - upset about limited diet from - would like to switch to regular diet to help with improving calorie intake. -diet changed. -Brought up goal of care - to consider further discussion through rest of hospital stay and later. Atelectasis - Add Incentive spirometer Concern of aspiration - no fever, normal wbc, no cough - no concern of pneumonia. speech therapy note reviewed. Bilateral pleural effusion - improving. Now off O2. Pancytopenia - s/p bone marrow biopsy with no myelodysplasia. Metabolic encephalopathy - resolved. 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 Today, pt states he is feeling okay this morning, no issues from his standpoint. He is comfortable at this time. He states he believes his will be in later today. No questions or complaints at this point in time. Tolerating food and drink with no issues. Review of Systems Review of Systems: Per HPI. Physical Exam Physical Exam: General:Alert, pleasant, no acute distress, HEENT: Normocephalic, moist oral mucosa, Cardio: Irregularly irregular rhythm, systolic click noted from mechanical valve Resp:Lungs clear to auscultation b/l but breath sounds diminished somewhat in bilateral lung bases, no wheezes or rhonchi, GI: Soft and nontender, nondistended, bowel sounds active Skin: Warm, pink, dry Results & Data Results & Data Vital Signs (Past 12 Hours) Vital Signs Temp Pulse Pulse Resp BP Pulse Ox O2 Del Method 05/25/23 03:10 36.6 C 76 20 115/78 93 Nasal Cannula 05/25/23 00:45 60 05/24/23 23:33 36.6 C 56 L 18 122/49 L 92 Nasal Cannula 05/24/23 21:48 Nasal Cannula 05/24/23 19:42 36.6 C 71 18 155/54 H 99 Nasal Cannula O2 Flow Rate 05/25/23 03:10 2 05/25/23 00:45 05/24/23 23:33 2 05/24/23 21:48 2 05/24/23 19:42 2 Resident Activity Tracking Resident Involvement: Resident Care Provided Care Provided: Adult [facility]
[2023-05-25 07:34] LABS: Hematocrit (blood only) 24.9 % (42.0-52.0); Hemoglobin 7.8 g/dl (14.0-18.0); Mean Corpuscular Hemoglobin 30.7 pg (25.0-34.0); Mean Corpuscular Hgb Conc 31.3 g/dL (32.0-36.0); Mean Platelet Volume 11.3 fL (9.4-12.4); Platelet Count 67 K/uL (130-400); RDW Coefficient of Variation 20.4 % (11.5-14.5); Red Blood Count 2.54 M/uL (4.70-6.10); White Blood Count 3.78 K/ul (4.8-10.8)
[2023-05-25 07:36] LABS: INR 2.3 (0.9-1.1); Prothrombin Time 23.7 Seconds (9.0-12.0)
[2023-05-25 07:40] LABS: Anisocytosis Present; Basophils # (auto) 0.05 K/uL (0.00-0.20); Basophils % (auto) 1.3 %; Eosinophils # (auto) 0.27 K/uL (0.00-0.50); Eosinophils % (auto) 7.1 %; Immature Granulocytes # (auto) 0.03 K/uL (0.01-0.20); Immature Granulocytes % (auto) 0.8 %; Lymphocytes # (auto) 0.72 K/uL (1.20-3.40); Monocytes # (auto) 0.38 K/uL (0.11-0.59); Monocytes % (auto) 10.1 %; Neutrophils # (auto) 2.33 K/uL (1.40-6.50); Neutrophils % (auto) 61.7 %; Polychromasia 1+
[2023-05-25 08:26] LABS: BUN Creatinine Ratio 5.7 (10-20); Calcium 8.5 mg/dl (8.6-10.3); Creatinine Clr Calc Pharmacy 16.7 ml/min; Est GFR (African American) 20.5 ml/min; Est GFR (Non-African American) 17.7 ml/min; Magnesium 1.9 mg/dl (1.7-2.4); Phosphorus 2.7 mg/dl (2.5-4.9); Potassium 3.5 mmol/L (3.5-5.1)
[2023-05-25 08:46] LABS: Ferritin 854.4 ng/ml (8-388)
--- NOTE | 2023-05-25 08:48 | Nephrology Progress Note ---
Date of Service May 25, 2023 Assessment & Plan (1) Acute exacerbation of CHF (congestive heart failure): Plan: * Clinically suspect that patient has lost lean body mass due to recurrent hospitalizations. Dialysis EDW may need to adjusted down * HD completed yesterday for additional 2.4 L UF. Weight has dropped from 69 to 62.4 kg this hospitalization * 05/24/23 CXR: Pleural effusions are now small but patient does have underlying atelectasis and possible superimposed aspiration pneumonia. On exam this morning, breath sounds are diminished at the bases. Will order follow up CXR * UO 75 cc yesterday. Continue Bumex 1 mg po qAM to promote diuresis in between HD treatments. This was held in the past due to recurrent diarrhea with dehydration * Wean O2 to off keeping SaO2 > 92% (2) ESRD (end stage renal disease) on dialysis: Plan: * [facility] 3hr 30min 3K 2.5Ca Na 137 HCO3 32 F-180NR Qb400/Qd800 EDW 62.5kg L BC AVG and R IJ TCC * Patient declines the use of AVG due to discomfort. R IJ TCC remains in place (3) Pancytopenia: Plan: * 04/08/23 bone marrow biopsy: 9% plasma cells and no evidence of myelodysplasia * Hgb 7.8 this am. 05/24/23 iron sat 31%, ferritin 854. Will provide IV Venofer today and with next HD * Will provide CHRISTIANA w/ HD * Monitor H&H (4) UTI (urinary tract infection): Plan: * 05/22/23 urine culture is positive for enterococcus faecalis. Now on Ampicillin therapy (5) Physical deconditioning: Plan: * Continue PT/OT (6) Acute respiratory failure with hypoxia: Plan: * Improved. Possible aspiration. Await results of swallowing study Admission and Anticipated Discharge Date Admission Date: May 22, 2023 Subjective Mr. Londono was evaluated in his hospital room this morning. He was dialyzed yesterday for 2.4 L UF. He reports no complications. Breathing is subjectively improved. He was not wearing his O2 this morning. SaO2 is 93% on RA. Mr. Londono just completed his swallowing study Review of Systems Constitutional: no fever Eyes: no problem reported Ear, Nose, Mouth, Throat: no problem reported Respiratory: no cough and no dyspnea Cardiovascular: no chest pain Gastrointestinal: no abdominal pain, no nausea, no vomiting and no diarrhea/loose stools Integumentary: no rash Neurologic: + generalized weakness Physical Exam Constitutional: + frail appearing Eyes: PERRL, conjunctivae normal, anicteric sclerae ENMT: external ear and nose normal, oropharynx normal Neck: trachea midline, no thyromegaly Respiratory: Auscultation: + diminished lung sounds (at bases bilaterally) Cardiovascular: Rate/Rhythm: + irregularly irregular (prosthetic S2) Gastrointestinal (Abdomen): normal bowel sounds, soft, nontender, no hepatosplenomegaly Skin: no rashes, warm and dry Neurologic: Speech / Cognition: normal speech and normal cognition Psychiatric: Affect: euthymic affect Results & Data Vital Signs (Past 12 Hours) Vital Signs Temp Pulse Pulse Pulse Resp BP Pulse Ox 05/25/23 07:24 36.5 C 61 15 114/57 L 93 05/25/23 07:19 60 05/25/23 03:10 36.6 C 76 20 115/78 93 05/25/23 00:45 60 05/24/23 23:33 36.6 C 56 L 18 122/49 L 92 05/24/23 21:48 O2 Del Method O2 Flow Rate 05/25/23 07:24 Room Air 05/25/23 07:19 05/25/23 03:10 Nasal Cannula 2 05/25/23 00:45 05/24/23 23:33 Nasal Cannula 2 05/24/23 21:48 Nasal Cannula 2 Laboratory Results Laboratory Results - last 24 hr 05/25/23 06:38 WBC 3.78 L RBC 2.54 L Hgb 7.8 L Hct 24.9 L MCV 98.0 MCH 30.7 MCHC 31.3 L RDW Std Deviation 73.0 H RDW Coeff of Berto 20.4 H Plt Count 67 L MPV 11.3 Immature Gran % (Auto) 0.8 Neut % (Auto) 61.7 Lymph % (Auto) 19.0 [place] % (Auto) 10.1 Eos % (Auto) 7.1 Baso % (Auto) 1.3 Neut # (Auto) 2.33 Lymph # (Auto) 0.72 L [place] # (Auto) 0.38 Eos # (Auto) 0.27 Baso # (Auto) 0.05 Immature Gran # (Auto) 0.03 Polychromasia 1+ Anisocytosis Present PT 23.7 H INR 2.3 H Sodium 138 Potassium 3.5 Chloride 107 Carbon Dioxide 24 Anion Gap 7 BUN 18 Creatinine 3.17 H Est Cr Clr Drug Dosing 16.7 Est GFR ( Amer) 20.5 Est GFR (Non-Af Amer) 17.7 BUN/Creatinine Ratio 5.7 L Glucose 93 Calcium 8.5 L Phosphorus 2.7 Magnesium 1.9 Iron 49 TIBC 157 L Unsaturated IBC 108 L Transferrin % Sat 31 Ferritin 854.4 H PG Care Time/CCT Total # of Minutes Spent Total Time Spent with Patient: Total time spent is greater than 50% in coordination of care (as documented) at patient's floor/unit and/or counseling patient: Coding Level of Care Code 90714 SUB INP/OBS CARE 3/50MIN Diagnoses Acute exacerbation of CHF (congestive heart failure) I50.9 ESRD (end stage renal disease) on dialysis N18.6; Z99.2 Pancytopenia D61.818 UTI (urinary tract infection) N39.0 Physical deconditioning R53.81 Acute respiratory failure with hypoxia J96.01
--- NOTE | 2023-05-25 10:13 | XRay Report ---
XR chest 1V portable HISTORY: 78 years-old Male CHF acute shortness of breath COMPARISON: Chest radiograph 05/24/2023 TECHNIQUE: AP view of the chest FINDINGS: Cardiac silhouette is enlarged. Median sternotomy wires are present. Pulmonary vascular congestion wi th interstitial coarsening has mildly improved. Persistent layering pleural effusions with bibasilar consolidation. Right IJ dual-lumen hemodialysis catheter and right IJ [id number] catheter appear u nchanged. Chronic-appearing bilateral rib fractures. IMPRESSION: 1. Cardiomegaly with mildly improved pulmonary edema. 2. Persistent layering pleural effusions with bibasilar consolidation. ACT 112: Negative or not required by law. The above report was generated using voice recognition software. It may contain grammatical, syntax o r spelling errors. Electronically signed by: Archie Moore M.D. 05/25/2023 10:12 AM
[2023-05-25] MEDS: IRON SUCROSE 200 MG in 0.9 % SODIUM CHLORIDE 100 ML IV ONE (10:19)
--- NOTE | 2023-05-25 13:02 | Electrocardiogram Report ---
Test Reason : Blood Pressure : / mmHG Vent. Rate : 077 BPM Atrial Rate : 077 BPM P-R Int : 222 ms QRS Dur : 108 ms QT Int : 420 ms P-R-T Axes : 086 -16 082 degrees QTc Int : 476 ms Sinus rhythm with 1st degree A-V block Incomplete left bundle block Nonspecific ST and T wave abnormality Prolonged QT Abnormal ECG When compared with ECG of 03-APR-2023 23:50, Premature ventricular complexes are no longer Present LA interval has increased Confirmed by Juan R Medeiros ([id number]) on 05/25/2023 1:02:08 PM Referred By: Doug Franklin Confirmed By:Juan R Medeiros
[2023-05-25] MEDS: LOPERAMIDE HCL 2 MG CAP PO PRN (17:37)
--- NOTE | 2023-05-26 06:53 | Hospitalist Progress Note ---
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 Had dialysis today. IV amp switched to oral amox today for UTI (5 days total AB coverage). Most likely D/C tomorrow. #Acute on chronic HFrEF exac, improved - had progressive SOB over last 2 weeks, not on home diuresis since pt on dialysis - CXR on admission showed cardiomegaly + signs of CHF and dependent pleural effusions, likely secondary to CHF exac/ volume overload although if effusions worsen can consider thoracentesis - S/P 80 mg IV lasix in the ED, patient does make urine - symptoms of SOB have improved since diuresis - monitor weights daily, - nephrology consulted; bumex on nondialysis days, continue HD on TTSat #UTI (urinary tract infection) - UTI noted on UA on admission, pt has chronic cordero cath - Has grown pansensitive Klebsiella, pansensitive e. coli, and enterococcus in the past - will tx UTI with Q24 cefepime, s/p 1 dose CTX 05/21, - urine cx; E faecalis, so ABs switched from cefepime to ampicillin on 05/23, switched to po amox 05/25 #End-stage renal disease on hemodialysis TTSat - confirmed he had a full dialysis session Tuesday on admission - Nephrology consulted; appreciate dialysis recs - Continue chronic renal medications - monitor daily renal function and electrolytes #Dysphagia, chronic - evaluated by speech in Mar 2023 - seen again this admission for issues noted with swallowing large pills - speech notes he is about the same, as risk for microaspiration with thin liquids and gave recommendations to him to help with swallowing larger pills #Metabolic encephalopathy, resolved - Patient has been experiencing intermittent episodes of auditory and visual [place]arna lucinations on admission that have since resolved - CT head is negative for acute findings of the brain - VBG is WNL, renal function and BUN are stable, patient does appear to have a UTI with UA consistent with infection, UTI most likely cause of delirium - symptoms have improved, no more hallucinations noted by pt - awaiting blood cx; pending but neg at 48 hrs #S/P AVR (aortic valve replacement) - Previous [facility] metallic AVR in 1995 - explains that they follow with Anticoagulation clinic for his INR monitoring/dosing - While INR goal for metallic aortic valve replacements is normally 2.5-3.5, his states that she has discussed this multiple times with the Anticoagulation specialist and they stressed that they prefer to keep hime between 2.0-3.0 - continue home dose warfarin - Monitor daily INR, will keep his goal between 2.0-3.0 as performed by his outpatient anticoagulation clinic #Pancytopenia - Currently stable - Has been a chronic issue thought to be due to multiple myeloma - He is status post previous stem cell transplant - He underwent bone marrow biopsy during his admission in March of this year, results were reported as "No morphologic evidence of myelodysplasia is seen" - anemia may be at least partially secondary to ESRD, will give IV iron 4/3 per nephro - Monitor daily CBC and monitor for bleeding #Paroxysmal atrial flutter - Continue Warfarin and Metoprolol #Indwelling Cordero catheter present -Is followed outpatient by Urology and has his leg bag exchanged routinely -Will have his leg bag replaced by a larger bag on admission -Daily catheter care ordered DVT ppx; home warfarin (INR goal 2.0-3.0) Admission and Anticipated Discharge Date Admission Date: May 22, 2023 Supervising Physician Co-Signing Physician Notes Attending Physician Supervision Note: I independently interviewed and examined the patient and verified the taylor history and physical, reviewed labs and image studies and agree with findings and care plan noted above. Acute on chronic systolic CHF - Likely from poor water restriction. -HD for fluid removal per nephro. -Continue Bumex 1 mg po qAM to promote diuresis in between HD treatments. This was held in the past due to recurrent diarrhea with dehydration ESRD - Per nephro Catheter associated UTI - chronic indwelling cordero - Enterococcus - ampicillin Cachexia - likely multifactorial - ESRD, recurrent hospitalization, ?poor PO intake due to limited personal choice of foods, chronic off and on diarrhea, limited physical activity from chronic cordero. -diet changed to regular to improve PO intake per 's request. -Brought up goal of care 05/25/2023 - to consider further discussion through rest of hospital stay and later. Atelectasis - continue Incentive spirometer Concern of aspiration - no fever, normal wbc, no cough - no concern of pneumonia. speech therapy note reviewed. Bilateral pleural effusion - improving. Staying off O2. Pancytopenia - s/p bone marrow biopsy with no myelodysplasia. Metabolic encephalopathy - resolved. 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 Today, he states he is feeling fine. No questions or complaints. Notes plan for dialysis today. He states he thinks his will be by today but he is not sure. Review of Systems Review of Systems: Per HPI. Physical Exam Physical Exam: General:Alert, pleasant, no acute distress, HEENT: Normocephalic, moist oral mucosa, Cardio: Irregularly irregular rhythm, systolic click noted from mechanical valve Resp:Lungs clear to auscultation b/l but breath sounds diminished somewhat in bilateral lung bases, relatively unchanged from yesterday, no wheezes or rhonchi, GI: Soft and nontender, nondistended, bowel sounds active Skin: Warm, pink, dry Results & Data Results & Data Vital Signs (Past 12 Hours) Vital Signs Temp Pulse Pulse Resp BP Pulse Ox O2 Del Method 05/26/23 03:26 36.5 C 66 16 139/55 L 94 Room Air 05/25/23 23:22 Nasal Cannula 05/25/23 23:11 36.3 C L 64 18 146/55 H 96 Room Air 05/25/23 23:05 65 05/25/23 19:37 36.4 C L 64 18 133/61 96 Room Air O2 Flow Rate 05/26/23 03:26 05/25/23 23:22 2 05/25/23 23:11 05/25/23 23:05 05/25/23 19:37 Resident Activity Tracking Resident Involvement: Resident Care Provided Care Provided: Adult Hospital Medicine
[2023-05-26] MEDS ORDERED: SODIUM CHLORIDE 0.9% 1,000 ML IV PRN (07:00)
[2023-05-26 08:19] LABS: Hematocrit (blood only) 25.8 % (42.0-52.0); Hemoglobin 8.1 g/dl (14.0-18.0); Mean Corpuscular Hemoglobin 30.8 pg (25.0-34.0); Mean Corpuscular Hgb Conc 31.4 g/dL (32.0-36.0); Mean Corpuscular Volume 98.1 fL (80.0-100.0); Mean Platelet Volume 11.9 fL (9.4-12.4); Platelet Count 67 K/uL (130-400); RDW Coefficient of Variation 20.8 % (11.5-14.5); RDW Standard Deviation 73.8 fL (36.4-46.3); Red Blood Count 2.63 M/uL (4.70-6.10); White Blood Count 4.14 K/ul (4.8-10.8)
[2023-05-26 08:24] LABS: BUN Creatinine Ratio 6.5 (10-20); Calcium 8.9 mg/dl (8.6-10.3); Creatinine Clr Calc Pharmacy 11.9 ml/min; Est GFR (African American) 14.2 ml/min; Est GFR (Non-African American) 12.2 ml/min; Potassium 3.7 mmol/L (3.5-5.1)
[2023-05-26 08:30] LABS: Anisocytosis Present; Basophils # (auto) 0.06 K/uL (0.00-0.20); Basophils % (auto) 1.4 %; Eosinophils # (auto) 0.28 K/uL (0.00-0.50); Eosinophils % (auto) 6.8 %; Immature Granulocytes # (auto) 0.02 K/uL (0.01-0.20); Immature Granulocytes % (auto) 0.5 %; Lymphocytes % (auto) 19.3 %; Monocytes # (auto) 0.38 K/uL (0.11-0.59); Monocytes % (auto) 9.2 %; Neutrophils % (auto) 62.8 %; Polychromasia 1+
--- NOTE | 2023-05-26 08:42 | Nephrology Progress Note ---
Date of Service May 26, 2023 Assessment & Plan (1) Acute exacerbation of CHF (congestive heart failure): Plan: * Clinically suspect that patient has lost lean body mass due to recurrent hospitalizations. Weight this am is now 60.5 kg (2 kg below outpatient EDW). Will need to update dialysis EDW at time of discharge * 05/25/23 CXR: Pleural effusions are mildly improved following HD * Continue Bumex 1 mg po qAM to promote diuresis in between HD treatments. Morena see does have a chronic indwelling Chandler catheter * Will provide HD today and attempt additional 2 L UF. HD orders have been entered into EMR and HD RN notified. Will reassess weight, volume status, pulmonary exam in am (2) ESRD (end stage renal disease) on dialysis: Plan: * [facility] 3hr 30min 3K 2.5Ca Na 137 HCO3 32 F-180NR Qb400/Qd800 EDW 62.5kg L BC AVG and R IJ TCC * Patient declines the use of AVG due to discomfort. R IJ TCC remains in place (3) Pancytopenia: Plan: * 04/08/23 bone marrow biopsy: 9% plasma cells and no evidence of myelodysplasia * Hgb 7.8 this am. 05/24/23 iron sat 31%, ferritin 854. Will provide IV Venofer today and with next HD * Will provide CHRISTIANA w/ HD * Monitor H&H (4) UTI (urinary tract infection): Plan: * 05/22/23 urine culture is positive for enterococcus faecalis. Now on Ampicillin therapy (5) Physical deconditioning: Plan: * Continue PT/OT (6) Acute respiratory failure with hypoxia: Plan: * Improved. Possible aspiration. Speech therapy advises regular diet w/ thin liquids. Place medications whole or crushed in a carrier such as applesauce, yogurt or pudding Admission and Anticipated Discharge Date Admission Date: May 22, 2023 Subjective Mr. Londono was evaluated in his hospital room this morning. He was sitting up in bed reading a book. He was breathing comfortably on RA. Mr. Londono c/o weakness and was hopeful to receive more PT following HD today Review of Systems Constitutional: no fever Eyes: no problem reported Ear, Nose, Mouth, Throat: no problem reported Respiratory: no cough and no dyspnea Cardiovascular: no chest pain Gastrointestinal: no abdominal pain, no nausea, no vomiting and no diarrhea/loose stools Integumentary: no rash Neurologic: + generalized weakness Physical Exam Constitutional: + frail appearing Eyes: PERRL, conjunctivae normal, anicteric sclerae ENMT: external ear and nose normal, oropharynx normal Neck: trachea midline, no thyromegaly Respiratory: normal respiratory effort, lungs clear to auscultation Auscultation: + diminished lung sounds (at bases bilaterally) Cardiovascular: Rate/Rhythm: + irregularly irregular (prosthetic S2) Gastrointestinal (Abdomen): normal bowel sounds, soft, nontender, no hepatosplenomegaly Skin: no rashes, warm and dry Neurologic: Speech / Cognition: normal speech and normal cognition Psychiatric: Affect: euthymic affect Genitourinary: Chandler catheter in place draining clear yellow urine Results & Data Vital Signs (Past 12 Hours) Vital Signs Temp Pulse Pulse Resp BP Pulse Ox O2 Del Method 05/26/23 08:11 36.5 C 62 18 147/52 H 91 Room Air 05/26/23 07:04 71 05/26/23 03:26 36.5 C 66 16 139/55 L 94 Room Air 05/25/23 23:22 Nasal Cannula 05/25/23 23:11 36.3 C L 64 18 146/55 H 96 Room Air 05/25/23 23:05 65 O2 Flow Rate 05/26/23 08:11 05/26/23 07:04 05/26/23 03:26 05/25/23 23:22 2 05/25/23 23:11 05/25/23 23:05 Laboratory Results Laboratory Results - last 24 hr 05/25/23 05/26/23 06:38 07:34 WBC 4.14 L RBC 2.63 L Hgb 8.1 L Hct 25.8 L MCV 98.1 MCH 30.8 MCHC 31.4 L RDW Std Deviation 73.8 H RDW Coeff of Berto 20.8 H Plt Count 67 L MPV 11.9 Immature Gran % (Auto) 0.5 Neut % (Auto) 62.8 Lymph % (Auto) 19.3 [place] % (Auto) 9.2 Eos % (Auto) 6.8 Baso % (Auto) 1.4 Neut # (Auto) 2.60 Lymph # (Auto) 0.80 L [place] # (Auto) 0.38 Eos # (Auto) 0.28 Baso # (Auto) 0.06 Immature Gran # (Auto) 0.02 Polychromasia 1+ Anisocytosis Present Sodium 140 Potassium 3.7 Chloride 108 H Carbon Dioxide 23 Anion Gap 9 BUN 28 H Creatinine 4.30 H D Est Cr Clr Drug Dosing 11.9 Est GFR ( Amer) 14.2 Est GFR (Non-Af Amer) 12.2 BUN/Creatinine Ratio 6.5 L Glucose 89 Calcium 8.9 Ferritin 854.4 H PG Care Time/CCT Total # of Minutes Spent Total Time Spent with Patient: Total time spent is greater than 50% in coordination of care (as documented) at patient's floor/unit and/or counseling patient: Coding Level of Care Code 80610 SUB INP/OBS CARE 3/50MIN Diagnoses Acute exacerbation of CHF (congestive heart failure) I50.9 ESRD (end stage renal disease) on dialysis N18.6; Z99.2 Pancytopenia D61.818 UTI (urinary tract infection) N39.0 Physical deconditioning R53.81 Acute respiratory failure with hypoxia J96.01
[2023-05-26] MEDS: IRON SUCROSE 200 MG in SYRINGE 0 ML IV ONE (11:34)
[2023-05-26] MEDS: EPOETIN ALFA 10,000 UNITS/ML VIAL IV ONE (11:34)
--- NOTE | 2023-05-26 16:09 | XRay Report ---
XR chest 1V portable CLINICAL HISTORY: post-dialysis, f/u pulm edema/effusions TECHNIQUE: Single frontal radiograph of the chest was obtained. Comparison: Comparison is made to chest radiograph 05/25/2023 FINDINGS: Lines and tubes are stable. Cardiomegaly is noted. The aortic arch is calcified. Interval mild improv ement in right lower lung airspace opacity. Prominence of the pulmonary vasculature is seen. Small bi lateral pleural effusions, slightly improved from prior exam. IMPRESSION: Cardiomegaly with slightly improved pulmonary edema. Small bilateral pleural effusions have improved from prior exam. ACT 112: Negative or not required by law. Electronically signed by: Jacob Moreira M.D. 05/26/2023 4:07 PM
[2023-05-26] MEDS: AMOXICILLIN 250 MG CAP PO SCH (17:10)
[2023-05-27 07:23] LABS: Basophils # (auto) 0.06 K/uL (0.00-0.20); Basophils % (auto) 1.5 %; Eosinophils # (auto) 0.24 K/uL (0.00-0.50); Eosinophils % (auto) 5.9 %; Hematocrit (blood only) 26.7 % (42.0-52.0); Hemoglobin 8.3 g/dl (14.0-18.0); Immature Granulocytes # (auto) 0.03 K/uL (0.01-0.20); Immature Granulocytes % (auto) 0.7 %; Lymphocytes # (auto) 0.95 K/uL (1.20-3.40); Lymphocytes % (auto) 23.2 %; Mean Corpuscular Hemoglobin 30.9 pg (25.0-34.0); Mean Corpuscular Hgb Conc 31.1 g/dL (32.0-36.0); Mean Corpuscular Volume 99.3 fL (80.0-100.0); Monocytes # (auto) 0.31 K/uL (0.11-0.59); Monocytes % (auto) 7.6 %; Neutrophils % (auto) 61.1 %; Platelet Count 81 K/uL (130-400); RDW Coefficient of Variation 21.5 % (11.5-14.5); RDW Standard Deviation 75.7 fL (36.4-46.3); Red Blood Count 2.69 M/uL (4.70-6.10); White Blood Count 4.09 K/ul (4.8-10.8)
[2023-05-27 07:37] LABS: BUN Creatinine Ratio 5.7 (10-20); Calcium 8.8 mg/dl (8.6-10.3); Creatinine Clr Calc Pharmacy 11.2 ml/min; Est GFR (African American) 14.6 ml/min; Est GFR (Non-African American) 12.6 ml/min; Potassium 3.7 mmol/L (3.5-5.1)
[2023-05-27 07:51] LABS: Anisocytosis Present; Ovalocytes 1+; Polychromasia 1+
--- NOTE | 2023-05-27 08:34 | Nephrology Progress Note ---
Date of Service May 27, 2023 Assessment & Plan (1) Acute exacerbation of CHF (congestive heart failure): Plan: * Clinically suspect that patient has lost lean body mass due to recurrent hospitalizations. I have called outpatient HD and advised them to lower EDW to 58 kg * 05/25/23 CXR: Pleural effusions are mildly improved following HD * Continue Bumex 1 mg po qAM to promote diuresis in between HD treatments. Patient does have a chronic indwelling Chandler catheter * If discharge is anticipated, please have patient resume outpaient HD tomorrow at [facility] ([phone]) (2) ESRD (end stage renal disease) on dialysis: Plan: * [facility] 3hr 30min 3K 2.5Ca Na 137 HCO3 32 F-180NR Qb400/Qd800 EDW 58 kg L BC AVG and R IJ TCC * Patient declines the use of AVG due to discomfort. R IJ TCC remains in place (3) Pancytopenia: Plan: * 04/08/23 bone marrow biopsy: 9% plasma cells and no evidence of myelodysplasia * H&H is trending up following IV Venofer and CHRISTIANA therapy (4) UTI (urinary tract infection): Plan: * 05/22/23 urine culture is positive for enterococcus faecalis. Remains on Amoxicillin therapy (5) Physical deconditioning: Plan: * Continue PT/OT (6) Acute respiratory failure with hypoxia: Plan: * Improved. Possible aspiration. Speech therapy advises regular diet w/ thin liquids. Place medications whole or crushed in a carrier such as applesauce, yogurt or pudding Admission and Anticipated Discharge Date Admission Date: May 22, 2023 Subjective Mr. Londono was evaluated in his hospital room this morning. He was breathing comfortably on RA. Mr. Londono reports that he participated in PT yesterday and was able to get OOB and walk the hallway using a rolling walker. He was not SOB while ambulating Review of Systems Constitutional: no fever Eyes: no problem reported Ear, Nose, Mouth, Throat: no problem reported Respiratory: no cough and no dyspnea Cardiovascular: no chest pain Gastrointestinal: no abdominal pain, no nausea, no vomiting and no diarrhea/loose stools Integumentary: no rash Neurologic: + generalized weakness Physical Exam Constitutional: + frail appearing Eyes: PERRL, conjunctivae normal, anicteric sclerae ENMT: external ear and nose normal, oropharynx normal Neck: trachea midline, no thyromegaly Respiratory: normal respiratory effort, lungs clear to auscultation Auscultation: lungs clear to auscultation bilaterally Cardiovascular: Rate/Rhythm: + irregularly irregular (prosthetic S2) Gastrointestinal (Abdomen): normal bowel sounds, soft, nontender, no hepatosplenomegaly Skin: no rashes, warm and dry Neurologic: Speech / Cognition: normal speech and normal cognition Psychiatric: Affect: euthymic affect Results & Data Vital Signs (Past 12 Hours) Vital Signs Temp Pulse Pulse Resp BP Pulse Ox O2 Del Method 05/27/23 08:14 36.7 C 67 20 136/65 93 Room Air 05/27/23 04:02 36.9 C 74 18 130/65 94 Room Air 05/26/23 23:58 80 05/26/23 23:23 36.7 C 79 18 146/91 H 93 Room Air Laboratory Results Laboratory Results - last 24 hr 05/27/23 07:05 WBC 4.09 L RBC 2.69 L Hgb 8.3 L Hct 26.7 L MCV 99.3 MCH 30.9 MCHC 31.1 L RDW Std Deviation 75.7 H RDW Coeff of Berto 21.5 H Plt Count 81 L MPV 12.0 Immature Gran % (Auto) 0.7 Neut % (Auto) 61.1 Lymph % (Auto) 23.2 [place] % (Auto) 7.6 Eos % (Auto) 5.9 Baso % (Auto) 1.5 Neut # (Auto) 2.50 Lymph # (Auto) 0.95 L [place] # (Auto) 0.31 Eos # (Auto) 0.24 Baso # (Auto) 0.06 Immature Gran # (Auto) 0.03 Polychromasia 1+ Anisocytosis Present Ovalocytes 1+ Sodium 138 Potassium 3.7 Chloride 108 H Carbon Dioxide 21 Anion Gap 9 BUN 24 H Creatinine 4.20 H Est Cr Clr Drug Dosing 11.2 Est GFR ( Amer) 14.6 Est GFR (Non-Af Amer) 12.6 BUN/Creatinine Ratio 5.7 L Glucose 87 Calcium 8.8 PG Care Time/CCT Total # of Minutes Spent Total Time Spent with Patient: Total time spent is greater than 50% in coordination of care (as documented) at patient's floor/unit and/or counseling patient: Coding Level of Care Code 51175 SUB INP/OBS CARE 50MIN Diagnoses Acute exacerbation of CHF (congestive heart failure) I50.9 ESRD (end stage renal disease) on dialysis N18.6; Z99.2 Pancytopenia D61.818 UTI (urinary tract infection) N39.0 Physical deconditioning R53.81 Acute respiratory failure with hypoxia J96.01
--- NOTE | 2023-05-27 13:28 | Discharge Summary ---
Date of Service May 27, 2023 Admission HPI Per Admitting Provider Messi is a 78 year old male with a PMH significant for ESRD on HD TTSat, HFrEF (LVEF of 35-40%, moderately reduced RVEF as of 04/02/23), previous aortic valve replacement in 1995 (on Warfarin), Paroxysmal atrial flutter, BPH with chronic urinary retention, chronic cordero catheter, and chronic thrombocytopenia who was sent to the ED from the [facility] in-clinic due to ongoing SOB/SETH. He remained stable in the ED. Labs were significant for a platelet count of 90, INR of 1.6, BNP of 3555, full respiratory biofire negative, and UA in process. Chest xray was read as "1. Cardiomegaly with evidence of congestive failure. 2. Layering pleural effusions with dependent consolidation.". CT of the head/brain wo con was read as "1. No acute infarct or intracranial hemorrhage. 2. Heterogeneous marrow pattern within the calvarium which may contain small lucent lesions. This raises the possibility of multiple myeloma. Correlation with recent bone marrow biopsy results recommended.". Prior to admission the patient was given 80 mg IV lasix. At the time of the exam the patient was sitting in bed in no acute distress with his sitting bedside, history was obtained from both. The patient has been experiencing progressive SOB and SETH over the past 1-2 weeks. He has also had associated BL LE pitting edema and decreased exercise tolerance due to his SOB. He tolerated a full dialysis session yesterday. His states that she took him to Urgent Care earlier today as the patient was having difficulty speaking in complete sentences and had another episode of auditory hallucinations. When asked about hallucinations the patient and his explain that the patient has been experiencing auditory and visual hallucinations since his last admission in March of this year. They explained that the patient will start to speak with to voices which she does not hear. This will sometimes occur shortly after he wakes up from sleep or a nap. The patient believes that he will see bugs on his extremities and blankets which are not really there. He said this was occurring last admission but he did not tell anyone. While discussing his hallucinations he pointed to a piece of dirt on his blanket and said it looked like a but that was moving. He also pointed to 2 other dark spots on his blankets that myself and his could both see. His states, "maybe he needs to get his eyes checked". They deny the patient having recent fever, chills, chest pain, productive cough, nausea, vomiting, abd pain, hematuria, diarrhea, melena, and recent trauma. He is a full code and his is his POA. Please refer to Dr. Quigley's attestation for any changes to the treatment plan Admission Exam Per Admitting Provider Physical Exam: General: In no acute distress, stated age, chronically ill appearing but non- toxic HEENT: Normocephalic, atraumatic, no scleral icterus, pupils around round, symmetrical, and reactive to light, dry mucus membranes, trachea midline, no thyromegaly Chest/Pulm: No respiratory distress, symmetrical chest expansion, decreased breath sounds in the BL lower and mid lung lofton Cardiac: RRR, click from mechanical heart valve noted Abdomen: Negative for ascites and bruising, normoactive bowel sounds, soft, non- tender to palpation throughout : Chronic cordero is in place and draining clear, yellow urine Musculoskeletal: Symmetrical and without signs of acute trauma, upper and lower extremities with full ROM, no atrophy, spasticity, or flaccidity Extremities: Radial, dorsalis pedis, and posterior tibial pulses are intact and symmetrical, 2+ pitting edema noted in the BL LE's Skin: Warm, dry, no rashes , lesions, or scars noted Neuro: Alert and oriented to person and place only, no focal defects, CN II-XII tested and intact, tremors noted Psych: No acute distress, calm and cooperative during the exam, Principal Diagnosis Acute congestive heart failure exac in the setting of ESRD Discharge Exam General:Alert, pleasant, no acute distress, HEENT: Normocephalic, moist oral mucosa, Cardio: Irregularly irregular rhythm, systolic click noted from mechanical valve Resp:Lungs clear to auscultation b/l but breath sounds diminished somewhat in bilateral lung bases, relatively unchanged from yesterday, no wheezes or rhon chi, GI: Soft and nontender, nondistended, bowel sounds active Skin: Warm, pink, dry Discharge Data Allergies Allergy/AdvReac Type Severity Reaction Status Date / Time benzonatate Allergy Severe Hallucinati Unverified 05/06/23 15:00 [From Glenroy Billingsley] ng ASHLEY Inhibitors AdvReac Intermediate COUGH Verified 05/06/23 15:00 acetic acid AdvReac Intermediate Vinegar - Verified 05/06/23 15:00 Swelling of Lip/Tongue/Throat Consultations 05/22/23 16:42 ED Decision to Admit Stat 05/22/23 17:08 Consult Nephrology Routine Ordered Studies 05/22/23 14:54 CT head/brain wo con Stat Hospital Course (1) Acute exacerbation of CHF (congestive heart failure): (2) End-stage renal disease on hemodialysis: (3) Metabolic encephalopathy: (4) UTI (urinary tract infection): (5) Paroxysmal atrial flutter: (6) Indwelling Cordero catheter present: (7) Pancytopenia: (8) S/P AVR (aortic valve replacement): Plan Pt is a 78 yo male with a past medical history of s/p aortic valve replacement 1995, ESRD on hemodialysis TTSat, chronic cordero for BPH with urinary retention, HFrEF EF 35-40% last echo mar 2023, dyslipidemia, paroxysmal atrial flutter, and hx multiple myeloma s/p stem cell transplant who presents to the hospital on 05/21 for 2 weeks of progressive SOB and delirium found to have acute CHF exac and UTI. #Acute on chronic HFrEF exac, resolved - had progressive SOB over last 2 weeks prior to admission, not on home diuresis since pt on dialysis - CXR on admission showed cardiomegaly + signs of CHF and dependent pleural effusions, likely secondary to CHF exac/ volume overload although if effusions worsen can consider thoracentesis - S/P 80 mg IV lasix in the ED, patient does make urine - symptoms of SOB have improved since diuresis - monitor weights daily, - nephrology consulted; bumex on nondialysis days, continue HD on TTSat #UTI (urinary tract infection) - UTI noted on UA on admission, pt has chronic cordero cath - Has grown pansensitive Klebsiella, pansensitive e. coli, and enterococcus in the past - urine cx; E faecalis, so ABs switched from empiric cefepime to ampicillin on 05/23, switched to po amox 05/25 to finish 05/27 with last dose in the pm, 5 day course total #End-stage renal disease on hemodialysis TTSat, chronic - confirmed he had a full dialysis session Tuesday on admission - Nephrology consulted; appreciate dialysis recs while here - Continue chronic renal medications - continue dialysis as usual on discharge #Dysphagia, chronic - evaluated by speech in Mar 2023 - seen again this admission for issues noted with swallowing large pills - speech this admission note he is about the same, as risk for microaspiration with thin liquids and gave recommendations to him to help with swallowing larger pills #Metabolic encephalopathy, resolved - Patient has been experiencing intermittent episodes of auditory and visual hallucinations on admission that have since resolved - CT head is negative for acute findings of the brain - admission VBG is WNL, renal function and BUN were stable, - symptoms have improved, no more hallucinations noted by pt past admission - blood cx; neg @ 48 hrs - most likely acute delirium state in the setting of UTI Total Time Total Time Spent Total Time Spent (In Minutes): As per attending attestation Discharge Plan Discharge Items Patient Disposition: Home - Self-Care Reason For Visit: GEOFFREY/SETH, PLEURAL EFFUSIONS, CHF Discharge Diagnosis: Acute congestive heart failure exac in the setting of End stage renal disease on dialysis Activity: Per Instructions section Non-emergency contact: Primary Care Provider and Reinstatement Clerk Call non-emergency contact if: you have any medication questions and your symptoms worsen Follow-up/Referrals: Pro,Doug Fowler MD [Primary Care Provider] - 06/03/23 10:30 am (with Virginia Vieira PA-C. ) Diet: Low Sodium (2gm) Addtl Attending Provider Instructions: You were admitted for an acute CHF (congestive heart failure) exacerbation. This is a condition in which your heart does not squeeze with enough force to push the normal amount of blood out into the rest of your body, so fluid accumulates in areas such as the lungs and causes symptoms such as shortness of breath. You were treated with diuretics (also known as "water pills") to help remove extra fluid from your body in addition to your usual dialysis. Your symptoms of shortness of breath associated with having extra fluid in the lungs have improved, and we feel it is safe for you to return home. You were also found to have a UTI (also called a urinary tract infection) when you came to the hospital. We started you initially on an IV antibiotic and later transitioned it to an oral antibiotic called amoxicillin. Sometimes, UTIs can cause older folks to feel out of sorts and may lead to an acute state of delirium, which is a self-limited condition of confusion and sometimes hallucinations that goes away when the infection is gone and the body returns back to normal. People with delirium may seem a bit unlike their normal self for a few weeks to a month or two, but should not worsen over this time. You should plan to resume dialysis appointments as normal tomorrow on Tuesday05/28/2023. Medications: Your medication list has been reviewed and reconciled upon discharge to ensure accuracy and continuity of care. An updated list of all your medications is included with your hospital discharge paperwork. Please review this list closely, and make note of any changes. We sent a new medication called Amoxicillin to your pharmacy. Take Amoxicillin 250 mg every 12 hours (twice daily) until you run out. This is the antibiotic for your UTI. Your next dose is tonight (05/27/2023) around 6 pm. Then, you will take the last two doses tomorrow morning and tomorrow night to complete the antibiotic course. No repeat urine test needs to be done to ensure this clears, as we have chosen an antibiotic for the bacteria your urine culture grew. We sent a new medication called Bumex to your pharmacy. Take Bumex 1 mg daily in the morning on non-dialysis days only. For example, if you have dialysis on Ipof-Plieu-Nxs, you should take this medication the mornings of Rkl-Ekf-Ggk-Tue. Do not take it days you have dialysis. This is your diuretic (also called a "water pill") that will keep extra fluid from accumulating in your lungs between dialysis sessions. Please do not stop taking this medication unless directed to do so by your primary care physician or merchandising consultant. Take your medications as instructed; do not skip a dose of your medicines. Make sure all of your doctors know every medicine you are taking (including [id number] medicines, vitamins, and supplements). Call your primary care provider before taking any new medicines (including over- the-counter medicines, vitamins, and supplements), because some of these may interact with your current medications, or may make your symptoms worse. Tell your primary care provider if you cannot afford your medications. Activity: You can do normal everyday activities as your body allows. Take rest breaks if you feel tired. Do not overexert. Stop activity if you have pain, shortness of breath or feel dizzy. Weight: It is important for you to monitor your daily weights. Weigh yourself every morning using the same scale. Wear the same amount of clothing each time, without anything in your pockets. Keep a log of your daily weights, and bring this log with you every time you see your primary care physician, or any other doctor. Diet: Follow a low sodium (salt) diet. We recommend limiting your sodium intake to under 2000mg per day. Choose foods and drinks with low or no salt. Remove the salt shaker from your table at home. We also recommend limiting your daily fluid intake to 1800mL (60oz) in order to help your body balance fluids. Do not drink excessive beer, alcohol, or wine. If you are struggling with these restrictions, or need additional help incorporating healthy habits into your daily life, please contact your primary care provider. Follow-up appointments: Make an appointment with your primary care physician within one week of discharge. A copy of this summary will be sent to them. Every time you see your primary care physician, or any other doctor, bring your medication list, a list of questions, and your recent weights. CONTACT YOUR PRIMARY CARE PROVIDER if you experience any of the following: Shortness of breath or difficulty breathing Swelling of your feet, ankles, hands or abdomen Feeling tired with normal activity or experiencing dizziness or fainting Difficulty following your treatment plan, or difficulty taking medications CALL 911 OR GO TO THE EMERGENCY DEPARTMENT if you experience any of the following: Severe abdominal pain or nausea/vomiting Severe chest pain, or chest pain that radiates (moves) to your jaw or arm Sudden, severe shortness of breath or difficulty breathing Thank you for allowing us to participate in your care. Pending Studies at Discharge: No Stand-Alone Forms: [facility] Medications and DC Order Prescriptions: New amoxicillin 250 mg Capsule 250 mg PO Q12H Qty: 3 0RF Rx Instructions: Please take next dose at 6pm tonight (05/26), then tomorrow morning and tomorrow evening to finish course. bumetanide 1 mg Tablet 1 mg PO QAM Qty: 30 1RF Rx Instructions: Please take on non-dialysis days only. If dialysis is Qmpu-Abkuz-Kvi, take 1 pill in the morning on Ehx-Jlz-Zfn-Sun. Continued metoprolol tartrate 50 mg tablet 50 mg PO BID Qty: 60 5RF Rx Instructions: hold AM dose on HD days Tuesday, , Tuesday. loperamide 2 mg capsule 2 mg PO Q3H PRN (Reason: loose stool) Qty: 30 5RF alprazolam [Xanax] 0.25 mg tablet 0.25 mg PO .COMPLEX Qty: 30 0RF Rx Instructions: 0.25 mg orally prior to hemodialysis; tamsulosin 0.4 mg capsule 0.4 mg PO HS Qty: 90 3RF simvastatin 20 mg tablet 20 mg PO HS Qty: 90 3RF sevelamer carbonate 800 mg Tablet 800 mg PO TIDM Rx Instructions: must administer with a meal/food cholecalciferol (vitamin D3) [Vitamin D3] 50 mcg (2,000 unit) Capsule 2,000 mcg PO BID ProRenal 8 mg iron-800 mcg-1,000 unit tablet 1 tab PO DAILY amoxicillin 500 mg capsule 2,000 mg PO ONCE PRN (Reason: dental appointment) Creon 36,000-114,000- 180,000 unit capsule,delayed release(DR/EC) 1 cap PO QID Rx Instructions: with food warfarin 3 mg Tablet 3 mg PO DAILY@1600 Qty: 20 0RF mirtazapine 15 mg Tablet 7.5 mg PO HS Qty: 30 0RF polyethylene glycol 3350 [Miralax] 17 gram Powder In Packet 17 g PO DAILY PRN (Reason: constipation) Qty: 0 0RF cyanocobalamin (vitamin B-12) 1,000 mcg/mL solution 1,000 mcg IM MONTHLY Rx Instructions: unable to verify Discharge Orders: Discharge Order (Routine); Ordered 05/27/23 Ordered By: Daija Kilgore Admission Data Admit Date/Time: 05/22/23 16:48 Attending Provider: Eve Arndt Admit Provider: Arturo Quigley Primary Care Provider: Doug Frnaklin Other Providers: Arturo Quigley; Brett Zhang; [place] Other Interventions: Discharge Summary Assessment (RN) Last Done: 05/27/23 14:24 Supervising Physician Co-Signing Physician Notes Attending Physician Supervision Note: I independently interviewed and examined the patient and verified the taylor history and physical, reviewed labs and image studies and agree with findings and care plan noted above. Acute hypoxic resp failure - resolved. Acute on chronic systolic CHF in setting of ESRD - Likely from poor water restriction. -Recieved HD modifications per nephro for fluid removal. -Resumed Bumex 1 mg po qAM to promote diuresis in between HD treatments. This was held in the past due to recurrent diarrhea with dehydration Bilateral pleural effusion - improved. Catheter associated UTI - chronic indwelling cordero - Enterococcus - to complete course of ampicillin at home. Cachexia - likely multifactorial - ESRD, recurrent hospitalization, poor PO intake due to limited personal choice of foods, chronic off and on diarrhea, limited physical activity from chronic cordero. -diet changed to regular during later part of hospital stay to improve PO intake per 's request. -Brought up goal of care 05/25/2023 - to consider further discussion in outpatient setting. Concern of aspiration - no fever, normal wbc, no cough - no concern of pneumonia. speech therapy dietary modifications were discussed with patient and . Pancytopenia - s/p bone marrow biopsy with no myelodysplasia. Metabolic encephalopathy - resolved. Deconditioning - outpatient PT/OT Resident Activity Tracking Resident Involvement: Resident Care Provided Care Provided: Adult Hospital Medicine
== END 2023-05-27 17:17 | disposition home health service (06) | DRG 698 ==
LOC: ED 14:29 → EDINP 16:48 → SUATTDRO 16:48 → 2N 20:24